=== PATIENT | male | born 1940 | race Caucasian/White ===

== ENCOUNTER 2017-07-29 16:45 | Emergency (ER) | payer MEDICARE, SELFPAY ==
--- NOTE | 2017-07-29 16:48 | EKG12_ITS ---
Test Reason : CP Blood Pressure : / mmHG Vent. Rate : 094 BPM Atrial Rate : 094 BPM P-R Int : 138 ms QRS Dur : 090 ms QT Int : 354 ms P-R-T Axes : 085 081 071 degrees QTc Int : 442 ms Sinus rhythm with Premature atrial complexes Otherwise normal ECG Confirmed by FRANDY THOMAS ([id number]), primer expeditor and drier LAURA WONG ([id number]) on 08/03/2017 2:44:10 PM Referred By: MARIO Confirmed By:FRANDY THOMAS
--- NOTE | 2017-07-29 16:48 | RAD_ITS ---
STUDY: X-RAY CHEST REASON FOR EXAM: Male, 77 years old. Chest pain, bilateral leg numbness TECHNIQUE: Single AP portable view of the chest. COMPARISON: Prior study of 11/18/2016 FINDINGS: hall monitor leads are present. Emphysematous changes of the lungs are noted. Surgical changes of both upper lobes are noted. There is no demonstrated pleural abnormality. Normal size heart. Normal mediastinum and cinthya. Normal visualized pulmonary arteries. There are calcified plaques of the aortic arch. Normal visualized thoracic spine. Normal visualized ribs, clavicles, and shoulders. There is no demonstrated abnormality of the visualized soft tissue structures of the upper abdomen. RAD/Chest 1 View (Portable) IMPRESSION: Emphysematous changes of the lungs are noted. The lungs are hyperinflated. Status post surgical changes of both upper lobes are noted. Calcified plaques of the aortic arch. No acute cardiopulmonary disease process is seen. Chest findings are stable in the interval. Electronically Signed: Tahir Balbuena MD at 17:13 EDT , Service support ,
[2017-07-29 16:50] VITALS: BP 152/91; PULSE 97; RESP 18; TEMP 36.6; O2SAT 97; BMI 28.7
[2017-07-29 16:53] VITALS: O2SAT 98
[2017-07-29] MEDS: Aspirin 81 MG TAB.CHEW 324 MG PO (16:57)
[2017-07-29 17:10] LABS: Absolute Lymphocyte Count 1.31 X10^3/ul (0.83-4.51); Absolute Neutrophil Count 4.1 X10^3/uL (2.0-7.7); Basophil# 0.03 X10^3/uL; Basophil% 0.5 % (0-1); Eosinophil# 0.14 X10^3/uL; Eosinophils% 2.3 % (0-5); Hematocrit 42.6 % (40-54); Hemoglobin 13.9 g/dl (13.0-16.5); Lymphocyte # 1.31 X10^3/ul (4.0); Lymphocyte % 21.2 % (19-41); Mean Corp Hgb Conc 32.6 g/gl (32-36); Mean Corpuscular Hgb 28.7 pg (27.0-32.0); Mean Platelet Vol. 9.8 fl (6.2-12.0); Monocyte# 0.59 X10^3/uL; Monocyte% 9.5 % (0-10); Neutrophil # 4.09 X10^3/uL (2.7-7.7); Neutrophil % 66.2 % (47-70); Platelet Count 248 K/mm3 (150-450); RBC Distribution Width CV 13.4 % (11.6-14.6); RBC Distribution Width SD 43.5 fl (35.1-43.9); Red Blood Count 4.84 M/mm3 (4.6-6.2); White Blood Count 6.2 K/mm3 (4.4-11.0)
[2017-07-29 17:11] LABS: POSITIVE COUNT NO; POSITIVE DIFFERENTIAL NO; POSITIVE MORPHOLOGY NO
[2017-07-29 17:24] LABS: Anion Gap 7 (5-15); BUN 15 mg/dL (7-18); BUN/Creat Ratio 12.4 RATIO (10-20); Calcium,Total 8.9 mg/dL (8.5-10.1); Chloride 107 mmol/L (98-107); Creatinine, Serum 1.21 mg/dL (0.70-1.30); EST Glomerular Filtration Rate 61 mL/min (>60); Est Glom Filt Rate - Afr Amer 74 mL/min (>60); Estimated Creatinine Clearance 46.28 ml/min; Glucose 122 mg/dL (74-106); Potassium 3.9 mmol/L (3.5-5.1); Sodium Level 139 mmol/L (136-145)
[2017-07-29 17:46] VITALS: BP 150/77; PULSE 85; RESP 18; O2SAT 98
[2017-07-29 18:16] VITALS: BP 148/73; PULSE 88; RESP 25; O2SAT 98
[2017-07-29 19:00] VITALS: BP 175/86; PULSE 91; RESP 18; O2SAT 98
[2017-07-29 19:06] VITALS: O2SAT 98
--- NOTE | 2017-07-29 20:04 | ED.VISSUMM ---
- ER Visit Summary Date of Service: 07/29/17 Chief Complaint: Bilateral legs tingling. History of Present Illness: The patient is a 77 M playing of bilateral legs tingling. Said last night he had mild chest discomfort in his epigastric region. That has since resolved. Denies any back pain. Denies any radiation to his upper chest, neck back or shoulders. No associated nausea, diaphoresis or worsening shortness of breath. He has chronic COPD but is not on home O2 because he cannot qualify for home O2. He does have a history of a known cardiac stent. Is on aspirin. Currently is pain-free. He denies any trouble moving his arms or legs. Denies any speech problems or acute change in his vision. Physical Examination: Well-appearing older male. Vital signs are stable afebrile. Pulse ox 90% on 2 L. H EENT exam unremarkable. No facial droop. Pupils round reactive light. Neck nontender no JVD. Lungs coarse breath sounds few scattered wheezing but no distress. Heart regular rate and rhythm no murmur. Abdomen soft nontender normal bowel sounds no peritoneal signs. No reproducible tenderness. Right upper right lower quadrant unremarkable. Moving all 4 extremities. Neurovascular intact. Calves are nontender without edema or cords. Is 5/5 livestock brands inspector strength. Dorsi plantar flexion intact. No signs of cauda equina. He can lift both legs off the bed. Neurologic exam is normal he has no focal motor or sensory deficits. His NIH is 0. Back exam normal. Test Results: CBC normal. Chemistries unremarkable. Troponin normal. Chest x-ray chronic changes consistent with COPD but no acute process. His EKG is a sinus rhythm with PACs. But no signs of PR or ischemia. Emergency Department Course and Treatment: Repeat exam patient is doing well. His exam is unchanged. Nurses did get him up and walk him he walked without any difficulty. He had no ataxia. He had no significant weakness in his legs. His pulse ox was 92% or greater. Treatment Plan: Patient be discharged to home. To follow-up with his primary care physician Dr. Dutch Lee. He meets no criteria for admission. I do have a long discussion with his and explained to her there is really nothing to admit him for at this time. Disposition: Discharge Impression: Atypical transient chest pain resolved Legs tingling of uncertain etiology History of CAD with cardiac stent This note was generated with [employer] dictation software. It may contain incorrect words, spelling, and punctuation that were not noted in review of the chart prior to signing ED Disposition - Plan for ED Patient: Chief Complaint: Chest Pain Referrals: Dutch Lee III, MD [Primary Care Provider] -
--- NOTE | 2017-07-29 20:08 | ED.DCSUM_ITS ---
- ER Visit Summary Date of Service: 07/29/17 Chief Complaint: Bilateral legs tingling. History of Present Illness: The patient is a 77 M playing of bilateral legs tingling. Said last night he had mild chest discomfort in his epigastric region. That has since resolved. Denies any back pain. Denies any radiation to his upper chest, neck back or shoulders. No associated nausea, diaphoresis or worsening shortness of breath. He has chronic COPD but is not on home O2 because he cannot qualify for home O2. He does have a history of a known cardiac stent. Is on aspirin. Currently is pain-free. He denies any trouble moving his arms or legs. Denies any speech problems or acute change in his vision. Physical Examination: Well-appearing older male. Vital signs are stable afebrile. Pulse ox 90% on 2 L. H EENT exam unremarkable. No facial droop. Pupils round reactive light. Neck nontender no JVD. Lungs coarse breath sounds few scattered wheezing but no distress. Heart regular rate and rhythm no murmur. Abdomen soft nontender normal bowel sounds no peritoneal signs. No reproducible tenderness. Right upper right lower quadrant unremarkable. Moving all 4 extremities. Neurovascular intact. Calves are nontender without edema or cords. Is 5/5 textile screen maker strength. Dorsi plantar flexion intact. No signs of cauda equina. He can lift both legs off the bed. Neurologic exam is normal he has no focal motor or sensory deficits. His NIH is 0. Back exam normal. Test Results: CBC normal. Chemistries unremarkable. Troponin normal. Chest x- ray chronic changes consistent with COPD but no acute process. His EKG is a sinus rhythm with PACs. But no signs of NV or ischemia. Emergency Department Course and Treatment: Repeat exam patient is doing well. His exam is unchanged. Nurses did get him up and walk him he walked without any difficulty. He had no ataxia. He had no significant weakness in his legs. His pulse ox was 92% or greater. Treatment Plan: Patient be discharged to home. To follow-up with his primary care physician Dr. Dutch Lee. He meets no criteria for admission. I do have a long discussion with his and explained to her there is really nothing to admit him for at this time. Disposition: Discharge Impression: Atypical transient chest pain resolved Legs tingling of uncertain etiology History of CAD with cardiac stent This note was generated with Muna dictation software. It may contain incorrect words, spelling, and punctuation that were not noted in review of the chart prior to signing ED Disposition - Plan for ED Patient: Chief Complaint: Chest Pain Referrals: Dutch Lee III, MD [Primary Care Provider] -
--- NOTE | 2017-07-29 20:08 | ED.DEP ---
ED Disposition - Plan for ED Patient: Disposition: Home or Assisted Living Chief Complaint: Chest Pain Instructions: ED Chest Pain Atypical Unkn Cause Referrals: Dutch Lee III, MD [Primary Care Provider] - As soon as possible Additional Instructions: Your tests were unremarkable. Follow-up your primary care physician.
== END 2017-07-29 20:20 | disposition home or self-care (01) ==
PROVIDERS: Emergency Provider Emergency Medicine; Family Provider Family Medicine; PCP Family Medicine
DX: R07.89 Other chest pain (principal); R20.2 Paresthesia of skin; I25.10 Atherosclerotic heart disease of native coronary artery without angina pectoris; I49.3 Ventricular premature depolarization; J44.9 Chronic obstructive pulmonary disease, unspecified; Z95.5 Presence of coronary angioplasty implant and graft; Z79.82 Long term (current) use of aspirin; Z79.899 Other long term (current) drug therapy
CPT/HCPCS: 71045; 80048; 84484; 85025; 93005; 99285

== ENCOUNTER 2017-08-24 19:08 | Inpatient (IN) | payer MEDICARE, SELFPAY ==
[2017-08-24] VITALS (9 sets, daily range): BP systolic 126–141; BP diastolic 43–78; PULSE 92–108; RESP 16–23; TEMP 36.6–36.9; O2SAT 96–98; BMI 27.4; BMI 27.0; BMI 27.1
--- NOTE | 2017-08-24 19:22 | EKG12_ITS ---
Test Reason : SOB Blood Pressure : / mmHG Vent. Rate : 105 BPM Atrial Rate : 105 BPM P-R Int : 160 ms QRS Dur : 092 ms QT Int : 344 ms P-R-T Axes : 084 079 074 degrees QTc Int : 454 ms Sinus tachycardia with Premature atrial complexes Low voltage QRS (limb leads) Confirmed by KAMRAN STOUT, JOHN ([id number]), pictures editor LAURA WONG ([id number]) on 08/27/2017 10:32:55 AM Referred By: APARNA Confirmed By:JOHN ANDREW MD
[2017-08-24] MEDS: Ipratropium/Albuterol Sulfate 3 ML AMPUL.NEB INHALATION ×2 (19:30→22:39)
[2017-08-24] MEDS: MethylPREDNISolone 125 MG/2 ML Vial IV (19:34)
[2017-08-24 19:41] LABS: Absolute Lymphocyte Count 1.32 X10^3/ul (0.83-4.51); Basophil# 0.03 X10^3/uL; Basophil% 0.5 % (0-1); Eosinophil# 0.12 X10^3/uL; Hematocrit 39.9 % (40-54); Hemoglobin 13.5 g/dl (13.0-16.5); Lymphocyte # 1.32 X10^3/ul (4.0); Lymphocyte % 21.7 % (19-41); Mean Corp Hgb Conc 33.8 g/gl (32-36); Mean Corpuscular Hgb 29.4 pg (27.0-32.0); Mean Corpuscular Volume 86.9 fL (80-94); Mean Platelet Vol. 9.5 fl (6.2-12.0); Monocyte% 9.9 % (0-10); Neutrophil # 4.01 X10^3/uL (2.7-7.7); Neutrophil % 65.7 % (47-70); Platelet Count 213 K/mm3 (150-450); RBC Distribution Width CV 12.9 % (11.6-14.6); RBC Distribution Width SD 40.2 fl (35.1-43.9); Red Blood Count 4.59 M/mm3 (4.6-6.2); White Blood Count 6.1 K/mm3 (4.4-11.0)
[2017-08-24 19:42] LABS: POSITIVE COUNT NO; POSITIVE DIFFERENTIAL NO; POSITIVE MORPHOLOGY NO
--- NOTE | 2017-08-24 19:47 | RAD_ITS ---
STUDY: X-RAY CHEST REASON FOR EXAM: Male, 77 years old. Increased short of breath. COPD. TECHNIQUE: Frontal and lateral views of the chest. COMPARISON: Jul 29 2017 4:53pm . FINDINGS: Stable severe hyperexpansion of the lungs. Severe bullous emphysema. Fibrotic changes in both lower lung arteaga. Postsurgical changes in both apices. No gross infiltrates or effusions. Normal size heart. Normal mediastinum and cinthya. Normal visualized pulmonary arteries. Normal visualized aortic arch and descending thoracic aorta. There are diffuse degenerative changes of the visualized thoracic spine. Normal visualized ribs, clavicles, and shoulders. There is no demonstrated abnormality of the visualized soft tissue structures of the upper abdomen. RAD/Chest PA and Lateral IMPRESSION: No definite acute abnormality or change. Stable severe bullous emphysema. Electronically Signed: Edy Duran MD at 20:12 EDT , Service support ,
[2017-08-24 19:57] LABS: Anion Gap 4 (5-15); BUN 14 mg/dL (7-18); BUN/Creat Ratio 11.6 RATIO (10-20); Chloride 109 mmol/L (98-107); Creatinine, Serum 1.21 mg/dL (0.70-1.30); EST Glomerular Filtration Rate 61 mL/min (>60); Est Glom Filt Rate - Afr Amer 74 mL/min (>60); Estimated Creatinine Clearance 44.67 ml/min; Glucose 141 mg/dL (74-106); Potassium 3.8 mmol/L (3.5-5.1); Sodium Level 142 mmol/L (136-145)
[2017-08-24] MEDS: Albuterol 2.5 MG/3 ML VIAL.NEB. INHALATION ×2 (20:00)
[2017-08-24 20:10] LABS: BNP,B-Type NATRIURETIC PEPTIDE 19.8 pg/mL (0-100)
[2017-08-24 20:16] LABS: Theophylline (Aminophylline) 9.6 ug/mL (10.0-20.0)
--- NOTE | 2017-08-24 20:32 | ED.VISSUMM ---
- ER Visit Summary Date of Service: 08/24/17 Chief Complaint: [Shortness of breath] History of Present Illness: The patient is a 77 M [presents to the emergency department shortness of breath started yesterday. Patient complains of a cough with small amount of sputum production that is white in color. Patient denies any fever. Patient denies any chest pain. Patient does describe some exertional dyspnea. Patient has history of COPD with partial lung resection 6 years ago for lung cancer. Patient denies recent travel or surgery. Patient has had similar episodes multiple times in the past. ] Physical Examination: [HEENT-PERRLA, EOMI. Cranial nerves II through XII grossly intact. TMs clear. Mucous membranes moist. No adenopathy. Cardiovascular-regular rate and rhythm without murmur or ectopy Lungs-diminished breath sounds bilaterally with expiratory wheezes bilaterally. Mild tachypnea with respiratory rate of 22 on my exam. Abdomen-normoactive bowel sounds, soft, nontender, no rebound or rigidity, no peritoneal signs. Extremities-intact ?4, normal range of motion, normal pulses, atraumatic]. No edema Test Results: [EKG obtained showed a sinus tachycardia with a ventricular rate of 105 bpm with occasional PACs. CBC with differential showed a white blood cell count of 6.1, heme globin 13.5, hematocrit 40, platelet 213. Chemistries unremarkable. Troponin was less than 0.015. Chest x-ray showed stable emphysematous changes otherwise nothing acute.] Emergency Department Course and Treatment: [Patient was treated with DuoNeb aerosol and albuterol aerosols. Patient started on Solu-Medrol 125 mg IV. Patient's pre-peak flows were 100 and post peak flows were 150. Patient continues to feel dyspneic.] Treatment Plan: [Admit] Disposition: [Admit] Impression: [COPD exacerbation] This note was generated with [employer] dictation software. It may contain incorrect words, spelling, and punctuation that were not noted in review of the chart prior to signing ED Disposition - Plan for ED Patient: Chief Complaint: Shortness of Breath Referrals: Dutch Lee III, MD [Primary Care Provider] -
--- NOTE | 2017-08-24 20:43 | HP.PCM_ITS ---
Problem List (1) COPD exacerbation Status: Acute (2) RSV (respiratory syncytial virus infection) Status: Resolved (3) Anxiety disorder Status: Chronic (4) COPD (chronic obstructive pulmonary disease) Status: Chronic (5) History of coronary angioplasty Status: Chronic (6) Type II diabetes mellitus Status: Chronic (7) H/O heart artery stent Status: Chronic (8) COPD exacerbation Status: Acute (9) Bronchitis Status: Acute History of Present Illness Date of Admission: 08/24/17 Chief Complaint: Shortness of breath since yesterday The patient is a 77 year old M WITH H/o COPD for about 30-40 years, lung cancer status post resection about 6 years ago and did not require adjuvant therapy came to ER with progressive worsening of shortness of breath for last 2 days. He denies chest pressure/chest pain, near syncope or syncope. He has severe anxiety and feels very nervous. On home medication, he is on DuoNeb nebulizer, Combivent and albuterol inhaler, theophylline, and Symbicort and Ativan. On review of previous discharge summary, she was last admitted in November 2016 for COPD exacerbation. Chest x-ray does not show acute finding. Past Medical History Past Medical History (Chronic Problems): Chronic Problems Anxiety disorder (Chronic) COPD (chronic obstructive pulmonary disease) (Chronic) History of coronary angioplasty (Chronic) Type II diabetes mellitus (Chronic) H/O heart artery stent (Chronic) Allergies gabapentin Allergy (Unknown, Verified 11/19/16 02:09) Unknown alprazolam [From Xanax] Allergy (Verified 11/09/16 17:54) breathing issues belladonna alkaloids Allergy (Verified 11/09/16 17:54) Unknown cephalexin Allergy (Verified 11/09/16 17:54) Unknown ciprofloxacin [From Cipro] Allergy (Verified 11/09/16 17:54) Unknown dicyclomine Allergy (Verified 11/09/16 17:54) Unknown diltiazem Allergy (Verified 11/09/16 17:54) Unknown ezetimibe Allergy (Verified 11/09/16 17:54) Unknown fluvastatin Allergy (Verified 11/09/16 17:54) Unknown metoprolol [From Toprol XL] Allergy (Verified 11/09/16 17:54) Unknown nitrofurantoin Allergy (Verified 11/09/16 17:54) Unknown phenobarbital Allergy (Verified 11/09/16 17:54) Unknown prochlorperazine [From Compazine] Allergy (Verified 11/09/16 17:54) Unknown simvastatin [From Zocor] Allergy (Verified 11/09/16 17:54) Unknown Rqgesyr-Drx-Cnd Reductase Inhibitor Allergy (Verified 11/09/16 17:54) Unknown sulfamethoxazole [From Bactrim] Allergy (Verified 11/09/16 17:54) Unknown tamsulosin [From Flomax] Allergy (Verified 11/09/16 17:54) Unknown trimethoprim [From Bactrim] Allergy (Verified 11/09/16 17:54) Unknown Home Medications: Ambulatory Orders Medication Instructions Recorded Aspirin [Aspirin, Baby] 81 mg PO DAILY@0800 11/13/15 Budesonide/Formoterol 160/4.5 2 puff INHALATION BID 11/13/15 [Symbicort 160/4.5 Mcg Inhaler (SP)] Doxazosin Mesylate [Cardura] 4 mg PO QHS 11/13/15 Finasteride [Proscar] 5 mg PO DAILY 11/13/15 Ipratropium/Albuterol Respimat 1 puff INHALATION 4X/DAY 11/13/15 [Combivent Respimat Inhal [place]] Lorazepam [Ativan] 1 mg PO BID 11/13/15 Mirtazapine [Remeron] 15 mg PO QHS 11/13/15 Omeprazole [Prilosec] 20 mg PO DINNER 11/13/15 Theophylline [Kevin-Dur] 300 mg PO BID 11/13/15 prednisoLONE eye drops (1 mL) 1 drop RIGHT EYE 4X/DAY PRN PRN 11/13/15 [Pred Forte eye drops (1 mL)] Ipratropium/Albuterol Sulfate 3 ml INHALATION BID #0 11/23/16 [Duoneb] Albuterol Inhaler [Ventolin Hfa] 1 - 2 puff INHALATION Q3H PRN 07/29/17 Guaifenesin [Mucinex] 1,200 mg PO DAILY PRN 07/29/17 Surgical History: - - lung reduction surgery and cancer removal.cath with stent 11-12 years ago. Cardiac stenting in 2001 Psychiatric History: Anxiety Smoking Status: Former smoker - *Family History Maternal History Items: Hypertension Paternal History Items: - - father was a smoker with copd Review of Systems Constitutional: Denies: Chills, Fever, Weight Change HEENT: Denies: Head Aches, Sinus Congestion, Sinus Drainage Cardiovascular: Denies: Chest Pain, Palpitations Respiratory: Reports: Cough, Shortness of breath at rest, Wheezing. Denies: Sputum production Gastrointestinal: Reports: Nausea. Denies: Abdominal Pain, Vomiting Genitourinary: Denies: Dysuria Musculoskeletal: Reports: Joint Pain. Denies: Joint Tenderness Skin: Denies: Rash, Wounds Neurological: Denies: Numbness, Tingling, Focal weakness Psychiatric: Reports: Anxiety, Depression. Denies: Homicidal Ideations, Suicidal Ideations Hematologic/ Lymphatic: Denies: Easy Bruising, Easy Bleeding VTE Information - Inpt Only VTE Present on Admission: No VTE Mechan Device Prophylaxis: SCD's VTE Pharm Prophylaxis ordered?: Yes Patient Problems: Active and Suspected Problems COPD exacerbation (Acute) - Physical Exam General: Alert, Oriented x3, Cooperative HEENT: Atraumatic, PERRLA, EOMI, Normocephalic Oral: Dry Mucosa Neck: Supple, No JVD, Negative Carotid Bruits Lungs: Diminished, Rhonchi, Short of Breath, Tachypneic Cardiovascular: Regular rate, No murmurs Abdomen: Bowel Sounds Present, Soft, Non Tender Extremities: No edema, Capillary Refill Less than 3 Seconds Skin: No rashes, No breakdown Musculoskeletal: No Tenderness to Palpation of Joints or Extremities Neurological: Cranial nerves II-XII grossly intact Psych/Mental Status: Normal Affect, Appropriate Vital Signs Temp Pulse Resp BP Pulse Ox 97.8 F 98 23 H 138/69 H 96 08/24/17 20:21 08/24/17 20:21 08/24/17 20:21 08/24/17 20:21 08/24/17 20:21 Oxygen Delivery Method Room Air Weight: 170 lb Body Mass Index (BMI) 27.4 Laboratory Tests Past 24 Hrs 08/24/17 08/24/17 08/24/17 19:30 19:30 19:30 WBC 6.1 RBC 4.59 L Hgb 13.5 Hct 39.9 L MCV 86.9 MCH 29.4 MCHC 33.8 RDW 12.9 RDW Differential 40.2 Plt Count 213 MPV 9.5 Immature Gran % (Auto) 0.200 Neut % (Auto) 65.7 Lymph % (Auto) 21.7 [place] % (Auto) 9.9 Eos % (Auto) 2.0 Baso % (Auto) 0.5 Absolute Neuts (auto) 4.0 Absolute Lymphs (auto) 1.32 Total Counted Not Reportable Sodium 142 Potassium 3.8 Chloride 109 H Carbon Dioxide 29.0 Anion Gap 4 L BUN 14 Creatinine 1.21 Estim Creat Clear Calc 44.67 Est GFR (MDRD) Af Amer 74 Est GFR (MDRD) Non-Af 61 BUN/Creatinine Ratio 11.6 Glucose 141 H Calcium 9.0 Troponin I < 0.015 B-Natriuretic Peptide 19.8 Theophylline 08/24/17 19:30 WBC RBC Hgb Hct MCV MCH MCHC RDW RDW Differential Plt Count MPV Immature Gran % (Auto) Neut % (Auto) Lymph % (Auto) [place] % (Auto) Eos % (Auto) Baso % (Auto) Absolute Neuts (auto) Absolute Lymphs (auto) Total Counted Sodium Potassium Chloride Carbon Dioxide Anion Gap BUN Creatinine Estim Creat Clear Calc Est GFR (MDRD) Af Amer Est GFR (MDRD) Non-Af BUN/Creatinine Ratio Glucose Calcium Troponin I B-Natriuretic Peptide Theophylline 9.6 L Assessment/Plan Active and Suspected Problems COPD exacerbation (Acute) The patient is a 77 year old M WITH H/o COPD for about 30-40 years, lung cancer status post resection about 6 years ago and did not require adjuvant therapy came to ER with progressive worsening of shortness of breath for last 2 days. He denies chest pressure/chest pain, near syncope or syncope. He has severe anxiety and feels very nervous. On home medication, he is on DuoNeb nebulizer, Combivent and albuterol inhaler, theophylline, and Symbicort and Ativan. On review of previous discharge summary, she was last admitted in November 2016 for COPD exacerbation. Chest x-ray does not show acute finding. EKG shows sinus tachycardia at 105 bpm with PACs. 1. COPD exacerbation probably from moderate acute bronchitis: Patient is being admitted on the regular MedSurg floor. Started on COPD protocol with IV Solu- Medrol, bronchodilator [id number], IV Zithromax, oxygen therapy as needed , incentive spirometry and chest physiotherapy. Respiratory panel ordered. Chest x-ray does not show any acute change or pneumonia. 2. History of lung cancer status post resection: 3. Diabetes mellitus type 2: Accu-Chek before meals and at bedtime and cover with sliding scale insulin. 4. Coronary artery disease status post stent 5. Anxiety disorder: Home medication reconciliation done. DVT prophylaxis: Heparin 5000 units subcutaneous twice daily and bilateral SCDs. Advanced directive: Patient has living will at home. Patient is clear on the option of end-of-life care and life goal. He wants DNR CC arrest. Discussed with the patient, patient's son-in-law and his near the bedside. Total time spent in [id number] encounter: 17 minutes Clinical Impression(s) from Imaging Studies Chest X-Ray 08/24/17 19:47 IMPRESSION: No definite acute abnormality or change. Stable severe bullous emphysema. Laboratory Results 08/24/17 19:30: WBC 6.1, RBC 4.59 L, Hgb 13.5, Hct 39.9 L, MCV 86.9, MCH 29.4, MCHC 33.8, RDW 12.9, RDW Differential 40.2, Plt Count 213, MPV 9.5, Immature Gran % (Auto) 0.200, Neut % (Auto) 65.7, Lymph % (Auto) 21.7, [place] % (Auto) 9.9 , Eos % (Auto) 2.0, Baso % (Auto) 0.5, Absolute Neuts (auto) 4.0, Absolute Lymphs (auto) 1.32, Total Counted Not Reportable 08/24/17 19:30: Sodium 142, Potassium 3.8, Chloride 109 H, Carbon Dioxide 29.0, Anion Gap 4 L, BUN 14, Creatinine 1.21, Estim Creat Clear Calc 44.67, Est GFR ( MDRD) Af Amer 74, Est GFR (MDRD) Non-Af 61, BUN/Creatinine Ratio 11.6, Glucose 141 H, Calcium 9.0, Troponin I < 0.015 08/24/17 19:30: B-Natriuretic Peptide 19.8 08/24/17 19:30: Theophylline 9.6 L [] Code Visit Inpatient E&M: 75044 Init Hosp L3 Procedures: 60304 Advncd Care Plan 30 Min
[2017-08-24] MEDS: Heparin Injection (Vial) 5,000 UNIT/ML VIAL 5000 UNIT SC (22:08)
[2017-08-24] MEDS: LORazepam 1 MG Tablet PO (22:08)
[2017-08-24] MEDS: 0.9% Normal Saline 1,000 ML 75 ML IV (22:08)
[2017-08-24] MEDS: Doxazosin 4 MG Tablet PO (22:08)
[2017-08-24] MEDS: Mirtazapine 15 MG Tablet PO (22:08)
[2017-08-24] MEDS: guaiFENesin 1,200 MG Tablet 1200 MG PO (22:20)
[2017-08-25] VITALS (16 sets, daily range): BP systolic 127–145; BP diastolic 80–84; PULSE 90–132; RESP 18–20; TEMP 36.5–36.9; O2SAT 95–99
[2017-08-25] MEDS: Ipratropium/Albuterol Sulfate 3 ML AMPUL.NEB INHALATION ×8 (02:03→23:04)
[2017-08-25 06:27] LABS: Theophylline (Aminophylline) 12.2 ug/mL (10.0-20.0)
[2017-08-25 06:29] LABS: ALB/GLOB Ratio 1.2 RATIO (0.9-2.4); AST(SGOT) 11 U/L (15-37); Alanine Aminotransfer ALT/SGPT 15 U/L (16-61); Albumin, Serum 3.8 g/dL (3.2-5.0); Alkaline Phosphatase 91 U/L (45-117); Anion Gap 11 (5-15); BUN 14 mg/dL (7-18); BUN/Creat Ratio 11.7 RATIO (10-20); Calcium,Total 9.1 mg/dL (8.5-10.1); Chloride 108 mmol/L (98-107); EST Glomerular Filtration Rate 62 mL/min (>60); Est Glom Filt Rate - Afr Amer 75 mL/min (>60); Estimated Creatinine Clearance 45.04 ml/min; Globulin 3.3 g/dL (2.2-4.2); Glucose 242 mg/dL (74-106); Protein, Total 7.1 g/dL (6.4-8.2); Sodium Level 142 mmol/L (136-145)
[2017-08-25] MEDS: 0.9% NaCl Peripheral Flush Adult/Peds IV ×2 (06:30→13:16)
[2017-08-25] MEDS: Aspirin 81 MG TAB.CHEW PO (07:49)
[2017-08-25] MEDS: Heparin Injection (Vial) 5,000 UNIT/ML VIAL 5000 UNIT SC ×2 (07:49→20:51)
[2017-08-25] MEDS: Finasteride 5 MG Tablet PO (07:49)
[2017-08-25] MEDS: guaiFENesin 1,200 MG Tablet 1200 MG PO ×2 (07:50→20:50)
[2017-08-25] MEDS: Azithromycin 250 MG Tablet 500 MG PO (07:54)
[2017-08-25] MEDS: LORazepam 1 MG Tablet PO ×2 (07:54→20:56)
--- NOTE | 2017-08-25 10:50 | CASEMGMT ---
RN RAZA Face to Face with patient for initial transition planning/care coordination assessment. RN CM introduced self and role at [facility]. Patient sitting in chair, alert and oriented. Patient willing to participate in assessment and is able to answer all questions appropriately. Care providers, pharmacy, and demographics verified. See link attached. Patient wishes to discharge home, denies need for home health at this time. Patient states he has no further needs or concerns at this time. RN CM will continue to monitor for need for home oxygen setup. CM to follow for discharge planning needs that may arise. Disposition Plan: Patient to discharge home with family support and follow-up plans in place.
--- NOTE | 2017-08-25 12:27 | PCM.CONS.GEN ---
Reason for Consult History of Present Illness: The patient is a 77 year old M known to me for severe end-stage COPD The patient reports that he developed 2 days of worsening tightness in the chest He denies any palpitations chest pressure or pain He indicates that he could not get any air The patient has end-stage disease and often presents very tight, he does not always wheeze He is status post lung volume reduction surgery, over 5 years ago He also had resection for carcinoma at the same time He currently is without sputum production chest congestion URI or LRI symptomatology He denies fevers chills malaise He is no better after 12 hours of therapy Albuterol is effective for about 2 hours in the aerosol form at this current time] Past Medical History Past Medical History (Chronic Problems): Chronic Problems Anxiety disorder (Chronic) COPD (chronic obstructive pulmonary disease) (Chronic) History of coronary angioplasty (Chronic) Type II diabetes mellitus (Chronic) H/O heart artery stent (Chronic) Allergies gabapentin Allergy (Unknown, Verified 11/19/16 02:09) Unknown alprazolam [From Xanax] Allergy (Verified 11/09/16 17:54) breathing issues belladonna alkaloids Allergy (Verified 11/09/16 17:54) Unknown cephalexin Allergy (Verified 11/09/16 17:54) Unknown ciprofloxacin [From Cipro] Allergy (Verified 11/09/16 17:54) Unknown dicyclomine Allergy (Verified 11/09/16 17:54) Unknown diltiazem Allergy (Verified 11/09/16 17:54) Unknown ezetimibe Allergy (Verified 11/09/16 17:54) Unknown fluvastatin Allergy (Verified 11/09/16 17:54) Unknown metoprolol [From Toprol XL] Allergy (Verified 11/09/16 17:54) Unknown nitrofurantoin Allergy (Verified 11/09/16 17:54) Unknown phenobarbital Allergy (Verified 11/09/16 17:54) Unknown prochlorperazine [From Compazine] Allergy (Verified 11/09/16 17:54) Unknown simvastatin [From Zocor] Allergy (Verified 11/09/16 17:54) Unknown Daclmuh-Rke-Oou Reductase Inhibitor Allergy (Verified 11/09/16 17:54) Unknown sulfamethoxazole [From Bactrim] Allergy (Verified 11/09/16 17:54) Unknown tamsulosin [From Flomax] Allergy (Verified 11/09/16 17:54) Unknown trimethoprim [From Bactrim] Allergy (Verified 11/09/16 17:54) Unknown Home Medications: Ambulatory Orders Medication Instructions Recorded Aspirin [Aspirin, Baby] 81 mg PO DAILY@0800 11/13/15 Budesonide/Formoterol 160/4.5 2 puff INHALATION BID 11/13/15 [Symbicort 160/4.5 Mcg Inhaler (SP)] Doxazosin Mesylate [Cardura] 4 mg PO QHS 11/13/15 Finasteride [Proscar] 5 mg PO DAILY 11/13/15 Ipratropium/Albuterol Respimat 1 puff INHALATION 4X/DAY 11/13/15 [Combivent Respimat Inhal [place]] Lorazepam [Ativan] 1 mg PO BID 11/13/15 Mirtazapine [Remeron] 15 mg PO QHS 11/13/15 Omeprazole [Prilosec] 20 mg PO DINNER 11/13/15 Theophylline [Kevin-Dur] 300 mg PO BID 11/13/15 prednisoLONE eye drops (1 mL) 1 drop RIGHT EYE 4X/DAY PRN PRN 11/13/15 [Pred Forte eye drops (1 mL)] Ipratropium/Albuterol Sulfate 3 ml INHALATION BID #0 11/23/16 [Duoneb] Albuterol Inhaler [Ventolin Hfa] 1 - 2 puff INHALATION Q3H PRN 07/29/17 Guaifenesin [Mucinex] 1,200 mg PO DAILY PRN 07/29/17 Surgical History: - - lung reduction surgery and cancer removal.cath with stent 11-12 years ago. Cardiac stenting in 2001 Psychiatric History: Anxiety Smoking Status: Former smoker - *Family History Maternal History Items: Hypertension Paternal History Items: - - father was a smoker with copd Review of Systems Constitutional: Denies: Chills, Fever, Weight Change Eyes: Reports: - - Reports allergy symptoms over the last couple weeks conjunctival irritation some postnasal drainage and congestion HEENT: Denies: Head Aches, Sinus Congestion, Sinus Drainage Cardiovascular: Denies: Chest Pain, Palpitations Respiratory: Denies: Cough, Shortness of breath at rest, Sputum production Gastrointestinal: Reports: - - He reports frequent bowel movements and abdominal bloating. Denies: Abdominal Pain, Nausea, Vomiting Genitourinary: Denies: Dysuria Musculoskeletal: Denies: Joint Pain, Joint Tenderness Skin: Denies: Rash, Wounds Neurological: Denies: Numbness, Tingling, Focal weakness Psychiatric: Denies: Anxiety, Depression, Homicidal Ideations, Suicidal Ideations Hematologic/ Lymphatic: Denies: Easy Bruising, Easy Bleeding Patient Problems: Active and Suspected Problems COPD exacerbation (Acute) - Physical Exam General: Alert, Oriented x3, Cooperative HEENT: Atraumatic, PERRLA, EOMI, Normocephalic Neck: Supple, No JVD, Negative Carotid Bruits Lungs: Clear to auscultation, - - The patient has nearly absent breath sounds. Chest moves minimally he has a long expiratory phase, short inspiratory phase. There is no wheezing, there are no rales, diminished breath sounds are noted in the right base. Cardiovascular: Regular rate, No murmurs, - - Tachycardia with frequent premature contractions Abdomen: Bowel Sounds Present, Soft, Non Tender Extremities: No edema, Capillary Refill Less than 3 Seconds Skin: No rashes, No breakdown Musculoskeletal: No Tenderness to Palpation of Joints or Extremities Neurological: Cranial nerves II-XII grossly intact Psych/Mental Status: Normal Affect, Appropriate Vital Signs Temp Pulse Resp BP Pulse Ox 98.1 F 126 H 20 H 144/80 H 96 08/25/17 07:43 08/25/17 10:09 08/25/17 10:56 08/25/17 07:43 08/25/17 10:56 Oxygen Flow Rate (L/min) 1 Oxygen Delivery Method Room Air Weight: 77.196 kg Body Mass Index (BMI) 27.0 Intake and Output for Last 24 Hours 08/23/17 08/24/17 08/25/17 23:59 23:59 23:59 Intake Total 2091 / 2091 Output Total 1000 / 1000 Balance 1092 / 1092 Microbiology Past 72 Hours 08/24/17 22:50 Respiratory Panel (PCR) - Final Mucosa - Nasopharyngeal Laboratory Tests Past 24 Hrs 08/25/17 08/25/17 05:40 05:40 Sodium 142 Potassium 4.0 Chloride 108 H Carbon Dioxide 23.0 Anion Gap 11 BUN 14 Creatinine 1.20 Estim Creat Clear Calc 45.04 Est GFR (MDRD) Af Amer 75 Est GFR (MDRD) Non-Af 62 BUN/Creatinine Ratio 11.7 Glucose 242 H Calcium 9.1 Total Bilirubin 0.30 AST 11 L ALT 15 L Alkaline Phosphatase 91 Total Protein 7.1 Albumin 3.8 Globulin 3.3 Albumin/Globulin Ratio 1.2 Theophylline 12.2 Assessment/Plan Active and Suspected Problems COPD exacerbation (Acute) The chest x-ray shows hyperinflation without infiltrates, effusions, enlarged cardiac silhouette or evidence of CHF B TNP was normal hemoglobin 13.5 electrolytes unremarkable with exception of elevated chloride creatinine 1.2 theophylline level 9.6 Impression: Exacerbation COPD likely due to abdominal bloating and allergies This patient is very tenuous. He has relatively severe disease and is status post lung volume reduction. She has done well on the above regimen of theophylline albuterol and Atrovent nebulized along with Symbicort He does well with steroids but it will take 3 or 4 days of IV Solu-Medrol before he can move air better I do agree with the guaifenesin 1200 mg but I would advance it to twice daily I would also advance p.o. liquids. The patient is chronically on, he is unable to afford Daliresp which may offer benefit Long-acting Laba lama combinations would also likely help with the cost is prohibitive Objective data can be obtained by having the patient perform peak flow meter every shift over the next 72 hours When the patient senses he has air movement, it will be safe to discharge with or without oxygen Long-term plans might be the addition of noninvasive ventilation as needed
--- NOTE | 2017-08-25 13:44 | PCM.PROGNOTE ---
Patient Problems: Active and Suspected Problems COPD exacerbation (Acute) Subjective: Pt has had minimal improvement in SOB. He is upright in bed SOB, however does not have the O2 in his nose, it is off to the side. He has had a dry cough and feels unable to clear mucus. He has no fevers or chills. He follows with Dr. Hernandes. He is very SOB with exertion. - Physical Exam General: Alert, Oriented x3, Cooperative HEENT: Atraumatic, PERRLA, EOMI, Normocephalic Neck: Supple, No JVD, Negative Carotid Bruits Lungs: Diminished - severely, Wheezes - faint Cardiovascular: Regular rate, No murmurs Abdomen: Bowel Sounds Present, Soft, Non Tender Extremities: No edema, Capillary Refill Less than 3 Seconds Skin: No rashes, No breakdown Musculoskeletal: No Tenderness to Palpation of Joints or Extremities Neurological: Cranial nerves II-XII grossly intact Psych/Mental Status: Normal Affect, Appropriate, Alert and oriented to time, place, person, mood and affect Vital Signs Temp Pulse Resp BP Pulse Ox 98.1 F 126 H 20 H 144/80 H 96 08/25/17 07:43 08/25/17 10:09 08/25/17 10:56 08/25/17 07:43 08/25/17 10:56 Oxygen Flow Rate (L/min) 1 Oxygen Delivery Method Room Air Weight: 77.196 kg Body Mass Index (BMI) 27.0 Intake and Output for Last 24 Hours 08/23/17 08/24/17 08/25/17 23:59 23:59 23:59 Intake Total 2 / 2092 Output Total 1000 / 1000 Balance 1092 / 1092 Microbiology Past 72 Hours 08/24/17 22:50 Respiratory Panel (PCR) - Final Mucosa - Nasopharyngeal Laboratory Tests Past 24 Hrs 08/25/17 08/25/17 05:40 05:40 Sodium 142 Potassium 4.0 Chloride 108 H Carbon Dioxide 23.0 Anion Gap 11 BUN 14 Creatinine 1.20 Estim Creat Clear Calc 45.04 Est GFR (MDRD) Af Amer 75 Est GFR (MDRD) Non-Af 62 BUN/Creatinine Ratio 11.7 Glucose 242 H Calcium 9.1 Total Bilirubin 0.30 AST 11 L ALT 15 L Alkaline Phosphatase 91 Total Protein 7.1 Albumin 3.8 Globulin 3.3 Albumin/Globulin Ratio 1.2 Theophylline 12.2 Medical Necessity - Tobacco Use Smoking Status: Former smoker Assessment/Plan Active and Suspected Problems COPD exacerbation (Acute) 1. Acute COPD exacerbation - bullous emphysema. Dr. Hernandes following. Still very SOB at rest + exertion. Continue current therapy. BNP and troponin neg. CXR with emphysema. No fever or leukocytosis. Doubt infectious etiology. Negative Viral panel. Weaned off O2. Does not use at home. -Hx lung reduction and lung CA with resection - in remission. 2. Tachy - repeat EKG. irreg on exam. Probably 2/2 aerosols. Last night ekg with PACs. 3. T2DM - not on home meds. Add SSI and check A1c. Likely needs rx at dc. 4. CAD with hx of CABG and stent - continue home meds. 5. Anxiety - home meds DC planning: may need home oxygen. DVT ppx: heparin This patient was seen by Edwin Orellana PA-C under the supervision of Dr. Sánchez
--- NOTE | 2017-08-25 14:47 | ECHOCS_ITS ---
Reason For Study: DYSPNEA/SOB Procedure This was a 2D Doppler, Color Flow transthoracic echocardiogram. The study was technically difficult. Exam performed portable in patient room. Left Ventricle Normal size and thickness. The estimated ejection fraction is 65 %. Stage 2 diastolic dysfunction. No regional wall motion abnormalities noted. Right Ventricle Normal size and thickness. Normal systolic function. Atria Normal left atrium. Normal right atrium. Normal atrial septum. Mitral Valve The mitral valve is structurally normal. No prolapse or stenosis seen. Tricuspid Valve Normal tricuspid valve. Unable to estimate RV systolic pressure due to inadequate jet, pulmonary artery pressure probably normal. Aortic Valve Normal aortic valve. Trisinus/trileaflet aortic valve. Pulmonic Valve Normal pulmonic valve. Great Vessels Normal aortic root. Normal arch. Normal inferior vena cava. Inferior vena cava collapse with sniff. Pericardium/Pleural No pericardial effusion. Medication Diluted definity 3ml given slow IV push to enhance endocardial definition. MMode/2D Measurements & Calculations LVIDd: 4.1 cm IVSd: 0.82 cm LVIDs: 2.7 cm LVPWd: 0.95 cm FS: 36.0 % Doppler Measurements & Calculations Ao V2 max: 146.0 cm/sec LV V1 max: 109.9 cm/sec PA V2 max: 121.0 cm/sec Ao max P.6 mmHg LV V1 max P.8 mmHg Interpretation Summary The estimated ejection fraction is 65 %. Stage 2 diastolic dysfunction. Unable to estimate RV systolic pressure due to inadequate jet, pulmonary artery pressure probably normal. There is no comparison study available. Ordering Physician: Edwin Orellana Referring Physician: FEROZ BAE Performed By: Dona Fortune RDCS
[2017-08-25] MEDS: Carvedilol 6.25 MG Tablet PO ×2 (15:01→20:50)
[2017-08-25] MEDS: Insulin Lispro 100 UNIT/ML INSULN.PEN SC ×2 (17:08→22:37)
[2017-08-25] MEDS: Pantoprazole Sodium 20 MG Tablet PO (17:08)
[2017-08-25 17:10] LABS: Bedside Glucose 179 mg/dL (70-110)
[2017-08-25] MEDS: Mirtazapine 15 MG Tablet PO (20:50)
[2017-08-25] MEDS: Doxazosin 4 MG Tablet PO (20:50)
[2017-08-25 22:46] LABS: Bedside Glucose 169 mg/dL (70-110)
[2017-08-26] VITALS (9 sets, daily range): BP systolic 130–156; BP diastolic 70–94; PULSE 95–123; RESP 18–22; TEMP 36.4–36.7; O2SAT 88–97
[2017-08-26] MEDS: Ipratropium/Albuterol Sulfate 3 ML AMPUL.NEB INHALATION ×4 (02:46→15:13)
[2017-08-26 07:05] LABS: Bedside Glucose 167 mg/dL (70-110)
[2017-08-26] MEDS: Aspirin 81 MG TAB.CHEW PO (07:28)
[2017-08-26] MEDS: Carvedilol 6.25 MG Tablet PO (07:28)
[2017-08-26] MEDS: Insulin Lispro 100 UNIT/ML INSULN.PEN SC ×2 (07:28→17:10)
[2017-08-26] MEDS: Heparin Injection (Vial) 5,000 UNIT/ML VIAL 5000 UNIT SC (07:28)
[2017-08-26] MEDS: Azithromycin 250 MG Tablet 500 MG PO (07:28)
[2017-08-26] MEDS: guaiFENesin 1,200 MG Tablet 1200 MG PO (07:28)
[2017-08-26] MEDS: Finasteride 5 MG Tablet PO (07:28)
[2017-08-26] MEDS: LORazepam 1 MG Tablet PO (08:37)
[2017-08-26] MEDS: Albuterol 2.5 MG/3 ML VIAL.NEB. INHALATION (09:35)
[2017-08-26 11:00] LABS: Bedside Glucose 132 mg/dL (70-110)
[2017-08-26] MEDS: 0.9% NaCl Peripheral Flush Adult/Peds IV (13:01)
--- NOTE | 2017-08-26 15:30 | PCM.HOSP.N ---
Hospitalist Note Hospitalist note : Patient was ambulated on room air, his O2 sat was 88% on room air. He requires home O2, he is fully ambulatory at home and will need portable oxygen. ICD code J 44.9
--- NOTE | 2017-08-26 16:23 | PCM.DC ---
- Discharge Diagnoses Current Active Problems: Current Active and Chronic Problems COPD exacerbation (Acute) You will use the following diet at home:: No restrictions Your food should be the consistency of: Regular Your liquids should be the consistency of: Regular/Thin Discharge Activity: Return to Normal Activity Weight Bearing Status: Full weight bearing Additional Instructions: use oxygen at 2 liters/min when ambulating or when short of breath Allergies/Adverse Reactions: Allergies gabapentin Allergy (Unknown, Verified 11/19/16 02:09) Unknown alprazolam [From Xanax] Allergy (Verified 11/09/16 17:54) breathing issues belladonna alkaloids Allergy (Verified 11/09/16 17:54) Unknown cephalexin Allergy (Verified 11/09/16 17:54) Unknown ciprofloxacin [From Cipro] Allergy (Verified 11/09/16 17:54) Unknown dicyclomine Allergy (Verified 11/09/16 17:54) Unknown diltiazem Allergy (Verified 11/09/16 17:54) Unknown ezetimibe Allergy (Verified 11/09/16 17:54) Unknown fluvastatin Allergy (Verified 11/09/16 17:54) Unknown metoprolol [From Toprol XL] Allergy (Verified 11/09/16 17:54) Unknown nitrofurantoin Allergy (Verified 11/09/16 17:54) Unknown phenobarbital Allergy (Verified 11/09/16 17:54) Unknown prochlorperazine [From Compazine] Allergy (Verified 11/09/16 17:54) Unknown simvastatin [From Zocor] Allergy (Verified 11/09/16 17:54) Unknown Nwxwunr-Twj-Yak Reductase Inhibitor Allergy (Verified 11/09/16 17:54) Unknown sulfamethoxazole [From Bactrim] Allergy (Verified 11/09/16 17:54) Unknown tamsulosin [From Flomax] Allergy (Verified 11/09/16 17:54) Unknown trimethoprim [From Bactrim] Allergy (Verified 11/09/16 17:54) Unknown Medications to take at Discharge Aspirin [Aspirin, Baby] 81 mg PO DAILY@0800 11/13/15 Budesonide/Formoterol 160/4.5 [Symbicort 160/4.5 Mcg Inhaler (SP)] 2 puff INHALATION BID 11/13/15 Doxazosin Mesylate [Cardura] 4 mg PO QHS 11/13/15 Finasteride [Proscar] 5 mg PO DAILY 11/13/15 Mirtazapine [Remeron] 15 mg PO QHS 11/13/15 Omeprazole [Prilosec] 20 mg PO DINNER 11/13/15 Theophylline [Kevin-Dur] 300 mg PO BID 11/13/15 prednisoLONE eye drops (1 mL) [Pred Forte eye drops (1 mL)] 1 drop RIGHT EYE 4X/DAY PRN PRN 11/13/15 Guaifenesin [Mucinex] 1,200 mg PO DAILY PRN 07/29/17 Albuterol Inhaler [Ventolin Hfa] 1 - 2 puff INHALATION Q4H PRN PRN #1 inhaler 08/26/17 Carvedilol [Coreg (Beta Neil)] 6.25 mg PO BID #60 tab 08/26/17 Ipratropium/Albuterol Sulfate [Duoneb] 3 ml INHALATION 4X/DAY #1 ampul.neb 08/26/17 Lorazepam [Ativan] 1 mg PO BID #60 tab 08/26/17 Prednisone 20 mg PO UD #10 tab 08/26/17 The following prescriptions were given: Albuterol Inhaler [Ventolin Hfa] 1 - 2 puff INHALATION Q4H PRN PRN #1 inhaler PRN Reason: Sob &/Or Wheezing Prednisone 20 mg PO UD #10 tab Carvedilol [Coreg (Beta Neil)] 6.25 mg PO BID #60 tab Lorazepam [Ativan] 1 mg PO BID #60 tab Ipratropium/Albuterol Sulfate [Duoneb] 3 ml INHALATION 4X/DAY #1 ampul.neb Primary Care Physician: Dutch Lee III, MD [Primary Care Provider] - Please follow up with your Primary Care Physician in: in one week Please Follow Up With: Андрей Hernandes MD When: in 2 weeks
--- NOTE | 2017-08-26 16:26 | DCINST_ITS ---
- Discharge Diagnoses Current Active Problems: Current Active and Chronic Problems COPD exacerbation (Acute) You will use the following diet at home:: No restrictions Your food should be the consistency of: Regular Your liquids should be the consistency of: Regular/Thin Discharge Activity: Return to Normal Activity Weight Bearing Status: Full weight bearing Additional Instructions: use oxygen at 2 liters/min when ambulating or when short of breath Allergies/Adverse Reactions: Allergies gabapentin Allergy (Unknown, Verified 11/19/16 02:09) Unknown alprazolam [From Xanax] Allergy (Verified 11/09/16 17:54) breathing issues belladonna alkaloids Allergy (Verified 11/09/16 17:54) Unknown cephalexin Allergy (Verified 11/09/16 17:54) Unknown ciprofloxacin [From Cipro] Allergy (Verified 11/09/16 17:54) Unknown dicyclomine Allergy (Verified 11/09/16 17:54) Unknown diltiazem Allergy (Verified 11/09/16 17:54) Unknown ezetimibe Allergy (Verified 11/09/16 17:54) Unknown fluvastatin Allergy (Verified 11/09/16 17:54) Unknown metoprolol [From Toprol XL] Allergy (Verified 11/09/16 17:54) Unknown nitrofurantoin Allergy (Verified 11/09/16 17:54) Unknown phenobarbital Allergy (Verified 11/09/16 17:54) Unknown prochlorperazine [From Compazine] Allergy (Verified 11/09/16 17:54) Unknown simvastatin [From Zocor] Allergy (Verified 11/09/16 17:54) Unknown Dsgmvgj-Nij-Ytr Reductase Inhibitor Allergy (Verified 11/09/16 17:54) Unknown sulfamethoxazole [From Bactrim] Allergy (Verified 11/09/16 17:54) Unknown tamsulosin [From Flomax] Allergy (Verified 11/09/16 17:54) Unknown trimethoprim [From Bactrim] Allergy (Verified 11/09/16 17:54) Unknown Medications to take at Discharge Aspirin [Aspirin, Baby] 81 mg PO DAILY@0800 11/13/15 Budesonide/Formoterol 160/4.5 [Symbicort 160/4.5 Mcg Inhaler (SP)] 2 puff INHALATION BID 11/13/15 Doxazosin Mesylate [Cardura] 4 mg PO QHS 11/13/15 Finasteride [Proscar] 5 mg PO DAILY 11/13/15 Mirtazapine [Remeron] 15 mg PO QHS 11/13/15 Omeprazole [Prilosec] 20 mg PO DINNER 11/13/15 Theophylline [Kevin-Dur] 300 mg PO BID 11/13/15 prednisoLONE eye drops (1 mL) [Pred Forte eye drops (1 mL)] 1 drop RIGHT EYE 4X/ DAY PRN PRN 11/13/15 Guaifenesin [Mucinex] 1,200 mg PO DAILY PRN 07/29/17 Albuterol Inhaler [Ventolin Hfa] 1 - 2 puff INHALATION Q4H PRN PRN #1 inhaler Carvedilol [Coreg (Beta Neil)] 6.25 mg PO BID #60 tab 08/26/17 Ipratropium/Albuterol Sulfate [Duoneb] 3 ml INHALATION 4X/DAY #1 ampul.neb 08/26 Lorazepam [Ativan] 1 mg PO BID #60 tab 08/26/17 Prednisone 20 mg PO UD #10 tab 08/26/17 The following prescriptions were given: Albuterol Inhaler [Ventolin Hfa] 1 - 2 puff INHALATION Q4H PRN PRN #1 inhaler PRN Reason: Sob &/Or Wheezing Prednisone 20 mg PO UD #10 tab Carvedilol [Coreg (Beta Neil)] 6.25 mg PO BID #60 tab Lorazepam [Ativan] 1 mg PO BID #60 tab Ipratropium/Albuterol Sulfate [Duoneb] 3 ml INHALATION 4X/DAY #1 ampul.neb Primary Care Physician: Dutch Lee III, MD [Primary Care Provider] - Please follow up with your Primary Care Physician in: in one week Please Follow Up With: Андрей Hernandes MD When: in 2 weeks
[2017-08-26] MEDS: Pantoprazole Sodium 20 MG Tablet PO (17:10)
[2017-08-26 17:20] LABS: Bedside Glucose 184 mg/dL (70-110)
--- NOTE | 2017-08-27 15:54 | CASEMGMT ---
SOFIA PERSON Discharge Follow-up Phone Call: CHU: Kezia Strata: 3 Call Date: 08/27/17 Discharge Date: 08/26/17 Time of Call: 1550 Duration: 5 Min Admitting Diagnosis: COPD EXA SOFIA PERSON completed follow-up phone call after recent hospitalization. Patient states that he is doing pretty well and states his breathing is not too bad. Patient states that his home oxygen from [facility] got delivered without any problems. Patient states that he gets pretty short of breath with activity but is using his portable oxygen. Patient states that he has no questions regarding discharge instructions and was able to sisal picker prescriptions without any problems. Patient states he has a follow-up appt scheduled for Thursday 08/31.
--- NOTE | 2017-08-27 16:42 | PCM.DC.SUM ---
Discharge Date and Diagnosis Date of Admission: 08/24/17 Date of Discharge: 08/26/17 - Primary Discharge Diagnosis #1 acute exacerbation of COPD #2 hypoxia secondary to acute exacerbation of COPD #3 sinus tachycardia secondary to chronic obstructive pulmonary disease and the effects of beta agonist aerosol treatments #4 anxiety disorder #5 coronary artery disease #6 type 2 diabetes - Secondary Discharge Diagnosis Chronic Problems Anxiety disorder (Chronic) COPD (chronic obstructive pulmonary disease) (Chronic) History of coronary angioplasty (Chronic) Type II diabetes mellitus (Chronic) H/O heart artery stent (Chronic) Hospital Course and Treatment Operations: None Procedures: 2-D Echocardiogram Summary of Care Provided: The patient is a 77 year old M who was seen in the emergency room at [facility] with chief complaint of cough with nonpurulent sputum production and shortness of breath. Evaluation in the emergency room included an EKG which shows sinus tachycardia with occasional PACs, CBC showed a normal white blood cell count, chemistries were unremarkable, chest x-ray showed emphysematous changes but nothing acute. Patient was noted to require 2 L of O2 to maintain his pulse ox above 90%. Patient was given DuoNeb aerosol treatments and given IV Solu-Medrol, patient continued to feel dyspneic and was admitted to [place] [id number] for acute exacerbation of COPD. Patient was continued on IV corticosteroids and aggressive aerosol treatments, patient was monitored on telemetry and was noted to be tachycardic with occasional PACs, it was noted that the patient was actually on Coreg as an outpatient which was not ordered for the patient during his admission, this was ordered and dosage was increased. Patient was seen in consultation by pulmonary medicine. Patient's breathing improved, he did require 2 L of oxygen at the time of discharge while ambulating. This was set up for the patient as an outpatient as he was ambulatory as an outpatient. On 08/27/17, patient was seen and examined felt to be in stable condition for discharge home. He was also placed on Ativan for anxiety which appeared to improve the patient's medical status. Discharge Activity: Return to Normal Activity Weight Bearing Status: Full weight bearing Home Medications: Medications to take at Discharge Aspirin [Aspirin, Baby] 81 mg PO DAILY@0800 11/13/15 Budesonide/Formoterol 160/4.5 [Symbicort 160/4.5 Mcg Inhaler (SP)] 2 puff INHALATION BID 11/13/15 Doxazosin Mesylate [Cardura] 4 mg PO QHS 11/13/15 Finasteride [Proscar] 5 mg PO DAILY 11/13/15 Mirtazapine [Remeron] 15 mg PO QHS 11/13/15 Omeprazole [Prilosec] 20 mg PO DINNER 11/13/15 Theophylline [Kevin-Dur] 300 mg PO BID 11/13/15 prednisoLONE eye drops (1 mL) [Pred Forte eye drops (1 mL)] 1 drop RIGHT EYE 4X/DAY PRN PRN 11/13/15 Guaifenesin [Mucinex] 1,200 mg PO DAILY PRN 07/29/17 Albuterol Inhaler [Ventolin Hfa] 1 - 2 puff INHALATION Q4H PRN PRN #1 inhaler 08/26/17 Carvedilol [Coreg (Beta Neil)] 6.25 mg PO BID #60 tab 08/26/17 Ipratropium/Albuterol Sulfate [Duoneb] 3 ml INHALATION 4X/DAY #1 ampul.neb 08/26/17 Lorazepam [Ativan] 1 mg PO BID #60 tab 08/26/17 Prednisone 20 mg PO UD #10 tab 08/26/17 Following Prescrptions Were Given to Patient: Albuterol Inhaler [Ventolin Hfa] 1 - 2 puff INHALATION Q4H PRN PRN #1 inhaler PRN Reason: Sob &/Or Wheezing Prednisone 20 mg PO UD #10 tab Carvedilol [Coreg (Beta Neil)] 6.25 mg PO BID #60 tab Lorazepam [Ativan] 1 mg PO BID #60 tab Ipratropium/Albuterol Sulfate [Duoneb] 3 ml INHALATION 4X/DAY #1 ampul.neb Primary Care Physician: Dutch Lee III, MD [Primary Care Provider] - Please follow up with your Primary Care Physician in: in one week Please Follow Up With: Андрей Hernandes MD When: in 2 weeks Disposition: Home Minutes spent on discharge:: 35 Patient Condition:: Stable Medical Necessity - Tobacco Use Smoking Status: Former smoker Meaningful Use Info Meaningful Use Diagnoses (Choose all that apply): None applicable Code Visit Inpatient E&M: 86835 Disch Hosp
--- NOTE | 2017-08-27 16:48 | DS.PCM_ITS ---
Discharge Date and Diagnosis Date of Admission: 08/24/17 Date of Discharge: 08/26/17 - Primary Discharge Diagnosis #1 acute exacerbation of COPD #2 hypoxia secondary to acute exacerbation of COPD #3 sinus tachycardia secondary to chronic obstructive pulmonary disease and the effects of beta agonist aerosol treatments #4 anxiety disorder #5 coronary artery disease #6 type 2 diabetes - Secondary Discharge Diagnosis Chronic Problems Anxiety disorder (Chronic) COPD (chronic obstructive pulmonary disease) (Chronic) History of coronary angioplasty (Chronic) Type II diabetes mellitus (Chronic) H/O heart artery stent (Chronic) Hospital Course and Treatment Operations: None Procedures: 2-D Echocardiogram Summary of Care Provided: The patient is a 77 year old M who was seen in the emergency room at [facility] with chief complaint of cough with nonpurulent sputum production and shortness of breath. Evaluation in the emergency room included an EKG which shows sinus tachycardia with occasional PACs, CBC showed a normal white blood cell count, chemistries were unremarkable, chest x-ray showed emphysematous changes but nothing acute. Patient was noted to require 2 L of O2 to maintain his pulse ox above 90%. Patient was given DuoNeb aerosol treatments and given IV Solu-Medrol, patient continued to feel dyspneic and was admitted to [place] [address] for acute exacerbation of COPD. Patient was continued on IV corticosteroids and aggressive aerosol treatments, patient was monitored on telemetry and was noted to be tachycardic with occasional PACs, it was noted that the patient was actually on Coreg as an outpatient which was not ordered for the patient during his admission, this was ordered and dosage was increased. Patient was seen in consultation by pulmonary medicine. Patient's breathing improved, he did require 2 L of oxygen at the time of discharge while ambulating. This was set up for the patient as an outpatient as he was ambulatory as an outpatient. On 08/27/17, patient was seen and examined felt to be in stable condition for discharge home. He was also placed on Ativan for anxiety which appeared to improve the patient's medical status. Discharge Activity: Return to Normal Activity Weight Bearing Status: Full weight bearing Home Medications: Medications to take at Discharge Aspirin [Aspirin, Baby] 81 mg PO DAILY@0800 11/13/15 Budesonide/Formoterol 160/4.5 [Symbicort 160/4.5 Mcg Inhaler (SP)] 2 puff INHALATION BID 11/13/15 Doxazosin Mesylate [Cardura] 4 mg PO QHS 11/13/15 Finasteride [Proscar] 5 mg PO DAILY 11/13/15 Mirtazapine [Remeron] 15 mg PO QHS 11/13/15 Omeprazole [Prilosec] 20 mg PO DINNER 11/13/15 Theophylline [Kevin-Dur] 300 mg PO BID 11/13/15 prednisoLONE eye drops (1 mL) [Pred Forte eye drops (1 mL)] 1 drop RIGHT EYE 4X/ DAY PRN PRN 11/13/15 Guaifenesin [Mucinex] 1,200 mg PO DAILY PRN 07/29/17 Albuterol Inhaler [Ventolin Hfa] 1 - 2 puff INHALATION Q4H PRN PRN #1 inhaler Carvedilol [Coreg (Beta Neil)] 6.25 mg PO BID #60 tab 08/26/17 Ipratropium/Albuterol Sulfate [Duoneb] 3 ml INHALATION 4X/DAY #1 ampul.neb 08/26 Lorazepam [Ativan] 1 mg PO BID #60 tab 08/26/17 Prednisone 20 mg PO UD #10 tab 08/26/17 Following Prescrptions Were Given to Patient: Albuterol Inhaler [Ventolin Hfa] 1 - 2 puff INHALATION Q4H PRN PRN #1 inhaler PRN Reason: Sob &/Or Wheezing Prednisone 20 mg PO UD #10 tab Carvedilol [Coreg (Beta Neil)] 6.25 mg PO BID #60 tab Lorazepam [Ativan] 1 mg PO BID #60 tab Ipratropium/Albuterol Sulfate [Duoneb] 3 ml INHALATION 4X/DAY #1 ampul.neb Primary Care Physician: Dutch Lee III, MD [Primary Care Provider] - Please follow up with your Primary Care Physician in: in one week Please Follow Up With: Андрей Hernandes MD When: in 2 weeks Disposition: Home Minutes spent on discharge:: 35 Patient Condition:: Stable Medical Necessity - Tobacco Use Smoking Status: Former smoker Meaningful Use Info Meaningful Use Diagnoses (Choose all that apply): None applicable Code Visit Inpatient E&M: 78505 Disch Hosp
== END 2017-08-26 18:27 | disposition home or self-care (01) | DRG 192 ==
LOC: ED 20:07 → MS3 20:46
PROVIDERS: Physician Assistant; Admitting Provider Internal Medicine; Emergency Provider Emergency Medicine; Family Provider Family Medicine; PCP Family Medicine; Visit Provider Internal Medicine
DX: J44.1 Chronic obstructive pulmonary disease with (acute) exacerbation (principal); F41.9 Anxiety disorder, unspecified; I25.10 Atherosclerotic heart disease of native coronary artery without angina pectoris; E11.9 Type 2 diabetes mellitus without complications; Z95.5 Presence of coronary angioplasty implant and graft; Z85.118 Personal history of other malignant neoplasm of bronchus and lung; Z87.891 Personal history of nicotine dependence
CPT/HCPCS: 36415; 71046; 80048; 80053; 80198; 82962; 83036; 83880; 84484; 85025; 87633; 93005; 93306; 94640; 94667; 94668; 97802; 99285; J7030; Q9957; A4216; C8929

== ENCOUNTER → 2017-10-11 12:16 | Outpatient (CLI) | payer MEDICARE, SELFPAY ==
--- NOTE | 2017-10-11 12:23 | STEWCON_ITS ---
Version 2 Reason For Study: ASHD Stress Results Protocol: Dobutamine Maximum Predicted HR: 141 bpm Target HR: 120 bpm% Maximum Predicted HR: 100 % DurationHeart Rate Stage (mm:ss) (bpm) BPDos e Comment BASELINE 90 149/90 2CC DEFINITY STAGE 1 3:00 11 0 145/9610.001 CC DEFINITY STAGE 2 1:43 14 1 153/8620.001 CC DEFINITY RECOVERY 98 159/95 1CC DEFINITY Stress Duration: 4:43 mm:ss Maximum Stress HR: 141 bpm Baseline Echocardiogram Findings Stress Echo Wall motion Data Resting WMIntermediate WMStress WM Resting Wall Motion Wall Motion Stress No regional wall motion No regional wall motion abnormalities noted. abnormalities noted. Ejection Fraction 55 %. Ejection Fraction 65 %. EKG Data Baseline ECG demonstrates normal sinus rhythm with a rate of 95 beats per minute. Normal intervals are noted. The resting blood pressure was 149/90. The patient was titrated from 10 mcg to a maximum of 20 mcg of dobutamine during the stress. During dobutamine infusion, there were no ST or T wave changes noted to suggest ischemia. At peak infusion, upsloping ST changes only were noted, which did not meet the criteria for ischemia. The peak blood pressure was 177/90. No arrhythmias noted. Interpretation Summary Normal resting LV systolic function. Nonstenotic valves. With stress, the LV size decreased and all segments augmented normally. The LVEF increased from 55% to 65%. Negative for ischemia at 103% of MPHR and at 1 METS. No wall motion abnormalities are noted to suggest dobutamine-induced ischemia. No arrhythmias are noted. Test terminated due to achievement of target heart rate. Conclusion: Normal dobutamine stress echocardiogram.. Ordering Physician: Pepe Rubio Referring Physician: Pepe Rubio Performed By: Juliann Louise, LIONEL, RVT
== END ==
PROVIDERS: Family Provider Family Medicine; PCP Family Medicine; Visit Provider Internal Medicine Cardiovascular Disease
DX: I25.10 Atherosclerotic heart disease of native coronary artery without angina pectoris (principal); I10 Essential (primary) hypertension; R06.09 Other forms of dyspnea; Z13.6 Encounter for screening for cardiovascular disorders
CPT/HCPCS: 93017; 93350; J7030; Q9957; A4216; C8928

== ENCOUNTER 2018-03-11 17:46 | Inpatient (IN) | payer MEDICARE, SELFPAY ==
[2018-03-11] VITALS (12 sets, daily range): BP systolic 147–166; BP diastolic 77–91; PULSE 90–122; RESP 18–24; TEMP 36.9–37.4; O2SAT 94–99; BMI 27.1
--- NOTE | 2018-03-11 18:03 | EKG12_ITS ---
Test Reason : SOB Blood Pressure : / mmHG Vent. Rate : 110 BPM Atrial Rate : 110 BPM P-R Int : 168 ms QRS Dur : 094 ms QT Int : 340 ms P-R-T Axes : 087 085 080 degrees QTc Int : 460 ms Sinus tachycardia with occasional Premature ventricular complexes Otherwise normal ECG Confirmed by CORAZON STOUT, LIANG ([id number]), editor in chief LAURA WONG ([id number]) on 03/14/2018 2:04:43 PM Referred By: ISIAH Confirmed By:LIANG CHANDRA MD
[2018-03-11] MEDS: Ipratropium/Albuterol Sulfate 3 ML AMPUL.NEB INHALATION ×2 (18:25→23:07)
[2018-03-11] MEDS: Albuterol 2.5 MG/3 ML VIAL.NEB. INHALATION ×3 (18:32→19:10)
[2018-03-11 18:42] LABS: Anion Gap 8 (5-15); BUN 16 mg/dL (7-18); BUN/Creat Ratio 13.2 RATIO (10-20); Calcium,Total 8.9 mg/dL (8.5-10.1); Chloride 105 mmol/L (98-107); Creatinine, Serum 1.21 mg/dL (0.70-1.30); EST Glomerular Filtration Rate 61 mL/min (>60); Est Glom Filt Rate - Afr Amer 74 mL/min (>60); Estimated Creatinine Clearance 46.28 ml/min; Glucose 184 mg/dL (74-106); Potassium 3.9 mmol/L (3.5-5.1); Sodium Level 139 mmol/L (136-145)
[2018-03-11 19:00] LABS: Absolute Lymphocyte Count 1.17 X10^3/ul (0.83-4.51); Absolute Neutrophil Count 4.1 X10^3/uL (2.0-7.7); Basophil# 0.04 X10^3/uL; Basophil% 0.6 % (0-1); Eosinophil# 0.21 X10^3/uL; Eosinophils% 3.4 % (0-5); Hematocrit 38.7 % (40-54); Hemoglobin 12.9 g/dl (13.0-16.5); Lymphocyte # 1.17 X10^3/ul (4.0); Lymphocyte % 18.8 % (19-41); Mean Corp Hgb Conc 33.3 g/gl (32-36); Mean Corpuscular Hgb 28.7 pg (27.0-32.0); Mean Corpuscular Volume 86.2 fL (80-94); Monocyte# 0.74 X10^3/uL; Monocyte% 11.9 % (0-10); Neutrophil # 4.06 X10^3/uL (2.7-7.7); Platelet Count 243 K/mm3 (150-450); RBC Distribution Width CV 13.4 % (11.6-14.6); RBC Distribution Width SD 42.3 fl (35.1-43.9); Red Blood Count 4.49 M/mm3 (4.6-6.2); White Blood Count 6.2 K/mm3 (4.4-11.0)
[2018-03-11 19:01] LABS: POSITIVE COUNT NO; POSITIVE DIFFERENTIAL NO; POSITIVE MORPHOLOGY NO
--- NOTE | 2018-03-11 19:20 | RAD_ITS ---
STUDY: X-RAY CHEST REASON FOR EXAM: Male, 77 years old. Shortness of breath. History of lung surgery and COPD. TECHNIQUE: PA and lateral views of the chest. COMPARISON: PA and lateral chest x-ray August 24, 2017. FINDINGS: There is hyperinflation of the lungs consistent with chronic obstructive lung disease (COPD). There are stable postsurgical changes in the bilateral lung apices, as well as stable biapical emphysematous changes with some crowding of the vascular markings at the lung bases. No new infiltrate. There is no demonstrated pleural abnormality. Normal size heart. Normal mediastinum and cinthya. Normal visualized pulmonary arteries. Normal visualized aortic arch and descending thoracic aorta. There are stable degenerative changes of the visualized lower thoracic spine. There are stable old healed deformities of the lateral left fifth and sixth ribs. There is no demonstrated abnormality of the visualized soft tissue structures of the upper abdomen. RAD/Chest PA and Lateral IMPRESSION: Stable x-ray examination of the chest with findings of COPD and biapical postsurgical changes, as described. Electronically Signed: Ranulfo Gasca MD at 19:38 EST , Service support ,
[2018-03-11] MEDS: predniSONE 20 MG Tablet 60 MG PO (20:15)
--- NOTE | 2018-03-11 20:15 | HP.PCM_ITS ---
Problem List (1) COPD exacerbation Status: Acute (2) Anxiety disorder Status: Chronic (3) History of coronary angioplasty Status: Chronic (4) Type II diabetes mellitus Status: Chronic History of Present Illness Date of Admission: 03/11/18 Chief Complaint: SOB The patient is a 77 year old M with a PMH as below presenting with SOB which started this morning. He states that he has had a head cold, upper respiratory infection for the last 2 or 3 days and it moved into his chest this morning. When he woke up he was short of breath, during the day he felt better, and then at night he started feeling more short of breath again. He does have a pulse oximeter at home which she states was reading 98% on room air. He presented because he felt like he could not take a deep breath. He denies fevers, chills, lightheadedness, dizziness, chest pain. He did not see his PCP or call his PCP. On presentation to the ER he was satting in the mid 90s on room air but was placed on oxygen for comfort. Chest x-ray was negative for any acute pulmonary process. He is status post bilateral apical pneumonectomies. Past Medical History Past Medical History (Chronic Problems): Chronic Problems Anxiety disorder (Chronic) COPD (chronic obstructive pulmonary disease) (Chronic) History of coronary angioplasty (Chronic) Type II diabetes mellitus (Chronic) H/O heart artery stent (Chronic) Allergies gabapentin Allergy (Unknown, Verified 11/19/16 02:09) Unknown alprazolam [From Xanax] Allergy (Verified 11/09/16 17:54) breathing issues belladonna alkaloids Allergy (Verified 11/09/16 17:54) Unknown cephalexin Allergy (Verified 11/09/16 17:54) Unknown ciprofloxacin [From Cipro] Allergy (Verified 11/09/16 17:54) Unknown dicyclomine Allergy (Verified 11/09/16 17:54) Unknown diltiazem Allergy (Verified 11/09/16 17:54) Unknown ezetimibe Allergy (Verified 11/09/16 17:54) Unknown fluvastatin Allergy (Verified 11/09/16 17:54) Unknown metoprolol [From Toprol XL] Allergy (Verified 11/09/16 17:54) Unknown nitrofurantoin Allergy (Verified 11/09/16 17:54) Unknown phenobarbital Allergy (Verified 11/09/16 17:54) Unknown prochlorperazine [From Compazine] Allergy (Verified 11/09/16 17:54) Unknown simvastatin [From Zocor] Allergy (Verified 11/09/16 17:54) Unknown Bbmqfwa-Hvx-Cam Reductase Inhibitor Allergy (Verified 11/09/16 17:54) Unknown sulfamethoxazole [From Bactrim] Allergy (Verified 11/09/16 17:54) Unknown tamsulosin [From Flomax] Allergy (Verified 11/09/16 17:54) Unknown trimethoprim [From Bactrim] Allergy (Verified 11/09/16 17:54) Unknown Home Medications: Ambulatory Orders Medication Instructions Recorded Aspirin [Aspirin, Baby] 81 mg PO DAILY@0800 11/13/15 Budesonide/Formoterol 160/4.5 2 puff INHALATION BID 11/13/15 [Symbicort 160/4.5 Mcg Inhaler (SP)] Doxazosin Mesylate [Cardura] 4 mg PO QHS 11/13/15 Finasteride [Proscar] 5 mg PO DAILY 11/13/15 Mirtazapine [Remeron] 15 mg PO QHS 11/13/15 Omeprazole [Prilosec] 20 mg PO DAILY 11/13/15 Theophylline [Kevin-Dur] 300 mg PO BID 11/13/15 prednisoLONE eye drops (1 mL) 1 drop RIGHT EYE 4X/DAY PRN PRN 11/13/15 [Pred Forte eye drops (1 mL)] Guaifenesin [Mucinex] 1,200 mg PO BID PRN 07/29/17 Albuterol Inhaler [Ventolin Hfa] 1 - 2 puff INHALATION Q4H PRN PRN 08/26/17 #1 inhaler Lorazepam [Ativan] 1 mg PO BID #60 tab 08/26/17 Ipratropium/Albuterol Respimat 1 puff INHALATION BID PRN 03/11/18 [Combivent Respimat Inhal [place]] Ipratropium/Albuterol Sulfate 3 ml INHALATION 4X/DAY PRN 03/11/18 [Duoneb] Nitroglycerin [Nitrostat] 0.4 mg SUBLINGUAL Q5M PRN 03/11/18 Roflumilast [Daliresp] 500 mcg PO DAILY 12/07/18 Surgical History: - - lung reduction surgery and cancer removal.cath with stent 11-12 years ago. Cardiac stenting in 2001 Psychiatric History: Anxiety Smoking Status: Former smoker - *Family History Maternal History Items: Hypertension Paternal History Items: - - father was a smoker with copd Review of Systems Constitutional: Denies: Chills, Fever, Weight Change HEENT: Denies: Head Aches, Sinus Congestion, Sinus Drainage Cardiovascular: Denies: Chest Pain, Palpitations Respiratory: Reports: Shortness of Breath. Denies: Cough, Shortness of breath at rest, Sputum production Gastrointestinal: Denies: Abdominal Pain, Nausea, Vomiting Genitourinary: Denies: Dysuria Musculoskeletal: Denies: Joint Pain, Joint Tenderness Skin: Denies: Rash, Wounds Neurological: Denies: Numbness, Tingling, Focal weakness Psychiatric: Denies: Anxiety, Depression, Homicidal Ideations, Suicidal Ideations Hematologic/ Lymphatic: Denies: Easy Bruising, Easy Bleeding VTE Information - Inpt Only VTE Present on Admission: No - Physical Exam General: Alert, Oriented x3, Cooperative, No apparent distress HEENT: Atraumatic, PERRLA, EOMI, Normocephalic Oral: Moist Mucosa Neck: Supple, No JVD Lungs: Clear to auscultation, No rhonchi, No wheeze, No rales, - - very poor air movement Cardiovascular: Regular Rhythm, Normal S1, Normal S2, No murmurs, Tachycardic Abdomen: Soft, Non Tender, Non-Distended, No Hepato-splenomegaly Extremities: No edema, Capillary Refill Less than 3 Seconds Skin: No rashes, No breakdown Neurological: Neuro grossly intact, Sensory exam intact to light touch and pain Psych/Mental Status: Normal Affect, Appropriate Vital Signs Temp Pulse Resp BP Pulse Ox 98.8 F 121 H 22 H 166/83 H 96 03/11/18 17:56 03/11/18 19:44 03/11/18 19:44 03/11/18 19:44 03/11/18 19:44 Oxygen Flow Rate (L/min) 2 Oxygen Delivery Method Nasal Cannula Weight: 173 lb Body Mass Index (BMI) 27.1 Laboratory Tests Past 24 Hrs 03/11/18 03/11/18 18:15 18:15 WBC 6.2 RBC 4.49 L Hgb 12.9 L Hct 38.7 L MCV 86.2 MCH 28.7 MCHC 33.3 RDW 13.4 RDW Differential 42.3 Plt Count 243 MPV 10.0 Immature Gran % (Auto) 0.300 Neut % (Auto) 65.0 Lymph % (Auto) 18.8 L Coleman % (Auto) 11.9 H Eos % (Auto) 3.4 Baso % (Auto) 0.6 Absolute Neuts (auto) 4.1 Absolute Lymphs (auto) 1.17 Total Counted Not Reportable Sodium 139 Potassium 3.9 Chloride 105 Carbon Dioxide 26.0 Anion Gap 8 BUN 16 Creatinine 1.21 Estim Creat Clear Calc 46.28 Est GFR (MDRD) Af Amer 74 Est GFR (MDRD) Non-Af 61 BUN/Creatinine Ratio 13.2 Glucose 184 H Calcium 8.9 Troponin I < 0.015 Assessment/Plan All Active Problems COPD exacerbation (Acute) RSV (respiratory syncytial virus infection) (Resolved) COPD exacerbation (Acute) Bronchitis (Acute) 1. COPD exacerbation/tachycardia, possibly MAT - His tachy appears to be chronic during COPD exacerbations - Will check a theophylline level, if normal can resume taking his home dose - Solumedrol 40 mg IV TID, duoneb - No abx since he doesnt have a leukocytosis - C/w with his home medications where possible 2. Anxiety/Depression - c/w with ativan and remeron - stable 3. BPH - stable - c/w Proscar and cardura 4. GERD - stable - c/w home PPI DVT: Heparin/SCDs Code Visit Inpatient E&M: 57443 Init Hosp L3
--- NOTE | 2018-03-11 20:44 | ED.DCSUM_ITS ---
- ER Visit Summary Date of Service: 03/11/18 Chief Complaint: Shortness of breath History of Present Illness: The patient is a 77 M presenting for evaluation secondary to shortness of breath. Patient has an underlying history of COPD. Patient states that about 2 days ago he had an onset of a head cold associated with rhinorrhea and some drainage. He reports that today he feels that it went into his chest, and now he is having significant shortness of breath. He reports that he has a cough that is productive of brown sputum. He denies any presence of fevers. He does endorse a sore throat associated with this. He has had prior similar symptoms, but no recent hospital admissions. Physical Examination: Vital signs notable for heart rate of 118 respiratory rate of 23 pulse ox is 96% on the patient's home 3 L. No evidence of fever temperature 98.8. Well-nourished male visibly tachypneic but otherwise not physiologic distress. Moist mucous membranes. Heart was irregular and tachycardic. There is poor air movement in the lung arteaga bilaterally. Remainder of physical otherwise unremarkable. Test Results: EKG shows tachycardia with a rate of 110 with what I believe potentially to be multifocal atrial tachycardia. CBC, chemistry, troponin u nremarkable. Chest x-ray shows chronic changes no infiltrate Emergency Department Course and Treatment: Patient presented for evaluation secondary to what appears to be exacerbation of COPD. Patient's cardiac enzyme and EKG are unremarkable. Chest x-ray shows no evidence of infiltrate. Patient was given prednisone and a DuoNeb and 2 albuterol treatments with minimal improvement. I believe that he requires admission as he has a significantly low functional reserve and very poor air movement. I discussed this with the hospitalist. Disposition: Admission Impression: 1. COPD exacerbation This note was generated with [employer] dictation software. It may contain incorrect words, spelling, and punctuation that were not noted in review of the chart prior to signing ED Disposition - Plan for ED Patient: Chief Complaint: Shortness of Breath Referrals: Dutch Lee III, MD [Primary Care Provider] -
[2018-03-11 22:18] LABS: Theophylline (Aminophylline) 6.1 ug/mL (10.0-20.0)
[2018-03-11] MEDS: Budesonide Respules 0.5 MG/2 ML AMPUL.NEB. INHALATION (23:07)
[2018-03-11] MEDS: 0.9% NaCl Peripheral Flush Adult/Peds IV (23:22)
[2018-03-11] MEDS: Finasteride 5 MG Tablet PO (23:23)
[2018-03-11] MEDS: guaiFENesin 1,200 MG Tablet 1200 MG PO (23:23)
[2018-03-11] MEDS: LORazepam 1 MG Tablet PO (23:24)
[2018-03-11] MEDS: Mirtazapine 15 MG Tablet PO (23:24)
[2018-03-11] MEDS: Doxazosin 4 MG Tablet PO (23:24)
[2018-03-12] VITALS (10 sets, daily range): BP systolic 122–136; BP diastolic 74–82; PULSE 85–115; RESP 18–20; TEMP 36.4–36.7; O2SAT 95–98; BMI 27.0
[2018-03-12] MEDS: Ipratropium/Albuterol Sulfate 3 ML AMPUL.NEB INHALATION ×6 (03:39→22:38)
[2018-03-12] MEDS: 0.9% NaCl Peripheral Flush Adult/Peds IV ×3 (06:30→21:44)
--- NOTE | 2018-03-12 06:34 | NURSING ---
This RN was going to call pt's this morning to remind her to bring two of his home meds in for today (Theophylline & Roflumilast). Pt states his will not be awake at this time and is requesting she be called around 0800 or 0900. Also states his will not be in until probably sometime this evening when a family member can bring her. Will pass on to dayshift.
[2018-03-12] MEDS: Budesonide Respules 0.5 MG/2 ML AMPUL.NEB. INHALATION (07:09)
[2018-03-12 07:52] LABS: Absolute Lymphocyte Count 0.31 X10^3/ul (0.83-4.51); Absolute Neutrophil Count 3.9 X10^3/uL (2.0-7.7); Basophil# 0.01 X10^3/uL; Basophil% 0.2 % (0-1); Eosinophil# 0.01 X10^3/uL; Eosinophils% 0.2 % (0-5); Hematocrit 38.9 % (40-54); Lymphocyte # 0.31 X10^3/ul (4.0); Lymphocyte % 7.1 % (19-41); Mean Corp Hgb Conc 33.4 g/gl (32-36); Mean Corpuscular Hgb 29.1 pg (27.0-32.0); Monocyte# 0.09 X10^3/uL; Monocyte% 2.1 % (0-10); Neutrophil # 3.92 X10^3/uL (2.7-7.7); Neutrophil % 89.9 % (47-70); Platelet Count 232 K/mm3 (150-450); RBC Distribution Width CV 13.5 % (11.6-14.6); Red Blood Count 4.47 M/mm3 (4.6-6.2); White Blood Count 4.4 K/mm3 (4.4-11.0)
[2018-03-12 08:05] LABS: Differential Indicated SCAN CRITERIA MET; POSITIVE COUNT NO; POSITIVE DIFFERENTIAL YES; POSITIVE MORPHOLOGY NO
[2018-03-12 08:07] LABS: Anion Gap 10 (5-15); BUN 17 mg/dL (7-18); BUN/Creat Ratio 15.5 RATIO (10-20); Calcium,Total 8.9 mg/dL (8.5-10.1); Chloride 106 mmol/L (98-107); EST Glomerular Filtration Rate 69 mL/min (>60); Est Glom Filt Rate - Afr Amer 83 mL/min (>60); Glucose 204 mg/dL (74-106); Potassium 4.3 mmol/L (3.5-5.1); Sodium Level 140 mmol/L (136-145)
[2018-03-12] MEDS: Aspirin 81 MG TAB.CHEW PO (08:09)
[2018-03-12 08:46] LABS: Differential Comment SCANNED
[2018-03-12] MEDS: LORazepam 1 MG Tablet PO ×2 (09:42→21:36)
[2018-03-12] MEDS: Enoxaparin 40 MG/0.4 ML Syringe SC (09:42)
[2018-03-12] MEDS: Glucerna Shake 120 ML LIQUID PO ×2 (09:43→14:16)
--- NOTE | 2018-03-12 11:34 | CM.UR ---
See mold maker apprentice. Met face to face with patient. States we did send him home with oxygen last time due to his walking pulse ox would drop. States bdr discontinued the oxygen shortly after discharge. Patient denies any concerns or needs. Express that he was told to not drive anymore and his doesn't drive so they are going to have to start depending on others to take them places. Otherwise denies anticipating any further needs. Instructed that case management will remain available should needs arise. Verb understanding. Gianna Chairez RN, CCM.
[2018-03-12] MEDS: guaiFENesin 1,200 MG Tablet 1200 MG PO ×2 (12:16→21:36)
--- NOTE | 2018-03-12 14:06 | CASEMGMT ---
LW/POA in echart, SW printed and HI TEACHER will place in chart. CHRISTA Lyon, FACILITIES ENGINEERING MANAGER
--- NOTE | 2018-03-12 15:13 | PN_ITS ---
Subjective: Patient was seen and examined today, he was weaned off oxygen but is still having marked expiratory wheezes. Patient was placed back on his Kevin-dur which he obtained from his home today. I took the patient off his Pulmicort today because he is getting IV Solu-Medrol. - Physical Exam General: Alert, Oriented x3, Cooperative, No apparent distress HEENT: Atraumatic, PERRLA, EOMI, Normocephalic Oral: Moist Mucosa Neck: Supple, No Nuchal Rigidity, Trachea Midline, Thyroid Normal Size and Texture Lungs: No rhonchi, No rales, Diminished, Wheezes - Expiratory wheezes are noted bilaterally Cardiovascular: Regular rate, Regular Rhythm, Normal S1, Normal S2, No murmurs, No Ectopic Activity, PMI Normal, No rub noted, No Gallop Abdomen: Bowel Sounds Present, Soft, Non Tender, Non-Distended, No hernias noted Extremities: No clubbing, No cyanosis, No edema, Capillary Refill Less than 3 Seconds Skin: No rashes, No breakdown Musculoskeletal: No Tenderness to Palpation of Joints or Extremities Neurological: Cranial nerves II-XII grossly intact, Neuro grossly intact, Sensory exam intact to light touch and pain, Coordination normal Psych/Mental Status: Normal Affect, Appropriate, Alert and oriented to time, place, person, mood and affect Vital Signs Temp Pulse Resp BP Pulse Ox 97.5 F L 108 H 18 122/74 H 98 03/12/18 14:50 03/12/18 14:50 03/12/18 14:50 03/12/18 14:50 03/12/18 14:50 Oxygen Flow Rate (L/min) 2 Oxygen Delivery Method Room Air Weight: 71.6 kg Body Mass Index (BMI) 27.1 Intake and Output for Last 24 Hours 03/10/18 03/11/18 03/12/18 23:59 23:59 23:59 Intake Total 1270 / 1270 Balance 1270 / 1270 Laboratory Tests Past 24 Hrs 03/11/18 03/11/18 03/11/18 18:15 18:15 21:28 WBC 6.2 RBC 4.49 L Hgb 12.9 L Hct 38.7 L MCV 86.2 MCH 28.7 MCHC 33.3 RDW 13.4 RDW Differential 42.3 Plt Count 243 MPV 10.0 Immature Gran % (Auto) 0.300 Neut % (Auto) 65.0 Lymph % (Auto) 18.8 L [place] % (Auto) 11.9 H Eos % (Auto) 3.4 Baso % (Auto) 0.6 Absolute Neuts (auto) 4.1 Absolute Lymphs (auto) 1.17 Total Counted Not Reportable Differential Comment Sodium 139 Potassium 3.9 Chloride 105 Carbon Dioxide 26.0 Anion Gap 8 BUN 16 Creatinine 1.21 Estim Creat Clear Calc 46.28 Est GFR (MDRD) Af Amer 74 Est GFR (MDRD) Non-Af 61 BUN/Creatinine Ratio 13.2 Glucose 184 H Calcium 8.9 Troponin I < 0.015 Theophylline 6.1 L 03/12/18 03/12/18 07:10 07:10 WBC 4.4 RBC 4.47 L Hgb 13.0 Hct 38.9 L MCV 87.0 MCH 29.1 MCHC 33.4 RDW 13.5 RDW Differential 43.0 Plt Count 232 MPV 10.0 Immature Gran % (Auto) 0.500 Neut % (Auto) 89.9 H Lymph % (Auto) 7.1 L [place] % (Auto) 2.1 Eos % (Auto) 0.2 Baso % (Auto) 0.2 Absolute Neuts (auto) 3.9 Absolute Lymphs (auto) 0.31 L Total Counted Not Reportable Differential Comment SCANNED Sodium 140 Potassium 4.3 Chloride 106 Carbon Dioxide 24.0 Anion Gap 10 BUN 17 Creatinine 1.10 Estim Creat Clear Calc 45.60 Est GFR (MDRD) Af Amer 83 Est GFR (MDRD) Non-Af 69 BUN/Creatinine Ratio 15.5 Glucose 204 H Calcium 8.9 Troponin I Theophylline Medical Necessity - Tobacco Use Smoking Status: Former smoker Tobacco Use: Cigarettes Assessment/Plan All Active Problems COPD exacerbation (Acute) RSV (respiratory syncytial virus infection) (Resolved) COPD exacerbation (Acute) Bronchitis (Resolved) #1 acute exacerbation of COPD-continue aerosol treatments, IV Solu-Medrol, oral theophylline, and Mucinex. #2 GERD #3 BPH #4 coronary artery disease #5 chronic anxiety disorder Code Visit Inpatient E&M: 53037 Subs Hosp L2
[2018-03-12] MEDS: Pantoprazole Sodium 20 MG Tablet PO (17:18)
--- NOTE | 2018-03-12 21:19 | NURSING ---
Assisted pt back to bed from bathroom. He was SOB after ambulating to bathroom without oxygen. Pulse ox 98%. Extension tubing applied and pt instructed to use oxygen when he needs to get up next time.
[2018-03-12] MEDS: Finasteride 5 MG Tablet PO (21:37)
[2018-03-12] MEDS: Doxazosin 4 MG Tablet PO (21:37)
[2018-03-12] MEDS: Mirtazapine 15 MG Tablet PO (21:44)
[2018-03-13 02:30] VITALS: BP 142/68; PULSE 103; RESP 18; TEMP 36.5; O2SAT 100
[2018-03-13 03:45] VITALS: PULSE 104; RESP 20
[2018-03-13] MEDS: Ipratropium/Albuterol Sulfate 3 ML AMPUL.NEB INHALATION ×3 (03:45→10:38)
[2018-03-13] MEDS: 0.9% NaCl Peripheral Flush Adult/Peds IV (05:58)
[2018-03-13 06:48] VITALS: PULSE 102; RESP 20; O2SAT 98
[2018-03-13 08:30] VITALS: BP 130/70; PULSE 114; RESP 18; TEMP 36.4; O2SAT 96
[2018-03-13] MEDS: LORazepam 1 MG Tablet PO (09:55)
[2018-03-13] MEDS: Enoxaparin 40 MG/0.4 ML Syringe SC (09:55)
[2018-03-13] MEDS: Aspirin 81 MG TAB.CHEW PO (09:55)
[2018-03-13] MEDS: guaiFENesin 1,200 MG Tablet 1200 MG PO (10:03)
[2018-03-13 10:38] VITALS: PULSE 102; RESP 20
--- NOTE | 2018-03-13 11:53 | DCINST_ITS ---
You will use the following diet at home:: No restrictions Your food should be the consistency of: Regular Your liquids should be the consistency of: Regular/Thin Discharge Activity: Return to Normal Activity Weight Bearing Status: Full weight bearing Allergies/Adverse Reactions: Allergies gabapentin Allergy (Unknown, Verified 11/19/16 02:09) Unknown alprazolam [From Xanax] Allergy (Verified 11/09/16 17:54) breathing issues belladonna alkaloids Allergy (Verified 11/09/16 17:54) Unknown cephalexin Allergy (Verified 11/09/16 17:54) Unknown ciprofloxacin [From Cipro] Allergy (Verified 11/09/16 17:54) Unknown dicyclomine Allergy (Verified 11/09/16 17:54) Unknown diltiazem Allergy (Verified 11/09/16 17:54) Unknown ezetimibe Allergy (Verified 11/09/16 17:54) Unknown fluvastatin Allergy (Verified 11/09/16 17:54) Unknown metoprolol [From Toprol XL] Allergy (Verified 11/09/16 17:54) Unknown nitrofurantoin Allergy (Verified 11/09/16 17:54) Unknown phenobarbital Allergy (Verified 11/09/16 17:54) Unknown prochlorperazine [From Compazine] Allergy (Verified 11/09/16 17:54) Unknown simvastatin [From Zocor] Allergy (Verified 11/09/16 17:54) Unknown Blmfamp-Edw-Kpw Reductase Inhibitor Allergy (Verified 11/09/16 17:54) Unknown sulfamethoxazole [From Bactrim] Allergy (Verified 11/09/16 17:54) Unknown tamsulosin [From Flomax] Allergy (Verified 11/09/16 17:54) Unknown trimethoprim [From Bactrim] Allergy (Verified 11/09/16 17:54) Unknown Medications to take at Discharge Aspirin [Aspirin, Baby] 81 mg PO DAILY@0800 11/13/15 Budesonide/Formoterol 160/4.5 [Symbicort 160/4.5 Mcg Inhaler (SP)] 2 puff INHALATION BID 11/13/15 Doxazosin Mesylate [Cardura] 4 mg PO QHS 11/13/15 Finasteride [Proscar] 5 mg PO DAILY 11/13/15 Mirtazapine [Remeron] 15 mg PO QHS 11/13/15 Omeprazole [Prilosec] 20 mg PO DAILY 11/13/15 Theophylline [Kevin-Dur] 300 mg PO BID 11/13/15 prednisoLONE eye drops (1 mL) [Pred Forte eye drops (1 mL)] 1 drop RIGHT EYE 4X/DAY PRN PRN 11/13/15 Guaifenesin [Mucinex] 1,200 mg PO BID PRN 07/29/17 Albuterol Inhaler [Ventolin Hfa] 1 - 2 puff INHALATION Q4H PRN PRN #1 inhaler 08/26/17 Lorazepam [Ativan] 1 mg PO BID #60 tab 08/26/17 Ipratropium/Albuterol Sulfate [Duoneb] 3 ml INHALATION 4X/DAY PRN 03/11/18 Nitroglycerin [Nitrostat] 0.4 mg SUBLINGUAL Q5M PRN 03/11/18 Roflumilast [Daliresp] 500 mcg PO DAILY 03/11/18 predniSONE tablet 20 mg PO BID #30 tab 03/13/18 The following prescriptions were given: predniSONE tablet 20 mg PO BID #30 tab Primary Care Physician: Dutch Lee III, MD [Primary Care Provider] - Please follow up with your Primary Care Physician in: in 1-2 weeks Test Results: Test results from this visit will be discussed in further detail at your follow- up appointment, if applicable. Please Follow Up With: Андрей Hernandes MD When: this week
--- NOTE | 2018-03-13 18:23 | PCM.DC.SUM ---
Discharge Date and Diagnosis Date of Admission: 03/11/18 Date of Discharge: 03/13/18 - Primary Discharge Diagnosis #1 acute exacerbation of COPD- #2 GERD #3 BPH #4 coronary artery disease #5 chronic anxiety disorder - Secondary Discharge Diagnosis Chronic Problems Anxiety disorder (Chronic) COPD (chronic obstructive pulmonary disease) (Chronic) History of coronary angioplasty (Chronic) Type II diabetes mellitus (Chronic) H/O heart artery stent (Chronic) Hospital Course and Treatment Operations: None Procedures: None Summary of Care Provided: The patient is a 77 year old M who was seen in the emergency room at [facility] with complaints of shortness of breath. Patient had a long history of chronic obstructive pulmonary disease. Workup in the emergency room included an EKG which showed a tachycardia at a rate of 110, CBC, chemistry, and troponin were unremarkable, chest x-ray showed chronic changes but no infiltrate. Patient was admitted to [place] [address], placed on IV corticosteroids, and aggressive aerosol treatments. Patient's oxygen was weaned off-this is been placed on the patient in the emergency room for comfort but the patient was not hypoxic. On 03/13/18, patient was seen and examined: On examination he appeared in good health and spirits. Vital signs as documented. Skin warm and dry and without overt rashes. Neck without JVD. Lungs clear, breath sounds were distant bilaterally. Heart exam notable for regular rhythm, normal sounds and absence of murmurs, rubs or gallops. Abdomen unremarkable and without evidence of organomegaly, masses, or abdominal aortic enlargement. Extremities nonedematous. Neuro: Cranial nerves II through XII are grossly intact, no focal motor deficits were noted. Psych-patient is alert and oriented x3, he does not appear to be depressed. On 03/13/18, patient was seen and examined discharged home in stable condition. - Physical Exam Vital Signs Temp Pulse Resp BP Pulse Ox 97.5 F L 102 H 20 H 130/70 H 96 03/13/18 08:30 03/13/18 10:38 03/13/18 10:38 03/13/18 08:30 03/13/18 08:30 Oxygen Flow Rate (L/min) 2 Oxygen Delivery Method Room Air Weight: 71.6 kg Body Mass Index (BMI) 27.1 Intake and Output for Last 24 Hours 03/11/18 03/12/18 03/13/18 23:59 23:59 23:59 Intake Total 2119 1360 / 1360 Output Total 400 / 400 Balance 2119 960 / 960 Discharge Activity: Return to Normal Activity Weight Bearing Status: Full weight bearing Home Medications: Medications to take at Discharge Aspirin [Aspirin, Baby] 81 mg PO DAILY@0800 11/13/15 Budesonide/Formoterol 160/4.5 [Symbicort 160/4.5 Mcg Inhaler (SP)] 2 puff INHALATION BID 11/13/15 Doxazosin Mesylate [Cardura] 4 mg PO QHS 11/13/15 Finasteride [Proscar] 5 mg PO DAILY 11/13/15 Mirtazapine [Remeron] 15 mg PO QHS 11/13/15 Omeprazole [Prilosec] 20 mg PO DAILY 11/13/15 Theophylline [Kevin-Dur] 300 mg PO BID 11/13/15 prednisoLONE eye drops (1 mL) [Pred Forte eye drops (1 mL)] 1 drop RIGHT EYE 4X/DAY PRN PRN 11/13/15 Guaifenesin [Mucinex] 1,200 mg PO BID PRN 07/29/17 Albuterol Inhaler [Ventolin Hfa] 1 - 2 puff INHALATION Q4H PRN PRN #1 inhaler 08/26/17 Lorazepam [Ativan] 1 mg PO BID #60 tab 08/26/17 Ipratropium/Albuterol Sulfate [Duoneb] 3 ml INHALATION 4X/DAY PRN 03/11/18 Nitroglycerin [Nitrostat] 0.4 mg SUBLINGUAL Q5M PRN 03/11/18 Roflumilast [Daliresp] 500 mcg PO DAILY 03/11/18 predniSONE tablet 20 mg PO BID #30 tab 03/13/18 Following Prescrptions Were Given to Patient: predniSONE tablet 20 mg PO BID #30 tab Primary Care Physician: Dutch Lee III, MD [Primary Care Provider] - Please follow up with your Primary Care Physician in: in 1-2 weeks Please Follow Up With: Андрей Hernandes MD When: this week Disposition: Home Minutes spent on discharge:: 32 Patient Condition:: Stable Medical Necessity - Tobacco Use Smoking Status: Former smoker Tobacco Use: Cigarettes Meaningful Use Info Meaningful Use Diagnoses (Choose all that apply): None applicable Code Visit Inpatient E&M: 25796 Disch Hosp
--- NOTE | 2018-03-13 18:27 | DS.PCM_ITS ---
Discharge Date and Diagnosis Date of Admission: 03/11/18 Date of Discharge: 03/13/18 - Primary Discharge Diagnosis #1 acute exacerbation of COPD- #2 GERD #3 BPH #4 coronary artery disease #5 chronic anxiety disorder - Secondary Discharge Diagnosis Chronic Problems Anxiety disorder (Chronic) COPD (chronic obstructive pulmonary disease) (Chronic) History of coronary angioplasty (Chronic) Type II diabetes mellitus (Chronic) H/O heart artery stent (Chronic) Hospital Course and Treatment Operations: None Procedures: None Summary of Care Provided: The patient is a 77 year old M who was seen in the emergency room at [facility] with complaints of shortness of breath. Patient had a long history of chronic obstructive pulmonary disease. Workup in the emergency room included an EKG which showed a tachycardia at a rate of 110, CBC, chemistry, and troponin were unremarkable, chest x-ray showed chronic changes but no infiltrate . Patient was admitted to [place] [address], placed on IV corticosteroids, and aggressive aerosol treatments. Patient's oxygen was weaned off-this is been placed on the patient in the emergency room for comfort but the patient was not hypoxic. On 03/13/18, patient was seen and examined: On examination he appeared in good health and spirits. Vital signs as documented. Skin warm and dry and without overt rashes. Neck without JVD. Lungs clear, breath sounds were distant bilaterally. Heart exam notable for regular rhythm, normal sounds and absence of murmurs, rubs or gallops. Abdomen unremarkable and without evidence of organomegaly, masses, or abdominal aortic enlargement. Extremities nonedematous. Neuro: Cranial nerves II through XII are grossly intact, no focal motor deficits were noted. Psych-patient is alert and oriented x3, he does not appear to be depressed. On 03/13/18, patient was seen and examined discharged home in stable condition. - Physical Exam Vital Signs Temp Pulse Resp BP Pulse Ox 97.5 F L 102 H 20 H 130/70 H 96 03/13/18 08:30 03/13/18 10:38 03/13/18 10:38 03/13/18 08:30 03/13/18 08:30 Oxygen Flow Rate (L/min) 2 Oxygen Delivery Method Room Air Weight: 71.6 kg Body Mass Index (BMI) 27.1 Intake and Output for Last 24 Hours 03/11/18 03/12/18 03/13/18 23:59 23:59 23:59 Intake Total 2119 1360 / 1360 Output Total 400 / 400 Balance 2119 960 / 960 Discharge Activity: Return to Normal Activity Weight Bearing Status: Full weight bearing Home Medications: Medications to take at Discharge Aspirin [Aspirin, Baby] 81 mg PO DAILY@0800 11/13/15 Budesonide/Formoterol 160/4.5 [Symbicort 160/4.5 Mcg Inhaler (SP)] 2 puff INHALATION BID 11/13/15 Doxazosin Mesylate [Cardura] 4 mg PO QHS 11/13/15 Finasteride [Proscar] 5 mg PO DAILY 11/13/15 Mirtazapine [Remeron] 15 mg PO QHS 11/13/15 Omeprazole [Prilosec] 20 mg PO DAILY 11/13/15 Theophylline [Kevin-Dur] 300 mg PO BID 11/13/15 prednisoLONE eye drops (1 mL) [Pred Forte eye drops (1 mL)] 1 drop RIGHT EYE 4X/DAY PRN PRN 11/13/15 Guaifenesin [Mucinex] 1,200 mg PO BID PRN 07/29/17 Albuterol Inhaler [Ventolin Hfa] 1 - 2 puff INHALATION Q4H PRN PRN #1 inhaler 08/26/17 Lorazepam [Ativan] 1 mg PO BID #60 tab 08/26/17 Ipratropium/Albuterol Sulfate [Duoneb] 3 ml INHALATION 4X/DAY PRN 03/11/18 Nitroglycerin [Nitrostat] 0.4 mg SUBLINGUAL Q5M PRN 03/11/18 Roflumilast [Daliresp] 500 mcg PO DAILY 03/11/18 predniSONE tablet 20 mg PO BID #30 tab 03/13/18 Following Prescrptions Were Given to Patient: predniSONE tablet 20 mg PO BID #30 tab Primary Care Physician: Dutch Lee III, MD [Primary Care Provider] - Please follow up with your Primary Care Physician in: in 1-2 weeks Please Follow Up With: Андрей Hernandes MD When: this week Disposition: Home Minutes spent on discharge:: 32 Patient Condition:: Stable Medical Necessity - Tobacco Use Smoking Status: Former smoker Tobacco Use: Cigarettes Meaningful Use Info Meaningful Use Diagnoses (Choose all that apply): None applicable Code Visit Inpatient E&M: 40620 Disch Hosp
--- NOTE | 2018-03-14 16:12 | CASEMGMT ---
SOFIA PERSON Discharge Follow-up Phone Call: CHU: Minal Strata: 3 Call Date: 03/14/18 Discharge Date: 03/13/18 Time of Call: 1610 Duration: 2 min Admitting Diagnosis: COPD RN RAZA completed follow-up phone call after recent hospitalization. Patient states that he is doing well, no questions regarding discharge instructions. Patient was able to pickup prescriptions without any issues. PCP's office to call back with follow-up appt.
== END 2018-03-13 13:25 | disposition home or self-care (01) | DRG 192 ==
LOC: ED 18:42 → MS3 20:56
PROVIDERS: Admitting Provider Family Medicine; Emergency Provider Emergency Medicine; Family Provider Family Medicine; PCP Family Medicine; Visit Provider Internal Medicine
DX: J44.1 Chronic obstructive pulmonary disease with (acute) exacerbation (principal); E11.9 Type 2 diabetes mellitus without complications; N40.0 Benign prostatic hyperplasia without lower urinary tract symptoms; K21.9 Gastro-esophageal reflux disease without esophagitis; I25.10 Atherosclerotic heart disease of native coronary artery without angina pectoris; F41.9 Anxiety disorder, unspecified; Z87.891 Personal history of nicotine dependence; Z95.5 Presence of coronary angioplasty implant and graft; Z79.899 Other long term (current) drug therapy
CPT/HCPCS: 36415; 71046; 80048; 80198; 84484; 85025; 93005; 94640; 97162; 97166; 97530; 97802; 99283; A4216

== ENCOUNTER → 2018-03-28 07:10 | Outpatient (CLI) | payer MEDICARE, SELFPAY ==
[2018-03-11 21:20] VITALS: BMI 27.1
== END ==
PROVIDERS: Family Provider Family Medicine; PCP Family Medicine; Referring Provider Internal Medicine Pulmonary Disease; Visit Provider Internal Medicine Pulmonary Disease
DX: J44.9 Chronic obstructive pulmonary disease, unspecified (principal); Z79.899 Other long term (current) drug therapy
CPT/HCPCS: 36415

== ENCOUNTER 2018-04-12 21:09 | Inpatient (IN) | payer MEDICARE, BC, SELFPAY ==
[2018-03-11 21:20] VITALS: BMI 27.1
[2018-04-12 21:10] VITALS: BP 165/98; PULSE 110; RESP 24; TEMP 36.7; O2SAT 96; BMI 27.4
[2018-04-12 21:16] VITALS: PULSE 102; RESP 23; O2SAT 96
[2018-04-12 21:19] VITALS: BP 135/82; PULSE 100; RESP 19; TEMP 36.7; O2SAT 97
--- NOTE | 2018-04-12 21:36 | EKG12_ITS ---
Test Reason : SOB Blood Pressure : / mmHG Vent. Rate : 101 BPM Atrial Rate : 101 BPM P-R Int : 130 ms QRS Dur : 090 ms QT Int : 342 ms P-R-T Axes : 088 081 080 degrees QTc Int : 443 ms Sinus tachycardia with Premature atrial complexes Otherwise normal ECG Confirmed by CORAZON STOUT, LIANG ([id number]), manager editorial LAURA WONG ([id number]) on 04/18/2018 9:51:39 AM Referred By: Андрей Hernandes Confirmed By:LIANG CHANDRA MD
[2018-04-12 21:47] VITALS: PULSE 110; RESP 20
[2018-04-12] MEDS: Ipratropium/Albuterol Sulfate 3 ML AMPUL.NEB INHALATION (21:47)
[2018-04-12] MEDS: MethylPREDNISolone 125 MG/2 ML Vial IV (21:59)
[2018-04-12 22:01] LABS: Absolute Lymphocyte Count 0.43 X10^3/ul (0.83-4.51); Absolute Neutrophil Count 3.2 X10^3/uL (2.0-7.7); Basophil# 0.01 X10^3/uL; Basophil% 0.3 % (0-1); Eosinophil# 0.02 X10^3/uL; Eosinophils% 0.5 % (0-5); Hematocrit 38.1 % (40-54); Hemoglobin 12.6 g/dl (13.0-16.5); Lymphocyte # 0.43 X10^3/ul (4.0); Lymphocyte % 11.1 % (19-41); Mean Corp Hgb Conc 33.1 g/gl (32-36); Mean Corpuscular Volume 87.8 fL (80-94); Mean Platelet Vol. 10.2 fl (6.2-12.0); Monocyte# 0.14 X10^3/uL; Monocyte% 3.6 % (0-10); Neutrophil # 3.24 X10^3/uL (2.7-7.7); Neutrophil % 83.7 % (47-70); Platelet Count 200 K/mm3 (150-450); RBC Distribution Width SD 45.4 fl (35.1-43.9); Red Blood Count 4.34 M/mm3 (4.6-6.2); White Blood Count 3.9 K/mm3 (4.4-11.0)
[2018-04-12 22:03] LABS: Differential Indicated SCAN CRITERIA MET; POSITIVE COUNT NO; POSITIVE DIFFERENTIAL YES; POSITIVE MORPHOLOGY NO
[2018-04-12 22:05] LABS: Anion Gap 9 (5-15); BUN 12 mg/dL (7-18); BUN/Creat Ratio 10.5 RATIO (10-20); Calcium,Total 8.7 mg/dL (8.5-10.1); Chloride 110 mmol/L (98-107); Creatinine, Serum 1.14 mg/dL (0.70-1.30); EST Glomerular Filtration Rate 66 mL/min (>60); Est Glom Filt Rate - Afr Amer 80 mL/min (>60); Estimated Creatinine Clearance 46.64 ml/min; Glucose 181 mg/dL (74-106); Potassium 4.1 mmol/L (3.5-5.1); Sodium Level 142 mmol/L (136-145)
--- NOTE | 2018-04-12 22:05 | RAD_ITS ---
STUDY: X-RAY CHEST REASON FOR EXAM: Male, 78 years old. Shortness of breath. History of lung cancer with bilateral lobectomies. TECHNIQUE: Frontal and lateral views of the chest COMPARISON: 03/11/2018 FINDINGS: There are stable emphysematous changes noted in the lungs with biapical bulla and scarring. There are postsurgical changes noted in both lungs. There are no focal infiltrates. There are no pleural effusions. There is no pneumothorax. The heart is normal in size. The visualized osseous structures are within normal limits. RAD/Chest PA and Lateral IMPRESSION: No acute thoracic pathology. Electronically Signed: Flaco Webb, at 22:19 EST Tel , Service support ,
[2018-04-12 22:29] LABS: Differential Comment SCANNED
[2018-04-12 22:48] VITALS: BP 163/84; PULSE 101; RESP 20; TEMP 36.8; O2SAT 95
[2018-04-12 23:47] VITALS: PULSE 112; RESP 20
[2018-04-12] MEDS: Albuterol 2.5 MG/3 ML VIAL.NEB. INHALATION ×2 (23:47)
[2018-04-13] VITALS (23 sets, daily range): BP systolic 120–152; BP diastolic 70–90; PULSE 86–120; RESP 17–24; TEMP 36.4–36.9; O2SAT 95–97; BMI 26.2; BMI 26.3
--- NOTE | 2018-04-13 00:32 | ED.DCSUM_ITS ---
- ER Visit Summary Date of Service: 04/13/18 Chief Complaint: Shortness of breath History of Present Illness: The patient is a 78 M who presents with shortness of breath that began today while at rest. Patient states his breathing is worse with any exertion. Patient was given an albuterol aerosol earlier today which seemed to help somewhat. Patient admits to a slight cough. Patient states he has a history of COPD and states this feels similar to that. Patient states he feels like he just cannot get enough oxygen. Patient denies any chest pain. Patient denies any fevers or chills. Patient denies any sputum production. Patient denies any nausea or vomiting. Physical Examination: Vital signs showed a mild tachycardia of 110 and tachypnea of 24. Patient is afebrile. Patient is in no acute distress. Oral mucosa is pink and moist. Neck is supple. Trachea is midline. There is no JVD noted. Heart was regular and slightly tachycardic. Lungs showed diffuse expiratory wheezing. Abdomen is soft and nontender. Cranial nerves II through XII are intact. There are no focal motor or sensory deficits noted. The remaining physical exam is within normal limits. Test Results: EKG showed sinus tachycardia with a rate of 101. There are no acute ST or T wave changes. There is no acute change compared to previous EKG dated 03/11/2018. CBC showed a white blood cell count 3.9. Hemoglobin was stable at 12.6. PA and lateral chest x-ray does not show any acute cardiopulmonary process. Emergency Department Course and Treatment: Patient was given a DuoNeb aerosol initially and was given 125 mg of Solu-Medrol initially. Patient still felt tight and wheezing. Patient was given 2 more albuterol aerosols here. His wheezing is improved however he still feels like he cannot catch enough oxygen and he still feels short of breath. Case was discussed with Dr. Calderón. He will admit the patient for observation. Disposition: Admit to hospital Impression: COPD exacerbation This note was generated with [employer] dictation software. It may contain incorrect words, spelling, and punctuation that were not noted in review of the chart prior to signing ED Disposition - Plan for ED Patient: Chief Complaint: Shortness of Breath Diagnosis: COPD exacerbation, COPD (chronic obstructive pulmonary disease) Referrals: Dutch Lee III, MD [Primary Care Provider] -
--- NOTE | 2018-04-13 00:39 | HP.PCM_ITS ---
Problem List (1) COPD exacerbation Status: Acute History of Present Illness Date of Admission: 04/13/18 Chief Complaint: shortness of breath The patient is a 78 year old M with a significant history of bilateral lung reduction; lung cancer status post surgery; former smoker; CAD status post stent; COPD; and asthma who presented to the emergency department because of shortness of breath at rest on the same day of his presentation. Shortness of breath increases with exertion. His symptoms were progressively worsening. Associated with his symptoms is productive cough of thick clear sputum. Further he reports wheezing. He tried home inhalers without any real relief so he proceeded to the emergency department. The Emergency department Doctor reported that patient was wheezing while in the emergency department. Patient received Solu-Medrol and breathing treatment at the emergency department . As stated above the above patient had bilateral lung reduction because of COPD. Patient reports that biopsy of his lungs after the bilateral lung reduction showed cancer in his left lung for which reason he had further resection of his left lung. Past Medical History Past Medical History (Chronic Problems): Chronic Problems Anxiety disorder (Chronic) COPD (chronic obstructive pulmonary disease) (Chronic) History of coronary angioplasty (Chronic) Type II diabetes mellitus (Chronic) H/O heart artery stent (Chronic) Allergies gabapentin Allergy (Unknown, Verified 04/12/18 21:15) Unknown alprazolam [From Xanax] Allergy (Verified 04/12/18 21:15) breathing issues belladonna alkaloids Allergy (Verified 04/12/18 21:15) Unknown cephalexin Allergy (Verified 04/12/18 21:15) Unknown ciprofloxacin [From Cipro] Allergy (Verified 04/12/18 21:15) Unknown dicyclomine Allergy (Verified 04/12/18 21:15) Unknown diltiazem Allergy (Verified 04/12/18 21:15) Unknown ezetimibe Allergy (Verified 04/12/18 21:15) Unknown fluvastatin Allergy (Verified 04/12/18 21:15) Unknown metoprolol [From Toprol XL] Allergy (Verified 04/12/18 21:15) Unknown nitrofurantoin Allergy (Verified 04/12/18 21:15) Unknown phenobarbital Allergy (Verified 04/12/18 21:15) Unknown prochlorperazine [From Compazine] Allergy (Verified 04/12/18 21:15) Unknown simvastatin [From Zocor] Allergy (Verified 04/12/18 21:15) Unknown Gmpxari-Lua-Qpz Reductase Inhibitor Allergy (Verified 04/12/18 21:15) Unknown sulfamethoxazole [From Bactrim] Allergy (Verified 04/12/18 21:15) Unknown tamsulosin [From Flomax] Allergy (Verified 04/12/18 21:15) Unknown trimethoprim [From Bactrim] Allergy (Verified 04/12/18 21:15) Unknown Home Medications: Ambulatory Orders Medication Instructions Recorded Aspirin [Aspirin, Baby] 81 mg PO DAILY@0800 11/13/15 Budesonide/Formoterol 160/4.5 2 puff INHALATION BID 11/13/15 [Symbicort 160/4.5 Mcg Inhaler (SP)] Doxazosin Mesylate [Cardura] 4 mg PO QHS 11/13/15 Finasteride [Proscar] 5 mg PO DAILY 11/13/15 Mirtazapine [Remeron] 15 mg PO QHS 11/13/15 Omeprazole [Prilosec] 20 mg PO DAILY 11/13/15 Theophylline [Kevin-Dur] 300 mg PO BID 11/13/15 prednisoLONE eye drops (1 mL) 1 drop RIGHT EYE 4X/DAY PRN PRN 11/13/15 [Pred Forte eye drops (1 mL)] Guaifenesin [Mucinex] 1,200 mg PO BID PRN 07/29/17 Albuterol Inhaler [Ventolin Hfa] 1 - 2 puff INHALATION Q4H PRN PRN 08/26/17 #1 inhaler Lorazepam [Ativan] 1 mg PO BID #60 tab 08/26/17 Ipratropium/Albuterol Sulfate 3 ml INHALATION 4X/DAY PRN 03/11/18 [Duoneb] Nitroglycerin [Nitrostat] 0.4 mg SUBLINGUAL Q5M PRN 03/11/18 Roflumilast [Daliresp] 500 mcg PO DAILY 03/11/18 predniSONE tablet 20 mg PO BID #30 tab 03/13/18 Surgical History: - - lung reduction surgery and cancer removal.cath with stent 11-12 years ago. Cardiac stenting in 2001 Psychiatric History: Anxiety Lives: Spouse/ Significant Other Smoking Status: Former smoker - *Family History Maternal History Items: Hypertension Paternal History Items: - - father was a smoker with copd Review of Systems Constitutional: Denies: Chills, Fever, Weight Change HEENT: Denies: Head Aches, Sinus Congestion, Sinus Drainage Cardiovascular: Denies: Chest Pain, Palpitations Respiratory: Reports: Cough, Shortness of breath at rest, Sputum production, Wheezing Gastrointestinal: Denies: Abdominal Pain, Nausea, Vomiting Genitourinary: Denies: Dysuria Musculoskeletal: Denies: Joint Pain, Joint Tenderness Skin: Denies: Rash, Wounds Neurological: Denies: Numbness, Tingling, Focal weakness Psychiatric: Denies: Anxiety, Depression, Homicidal Ideations, Suicidal Ideations Hematologic/ Lymphatic: Denies: Easy Bruising, Easy Bleeding VTE Information - Inpt Only VTE Present on Admission: No VTE Mechan Device Prophylaxis: None VTE Pharm Prophylaxis ordered?: Yes Patient Problems: Active and Suspected Problems COPD exacerbation (Acute) - Physical Exam General: Alert, Oriented x3, Cooperative HEENT: Atraumatic, PERRLA, EOMI, Normocephalic Neck: Supple, No JVD, Negative Carotid Bruits Lungs: Normal air movement, Diminished, Tachypneic Cardiovascular: Regular rate, No murmurs, Tachycardic Abdomen: Bowel Sounds Present, Soft, Non Tender Extremities: No edema, Capillary Refill Less than 3 Seconds Skin: No rashes, No breakdown Musculoskeletal: No Tenderness to Palpation of Joints or Extremities Neurological: Neuro grossly intact Psych/Mental Status: Normal Affect, Appropriate Vital Signs Temp Pulse Resp BP Pulse Ox 98.4 F 106 H 23 H 150/90 H 95 04/13/18 00:19 04/13/18 00:19 04/13/18 00:19 04/13/18 00:19 04/13/18 00:19 Oxygen Delivery Method Room Air Weight: 77.111 kg Body Mass Index (BMI) 27.4 Laboratory Tests Past 24 Hrs 04/12/18 04/12/18 21:17 21:17 WBC 3.9 L RBC 4.34 L Hgb 12.6 L Hct 38.1 L MCV 87.8 MCH 29.0 MCHC 33.1 RDW 14.0 RDW Differential 45.4 H Plt Count 200 MPV 10.2 Immature Gran % (Auto) 0.800 Neut % (Auto) 83.7 H Lymph % (Auto) 11.1 L [place] % (Auto) 3.6 Eos % (Auto) 0.5 Baso % (Auto) 0.3 Absolute Neuts (auto) 3.2 Absolute Lymphs (auto) 0.43 L Total Counted Not Reportable Differential Comment SCANNED Diff Path Review May foll Sodium 142 Potassium 4.1 Chloride 110 H Carbon Dioxide 23.0 Anion Gap 9 BUN 12 Creatinine 1.14 Estim Creat Clear Calc 46.64 Est GFR (MDRD) Af Amer 80 Est GFR (MDRD) Non-Af 66 BUN/Creatinine Ratio 10.5 Glucose 181 H Calcium 8.7 Assessment/Plan All Active Problems COPD exacerbation (Acute) RSV (respiratory syncytial virus infection) (Resolved) COPD exacerbation (Acute) Bronchitis (Resolved) The patient is a 78 year old M with a significant history of bilateral lung reduction; lung cancer status post surgery; former smoker; CAD status post stent; COPD; and asthma who presented to the emergency department because of shortness of breath; wheezing; and productive cough consistent with likely exacerbation of his underlying COPD and asthma. Acute exacerbation of COPD with asthma. CXR independently reviewed confirms bilateral pulmonary scar from previous surgery. No acute cardiopulmonary disease. EKG independently reviewed confirms sinus bradycardia with PACs Scheduled DuoNeb Albuterol as needed Received Solu-Medrol in the emergency department. Telemetry continued. Oxygen as needed to keep oxygen saturation more than 90%. Because of mild leukopenia we will repeat CBC in a.m. Incentive spirometer and acapella ordered. Mucinex ordered. Influenza screen and comprehensive respiratory pathogen panel ordered. Elevated blood pressure without diagnosis of hypertension. On admission his blood pressure was above goal. Trend blood pressures. Hydralazine as needed for systolic blood pressure more than 160. CAD status post stent Aspirin continued. DVT prophylaxis Subcutaneous heparin ordered. Code Visit OBSV E&M: 55868 Initial observation care L3
[2018-04-13] MEDS: guaiFENesin 1,200 MG Tablet 1200 MG PO ×3 (02:22→22:08)
[2018-04-13] MEDS: Ipratropium/Albuterol Sulfate 3 ML AMPUL.NEB INHALATION ×5 (03:39→18:58)
--- NOTE | 2018-04-13 03:45 | CPS ---
pt refusing pep therapy
[2018-04-13] MEDS: 0.9% NaCl Peripheral Flush Adult/Peds IV ×5 (05:29→22:11)
[2018-04-13 07:01] LABS: Absolute Lymphocyte Count 0.22 X10^3/ul (0.83-4.51); Absolute Neutrophil Count 2.8 X10^3/uL (2.0-7.7); Hematocrit 39.5 % (40-54); Hemoglobin 13.2 g/dl (13.0-16.5); Lymphocyte # 0.22 X10^3/ul (4.0); Lymphocyte % 7.2 % (19-41); Mean Corp Hgb Conc 33.4 g/gl (32-36); Mean Corpuscular Hgb 29.3 pg (27.0-32.0); Mean Corpuscular Volume 87.8 fL (80-94); Mean Platelet Vol. 10.1 fl (6.2-12.0); Monocyte# 0.01 X10^3/uL; Monocyte% 0.3 % (0-10); Neutrophil # 2.82 X10^3/uL (2.7-7.7); Neutrophil % 91.8 % (47-70); Platelet Count 204 K/mm3 (150-450); RBC Distribution Width SD 44.8 fl (35.1-43.9); White Blood Count 3.1 K/mm3 (4.4-11.0)
[2018-04-13 07:13] LABS: Differential Indicated SCAN CRITERIA MET; POSITIVE COUNT NO; POSITIVE DIFFERENTIAL YES; POSITIVE MORPHOLOGY NO
--- NOTE | 2018-04-13 07:46 | CASEMGMT ---
Patient has a healthcare poa and healthcare lw on file. Jelena DAMON CUSTOMER SERVICE REPRESENTATIVE TELLER
[2018-04-13] MEDS: Aspirin 81 MG TAB.CHEW PO (08:44)
[2018-04-13] MEDS: Enoxaparin 40 MG/0.4 ML Syringe SC (08:44)
[2018-04-13] MEDS: LORazepam 1 MG Tablet PO ×2 (11:33→22:08)
[2018-04-13] MEDS: Finasteride 5 MG Tablet PO (12:51)
[2018-04-13] MEDS: Pantoprazole Sodium 20 MG Tablet PO (12:52)
[2018-04-13] MEDS: Albuterol 2.5 MG/3 ML VIAL.NEB. INHALATION ×2 (14:01→22:01)
[2018-04-13 14:29] LABS: Pathologist Review Reviewed
[2018-04-13 14:32] LABS: Pathologist Review Reviewed
--- NOTE | 2018-04-13 16:25 | EKG12_ITS ---
Test Reason : CHEST PAIN Blood Pressure : / mmHG Vent. Rate : 116 BPM Atrial Rate : 116 BPM P-R Int : 134 ms QRS Dur : 094 ms QT Int : 332 ms P-R-T Axes : 088 079 070 degrees QTc Int : 461 ms Sinus tachycardia with Premature atrial complexes Nonspecific ST abnormality Abnormal ECG When compared with ECG of 12-APR-2018 21:54, MANUAL COMPARISON REQUIRED, DATA IS UNCONFIRMED Confirmed by CORAZON STOUT, LIANG ([id number]), supervising editor trailer LAURA WONG ([id number]) on 04/18/2018 10:20:02 AM Referred By: Андрей Hernandes Confirmed By:LIANG CHANDRA MD
--- NOTE | 2018-04-13 16:30 | NURSING ---
Patient requested for nurse to ask hospitalist if he could have omeprazole ordered before supper as he has a nervous stomach. States that he takes this before dinner every night. RN called and spoke with hospitalist regarding same. Informed him that he had a dose of Protonix earlier in the day. Per hospitalist, patient could receive dose prior to dinner. RN informed patient of same. Patient became very upset when RN explained to patient that he could have another dose of the protonix as this is the interchange that pharmacy provided for omeprazole. Patient states that he received the omeprazole during his last admission and was very upset with this RN. RN called pharmacy and spoke with pharmacist. RN explained that patient states he received omeprazole during his last admission and is requesting same now. Pharmacist states that the pharmacy did the interchange, but that omeprazole was available as non-formulary. RN asked pharmacist if she would need to speak with Dr. Tarango regarding obtaining a new order for the omeprazole since it is available from pharmacy. Pharmacist stated no. Protonix to be changed to omeprazole by pharmacist. RN entered patient's room to tell him that pharmacy was able to provide omeprazole. Patient with noted tremors clenching chest complaining of chest pain. RN called for EKG. Vitals obtained and oxygen placed @ 2L NC. Chest pain resolved within a few minutes. EKG done. Will monitor.
[2018-04-13] MEDS: Omeprazole 20 MG Capsule PO (16:51)
--- NOTE | 2018-04-13 17:49 | NURSING ---
No further complaints of chest pain. Family at bedside.
--- NOTE | 2018-04-13 22:02 | CPS ---
patient recieved prn treatment due to sob.
[2018-04-13] MEDS: Mirtazapine 15 MG Tablet PO (22:08)
[2018-04-13] MEDS: Doxazosin 4 MG Tablet PO (22:08)
[2018-04-14] VITALS (22 sets, daily range): BP systolic 124–144; BP diastolic 62–75; PULSE 93–123; RESP 16–28; TEMP 36.3–36.6; O2SAT 95–97
[2018-04-14] MEDS: Ipratropium/Albuterol Sulfate 3 ML AMPUL.NEB INHALATION ×8 (00:27→22:38)
[2018-04-14] MEDS: 0.9% NaCl Peripheral Flush Adult/Peds IV ×4 (05:12→21:18)
--- NOTE | 2018-04-14 06:52 | EKG12_ITS ---
Test Reason : CHEST PAIN Blood Pressure : / mmHG Vent. Rate : 116 BPM Atrial Rate : 116 BPM P-R Int : 140 ms QRS Dur : 090 ms QT Int : 332 ms P-R-T Axes : 089 083 069 degrees QTc Int : 461 ms Sinus tachycardia with Premature atrial complexes Otherwise normal ECG When compared with ECG of 13-APR-2018 16:32, MANUAL COMPARISON REQUIRED, DATA IS UNCONFIRMED Confirmed by CORAZON STOUT, LIANG ([id number]), assignment desk editor LAURA WONG ([id number]) on 04/19/2018 5:38:06 PM Referred By: Андрей Hernandes Confirmed By:LIANG CHANDRA MD
--- NOTE | 2018-04-14 08:01 | PCM.PROGNOTE ---
Subjective: Chief complaint: Follow-up after admission for acute COPD exacerbation. Patient seen and examined. No acute events overnight. He still complaining of shortness of breath both at rest and with ambulation, no improvement. Still having cough with difficulty expectorating sputum. Denies fever or chills. He is afebrile, tachycardic, blood pressure and pulse ox are normal, he is tachypneic. - Physical Exam General: Alert, Oriented x3, Cooperative, - - Minimally short of breath. HEENT: Atraumatic, PERRLA, EOMI, Normocephalic Oral: Moist Mucosa, No Gingival or Mucosal Lesions/ Ulcerations Neck: Supple, No JVD, Negative Carotid Bruits, Trachea Midline, Thyroid Normal Size and Texture Lungs: No rhonchi, No rales, Diminished, Short of Breath, Wheezes, - - Decreased breath sounds bilateral, tight chest, occasional end expiratory wheezes. Cardiovascular: Regular rate, Regular Rhythm, Normal S1, Normal S2, PMI Normal, Tachycardic Abdomen: Bowel Sounds Present, Soft, Non Tender, Non-Distended, No Hepato-splenomegaly Extremities: No clubbing, No cyanosis, No edema Skin: No rashes, No breakdown Lymphatic: No Cervical, Supraclavicular, or Inguinal Adenopathy Neurological: Cranial nerves II-XII grossly intact, Neuro grossly intact Psych/Mental Status: Normal Affect, Appropriate, Alert and oriented to time, place, person, mood and affect Vital Signs Temp Pulse Resp BP Pulse Ox 97.8 F 120 H 24 H 144/64 H 96 04/14/18 05:00 04/14/18 07:09 04/14/18 05:00 04/14/18 05:00 04/14/18 05:00 Oxygen Flow Rate (L/min) 2 Oxygen Delivery Method Room Air Weight: 162 lb 11.218 oz Body Mass Index (BMI) 26.2 Intake and Output for Last 24 Hours 04/12/18 04/13/18 04/14/18 23:59 23:59 23:59 Intake Total 1730 / 1730 120 / 120 Balance 1730 / 1730 120 / 120 Microbiology Past 72 Hours 04/13/18 02:06 Influenza Types A,B Direct FA (ELIZABETH) - Final Mucosa - Nasopharyngeal Laboratory Tests Past 24 Hrs 04/12/18 04/13/18 04/14/18 21:17 06:05 06:55 Total Counted Not Reportable 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 #1 acute COPD exacerbation: He is on IV steroids and bronchodilators. Patient reported no improvement of his symptoms although he has been on room air. Chest x-ray showed no acute findings. He is still complaining of cough, no sputum. He has been tachycardic, afebrile. Blood pressure stable. EKG revealed sinus tachycardia. Troponin is negative. Plan: Start Mucomyst inhalation 3 times daily, walking pulse oximeter, decrease IV site Medrol down to every 12 hours. #2 tachycardia: This is chronic. EKG revealed sinus tachycardia. This is likely because of chronic COPD. Patient is listed as allergic to metoprolol with unknown type of allergy. I will start him on Coreg and monitor. #3 CAD status post stents: Stable, no chest pain, EKG reviewed as above. Continue aspirin, start Coreg as above. #4 anxiety: Continue Ativan. #5 benign prostatic hypertrophy: Continue with doxazosin and Proscar. #6 DVT prophylaxis: Subcu Lovenox. This note was generated with [employer] dictation software. It may contain incorrect words, spelling, and punctuation that were not noted in checking the note before signing. Code Visit Inpatient E&M: 95927 Subs Hosp L2
--- NOTE | 2018-04-14 08:08 | PN_ITS ---
Subjective: Chief complaint: Follow-up after admission for acute COPD exacerbation. Patient seen and examined. No acute events overnight. He still complaining of shortness of breath both at rest and with ambulation, no improvement. Still having cough with difficulty expectorating sputum. Denies fever or chills. He is afebrile, tachycardic, blood pressure and pulse ox are normal, he is tachypneic. - Physical Exam General: Alert, Oriented x3, Cooperative, - - Minimally short of breath. HEENT: Atraumatic, PERRLA, EOMI, Normocephalic Oral: Moist Mucosa, No Gingival or Mucosal Lesions/ Ulcerations Neck: Supple, No JVD, Negative Carotid Bruits, Trachea Midline, Thyroid Normal Size and Texture Lungs: No rhonchi, No rales, Diminished, Short of Breath, Wheezes, - - Decreased breath sounds bilateral, tight chest, occasional end expiratory wheezes. Cardiovascular: Regular rate, Regular Rhythm, Normal S1, Normal S2, PMI Normal, Tachycardic Abdomen: Bowel Sounds Present, Soft, Non Tender, Non-Distended, No Hepato- splenomegaly Extremities: No clubbing, No cyanosis, No edema Skin: No rashes, No breakdown Lymphatic: No Cervical, Supraclavicular, or Inguinal Adenopathy Neurological: Cranial nerves II-XII grossly intact, Neuro grossly intact Psych/Mental Status: Normal Affect, Appropriate, Alert and oriented to time, place, person, mood and affect Vital Signs Temp Pulse Resp BP Pulse Ox 97.8 F 120 H 24 H 144/64 H 96 04/14/18 05:00 04/14/18 07:09 04/14/18 05:00 04/14/18 05:00 04/14/18 05:00 Oxygen Flow Rate (L/min) 2 Oxygen Delivery Method Room Air Weight: 162 lb 11.218 oz Body Mass Index (BMI) 26.2 Intake and Output for Last 24 Hours 04/12/18 04/13/18 04/14/18 23:59 23:59 23:59 Intake Total 1730 / 1730 120 / 120 Balance 1730 / 1730 120 / 120 Microbiology Past 72 Hours 04/13/18 02:06 Influenza Types A,B Direct FA (ELIZABETH) - Final Mucosa - Nasopharyngeal Laboratory Tests Past 24 Hrs 04/12/18 04/13/18 04/14/18 21:17 06:05 06:55 Total Counted Not 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 #1 acute COPD exacerbation: He is on IV steroids and bronchodilators. Patient reported no improvement of his symptoms although he has been on room air. Chest x-ray showed no acute findings. He is still complaining of cough, no sputum. He has been tachycardic, afebrile. Blood pressure stable. EKG revealed sinus tachycardia. Troponin is negative. Plan: Start Mucomyst inhalation 3 times daily, walking pulse oximeter, decrease IV site Medrol down to every 12 hours. #2 tachycardia: This is chronic. EKG revealed sinus tachycardia. This is likely because of chronic COPD. Patient is listed as allergic to metoprolol with unknown type of allergy. I will start him on Coreg and monitor. #3 CAD status post stents: Stable, no chest pain, EKG reviewed as above. Continue aspirin, start Coreg as above. #4 anxiety: Continue Ativan. #5 benign prostatic hypertrophy: Continue with doxazosin and Proscar. #6 DVT prophylaxis: Subcu Lovenox. This note was generated with [employer] dictation software. It may contain incorrect words, spelling, and punctuation that were not noted in checking the note before signing. Code Visit Inpatient E&M: 95478 Subs Hosp L2
[2018-04-14] MEDS: LORazepam 1 MG Tablet PO ×2 (09:14→21:16)
[2018-04-14] MEDS: Aspirin 81 MG TAB.CHEW PO (09:14)
[2018-04-14] MEDS: Carvedilol 3.125 MG TABLET PO ×2 (09:15→21:16)
[2018-04-14] MEDS: Enoxaparin 40 MG/0.4 ML Syringe SC (09:15)
[2018-04-14] MEDS: guaiFENesin 1,200 MG Tablet 1200 MG PO ×2 (09:15→21:16)
[2018-04-14] MEDS: Finasteride 5 MG Tablet PO (09:15)
--- NOTE | 2018-04-14 11:31 | CASEMGMT ---
SOFIA PERSON LOG PEELER CM to room to meet with patient for initial transition planning/care coordination assessment. RN RAZA introduced self and role at [facility]. Pt voices understanding and consents to assessment at this time. Pt sitting up in chair, in no distress at this time. Pt is A/O at this time and answers all questions appropriately. Care providers, pharmacy, and demographics verified at this time. PCP: [facility] Specialists: Cecilio Rubio Pharmacy: [facility] Insurance: [employer], [place] Prescription Benefit: [place] Living Will/HPOA: Has both LW and HCPOA, who is his , Keturah. Both copies found in e-chart. LNOK: and daughter, Juliann Long Living Arrangements: Lives with in a one-story home. No steps to enter. Independent. Transportation: Pt states drives self and states no transportation concerns at this time. DME: Has [employer] for longer community distances. Has nebulizer. HHC/SNF: Has never used HHC services or been to a SNF. PT/OT cory completed. Discussed HHC and Out-pt therapy with pt. Pt denies needs for HHC and states is not interested in Out-pt therapy either. States he has a treadmill and bike at home and does well, except for when having breathing issues. Pt wishes to return home and states has no concerns with going home at time of discharge. Pt states does not smoke or drink ETOH. CM to follow for any discharge planning/needs. Pt voices no further concerns/needs at this time. Advised pt to ask for CM if any further questions/concerns/needs arise. Voices understanding. PLAN: Home Lawanda HUTTON RN, CM
[2018-04-14] MEDS: Acetylcysteine 800 MG/4 ML VIAL.NEB. INHALATION (14:54)
--- NOTE | 2018-04-14 16:08 | NURSING ---
Pt called nurse into the room stating that he was short of breath and having a hard time breathing. pulse ox is 97% on 2L NC that was placed on by the RT. the patient states that this started during his mucomyst breathing treatment. his lung sounds are very diminished, with almost no air movement heard. pt appears anxious. he is sitting up in a chair. he is able to talk in short sentences and answer questions appropriatetly. emotional support offered to the patient. Dr Tarango notified and new orders obtained.
[2018-04-14] MEDS: LORazepam 2 MG/ML Syringe 1 MG IV (16:23)
[2018-04-14 16:31] LABS: Allen Test POS; Base Excess -4 mmol/L (-2 to +2); Bicarbonate 21.9 mmol/L (22-26); Blood Gas Specimen Type ART; O2 Delivery Device Nasal Can; PO2 86 mmHG (75-100); SITE R Radial; SO2 96 % (95-99); Time Given 1610; Total Carbon Dioxide 23 mmol/L; pH 7.36 (7.35-7.45)
--- NOTE | 2018-04-14 16:44 | CPS ---
Patient became tachycardic during his treatment involving the mixture of Duoneb / Mucomyst
[2018-04-14] MEDS: Omeprazole 20 MG Capsule PO (17:34)
[2018-04-14] MEDS: Albuterol 2.5 MG/3 ML VIAL.NEB. INHALATION (20:41)
[2018-04-14] MEDS: Doxazosin 4 MG Tablet PO (21:16)
[2018-04-14] MEDS: Mirtazapine 15 MG Tablet PO (21:16)
[2018-04-15] VITALS (19 sets, daily range): BP systolic 113–136; BP diastolic 60–83; PULSE 69–120; RESP 12–24; TEMP 36.1–36.4; O2SAT 94–98
[2018-04-15 01:51] LABS: Anion Gap 8 (5-15); BUN 27 mg/dL (7-18); BUN/Creat Ratio 26.7 RATIO (10-20); Calcium,Total 8.3 mg/dL (8.5-10.1); Chloride 110 mmol/L (98-107); Creatinine, Serum 1.01 mg/dL (0.70-1.30); EST Glomerular Filtration Rate 76 mL/min (>60); Est Glom Filt Rate - Afr Amer 91 mL/min (>60); Estimated Creatinine Clearance 52.64 ml/min; Glucose 153 mg/dL (74-106); Magnesium 1.9 mg/dL (1.6-2.6); Potassium 4.1 mmol/L (3.5-5.1); Sodium Level 142 mmol/L (136-145)
[2018-04-15] MEDS: Ipratropium/Albuterol Sulfate 3 ML AMPUL.NEB INHALATION ×7 (01:53→23:21)
--- NOTE | 2018-04-15 03:27 | NURSING ---
RN explained to pt that his ventricles are lexi early (PVCs). Explained that the doctor might want to give him Magnesium. Pt states he does not believe he wants it. notified of Magnesium lab (1.9). No new orders.
--- NOTE | 2018-04-15 05:31 | NURSING ---
Pt educated on PVCs and Magnesium. Pt now agreeable to get Magnesium.
[2018-04-15] MEDS: Albuterol 2.5 MG/3 ML VIAL.NEB. INHALATION ×2 (10:02→17:50)
--- NOTE | 2018-04-15 10:06 | PN_ITS ---
Subjective: Chief complaint: Follow-up after admission for acute COPD exacerbation. Patient seen and examined. No acute events overnight. He is frustrated because he thinks Mucomyst inhalation made him more sick. He reported almost no improvement. Still having shortness of breath with minimal exertion and wheezing. Dry cough without sputum. His vital signs are stable, afebrile, heart rate started to come down, blood pressure stable, pulse ox is 96% on room air. - Physical Exam General: Alert, Oriented x3, Cooperative, - - Moderately short of breath. HEENT: Atraumatic, PERRLA, EOMI, Normocephalic Oral: Moist Mucosa, No Gingival or Mucosal Lesions/ Ulcerations Neck: Supple, No JVD, Negative Carotid Bruits, Trachea Midline, Thyroid Normal Size and Texture Lungs: No rhonchi, No rales, Diminished, Short of Breath, - - Markedly decreased breath sounds bilateral, bilateral expiratory wheezes. Cardiovascular: Regular rate, Regular Rhythm, Normal S1, Normal S2, PMI Normal Abdomen: Bowel Sounds Present, Soft, Non Tender, Non-Distended, No Hepato- splenomegaly Extremities: No clubbing, No cyanosis, No edema Skin: No rashes, No breakdown Lymphatic: No Cervical, Supraclavicular, or Inguinal Adenopathy Neurological: Cranial nerves II-XII grossly intact, Neuro grossly intact Psych/Mental Status: Normal Affect, Appropriate, Alert and oriented to time, place, person, mood and affect Vital Signs Temp Pulse Resp BP Pulse Ox 97.6 F L 81 18 113/60 96 04/15/18 08:27 04/15/18 08:27 04/15/18 08:27 04/15/18 08:27 04/15/18 08:27 Oxygen Flow Rate (L/min) 2 Oxygen Delivery Method Room Air Weight: 162 lb 11.218 oz Body Mass Index (BMI) 26.2 Intake and Output for Last 24 Hours 04/13/18 04/14/18 04/15/18 23:59 23:59 23:59 Intake Total 1730 / 1730 1590 / 1590 150 / 150 Output Total 550 / 550 Balance 1730 / 1730 1040 / 1040 150 / 150 Microbiology Past 72 Hours 04/13/18 02:06 Influenza Types A,B Direct FA (ELIZABETH) - Final Mucosa - Nasopharyngeal Laboratory Tests Past 24 Hrs 04/14/18 04/15/18 16:25 01:23 Specimen Type ART Sample Site R Radial pH 7.36 Bicarbonate Actual 21.9 L POC Total CO2 23 Base Excess -4 L O2 Saturation 96 ABG pCO2 39.0 ABG pO2 86 Colby Test POS O2 Delivery Device Nasal Can Liter Flow 2.0 Blood Gas Notified Whom HOSP Blood Gas Notified Time 1610 Sodium 142 Potassium 4.1 Chloride 110 H Carbon Dioxide 24.0 Anion Gap 8 BUN 27 H Creatinine 1.01 Estim Creat Clear Calc 52.64 Est GFR (MDRD) Af Amer 91 Est GFR (MDRD) Non-Af 76 BUN/Creatinine Ratio 26.7 H Glucose 153 H Calcium 8.3 L Magnesium 1.9 Medical Necessity - Tobacco Use Smoking Status: Former smoker Assessment/Plan All Active Problems COPD exacerbation (Acute) This is an 78 years old male patient admitted because of worsening shortness of breath, found to have acute COPD exacerbation. #1 acute COPD exacerbation: Remained on IV steroids and bronchodilators. Started on Mucomyst nebulizer yesterday, he thinks that it made him worse. Reported almost no improvement, still complaining of shortness of breath upon minimal exertion. Chest x-ray showed no acute findings. ABG performed yesterday and revealed pH of 7.36, PCO2 of 86 and PCO2 of 39. Although patient has been satting appropriately on room air, he continued to complain of shortness of breath and wheezing. Plan: Pulmonology consult, continue same treatment. #2 tachycardia: After started on Coreg, patient started having frequent trigeminy on telemetry. His serum electrolytes are within normal limits. Patient was listed as allergic to beta-blockers. At this time, I would discontinue Coreg and monitor. #3 CAD status post stents: Stable, no chest pain, EKG reviewed as above. Continue aspirin. #4 anxiety: Continue Ativan. #5 benign prostatic hypertrophy: Continue with doxazosin and Proscar. #6 DVT prophylaxis: Subcu Lovenox. This note was generated with [employer] dictation software. It may contain incorrect words, spelling, and punctuation that were not noted in checking the note before signing. Code Visit Inpatient E&M: 78296 Subs Hosp L2
[2018-04-15] MEDS: LORazepam 1 MG Tablet PO ×2 (10:28→22:25)
[2018-04-15] MEDS: Enoxaparin 40 MG/0.4 ML Syringe SC (10:28)
[2018-04-15] MEDS: guaiFENesin 1,200 MG Tablet 1200 MG PO ×2 (10:28→22:25)
[2018-04-15] MEDS: Aspirin 81 MG TAB.CHEW PO (10:30)
[2018-04-15] MEDS: Finasteride 5 MG Tablet PO (11:16)
[2018-04-15] MEDS: Omeprazole 20 MG Capsule PO (16:41)
--- NOTE | 2018-04-15 17:49 | NURSING ---
Atempted to completed walking pulse ox during therapy eval. Patient only able to walk about 30ft before coming very SOB. Walking pulse ox eval not completed at this time.
--- NOTE | 2018-04-15 18:37 | CON.PCM_ITS ---
Reason for Consult History of Present Illness: The patient is a 78 year old M known to me for end-stage COPD with frequent exacerbations Sudden onset of shortness of breath, unresponsive to an oral dose of prednisone No fevers no night sweats no chills He denies sputum production but reports very tight breathing and called squad to bring him into the hospital He did poorly with Mucomyst He indicates he is no better than yesterday and not any better than presentation on admission On presentation he had an elevated CO2 He has been treated with steroids and aerosol treatments [] Past Medical History Past Medical History (Chronic Problems): Chronic Problems Anxiety disorder (Chronic) COPD (chronic obstructive pulmonary disease) (Chronic) History of coronary angioplasty (Chronic) Type II diabetes mellitus (Chronic) H/O heart artery stent (Chronic) Allergies gabapentin Allergy (Unknown, Verified 04/12/18 21:15) Unknown alprazolam [From Xanax] Allergy (Verified 04/12/18 21:15) breathing issues belladonna alkaloids Allergy (Verified 04/12/18 21:15) Unknown cephalexin Allergy (Verified 04/12/18 21:15) Unknown ciprofloxacin [From Cipro] Allergy (Verified 04/12/18 21:15) Unknown dicyclomine Allergy (Verified 04/12/18 21:15) Unknown diltiazem Allergy (Verified 04/12/18 21:15) Unknown ezetimibe Allergy (Verified 04/12/18 21:15) Unknown fluvastatin Allergy (Verified 04/12/18 21:15) Unknown metoprolol [From Toprol XL] Allergy (Verified 04/12/18 21:15) Unknown nitrofurantoin Allergy (Verified 04/12/18 21:15) Unknown phenobarbital Allergy (Verified 04/12/18 21:15) Unknown prochlorperazine [From Compazine] Allergy (Verified 04/12/18 21:15) Unknown simvastatin [From Zocor] Allergy (Verified 04/12/18 21:15) Unknown Poxzjbo-Uyj-Xol Reductase Inhibitor Allergy (Verified 04/12/18 21:15) Unknown sulfamethoxazole [From Bactrim] Allergy (Verified 04/12/18 21:15) Unknown tamsulosin [From Flomax] Allergy (Verified 04/12/18 21:15) Unknown trimethoprim [From Bactrim] Allergy (Verified 04/12/18 21:15) Unknown Home Medications: Ambulatory Orders Medication Instructions Recorded Aspirin [Aspirin, Baby] 81 mg PO DAILY@0800 11/13/15 Budesonide/Formoterol 160/4.5 2 puff INHALATION BID 11/13/15 [Symbicort 160/4.5 Mcg Inhaler (SP)] Doxazosin Mesylate [Cardura] 4 mg PO QHS 11/13/15 Finasteride [Proscar] 5 mg PO DAILY 11/13/15 Mirtazapine [Remeron] 15 mg PO QHS 11/13/15 Omeprazole [Prilosec] 20 mg PO DAILY 11/13/15 Theophylline [Kevin-Dur] 300 mg PO BID 11/13/15 prednisoLONE eye drops (1 mL) 1 drop RIGHT EYE 4X/DAY PRN PRN 11/13/15 [Pred Forte eye drops (1 mL)] Guaifenesin [Mucinex] 1,200 mg PO BID PRN 07/29/17 Albuterol Inhaler [Ventolin Hfa] 1 - 2 puff INHALATION Q4H PRN PRN 08/26/17 #1 inhaler Lorazepam [Ativan] 1 mg PO BID #60 tab 08/26/17 Ipratropium/Albuterol Sulfate 3 ml INHALATION 4X/DAY PRN 03/11/18 [Duoneb] Nitroglycerin [Nitrostat] 0.4 mg SUBLINGUAL Q5M PRN 03/11/18 Roflumilast [Daliresp] 500 mcg PO DAILY 03/11/18 Surgical History: - - lung reduction surgery and cancer removal.cath with stent 11-12 years ago. Cardiac stenting in 2001 Psychiatric History: Anxiety Lives: Spouse/ Significant Other Smoking Status: Former smoker - *Family History Maternal History Items: Hypertension Paternal History Items: - - father was a smoker with copd Review of Systems Constitutional: Denies: Chills, Fever, Weight Change HEENT: Denies: Head Aches, Sinus Congestion, Sinus Drainage Cardiovascular: Reports: Chest Pressure, - - Chest tightness. Denies: Chest Pa in, Palpitations Respiratory: Reports: - - Shortness of breath at rest with sleeping with any movement. Denies: Cough, Shortness of breath at rest, Sputum production Gastrointestinal: Denies: Abdominal Pain, Nausea, Vomiting Genitourinary: Denies: Dysuria Musculoskeletal: Denies: Joint Pain, Joint Tenderness Skin: Denies: Rash, Wounds Neurological: Denies: Numbness, Tingling, Focal weakness Psychiatric: Denies: Anxiety, Depression, Homicidal Ideations, Suicidal Ideations Hematologic/ Lymphatic: Denies: Easy Bruising, Easy Bleeding - Physical Exam General: Alert, Oriented x3, Cooperative HEENT: Atraumatic, EOMI, Normocephalic Neck: Supple, No JVD, Negative Carotid Bruits, No Nodes Lungs: - - Diminished breath sounds, prolonged expiratory phase, unable to complete sentences, accessory muscle use, minimal cough, no sputum production, audible wheeze, expiratory wheeze throughout the entire cycle, sounds as though he is air trapping Cardiovascular: Regular rate, No murmurs, Tachycardic Abdomen: Bowel Sounds Present, Soft, Non Tender Extremities: No edema, Capillary Refill Less than 3 Seconds Skin: No rashes, No breakdown Musculoskeletal: No Tenderness to Palpation of Joints or Extremities Neurological: Cranial nerves II-XII grossly intact Psych/Mental Status: Normal Affect, Appropriate Vital Signs Temp Pulse Resp BP Pulse Ox 97.6 F L 104 H 22 H 116/67 96 04/15/18 14:30 04/15/18 17:51 04/15/18 17:51 04/15/18 14:30 04/15/18 14:30 Oxygen Flow Rate (L/min) 2 Oxygen Delivery Method Nasal Cannula Weight: 73.8 kg Body Mass Index (BMI) 26.2 Intake and Output for Last 24 Hours 04/13/18 04/14/18 04/15/18 23:59 23:59 23:59 Intake Total 1730 / 1730 1590 / 1590 390 / 390 Output Total 550 / 550 Balance 1730 / 1730 1040 / 1040 390 / 390 Microbiology Past 72 Hours 04/15/18 08:37 Respiratory Panel (PCR) - Final Mucosa - Nasopharyngeal 04/13/18 02:06 Influenza Types A,B Direct FA (ELIZABETH) - Final Mucosa - Nasopharyngeal Laboratory Tests Past 24 Hrs 04/15/18 01:23 Sodium 142 Potassium 4.1 Chloride 110 H Carbon Dioxide 24.0 Anion Gap 8 BUN 27 H Creatinine 1.01 Estim Creat Clear Calc 52.64 Est GFR (MDRD) Af Amer 91 Est GFR (MDRD) Non-Af 76 BUN/Creatinine Ratio 26.7 H Glucose 153 H Calcium 8.3 L Magnesium 1.9 Assessment/Plan All Active Problems COPD exacerbation (Acute) Severe end-stage COPD with respiratory failure acute on chronic and worsening health status overall over the last year with multiple admissions, history of carcinoma of the lung T1 N0 M0 lesion Status post lung volume reduction surgery over 5 years out from surgery His current status is poor with minimal air movement The patient is somewhat anxious tachypneic tachycardic I recommend Mucinex 1200 twice daily Solu-Medrol 60 IV every 6 Albuterol every 4 hours every 2 as needed while awake I would add either Spiriva or ipratropium Continue with high flow O2 I recommend a trial of Pap therapy through the night I will trial the patient at bilevel 10/5 12/6, CPAP pressures to see where he is most comfortable full facemask If the patient could wear the device while sleeping and while resting he would likely improve his ventilation, air trapping and have a sense of less dyspnea while the steroids to improve his status.
[2018-04-15] MEDS: 0.9% NaCl Peripheral Flush Adult/Peds IV (20:03)
[2018-04-15] MEDS: MethylPREDNISolone 125 MG/2 ML Vial 60 MG IV (20:03)
[2018-04-15] MEDS: Doxazosin 4 MG Tablet PO (22:25)
[2018-04-15] MEDS: Mirtazapine 15 MG Tablet PO (22:25)
[2018-04-16] VITALS (21 sets, daily range): BP systolic 124–150; BP diastolic 53–79; PULSE 91–118; RESP 12–20; TEMP 36.2–37.1; O2SAT 88–100
[2018-04-16] MEDS: MethylPREDNISolone 125 MG/2 ML Vial 60 MG IV ×4 (00:51→18:47)
[2018-04-16] MEDS: 0.9% NaCl Peripheral Flush Adult/Peds IV ×4 (00:51→18:48)
[2018-04-16] MEDS: Ipratropium/Albuterol Sulfate 3 ML AMPUL.NEB INHALATION ×6 (03:14→23:07)
--- NOTE | 2018-04-16 08:24 | PCM.PROGNOTE ---
Subjective: Chief complaint: Follow-up after admission for acute COPD exacerbation. Patient seen and examined. No acute events overnight. Today, he reported some improvement of his shortness of breath, feeling better. Still having dry cough. He was seen by pulmonology yesterday, started back on higher dose of IV steroids. Apart from chronic tachycardia, other vital signs are stable. - Physical Exam General: Alert, Oriented x3, Cooperative, - - Minimal shortness of breath. HEENT: Atraumatic, PERRLA, EOMI, Normocephalic Oral: Moist Mucosa, No Gingival or Mucosal Lesions/ Ulcerations Neck: Supple, No JVD, Negative Carotid Bruits, Trachea Midline, Thyroid Normal Size and Texture Lungs: No wheeze, No rales, Diminished, Rhonchi, - - Decreased breath sounds bilateral, scattered rhonchi. Cardiovascular: Regular rate, Regular Rhythm, Normal S1, Normal S2, PMI Normal, Tachycardic Abdomen: Bowel Sounds Present, Soft, Non Tender, Non-Distended, No Hepato-splenomegaly Extremities: No clubbing, No cyanosis, Edema - Trace edema. Skin: No rashes, No breakdown Lymphatic: No Cervical, Supraclavicular, or Inguinal Adenopathy Neurological: Cranial nerves II-XII grossly intact, Neuro grossly intact Psych/Mental Status: Normal Affect, Appropriate, Alert and oriented to time, place, person, mood and affect Vital Signs Temp Pulse Resp BP Pulse Ox 97.5 F L 117 H 18 128/53 H 95 04/16/18 02:46 04/16/18 07:21 04/16/18 03:14 04/16/18 02:46 04/16/18 02:46 Oxygen Flow Rate (L/min) 2 Oxygen Delivery Method Nasal Cannula Weight: 162 lb 11.218 oz Body Mass Index (BMI) 26.2 Intake and Output for Last 24 Hours 04/14/18 04/15/18 04/16/18 23:59 23:59 23:59 Intake Total 1590 / 1590 390 / 390 Output Total 550 / 550 200 / 200 Balance 1040 / 1040 390 / 390 -200 / -200 Microbiology Past 72 Hours 04/15/18 08:37 Respiratory Panel (PCR) - Final Mucosa - Nasopharyngeal Medical Necessity - Tobacco Use Smoking Status: Former smoker Assessment/Plan All Active Problems COPD exacerbation (Acute) This is an 78 years old male patient admitted because of worsening shortness of breath, found to have acute COPD exacerbation. #1 acute COPD exacerbation: Started back on higher dose of IV steroids, continued on bronchodilators. Today, patient reported improvement of his symptoms and he is feeling better. He is on 2 L of oxygen, heart rate has been around 100-110, other vital signs are stable. Chest x-ray showed no acute findings. ABG performed and revealed pH of 7.36, PCO2 of 86 and PCO2 of 39. Appreciate pulmonary recommendations. Plan to continue same treatment. #2 tachycardia: Heart rate remains around 100-110 which is his baseline and chronic. Coreg discontinued because of frequent trigeminy. Hisserum electrolytes are within normal limits. Patient was listed as allergic to beta-blockers. #3 CAD status post stents: Stable, no chest pain, EKG reviewed reveals sinus tachycardia, no acute ischemic changes. Continue aspirin. #4 anxiety: Continue Ativan. #5 benign prostatic hypertrophy: Continue with doxazosin and Proscar. #6 DVT prophylaxis: Subcu Lovenox. This note was generated with [employer] dictation software. It may contain incorrect words, spelling, and punctuation that were not noted in checking the note before signing. Code Visit Inpatient E&M: 48387 Subs Hosp L2
--- NOTE | 2018-04-16 08:29 | PN_ITS ---
Subjective: Chief complaint: Follow-up after admission for acute COPD exacerbation. Patient seen and examined. No acute events overnight. Today, he reported some improvement of his shortness of breath, feeling better. Still having dry cough. He was seen by pulmonology yesterday, started back on higher dose of IV steroids. Apart from chronic tachycardia, other vital signs are stable. - Physical Exam General: Alert, Oriented x3, Cooperative, - - Minimal shortness of breath. HEENT: Atraumatic, PERRLA, EOMI, Normocephalic Oral: Moist Mucosa, No Gingival or Mucosal Lesions/ Ulcerations Neck: Supple, No JVD, Negative Carotid Bruits, Trachea Midline, Thyroid Normal Size and Texture Lungs: No wheeze, No rales, Diminished, Rhonchi, - - Decreased breath sounds bilateral, scattered rhonchi. Cardiovascular: Regular rate, Regular Rhythm, Normal S1, Normal S2, PMI Normal, Tachycardic Abdomen: Bowel Sounds Present, Soft, Non Tender, Non-Distended, No Hepato-splenomegaly Extremities: No clubbing, No cyanosis, Edema - Trace edema. Skin: No rashes, No breakdown Lymphatic: No Cervical, Supraclavicular, or Inguinal Adenopathy Neurological: Cranial nerves II-XII grossly intact, Neuro grossly intact Psych/Mental Status: Normal Affect, Appropriate, Alert and oriented to time, place, person, mood and affect Vital Signs Temp Pulse Resp BP Pulse Ox 97.5 F L 117 H 18 128/53 H 95 04/16/18 02:46 04/16/18 07:21 04/16/18 03:14 04/16/18 02:46 04/16/18 02:46 Oxygen Flow Rate (L/min) 2 Oxygen Delivery Method Nasal Cannula Weight: 162 lb 11.218 oz Body Mass Index (BMI) 26.2 Intake and Output for Last 24 Hours 04/14/18 04/15/18 04/16/18 23:59 23:59 23:59 Intake Total 1590 / 1590 390 / 390 Output Total 550 / 550 200 / 200 Balance 1040 / 1040 390 / 390 -200 / -200 Microbiology Past 72 Hours 04/15/18 08:37 Respiratory Panel (PCR) - Final Mucosa - Nasopharyngeal Medical Necessity - Tobacco Use Smoking Status: Former smoker Assessment/Plan All Active Problems COPD exacerbation (Acute) This is an 78 years old male patient admitted because of worsening shortness of breath, found to have acute COPD exacerbation. #1 acute COPD exacerbation: Started back on higher dose of IV steroids, continued on bronchodilators. Today, patient reported improvement of his symptoms and he is feeling better. He is on 2 L of oxygen, heart rate has been around 100-110, other vital signs are stable. Chest x-ray showed no acute findin gs. ABG performed and revealed pH of 7.36, PCO2 of 86 and PCO2 of 39. Appreciate pulmonary recommendations. Plan to continue same treatment. #2 tachycardia: Heart rate remains around 100-110 which is his baseline and chronic. Coreg discontinued because of frequent trigeminy. Hisserum electrolytes are within normal limits. Patient was listed as allergic to beta- blockers. #3 CAD status post stents: Stable, no chest pain, EKG reviewed reveals sinus tachycardia, no acute ischemic changes. Continue aspirin. #4 anxiety: Continue Ativan. #5 benign prostatic hypertrophy: Continue with doxazosin and Proscar. #6 DVT prophylaxis: Subcu Lovenox. This note was generated with [employer] dictation software. It may contain incorrect words, spelling, and punctuation that were not noted in checking the note before signing. Code Visit Inpatient E&M: 97945 Subs Hosp L2
[2018-04-16] MEDS: Aspirin 81 MG TAB.CHEW PO (08:59)
[2018-04-16] MEDS: guaiFENesin 1,200 MG Tablet 1200 MG PO ×2 (08:59→22:08)
[2018-04-16] MEDS: LORazepam 1 MG Tablet PO ×2 (08:59→22:07)
[2018-04-16] MEDS: Enoxaparin 40 MG/0.4 ML Syringe SC (08:59)
[2018-04-16] MEDS: Finasteride 5 MG Tablet PO (09:06)
[2018-04-16] MEDS: Omeprazole 20 MG Capsule PO (16:33)
--- NOTE | 2018-04-16 18:27 | PCM.PROGNOTE ---
- Physical Exam General: Alert, Oriented x3, Cooperative HEENT: Atraumatic, EOMI, Normocephalic Neck: Supple, No JVD, Negative Carotid Bruits Lungs: - - Decreased breath sounds, improved air entry from 24 hours prior, less cough, no accessory muscle use, able to speak in full sentences, able to come off mechanical Pap support and feel comfortable Cardiovascular: Regular rate, No murmurs Abdomen: Bowel Sounds Present, Soft, Non Tender Extremities: No edema, Capillary Refill Less than 3 Seconds Skin: No rashes, No breakdown Musculoskeletal: No Tenderness to Palpation of Joints or Extremities Neurological: Cranial nerves II-XII grossly intact Psych/Mental Status: Normal Affect, Appropriate Vital Signs Temp Pulse Resp BP Pulse Ox 98.7 F 118 H 18 150/79 H 98 04/16/18 12:47 04/16/18 15:22 04/16/18 15:13 04/16/18 12:47 04/16/18 15:13 Oxygen Flow Rate (L/min) 2 Oxygen Delivery Method Nasal Cannula Weight: 73.8 kg Body Mass Index (BMI) 26.2 Intake and Output for Last 24 Hours 04/14/18 04/15/18 04/16/18 23:59 23:59 23:59 Intake Total 1590 / 1590 390 / 390 240 / 240 Output Total 550 / 550 200 / 200 Balance 1040 / 1040 390 / 390 40 / 40 Microbiology Past 72 Hours 04/15/18 08:37 Respiratory Panel (PCR) - Final Mucosa - Nasopharyngeal Medical Necessity - Tobacco Use Smoking Status: Former smoker Assessment/Plan All Active Problems COPD exacerbation (Acute) This is an 78-year-old gentleman who presents with marked shortness of breath, COPD exacerbation Responding now to high-dose steroids 60 mg every 6 and Pap therapy. The patient has done well on 03/09, supplemental O2 added According to the nurse the patient was ambulated today and saturations remained at 88% The patient was able to come off of oxygen for brief periods of time today He still has secretions inspissated in the chest, he reports that he is not able to advance secretions well Plan: For now continue Solu-Medrol 60 every 6 IV I would not wean the steroids until the day of discharge I would continue to use BiPAP for the next 12 hours through the night and then as needed during the next day The patient needs to be ambulated Proceed with saline or hypertonic saline nebulized to see if the patient tolerates Also recommended would be a flutter valve after the hypertonic saline Continue aerosol treatments, continue antibiotics steroids supplemental O2
[2018-04-16] MEDS: Doxazosin 4 MG Tablet PO (22:07)
[2018-04-16] MEDS: Mirtazapine 15 MG Tablet PO (22:08)
[2018-04-17] VITALS (20 sets, daily range): BP systolic 122–152; BP diastolic 52–79; PULSE 87–119; RESP 12–20; TEMP 36.3–36.9; O2SAT 90–98
[2018-04-17] MEDS: 0.9% NaCl Peripheral Flush Adult/Peds IV ×6 (00:42→18:21)
[2018-04-17] MEDS: MethylPREDNISolone 125 MG/2 ML Vial 60 MG IV ×4 (00:42→18:21)
[2018-04-17] MEDS: Ipratropium/Albuterol Sulfate 3 ML AMPUL.NEB INHALATION ×6 (03:15→22:46)
[2018-04-17 06:52] LABS: Anion Gap 8 (5-15); BUN 28 mg/dL (7-18); Calcium,Total 8.3 mg/dL (8.5-10.1); Chloride 110 mmol/L (98-107); EST Glomerular Filtration Rate 76 mL/min (>60); Est Glom Filt Rate - Afr Amer 92 mL/min (>60); Estimated Creatinine Clearance 53.17 ml/min; Glucose 196 mg/dL (74-106); Magnesium 2.6 mg/dL (1.6-2.6); Potassium 4.4 mmol/L (3.5-5.1); Sodium Level 142 mmol/L (136-145)
[2018-04-17] MEDS: Aspirin 81 MG TAB.CHEW PO (08:24)
--- NOTE | 2018-04-17 08:43 | PCM.PROGNOTE ---
Subjective: Chief complaint: Follow-up after admission for acute COPD exacerbation. Patient seen and examined. No acute events overnight. He is feeling better, less short of breath, still complaining of cough with difficulty expectorating sputum. Denies fever chills. Vital signs are stable. - Physical Exam General: Alert, Oriented x3, Cooperative, - - Minimally short of breath. HEENT: Atraumatic, PERRLA, EOMI, Normocephalic Oral: Moist Mucosa, No Gingival or Mucosal Lesions/ Ulcerations Neck: Supple, No JVD, Negative Carotid Bruits, Trachea Midline, Thyroid Normal Size and Texture Lungs: Diminished, Rhonchi, Short of Breath, Wheezes, - - Decreased breath sounds bilateral, scattered wheezing, rhonchi. Cardiovascular: Regular rate, Regular Rhythm, Normal S1, Normal S2, PMI Normal Abdomen: Bowel Sounds Present, Soft, Non Tender, Non-Distended, No Hepato-splenomegaly Extremities: No clubbing, No cyanosis, No edema Skin: No rashes, No breakdown Lymphatic: No Cervical, Supraclavicular, or Inguinal Adenopathy Neurological: Cranial nerves II-XII grossly intact, Neuro grossly intact Psych/Mental Status: Normal Affect, Appropriate, Alert and oriented to time, place, person, mood and affect Vital Signs Temp Pulse Resp BP Pulse Ox 97.4 F L 104 H 18 134/56 H 98 04/17/18 08:17 04/17/18 08:17 04/17/18 08:17 04/17/18 08:17 04/17/18 08:17 Oxygen Flow Rate (L/min) 2 Oxygen Delivery Method Room Air Weight: 162 lb 11.218 oz Body Mass Index (BMI) 26.2 Intake and Output for Last 24 Hours 04/15/18 04/16/18 04/17/18 23:59 23:59 23:59 Intake Total 390 / 390 480 / 480 515 / 515 Output Total 200 / 200 Balance 390 / 390 280 / 280 515 / 515 Microbiology Past 72 Hours 04/15/18 08:37 Respiratory Panel (PCR) - Final Mucosa - Nasopharyngeal Laboratory Tests Past 24 Hrs 04/17/18 05:30 Sodium 142 Potassium 4.4 Chloride 110 H Carbon Dioxide 24.0 Anion Gap 8 BUN 28 H Creatinine 1.00 Estim Creat Clear Calc 53.17 Est GFR (MDRD) Af Amer 92 Est GFR (MDRD) Non-Af 76 BUN/Creatinine Ratio 28.0 H Glucose 196 H Calcium 8.3 L Magnesium 2.6 Medical Necessity - Tobacco Use Smoking Status: Former smoker Assessment/Plan All Active Problems COPD exacerbation (Acute) This is an 78 years old male patient admitted because of worsening shortness of breath, found to have acute COPD exacerbation. #1 acute COPD exacerbation: He is on higher dose of IV steroids as per pulmonology recommendation, continued on bronchodilators. Today, continued to report slow improvement, still having a dry cough. This morning, pulse ox is 98% on room air. Chest x-ray showed no acute findings. Dr. Hernandes recommended to keep patient on high-dose IV steroids without tapering until the day of discharge. Plan: Continue same treatment, possible DC home tomorrow, patient would like to see Dr. Hernandes tomorrow before discharge. #2 tachycardia: Heart rate remains around 100-110 which is his baseline and chronic. Coreg discontinued because of frequent trigeminy. This is chronic. #3 CAD status post stents: Stable, no chest pain, EKG reviewed reveals sinus tachycardia, no acute ischemic changes. Continue aspirin. #4 anxiety: Continue Ativan. #5 benign prostatic hypertrophy: Continue with doxazosin and Proscar. #6 DVT prophylaxis: Subcu Lovenox. This note was generated with [employer] dictation software. It may contain incorrect words, spelling, and punctuation that were not noted in checking the note before signing. Code Visit Inpatient E&M: 84925 Subs Hosp L2
[2018-04-17] MEDS: LORazepam 1 MG Tablet PO ×2 (09:45→21:43)
[2018-04-17] MEDS: guaiFENesin 1,200 MG Tablet 1200 MG PO ×2 (09:45→21:43)
[2018-04-17] MEDS: Enoxaparin 40 MG/0.4 ML Syringe SC (09:46)
[2018-04-17] MEDS: Finasteride 5 MG Tablet PO (09:46)
--- NOTE | 2018-04-17 13:37 | NURSING ---
pt ambulated in hallway on RA. Pt tolerated ambulation well. SPO2 91% immediately after ambulation and then shortly recovered to 98%.
[2018-04-17] MEDS: Omeprazole 20 MG Capsule PO (16:37)
[2018-04-17] MEDS: Mirtazapine 15 MG Tablet PO (21:44)
[2018-04-17] MEDS: Doxazosin 4 MG Tablet PO (21:44)
[2018-04-18] VITALS (9 sets, daily range): BP systolic 118–128; BP diastolic 68–77; PULSE 64–124; RESP 18–24; TEMP 36.3–37.1; O2SAT 92–98
[2018-04-18] MEDS: MethylPREDNISolone 125 MG/2 ML Vial 60 MG IV ×3 (00:38→12:03)
[2018-04-18] MEDS: 0.9% NaCl Peripheral Flush Adult/Peds IV ×3 (00:38→12:04)
[2018-04-18] MEDS: Ipratropium/Albuterol Sulfate 3 ML AMPUL.NEB INHALATION ×3 (03:12→10:32)
--- NOTE | 2018-04-18 08:24 | PCM.PROGNOTE ---
- Physical Exam General: Alert, Oriented x3, Cooperative, - HEENT: Atraumatic, EOMI, Normocephalic Neck: Supple, No JVD, Negative Carotid Bruits Lungs: - - Markedly diminished breath sounds, no accessory muscle use, able to complete sentences, no audible wheeze, end expiratory wheezing, prolonged expiratory phase, improved air entry from ba 48 hours ago Cardiovascular: Regular rate, No murmurs Abdomen: Bowel Sounds Present, Soft, Non Tender Extremities: No edema, Capillary Refill Less than 3 Seconds Skin: No rashes, No breakdown Musculoskeletal: No Tenderness to Palpation of Joints or Extremities Neurological: Cranial nerves II-XII grossly intact Psych/Mental Status: Normal Affect, Appropriate Vital Signs Temp Pulse Resp BP Pulse Ox 98.8 F 118 H 20 H 128/68 H 92 04/18/18 03:47 04/18/18 07:02 04/18/18 07:02 04/18/18 03:47 04/18/18 07:02 Oxygen Flow Rate (L/min) 2 Oxygen Delivery Method Nasal Cannula Weight: 73.8 kg Body Mass Index (BMI) 26.2 Intake and Output for Last 24 Hours 04/16/18 04/17/18 04/18/18 23:59 23:59 23:59 Intake Total 480 / 480 1235 / 1235 520 / 520 Output Total 200 / 200 Balance 280 / 280 1235 / 1235 520 / 520 Microbiology Past 72 Hours 04/15/18 08:37 Respiratory Panel (PCR) - Final Mucosa - Nasopharyngeal Medical Necessity - Tobacco Use Smoking Status: Former smoker Assessment/Plan All Active Problems COPD exacerbation (Acute) Improving air entry Improving oxygenation, improving exercise tolerance Severe end-stage COPD Weak but stable, this patient could follow-up as outpatient within 1 week Discharge on 40 mg of prednisone for 4 days 30 mg for days 20 mg for days Aerosol treatments every 4 at home Continue with home inhalers, Resume Daliresp If the patient is unable to function at home short stay in a nursing facility would be reasonable Thank you for allowing me to participate in the patient's care
[2018-04-18] MEDS: guaiFENesin 1,200 MG Tablet 1200 MG PO (09:15)
[2018-04-18] MEDS: Finasteride 5 MG Tablet PO (09:15)
[2018-04-18] MEDS: Aspirin 81 MG TAB.CHEW PO (09:15)
[2018-04-18] MEDS: Enoxaparin 40 MG/0.4 ML Syringe SC (09:15)
[2018-04-18] MEDS: LORazepam 1 MG Tablet PO (09:15)
--- NOTE | 2018-04-18 11:21 | DCINST_ITS ---
- Discharge Diagnoses Current Active Problems: Current Active and Chronic Problems COPD (chronic obstructive pulmonary disease) (Chronic) You will use the following diet at home:: Cardiac Your food should be the consistency of: Regular Your liquids should be the consistency of: Regular/Thin Discharge Activity: Return to Normal Activity Allergies/Adverse Reactions: Allergies gabapentin Allergy (Unknown, Verified 04/12/18 21:15) Unknown alprazolam [From Xanax] Allergy (Verified 04/12/18 21:15) breathing issues belladonna alkaloids Allergy (Verified 04/12/18 21:15) Unknown cephalexin Allergy (Verified 04/12/18 21:15) Unknown ciprofloxacin [From Cipro] Allergy (Verified 04/12/18 21:15) Unknown dicyclomine Allergy (Verified 04/12/18 21:15) Unknown diltiazem Allergy (Verified 04/12/18 21:15) Unknown ezetimibe Allergy (Verified 04/12/18 21:15) Unknown fluvastatin Allergy (Verified 04/12/18 21:15) Unknown metoprolol [From Toprol XL] Allergy (Verified 04/12/18 21:15) Unknown nitrofurantoin Allergy (Verified 04/12/18 21:15) Unknown phenobarbital Allergy (Verified 04/12/18 21:15) Unknown prochlorperazine [From Compazine] Allergy (Verified 04/12/18 21:15) Unknown simvastatin [From Zocor] Allergy (Verified 04/12/18 21:15) Unknown Scbdjbx-Wul-Pxb Reductase Inhibitor Allergy (Verified 04/12/18 21:15) Unknown sulfamethoxazole [From Bactrim] Allergy (Verified 04/12/18 21:15) Unknown tamsulosin [From Flomax] Allergy (Verified 04/12/18 21:15) Unknown trimethoprim [From Bactrim] Allergy (Verified 04/12/18 21:15) Unknown Medications to take at Discharge Aspirin [Aspirin, Baby] 81 mg PO DAILY@0800 11/13/15 Budesonide/Formoterol 160/4.5 [Symbicort 160/4.5 Mcg Inhaler (SP)] 2 puff INHALATION BID 11/13/15 Doxazosin Mesylate [Cardura] 4 mg PO QHS 11/13/15 Finasteride [Proscar] 5 mg PO DAILY 08/10/16 Mirtazapine [Remeron] 15 mg PO QHS 11/13/15 Omeprazole [Prilosec] 20 mg PO DAILY 11/13/15 Theophylline [Kevin-Dur] 300 mg PO BID 11/13/15 prednisoLONE eye drops (1 mL) [Pred Forte eye drops (1 mL)] 1 drop RIGHT EYE 4X/DAY PRN PRN 11/13/15 Guaifenesin [Mucinex] 1,200 mg PO BID PRN 07/29/17 Albuterol Inhaler [Ventolin Hfa] 1 - 2 puff INHALATION Q4H PRN PRN #1 inhaler 08/26/17 Lorazepam [Ativan] 1 mg PO BID #60 tab 08/26/17 Ipratropium/Albuterol Sulfate [Duoneb] 3 ml INHALATION 4X/DAY PRN 03/11/18 Nitroglycerin [Nitrostat] 0.4 mg SUBLINGUAL Q5M PRN 03/11/18 Roflumilast [Daliresp] 500 mcg PO DAILY 03/11/18 Prednisone 10 mg PO UD #30 tab 04/18/18 The following prescriptions were given: Prednisone 10 mg PO UD #30 tab Primary Care Physician: Dutch Lee III, MD [Primary Care Provider] - Please follow up with your Primary Care Physician in: 1-2 weeks Test Results: Test results from this visit will be discussed in further detail at your follow- up appointment, if applicable. Please Follow Up With: Андрей Hernandes MD When: 1 week Proposed Discharge Date: 04/18/18
--- NOTE | 2018-04-18 15:07 | PCM.DC.SUM ---
<Edwin Orellana - Last Filed: 04/18/18 15:08> Discharge Date and Diagnosis Date of Admission: 04/13/18 Date of Discharge: 04/18/18 - Primary Discharge Diagnosis Acute COPD exacerbation CAD prior stents Anxiety BPH Type 2 diabetes mellitus - Secondary Discharge Diagnosis Chronic Problems Anxiety disorder (Chronic) COPD (chronic obstructive pulmonary disease) (Chronic) History of coronary angioplasty (Chronic) Type II diabetes mellitus (Chronic) H/O heart artery stent (Chronic) Hospital Course and Treatment Imaging Results: RAD/Chest PA and Lateral IMPRESSION: No acute thoracic pathology. Consultations: Pulmonology-[facility] Operations: None Procedures: None Summary of Care Provided: Hospital course: The patient is a 78 year old M with past medical history of end-stage COPD, chronic hypoxic respiratory failure anxiety, type 2 diabetes, CAD with prior stent, who presented to the emergency room with progressively worsening worsening of shortness of breath and a cough with sputum production. He had a negative chest x-ray, negative troponin, negative EKG and was felt to be in acute COPD exacerbation. He was admitted to the PCU and his director of guidance was consulted. He was placed on IV Solu-Medrol and aerosol therapy. He was given BiPAP at rest which he tolerated well. He does not have this at home. He was stable throughout his stay on his home oxygen without desaturation was not felt to have acute hypoxic respiratory failure. He was transitioned to an oral prednisone taper. He was discharged home in stable condition and will need follow-up with his director of guidance in 1 week, and will need to follow-up with his PCP in 1-2 weeks. This patient was seen by Edwin Orellana PA-C under the supervision of Doctor Cabrera. [] - Physical Exam General: Alert, Oriented x3, Cooperative HEENT: Atraumatic, PERRLA, EOMI, Normocephalic Neck: Supple, No JVD, Negative Carotid Bruits Lungs: Diminished Cardiovascular: Regular rate, No murmurs Abdomen: Bowel Sounds Present, Soft, Non Tender Extremities: No edema, Capillary Refill Less than 3 Seconds Skin: No rashes, No breakdown Musculoskeletal: No Tenderness to Palpation of Joints or Extremities Neurological: Cranial nerves II-XII grossly intact Psych/Mental Status: Normal Affect, Appropriate, Alert and oriented to time, place, person, mood and affect Vital Signs Temp Pulse Resp BP Pulse Ox 97.4 F L 117 H 20 H 118/77 98 04/18/18 09:45 04/18/18 12:14 04/18/18 10:32 04/18/18 09:45 04/18/18 09:45 Oxygen Flow Rate (L/min) 2 Oxygen Delivery Method Nasal Cannula Weight: 162 lb 11.218 oz Body Mass Index (BMI) 26.2 Intake and Output for Last 24 Hours 04/16/18 04/17/18 04/18/18 23:59 23:59 23:59 Intake Total 480 / 480 1235 / 1235 900 / 900 Output Total 200 / 200 Balance 280 / 280 1235 / 1235 900 / 900 Microbiology Past 72 Hours 04/15/18 08:37 Respiratory Panel (PCR) - Final Mucosa - Nasopharyngeal Discharge Diet: Low fat/ Low Cholesterol, 1800 Calorie Control Diet, 2000 mg Sodium Diet Discharge Activity: Return to Normal Activity Home Medications: Medications to take at Discharge Aspirin [Aspirin, Baby] 81 mg PO DAILY@0800 11/13/15 Budesonide/Formoterol 160/4.5 [Symbicort 160/4.5 Mcg Inhaler (SP)] 2 puff INHALATION BID 11/13/15 Doxazosin Mesylate [Cardura] 4 mg PO QHS 11/13/15 Finasteride [Proscar] 5 mg PO DAILY 11/13/15 Mirtazapine [Remeron] 15 mg PO QHS 11/13/15 Omeprazole [Prilosec] 20 mg PO DAILY 11/13/15 Theophylline [Kevin-Dur] 300 mg PO BID 11/13/15 prednisoLONE eye drops (1 mL) [Pred Forte eye drops (1 mL)] 1 drop RIGHT EYE 4X/DAY PRN PRN 11/13/15 Guaifenesin [Mucinex] 1,200 mg PO BID PRN 07/29/17 Albuterol Inhaler [Ventolin Hfa] 1 - 2 puff INHALATION Q4H PRN PRN #1 inhaler 08/26/17 Lorazepam [Ativan] 1 mg PO BID #60 tab 08/26/17 Ipratropium/Albuterol Sulfate [Duoneb] 3 ml INHALATION 4X/DAY PRN 03/11/18 Nitroglycerin [Nitrostat] 0.4 mg SUBLINGUAL Q5M PRN 03/11/18 Roflumilast [Daliresp] 500 mcg PO DAILY 03/11/18 Prednisone 10 mg PO UD #30 tab 04/18/18 Following Prescrptions Were Given to Patient: Prednisone 10 mg PO UD #30 tab Primary Care Physician: Dutch Lee III, MD [Primary Care Provider] - Please follow up with your Primary Care Physician in: 1-2 weeks Please Follow Up With: Андрей Hernandes MD When: 1 week Please Follow Up With: Dutch Lee III, MD Disposition: Home Minutes spent on discharge:: 35 Patient Condition:: Stable Medical Necessity - Tobacco Use Smoking Status: Former smoker Meaningful Use Info Meaningful Use Diagnoses (Choose all that apply): None applicable <[email or web address] - Last Filed: 04/18/18 15:31> Discharge Date and Diagnosis - Secondary Discharge Diagnosis Chronic Problems Anxiety disorder (Chronic) COPD (chronic obstructive pulmonary disease) (Chronic) History of coronary angioplasty (Chronic) Type II diabetes mellitus (Chronic) H/O heart artery stent (Chronic) Hospital Course and Treatment Summary of Care Provided: This patient was seen in conjunction with Edwin Orellana PA-C . I have independently interviewed and examined the patient and reviewed pertinent historical, laboratory, and other data. Please refer to Edwin Orellana PA-C note for details of this patient's presentation, findings, and recommendations. I have reviewed Edwin Orellana PA-C note and concur with documented findings. In brief, patient is a 78-year-old gentleman with history of end-stage COPD admitted with progressive shortness of breath patient was managed as a case of COPD exacerbation Patient was seen and examined on the day of his discharge instructions reviewed with him. Hospital course as elicited above by Edwin Orellana - Physical Exam Vital Signs Temp Pulse Resp BP Pulse Ox 97.4 F L 117 H 20 H 118/77 98 04/18/18 09:45 04/18/18 12:14 04/18/18 10:32 04/18/18 09:45 04/18/18 09:45 Oxygen Flow Rate (L/min) 2 Oxygen Delivery Method Nasal Cannula Weight: 73.8 kg Body Mass Index (BMI) 26.2 Intake and Output for Last 24 Hours 04/16/18 04/17/18 04/18/18 23:59 23:59 23:59 Intake Total 480 / 480 1235 / 1235 900 / 900 Output Total 200 / 200 Balance 280 / 280 1235 / 1235 900 / 900 Microbiology Past 72 Hours 04/15/18 08:37 Respiratory Panel (PCR) - Final Mucosa - Nasopharyngeal Code Visit Inpatient E&M: 43681 Disch Hosp
--- NOTE | 2018-04-19 13:32 | CASEMGMT ---
SOFIA CM DC CALL DC DATE: 04/18/18 DC Disposition: Home LACE/STRATA: 13/ Intro role of CM to via phone. She states pt is improving. No questions re: medications, prescriptions or f/u. did state she was upset on admission that pt's medication was not received from pharmacy and given in a timely manner and theophylline was dc'd by physician, but reinstated by Dr. Hernandes. had to bring this medication from home. Filippo KON RN ACM
== END 2018-04-18 13:05 | disposition home or self-care (01) | DRG 191 ==
LOC: ED 23:15 → PCU 04-13 01:33
PROVIDERS: Hospitalist; Admitting Provider Hospitalist; Emergency Provider Emergency Medicine; Family Provider Family Medicine; PCP Family Medicine; Visit Provider Internal Medicine
DX: J44.1 Chronic obstructive pulmonary disease with (acute) exacerbation (principal); J96.11 Chronic respiratory failure with hypoxia; I25.10 Atherosclerotic heart disease of native coronary artery without angina pectoris; N40.0 Benign prostatic hyperplasia without lower urinary tract symptoms; F41.9 Anxiety disorder, unspecified; Z95.5 Presence of coronary angioplasty implant and graft; Z79.899 Other long term (current) drug therapy; Z87.891 Personal history of nicotine dependence; Z85.118 Personal history of other malignant neoplasm of bronchus and lung
CPT/HCPCS: 36415; 36600; 71046; 80048; 82803; 83735; 84484; 85025; 87633; 87804; 93005; 94002; 94003; 94640; 94667; 94668; 97116; 97162; 97165; 97530; 99285; A4216

== ENCOUNTER → 2018-07-22 14:21 | Outpatient (CLI) | payer MEDICARE, BC, SELFPAY ==
[2018-04-13 01:38] VITALS: BMI 26.2
--- NOTE | 2018-07-22 14:25 | CT_ITS ---
STUDY: CT CHEST WITHOUT CONTRAST REASON FOR EXAM: Male, 78 years old. Lung cancer follow-up. Removal of tumor only. RADIATION DOSAGE (If Supplied By Facility): CTDIvol = ( 9.53 ) mGy, DLP = ( 375.95 ) mGycm TECHNIQUE: Transaxial imaging was performed without the administration of intravenous contrast material. Individualized dose optimization techniques were used for this CT. COMPARISON: February 23, 2014 and August 26, 2015 FINDINGS: There are bilateral emphysematous changes. Bilateral postsurgical changes are grossly stable. There is a stable 2 mm nodule within the anterior right lung base. There is a stable subpleural 4.6 mm nodule within the left lower lobe as well. There are calcifications of the coronary arteries. There is a grossly stable pericardial effusion. Normal mediastinum. Normal hilar regions. Normal unenhanced pulmonary arteries. There is atherosclerotic calcification of the aortic arch and descending thoracic aorta. Normal osseous structures. The limited images of the upper abdomen demonstrate stable well-circumscribed low-attenuation foci within the visualized liver that likely reflect underlying cysts. There is a stable low-attenuation nodule within the right adrenal gland that likely reflects underlying adenoma. CT/Chest without Contrast IMPRESSION: Emphysema. Bilateral postsurgical changes. Atherosclerosis. Stable right adrenal adenoma. Stable hepatic cysts. Grossly stable pericardial effusion. Electronically Signed: Rachael Mcarthur MD at 19:07 EDT Tel , Service support ,
== END ==
PROVIDERS: Family Provider Family Medicine; PCP Family Medicine; Referring Provider Internal Medicine Pulmonary Disease; Visit Provider Internal Medicine Pulmonary Disease
DX: J44.9 Chronic obstructive pulmonary disease, unspecified (principal); Z85.118 Personal history of other malignant neoplasm of bronchus and lung
CPT/HCPCS: 71250

== ENCOUNTER → 2018-09-12 | Outpatient (CLI) | payer MEDICARE, BC, SELFPAY ==
[2018-04-13 01:38] VITALS: BMI 26.2
[2018-09-12 15:00] LABS: Absolute Lymphocyte Count 1.53 X10^3/ul (0.83-4.51); Absolute Neutrophil Count 2.6 X10^3/uL (2.0-7.7); Basophil# 0.05 X10^3/uL; Hematocrit 37.4 % (40-54); Hemoglobin 12.5 g/dl (13.0-16.5); Lymphocyte # 1.53 X10^3/ul (4.0); Lymphocyte % 30.5 % (19-41); Mean Corp Hgb Conc 33.4 g/gl (32-36); Mean Corpuscular Hgb 28.5 pg (27.0-32.0); Mean Corpuscular Volume 85.4 fL (80-94); Monocyte# 0.62 X10^3/uL; Monocyte% 12.4 % (0-10); Neutrophil % 51.9 % (47-70); Platelet Count 221 K/mm3 (150-450); RBC Distribution Width SD 40.6 fl (35.1-43.9); Red Blood Count 4.38 M/mm3 (4.6-6.2)
[2018-09-12 15:02] LABS: POSITIVE COUNT NO; POSITIVE DIFFERENTIAL NO; POSITIVE MORPHOLOGY NO
== END | disposition home or self-care (01) ==
LOC: LABSPEC 14:17
PROVIDERS: Family Provider Family Medicine; PCP Family Medicine; Referring Provider Internal Medicine Pulmonary Disease; Visit Provider Internal Medicine Pulmonary Disease
DX: J44.9 Chronic obstructive pulmonary disease, unspecified (principal)
CPT/HCPCS: 36415; 85025

== ENCOUNTER 2018-10-10 19:37 | Inpatient (IN) | payer MEDICARE, BC, SELFPAY ==
[2018-04-13 01:38] VITALS: BMI 26.2
[2018-10-10 19:42] VITALS: BP 143/75; PULSE 99; RESP 19; TEMP 36.6; O2SAT 97; BMI 26.9
[2018-10-10 19:53] VITALS: PULSE 102
--- NOTE | 2018-10-10 19:55 | EKG12_ITS ---
Test Reason : WEAKNESS Blood Pressure : / mmHG Vent. Rate : 099 BPM Atrial Rate : 099 BPM P-R Int : 144 ms QRS Dur : 092 ms QT Int : 348 ms P-R-T Axes : 090 079 074 degrees QTc Int : 446 ms Normal sinus rhythm Normal ECG Confirmed by CORAZON STOUT, LIANG ([id number]), editorial director HEATHER PENA ([id number]) on 10/11/2018 1:47:08 PM Referred By: Anna Hamilton Confirmed By:LIANG CHANDRA MD
--- NOTE | 2018-10-10 19:57 | RAD_ITS ---
STUDY: X-RAY CHEST REASON FOR EXAM: Male, 78 years old. Cough and shortness of breath TECHNIQUE: AP port COMPARISON: April 12, 2018 FINDINGS: Chronic interstitial changes are seen in the lower lobes in association with emphysematous changes in the mid to upper lung zones.. There is no demonstrated pleural abnormality. Surgical clips are seen projecting over both upper lobes. There also appears to be a tiny calcified granuloma Normal size heart. Normal mediastinum and cinthya. Normal visualized pulmonary arteries. Mildly calcified aortic arch and descending thoracic aorta. Normal visualized thoracic spine. Normal visualized clavicles, and shoulders. Multiple old healed left rib fractures. There is no demonstrated abnormality of the visualized soft tissue structures of the upper abdomen. RAD/Chest 1 View (Portable) IMPRESSION: COPD and postsurgical changes. No acute cardiopulmonary pathology Electronically Signed: Jose Francisco Benito MD at 20:22 EDT , Service support ,
[2018-10-10 20:23] LABS: Absolute Lymphocyte Count 0.91 X10^3/ul (0.83-4.51); Absolute Neutrophil Count 3.2 X10^3/uL (2.0-7.7); Basophil# 0.04 X10^3/uL; Basophil% 0.8 % (0-1); Eosinophil# 0.13 X10^3/uL; Eosinophils% 2.7 % (0-5); Hematocrit 37.9 % (40-54); Hemoglobin 12.7 g/dl (13.0-16.5); Lymphocyte # 0.91 X10^3/ul (4.0); Lymphocyte % 19.1 % (19-41); Mean Corp Hgb Conc 33.5 g/gl (32-36); Mean Corpuscular Hgb 28.5 pg (27.0-32.0); Mean Corpuscular Volume 85.2 fL (80-94); Mean Platelet Vol. 9.5 fl (6.2-12.0); Monocyte# 0.52 X10^3/uL; Monocyte% 10.9 % (0-10); Neutrophil # 3.15 X10^3/uL (2.7-7.7); Neutrophil % 66.3 % (47-70); Platelet Count 226 K/mm3 (150-450); RBC Distribution Width CV 13.6 % (11.6-14.6); RBC Distribution Width SD 42.2 fl (35.1-43.9); Red Blood Count 4.45 M/mm3 (4.6-6.2); White Blood Count 4.8 K/mm3 (4.4-11.0)
[2018-10-10 20:25] LABS: POSITIVE COUNT NO; POSITIVE DIFFERENTIAL NO; POSITIVE MORPHOLOGY NO
[2018-10-10 20:42] LABS: ALB/GLOB Ratio 1.2 RATIO (0.9-2.4); AST(SGOT) 17 U/L (15-37); Alanine Aminotransfer ALT/SGPT 17 U/L (16-61); Albumin, Serum 3.6 g/dL (3.2-5.0); Alkaline Phosphatase 106 U/L (45-117); Anion Gap 4 (5-15); BUN 17 mg/dL (7-18); Calcium,Total 8.8 mg/dL (8.5-10.1); Chloride 107 mmol/L (98-107); Creatinine, Serum 1.42 mg/dL (0.70-1.30); EST Glomerular Filtration Rate 51 mL/min (>60); Est Glom Filt Rate - Afr Amer 62 mL/min (>60); Estimated Creatinine Clearance 37.44 ml/min; Globulin 3.1 g/dL (2.2-4.2); Glucose 143 mg/dL (74-106); Potassium 4.3 mmol/L (3.5-5.1); Protein, Total 6.7 g/dL (6.4-8.2); Sodium Level 139 mmol/L (136-145)
[2018-10-10 20:50] VITALS: PULSE 103; RESP 20
[2018-10-10] MEDS: Ipratropium/Albuterol Sulfate 3 ML AMPUL.NEB INHALATION (20:50)
[2018-10-10 20:54] LABS: Bacteria 0 SEEN /hpf (None Seen); Mucous, Urine 0 SEEN /hpf (<or=2+); Red Blood Cells-Urine 0 SEEN /hpf (0-5); White Blood Cells 0 SEEN /hpf (0-5)
[2018-10-10 21:04] LABS: Color, Urine Yellow (Yellow); Glucose, Dipstick Normal (Normal); Ketone-Dipstick Negative (Negative); Leukocyte Esterase-Dipstick Negative /ul (Negative); Nitrite-Dipstick Negative (Negative); Occult Blood-Urine 10 /ul (Negative); Protein-Dipstick Negative (Negative); Specific Gravity, Urine 1.005 (1.002-1.030); Urine Bilirubin Dipstick Negative (Negative); Urine Clarity Clear (Clear); Urine Urobilinogen Normal (Normal)
--- NOTE | 2018-10-10 21:08 | ED.VIS.GEN ---
History of Present Illness Chief Complaint: Weakness Informant: Patient Onset: Today Context: Gradual Onset Timing: Continuous Current Severity: Moderate Maximum Severity: Moderate Narrative: The patient presents to the emergency department with a vague constellation of symptoms. He states he was in his normal state of health today. He states shortly thereafter, he began to feel like my legs were heavy. He states that he is constantly short of breath. He denies any fevers or chills. He denies any chest pain. He states this is how he felt prior to having his stent. He is been compliant with his medications. He does admit to increased stress and anxiety at home. He denies any nausea or vomiting. He denies any headaches. He denies any recent falls. He states that she is very hard to explain how he feels. Past Medical History - Allergies and Home Meds Allergies/Adverse Reactions: Allergies gabapentin Allergy (Unknown, Verified 10/10/18 19:50) Unknown acetylcysteine [From Mucomyst] Allergy (Verified 10/10/18 19:50) Shortness of breath alprazolam [From Xanax] Allergy (Verified 10/10/18 19:50) breathing issues belladonna alkaloids Allergy (Verified 10/10/18 19:50) Unknown cephalexin Allergy (Verified 10/10/18 19:50) Unknown ciprofloxacin [From Cipro] Allergy (Verified 10/10/18 19:50) Unknown dicyclomine Allergy (Verified 10/10/18 19:50) Unknown diltiazem Allergy (Verified 10/10/18 19:50) Unknown doxycycline Allergy (Verified 10/10/18 19:50) Shortness of breath ezetimibe Allergy (Verified 10/10/18 19:50) Unknown fluvastatin Allergy (Verified 10/10/18 19:50) Unknown metoprolol [From Toprol XL] Allergy (Verified 04/12/18 21:15) Unknown nitrofurantoin Allergy (Verified 10/10/18 19:50) Unknown phenobarbital Allergy (Verified 10/10/18 19:50) Unknown prochlorperazine [From Compazine] Allergy (Verified 10/10/18 19:50) Unknown simvastatin [From Zocor] Allergy (Verified 10/10/18 19:50) Unknown Embzxbi-Xjc-Azn Reductase Inhibitor Allergy (Verified 10/10/18 19:50) Unknown sulfamethoxazole [From Bactrim] Allergy (Verified 10/10/18 19:50) Unknown tamsulosin [From Flomax] Allergy (Verified 10/10/18 19:50) Unknown trimethoprim [From Bactrim] Allergy (Verified 10/10/18 19:50) Unknown carvedilol Adverse Reaction (Verified 10/10/18 19:50) Vomiting Primary Care Physician: Dutch Lee III, MD [Primary Care Provider] - Prior records reviewed: Yes Surgical History: - - lung reduction surgery and cancer removal.cath with stent 11-12 years ago. Cardiac stenting in 2001 Lives: With Family Smoking Status: Former smoker Alcohol: None Drugs: None - Family History Maternal Family History: Reports: Hypertension Additional Family History: Heart failure Paternal Family History: Reports: - - father was a smoker with copd Additional Family History: COPD Review of Systems General: Reports: Malaise Eyes: Denies: Visual changes - bilaterally, Diplopia ENT: Denies: Rhinorrhea, Sore throat Cardiovascular: Denies: Chest pain, Palpitations Respiratory: Denies: Dyspnea, Cough, Dyspnea on exertion Gastrointestinal: Denies: Abdominal pain, Nausea, Vomiting, Diarrhea, Melena, Hematochezia Genitourinary: Denies: Dysuria, Hematuria, Frequency Musculoskeletal: Reports: Arthralgias Skin: Denies: Rash, Wounds Neurological: Denies: Headache, Weakness, Numbness Psych: Denies: Depression Endocrine: Denies: Polyuria Physical Exam Vital Signs/Narrative: Vital Signs Temp Pulse Resp BP Pulse Ox 10/10/18 19:53 102 H 10/10/18 19:42 97.8 F 99 19 H 143/75 H 97 Inital Vital Signs reviewed: Yes General: Well nourished, Well developed, No Acute Distress Head: Normocephalic, Atraumatic Eyes: Perrl, EOMI ENT: Moist mucous membranes, No rhinorrhea Neck: Supple, Nontender Cardiovascular: Regular rate, Regular rhythm, No murmurs Respiratory: No distress, Chest nontender, Wheezing Abdomen: Soft, Nontender, Nondistended, Normal bowel sounds Back: Nontender, Normal Inspection Extremities: Nontender, No edema Skin: Normal color, No rash Neurological: Alert, Oriented x3, Cranial nerves II-XII grossly intact, Normal Strength, Normal Sensation Psychological: Normal affect, Normal Mood Diagnostic/Tx/Re-eval Chest X-Ray - ED: 1 View, Chronic Changes, No Infiltrates Clinical Impression(s) from Imaging Studies Chest X-Ray 10/10/18 19:57 IMPRESSION: COPD and postsurgical changes. No acute cardiopulmonary pathology Electronically Signed: Jose Francisco Benito MD at 20:22 EDT , Service support , Abnormal Lab Results 10/10/18 10/10/18 10/10/18 20:04 20:04 20:45 WBC 4.8 RBC 4.45 L Hgb 12.7 L Hct 37.9 L MCV 85.2 MCH 28.5 MCHC 33.5 RDW 13.6 RDW Differential 42.2 Plt Count 226 MPV 9.5 Immature Gran % (Auto) 0.200 Neut % (Auto) 66.3 Lymph % (Auto) 19.1 [place] % (Auto) 10.9 H Eos % (Auto) 2.7 Baso % (Auto) 0.8 Absolute Neuts (auto) 3.2 Absolute Lymphs (auto) 0.91 Total Counted Not Reportable Sodium 139 Potassium 4.3 Chloride 107 Carbon Dioxide 28.0 Anion Gap 4 L BUN 17 Creatinine 1.42 H Estim Creat Clear Calc 37.44 Est GFR (MDRD) Af Amer 62 Est GFR (MDRD) Non-Af 51 L BUN/Creatinine Ratio 12.0 Glucose 143 H Calcium 8.8 Total Bilirubin 0.30 AST 17 ALT 17 Alkaline Phosphatase 106 Troponin I < 0.015 Total Protein 6.7 Albumin 3.6 Globulin 3.1 Albumin/Globulin Ratio 1.2 Urine Color Yellow Urine Clarity Clear Urine pH 7.0 Ur Specific [place] 1.005 Urine Protein Negative Urine Glucose (UA) Normal Urine Ketones Negative Urine Occult Blood 10 H Urine Nitrite Negative Urine Bilirubin Negative Urine Urobilinogen Normal Ur Leukocyte Esterase Negative Urine RBC 0 SEEN Urine WBC 0 SEEN Ur Squamous Epith Cells 0-5 SEEN Urine Bacteria 0 SEEN Urine Mucus 0 SEEN - Rhythm Strip Rhythm Strip: Sinus Rhythm Rate: 98 Ectopy: None - EKG Initial EKG Interpretation: Sinus Rhythm, No Acute Injury Pattern Prior: Unchanged - Medical Decision Making Patient presents to the emergency department with a constellation of symptoms. His biggest symptom is exertional dyspnea. He been wheezing all lung arteaga. He is also concerned because this is how he felt prior to having his heart catheterization. His EKG was obtained which did not show any acute ischemia. His cardiac enzymes are normal. X-ray shows evidence of chronic change from COPD, but no focal infiltrative process. The patient was given a nebulized breathing treatment steroids. He was feeling improved, but was still having exertional dyspnea. I do feel that the safest pain of care would be overnight observation for COPD exacerbation and atypical chest pain. The family is comfortable with this plan of care. ED Disposition - Plan for ED Patient: Referrals: Dutch Lee III, MD [Primary Care Provider] -
[2018-10-10 21:11] LABS: Squamous Epithelial Cells - UA 0-5 SEEN /hpf (0-5)
[2018-10-10] MEDS: MethylPREDNISolone 125 MG/2 ML Vial IV (21:53)
--- NOTE | 2018-10-10 22:34 | ED.RN ---
PT STOOD BESIDE BED TO GET URINE SAMPLE, BECAME SHORT OF BREATH, TACHYPNEIC, STARTED YELLING HELP ME, HELP ME. PT STATED HE COULDN'T MOVE, THIS RN LIFTED PT AND PUT BACK IN BED. HEART RATE 130-140'S, SPO2 93% ON ROOM AIR DURING EPISODE. MD AWARE. BREATHING TX GIVEN.
--- NOTE | 2018-10-10 22:41 | HP.PCM_ITS ---
Problem List (1) Chest pain Status: Acute (2) Normochromic normocytic anemia Status: Acute (3) Chronic renal failure, stage 2 (mild) Status: Chronic (4) Anxiety disorder Status: Chronic Comment: with panic attacks (5) COPD (chronic obstructive pulmonary disease) Status: Chronic (6) H/O heart artery stent Status: Chronic (7) History of coronary angioplasty Status: Chronic (8) Type II diabetes mellitus Status: Chronic (9) CARLIN (obstructive sleep apnea) Status: Chronic (10) History of malignant neoplasm of lung Status: Chronic Comment: in 2010? (11) History of lobectomy of lung Status: Chronic Comment: BL upper lobes (12) BPH (benign prostatic hyperplasia) Status: Chronic (13) GERD (gastroesophageal reflux disease) Status: Chronic (14) Former smoker Status: Chronic Comment: quit in the early History of Present Illness Date of Admission: 10/10/18 Chief Complaint: SOB followed by CP The patient is a 78 year old M with a past medical history of lung cancer diagnosed somewhere between 2008 in 2010, partial lobectomy bilateral upper lobes, CARLIN, anxiety with panic attacks, BPH, GERD, coronary artery disease with history of stent placement in 1998, COPD and remote smoking history (quit 30 years ago) who presented to the emergency department at [facility] on 10/10/2018 complaining of episodic shortness of breath recently followed by chest pain. He stated he just don't feel well. The CP is located on the left side and it is not pleuritic. It lasts a few minutes. It does not radiate and he denied diaphoresis. He is not a good historian. The nurse stated when he stood to urinate that his HR went up and he got very anxious and his legs got weak. He told me that he feels as though he is walking on air tonight. He also complains that his legs have been swelling. He denies calf pain and has never had DVT. Vital signs at presentation to the emergency room were temperature 97.8, pulse rate 99, blood pressure 143/75, respiratory rate 19 and he was 97% saturated on room air. White blood cell count is within normal limits with an unremarkable differential. Hemoglobin is low at 12.7 with normochromic normocytic indices and a normal RDW. Platelet count is within normal limits. BMP is remarkable for an elevated creatinine at 1.42 but this is within his baseline the past 2 years. Random blood sugar was elevated at 143. Troponin was less than 0.015. LFTs are unremarkable. Urine had 0 WBCs per high-power field. Theophylline level was 4.1. EKG showed normal sinus rhythm with no suspicious ST or T wave changes. Chest x-ray shows no infiltrates, pleural effusions or pulmonary vascular congestion. There are number of wendy in the bilateral upper lobes. He is being admitted to a monitored bed on PCU for serial cardiac enzymes and a stress test in the a.m. if these are negative. We will do a chemical nuclear stress test. Past Medical History Past Medical History (Chronic Problems): Chronic Problems Chronic renal failure, stage 2 (mild) (Chronic) CARLIN (obstructive sleep apnea) (Chronic) History of malignant neoplasm of lung (Chronic) in 2010? 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 BPH (benign prostatic hyperplasia) (Chronic) GERD (gastroesophageal reflux disease) (Chronic) Former smoker (Chronic) quit in the early Anxiety disorder (Chronic) with panic attacks COPD (chronic obstructive pulmonary disease) (Chronic) History of coronary angioplasty (Chronic) Type II diabetes mellitus (Chronic) H/O heart artery stent (Chronic) Allergies gabapentin Allergy (Unknown, Verified 10/10/18 19:50) Unknown acetylcysteine [From Mucomyst] Allergy (Verified 10/10/18 19:50) Shortness of breath alprazolam [From Xanax] Allergy (Verified 10/10/18 19:50) breathing issues belladonna alkaloids Allergy (Verified 10/10/18 19:50) Unknown cephalexin Allergy (Verified 10/10/18 19:50) Unknown ciprofloxacin [From Cipro] Allergy (Verified 10/10/18 19:50) Unknown dicyclomine Allergy (Verified 10/10/18 19:50) Unknown diltiazem Allergy (Verified 10/10/18 19:50) Unknown doxycycline Allergy (Verified 10/10/18 19:50) Shortness of breath ezetimibe Allergy (Verified 10/10/18 19:50) Unknown fluvastatin Allergy (Verified 10/10/18 19:50) Unknown metoprolol [From Toprol XL] Allergy (Verified 04/12/18 21:15) Unknown nitrofurantoin Allergy (Verified 07/08/19 19:50) Unknown phenobarbital Allergy (Verified 10/10/18 19:50) Unknown prochlorperazine [From Compazine] Allergy (Verified 10/10/18 19:50) Unknown simvastatin [From Zocor] Allergy (Verified 10/10/18 19:50) Unknown Dxxhonb-Xjn-Zrv Reductase Inhibitor Allergy (Verified 10/10/18 19:50) Unknown sulfamethoxazole [From Bactrim] Allergy (Verified 10/10/18 19:50) Unknown tamsulosin [From Flomax] Allergy (Verified 10/10/18 19:50) Unknown trimethoprim [From Bactrim] Allergy (Verified 10/10/18 19:50) Unknown carvedilol Adverse Reaction (Verified 10/10/18 19:50) Vomiting Home Medications: Ambulatory Orders Medication Instructions Recorded Aspirin [Aspirin, Baby] 81 mg PO DAILY@0800 11/13/15 Budesonide/Formoterol 160/4.5 2 puff INHALATION BID 11/13/15 [Symbicort 160/4.5 Mcg Inhaler (SP)] Doxazosin Mesylate [Cardura] 4 mg PO QHS 11/13/15 Finasteride [Proscar] 5 mg PO DAILY 11/13/15 Mirtazapine [Remeron] 30 mg PO QHS 11/13/15 Omeprazole [Prilosec] 20 mg PO DAILY 11/13/15 Theophylline [Kevin-Dur] 300 mg PO BID 11/13/15 prednisoLONE eye drops (1 mL) 1 drop RIGHT EYE 4X/DAY PRN PRN 11/13/15 [Pred Forte eye drops (1 mL)] Guaifenesin [Mucinex] 1,200 mg PO BID PRN 07/29/17 Albuterol Inhaler [Ventolin Hfa] 1 - 2 puff INHALATION Q4H PRN PRN 08/26/17 #1 inhaler Lorazepam [Ativan] 1 mg PO BID #60 tab 08/26/17 Ipratropium/Albuterol Sulfate 3 ml INHALATION 4X/DAY PRN 03/11/18 [Duoneb] Nitroglycerin (INPATIENT USE) 0.4 mg SUBLINGUAL Q5M PRN 03/11/18 [Nitrostat] Roflumilast [Daliresp] 500 mcg PO DAILY 03/11/18 Azithromycin 250 mg PO DAILY 10/10/18 Furosemide [Lasix] 20 mg PO QWEEK PRN 10/10/18 Surgical History: - - lung reduction surgery and cancer removal.cath with stent 11-12 years ago. Cardiac stenting in 2001 Psychiatric History: Anxiety - With panic attacks Lives: Spouse/ Significant Other Smoking Status: Former smoker - Quit smoking 30 years ago in the late 80s/early s Tobacco Use: Non-smoker Alcohol: None Drugs: None - *Family History Maternal History Items: Hypertension Paternal History Items: - - father was a smoker with copd Review of Systems Constitutional: Reports: Malaise, Weakness. Denies: Chills, Fever, Weight Change HEENT: Denies: Head Aches, Sinus Congestion, Sinus Drainage, Sore Throat Cardiovascular: Reports: Chest Pain. Denies: Light Headedness, Orthopnea, Palpitations, Syncope Respiratory: Reports: Shortness of Breath - Chronic with intermittent increased SOB followed by CP not associated with exertion.. Denies: Cough, Shortness of breath at rest, Sputum production Gastrointestinal: Denies: Abdominal Pain, Nausea, Vomiting Genitourinary: Denies: Dysuria Musculoskeletal: Denies: Joint Pain, Joint Tenderness Skin: Denies: Rash, Wounds Neurological: Denies: Focal weakness, Numbness, Tingling, Seizures Psychiatric: Denies: Anxiety, Depression, Homicidal Ideations, Suicidal Ideations Hematologic/ Lymphatic: Denies: Easy Bruising, Easy Bleeding, Hx of blood clot VTE Information - Inpt Only VTE Present on Admission: No VTE Mechan Device Prophylaxis: SCD's, Knee High RAMAKRISHNA Hose VTE Pharm Prophylaxis ordered?: Yes Patient Problems: Active and Suspected Problems Chest pain (Acute) Normochromic normocytic anemia (Acute) - Physical Exam Vital Signs Temp Pulse Resp BP Pulse Ox 97.8 F 103 H 20 H 143/75 H 97 10/10/18 19:42 10/10/18 20:50 10/10/18 20:50 10/10/18 19:42 10/10/18 19:42 Oxygen Delivery Method Room Air Weight: 166 lb 7.184 oz Body Mass Index (BMI) 26.9 Laboratory Tests Past 24 Hrs 10/10/18 10/10/18 10/10/18 20:04 20:04 20:45 WBC 4.8 RBC 4.45 L Hgb 12.7 L Hct 37.9 L MCV 85.2 MCH 28.5 MCHC 33.5 RDW 13.6 RDW Differential 42.2 Plt Count 226 MPV 9.5 Immature Gran % (Auto) 0.200 Neut % (Auto) 66.3 Lymph % (Auto) 19.1 [place] % (Auto) 10.9 H Eos % (Auto) 2.7 Baso % (Auto) 0.8 Absolute Neuts (auto) 3.2 Absolute Lymphs (auto) 0.91 Total Counted Not Reportable Sodium 139 Potassium 4.3 Chloride 107 Carbon Dioxide 28.0 Anion Gap 4 L BUN 17 Creatinine 1.42 H Estim Creat Clear Calc 37.44 Est GFR (MDRD) Af Amer 62 Est GFR (MDRD) Non-Af 51 L BUN/Creatinine Ratio 12.0 Glucose 143 H Calcium 8.8 Total Bilirubin 0.30 AST 17 ALT 17 Alkaline Phosphatase 106 Troponin I < 0.015 Total Protein 6.7 Albumin 3.6 Globulin 3.1 Albumin/Globulin Ratio 1.2 Urine Color Yellow Urine Clarity Clear Urine pH 7.0 Ur Specific [place] 1.005 Urine Protein Negative Urine Glucose (UA) Normal Urine Ketones Negative Urine Occult Blood 10 H Urine Nitrite Negative Urine Bilirubin Negative Urine Urobilinogen Normal Ur Leukocyte Esterase Negative Urine RBC 0 SEEN Urine WBC 0 SEEN Ur Squamous Epith Cells 0-5 SEEN Urine Bacteria 0 SEEN Urine Mucus 0 SEEN Assessment/Plan All Active Problems Chest pain (Acute) Normochromic normocytic anemia (Acute) Impressions 1. Atypical chest pain with episodic shortness of breath - EKG in the Er is normal however, he was not having CP at the time the EKG was done. 2. History of coronary artery disease with PTCA/stent approximately 20 years ago 3. History of lung cancer with bilateral partial lobectomy in the past-follows with Dr. Hernandes 4. Obstructive sleep apnea 5. GERD 6. BPH 7. Anxiety with panic attacks 8. Former smoker 9. Bilateral lower extremity edema 10. COPD Admit to a monitored bed on PCU ASA 81 mg PO daily Nitropaste 0.5 inches every 6 hours SL NTG 0.4 mg PRN chest pain Serial Cardiac Enzymes Stat EKG PRN CP Chest XRAY Chemical nuclear stress test in the AM if the cardiac enzymes are negative DVT prophylaxis ordered Check a theophylline level He needs to get established with [facility] since Dr. Rubio has recently retired Code Visit OBSV E&M: [id number] Initial observation care L3
[2018-10-10 22:54] VITALS: BP 160/83; PULSE 91; RESP 16; O2SAT 97
--- NOTE | 2018-10-10 23:53 | EKG12_ITS ---
Test Reason : CP ADMIT Blood Pressure : / mmHG Vent. Rate : 101 BPM Atrial Rate : 101 BPM P-R Int : 150 ms QRS Dur : 092 ms QT Int : 344 ms P-R-T Axes : 092 082 080 degrees QTc Int : 446 ms Sinus tachycardia Otherwise normal ECG When compared with ECG of 14-APR-2018 07:05, Premature atrial complexes are no longer Present Confirmed by FRANDY THOMAS ([id number]), web editor HAETHER PENA ([id number]) on 10/13/2018 2:00:54 PM Referred By: Ruby Hamilton Confirmed By:FRANDY THOMAS
[2018-10-10 23:55] VITALS: BMI 24.6
[2018-10-10 23:56] VITALS: BP 162/86; PULSE 99; RESP 18; TEMP 36.7; O2SAT 96
[2018-10-11] VITALS (20 sets, daily range): BP systolic 117–162; BP diastolic 69–78; PULSE 84–121; RESP 17–22; TEMP 36.6–36.8; O2SAT 93–99; BMI 24.5
[2018-10-11] MEDS: Albuterol 2.5 MG/3 ML VIAL.NEB. INHALATION ×7 (00:44→22:50)
[2018-10-11] MEDS: Budesonide Respules 0.5 MG/2 ML AMPUL.NEB. INHALATION ×2 (00:44→12:04)
[2018-10-11 01:26] LABS: Theophylline (Aminophylline) 4.1 ug/mL (10.0-20.0)
[2018-10-11] MEDS: Doxazosin 4 MG Tablet PO (01:49)
--- NOTE | 2018-10-11 02:36 | ECHOD_ITS ---
Reason For Study: CHEST PAIN Procedure This was a 2D Doppler, Color Flow transthoracic echocardiogram. The study was technically difficult. Exam performed in department. Left Ventricle Normal LV size. Left ventricular systolic function is normal. The estimated ejection fraction is 70 %. Diastolic function is indeterminate. No regional wall motion abnormalities noted. Right Ventricle Normal RV size. Normal systolic function. Atria Normal left atrium. Normal right atrium. No doppler evidence for ASD. Mitral Valve There is no mitral annular calcification. Anterior leaflet diffuse mitral valve thickening. Trivial mitral valve insufficiency. Tricuspid Valve Normal tricuspid valve. Trivial tricuspid valve insufficiency. Unable to estimate RV systolic pressure/pulmonary artery pressure due to technically difficult study. Aortic Valve Trisinus/trileaflet aortic valve. Mild diffuse aortic valve thickening. Mild diffuse aortic valve calcification. Pulmonic Valve The pulmonic valve is not well visualized. Great Vessels The aortic root is not well visualized. Pericardium/Pleural Small pericardial effusion. There are no echocardiographic indications of cardiac tamponade. MMode/2D Measurements & Calculations LVIDd: 4.5 cm IVSd: 0.73 cm LVOT diam: 2.0 cm LVIDs: 3.0 cm LVPWd: 0.77 cm LVOT area: 3.3 cm2 RVDd: 3.6 cm FS: 33.6 % LAV(MOD-bp): 56.6 ml LA A4 area: 18.2 cm2 RA A4 area: 15.9 cm2 LAV(MOD-bp) Indexed: 31.1 ml/m2 LAV(MOD-sp2): 50.8 ml LAV(MOD-sp4): 57.1 ml Doppler Measurements & Calculations MV E max ronnie: 51.0 cm/sec Lat Peak E' Ronnie: 6.9 cm/sec Med Peak E' Ronnie: 6.2 cm/sec MV A max ronnie: 98.9 cm/sec E/E' lat: 7.4 E/E' med: 8.2 MV E/A: 0.52 Ao V2 max: 135.6 cm/sec LV V1 max: 83.6 cm/sec PA V2 max: 118.3 cm/sec Ao max P.4 mmHg LV V1 max P.8 mmHg COREY(V,D): 2.0 cm2 Interpretation Summary The study was technically difficult. Left ventricular systolic function is normal. The estimated ejection fraction is 70 %. Anterior leaflet diffuse mitral valve thickening. Trivial mitral valve insufficiency. Trivial tricuspid valve insufficiency. Mild diffuse aortic valve thickening. Mild diffuse aortic valve calcification. Small pericardial effusion. There are no echocardiographic indications of cardiac tamponade. Unable to estimate RV systolic pressure/pulmonary artery pressure due to technically difficult study. Diastolic function is indeterminate. Comment: C/W the previous TTE of 08/25/2017 there are similar type changes. Ordering Physician: Anna Hamilton Referring Physician: FEROZ BAE Performed By: Nona Joseph RDCS, RVT
[2018-10-11] MEDS: Ipratropium/Albuterol Sulfate 3 ML AMPUL.NEB INHALATION (04:32)
[2018-10-11 05:13] LABS: Prothrombin Time (Protime)PT. 13.1 SECONDS (11.7-14.9)
[2018-10-11 05:14] LABS: Partial Thromboplast Time 28.9 Seconds (24.1-36.2)
[2018-10-11 05:17] LABS: Absolute Neutrophil Count 2.8 X10^3/uL (2.0-7.7); Basophil# 0.02 X10^3/uL; Basophil% 0.6 % (0-1); Eosinophil# 0.01 X10^3/uL; Eosinophils% 0.3 % (0-5); Hematocrit 40.9 % (40-54); Hemoglobin 13.7 g/dl (13.0-16.5); Lymphocyte % 9.4 % (19-41); Mean Corp Hgb Conc 33.5 g/gl (32-36); Mean Corpuscular Hgb 27.9 pg (27.0-32.0); Mean Corpuscular Volume 83.3 fL (80-94); Monocyte# 0.03 X10^3/uL; Monocyte% 0.9 % (0-10); Neutrophil # 2.82 X10^3/uL (2.7-7.7); Neutrophil % 88.8 % (47-70); Platelet Count 248 K/mm3 (150-450); RBC Distribution Width CV 13.5 % (11.6-14.6); RBC Distribution Width SD 40.4 fl (35.1-43.9); Red Blood Count 4.91 M/mm3 (4.6-6.2); White Blood Count 3.2 K/mm3 (4.4-11.0)
[2018-10-11 05:30] LABS: Differential Indicated SCAN CRITERIA MET; POSITIVE COUNT NO; POSITIVE DIFFERENTIAL YES; POSITIVE MORPHOLOGY NO
[2018-10-11 05:36] LABS: Anion Gap 8 (5-15); BUN 20 mg/dL (7-18); BUN/Creat Ratio 15.6 RATIO (10-20); Calcium,Total 9.2 mg/dL (8.5-10.1); Chloride 107 mmol/L (98-107); Creatinine, Serum 1.28 mg/dL (0.70-1.30); EST Glomerular Filtration Rate 57 mL/min (>60); Est Glom Filt Rate - Afr Amer 69 mL/min (>60); Estimated Creatinine Clearance 43.03 ml/min; Glucose 209 mg/dL (74-106); Potassium 4.8 mmol/L (3.5-5.1); Sodium Level 140 mmol/L (136-145)
[2018-10-11] MEDS: Aspirin 81 MG TAB.CHEW PO (05:51)
[2018-10-11] MEDS: LORazepam 1 MG Tablet PO ×3 (05:51→21:42)
[2018-10-11] MEDS: guaiFENesin 1,200 MG Tablet 1200 MG PO ×2 (06:03→20:03)
[2018-10-11 06:13] LABS: Differential Comment SCANNED
[2018-10-11 08:56] LABS: Hemoglobin A1c 6.3 % (4.2-6.3)
--- NOTE | 2018-10-11 10:00 | CASEMGMT ---
Patient has a Healthcare POA and Healthcare LW on file at [facility]. 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
[2018-10-11] MEDS: Finasteride 5 MG Tablet PO (10:46)
[2018-10-11] MEDS: Nitroglycerin Oint 1 INCH PACKET 0.5 INCH TRANSDERM. ×3 (10:46→20:03)
--- NOTE | 2018-10-11 12:44 | PCM.PN.HOSP ---
Patient Problems: Active and Suspected Problems Chest pain (Acute) Normochromic normocytic anemia (Acute) Subjective: Patient seen and examined. He was admitted with a complaint of chest pain. Chest pain has resolved but he now complains of lower extremity swelling which is he has been going on since spring. He denies any lightheadedness or dizziness or palpitation, shortness of breath, diarrhea vomiting. Review of systems otherwise negative. Labs and vitals reviewed. Vitals/I&O's: Vital Signs Temp Pulse Resp BP Pulse Ox 97.8 F 109 H 20 H 137/69 H 95 10/11/18 10:43 10/11/18 12:04 10/11/18 12:04 10/11/18 10:43 10/11/18 12:04 Oxygen Flow Rate (L/min) 1 Oxygen Delivery Method Room Air Weight: 156 lb 15.506 oz Body Mass Index (BMI) 24.5 Intake and Output for Last 24 Hours 10/09/18 10/10/18 10/11/18 23:59 23:59 23:59 Intake Total 60 / 60 Balance 60 / 60 General: Alert, Oriented x3, Cooperative, No apparent distress HEENT: Atraumatic Oral: Moist Mucosa Neck: Supple, No JVD, Negative Carotid Bruits Lungs: Clear to auscultation, Normal air movement, No rhonchi, No wheeze, No rales Cardiovascular: Regular rate, Regular Rhythm, Normal S1, Normal S2, No murmurs Abdomen: Bowel Sounds Present, Soft, Non Tender, Non-Distended Extremities: No clubbing, No cyanosis, Edema - mild pitting bipedal edema Skin: No rashes, No breakdown Musculoskeletal: No Tenderness to Palpation of Joints or Extremities Lymphatic: No Cervical, Supraclavicular, or Inguinal Adenopathy Neurological: Cranial nerves II-XII grossly intact, Neuro grossly intact, Motor Exam 5/5 strength throughout Psych/Mental Status: Normal Affect, Appropriate, Alert and oriented to time, place, person, mood and affect Laboratory Results 10/10/18 20:04: WBC 4.8, RBC 4.45 L, Hgb 12.7 L, Hct 37.9 L, MCV 85.2, MCH 28.5, MCHC 33.5, RDW 13.6, RDW Differential 42.2, Plt Count 226, MPV 9.5, Immature Gran % (Auto) 0.200, Neut % (Auto) 66.3, Lymph % (Auto) 19.1, [place] % (Auto) 10.9 H, Eos % (Auto) 2.7, Baso % (Auto) 0.8, Absolute Neuts (auto) 3.2, Absolute Lymphs (auto) 0.91, Total Counted Not Reportable 10/10/18 20:04: Sodium 139, Potassium 4.3, Chloride 107, Carbon Dioxide 28.0, Anion Gap 4 L, BUN 17, Creatinine 1.42 H, Estim Creat Clear Calc 37.44, Est GFR (MDRD) Af Amer 62, Est GFR (MDRD) Non-Af 51 L, BUN/Creatinine Ratio 12.0, Glucose 143 H, Calcium 8.8, Total Bilirubin 0.30, AST 17, ALT 17, Alkaline Phosphatase 106, Troponin I < 0.015, Total Protein 6.7, Albumin 3.6, Globulin 3.1, Albumin/Globulin Ratio 1.2 10/10/18 20:04: Theophylline 4.1 L 10/10/18 20:04: Hemoglobin A1c 6.3 10/10/18 20:45: Urine Color Yellow, Urine Clarity Clear, Urine pH 7.0, Ur Specific [place] 1.005, Urine Protein Negative, Urine Glucose (UA) Normal, Urine Ketones Negative, Urine Occult Blood 10 H, Urine Nitrite Negative, Urine Bilirubin Negative, Urine Urobilinogen Normal, Ur Leukocyte Esterase Negative, Urine RBC 0 SEEN, Urine WBC 0 SEEN, Ur Squamous Epith Cells 0-5 SEEN, Urine Bacteria 0 SEEN, Urine Mucus 0 SEEN 10/11/18 00:36: Troponin I 0.046 H 10/11/18 04:50: Sodium 140, Potassium 4.8, Chloride 107, Carbon Dioxide 25.0, Anion Gap 8, BUN 20 H, Creatinine 1.28, Estim Creat Clear Calc 43.03, Est GFR (MDRD) Af Amer 69, Est GFR (MDRD) Non-Af 57 L, BUN/Creatinine Ratio 15.6, Glucose 209 H, Calcium 9.2, Troponin I 0.019 10/11/18 04:50: WBC 3.2 L, RBC 4.91, Hgb 13.7, Hct 40.9, MCV 83.3, MCH 27.9, MCHC 33.5, RDW 13.5, RDW Differential 40.4, Plt Count 248, MPV 10.0, Immature Gran % (Auto) 0.000, Neut % (Auto) 88.8 H, Lymph % (Auto) 9.4 L, [place] % (Auto) 0.9, Eos % (Auto) 0.3, Baso % (Auto) 0.6, Absolute Neuts (auto) 2.8, Absolute Lymphs (auto) 0.30 L, Total Counted Not Reportable, Differential Comment SCANNED, Diff Path Review August10/11/18 04:50: PT 13.1, INR 1.0, APTT 28.9 Diagnostic Data Chest X-Ray 10/10/18 19:57 IMPRESSION: COPD and postsurgical changes. No acute cardiopulmonary pathology Electronically Signed: Jose Francisco Benito MD at 20:22 EDT , Service support , Current Medications Acetaminophen (Tylenol) 650 mg PO Q6H PRN PRN PRN Reason: Mild pain 1-3/Temp > 100.7 F Albuterol Sulfate (Ventolin Aerosols) 2.5 mg INHALATION Q4HWA.RT [facility] Albuterol Sulfate (Ventolin Aerosols) 2.5 mg INHALATION Q2H PRN PRN PRN Reason: sob/wheezing. Aspirin (Aspirin, Baby) 81 mg PO DAILY@0800 [facility] Last Admin: 10/11/18 05:51 Dose: 81 mg Documented by: Budesonide (Pulmicort Aerosol) 0.5 mg INHALATION Q12H.RT [facility] Last Admin: 10/11/18 12:04 Dose: 0.5 mg Documented by: Doxazosin Mesylate (Cardura) 4 mg PO QHS [facility] Last Admin: 10/11/18 01:49 Dose: 4 mg Documented by: Finasteride (Proscar) 5 mg PO DAILY [facility] Last Admin: 10/11/18 10:46 Dose: 5 mg Documented by: Guaifenesin (Mucinex) 1,200 mg PO BID PRN PRN PRN Reason: CONGESTION Last Admin: 10/11/18 06:03 Dose: 1,200 mg Documented by: Lorazepam (Ativan) 1 mg PO BID [facility] Last Admin: 10/11/18 05:51 Dose: 1 mg Documented by: Mirtazapine (Remeron) 30 mg PO QHS [facility] Nitroglycerin (Nitrostat) 0.4 mg SUBLINGUAL Q5M PRN PRN Reason: Chest Pain Nitroglycerin (Nitrobid) 0.5 inch TRANSDERM. Q6H [facility] Last Admin: 10/11/18 10:46 Dose: 0.5 inch Documented by: Nutritional Formula (Lactose Free) (Ensure Enlive) 120 ml PO 4X/DAY [facility] Last Admin: 10/11/18 10:45 Dose: Not Given Documented by: Ondansetron HCl (Zofran) 4 mg IV Q8H PRN PRN PRN Reason: NAUSEA/VOMITING Prednisolone Acetate (Pred Forte Eye Drops (5 Ml)) 1 drop RIGHT EYE 4X/DAY PRN PRN PRN Reason: Dry Eye Sodium Chloride () 10 - 40 ml IV UD PRN PRN Reason: SALINE FLUSH Theophylline (Kevin-Dur) 300 mg PO BID [facility] Last Admin: 10/11/18 05:52 Dose: 300 mg Documented by: Medical Necessity - Tobacco Use Smoking Status: Former smoker - Quit smoking 30 years ago in the late 80s/early 90s Tobacco Use: Non-smoker Assessment/Plan All Active Problems Chest pain (Acute) Normochromic normocytic anemia (Acute) 1. Chest pain r/o ACS Chest pain has resolved. Troponins x3 were negative and EKG showed no acute ST changes. On aspirin and SL nitroglycerin. stress test done, results pending Patient however still remains tachycardic and tachypneic. Theophylline held. WIll Monitor. 2. History of CAD s.p stents: stable. 3. Anxiety with panic attacks: On Ativan 1 mg twice daily. 4. Bilateral LE edema Comes planes of swelling in his lower extremities since spring. Lasix. Will consider increasing Lasix dose as patient states this makes him very uncomfortable. 5. History of lung cancer status post bilateral partial lobectomy: Stable. Follows with Dr. Hernandes. Breathing treatments. 6. COPD: Breathing treatments. Stable. Will hold theophylline for now due to patient being tachycardic. Theophylline level was low. 7. BPH: Finasteride DVT prophylaxis: will start Lovenox Code Visit OBSV E&M: 46230 Subsequent observation care L2
--- NOTE | 2018-10-11 13:52 | STRESSREP ---
Stress Test Report Date: 10-11-18 Procedure: Pharmacologic stress nuclear imaging study Indications: Chest pain; CAD; PCI Consent: Per the patient Procedure: The patient underwent pharmacologic (Regadenoson) evaluation with a peak heart rate of 120 beats per minute (85 %predicted maximal heart rate) and a peak blood pressure of 146/80 mmHg. The baseline ECG demonstrated normal sinus rhythm. The peak pharmacologic ECG demonstrated no obvious ECG changes. There was a rare PVC pretest, during infusion, and recovery. There was no complaint of chest discomfort during pharmacologic infusion or recovery. The examination was discontinued secondary to completion of protocol. Impression: 1. Pharmacologic (Regadenoson) evaluation 2. Peak pharmacologic ECG with no obvious ECG changes. 3. There was a rare PVC pretest, during infusion, and recovery. 4. Nuclear images pending Myocardial perfusion imaging study: Technique: The patient was injected with 11.8 millicuries of technetium 99m Cardiolite and subsequently rest SPECT Cardiolite nuclear imaging was obtained in the horizontal long, vertical long, and short axis views. The patient underwent pharmacologic (Regadenoson) evaluation with a peak heart rate of 120 beats per minute (85 % percent predicted maximal heart rate) and a peak blood pressure of 146/80 mmHg. The patient was injected with 33.9 millicuries of technetium 99m Cardiolite and subsequently stress SPECT Cardiolite nuclear imaging was obtained in the horizontal long, vertical long, and short axis views. A gated Cardiolite study at peak stress was obtained. Interpretation: Rest and stress SPECT Cardiolite nuclear imaging status post realignment, normalization, and attenuation correction demonstrate the appearance of diminished tracer uptake in portions of the mid towards distal anterior segments status post stress. There is end systolic thickening and brightening. The gated Cardiolite study demonstrates myocardial thickening and inward wall motion. The reported LVEF is 59 %. Impression: 1. Rest and stress SPECT current nuclear imaging demonstrate the appearance of diminished tracer uptake in portions of the mid to distal anterior segment status post stress concerning for an area of stress-induced myocardial ischemia. 2. The gated Cardiolite study reports an LVEF of 59 %. This note was generated with iVideosongsation software. It may contain incorrect words, spelling, and punctuation that were not noted in checking the note before signing.
[2018-10-11] MEDS: Enoxaparin 40 MG/0.4 ML Syringe SC (17:05)
[2018-10-11] MEDS: Pantoprazole Sodium 20 MG Tablet PO (17:38)
--- NOTE | 2018-10-11 20:22 | CPS ---
PATIENT INCREASED TO 3 LPM DUE TO SOB. PATIENTS NURSE AWARE.
--- NOTE | 2018-10-11 20:31 | PCM.CONS.C ---
Problem List (1) Chest pain Status: Acute (2) Abnormal stress test Status: Acute (3) CAD in [place] artery Status: Chronic (4) H/O heart artery stent Status: Chronic (5) Type II diabetes mellitus Status: Chronic (6) COPD (chronic obstructive pulmonary disease) Status: Chronic Reason for Consult Date of Consultation: 10/11/18 History of Present Illness: The patient is a 78 year old white male with a past medical history of CAD status post PCI who is referred for evaluation of chest pain and an abnormal dermatologic stress nuclear imaging study. The patient states that he began to feel uncomfortable in his chest. He knows he did not feel well or right. He states these were feelings that he had prior to his previous PCI procedure. He has chronic shortness of breath and dyspnea secondary to his prominent COPD and thus is always short of breath. He states he has intermittent exacerbations of his shortness of breath. He notes that he does not wear oxygen at home but he does wear a CPAP device at home. He has had no ongoing nausea, emesis, or diaphoresis. He does not recall any loss of consciousness spells. He states he becomes very anxious easily because of his feelings of shortness of breath and dyspnea. Because of his concerns he presented to the hospital for further evaluation. He underwent cardiac enzyme evaluation which was considered the indeterminate troponin I level. His ECG demonstrated sinus rhythm/sinus tachycardia. He also underwent noninvasive studies with a transthoracic echocardiogram and a pharmacologic stress nuclear imaging study. The results of which are as noted below. Based upon the results of his pharmacologic stress nuclear imaging study he was referred for further evaluation with cardiovascular consultation for consideration for diagnostic cardiac catheterization. [] Past Medical History Allergies/Adverse Reactions: Allergies gabapentin Allergy (Unknown, Verified 10/10/18 19:50) Unknown acetylcysteine [From Mucomyst] Allergy (Verified 10/10/18 19:50) Shortness of breath alprazolam [From Xanax] Allergy (Verified 10/10/18 19:50) breathing issues belladonna alkaloids Allergy (Verified 10/10/18 19:50) Unknown cephalexin Allergy (Verified 10/10/18 19:50) Unknown ciprofloxacin [From Cipro] Allergy (Verified 10/10/18 19:50) Unknown dicyclomine Allergy (Verified 10/10/18 19:50) Unknown diltiazem Allergy (Verified 10/10/18 19:50) Unknown doxycycline Allergy (Verified 10/10/18 19:50) Shortness of breath ezetimibe Allergy (Verified 10/10/18 19:50) Unknown fluvastatin Allergy (Verified 10/10/18 19:50) Unknown metoprolol [From Toprol XL] Allergy (Verified 04/12/18 21:15) Unknown nitrofurantoin Allergy (Verified 10/10/18 19:50) Unknown phenobarbital Allergy (Verified 10/10/18 19:50) Unknown prochlorperazine [From Compazine] Allergy (Verified 10/10/18 19:50) Unknown simvastatin [From Zocor] Allergy (Verified 10/10/18 19:50) Unknown Mjafcfs-Mef-Mbu Reductase Inhibitor Allergy (Verified 10/10/18 19:50) Unknown sulfamethoxazole [From Bactrim] Allergy (Verified 10/10/18 19:50) Unknown tamsulosin [From Flomax] Allergy (Verified 10/10/18 19:50) Unknown trimethoprim [From Bactrim] Allergy (Verified 10/10/18 19:50) Unknown carvedilol Adverse Reaction (Verified 10/10/18 19:50) Vomiting Home Medications: Ambulatory Orders Medication Instructions Recorded Aspirin [Aspirin, Baby] 81 mg PO DAILY@0800 11/13/15 Budesonide/Formoterol 160/4.5 2 puff INHALATION BID 11/13/15 [Symbicort 160/4.5 Mcg Inhaler (SP)] Doxazosin Mesylate [Cardura] 4 mg PO QHS 11/13/15 Finasteride [Proscar] 5 mg PO DAILY 11/13/15 Mirtazapine [Remeron] 30 mg PO QHS 11/13/15 Omeprazole [Prilosec] 20 mg PO DAILY 11/13/15 Theophylline [Kevin-Dur] 300 mg PO BID 11/13/15 prednisoLONE eye drops (1 mL) 1 drop RIGHT EYE 4X/DAY PRN PRN 11/13/15 [Pred Forte eye drops (1 mL)] Guaifenesin [Mucinex] 1,200 mg PO BID PRN 07/29/17 Albuterol Inhaler [Ventolin Hfa] 1 - 2 puff INHALATION Q4H PRN PRN 08/26/17 #1 inhaler Lorazepam [Ativan] 1 mg PO BID #60 tab 08/26/17 Ipratropium/Albuterol Sulfate 3 ml INHALATION 4X/DAY PRN 03/11/18 [Duoneb] Nitroglycerin (INPATIENT USE) 0.4 mg SUBLINGUAL Q5M PRN 03/11/18 [Nitrostat] Roflumilast [Daliresp] 500 mcg PO DAILY 03/11/18 Azithromycin 250 mg PO DAILY 10/10/18 Furosemide [Lasix] 20 mg PO QWEEK PRN 10/10/18 Past Medical History (Chronic Problems): Chronic Problems Chronic renal failure, stage 2 (mild) (Chronic) CARLIN (obstructive sleep apnea) (Chronic) History of malignant neoplasm of lung (Chronic) in 2010? 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 BPH (benign prostatic hyperplasia) (Chronic) GERD (gastroesophageal reflux disease) (Chronic) Former smoker (Chronic) quit in the early CAD in [place] artery (Chronic) Anxiety disorder (Chronic) with panic attacks COPD (chronic obstructive pulmonary disease) (Chronic) History of coronary angioplasty (Chronic) Type II diabetes mellitus (Chronic) H/O heart artery stent (Chronic) Surgical History: - - lung reduction surgery and cancer removal.cath with stent 11-12 years ago. Cardiac stenting in 2001 Psychiatric History: Anxiety - With panic attacks - *Family History Maternal History Items: Hypertension Paternal History Items: - - father was a smoker with copd Lives: Spouse/ Significant Other Smoking Status: Former smoker - Quit smoking 30 years ago in the late s/early Tobacco Use: Non-smoker Alcohol: None Drugs: None Review of Systems - Review of Systems General: Denies: Fever, Night Sweats, Fatigue Cardiovascular: Reports: Chest Discomfort, Chest Discomfort at Rest, Chest Discomfort with Exertion, Shortness of Breath, Shortness of Breath at Rest, Shortness of Breath with Exertion. Denies: Orthopnea, PND, Peripheral Edema, Palpitations, Lightheadedness, Dizziness, Near Syncope, Syncope Respiratory: Reports: Shortness of Breath. Denies: Cough, Sputum Production, Hemoptysis Gastrointestinal: Denies: Hematemesis, Hematochezia, Melena Genitourinary: Denies: Dysuria, Hematuria Skin: Denies: Rash Subjectve: This is an 78-year-old white male who appears somewhat anxious and chronically short of breath and dyspneic. Objective: Vital Signs Temp Pulse Resp BP Pulse Ox 98.2 F 108 H 18 117/78 96 10/11/18 20:16 10/11/18 20:16 10/11/18 20:16 10/11/18 20:16 10/11/18 20:16 Oxygen Flow Rate (L/min) 2 Oxygen Delivery Method Nasal Cannula Weight: 156 lb 15.506 oz Body Mass Index (BMI) 24.5 Intake and Output for Last 24 Hours 10/09/18 10/10/18 10/11/18 23:59 23:59 23:59 Intake Total 1185 / 1185 Balance 1185 / 1185 General: Awake, Alert, Oriented x 3, Cooperative, No Acute Distress HEENT: Atraumatic, Normocephalic, PERRL, EOMI, Sclera Non Icteric Oral: Moist Mucosa Neck: Supple, Good ROM, No JVD Lungs: Diminished Demetrius Bases Cardiovascular: Regular Rhythm, Normal S1, Normal S2 - Distant heart tones Vascular: R Carotid Artery Bruits Abdomen: Bowel Sounds Present, Soft, Non Tender Extremities: No Cyanosis, No Clubbing, Trace RLE Edema, Trace LLE Edema Neurological: No Focal Motor or Sensory Deficit Psych/Mental Status: Appropriate 10/10/18 20:04: Sodium 139, Potassium 4.3, Chloride 107, Carbon Dioxide 28.0, Anion Gap 4 L, BUN 17, Creatinine 1.42 H, Est GFR (MDRD) Af Amer 62, Est GFR (MDRD) Non-Af 51 L, BUN/Creatinine Ratio 12.0, Glucose 143 H, Calcium 8.8, Total Bilirubin 0.30, Troponin I < 0.015 10/10/18 20:04: Hemoglobin A1c 6.3 10/10/18 20:45: Urine Color Yellow, Urine Clarity Clear, Urine pH 7.0, Ur Specific [place] 1.005, Urine Protein Negative, Urine Glucose (UA) Normal, Urine Ketones Negative, Urine Occult Blood 10 H, Urine Nitrite Negative, Urine Bilirubin Negative, Urine Urobilinogen Normal, Ur Leukocyte Esterase Negative, Urine RBC 0 SEEN, Urine WBC 0 SEEN 10/11/18 00:36: Troponin I 0.046 H 10/11/18 04:50: Sodium 140, Potassium 4.8, Chloride 107, Carbon Dioxide 25.0, Anion Gap 8, BUN 20 H, Creatinine 1.28, Est GFR (MDRD) Af Amer 69, Est GFR (MDRD) Non-Af 57 L, BUN/Creatinine Ratio 15.6, Glucose 209 H, Calcium 9.2, Troponin I 0.019 10/11/18 04:50: WBC 3.2 L, RBC 4.91, Hgb 13.7, Hct 40.9, MCV 83.3, MCH 27.9, MCHC 33.5, RDW 13.5, RDW Differential 40.4, Plt Count 248, MPV 10.0, Immature Gran % (Auto) 0.000, Neut % (Auto) 88.8 H, Lymph % (Auto) 9.4 L, [place] % (Auto) 0.9, Eos % (Auto) 0.3, Baso % (Auto) 0.6, Absolute Neuts (auto) 2.8, Total Counted Not Reportable 10/11/18 04:50: PT 13.1, INR 1.0, APTT 28.9 Rhythm: Sinus rhythm/sinus tachycardia EKG: Sinus rhythm/sinus tachycardia ECHO: Interpretation Summary The study was technically difficult. Left ventricular systolic function is normal. The estimated ejection fraction is 70 %. Anterior leaflet diffuse mitral valve thickening. Trivial mitral valve insufficiency. Trivial tricuspid valve insufficiency. Mild diffuse aortic valve thickening. Mild diffuse aortic valve calcification. Small pericardial effusion. There are no echocardiographic indications of cardiac tamponade. Unable to estimate RV systolic pressure/pulmonary artery pressure due to technically difficult study. Diastolic function is indeterminate. Comment: C/W the previous TTE of 08/25/2017 there are similar type changes. Stress Test: Date: 10-11-18 Procedure: Pharmacologic stress nuclear imaging study Indications: Chest pain; CAD; PCI Consent: Per the patient Procedure: The patient underwent pharmacologic (Regadenoson) evaluation with a peak heart rate of 120 beats per minute (85 %predicted maximal heart rate) and a peak blood pressure of 146/80 mmHg. The baseline ECG demonstrated normal sinus rhythm. The peak pharmacologic ECG demonstrated no obvious ECG changes. There was a rare PVC pretest, during infusion, and recovery. There was no complaint of chest discomfort during pharmacologic infusion or recovery. The examination was discontinued secondary to completion of protocol. Impression: 1. Pharmacologic (Regadenoson) evaluation 2. Peak pharmacologic ECG with no obvious ECG changes. 3. There was a rare PVC pretest, during infusion, and recovery. 4. Nuclear images pending Myocardial perfusion imaging study: Technique: The patient was injected with 11.8 millicuries of technetium 99m Cardiolite and subsequently rest SPECT Cardiolite nuclear imaging was obtained in the horizontal long, vertical long, and short axis views. The patient underwent pharmacologic (Regadenoson) evaluation with a peak heart rate of 120 beats per minute (85 % percent predicted maximal heart rate) and a peak blood pressure of 146/80 mmHg. The patient was injected with 33.9 millicuries of technetium 99m Cardiolite and subsequently stress SPECT Cardiolite nuclear imaging was obtained in the horizontal long, vertical long, and short axis views. A gated Cardiolite study at peak stress was obtained. Interpretation: Rest and stress SPECT Cardiolite nuclear imaging status post realignment, normalization, and attenuation correction demonstrate the appearance of diminished tracer uptake in portions of the mid towards distal anterior segments status post stress. There is end systolic thickening and brightening. The gated Cardiolite study demonstrates myocardial thickening and inward wall motion. The reported LVEF is 59 %. Impression: 1. Rest and stress SPECT current nuclear imaging demonstrate the appearance of diminished tracer uptake in portions of the mid to distal anterior segment status post stress concerning for an area of stress-induced myocardial ischemia. 2. The gated Cardiolite study reports an LVEF of 59 %. CXR: Preliminary evaluation: Findings compatible with COPD and postoperative changes; please see official report Assessment/Plan 1. Chest pain The patient seems to have some difficulty describing his chest discomfort. He knows that some uncomfortable sensation, and uneasy sensation, and a sensation he had similar to his previous PCI. He has been undergoing evaluation. He has had a mildly indeterminate troponin I level. His ECG is demonstrated no acute changes. However his pharmacologic stress nuclear imaging study did raise concerns as noted above. The present time he will continue to be monitored. He can continue medical management for his underlying CAD. This will include aspirin and antiplatelets. He may need nitrates. He apparently has allergies to beta-blockers and statins. He should be considered for further evaluation with diagnostic cardiac catheterization. The procedure risk were discussed with him. He was agreeable to this approach. 2. Abnormal stress nuclear imaging study He does have an abnormal stress nuclear imaging study as described above. This does raise concern over his underlying CAD process. Thus he will undergo further evaluation and care as described above. 3. CAD status post PCI The details of his previous cardiac catheterization and PCI are unavailable at this time for review. He does not recall whether he has had a subsequent cardiac catheterization performed. At the moment he will continue evaluation care as noted above. He will continue medical therapy as he is able based on his multiple medication intolerances. 4. Diabetes mellitus He will continue the care of internal medicine. 5. COPD He does have a long-standing history of COPD. He is undergone medical therapy and lung reduction therapy. He follows with Dr. Hernandes of pulmonology. This note was generated using a voice recognition system and there may be incorrect words, spelling or punctuation that were not noted when reviewing the office note prior to saving.
[2018-10-11] MEDS: Clopidogrel Bisulfate 300 MG Tablet PO (21:42)
[2018-10-11] MEDS: Mirtazapine 30 MG Tablet PO (21:43)
--- NOTE | 2018-10-11 21:56 | CPS ---
patient recieved prn treatment by patient request due to shortness of breath.
--- NOTE | 2018-10-11 21:57 | CPS ---
patients oxygen not weaned at time of visit due to patient stating he was short of breath.
[2018-10-12] VITALS (34 sets, daily range): BP systolic 97–157; BP diastolic 54–97; PULSE 77–117; RESP 12–19; TEMP 36.4–37.1; O2SAT 91–100; BMI 24.4
[2018-10-12] MEDS: Doxazosin 4 MG Tablet PO ×2 (00:13→21:45)
[2018-10-12] MEDS: Nitroglycerin Oint 1 INCH PACKET 0.5 INCH TRANSDERM. ×4 (02:34→21:44)
[2018-10-12] MEDS: Albuterol 2.5 MG/3 ML VIAL.NEB. INHALATION ×7 (02:48→23:03)
[2018-10-12 05:07] LABS: Absolute Lymphocyte Count 1.46 X10^3/ul (0.83-4.51); Absolute Neutrophil Count 3.2 X10^3/uL (2.0-7.7); Basophil# 0.03 X10^3/uL; Basophil% 0.5 % (0-1); Eosinophil# 0.14 X10^3/uL; Eosinophils% 2.5 % (0-5); Hematocrit 35.2 % (40-54); Hemoglobin 11.8 g/dl (13.0-16.5); Lymphocyte # 1.46 X10^3/ul (4.0); Lymphocyte % 26.4 % (19-41); Mean Corp Hgb Conc 33.5 g/gl (32-36); Mean Corpuscular Hgb 28.4 pg (27.0-32.0); Mean Corpuscular Volume 84.6 fL (80-94); Mean Platelet Vol. 9.8 fl (6.2-12.0); Monocyte# 0.73 X10^3/uL; Monocyte% 13.2 % (0-10); Neutrophil # 3.16 X10^3/uL (2.7-7.7); Neutrophil % 57.2 % (47-70); Platelet Count 226 K/mm3 (150-450); RBC Distribution Width CV 13.7 % (11.6-14.6); RBC Distribution Width SD 41.7 fl (35.1-43.9); Red Blood Count 4.16 M/mm3 (4.6-6.2); White Blood Count 5.5 K/mm3 (4.4-11.0)
[2018-10-12 05:10] LABS: International Normalized Ratio 1.1; Prothrombin Time (Protime)PT. 13.8 SECONDS (11.7-14.9)
[2018-10-12 05:11] LABS: Partial Thromboplast Time 29.2 Seconds (24.1-36.2)
[2018-10-12 05:14] LABS: POSITIVE COUNT NO; POSITIVE DIFFERENTIAL NO; POSITIVE MORPHOLOGY NO
[2018-10-12 05:21] LABS: Anion Gap 8 (5-15); BUN 20 mg/dL (7-18); BUN/Creat Ratio 18.5 RATIO (10-20); Calcium,Total 8.6 mg/dL (8.5-10.1); Chloride 109 mmol/L (98-107); Creatinine, Serum 1.08 mg/dL (0.70-1.30); EST Glomerular Filtration Rate 70 mL/min (>60); Est Glom Filt Rate - Afr Amer 85 mL/min (>60); Glucose 116 mg/dL (74-106); Potassium 3.6 mmol/L (3.5-5.1); Sodium Level 144 mmol/L (136-145)
[2018-10-12] MEDS: Clopidogrel Bisulfate 75 MG Tablet PO (05:38)
[2018-10-12] MEDS: Finasteride 5 MG Tablet PO (05:38)
[2018-10-12] MEDS: LORazepam 1 MG Tablet PO ×2 (05:38→19:18)
[2018-10-12] MEDS: 0.9% NaCl Peripheral Flush Adult/Peds IV (05:41)
[2018-10-12] MEDS: Aspirin 81 MG TAB.CHEW PO (05:43)
--- NOTE | 2018-10-12 05:59 | CPS ---
PATIENT REQUEST AEROSOL TREATMENT AT TIME OF VISIT DUE TO SOB.
[2018-10-12 09:10] LABS: ACT Activated Clotting Time 197 sec (74-137)
--- NOTE | 2018-10-12 09:23 | EKG12_ITS ---
Test Reason : AM Blood Pressure : / mmHG Vent. Rate : 101 BPM Atrial Rate : 101 BPM P-R Int : 148 ms QRS Dur : 094 ms QT Int : 336 ms P-R-T Axes : 090 082 071 degrees QTc Int : 435 ms Sinus tachycardia with occasional Premature ventricular complexes Otherwise normal ECG When compared with ECG of 11-OCT-2018 00:33, MANUAL COMPARISON REQUIRED, DATA IS UNCONFIRMED Confirmed by CARMEN STOUT, CHAYITO ([id number]), sports editor HEATHER PENA ([id number]) on 10/14/2018 12:43:04 PM Referred By: Ruby Hamilton Confirmed By:LEAH MORALES MD
--- NOTE | 2018-10-12 09:29 | CL.I_ITS ---
Patient Name: NIESHA SHUKLA Study Date: 10/12/2018 Performing: Kvng Esquivel MD Ht: 66.92 inches 170 cm : 1940 Wt: 156.53 lbs 71 kg Age: 78 Gender: male BSA: 1.82 PROCEDURE(S) PERFORMED [id number] W OR WO PTCA, SINGLE CORONARY ARTERY [id number] W OR WO PTCA, EACH ADD'L ARTERY, SAME MAJOR [id number] W OR WO PTCA, SINGLE CORONARY ARTERY CLINICAL PROFILE AND CO-MORBIDITIES Indications: Suspected CAD, Other, New Onset Angina <= 2 months, Worsening Angina, Stable Known C AD Heart Failure: None Stress/Imaging Date: 10/11/2018 Stress Test with SPECT MPI: Positive Angina Classification Anginal Classification w/in 2 Weeks: CCS III CAD Presentations: Unstable angina. Comorbidities/Risk Factors: Hypertension Dyslipidemia Prior PCI CONCLUSIONS Successful PTCA/TAMI of proximal DIAG#1 with a 2.25 x 16 Promus Synergy, 75%-->0%, no dissection. Successful PTCA/TAMI proximal LAD with a 2.5 x 12 Promus Synergy, post dilated with a 3.0 x 8 NC in pr oximal portion of stent only; 75%-->0%, no dissection. Successful PTCA/TAMI mid LCX with a 2.5 x 38 Promus Synergy stent, post dilated throughout with a 2.5 x 12 NC Balloon; 75%-->0%, no dissection or plaque shift into OM#1. RECOMMENDATIONS Highly recommend quitting all tobacco products Follow up with primary network diagnostic support specialist Risk factor modification ASA Indefinitley Plavix for at least 12 months Routine post interventional care Refer for Outpatient Cardiac Rehab Manual sheath removal per protocol Follow up with Dr. Duarte Elective PCI of RCA in 3 weeks. Manual sheath removal as pt is too thin for closure. DESCRIPTION OF PROCEDURE The patient arrived to the procedure lab. The risks and benefits of the procedure as well as a full d escription of our services here and current unavailability of surgical backup were fully explained to the patient and/or their significant other prior to the catheterization. The Timeout was completed, verifying the correct patient and procedure. The patient's procedural site was prepped and draped in the usual fashion. Local anesthetic was given subcutaneously to right groin region with Lidocaine 2% Using a modified Seldinger technique,arterial access was obtained via the right femoral artery, a 4Fr sheath was inserted Left Coronary Artery selective angiography was performed in multiple views using a 4 Fr. JL5 catheter. Right Coronary Artery selective angiography was then performed in multiple vie ws using a 4 Fr. 3DRC catheter. Left Ventriculography was performed in MATHIS projection using a 4 Fr. P igtail catheter. LV to AO pullback pressures were then recorded.The images were reviewed and options discussed. A decision was then made to proceed with an Intervention, IVUS or other adjunc t procedure. Arterial sheath was exchanged for a 6 Fr 55cm Sheath. EBU 3.75 Guide catheter was inserted and en gaged into the LCA. [employer] [place] Guide wire was advanced to the Diag 1. emerge 2.0 x [address] was inserted. Balloon catheter was advanced across lesion in the first diagonal, proximal. Angiog lizz performed pre balloon dilatation. PTCA balloon inflated at 6 atms for 9 secs. PTCA balloon inflat ed at 6 atms for 7 secs. Balloon catheter was repositioned to additional lesion in the LAD, proximal. PTCA balloon inflated at 8 atms for 7 secs. Angiogram performed post balloon dilatation. Balloon cat heter was repositioned to additional lesion in the first diagonal, proximal. PTCA balloon inflated at 6 atms for 6 secs. PTCA balloon inflated at 6 atms for 6 secs. Angiogram performed post balloon dila tation. Synergy 2.25 x 16 Drug Eluting stent was inserted. Drug Eluting stent was advanced across the lesion in the first diagonal, proximal. Angiogram performed pre stent deployment. Angiogram performed post stent deployment. Synergy 2.5 x 12 Drug Eluting stent was inserted. Drug Elu ting stent was advanced across the lesion in the LAD, proximal. Angiogram performed pre stent deploym ent. Angiogram performed post stent deployment. NC Emerge 3.0 x 8 Balloon catheter was inserted. Ball oon catheter was advanced across lesion in the LAD, proximal. Angiogram performed post balloon dilata tion. Guide wire was repositioned to the OM Emerge 2.0 x 8 Balloon catheter was inserted. Balloon cat heter was advanced across lesion in the circumflex, mid. PTCA balloon inflated at 8 atms for 8 secs. PTCA balloon inflated at 10 atms for 10 secs. Balloon catheter was repositioned to additional lesion in the circumflex, proximal. PTCA balloon inflated at 12 atms for 9 secs. Angiogram performed post ba lloon dilatation. Synergy 2.5 x 38 Drug Eluting stent was inserted. Drug Eluting stent was advanced a cross the lesion in the circumflex, mid. Angiogram performed pre stent deployment. NC Emerge 3.0 x 8 Balloon catheter was inserted. NC Emerge 2.5 x 12 Balloon catheter was inserted. Ballo on catheter was advanced across lesion in the circumflex, mid. Balloon catheter was repositioned to a dditional lesion in the circumflex, proximal. Angiogram performed post balloon dilatation. Angiogram performed post balloon dilatation. The arterial sheath was exchanged to a standard 6fr sheath. The arterial sheath was sutured in place and capped INTERVENTION INFORMATION LESION SITE: 1st Diagonal (Proximal) Lesion Complexity: Non-High/Non-C, lesion at bifurcation: No, thrombus present: No, lesion length: 16 mm, culprit lesion: No Pre Stenosis: 75 % Pre intervention ARLIN flow: 3 PROCEDURE: Drug Eluting Stent with pre dilatation. Post Stenosis: 0 % Post intervention ARLIN flow: 3 Lesion Devices: Cole .014 [employer] [place] Straight 190cm Medtronic 6 Fr EBU3.75 100cm Guide Catheter Cook 6F 55cm Sheath José Miguel Sci EMERGE MR 2.00x08 BALLOON José Miguel Sci Synergy MR TAMI 2.25x16 LESION SITE: LAD (Proximal) Lesion Complexity: High/C, lesion at bifurcation: No, thrombus present: No, lesion length: 12 mm, cul prit lesion: Yes Pre Stenosis: 75 % Pre intervention ARLIN flow: 3 PROCEDURE: Drug Eluting Stent with pre and post dilatation Post Stenosis: 0 % Post intervention ARLIN flow: 3 Lesion Devices: Cole .014 [employer] [place] Straight 190cm Medtronic 6 Fr EBU3.75 100cm Guide Catheter Cook 6F 55cm Sheath José Miguel Sci EMERGE MR 2.00x08 BALLOON José Miguel Sci Synergy MR TAMI 2.50x12 José Miguel Sci NC EMERGE MR 3.00x08 BALLOON LESION SITE: Circumflex (Mid) Lesion Complexity: High/C, lesion at bifurcation: No, thrombus present: No, lesion length: 38 mm, cul prit lesion: No Pre Stenosis: 75 % Pre intervention ARLIN flow: 3 PROCEDURE: Drug Eluting Stent with pre and post dilatation 0 % Post intervention ARLIN flow: 3 Lesion Devices: Cole .014 [employer] [place] Straight 190cm Medtronic 6 Fr EBU3.75 100cm Guide Catheter Cook 6F 55cm Sheath José Miguel Sci EMERGE MR 2.00x08 BALLOON José Miguel Sci Synergy MR TAMI 2.50x38 José Miguel Sci NC EMERGE MR 2.50x12 BALLOON LESION SITE: Circumflex (Proximal) Lesion Devices: Cole .014 [employer] [place] Straight 190cm Medtronic 6 Fr EBU3.75 100cm Guide Catheter Cook 6F 55cm Sheath José Miguel Sci EMERGE MR 2.00x08 BALLOON José Miguel Sci Synergy MR TAMI 2.50x38 José Miguel Sci NC EMERGE MR 2.50x12 BALLOON COMPLICATIONS No Complications PROCEDURE MEDICATIONS Versed 0.5 mg IV Oxygen: 3 L/min via nasal cannula Heparin 6000 unit(s) IV 10/12/2018 08:22:59 Nitro 200 mcg IC 10/12/2018 08:31:00 Nitro 200 mcg IC 10/12/2018 08:31:00 Nitro 200 mcg IC 10/12/2018 08:47:58 IV Bolus: .9 NaCl 900ml total 10/12/2018 08:22:44 SUMMARY OF HEMODYNAMIC DATA Time AIR REST ECG 07:19:10 AO 104/72 (88) SA 07:58:48 LV 127/-11, 22 08:04:35 LV 129/-10, 20 08:04:43 LV 125/-5, 24 08:05:29 LV 124/-5, 24 08:05:35 LVp 123/-7, 18 08:05:42 AOp 125/60 (88) 08:05:47 09:24:25 Signed By Kvng Esquivel MD On 10/12/2018 09:28:26 Kvng Esquivel MD
[2018-10-12 09:47] LABS: Pathologist Review Reviewed
--- NOTE | 2018-10-12 09:51 | CL.D_ITS ---
Patient Name: NIESHA SHUKLA Study Date: 10/12/2018 Performing: Ko Duarte MD Ht: 66.92 inches 170 cm : 1940 Wt: 156.53 lbs 71 kg Age: 78 Gender: male BSA: 1.82 PROCEDURE(S) PERFORMED [id number] W OR WO PTCA, SINGLE CORONARY ARTERY [id number] W OR WO PTCA, EACH ADD'L ARTERY, SAME MAJOR [id number] W OR WO PTCA, SINGLE CORONARY ARTERY CLINICAL PROFILE AND INDICATIONS Indications: Suspected CAD, Other, New Onset Angina <= 2 months, Worsening Angina, Stable Known C AD Heart Failure: None Stress/Imaging Date: 10/11/2018Stress Test with SPECT MPI: Positive Angina Classification Anginal Classification w/in 2 Weeks: CCS III CAD Presentations: Unstable angina. Comorbidities/Risk Factors: Hypertension Dyslipidemia Prior PCI CONCLUSIONS Elevated Left Ventricular End Diastolic Pressure Normal LV size, wall motion,and systolic function LVEF: by LV gram 55 % [place] Multivessel CAD Mitral Valve Insufficiency Moderate RECOMMENDATIONS Risk factor modification Medical therapy Referred for immediate PCI DESCRIPTION OF PROCEDURE The patient arrived to the procedure lab. The risks and benefits of the procedure as well as a full d escription of our services here and current unavailability of surgical backup were fully explained to the patient and/or their significant other prior to the catheterization. The Timeout was completed, verifying the correct patient and procedure. The patient's procedural site was prepped and draped in the usual fashion. Local anesthetic was given subcutaneously to right groin region with Lidocaine 2%. Using a modified Seldinger technique, arterial access was obtained via the right femoral artery, a 4 Fr sheath was inserted Left Coronary Artery selective angiography was performed in multiple views us ing a 4 Fr. JL5 catheter. Right Coronary Artery selective angiography was then performed in multiple views using a 4 Fr. 3DRC catheter. Left Ventriculography was performed in MATHIS projection using a 4 Fr . Pigtail catheter. LV to AO pullback pressures were then recorded.The arterial sheath was exchanged to a standard 6fr sheath. The arterial sheath was sutured in place and capped CORONARY ANGIOGRAPHY DOMINANCE: Right Dominant LEFT HEART ASSESSMENT Left Ventricular Ejection Fraction: by LV Gram 55 % Normal LV wall motion Elevated Left Ventricular End Diastolic Pressure LVEDP: 20 mmHg LEFT MAIN: Mild calcification LEFT ANTERIOR DESCENDING ARTERY: PROX LAD: Mild calcification, 90 % Stenosis DIAGONAL 1: Proximal - 90 % Stenosis CIRCUMFLEX ARTERY: PROX CIRC: Mild calcification, 85 % Stenosis MID CIRC: 85 % Stenosis RIGHT CORONARY ARTERY: PROX RCA: Diffuse: 75 % Stenosis MID RCA: Previously placed stent has an instent 85 % restenosis RT PLV: Mild luminal irregularities RT PDA: Proximal - 25 - 50 % Stenosis RIGHT AV SEGMENT: Mild luminal irregularities VALVE FINDINGS: Normal Aortic Valve function Mitral Valve Insufficiency - Grade 2 AORTIC ROOT: Angiographically normal COMPLICATIONS No Complications PROCEDURE MEDICATIONS Versed 0.5 mg IV Oxygen: 3 L/min via nasal cannula Heparin 6000 unit(s) IV 10/12/2018 08:22:59 Nitro 200 mcg IC 10/12/2018 08:31:00 Nitro 200 mcg IC 10/12/2018 08:31:00 Nitro 200 mcg IC 10/12/2018 08:47:58 IV Bolus: .9 NaCl 900ml total 10/12/2018 08:22:44 SUMMARY OF HEMODYNAMIC DATA Time AIR REST ECG 07:19:10 AO 104/72 (88) SA 07:58:48 LV 127/-11, 22 08:04:35 LV 129/-10, 20 08:04:43 LV 125/-5, 24 08:05:29 LV 124/-5, 24 08:05:35 LVp 123/-7, 18 08:05:42 AOp 125/60 (88) 08:05:47 RM AIR REST 09:24:25 Signed By Ko Duarte MD On 10/12/2018 09:50:12 Ko Duarte MD
[2018-10-12] MEDS: Morphine 2 MG/ML Syringe IV (09:55)
[2018-10-12] MEDS: Acetaminophen 325 MG Tablet 650 MG PO (09:56)
[2018-10-12] MEDS: 0.9% Normal Saline 1,000 ML 150 ML IV (09:58)
--- NOTE | 2018-10-12 10:00 | EKG12_ITS ---
Test Reason : PCI Blood Pressure : / mmHG Vent. Rate : 092 BPM Atrial Rate : 092 BPM P-R Int : 140 ms QRS Dur : 090 ms QT Int : 352 ms P-R-T Axes : 087 087 089 degrees QTc Int : 435 ms Normal sinus rhythm Normal ECG No previous ECGs available Confirmed by CARMEN STOUT, CHAYITO ([id number]), research editor LAURA WONG ([id number]) on 10/14/2018 3:50:35 PM Referred By: Anna Hamilton Confirmed By:LEAH MORALES MD
[2018-10-12] MEDS: Losartan Potassium 25 MG Tablet PO (10:02)
--- NOTE | 2018-10-12 11:04 | CRPHASE1_ITS ---
Patient Communication PHII Cardiac Rehab Discussed with Patient:: Yes Guide to Cardiac Rehab Given to Patient:: Yes Cardiac Rehab Facility Choice List Given to Patient:: Yes - chooses [facility] Choice Program [facility] CR PHII:: Communication Given to CR, Refer to [facility] Choice Program Other:: Communication Given to CR, With permission faxed order and referral information Digital Traffic Coordinator:: Kvng Esquivel Refer Phase II Cardiac Rehab:: Yes Sessions:: 36 sessions - 3 days/wk, 12 weeks Risk Factors/Lifestyle Smoking Status: Former smoker Hx Diabetes Mellitus Type 2: Yes Height: 1.7 m Weight:: 70.76 kg BMI: 24.4 Past Cardiac Illness: Previous PCI w/Stent Laboratory Values: Cardiac Rehab Phase I Labs 6.3 % (4.2-6.3) 10/10/18 20:04 Phase I Education Given On:: Sisters, Nutrition, Antiplatelet medication, CHF, Smoking cessation, Diabetes - Type I, Diabetes - Type II Knowledge of Condition:: Yes Hospital Course Cardiac Cath Date:: 10/12/18 Medical/Surgical History Diabetes Type II:: Yes Renal:: Yes PTCA:: Yes Cardiac Rehabilitation Info Cardiac Rehabilitation Program Information: Cardiac Rehabilitation is important for patients like you who are recovering from a heart problem. Cardiac rehabilitation programs are recognized as integral to the continued care of the patient with coronary heart disease. The cardiac rehabilitation program is designed to optimize a patient's physical, psychological, and social functioning. Health professional healthcare representative work in cardiac rehabilitation programs and assist you with getting the treatments you need to get stronger and healthier - like exercise, healthy eating habits, and medications. Cardiac rehabilitation has been show to help people with heart problems live longer and have better life enjoyment than people who do not go to cardiac rehabilitation. Please contact the Cardiac Rehabilitation Program at [facility] at in two weeks if you have not heard from them.
--- NOTE | 2018-10-12 11:08 | CRPH1.INSTRU ---
General Education CAD and cardiac anatomy and function:: Patient communicates acknowledgment Explanation of diagnoses and procedures:: Patient communicates acknowledgment Sign/Symptoms of [place]:: Patient communicates acknowledgment Antiplatelet therapy: Patient communicates acknowledgment Proper use of NTG-SL: Not instructed Emergency procedures and activation of EMS: Patient communicates acknowledgment Compliance of all prescribed medications: Patient communicates acknowledgment Smoking Patient Nicotine/Smoking Risk Factors Are:: Non-smoker Nicotine/Smoking Response Code:: Patient communicates acknowledgment Dyslipidemia Dyslipidemia Response Code:: Patient communicates acknowledgment Overweight/Obesity Patient Overweight/Obesity Risk Factors Are:: BMI Normal [24-29 & > 65 years old] Overweight/Obesity:: Patient communicates acknowledgment Hypertension Hypertension:: Patient communicates acknowledgment Heart Disease Patient Heart Disease Risk Factors Are:: Previous cardiac event Heart Disease Response Code:: Patient communicates acknowledgment Diabetes Patient Diabetes Risk Factors Are:: Elevated blood sugars Diabetes:: Patient communicates acknowledgment Metabolic Syndrome Metabolic Syndrome Response Code:: Patient communicates acknowledgment Sedentary Sedentary Response Code:: Patient communicates acknowledgment Stress Stress Response Code:: Patient communicates acknowledgment
[2018-10-12 11:15] LABS: ACT Activated Clotting Time 153 sec (74-137)
--- NOTE | 2018-10-12 12:56 | PN_ITS ---
Patient Problems: Active and Suspected Problems Chest pain (Acute) Normochromic normocytic anemia (Acute) Abnormal stress test (Acute) Subjective: Patient seen and examined. He had cardiac cath this morning with stent placement in the proximal diagnonal artery, and proximal LAD, as well as mid circumflex arteries. Patient was transferred to the cardiac ICU afterwards. He had no complaints at time of review and denies any shortness of breath, chest pain, palpitations, dizziness, diarrhea vomiting. Review of systems otherwise negative. Labs and vitals reviewed. Vitals/I&O's: Vital Signs Temp Pulse Resp BP Pulse Ox 97.9 F 86 15 130/63 H 98 10/12/18 12:00 10/12/18 12:00 10/12/18 12:00 10/12/18 12:00 10/12/18 12:00 Oxygen Flow Rate (L/min) 2 Oxygen Delivery Method Nasal Cannula Weight: 156 lb Body Mass Index (BMI) 24.5 Intake and Output for Last 24 Hours 10/10/18 10/11/18 10/12/18 23:59 23:59 23:59 Intake Total 1305 / 1305 60 / 60 Output Total 325 / 325 Balance 1305 / 1305 -265 / -265 General: Alert, Oriented x3, Cooperative, No apparent distress HEENT: Atraumatic, PERRLA Oral: Moist Mucosa Neck: Supple, No JVD, Negative Carotid Bruits Lungs: Clear to auscultation, Normal air movement, No rhonchi, No wheeze, No rales Cardiovascular: Regular rate, Regular Rhythm, Normal S1, Normal S2, No murmurs Abdomen: Bowel Sounds Present, Soft, Non Tender, Non-Distended Extremities: No clubbing, No cyanosis, Edema - mild pitting bipedal edema Skin: No rashes, No breakdown Musculoskeletal: No Tenderness to Palpation of Joints or Extremities; clean dressing over sheath in right groin Lymphatic: No Cervical, Supraclavicular, or Inguinal Adenopathy Neurological: Cranial nerves II-XII grossly intact, Neuro grossly intact, Motor Exam 5/5 strength throughout Psych/Mental Status: Normal Affect, Appropriate, Alert and oriented to time, place, person, mood and affect Laboratory Results 10/11/18 04:50: Diff Path Review Reviewed 10/12/18 04:50: WBC 5.5, RBC 4.16 L, Hgb 11.8 L, Hct 35.2 L, MCV 84.6, MCH 28.4, MCHC 33.5, RDW 13.7, RDW Differential 41.7, Plt Count 226, MPV 9.8, Immature Gran % (Auto) 0.200, Neut % (Auto) 57.2, Lymph % (Auto) 26.4, [place] % (Auto) 13.2 H, Eos % (Auto) 2.5, Baso % (Auto) 0.5, Absolute Neuts (auto) 3.2, Absolute Lymphs (auto) 1.46, Total Counted Not Reportable 10/12/18 04:50: Sodium 144, Potassium 3.6, Chloride 109 H, Carbon Dioxide 27.0, Anion Gap 8, BUN 20 H, Creatinine 1.08, Estim Creat Clear Calc 51.00, Est GFR (MDRD) Af Amer 85, Est GFR (MDRD) Non-Af 70, BUN/Creatinine Ratio 18.5, Glucose 116 H, Calcium 8.6 10/12/18 04:50: PT 13.8, INR 1.1, APTT 29.2 10/12/18 09:02: Activated Clotting Time 197 H 10/12/18 11:03: Activated Clotting Time 153 H Diagnostic Data Chest X-Ray 10/10/18 19:57 IMPRESSION: COPD and postsurgical changes. No acute cardiopulmonary pathology Electronically Signed: Jose Francisco Benito MD at 20:22 EDT , Service support , Current Medications Acetaminophen (Tylenol) 650 mg PO Q6H PRN PRN PRN Reason: Mild pain 1-3/Temp > 100.7 F Last Admin: 10/12/18 09:56 Dose: 650 mg Documented by: Albuterol Sulfate (Ventolin Aerosols) 2.5 mg INHALATION Q4HWA.RT [facility] Last Admin: 10/12/18 10:15 Dose: 2.5 mg Documented by: Albuterol Sulfate (Ventolin Aerosols) 2.5 mg INHALATION Q2H PRN PRN PRN Reason: sob/wheezing. Last Admin: 10/11/18 21:54 Dose: 2.5 mg Documented by: Aspirin (Aspirin, Baby) 81 mg PO DAILY@0800 [facility] Last Admin: 10/12/18 05:43 Dose: 81 mg Documented by: Budesonide (Pulmicort Aerosol) 0.5 mg INHALATION Q12H.RT [facility] Last Admin: 10/12/18 07:30 Dose: Not Given Documented by: Clopidogrel Bisulfate (Plavix) 75 mg PO DAILY [facility] Last Admin: 10/12/18 05:38 Dose: 75 mg Documented by: Doxazosin Mesylate (Cardura) 4 mg PO QHS [facility] Last Admin: 10/12/18 00:13 Dose: 4 mg Documented by: Finasteride (Proscar) 5 mg PO DAILY [facility] Last Admin: 10/12/18 05:38 Dose: 5 mg Documented by: Guaifenesin (Mucinex) 1,200 mg PO BID PRN PRN PRN Reason: CONGESTION Last Admin: 10/11/18 20:03 Dose: 1,200 mg Documented by: Heparin Sodium (Beef Lung) (Heparin 500 Unit/5 Ml (100/Ml)) 500 unit IV UD PRN PRN Reason: HEPARIN FLUSH Sodium Chloride () 1,000 mls @ 0 mls/hr IV .Q0M JENNIFER Sodium Chloride () 1,000 mls @ 150 mls/hr IV .Q6H40M [facility] Stop: 10/12/18 16:02 Last Admin: 10/12/18 09:58 Dose: 150 mls/hr Documented by: Lorazepam (Ativan) 1 mg PO BID [facility] Last Admin: 10/12/18 05:38 Dose: 1 mg Documented by: Losartan Potassium (Cozaar) 25 mg PO DAILY [facility] Last Admin: 10/12/18 10:02 Dose: 25 mg Documented by: Metoclopramide HCl (Reglan) 5 mg IV Q6H PRN PRN Reason: NAUSEA/VOMITING Mirtazapine (Remeron) 30 mg PO QHS [facility] Last Admin: 10/11/18 21:43 Dose: 30 mg Documented by: Morphine Sulfate () 2 mg IV Q4H PRN PRN PRN Reason: Mild back pain (0-2/10) Last Admin: 10/12/18 09:55 Dose: 2 mg Documented by: Nitroglycerin (Nitrostat) 0.4 mg SUBLINGUAL Q5M PRN PRN Reason: Chest Pain Nitroglycerin (Nitrobid) 0.5 inch TRANSDERM. Q6H [facility] Last Admin: 10/12/18 09:57 Dose: 0.5 inch Documented by: Nutritional Formula (Lactose Free) (Ensure Enlive) 120 ml PO 4X/DAY [facility] Last Admin: 10/12/18 09:58 Dose: Not Given Documented by: Ondansetron HCl (Zofran) 4 mg IV Q8H PRN PRN PRN Reason: NAUSEA/VOMITING Pantoprazole Sodium (Protonix) 20 mg PO DAILY@1630 [facility] Last Admin: 10/11/18 17:38 Dose: 20 mg Documented by: Prednisolone Acetate (Pred Forte Eye Drops (5 Ml)) 1 drop RIGHT EYE 4X/DAY PRN PRN PRN Reason: Dry Eye Sodium Chloride () 10 - 40 ml IV UD PRN PRN Reason: SALINE FLUSH Last Admin: 10/12/18 05:41 Dose: 10 ml Documented by: Sodium Chloride () 500 ml IV BOLUS PRN PRN Reason: VASO-VAGAL PROTOCOL Theophylline (Kevin-Dur) 300 mg PO BID [facility] Last Admin: 10/11/18 05:52 Dose: 300 mg Documented by: Medical Necessity - Tobacco Use Smoking Status: Former smoker Tobacco Use: Non-smoker Assessment/Plan All Active Problems Chest pain (Acute) Normochromic normocytic anemia (Acute) Abnormal stress test (Acute) 1. CAD s/p stent * admitted with a complaitn of chest pain. Troponins and EKG were negative * stress test yesterday was abnormal * had cardiac cath today with TAMI placement in diagonal artery, proximal LAD and mid left circumflex arteries * on aspirin and plavix and statin 2. Anxiety with panic attacks: On Ativan 1 mg twice daily. 3. Bilateral LE edema * on lasix * * 4. History of lung cancer status post bilateral partial lobectomy: Stable. Follows with Dr. Hernandes. Breathing treatments. 5. COPD: Breathing treatments. Stable. theophylline on hold o/a of tachycardia. 6. BPH: Finasteride DVT prophylaxis: SCDs for now since he just had cardiac cath. * Code Visit Inpatient E&M: [id number] [facility] Hosp L3
--- NOTE | 2018-10-12 15:22 | PCM.PN.CARD ---
Subjectve: The patient was evaluated earlier this day. He has undergone evaluation with diagnostic cardiac catheterization. He was found to have multivessel CAD. He has subsequently undergone PCI to the LAD system in the LCx system. He is being considered for a staged PCI procedure to the RCA system. Objective: Vital Signs Temp Pulse Resp BP Pulse Ox 97.9 F 100 16 122/54 H 97 10/12/18 12:00 10/12/18 15:00 10/12/18 15:00 10/12/18 15:00 10/12/18 15:00 Oxygen Flow Rate (L/min) 2 Oxygen Delivery Method Nasal Cannula Weight: 156 lb Body Mass Index (BMI) 24.5 Intake and Output for Last 24 Hours 10/10/18 10/11/18 10/12/18 23:59 23:59 23:59 Intake Total 1305 / 1305 60 / 60 Output Total 325 / 325 Balance 1305 / 1305 -265 / -265 General: Awake, Alert, Oriented x 3, Cooperative, No Acute Distress HEENT: Atraumatic, Normocephalic, PERRL, EOMI, Sclera Non Icteric Oral: Moist Mucosa Neck: Supple, Good ROM, No JVD Lungs: Diminished Demetrius Bases Cardiovascular: Regular Rhythm, Normal S1, Normal S2 Vascular: Normal Femoral Pulses Abdomen: Bowel Sounds Present, Soft, Non Tender Extremities: No edema Neurological: No Focal Motor or Sensory Deficit Psych/Mental Status: Appropriate 10/12/18 04:50: WBC 5.5, RBC 4.16 L, Hgb 11.8 L, Hct 35.2 L, MCV 84.6, MCH 28.4, MCHC 33.5, RDW 13.7, RDW Differential 41.7, Plt Count 226, MPV 9.8, Immature Gran % (Auto) 0.200, Neut % (Auto) 57.2, Lymph % (Auto) 26.4, [place] % (Auto) 13.2 H, Eos % (Auto) 2.5, Baso % (Auto) 0.5, Absolute Neuts (auto) 3.2, Total Counted Not Reportable 10/12/18 04:50: Sodium 144, Potassium 3.6, Chloride 109 H, Carbon Dioxide 27.0, Anion Gap 8, BUN 20 H, Creatinine 1.08, Est GFR (MDRD) Af Amer 85, Est GFR (MDRD) Non-Af 70, BUN/Creatinine Ratio 18.5, Glucose 116 H, Calcium 8.6 10/12/18 04:50: PT 13.8, INR 1.1, APTT 29.2 Rhythm: Sinus rhythm Cardiac catheterization: CORONARY ANGIOGRAPHY DOMINANCE: Right Dominant LEFT HEART ASSESSMENT Left Ventricular Ejection Fraction: by LV Gram 55 % Normal LV wall motion Elevated Left Ventricular End Diastolic Pressure LVEDP: 20 mmHg LEFT MAIN: Mild calcification LEFT ANTERIOR DESCENDING ARTERY: PROX LAD: Mild calcification, 90 % Stenosis DIAGONAL 1: Proximal - 90 % Stenosis CIRCUMFLEX ARTERY: PROX CIRC: Mild calcification, 85 % Stenosis MID CIRC: 85 % Stenosis RIGHT CORONARY ARTERY: PROX RCA: Diffuse: 75 % Stenosis MID RCA: Previously placed stent has an instent 85 % restenosis RT PLV: Mild luminal irregularities RT PDA: Proximal - 25 - 50 % Stenosis RIGHT AV SEGMENT: Mild luminal irregularities VALVE FINDINGS: Normal Aortic Valve function Mitral Valve Insufficiency - Grade 2 AORTIC ROOT: Angiographically normal Cardiac intervention: CONCLUSIONS Successful PTCA/TAMI of proximal DIAG#1 with a 2.25 x 16 Promus Synergy, 75%-->0%, no dissection. Successful PTCA/TAMI proximal LAD with a 2.5 x 12 Promus Synergy, post dilated with a 3.0 x 8 NC in proximal portion of stent only; 75%-->0%, no dissection. Successful PTCA/TAMI mid LCX with a 2.5 x 38 Promus Synergy stent, post dilated throughout with a 2.5 x 12 NC Balloon; 75%-->0%, no dissection or plaque shift into OM#1. 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 Duarte Elective PCI of RCA in 3 weeks. Manual sheath removal as pt is too thin for closure. Medical Necessity - Tobacco Use Smoking Status: Former smoker Tobacco Use: Non-smoker Assessment/Plan 1. CAD status post PCI The details of his previous cardiac catheterization and PCI are unavailable at this time for review. He has now undergone follow-up diagnostic cardiac catheterization as described above. He had multivessel disease. He was not deemed an ideal candidate for CABG. Thus he is undergone PCI of the LAD and LCx system. He is being considered for staged PCI the RCA system. He will continue medical management in the interim. 2. Diabetes mellitus He will continue the care of internal medicine. 3. COPD He does have a long-standing history of COPD. He is undergone medical therapy and lung reduction therapy. He follows with Dr. Hernandes of pulmonology. This note was generated using a voice recognition system and there may be incorrect words, spelling or punctuation that were not noted when reviewing the office note prior to saving.
[2018-10-12] MEDS: Pantoprazole Sodium 20 MG Tablet PO (17:06)
[2018-10-12] MEDS: guaiFENesin 1,200 MG Tablet 1200 MG PO (17:58)
[2018-10-12] MEDS: Budesonide Respules 0.5 MG/2 ML AMPUL.NEB. INHALATION (18:47)
[2018-10-12] MEDS: Mirtazapine 30 MG Tablet PO (21:44)
[2018-10-13] VITALS (17 sets, daily range): BP systolic 88–147; BP diastolic 44–69; PULSE 84–109; RESP 14–18; TEMP 36.4–37.1; O2SAT 95–100
[2018-10-13] MEDS: Nitroglycerin Oint 1 INCH PACKET 0.5 INCH TRANSDERM. ×2 (03:10→07:55)
[2018-10-13] MEDS: Albuterol 2.5 MG/3 ML VIAL.NEB. INHALATION ×3 (04:00→11:23)
[2018-10-13 04:36] LABS: Absolute Lymphocyte Count 1.31 X10^3/ul (0.83-4.51); Basophil# 0.03 X10^3/uL; Basophil% 0.6 % (0-1); Eosinophil# 0.11 X10^3/uL; Eosinophils% 2.2 % (0-5); Hematocrit 36.8 % (40-54); Hemoglobin 12.1 g/dl (13.0-16.5); Lymphocyte # 1.31 X10^3/ul (4.0); Lymphocyte % 26.1 % (19-41); Mean Corp Hgb Conc 32.9 g/gl (32-36); Mean Corpuscular Hgb 28.7 pg (27.0-32.0); Mean Corpuscular Volume 87.4 fL (80-94); Mean Platelet Vol. 9.7 fl (6.2-12.0); Monocyte# 0.51 X10^3/uL; Monocyte% 10.2 % (0-10); Neutrophil # 3.04 X10^3/uL (2.7-7.7); Neutrophil % 60.7 % (47-70); Platelet Count 192 K/mm3 (150-450); RBC Distribution Width CV 14.3 % (11.6-14.6); RBC Distribution Width SD 45.6 fl (35.1-43.9); Red Blood Count 4.21 M/mm3 (4.6-6.2)
[2018-10-13 04:39] LABS: POSITIVE COUNT NO; POSITIVE DIFFERENTIAL NO; POSITIVE MORPHOLOGY NO
[2018-10-13 04:47] LABS: Anion Gap 7 (5-15); BUN 19 mg/dL (7-18); BUN/Creat Ratio 19.8 RATIO (10-20); Calcium,Total 8.5 mg/dL (8.5-10.1); Chloride 111 mmol/L (98-107); Creatinine, Serum 0.96 mg/dL (0.70-1.30); EST Glomerular Filtration Rate 80 mL/min (>60); Est Glom Filt Rate - Afr Amer 97 mL/min (>60); Estimated Creatinine Clearance 57.38 ml/min; Glucose 110 mg/dL (74-106); Sodium Level 144 mmol/L (136-145)
[2018-10-13] MEDS: Budesonide Respules 0.5 MG/2 ML AMPUL.NEB. INHALATION (07:15)
[2018-10-13] MEDS: Aspirin 81 MG TAB.CHEW PO (07:56)
[2018-10-13] MEDS: Acetaminophen 325 MG Tablet 650 MG PO (07:56)
[2018-10-13] MEDS: LORazepam 1 MG Tablet PO (07:56)
--- NOTE | 2018-10-13 08:29 | PCM.PN.CARD ---
Subjectve: Patient is awake and alert. He denies any ongoing chest discomfort. His main concern is his chronic shortness of breath and dyspnea which triggers his anxiety. Objective: Vital Signs Temp Pulse Resp BP Pulse Ox 98.8 F 84 16 97/53 L 99 10/13/18 04:00 10/13/18 06:00 10/13/18 06:00 10/13/18 06:00 10/13/18 07:15 Oxygen Flow Rate (L/min) 4 Oxygen Delivery Method Nasal Cannula Weight: 156 lb Body Mass Index (BMI) 24.5 Intake and Output for Last 24 Hours 10/11/18 10/12/18 10/13/18 23:59 23:59 23:59 Intake Total 1305 / 1305 1420 / 1540 180 / 180 Output Total 1275 / 1600 625 / 625 Balance 1305 / 1305 145 / -60 -445 / -445 General: Awake, Alert, Oriented x 3, Cooperative, No Acute Distress HEENT: Atraumatic, Normocephalic, PERRL, EOMI, Sclera Non Icteric Oral: Moist Mucosa Neck: Supple, Good ROM, No JVD Lungs: Diminished Demetrius Bases Cardiovascular: Regular Rhythm, Normal S1, Normal S2 Vascular: Normal Femoral Pulses Abdomen: Bowel Sounds Present, Soft, Non Tender Extremities: No edema Neurological: No Focal Motor or Sensory Deficit Psych/Mental Status: Anxious 10/13/18 04:25: WBC 5.0, RBC 4.21 L, Hgb 12.1 L, Hct 36.8 L, MCV 87.4, MCH 28.7, MCHC 32.9, RDW 14.3, RDW Differential 45.6 H, Plt Count 192, MPV 9.7, Immature Gran % (Auto) 0.200, Neut % (Auto) 60.7, Lymph % (Auto) 26.1, [place] % (Auto) 10.2 H, Eos % (Auto) 2.2, Baso % (Auto) 0.6, Absolute Neuts (auto) 3.0, Total Counted Not Reportable 10/13/18 04:25: Sodium 144, Potassium 4.0, Chloride 111 H, Carbon Dioxide 26.0, Anion Gap 7, BUN 19 H, Creatinine 0.96, Est GFR (MDRD) Af Amer 97, Est GFR (MDRD) Non-Af 80, BUN/Creatinine Ratio 19.8, Glucose 110 H, Calcium 8.5 Rhythm: Sinus rhythm; PVCs EKG: Sinus rhythm Medical Necessity - Tobacco Use Smoking Status: Former smoker Tobacco Use: Non-smoker Assessment/Plan 1. CAD status post PCI The details of his previous cardiac catheterization and PCI are unavailable at this time for review. He has now undergone follow-up diagnostic cardiac catheterization as described above. He had multivessel disease. He was not deemed an ideal candidate for CABG. Thus he is undergone PCI of the LAD and LCx system. He is being considered for staged PCI the RCA system. He will continue medical management in the interim. 2. Diabetes mellitus He will continue the care of internal medicine. 3. COPD He does have a long-standing history of COPD. He is undergone medical therapy and lung reduction therapy. He follows with Dr. Hernandes of pulmonology. Overall, from a cardiovascular standpoint, the patient will continue his medical management with his antiplatelet therapy and his antihypertensive therapy. He has had issues with other medications such as beta-blockers and lipid-lowering agents. He will continue with future outpatient cardiovascular follow-up in the future outpatient staged PCI procedure to the RCA system. In the interim he will continue evaluation care per internal medicine and his primary digital performance analyst. This note was generated using a voice recognition system and there may be incorrect words, spelling or punctuation that were not noted when reviewing the office note prior to saving.
[2018-10-13] MEDS: Finasteride 5 MG Tablet PO (09:34)
[2018-10-13] MEDS: Clopidogrel Bisulfate 75 MG Tablet PO (09:34)
[2018-10-13] MEDS: Losartan Potassium 25 MG Tablet PO (09:34)
--- NOTE | 2018-10-13 10:59 | PCM.DC ---
- Discharge Diagnoses Current Active Problems: Current Active and Chronic Problems (Last Updated 10/13/18 @ 08:34 by Yuko Dangelo) S/P coronary artery stent placement (Chronic ~10/09/18) PTCA/TAMI of the prox Diag #1, PTCA/TAMI of the prox LAD, PTCA/TAMI of the mid LCX 10/09/18 Atherosclerotic heart disease of [place] coronary artery without angina pectoris (Chronic) Chest pain (Acute) Normochromic normocytic anemia (Acute) Chronic renal failure, stage 2 (mild) (Chronic) CARLIN (obstructive sleep apnea) (Chronic) History of malignant neoplasm of lung (Chronic) in 2010? 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 BPH (benign prostatic hyperplasia) (Chronic) GERD (gastroesophageal reflux disease) (Chronic) Former smoker (Chronic) quit in the early Abnormal stress test (Acute) CAD in [place] artery (Chronic) You will use the following diet at home:: Cardiac Your food should be the consistency of: Regular Your liquids should be the consistency of: Regular/Thin Discharge Activity: Return to Normal Activity Weight Bearing Status: Weight bearing as tolerated Call your doctor if you observe: Shortness of breath, Chest pain Allergies/Adverse Reactions: Allergies gabapentin Allergy (Unknown, Verified 10/10/18 19:50) Unknown acetylcysteine [From Mucomyst] Allergy (Verified 10/10/18 19:50) Shortness of breath alprazolam [From Xanax] Allergy (Verified 10/10/18 19:50) breathing issues belladonna alkaloids Allergy (Verified 10/10/18 19:50) Unknown cephalexin Allergy (Verified 10/10/18 19:50) Unknown ciprofloxacin [From Cipro] Allergy (Verified 10/10/18 19:50) Unknown dicyclomine Allergy (Verified 10/10/18 19:50) Unknown diltiazem Allergy (Verified 10/10/18 19:50) Unknown doxycycline Allergy (Verified 10/10/18 19:50) Shortness of breath ezetimibe Allergy (Verified 10/10/18 19:50) Unknown fluvastatin Allergy (Verified 10/10/18 19:50) Unknown metoprolol [From Toprol XL] Allergy (Verified 04/12/18 21:15) Unknown nitrofurantoin Allergy (Verified 10/10/18 19:50) Unknown phenobarbital Allergy (Verified 10/10/18 19:50) Unknown prochlorperazine [From Compazine] Allergy (Verified 10/10/18 19:50) Unknown simvastatin [From Zocor] Allergy (Verified 10/10/18 19:50) Unknown Glaaeey-Pgx-Hyx Reductase Inhibitor Allergy (Verified 10/10/18 19:50) Unknown sulfamethoxazole [From Bactrim] Allergy (Verified 10/10/18 19:50) Unknown tamsulosin [From Flomax] Allergy (Verified 10/10/18 19:50) Unknown trimethoprim [From Bactrim] Allergy (Verified 10/10/18 19:50) Unknown carvedilol Adverse Reaction (Verified 10/10/18 19:50) Vomiting Medications to take at Discharge Aspirin [Aspirin, Baby] 81 mg PO DAILY@0800 11/13/15 Budesonide/Formoterol 160/4.5 [Symbicort 160/4.5 Mcg Inhaler (SP)] 2 puff INHALATION BID 11/13/15 Doxazosin Mesylate [Cardura] 4 mg PO QHS 11/13/15 Finasteride [Proscar] 5 mg PO DAILY 11/13/15 Mirtazapine [Remeron] 30 mg PO QHS 11/13/15 Omeprazole [Prilosec] 20 mg PO DAILY 11/13/15 Theophylline [Kevin-Dur] 300 mg PO BID 11/13/15 prednisoLONE eye drops (1 mL) [Pred Forte eye drops (1 mL)] 1 drop RIGHT EYE 4X/DAY PRN PRN 11/13/15 Guaifenesin [Mucinex] 1,200 mg PO BID PRN 07/29/17 Albuterol Inhaler [Ventolin Hfa] 1 - 2 puff INHALATION Q4H PRN PRN #1 inhaler 08/26/17 Lorazepam [Ativan] 1 mg PO BID #60 tab 08/26/17 Ipratropium/Albuterol Sulfate [Duoneb] 3 ml INHALATION 4X/DAY PRN 03/11/18 Nitroglycerin (INPATIENT USE) [Nitrostat] 0.4 mg SUBLINGUAL Q5M PRN 03/11/18 Roflumilast [Daliresp] 500 mcg PO DAILY 03/11/18 Azithromycin 250 mg PO DAILY 10/10/18 Furosemide [Lasix] 20 mg PO QWEEK PRN 10/10/18 Clopidogrel Bisulfate [Plavix] 75 mg PO DAILY #30 tab 10/13/18 predniSONE tablet 40 mg PO DAILY@0800 4 Days #8 tab 10/13/18 The following prescriptions were given: Clopidogrel Bisulfate [Plavix] 75 mg PO DAILY #30 tab Transmission Status: [facility] to [id number] predniSONE tablet 40 mg PO DAILY@0800 4 Days #8 tab Transmission Status: [facility]ending to [id number] Orders to be completed after discharge: Phase II, Outpatient Cardiac Rehab Location: None Selected Primary Care Physician: Dutch Lee III, MD [Primary Care Provider] - Please follow up with your Primary Care Physician in: one week Test Results: Test results from this visit will be discussed in further detail at your follow-up appointment, if applicable. Please Follow Up With: Ko Duarte MD When: one week Proposed Discharge Date: 10/13/18
[2018-10-13] MEDS: predniSONE 20 MG Tablet 40 MG PO (11:00)
--- NOTE | 2018-10-13 11:01 | PCM.DC.SUM ---
Discharge Date and Diagnosis - Problem List Patient Problems: Active and Suspected Problems (Last Updated 10/13/18 @ 08:34 by Yuko Dangelo) Chest pain (Acute) Normochromic normocytic anemia (Acute) Abnormal stress test (Acute) Date of Admission: 10/10/18 Date of Discharge: 10/13/18 - Primary Discharge Diagnosis Active and Suspected Problems (Last Updated 10/13/18 @ 08:34 by Yuko Dangelo) Chest pain (Acute) Normochromic normocytic anemia (Acute) Abnormal stress test (Acute) CAD s/p stents - Secondary Discharge Diagnosis Chronic Problems S/P coronary artery stent placement (Chronic ~10/09/18) PTCA/TAMI of the prox Diag #1, PTCA/TAMI of the prox LAD, PTCA/TAMI of the mid LCX 10/09/18 Atherosclerotic heart disease of [place] coronary artery without angina pectoris (Chronic) Chronic renal failure, stage 2 (mild) (Chronic) CARLIN (obstructive sleep apnea) (Chronic) History of malignant neoplasm of lung (Chronic) in 2010? 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 No acute cardiopulmonary pathology Electronically Signed: Jose Francisco Benito MD at 20:22 EDT , Service support , cardiology- DR Duarte Operations: None Procedures: Cardiac catheterization, Stress test Summary of Care Provided: The patient is a 78 year old M with a past medical history as listed. He was admitted through the ED on 10/10/2018 with a complaint of episodic shortness of breath followed by chest pain and said he just did not feel well. Chest pain was left-sided and did not radiate. He did not have any associated sweating. He also complained of swelling in his lower extremities which was chronic. Initial troponin was negative and EKG showed normal sinus rhythm with no acute ST changes. Chest x-ray was also normal. He was admitted to be managed for chest pain to rule out ACS. Troponins x3 were negative. He had a stress test which was abnormal and so cardiology was consulted. Patient had a cardiac cath on 10/12/2018 with drug-eluting stent placement in the diagonal artery, proximal LAD and mid left circumflex arteries. He also had an echocardiogram which showed EF of 70% with indeterminate diastolic function and normal ventricular systolic function and size. He was transferred to the cardiac ICU after cath for closer monitoring. He remained stable and was discharged home on 10/13/2018 with a prescription for p.o. aspirin and Plavix. Patient was not put on statins or beta blockers as he had not tolerated these well in the past. He is to follow-up with his primary care doctor and cardiology within 1 week. Patient seen and examined. Complains of some mild wheezing and wanted steroids to help with it. Review of systems is otherwise negative. Labs and vitals reviewed. Home medications reviewed and reconciled. o/e: Vital Signs Height 5 ft 7 in Weight: 156 lb Weight in Pounds 157.0 lbs BMI 24.4 Pulse Ox 99 Temperature 97.6 F Pulse Rate 101 Respiratory Rate 18 Blood Pressure [BP] 130/51 Blood Pressure 114/51 Blood Pressure Position [BP] Sitting Blood Pressure Position Semi-Fowlers General: Alert, Oriented x3, Cooperative, No apparent distress HEENT: Atraumatic, PERRLA Oral: Moist Mucosa Neck: Supple, No JVD, Negative Carotid Bruits Lungs: Clear to auscultation, Normal air movement, No rhonchi, No wheeze, No rales Cardiovascular: Regular rate, Regular Rhythm, Normal S1, Normal S2, No murmurs Abdomen: Bowel Sounds Present, Soft, Non Tender, Non-Distended Extremities: No clubbing, No cyanosis, Edema - mild pitting bipedal edema Skin: No rashes, No breakdown Musculoskeletal: No Tenderness to Palpation of Joints or Extremities Lymphatic: No Cervical, Supraclavicular, or Inguinal Adenopathy Neurological: Cranial nerves II-XII grossly intact, Neuro grossly intact, Motor Exam 5/5 strength throughout Psych/Mental Status: Normal Affect, Appropriate, Alert and oriented to time, place, person, mood and affect [] He was discharged with a prescription for p.o. prednisone 40 mg daily for 5 days. Rest of management as above. Patient Problems: Active and Suspected Problems (Last Updated 10/13/18 @ 08:34 by Yuko Dangelo) Chest pain (Acute) Normochromic normocytic anemia (Acute) Abnormal stress test (Acute) - Physical Exam Vital Signs Temp Pulse Resp BP Pulse Ox 97.6 F L 101 H 15 116/51 L 96 10/13/18 08:00 10/13/18 10:00 10/13/18 10:00 10/13/18 10:00 10/13/18 10:00 Oxygen Flow Rate (L/min) 2 Oxygen Delivery Method Nasal Cannula Weight: 156 lb Body Mass Index (BMI) 24.5 Intake and Output for Last 24 Hours 10/11/18 10/12/18 10/13/18 23:59 23:59 23:59 Intake Total 1305 / 1305 1420 / 1540 180 / 180 Output Total 1275 / 1600 625 / 625 Balance 1305 / 1305 145 / -60 -445 / -445 Laboratory Tests Past 24 Hrs 10/12/18 10/13/18 10/13/18 11:03 04:25 04:25 WBC 5.0 RBC 4.21 L Hgb 12.1 L Hct 36.8 L MCV 87.4 MCH 28.7 MCHC 32.9 RDW 14.3 RDW Differential 45.6 H Plt Count 192 MPV 9.7 Immature Gran % (Auto) 0.200 Neut % (Auto) 60.7 Lymph % (Auto) 26.1 [place] % (Auto) 10.2 H Eos % (Auto) 2.2 Baso % (Auto) 0.6 Absolute Neuts (auto) 3.0 Absolute Lymphs (auto) 1.31 Total Counted Not Reportable Activated Clotting Time 153 H Sodium 144 Potassium 4.0 Chloride 111 H Carbon Dioxide 26.0 Anion Gap 7 BUN 19 H Creatinine 0.96 Estim Creat Clear Calc 57.38 Est GFR (MDRD) Af Amer 97 Est GFR (MDRD) Non-Af 80 BUN/Creatinine Ratio 19.8 Glucose 110 H Calcium 8.5 Discharge Diet: Low fat/ Low Cholesterol Discharge Activity: Return to Normal Activity Weight Bearing Status: Weight bearing as tolerated Call your doctor if you observe: Shortness of breath, Chest pain Home Medications: Medications to take at Discharge Aspirin [Aspirin, Baby] 81 mg PO DAILY@0800 11/13/15 Budesonide/Formoterol 160/4.5 [Symbicort 160/4.5 Mcg Inhaler (SP)] 2 puff INHALATION BID 11/13/15 Doxazosin Mesylate [Cardura] 4 mg PO QHS 11/13/15 Finasteride [Proscar] 5 mg PO DAILY 11/13/15 Mirtazapine [Remeron] 30 mg PO QHS 11/13/15 Omeprazole [Prilosec] 20 mg PO DAILY 11/13/15 Theophylline [Kevin-Dur] 300 mg PO BID 11/13/15 prednisoLONE eye drops (1 mL) [Pred Forte eye drops (1 mL)] 1 drop RIGHT EYE 4X/DAY PRN PRN 11/13/15 Guaifenesin [Mucinex] 1,200 mg PO BID PRN 07/29/17 Albuterol Inhaler [Ventolin Hfa] 1 - 2 puff INHALATION Q4H PRN PRN #1 inhaler 08/26/17 Lorazepam [Ativan] 1 mg PO BID #60 tab 08/26/17 Ipratropium/Albuterol Sulfate [Duoneb] 3 ml INHALATION 4X/DAY PRN 03/11/18 Nitroglycerin (INPATIENT USE) [Nitrostat] 0.4 mg SUBLINGUAL Q5M PRN 03/11/18 Roflumilast [Daliresp] 500 mcg PO DAILY 03/11/18 Azithromycin 250 mg PO DAILY 10/10/18 Furosemide [Lasix] 20 mg PO QWEEK PRN 10/10/18 Clopidogrel Bisulfate [Plavix] 75 mg PO DAILY #30 tab 10/13/18 predniSONE tablet 40 mg PO DAILY@0800 4 Days #8 tab 10/13/18 Following Prescrptions Were Given to Patient: Clopidogrel Bisulfate [Plavix] 75 mg PO DAILY #30 tab Transmission Status: [id number] predniSONE tablet 40 mg PO DAILY@0800 4 Days #8 tab Transmission Status: Received by [id number] Other Amb Orders: Phase II, Outpatient Cardiac Rehab Location: None Selected Primary Care Physician: Dutch Lee III, MD [Primary Care Provider] - Please follow up with your Primary Care Physician in: one week Please Follow Up With: [place],Ko, MD When: one week Disposition: Home Minutes spent on discharge:: 40 Patient Condition:: Stable Medical Necessity - Tobacco Use Smoking Status: Former smoker Tobacco Use: Non-smoker Meaningful Use Info Meaningful Use Diagnoses (Choose all that apply): None applicable Code Visit Inpatient E&M: 92245 Disch Hosp
== END 2018-10-13 13:15 | disposition home or self-care (01) | DRG 247 ==
LOC: ED 20:05 → PCU 22:32 → ICU 10-12 08:47
PROVIDERS: Internal Medicine Cardiovascular Disease; Admitting Provider Internal Medicine; Emergency Provider Emergency Medicine; Family Provider Family Medicine; PCP Family Medicine; Referring Provider Internal Medicine; Visit Provider Student in an Organized Health Care Education/Training Program
DX: I25.110 Atherosclerotic heart disease of native coronary artery with unstable angina pectoris (principal); T82.855A Stenosis of coronary artery stent, initial encounter; N40.0 Benign prostatic hyperplasia without lower urinary tract symptoms; J44.9 Chronic obstructive pulmonary disease, unspecified; D64.9 Anemia, unspecified; G47.33 Obstructive sleep apnea (adult) (pediatric); Z85.118 Personal history of other malignant neoplasm of bronchus and lung; Z90.2 Acquired absence of lung [part of]; Z95.5 Presence of coronary angioplasty implant and graft; Z87.891 Personal history of nicotine dependence; F41.0 Panic disorder [episodic paroxysmal anxiety]
CPT/HCPCS: 36415; 71045; 78452; 80048; 80053; 80198; 81001; 83036; 84484; 85025; 85347; 85610; 85730; 92928; 92929; 93005; 93017; 93306; 93458; 94640; 97802; 99152; 99153; 99285; A9500; J7030; J7040; A4216; C1725; C1769; C1874; C1887; C1894; C9600; C9601; J2785; Q9967

== ENCOUNTER 2018-10-27 19:05 | Emergency (ER) | payer MEDICARE, BC, SELFPAY ==
[2018-10-12 11:08] VITALS: BMI 24.4
[2018-10-27 11:06] VITALS: BMI 25.2
[2018-10-27 19:06] VITALS: BP 153/71; PULSE 117; RESP 20; TEMP 36.5; O2SAT 97; BMI 24.4
[2018-10-27 20:08] VITALS: BP 153/70; PULSE 107; RESP 16; TEMP 37.2; O2SAT 96
--- NOTE | 2018-10-27 20:29 | CT_ITS ---
STUDY: CT ABDOMEN AND PELVIS WITHOUT CONTRAST REASON FOR EXAM: Male, 78 years old. Left lower quadrant pain. Lung cancer. COPD. RADIATION DOSAGE (If Supplied By Facility): CTDIvol = ( 8.25 ) mGy, DLP = ( 360.60 ) mGycm TECHNIQUE: Transaxial images were obtained from the dome of the diaphragm to the symphysis pubis without oral contrast, and without intravenous contrast. Sagittal and coronal images were reconstructed. Individualized dose optimization techniques were used for this CT. COMPARISON: 12/29/2015. FINDINGS: Visualized lung bases show evidence for chronic pulmonary disease. Moderate pericardial effusion. Stable appearance of the liver. Normal shape and size. Stable numerous liver cysts as much as 4 cm. The gallbladder is contracted. Normal spleen. There is diffuse atrophy of the pancreas. Stable 1.5 cm small mass of the right adrenal gland. Normal left adrenal gland. Normal right kidney. Normal left kidney. Evaluation of the GI tract is limited by absence of oral contrast. Cannot exclude stomach wall thickening. No dilated loops of bowel or evidence for obstruction. Cannot exclude segmental thickening of the [place] of the small or large bowel. Cannot exclude enteritis or colitis. Moderate diffuse fecal retention. Diverticulosis without definite diverticulitis. Appendix within normal limits. There is diffuse atherosclerotic calcification of the abdominal aorta, without a demonstrated aneurysm. Normal inferior vena cava. Normal retroperitoneum. Mild diffuse wall thickening of the urinary bladder. There is enlargement of the prostate gland. Normal abdominal wall. There are diffuse degenerative changes of the visualized lumbar spine. CT/Abdomen/Pelvis without Cont IMPRESSION: No acute abnormalities are seen. Chronic findings as above. 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 Cannot exclude segments of bowel wall thickening. Electronically Signed: Edy Duran MD at 21:07 EDT , Service support ,
[2018-10-27 20:50] LABS: Absolute Lymphocyte Count 0.74 X10^3/uL (0.83-4.51); Absolute Neutrophil Count 4.4 X10^3/uL (2.0-7.7); Basophil# 0.03 X10^3/uL; Basophil% 0.5 % (0-1); Eosinophil# 0.18 X10^3/uL; Hematocrit 35.4 % (40-54); Hemoglobin 11.9 g/dL (13.0-16.5); Lymphocyte # 0.74 X10^3/ul (4.0); Lymphocyte % 12.4 % (19-41); Mean Corp Hgb Conc 33.6 g/dL (32-36); Mean Corpuscular Hgb 29.3 pg (27.0-32.0); Mean Corpuscular Volume 87.2 fL (80-94); Mean Platelet Vol. 10.1 fl (6.2-12.0); Monocyte# 0.61 X10^3/uL; Monocyte% 10.2 % (0-10); NRBC Flagged by Analyzer 0 % (0-5); Neutrophil # 4.39 X10^3/uL (2.7-7.7); Neutrophil % 73.4 % (47-70); Platelet Count 219 K/mm3 (150-450); RBC Distribution Width CV 13.8 % (11.6-14.6); RBC Distribution Width SD 43.8 fl (35.1-43.9); Red Blood Count 4.06 M/mm3 (4.6-6.2)
[2018-10-27] MEDS: Ondansetron 4 MG/2 ML Vial IV (21:10)
[2018-10-27] MEDS: Morphine 4 MG/ML Syringe IV (21:10)
[2018-10-27] MEDS: 0.9% Normal Saline 1,000 ML 1000 ML IV (21:11)
[2018-10-27 21:13] LABS: Anion Gap 6 (5-15); BUN 21 mg/dL (7-18); BUN/Creat Ratio 18.9 RATIO (10-20); Calcium,Total 8.6 mg/dL (8.5-10.1); Chloride 107 mmol/L (98-107); Creatinine, Serum 1.11 mg/dL (0.70-1.30); EST Glomerular Filtration Rate 68 mL/min (>60); Est Glom Filt Rate - Afr Amer 82 mL/min (>60); Estimated Creatinine Clearance 49.62 ml/min; Glucose 188 mg/dL (74-106); Potassium 4.1 mmol/L (3.5-5.1); Sodium Level 138 mmol/L (136-145)
[2018-10-27] MEDS: Ipratropium/Albuterol Sulfate 3 ML AMPUL.NEB INHALATION (21:49)
[2018-10-27 21:50] VITALS: BP 150/77; PULSE 102; PULSE 98; RESP 19; RESP 22; TEMP 36.9; O2SAT 98
[2018-10-27 21:51] LABS: Bacteria 0 SEEN /hpf (None Seen); Mucous, Urine 0 SEEN /hpf (<or=2+); Red Blood Cells-Urine 0 SEEN /hpf (0-5); White Blood Cells 0 SEEN /hpf (0-5)
[2018-10-27 21:53] LABS: Color, Urine Yellow (Yellow); Glucose, Dipstick 50 mg/dl (Normal); Ketone-Dipstick Negative (Negative); Leukocyte Esterase-Dipstick Negative /ul (Negative); Nitrite-Dipstick Negative (Negative); Occult Blood-Urine 10 /ul (Negative); Protein-Dipstick Negative (Negative); Urine Bilirubin Dipstick Negative (Negative); Urine Clarity Clear (Clear); Urine Urobilinogen Normal (Normal)
[2018-10-27 22:01] LABS: Squamous Epithelial Cells - UA 0-5 SEEN /hpf (0-5)
--- NOTE | 2018-10-27 22:16 | ED.DCSUM_ITS ---
- ER Visit Summary Date of Service: 10/27/18 Chief Complaint: Abdominal pain History of Present Illness: The patient is a [address] Alvin Lee. He reports he has left lower quadrant abdominal pain that began today. Is a sharp pain Zeta 10 at worst and 3-10 currently. Is worsened by movement or pushing on it. Is relieved by remaining still. He denies any associated nausea, vomiting, diarrhea. Is less balance today. He said no mild hematochezia. No dysuria frequency. States these had similar symptoms in the past with diverticulitis. Physical Examination: Vitals: Stable. Afebrile. General: Well-nourished and well-developed. Head: Normocephalic atraumatic. Neck: Supple, no lymphadenopathy. No JVD. Nontender. Cardiovascular: Tachycardic regular rhythm with a 2 out of 6 systolic murmur. Respiratory: No respiratory distress. Clear to auscultation bilaterally. Abdominal: Soft, mild left lower quadrant tenderness to palpation, nondistended, normal bowel sounds. No guarding, rebound, or peritoneal signs. Back: Nontender. Extremities: Nontender, no edema. Skin: Normal color, no rash. Neurologic: Alert and oriented ?3. Cranial nerves II through XII are intact. Normal strength and sensation. Psych: Normal affect. Test Results: CBC shows an H&H of 11.9 35.4, 7 neutrophils 73, lymphocytes of 12. Chem-7 shows a glucose of 188 and BUN of 21. UA is negative. CT shows: No acute abnormalities are seen. Chronic findings as above. 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 Cannot exclude segments of bowel wall thickening. Emergency Department Course and Treatment: Patient was given albuterol and Atrovent aerosol when he complained of shortness of breath states that he was due for his DuoNeb. He was given a dose of morphine and Zofran IV. He is resting comfortably. His resting heart rate is in the 90s. However, with any movement his heart rate de increases to the 120s. He reports that this is normal for him. He does not want any further evaluation of that. Treatment Plan: Patient will be discharged instructions to push fluids. He is given a prescription for magnesium citrate. Follow-up with his primary care physician in 1 to 2 days if not improving. Return to the emergency department for any worsening symptoms. Disposition: To home in improved and stable condition. Impression: 1. Abdominal pain, uncertain cause. 2. Sinus tachycardia. 3. COPD. This note was generated with [employer] dictation software. It may contain incorrect words, spelling, and punctuation that were not noted in review of the chart prior to signing ED Disposition - Plan for ED Patient: Disposition: Home or Assisted Living Instructions: ABDOMINAL PAIN, Unkown Cause, (Male) Prescriptions: Magnesium Citrate [Citrate Of Magnesia] 300 ml PO X1 #1 bottle Prescription Printed Referrals: Dutch Lee III, MD [Primary Care Provider] - 1-2 Days if not improving
[2018-10-27 22:39] VITALS: BP 148/78; PULSE 101; RESP 19; O2SAT 98
== END 2018-10-27 22:48 | disposition home or self-care (01) ==
LOC: ED 20:36
PROVIDERS: Emergency Provider Emergency Medicine; Family Provider Family Medicine; PCP Family Medicine
DX: R10.32 Left lower quadrant pain (principal); R00.0 Tachycardia, unspecified; J44.9 Chronic obstructive pulmonary disease, unspecified; R01.1 Cardiac murmur, unspecified; N40.1 Benign prostatic hyperplasia with lower urinary tract symptoms; N13.8 Other obstructive and reflux uropathy; I25.10 Atherosclerotic heart disease of native coronary artery without angina pectoris; Z87.19 Personal history of other diseases of the digestive system; Z79.82 Long term (current) use of aspirin; Z79.899 Other long term (current) drug therapy
CPT/HCPCS: 74176; 80048; 81001; 85025; 94640; 96361; 96374; 96375; 99283; J7030; A4216; J2405

== ENCOUNTER → 2018-11-03 | Outpatient (CLI) | payer MEDICARE, BC, SELFPAY ==
[2018-10-12 11:08] VITALS: BMI 24.4
[2018-10-27 19:06] VITALS: BMI 24.4
--- NOTE | 2018-11-03 09:45 | CDU_ITS ---
Reason For Study: Right carotid bruit Rt. Velocities/BP Lt. Velocities/BP Prox CCA 138.9/18.2 cm/sec. Prox CCA 101/18.8 cm/sec. Mid CCA 106/16 cm/sec. Mid CCA 104.7/18.8 cm/sec. Dist CCA 119.2/18.2 cm/sec. Dist CCA 113.8/22.5 cm/sec. Prox ICA 103.8/13.8 cm/sec. Prox ICA 98.6/17.6 cm/sec. Mid ICA 71.6/16.3 cm/sec. Mid ICA 87.6/24.9 cm/sec. Dist ICA 101/27.9 cm/sec. Dist ICA 91.3/28.6 cm/sec. Rt. ICA/CCA = 0.9. Lt. ICA/CCA = 0.9. Prox ECA 97.4/6.5 cm/sec. Prox ECA 157.6/13.3 cm/sec. Rt. Vert. 57.5/12.4 cm/sec. Lt. Vert. 65.4/15.1 cm/sec. Right Extracranial There is homogeneous, smooth atherosclerotic plaque noted in the right common carotid artery. There is heterogeneous, irregular atherosclerotic plaque noted in the right internal carotid artery. There is intimal thickening but no significant atherosclerotic plaque noted in the right external carotid artery. Antegrade flow is noted in the right vertebral artery. Left Extracranial There is homogeneous, smooth atherosclerotic plaque noted in the left common carotid artery. There is heterogeneous, irregular atherosclerotic plaque noted in the left internal carotid artery. There is heterogeneous, irregular atherosclerotic plaque noted in the left external carotid artery. Antegrade flow is noted in the left vertebral artery. Procedure Carotid Duplex 11701. Exam performed in department. Interpretation Summary Mild (<50%) stenosis right extracranial internal carotid. Mild (<50%) stenosis left extracranial internal carotid. Flow within the vertebral arteries is antegrade bilaterally. Ordering Physician: Yuko Aguirre Referring Physician: PAUL Lee M.D. Performed By: Alayna Kowalski RVT
== END | disposition home or self-care (01) ==
LOC: CVS 09:43
PROVIDERS: Family Provider Family Medicine; PCP Family Medicine; Referring Provider Physician Assistant Medical; Visit Provider Physician Assistant Medical
DX: I25.10 Atherosclerotic heart disease of native coronary artery without angina pectoris (principal); R09.89 Other specified symptoms and signs involving the circulatory and respiratory systems
CPT/HCPCS: 93880

== ENCOUNTER 2018-11-07 08:45 | Day surgery (SDC) | payer MEDICARE, BC, SELFPAY ==
[2018-10-12 11:08] VITALS: BMI 24.4
[2018-11-07] VITALS (30 sets, daily range): BP systolic 117–186; BP diastolic 54–121; PULSE 80–104; RESP 13–25; TEMP 36.3–36.8; O2SAT 95–99; BMI 23.5; BMI 23.9
--- NOTE | 2018-11-07 12:02 | CL.I_ITS ---
Patient Name: NIESHA SHUKLA Study Date: 11/07/2018 Performing: Kvng Esquivel MD Ht: 66.92 inches 170 cm : 1940 Wt: 150.5 lbs 68.266 kg Age: 78 Gender: male BSA: 1.79 PROCEDURE(S) PERFORMED [id number] W OR WO PTCA, SINGLE CORONARY ARTERY CLINICAL PROFILE AND CO-MORBIDITIES Indications: New Onset Angina <= 2 months, Stable Known CAD Heart Failure: None Stress/Imaging Date: 10/11/2018 Stress Test with SPECT MPI: Positive Low Risk Angina Classification Anginal Classification w/in 2 Weeks: CCS II CAD Presentations: Unstable angina. Comorbidities/Risk Factors: Hypertension Dyslipidemia Prior PCI Diabetes Mellitus: Diabetes Therapy: Diet CONCLUSIONS Successful PTCA/TAMI mid RCA with a 3.5 x 38 Promus Synergy, post dilated throughout with a 4.0 x 12 N C Balloon; 85%-->0%, no dissection. Successful PTCA/TAMI proximal/ostial RCA with a 3.5 x 16 Promus Synergy, post dilated throughout with a 4.0 x 12 NC Balloon; 75%-->0%, no dissection. RECOMMENDATIONS Highly recommend quitting all tobacco products Follow up with primary communications strategist Risk factor modification ASA Indefinitley Plavix for at least 12 months Routine post interventional care Refer for Outpatient Cardiac Rehab Manual sheath removal per protocol Follow up with Dr. Duarte Pt unable to tolerate statins or beta blockers Manual sheath removal. DESCRIPTION OF PROCEDURE The patient arrived to the procedure lab. The risks and benefits of the procedure as well as a full d escription of our services here and current unavailability of surgical backup were fully explained to the patient and/or their significant other prior to the catheterization. The Timeout was completed, verifying the correct patient and procedure. The patient's procedural site was prepped and draped in the usual fashion. Local anesthetic was given subcutaneously to right groin region with Lidocaine 2%. Using a modified Seldinger technique, arterial access was obtained via the right femoral artery, a 6 Fr 45cm sheath was inserted.. HS1 SH Guide catheter was inserted and engaged into the RCA. [employer] [place] Guide wire was advance d to the RPL. Emerge 2.0 x 12 Balloon catheter was inserted. Balloon catheter was advanced across les ion in the right coronary, mid. PTCA balloon inflated at 8 atms for 8 secs. Balloon catheter was repo sitioned to additional lesion in the right coronary, proximal. PTCA balloon inflated at 8 atms for 10 secs. PTCA balloon inflated at 8 atms for 8 secs. Angiogram performed post balloon dilatation. Syner gy 3.5 x 38 Drug Eluting stent was inserted. Drug Eluting stent was advanced across the lesion in the right coronary, mid. Angiogram performed pre stent deployment. Angiogram performed post stent deploy ment. Synergy 3.5 x 16 Drug Eluting stent was inserted. Drug Eluting stent was advanced across the le ulysses in the right coronary, proximal. Angiogram performed pre stent deployment. Angiogram performed p ost stent deployment. NC Emerge 4.0 x 12 Balloon catheter was inserted. Drug Eluting stent was advanced across the lesion in the right coronary, mid. Balloon catheter was repositioned to addit ional lesion in the right coronary, proximal. Angiogram performed post balloon dilatation. NC Emerge 4.0 x 12 Balloon catheter was reinserted Balloon catheter was advanced across lesion in the right cor onary, proximal. Angiogram performed post balloon dilatation. NC Emerge 4.0 x 12 Balloon catheter was reinserted Balloon catheter was advanced across lesion in the right coronary, proximal. Angiogram pe rformed pre balloon dilatation. Angiogram performed post balloon dilatation. The arterial sheath was sutured in place and capped INTERVENTION INFORMATION LESION SITE: RCA (Mid) Lesion Complexity: High/C, lesion at bifurcation: No, thrombus present: No, lesion length: 38 mm, cul prit lesion: Yes, In-stent restenosis: Yes Pre Stenosis: 85 % Pre intervention ARLIN flow: 3 PROCEDURE: Drug Eluting Stent with pre and post dilatation Post Stenosis: 0 % Post intervention ARLIN flow: 3 Lesion Devices: Cook 6F 45cm Sheath [email or web address] 6 Fr HSI SH 100cm Guide Catheter Cole .014 [employer] [place] Straight 190cm José Miguel Sci EMERGE MR 2.00x12 BALLOON José Miguel Sci Synergy MR TAMI 3.50x38 José Miguel Sci NC EMERGE MR 4.00x12 BALLOON LESION SITE: RCA (Proximal) Lesion Complexity: High/C, lesion at bifurcation: No, thrombus present: No, lesion length: 16 mm, cul prit lesion: No Pre Stenosis: 75 % Pre intervention ARLIN flow: 3 PROCEDURE: Drug Eluting Stent with pre and post dilatation Post Stenosis: 0 % Post intervention ARLIN flow: 3 Lesion Devices: Cook 6F 45cm Sheath Medtronic 6 Fr HSI SH 100cm Guide Catheter Cole .014 [employer] [place] Straight 190cm José Miguel Sci EMERGE MR 2.00x12 BALLOON José Miguel Sci Synergy MR TAMI 3.50x16 José Miguel Sci NC EMERGE MR 4.00x12 BALLOON COMPLICATIONS No Complications PROCEDURE MEDICATIONS Oxygen: 2 L/min via nasal cannula Heparin 6000 unit(s) IV 11/07/2018 11:13:03 Nitro 200 mcg IC 11/07/2018 11:13:51 Nitro 200 mcg IC 11/07/2018 11:13:51 IV Bolus: .9 NaCl 275 ml total 11/07/2018 11:15:18 SUMMARY OF HEMODYNAMIC DATA Time AIR REST ECG 09:11:27 AO 116/58 (83) SA 11:13:36 Signed By Kvng Esquivel MD On 11/07/2018 12:01:29 PM Kvng Esquivel MD
--- NOTE | 2018-11-07 12:27 | EKG12_ITS ---
Test Reason : AM EKG Blood Pressure : / mmHG Vent. Rate : 099 BPM Atrial Rate : 099 BPM P-R Int : 142 ms QRS Dur : 092 ms QT Int : 360 ms P-R-T Axes : 086 077 073 degrees QTc Int : 462 ms Normal sinus rhythm Normal ECG When compared with ECG of 07-NOV-2018 12:21, MANUAL COMPARISON REQUIRED, DATA IS UNCONFIRMED Confirmed by FRANDY ESQUIVEL ([id number]), script editor CHRISTIANE ARANDA ([id number]) on 11/14/2018 2:07:52 PM Referred By: Frandy Esquivel Confirmed By:FRANDY ESQUIVEL
[2018-11-07] MEDS: 0.9% Normal Saline 1,000 ML 150 ML IV (12:30)
[2018-11-07 12:51] LABS: ACT Activated Clotting Time 186 sec (74-137)
[2018-11-07] MEDS: Albuterol 2.5 MG/3 ML VIAL.NEB. INHALATION ×2 (13:39→17:06)
--- NOTE | 2018-11-07 13:44 | CRPHASE1 ---
Patient Communication PHII Cardiac Rehab Discussed with Patient:: Yes Guide to Cardiac Rehab Given to Patient:: Yes Cardiac Rehab Facility Choice List Given to Patient:: Yes American Indian Policy Specialist:: Kvng Esquivel PCP:: Dutch Lee III Refer Phase II Cardiac Rehab:: Yes Risk Factors/Lifestyle Smoking Status: Former smoker Hx Hypertension: No Hx Diabetes Mellitus Type 2: Yes Height: 5 ft 7 in Weight:: 150 lb BMI: 23.5 Family History: Family History (Last Updated 10/27/18 @ 11:37 by JC Mckeon) Mother CAD (coronary artery disease) Hypertension Brother CAD (coronary artery disease) Hypertension Other Heart disease Phase I Education Given On:: Bud, Nutrition, Antiplatelet medication, CHF, Smoking cessation, Diabetes - Type I, Diabetes - Type II Medical/Surgical History [place]:: No CAD:: Yes Pulmonary:: Yes COPD:: Yes Diabetes Type II:: Yes - according to H & P, Pt states borderline Hypertension:: No Cancer:: Yes - lung, lobectomy Renal:: Yes - 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 Cardiac rehabilitation programs are recognized as integral to the continued care of the patient with coronary heart disease. The cardiac rehabilitation program is designed to optimize a patient's physical, psychological, and social functioning. Health plant health care technician work in cardiac rehabilitation programs and assist you with getting the treatments you need to get stronger and healthier - like exercise, healthy eating habits, and medications. Cardiac rehabilitation has been show to help people with heart problems live longer and have better life enjoyment than people who do not go to cardiac rehabilitation. Please contact the Cardiac Rehabilitation Program at [facility] at in two weeks if you have not heard from them.
--- NOTE | 2018-11-07 13:51 | CRPH1.INST_ITS ---
General Education CAD and cardiac anatomy and function:: Not instructed Explanation of diagnoses and procedures:: Not instructed Sign/Symptoms of DC:: Not instructed Antiplatelet therapy: Patient communicates acknowledgment, Needs reinforcement Proper use of NTG-SL: Patient communicates acknowledgment, Needs reinforcement Emergency procedures and activation of EMS: Patient communicates acknowledgment, Needs reinforcement Compliance of all prescribed medications: Patient communicates acknowledgment, Needs reinforcement Smoking Recommendations Include:: Smoking cessation strategies/Smoking packet, Second- hand smoke recommendation, Participation in a smoking cessation program, Previous smoker; encourage continued cessation - previous smoker Nicotine/Smoking Response Code:: Not instructed Dyslipidemia Recommendations Include:: Lipid profile not available Dyslipidemia Response Code:: Not instructed Overweight/Obesity Patient Overweight/Obesity Risk Factors Are:: BMI Normal [18-25 & < 65 years old] Overweight/Obesity:: Not instructed Hypertension Patient Hypertension Risk Factors Are:: No documented hx of HTN Heart Disease Heart Disease Response Code:: Not instructed Diabetes Diabetes:: Not instructed Metabolic Syndrome Metabolic Syndrome Response Code:: Not instructed Sedentary Sedentary Response Code:: Not instructed Stress Stress Response Code:: Not instructed
[2018-11-07 14:15] LABS: ACT Activated Clotting Time 147 sec (74-137)
--- NOTE | 2018-11-07 15:30 | DCINST_ITS ---
Discharge Diet: Low fat/ Low Cholesterol Discharge Activity: Return to Normal Activity May shower in (days): 1 - No tub baths for 5 days May resume sexual activity in: 1-2 weeks Lifting Restrictions: Do not lift anything greater than 10 pounds for 3 days Call your doctor if your incision/area has: Continuous Slow Oozing, Sudden Increased Bleeding, Increased Pain/ Swelling, Increased Redness, Foul Smelling Discharge, Swelling at the incision site Call your doctor if you observe: Fever of 101 or Higher, Shortness of breath, Chest pain Additional Instructions: You will continue with aspirin and Plavix therapy. He will remain on Plavix for at least one year. If anyone asks you to stop your Plavix please call the [facility] Office at [phone] first. You will keep your office appointment with Dr. Duarte on 11/14/2018 at 1:15 PM. You are started on a new blood pressure medication that is also suited for those with coronary artery disease. This medication is called losartan and is taken once a day. If you have any questions or concerns please call the [facility] Office at [phone]. Allergies/Adverse Reactions: Allergies gabapentin Allergy (Unknown, Verified 10/27/18 19:06) Unknown acetylcysteine [From Mucomyst] Allergy (Verified 10/27/18 19:06) Shortness of breath alprazolam [From Xanax] Allergy (Verified 10/27/18 19:06) breathing issues belladonna alkaloids Allergy (Verified 10/27/18 19:06) Unknown cephalexin Allergy (Verified 10/27/18 19:06) Unknown ciprofloxacin [From Cipro] Allergy (Verified 10/27/18 19:06) Unknown dicyclomine Allergy (Verified 10/27/18 19:06) Unknown diltiazem Allergy (Verified 10/27/18 19:06) Unknown doxycycline Allergy (Verified 10/27/18 19:06) Shortness of breath ezetimibe Allergy (Verified 10/27/18 19:06) Unknown fluvastatin Allergy (Verified 10/27/18 19:06) Unknown metoprolol [From Toprol XL] Allergy (Verified 10/27/18 19:06) Unknown nitrofurantoin Allergy (Verified 10/27/18 19:06) Unknown phenobarbital Allergy (Verified 10/27/18 19:06) Unknown prochlorperazine [From Compazine] Allergy (Verified 10/27/18 19:06) Unknown simvastatin [From Zocor] Allergy (Verified 10/27/18 19:06) Unknown Kipnieg-Jeh-Agv Reductase Inhibitor Allergy (Verified 10/27/18 19:06) Unknown sulfamethoxazole [From Bactrim] Allergy (Verified 10/27/18 19:06) Unknown tamsulosin [From Flomax] Allergy (Verified 10/27/18 19:06) Unknown trimethoprim [From Bactrim] Allergy (Verified 10/27/18 19:06) Unknown carvedilol Adverse Reaction (Verified 10/27/18 19:06) Vomiting Medications to take at Discharge Aspirin [Aspirin, Baby] 81 mg PO DAILY@0800 11/13/15 Budesonide/Formoterol 160/4.5 [Symbicort 160/4.5 Mcg Inhaler (SP)] 2 puff INHALATION BID 11/13/15 Doxazosin Mesylate [Cardura] 4 mg PO QHS 11/13/15 Finasteride [Proscar] 5 mg PO DAILY 11/13/15 Mirtazapine [Remeron] 30 mg PO QHS 11/13/15 Omeprazole [Prilosec] 20 mg PO DAILY 11/13/15 Theophylline [Kevin-Dur] 300 mg PO BID 11/13/15 prednisoLONE eye drops (1 mL) [Pred Forte eye drops (1 mL)] 1 drp RIGHT EYE 4X/DAY PRN PRN 11/13/15 Guaifenesin [Mucinex] 1,200 mg PO BID PRN 07/29/17 Albuterol Inhaler [Ventolin Hfa] 1 - 2 puff INHALATION Q4H PRN PRN #1 inhaler 08/26/17 Ipratropium/Albuterol Sulfate [Duoneb] 3 ml INHALATION 4X/DAY PRN 03/11/18 Nitroglycerin (INPATIENT USE) [Nitrostat] 0.4 mg SUBLINGUAL Q5M PRN 03/11/18 Roflumilast [Daliresp] 500 mcg PO DAILY 03/11/18 Azithromycin 250 mg PO DAILY 10/10/18 Furosemide [Lasix] 20 mg PO QWEEK PRN 10/10/18 Lorazepam [Ativan] 1 mg PO BID PRN PRN 10/27/18 Magnesium Citrate [Citrate Of Magnesia] 300 ml PO X1 #1 bottle 10/27/18 primidone 50 mg tablet 50 mg PO BID tab 10/27/18 clopidogrel 75 mg tablet 75 mg PO DAILY #90 tab 11/07/18 Losartan Potassium [Cozaar] 12.5 mg PO DAILY tab 11/08/18 Primary Care Physician: Dutch Lee III, MD [Primary Care Provider] - Test Results: Test results from this visit will be discussed in further detail at your follow- up appointment, if applicable. Please Follow Up With: Dr. Duarte When: 11/14/2018 at 1:15 Cardiac Rehabilitation Info Cardiac Rehabilitation Program Information: Cardiac Rehabilitation is important for patients like you who are recovering from a heart problem. Cardiac rehabilitation programs are recognized as integral to the continued care of the patient with coronary heart disease. The cardiac rehabilitation program is designed to optimize a patient's physical, psychological, and social functioning. Health neurocritical care physician work in cardiac rehabilitation programs and assist you with getting the treatments you need to get stronger and healthier - like exercise, healthy eating habits, and medications. Cardiac rehabilitation has been show to help people with heart problems live longer and have better life enjoyment than people who do not go to cardiac rehabilitation. Please contact the Cardiac Rehabilitation Program at [facility] at in two weeks if you have not heard from them.
[2018-11-07] MEDS: LORazepam 1 MG Tablet PO ×2 (16:47→21:26)
[2018-11-07] MEDS: Budesonide Respules 0.5 MG/2 ML AMPUL.NEB. INHALATION (17:06)
[2018-11-07] MEDS: Pantoprazole Sodium 20 MG Tablet PO (17:35)
[2018-11-07] MEDS: Ipratropium/Albuterol Sulfate 3 ML AMPUL.NEB INHALATION (21:03)
[2018-11-07] MEDS: Doxazosin 4 MG Tablet PO (21:27)
[2018-11-07] MEDS: Primidone 50 MG Tablet PO (21:28)
[2018-11-07] MEDS: Mirtazapine 15 MG Tablet 30 MG PO (21:28)
[2018-11-07] MEDS: ROFLUMILAST 500 MCG TABLET 250 MCG PO (21:29)
[2018-11-07] MEDS: guaiFENesin 1,200 MG Tablet 1200 MG PO (21:44)
[2018-11-08] VITALS (16 sets, daily range): BP systolic 115–193; BP diastolic 48–87; PULSE 88–116; RESP 15–22; TEMP 36.4–36.9; O2SAT 95–98
[2018-11-08] MEDS: Ipratropium/Albuterol Sulfate 3 ML AMPUL.NEB INHALATION ×2 (01:56→10:25)
[2018-11-08] MEDS: Albuterol 2.5 MG/3 ML VIAL.NEB. INHALATION (05:33)
[2018-11-08] MEDS: Budesonide Respules 0.5 MG/2 ML AMPUL.NEB. INHALATION (05:37)
[2018-11-08 06:43] LABS: Hematocrit 34.8 % (40-54); Hemoglobin 11.6 g/dL (13.0-16.5); Mean Corp Hgb Conc 33.3 g/dL (32-36); Mean Corpuscular Hgb 29.1 pg (27.0-32.0); Mean Corpuscular Volume 87.4 fL (80-94); Platelet Count 187 K/mm3 (150-450); RBC Distribution Width CV 13.9 % (11.6-14.6); RBC Distribution Width SD 44.4 fl (35.1-43.9); Red Blood Count 3.98 M/mm3 (4.6-6.2); White Blood Count 3.8 K/mm3 (4.4-11.0)
[2018-11-08 06:44] LABS: POSITIVE COUNT NO; POSITIVE DIFFERENTIAL NO; POSITIVE MORPHOLOGY NO
[2018-11-08 06:48] LABS: Absolute Lymphocyte Count 0.85 X10^3/uL (0.83-4.51); Absolute Neutrophil Count 2.2 X10^3/uL (2.0-7.7); Basophil# 0.04 X10^3/uL; Basophil% 1.1 % (0-1); Eosinophil# 0.24 X10^3/uL; Eosinophils% 6.4 % (0-5); Lymphocyte # 0.85 X10^3/ul (4.0); Lymphocyte % 22.5 % (19-41); Monocyte# 0.47 X10^3/uL; Monocyte% 12.5 % (0-10); NRBC Flagged by Analyzer 0 % (0-5); Neutrophil # 2.16 X10^3/uL (2.7-7.7); Neutrophil % 57.2 % (47-70)
[2018-11-08 06:49] LABS: Anion Gap 6 (5-15); BUN 11 mg/dL (7-18); BUN/Creat Ratio 11.3 RATIO (10-20); Calcium,Total 8.6 mg/dL (8.5-10.1); Chloride 110 mmol/L (98-107); Creatinine, Serum 0.98 mg/dL (0.70-1.30); EST Glomerular Filtration Rate 79 mL/min (>60); Est Glom Filt Rate - Afr Amer 95 mL/min (>60); Estimated Creatinine Clearance 56.21 ml/min; Glucose 103 mg/dL (74-106); Potassium 3.6 mmol/L (3.5-5.1); Sodium Level 141 mmol/L (136-145)
--- NOTE | 2018-11-08 07:08 | PCM.PN.BLA ---
Progress Note Patient has been intolerant to beta-marry such as metoprolol and carvedilol. He also has been intolerant to multiple statin medications. Thus, he is not discharged on either class of medication despite his history of coronary artery disease.
[2018-11-08] MEDS: Clopidogrel Bisulfate 75 MG Tablet PO (08:29)
[2018-11-08] MEDS: Primidone 50 MG Tablet PO (08:30)
[2018-11-08] MEDS: Azithromycin 250 MG Tablet PO (08:30)
[2018-11-08] MEDS: Pantoprazole Sodium 20 MG Tablet PO (08:30)
[2018-11-08] MEDS: Losartan Potassium 25 MG Tablet 12.5 MG PO (08:31)
[2018-11-08] MEDS: Finasteride 5 MG Tablet PO (08:32)
[2018-11-08] MEDS: ROFLUMILAST 500 MCG TABLET 250 MCG PO (08:34)
[2018-11-08] MEDS: Aspirin 81 MG TAB.CHEW PO (08:36)
[2018-11-08] MEDS: LORazepam 1 MG Tablet PO (08:38)
--- NOTE | 2018-11-08 09:21 | PN.CARD_ITS ---
Subjectve: Patient doing very well this morning, no 24-hour events. Telemetry negative. EKG shows normal sinus rhythm, normal axis, no acute changes. Right groin is clean/dry/intact, no thrills, bruits or hematoma. Hemoglobin and creatinine are within nominal limits. Objective: Vital Signs Temp Pulse Resp BP Pulse Ox 98.4 F 99 19 H 164/83 H 97 11/08/18 04:00 11/08/18 08:00 11/08/18 08:00 11/08/18 08:00 11/08/18 08:00 Oxygen Delivery Method Room Air Weight: 154 lb 5.177 oz Body Mass Index (BMI) 23.9 Intake and Output for Last 24 Hours 11/06/18 11/07/18 11/08/18 23:59 23:59 23:59 Intake Total 1490 / 1730 240 / 240 Output Total 350 / 1050 1500 / 1500 Balance 1140 / 680 -1260 / -1260 General: Awake, Alert, Oriented x 3 HEENT: PERRL, EOMI, Sclera Non Icteric Neck: Supple, Good ROM, No Lymph Node Enlargement Lungs: Clear to auscultation Cardiovascular: Regular Rhythm, Normal S1, Normal S2, No Murmurs, No Rubs, No Gallops Vascular: No Carotid Bruits, Normal Femoral Pulses, Normal Radial Pulses, Normal Dorsalis Pedal Pulse, Normal Posterior Tibial Pulses Abdomen: Bowel Sounds Present, Soft, Non Tender, No HSM, No Organomegaly Extremities: No Cyanosis, No Clubbing, No edema Neurological: No Focal Motor or Sensory Deficit 11/08/18 05:10: WBC 3.8 L, RBC 3.98 L, Hgb 11.6 L, Hct 34.8 L, MCV 87.4, MCH 29.1, MCHC 33.3, Plt Count 187, MPV 10.0, Immature Gran % (Auto) 0.300, Neut % (Auto) 57.2, Lymph % (Auto) 22.5, [place] % (Auto) 12.5 H, Eos % (Auto) 6.4 H, Baso % (Auto) 1.1 H, Absolute Neuts (auto) 2.2, Nucleated RBC % 0 11/08/18 05:10: Sodium 141, Potassium 3.6, Chloride 110 H, Carbon Dioxide 25.0, Anion Gap 6, BUN 11, Creatinine 0.98, Est GFR (MDRD) Af Amer 95, Est GFR (MDRD) Non-Af 79, BUN/Creatinine Ratio 11.3, Glucose 103, Calcium 8.6 Rhythm: EKG: ECHO: Stress Test: Cardiac Cath: PCI: CT Surgery: Holter monitor: EPS: PPM: CXR: Chest CT Scan: Medical Necessity - Tobacco Use Smoking Status: Former smoker Assessment/Plan 1. Coronary artery disease: Patient underwent successful elective angioplasty and drug-eluting stenting x2 to the proximal mid right coronary artery with an excellent result. This is on top of his previous angioplasty and stenting to his LAD and left circumflex several weeks ago. The patient will continue baby aspirin and Plavix for life, and be discharged home. We will start him on losartan 12.5 mrem p.o. daily and titrate up from there as an outpatient. He will continue his other antihypertensive medications. The patient will be enrolled in cardiac rehab in 2 weeks time once his groin is healed from these 2 procedures. 2. Hyperlipidemia: Unfortunate the patient is unable to tolerate statins. We will begin gemfibrozil 6 mg p.o. twice daily. 3. Patient will follow-up with Dr. Duarte going forward. Code Visit Inpatient E&M: 49685 Subs Hosp L2
--- NOTE | 2018-11-08 10:00 | EKG12_ITS ---
Test Reason : POST PCI Blood Pressure : / mmHG Vent. Rate : 085 BPM Atrial Rate : 085 BPM P-R Int : 148 ms QRS Dur : 090 ms QT Int : 384 ms P-R-T Axes : 086 084 081 degrees QTc Int : 456 ms Normal sinus rhythm Low voltage QRS (Limb Leads) Confirmed by KAMRAN STOUT, JOHN ([id number]), art editor CHRISTIANE ARANDA ([id number]) on 11/15/2018 1:09:15 PM Referred By: Kvng Esquivel Confirmed By:JOHN ANDREW MD
--- NOTE | 2018-11-11 09:51 | PCM.HP.BLA ---
Problem List (1) Abnormal stress test Status: Acute (2) Chest pain Status: Acute (3) CAD in [place] artery Status: Chronic (4) S/P coronary artery stent placement Status: Chronic Comment: PTCA/TAMI of the prox Diag #1, PTCA/TAMI of the prox LAD, PTCA/TAMI of the mid LCX 10/09/18 History and Physical Date of Admission: 11/07/18 [facility] [address] [place] [address] OFFICE VISIT Date of Service: 10/27/18 MR#:[id number] Name: NIESHA SHUKLA HRep #:[id number] : 1940 Provider:Yuko Aguirre Age/Sex: 78/M Location:[facility] Status:Signed HPI HPI History of Present Illness Details: The patient is a 78 year old that presents here today for a hospital follow up. He was admitted through [facility] ED on 10/10/2018 with a complaint of episodic shortness of breath followed by chest pain and said he just did not feel well. Initial troponin was negative and EKG showed normal sinus rhythm with no acute ST changes. He was admitted to be managed for chest pain to rule out ACS. Troponins x3 were negative. He had an abnormal stress test and cardiology was consulted. Patient had a cardiac cath on 10/12/2018 with drug-eluting stent placement in the diagonal artery, proximal LAD and mid left circumflex arteries. With plans to do a staged PCI for his RCA. He does have a history of coronary artery disease with previous stenting to his RCA in 1995, COPD with history of lung malignancy with lobectomy, diabetes and obstructive sleep apnea. He has not needed to use any NTG. He does have COPD and this affects his SOB. He does not have any orthopnea. He does not have any lightheadedness/dizziness. He does not have any palpitations. He does have some edema in his feet. He does not have any claudication. He does not feel that he will be doing cardiac rehab. Patient now returns to the [facility] to complete cardia vascular revascularization percutaneously in a staged fashion to his right coronary artery. Patient has had minor chest pain with exertion since angioplasty and stenting, but much improved since his last visit. Intake Vital Signs 10/27/18 Height 5 ft 6 in 10/27/18 Weight: 156 lb 10/27/18 Body Mass Index (BMI) 25.2 10/27/18 Blood Pressure 129/76 H 10/27/18 Blood Pressure Location Lt brachial 10/27/18 Blood Pressure Position Sitting 10/27/18 Respiratory Rate 18 10/27/18 Pulse Rate 98 10/27/18 Pulse Source Monitor 10/27/18 Pulse Ox 98 Intake Visit Reasons: CP/ SOB Shot Dropper Required: No Accompanied by: Is patient in pain?: No Allergies gabapentin Allergy (Unknown, Verified 10/27/18 19:06) Unknown acetylcysteine [From Mucomyst] Allergy (Verified 10/27/18 19:06) Shortness of breath alprazolam [From Xanax] Allergy (Verified 10/27/18 19:06) breathing issues belladonna alkaloids Allergy (Verified 10/27/18 19:06) Unknown cephalexin Allergy (Verified 10/27/18 19:06) Unknown ciprofloxacin [From Cipro] Allergy (Verified 10/27/18 19:06) Unknown dicyclomine Allergy (Verified 10/27/18 19:06) Unknown diltiazem Allergy (Verified 10/27/18 19:06) Unknown doxycycline Allergy (Verified 10/27/18 19:06) Shortness of breath ezetimibe Allergy (Verified 10/27/18 19:06) Unknown fluvastatin Allergy (Verified 10/27/18 19:06) Unknown metoprolol [From Toprol XL] Allergy (Verified 10/27/18 19:06) Unknown nitrofurantoin Allergy (Verified 10/27/18 19:06) Unknown phenobarbital Allergy (Verified 10/27/18 19:06) Unknown prochlorperazine [From Compazine] Allergy (Verified 10/27/18 19:06) Unknown simvastatin [From Zocor] Allergy (Verified 10/27/18 19:06) Unknown Kkplkqv-Mwp-Bze Reductase Inhibitor Allergy (Verified 10/27/18 19:06) Unknown sulfamethoxazole [From Bactrim] Allergy (Verified 10/27/18 19:06) Unknown tamsulosin [From Flomax] Allergy (Verified 10/27/18 19:06) Unknown trimethoprim [From Bactrim] Allergy (Verified 10/27/18 19:06) Unknown carvedilol Adverse Reaction (Verified 10/27/18 19:06) Vomiting Medications Aspirin [Aspirin, Baby] 81 mg PO DAILY@0800 11/13/15 [History Confirmed 10/27/18] Budesonide/Formoterol 160/4.5 [Symbicort 160/4.5 Mcg Inhaler (SP)] 2 puff INHALATION BID 11/13/15 [History Confirmed 10/27/18] Doxazosin Mesylate [Cardura] 4 mg PO QHS 11/13/15 [History Confirmed 10/27/18] Finasteride [Proscar] 5 mg PO DAILY 11/13/15 [History Confirmed 10/27/18] Mirtazapine [Remeron] 30 mg PO QHS 11/13/15 [History Confirmed 10/27/18] Omeprazole [Prilosec] 20 mg PO DAILY 11/13/15 [History Confirmed 10/27/18] Theophylline [Kevin-Dur] 300 mg PO BID 11/13/15 [History Confirmed 10/27/18] prednisoLONE eye drops (1 mL) [Pred Forte eye drops (1 mL)] 1 drp RIGHT EYE 4X/DAY PRN PRN 11/13/15 [History Confirmed 10/27/18] Guaifenesin [Mucinex] 1,200 mg PO BID PRN 07/29/17 [History Confirmed 10/27/18] Albuterol Inhaler [Ventolin Hfa] 1 - 2 puff INHALATION Q4H PRN PRN #1 inhaler 08/26/17 [Rx Confirmed 10/27/18] Ipratropium/Albuterol Sulfate [Duoneb] 3 ml INHALATION 4X/DAY PRN 03/11/18 [History Confirmed 10/27/18] Nitroglycerin (INPATIENT USE) [Nitrostat] 0.4 mg SUBLINGUAL Q5M PRN 03/11/18 [History Confirmed 10/27/18] Roflumilast [Daliresp] 500 mcg PO DAILY 03/11/18 [History Confirmed 10/27/18] Azithromycin 250 mg PO DAILY 10/10/18 [History Confirmed 10/27/18] Furosemide [Lasix] 20 mg PO QWEEK PRN 10/10/18 [History Confirmed 10/27/18] Lorazepam [Ativan] 1 mg PO BID PRN PRN 10/27/18 [History Confirmed 10/27/18] Magnesium Citrate [Citrate Of Magnesia] 300 ml PO X1 #1 bottle 10/27/18 [Rx] clopidogrel 75 mg tablet 75 mg PO DAILY #90 tab 10/27/18 [Rx Confirmed 10/27/18] primidone 50 mg tablet 50 mg PO BID tab 10/27/18 [History Confirmed 10/27/18] PFSH Medical History (Updated 10/28/18 @ 10:43 by JC Mckeon) Atherosclerotic heart disease of [place] coronary artery without angina pectoris (Chronic) CARLIN (obstructive sleep apnea) (Chronic) History of malignant neoplasm of lung (Chronic) BPH (benign prostatic hyperplasia) (Chronic) GERD (gastroesophageal reflux disease) (Chronic) COPD (chronic obstructive pulmonary disease) (Chronic) Type II diabetes mellitus (Chronic) Surgical History (Updated 10/27/18 @ 11:36 by JC Mckeon) S/P coronary artery stent placement (Chronic ~10/09/18) History of lobectomy of lung (Chronic) H/O heart artery stent (Chronic) Family History (Updated 10/27/18 @ 11:37 by JC Mckeon) Mother CAD (coronary artery disease) Hypertension Brother CAD (coronary artery disease) Hypertension Other Heart disease Social History (Updated 10/28/18 @ 10:53 by JC Mckeon) Smoking Status: Former smoker ROS Const Const: Negative for fatigue, weakness, fever(s) or headache(s) Eyes Eyes: Negative for blind spots, loss of peripheral vision or transient loss of vision ENT ENT: Negative for headache(s), dizziness, tinnitus or Nosebleed/epistaxis Cardio Chest Pain: No Palpitations: No Edema: None Muscle aches with walking: None Resp Respiratory: Positive for SOB with activity; negative for SOB at rest, SOB orthopnea\SOB lying down or Cough GI GI: Negative nausea, vomiting, heartburn or vomiting blood/hematemesis : Negative for hematuria Musc Musc: Negative for muscle aches/ myalgia Neuro Neuro: Negative for dizziness, lightheadedness, near syncope, syncope, orthostatic symptoms, headache(s) or weakness Brian Hematologic/Lymphatic: Negative for easy bleeding Endo Endo: Negative for fatigue Cardiology Exam Const Appearance: cooperative, no acute distress, well developed and other (in WC) Orientation: alert, awake and oriented x3 Head Head: normocephalic and atraumatic Mouth: moist mucous membranes Eyes General: appearance normal, both eyes and all related structures Conjunctivae: conjunctivae normal Pupils: PERRL EOM: EOM intact bilaterally Neck Neck: normal visual inspection, no lymphadenopathy and no JVD Carotids: Negative bruit Neck Mass: Negative Neck mass Chest Chest inspection: normal inspection of the chest and symmetric chest movement Auscultation: Bilateral: Clear to Auscultation Cardio Palpation: normal PMI Rate: regular rate Rhythm: regular rhythm Heart sounds: S1 normal and S2 normal; negative rub, gallop or murmur GI GI: normal to inspection, soft, no hepatosplenomegaly and bowel sounds present; negative tender Neuro General: alert, awake, oriented x3, CN's II-XI intact bilaterally and moves all extremities Extremities Pulses: Normal: Right Posterior Tibial Pulse, Left Posterior Tibial Pulse, Right Radial Pulse, Left Radial Pulse Lower Extremity Edema: None: Bilateral Psych Psychological: normal affect Assessment & Plan 1. Atherosclerosis of [place] coronary artery of [place] heart without angina pectoris I25.10 Plan Symptoms have improved some with stenting, will proceed will staged PCI to RCA. This is scheduled for 11/[address] Esquivel. He is aware he needs to stay on his plavix and ASA. He is not able to tolerate betablockers or MARY/ARBs. Nor has he been able tolerate statins. Orders Orders: Carotid Duplex Ultrasound 10/27/18 2. Right carotid bruit R09.89 Plan Patient does have a right carotid bruit, would like to obtain a carotid ultrasound to further evaluate. Orders Orders: Carotid Duplex Ultrasound 10/27/18 Plan Detail Other Medications Refilled: clopidogrel 75 mg PO DAILY 90 tabs 3RF Additional Comments Patient will follow-up with us after his heart catheterization. Follow Up 10/27/18 (schedule with [facility] 4-6 weeks- previous pt of [facility]- PFN[facility] seen in hospital) Coding Level of Care Code Off vis,est,level 4 Diagnoses Atherosclerosis of [place] coronary artery of [place] heart without angina pectoris I25.10 [place] vs. transplanted heart: [place] heart Right carotid bruit R09.89 Coding Level of Care Code Off vis,est,level 4 Diagnoses Atherosclerosis of [place] coronary artery of [place] heart without angina pectoris I25.10 [place] vs. transplanted heart: [place] heart Right carotid bruit R09.89 Supplemental Info Supplemental Information PCI 10/2018: Successful PTCA/TAMI of proximal DIAG#1 with a 2.25 x 16 Promus Synergy, 75%-->0%, no dissection. Successful PTCA/TAMI proximal LAD with a 2.5 x 12 Promus Synergy, post dilated with a 3.0 x 8 NC in proximal portion of stent only; 75%-->0%, no dissection. Successful PTCA/TAMI mid LCX with a 2.5 x 38 Promus Synergy stent, post dilated throughout with a 2.5 x 12 NC Balloon; 75%-->0%, no dissection or plaque shift into OM#1. Cardiac Cath 2019: DOMINANCE: Right Dominant LEFT HEART ASSESSMENT Left Ventricular Ejection Fraction: by LV Gram 55 % Normal LV wall motion Elevated Left Ventricular End Diastolic Pressure LVEDP: 20 mmHg LEFT MAIN: Mild calcification LEFT ANTERIOR DESCENDING ARTERY: PROX LAD: Mild calcification, 90 % Stenosis DIAGONAL 1: Proximal - 90 % Stenosis CIRCUMFLEX ARTERY: PROX CIRC: Mild calcification, 85 % Stenosis MID CIRC: 85 % Stenosis RIGHT CORONARY ARTERY: PROX RCA: Diffuse: 75 % Stenosis MID RCA: Previously placed stent has an instent 85 % restenosis RT PLV: Mild luminal irregularities RT PDA: Proximal - 25 - 50 % Stenosis RIGHT AV SEGMENT: Mild luminal irregularities VALVE FINDINGS: Normal Aortic Valve function Mitral Valve Insufficiency - Grade 2 AORTIC ROOT: Angiographically normal Echocardiogram 2019: Left ventricular systolic function is normal. The estimated ejection fraction is 70 %. Anterior leaflet diffuse mitral valve thickening. Trivial mitral valve insufficiency. Trivial tricuspid valve insufficiency. Mild diffuse aortic valve thickening. Mild diffuse aortic valve calcification. Small pericardial effusion. There are no echocardiographic indications of cardiac tamponade. Unable to estimate RV systolic pressure/pulmonary artery pressure due to technically difficult study. Diastolic function is indeterminate. Comment: C/W the previous TTE of 08/25/2017 there are similar type changes. Stress test 2019: 1. Rest and stress SPECT current nuclear imaging demonstrate the appearance of diminished tracer uptake in portions of the mid to distal anterior segment status post stress concerning for an area of stress-induced myocardial ischemia. 2. The gated Cardiolite study reports an LVEF of 59 %. Diagnostics Electrocardiogram 10/12/18 Echocardiogram 10/11/18 Stress Test Nuclear Medicine 10/11/18 Stress Test 10/11/18 Cardiac Catheterization 10/12/18 Chest X-Ray 10/10/18 10/28/18 1053<Electronically signed by Yuko GREENE> Date Yuko GREENE The above note was thoroughly reviewed, and agree with above. Patient will proceed with elective PCI of the RCA today. He will then follow-up with Dr. Duarte going forward. Misty Signature:Date (if applicable) CC: ~
== END 2018-11-08 10:45 | disposition home or self-care (01) ==
LOC: CLSP 08:46 → ICU 11-08 14:36
PROVIDERS: Family Provider Family Medicine; PCP Family Medicine; Referring Provider Internal Medicine Cardiovascular Disease; Visit Provider Internal Medicine Cardiovascular Disease
DX: I25.10 Atherosclerotic heart disease of native coronary artery without angina pectoris (principal); R09.89 Other specified symptoms and signs involving the circulatory and respiratory systems; G47.33 Obstructive sleep apnea (adult) (pediatric); N40.0 Benign prostatic hyperplasia without lower urinary tract symptoms; K21.9 Gastro-esophageal reflux disease without esophagitis; J44.9 Chronic obstructive pulmonary disease, unspecified; E11.9 Type 2 diabetes mellitus without complications; Z85.118 Personal history of other malignant neoplasm of bronchus and lung; Z95.5 Presence of coronary angioplasty implant and graft; Z79.82 Long term (current) use of aspirin; Z79.899 Other long term (current) drug therapy; Z87.891 Personal history of nicotine dependence
CPT/HCPCS: 80048; 85025; 85347; 92928; 93005; 94640; 97802; J7030; J7040; Q9967; C1725; C1769; C1874; C1887; C1894; C9600

== ENCOUNTER → 2018-11-17 | Outpatient (CLI) | payer MEDICARE, BC, SELFPAY ==
[2018-11-07 12:27] VITALS: BMI 23.9
[2018-11-07 13:51] VITALS: BMI 23.5
[2018-11-14 13:18] VITALS: BMI 25.0
--- NOTE | 2018-11-17 10:29 | CR.HP_ITS ---
CR - History & Physical - General Arrival date:: 11/17/18 Arrival time:: 10:29 Date of Referral:: 11/17/18 Date of CR Evaluation:: 11/17/18 Referring Physician: Dr. Jennifer Esquivel Primary Diagnosis: PTCA with stent - History of Present Cardiac Event Onset Date: Enter Onset Date of cardiac illnesses in Comment field below Current stable Angina Pectoris:: No Acute Myocardial Infarction within 12 months:: No Coronary Artery Bypass Graft:: No Heart valve replacement or repair:: No PTCA or coronary stenting:: Yes - 10/12/18 Heart or Heart-Lung Transplant:: No Heart Failure EF <35%:: No Type of Symptoms:: didn't feel well, SOB. Interventions with present event:: PTCA with stent Were there any complications?: no - Medications Home Medications: Ambulatory Orders Medication Instructions Recorded Aspirin [Aspirin, Baby] 81 mg PO DAILY@0800 11/13/15 Budesonide/Formoterol 160/4.5 2 puff INHALATION BID 11/13/15 [Symbicort 160/4.5 Mcg Inhaler (SP)] Doxazosin Mesylate [Cardura] 4 mg PO QHS 11/13/15 Finasteride [Proscar] 5 mg PO DAILY 11/13/15 Mirtazapine [Remeron] 30 mg PO QHS 11/13/15 Omeprazole [Prilosec] 20 mg PO DAILY 11/13/15 Theophylline [Kevin-Dur] 300 mg PO BID 11/13/15 prednisoLONE eye drops (1 mL) 1 drp RIGHT EYE 4X/DAY PRN PRN 11/13/15 [Pred Forte eye drops (1 mL)] Guaifenesin [Mucinex] 1,200 mg PO BID PRN 07/29/17 Albuterol Inhaler [Ventolin Hfa] 1 - 2 puff INHALATION Q4H PRN PRN 08/26/17 #1 inhaler Ipratropium/Albuterol Sulfate 3 ml INHALATION 4X/DAY PRN 03/11/18 [Duoneb] Nitroglycerin (INPATIENT USE) 0.4 mg SUBLINGUAL Q5M PRN 03/11/18 [Nitrostat] Roflumilast [Daliresp] 500 mcg PO DAILY 03/11/18 Azithromycin 250 mg PO DAILY 10/10/18 Furosemide [Lasix] 20 mg PO QWEEK PRN 10/10/18 Lorazepam [Ativan] 1 mg PO BID PRN PRN 10/27/18 primidone 50 mg tablet 50 mg PO BID tab 10/27/18 clopidogrel 75 mg tablet 75 mg PO DAILY #90 tab 11/08/18 losartan 25 mg tablet 12.5 mg PO DAILY #45 tab 11/08/18 magnesium citrate oral solution 300 ml PO X1 PRN bottle 11/14/18 - Allergies Allergies/Adverse Reactions: Allergies gabapentin Allergy (Unknown, Verified 11/14/18 13:18) Unknown acetylcysteine [From Mucomyst] Allergy (Verified 11/14/18 13:18) Shortness of breath alprazolam [From Xanax] Allergy (Verified 11/14/18 13:18) breathing issues belladonna alkaloids Allergy (Verified 11/14/18 13:18) Unknown cephalexin Allergy (Verified 11/14/18 13:18) Unknown ciprofloxacin [From Cipro] Allergy (Verified 11/14/18 13:18) Unknown dicyclomine Allergy (Verified 11/14/18 13:18) Unknown diltiazem Allergy (Verified 11/14/18 13:18) Unknown doxycycline Allergy (Verified 11/14/18 13:18) Shortness of breath ezetimibe Allergy (Verified 11/14/18 13:18) Unknown fluvastatin Allergy (Verified 11/14/18 13:18) Unknown metoprolol [From Toprol XL] Allergy (Verified 11/14/18 13:18) Unknown nitrofurantoin Allergy (Verified 11/14/18 13:18) Unknown phenobarbital Allergy (Verified 11/14/18 13:18) Unknown prochlorperazine [From Compazine] Allergy (Verified 11/14/18 13:18) Unknown simvastatin [From Zocor] Allergy (Verified 11/14/18 13:18) Unknown Psiytog-Zem-Rdt Reductase Inhibitor Allergy (Verified 11/14/18 13:18) Unknown sulfamethoxazole [From Bactrim] Allergy (Verified 11/14/18 13:18) Unknown tamsulosin [From Flomax] Allergy (Verified 11/14/18 13:18) Unknown trimethoprim [From Bactrim] Allergy (Verified 11/14/18 13:18) Unknown carvedilol Adverse Reaction (Verified 11/14/18 13:18) Vomiting - Sleep Disorder Evaluation Hx of Sleep Apnea: Yes Do you snore loudly (louder than talking or can be heard through closed doors)?: No Do you often feel tired/ fatigued/ sleepy during daytime?: No Has anyone observed you stop breathing during sleep?: Yes History of Hypertension (for STOP score): No STOP Results: Negative Advanced Directives - Advanced Directives Power of Instrument Checker: Yes Living Will: Yes Advance Directives Information Provided: Yes Advance Directives on File: Yes DNR Order?:: Yes Past Medical History - Past Medical Illness Medical History: Past Medical History (Last Reviewed 11/14/18 @ 13:23 by Yuko Dangelo) S/P coronary artery stent placement (Chronic) Onset Date: ~11/07/18 Z95.5 PTCA/stent to mid RCA @ [facility] 10/18/01; PTCA/TAMI of the prox Diag #1, PTCA/TAMI of the prox LAD, PTCA/TAMI of the mid LCX 10/12/18; PTCA/TAMI to mid RCA and PTCA/TAMI to prox/ostial RCA 11/07/18 Atherosclerotic heart disease of [place] coronary artery without angina pectoris (Chronic) I25.10 Chest pain (Acute) R07.9 Chronic renal failure, stage 2 (mild) (Chronic) N18.2 CARLIN (obstructive sleep apnea) (Chronic) G47.33 GERD (gastroesophageal reflux disease) (Chronic) K21.9 Abnormal stress test (Acute) R94.39 Anxiety disorder (Chronic) F41.9 with panic attacks COPD (chronic obstructive pulmonary disease) (Chronic) J44.9 Type II diabetes mellitus (Chronic) E11.9 BPH (benign prostatic hyperplasia) N40.0 Former smoker Z87.891 quit in the early s History of malignant neoplasm of lung Z85.118 in 2010? - Past Surgical History Surgical History: Past Surgical History (Last Reviewed 11/14/18 @ 13:23 by Yuko Dangelo) 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 BL upper lobes Presence of coronary angioplasty implant and graft Onset Date: ~11/07/18 Z95.5 PTCA/stent to mid RCA @ [facility] 10/18/01; PTCA/TAMI of the prox Diag #1, PTCA/TAMI of the prox LAD, PTCA/TAMI of the mid LCX 10/12/18; ; PTCA/TAMI to mid RCA and PTCA/TAMI to prox/ostial RCA 11/07/18 Surgical History: - - lung reduction surgery and cancer removal.cath with stent 11-12 years ago. Cardiac stenting in 2001 - Family History Summary Family History: Family History (Last Reviewed 11/14/18 @ 13:23 by Yuko Dangelo) Mother CAD (coronary artery disease) Hypertension Brother CAD (coronary artery disease) Hypertension Other Heart disease Social History - Smoking History Smoking Status: Former smoker Hx Tobacco Use: No - Alcohol Use Alcohol Usage: No - Substance Abuse Hx Substance Use: No - Occupation Occupation (List type of work in comments):: Retired - Hobbies, Recreation, Social Activities Hobbies: Other - puzzles Recreational Activities: I am able to engage in most, but not all activities Social Environment - Status Marital Status: - Current Living Arrangements Living Environment:: Spouse - Children How many children do you have?: 1 Do any of your children live nearby?: Yes - Safety Do you feel safe in your surroundings?: Yes - Assistance Do you need any assistance at home?: yes Review of Systems - Review of Systems Hints: Right click = Denies ([place]). Left click = Reports ([place]) Review of Present Symptoms: Reports: Shortness of Breath with Exertion, Appetite - Normal, Sleep - Normal. Denies: Shortness of Breath at Rest, PVD, Operative Discomfort, Angina, Wound Healing, Dizziness/Lightheadedness, Fatigue, Heart Arrhythmia/Irregularities, Appetite - Special Diet, Sexual Changes - Pain Is Patient Pain Free?: Yes Risk Factor Assessment - Vital Signs Pulse Ox: 96 - Pulse Pulse Rate: 108 Pulse Rhythm: Regular - Hypertension Blood Pressure Sitting - Right Arm: 114/50 Blood Pressure Sitting - Left Arm: 110/60 - Stress Stress: Long-standing - Diabetes Diabetic History: Type II - borderline - Obesity Height: 5 ft 7 in Weight:: 150 lb Weight in Pounds: 150.0 lbs Body Mass Index (BMI): 23.5 Nutritional Referral for Obesity: No - Physical Inactivity Physical Inactivity: None - Risk Stratification Risk Guidelines: Lowest Risk: Risk Factor for Smoking, Risk Factor for Dyslipidemia, Risk Factor for Obesity, Risk Factor for Hypertension, Moderate Risk: Risk Factor for Diabetes, Risk Factor for Depression, Highest Risk: Risk Factor for Sedentary Lifestyle - For Smoking Smoking Risk Guidelines: Smoking Low Risk: None or quit greater than 6 months ago. Smoking Moderate Risk: Smoker or quit 6 months or less ago. Smoking High Risk: Smoker - For Dyslipidemia Dyslipidemia Risk Guidelines: Low Risk: Moderate Risk: High Risk: 15-25% fat 25.1-29% fat >/= 30% fat. <7% sat fat 7-9% sat fat >9% sat fat. <150 mg chol 150-299 mg chol >/= 300 mg chol. LDL <100 LDL 100-129 LDL >/= 130. Chol/HDL ratio <5.0 Chol/HDL ratio 5.0-6.0 Chol/HDL ratio >6.0. Triglycerides <100 Triglycerides 100-149 Triglycerides >/= 150 - For Diabetes Mellitus Diabetes Risk Guidelines: Diabetes Low Risk: HgA1c <6.5% and/or FBG <120. Diabetes Moderate Risk: HgA1c 6.6-7.9% and/or FBG 120-180. Diabetes High Risk: HgA1c >/= 8% and/or FBG >180 - For Obesity/Overweight Obesity/Overweight Risk Guidelines: Obesity Low Risk: BMI <25.0. Obesity Moderate Risk: BMI 25-29.9. Obesity High Risk: BMI >/= 30.0 - For Hypertension Hypertension Risk Guidelines: Hypertension Low Risk: Systolic <120 and Diastolic <80. Hypertension Moderate Risk: Systolic 120-139 and Di astolic 80-89. Hypertension High Risk: Systolic >/= 140 and Diastolic >/= 90 - For Sedentary Lifestyle Sedentary Lifestyle Risk Guidelines: Sedentary Lifestyle Low Risk: >/= 1,500 kcal/week. Sedentary Lifestyle Moderate Risk: 700-1,499 kcal/week. Sedentary Lifestyle High Risk: < 700 kcal/week - For Depression Depression Risk Guidelines: Depression Low Risk: Not clinically depressed. Depression Moderate Risk: Mildly depressed. Depression High Risk: Clinically depressed - Family History Family History: Family History (Last Reviewed 11/14/18 @ 13:23 by Yuko Dangelo) Mother CAD (coronary artery disease) Hypertension Brother CAD (coronary artery disease) Hypertension Other Heart disease Motivation - Motivation to Participate On a scale of 1 to 10, how prepared are you to commit to attending program?: 6
--- NOTE | 2018-11-17 10:29 | CR.ITP_ITS ---
General Information - General Information Admitting Diagnosis: PTCA with stent - Education/Goals Barriers to Learning: None Individual Counseling: Initial Assessment: Abnormal Cholesterol Levels, Diabetes, Sedentary Lifestyle, Stress Cardiac Rehabilitation Goals: 1. Maintain the individual as the primary focus of care. 2. To improve the patient's quality of life. 3. Identification of cardiac risk factors and provide cardiac risk factor management. 4. Enhance the psychosocial status of the patient. 5. Reconditioning enough to allow the patient to resume customary activities. 6. Control symptoms of cardiac disease Scale for measuring improvement of personal goals: Enter appropriate number in Comments. 2 = Unchanged. 3 = Slightly Better. 4 = Moderate Improvement. 5 = Met my Goal Personal Goals: Initial Assessment: Improve management of stress and emotions, Improve energy level, Participate in home exercise program, Get back to work, or to resume activities faster, Improve knowledge of cardiac disease, Improve muscle strength and endurance, Control risk factors (learn risk factor modification) Nutrition - Initial Assessment - Program Goals Nutrition Program Goals: LDL <70. Total Cholesterol <200. HDL >45. Triglycerides <150. HgbA1C <7%. 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 Attend education classes. Improve Knowledge Test score - Stage of Change Stages of Change:: Maintenance - Learning Barriers Learning Barriers: Ready to Learn Total Score:: 19 - Family Support Do you have family support?: Yes - Tobacco Use Tobacco Use: Non-smoker How long ago did you quit using tobacco products?: Greater than or equal to 6 months ago - Intervention Smoking Cessation Referral:: No Individual Education/Counseling:: No Education Schedule Given:: Yes - Education Attended class for:: Treating Heart Disease, How The Heart Works, What it means to have Heart Disease, How Coronary Artery Disease is Diagnosed, Heart Procedures, What Heart Medications Do, Risk Factors & Modifications, Living an Active Life, Nutrition, Emotions & Heart Disease, Stress Management & Relaxation, Sleep Disorders & Heart Disease Psychosocial - Initial Assess - Target Goals Target Goals: Assess presence or absence of depression. Using a valid screening tool, maximizes coping skills. Positive support system - Stages of Change Stages of Change:: Action - Psychosocial Test Tool Used:: HANDS Depression Questionnaire Self-reported stress:: yes Tests Completed: SF - 36 survey completed, Mood Scale Test Total Mood Screening Score:: 11 Self-Efficacy Score:: 2 - Intervention PS - Interventions: Yes Attend Stress Management Classes, Yes Uses Stress Management Skills, No Referral to Mental Health, No Referral to [facility] Case Management, No Referral to Physician - Education Gave educational materials for:: Coping techniques, Signs & symptoms of depression, Stress management, Relaxation techniques - Patient/Program Goal Preventative Medication(s):: Aspirin, MARY inhibitor, Clopidogrel, Beta marry, Statin/lipid - Assistive Devices Assistive Devices:: None Fall Risk Assessed:: Yes Patient Health Questionnaire Initial Assessment 1. Little interest or pleasure in doing things: Nearly every day 2. Feeling down, depressed, or hopeless: More than half the days 3. Trouble falling or staying asleep, or sleeping too much: Not at all 4. Feeling tired or having little energy: More than half the days 6. Feeling bad about yourself -- or that you are a failure or have let yourself or your family down: Several days 7. Trouble concentrating on things, such as reading the newspaper or watching television: Not at all 8. Moving or speaking so slowly that other people could have noticed. Or the opposite - being so fidgety or restless that you have been moving around a lot more than usual: Nearly every day 9. Thoughts that you would be better off , or of hurting yourself in some way: Not at all How difficult have these problems made it for you to do your work, take care of things at home, or get along with other people?: Not difficult at all Total Score: 11 TOMER-Q SV Test - Statements CAD is a disease of the arteries in the heart: False Examples of risk factors for heart disease: True Angina is chest pain or discomfort: True The benefits of resistance training include: True Eating more meat and dairy products: True Anti-platelet medications such as aspirin are important: True The only effective way to manage stress: False An exercise warm-up slowly increases heart rate: True Prepared, processed foods usually have high sodium: True Depression is common after a heart attack: True The statin medications lower cholesterol: True To control blood pressure, lower the amount of sodium: True If someone gets chest discomfort during walking: False Transfats are partially hydrogenated vegetable oils: True Sleep apnea that is not treated increases the risk: False To control cholesterol, one should become a vegetarian: False Someone knows if he/she is exercising at the right level: True Diabetes cannot be prevented with exercise & health eating: False Stress is a large risk for heart attack: True A diet that can help lower blood pressure is rich in: True - Total Score Total Correct Responses: 19 Self-Efficacy Initial Assessment We would like to know how confident you are in doing certain activities. Please select your confidence level for:: Select your confidence level for the following using the scale 1-10 where 1 is not at all confident and 10 is totally confident. Your score is the average of all 6 responses. Fatigue: How confident are you that you can keep the fatigue caused by your disease from interfering with the things you want to do? Select Number: 1 Physical Discomfort or Pain: How confident are you that you can keep the physical discomfort or pain of your disease from interfering with the things you want to do? Select Number: 2 Emotional Distress: How confident are you that you can keep the emotional distress caused by your disease from interfering with the things you want to do? Select Number: 2 Other Symptoms or Health Problems: How confident are you that you can keep other symptoms or health problems from interfering with the things you want to do? Select Number: 2 Different Tasks and Activities: How confident are you that you can do the different tasks and activities needed to manage your health condition so as to reduce your need to see a doctor? Select Number: 3 Medication: How confident are you that you can do things other than just taking medication to reduce how much your illness affects your everyday life? Select Number: 3 Total Score:: 2 Nutrition Survey - Nutrition Survey Instructions Scoring Instructions: Scoring is as follows: Yes = 1 points. No = 0 point. Patient score that is >/=12 is considered to be at potential nutritional risk and could benefit from a referral to a registered dietitian. - Nutrition Survey Initial Have you lost >10 lbs over the past 2 months without trying?: No Are you following a special diet at home for diabetes, low fat, or low salt?: No Are you interested in meeting with a dietitian for help understanding your diet?: No Do you eat less than 3 meals a day?: Yes Do you eat fatty meats (harris, sausage, ribs, etc), fried foods, desserts, large amounts of salad dressings, margarine, butter, or cheese most days?: Yes Do you have food allergies? [Enter types in comment field]: No Do you eat in restaurants more than 3 times a week?: No Do you season food with salt, seasoning salt, or garlic salt?: No Do you used canned, boxed, frozen meals, or soups, seasoning packets?: Yes Total Score:: 3
[2018-11-17 11:27] VITALS: BP 110/60; BP 114/50; PULSE 108; O2SAT 96; BMI 23.5
== END | disposition home or self-care (01) ==
LOC: CR 10:20
PROVIDERS: Family Provider Family Medicine; PCP Family Medicine; Referring Provider Internal Medicine Cardiovascular Disease; Visit Provider Internal Medicine Cardiovascular Disease
DX: I25.10 Atherosclerotic heart disease of native coronary artery without angina pectoris (principal); E11.22 Type 2 diabetes mellitus with diabetic chronic kidney disease; N18.2 Chronic kidney disease, stage 2 (mild); G47.33 Obstructive sleep apnea (adult) (pediatric); N40.0 Benign prostatic hyperplasia without lower urinary tract symptoms; K21.9 Gastro-esophageal reflux disease without esophagitis; F41.9 Anxiety disorder, unspecified; J44.9 Chronic obstructive pulmonary disease, unspecified; Z95.5 Presence of coronary angioplasty implant and graft; Z85.118 Personal history of other malignant neoplasm of bronchus and lung; Z79.82 Long term (current) use of aspirin; Z79.899 Other long term (current) drug therapy; Z87.891 Personal history of nicotine dependence

== ENCOUNTER 2018-12-02 11:30 | Outpatient (RCR) | payer MEDICARE, BC, SELFPAY ==
[2018-11-07 13:51] VITALS: BMI 23.5
[2018-11-17 11:27] VITALS: BMI 23.5
== END 2018-12-03 23:59 ==
LOC: CR 11:30
PROVIDERS: Family Provider Family Medicine; PCP Family Medicine; Referring Provider Internal Medicine Cardiovascular Disease; Visit Provider Internal Medicine Cardiovascular Disease
DX: Z95.5 Presence of coronary angioplasty implant and graft (principal); I25.10 Atherosclerotic heart disease of native coronary artery without angina pectoris
CPT/HCPCS: 93798

== ENCOUNTER → 2018-12-22 07:58 | Outpatient (CLI) | payer MEDICARE, BC, SELFPAY ==
[2018-11-07 13:51] VITALS: BMI 23.5
[2018-11-17 11:27] VITALS: BMI 23.5
[2018-12-22 08:45] LABS: Anion Gap 3 (5-15); BUN 18 mg/dL (7-18); BUN/Creat Ratio 17.3 RATIO (10-20); Calcium,Total 8.8 mg/dL (8.5-10.1); Chloride 109 mmol/L (98-107); Creatinine, Serum 1.04 mg/dL (0.70-1.30); EST Glomerular Filtration Rate 73 mL/min (>60); Est Glom Filt Rate - Afr Amer 88 mL/min (>60); Glucose 124 mg/dL (74-106); Potassium 4.4 mmol/L (3.5-5.1); Sodium Level 139 mmol/L (136-145)
[2018-12-22 09:10] LABS: Digoxin Level 1.31 ng/mL (0.80-2.00)
== END ==
PROVIDERS: Family Provider Family Medicine; PCP Family Medicine; Referring Provider Internal Medicine Cardiovascular Disease; Visit Provider Internal Medicine Cardiovascular Disease
DX: I25.10 Atherosclerotic heart disease of native coronary artery without angina pectoris (principal); Z79.899 Other long term (current) drug therapy; Z95.5 Presence of coronary angioplasty implant and graft
CPT/HCPCS: 36415; 80048; 80162

== ENCOUNTER 2019-01-02 11:30 | Outpatient (RCR) | payer MEDICARE, BC, SELFPAY ==
[2018-11-07 13:51] VITALS: BMI 23.5
[2018-11-17 11:27] VITALS: BMI 23.5
--- NOTE | 2018-12-16 08:18 | CR.ITP_ITS ---
General Information - General Information Admitting Diagnosis: PCI with stent - Education/Goals Cardiac Rehabilitation Goals: 1. Maintain the individual as the primary focus of care. 2. To improve the patient's quality of life. 3. Identification of cardiac risk factors and provide cardiac risk factor management. 4. Enhance the psychosocial status of the patient. 5. Reconditioning enough to allow the patient to resume customary activities. 6. Control symptoms of cardiac disease Scale for measuring improvement of personal goals: Enter appropriate number in Comments. 2 = Unchanged. 3 = Slightly Better. 4 = Moderate Improvement. 5 = Met my Goal Exercise - 30-day Assessment - Visit Date of Eval: 12/16/18 Session #:: 9 - Stages of Change Stages of Change:: Action - Physician Prescribed Exercise Modalities: Treadmill, Airdyne, NuStep Frequency (days/week): 3 Duration (Minutes):: 30-45 Intensity: 60-80% age predicted maximum heart rate reserve METs - Progression: 0.5-1.0 MET, RPE 11-14 WEEK: 2.5 Target Heart Rate:: 105/120 Max HR 129 - Hypertension Resting Blood Pressure:: 108/52 Peak Exercise Blood Pressure:: 110/80 - Intervention Home Exercise/Activity Goal:: Sitting Time <3 hrs/day - Education Goals:: Warm-up, RPE VESTA Scale, S/S, Safe Exercise, Self-Monitoring - Exercise Program Goals Exercise Program Goals: Aerobic Activity >30 min, B/P <130/80 Nutrition - Initial Assessment - Program Goals Nutrition Program Goals: LDL <70. Total Cholesterol <200. HDL >45. Triglycerides <150. HgbA1C <7%. BMI <25 - Diabetes Do you monitor your blood sugar at home?: Yes Nutrition - 30-Day Assessment - Program Goals Nutrition Program Goals: LDL <70. Total Cholesterol <200. HDL >45. Triglycerides <150. HgbA1C <7%. BMI <25 - Visit Date of Eval: 12/16/18 - Stages of Change Stages of Change:: Action - Diabetes Diabetes:: Yes Insulin: Yes Non-Insulin Dependent?: Yes Random Blood Glucose:: 188 - Weight Management Weight:: 72.348 kg - Intervention Referral to dietitian:: No Referral to Diabetic Clinic:: No Will attend diet classes:: Yes - Education Attended class for:: Signs & symptoms of hypoglycemia, Signs & symptoms of hyperglycemia, Relate diabetes to coronary artery disease, Healthy eating Tobacco - Initial Assessment - Program Goals Tobacco Program Goals: Complete smoking cessation. Attend education classes. Improve Knowledge Test score - Learning Barriers Learning Barriers: Ready to Learn Tobacco - 30-Day Assessment - Program Goals Tobacco Program Goals: Complete smoking cessation. Attend education classes. Improve Knowledge Test score - Stage of Change Stages of Change:: Action - Learning Barriers Learning Barriers: Participates in education - Family Support Do you have family support?: Yes - Tobacco Use Tobacco Use: Non-smoker Do you use smokeless tobacco?: No - Intervention Smoking Cessation Referral:: No Individual Education/Counseling:: No Education Schedule Given:: Yes - Education Attended class for:: Treating Heart Disease, How The Heart Works, What it means to have Heart Disease, How Coronary Artery Disease is Diagnosed, Heart Procedures, What Heart Medications Do, Risk Factors & Modifications, Living an Active Life, Nutrition, Emotions & Heart Disease, Stress Management & Relaxation, Sleep Disorders & Heart Disease Psychosocial - Initial Assess - Target Goals Target Goals: Assess presence or absence of depression. Using a valid screening tool, maximizes coping skills. Positive support system - Psychosocial Test Tool Used:: HANDS Depression Questionnaire - Assistive Devices Fall Risk Assessed:: Yes Psychosocial - 30-Day Assess - Target Goals Target Goals: Assess presence or absence of depression. Using a valid screening tool, maximizes coping skills. Positive support system - Stages of Change Stages of Change:: Action - Psychosocial Test Tool Used:: HANDS Depression Questionnaire - Intervention PS - Interventions: Yes Attend Stress Management Classes, Yes Uses Stress Management Skills, No Referral to Mental Health, No Referral to [facility] Case Management, No Referral to Physician - Education Attended classes for:: Coping techniques, Signs & symptoms of depression, Stress management, Relaxation techniques - Assistive Devices Assistive Devices:: None Fall Risk Assessed:: Yes Patient Health Questionnaire 30-Day Re-eval Assessment 1. Little interest or pleasure in doing things: Nearly every day 2. Feeling down, depressed, or hopeless: More than half the days 3. Trouble falling or staying asleep, or sleeping too much: Not at all 4. Feeling tired or having little energy: More than half the days 5. Poor appetite or overeating: Several days 6. Feeling bad about yourself -- or that you are a failure or have let yourself or your family down: Not at all 7. Trouble concentrating on things, such as reading the newspaper or watching television: Nearly every day 8. Moving or speaking so slowly that other people could have noticed. Or the opposite - being so fidgety or restless that you have been moving around a lot more than usual: Nearly every day 9. Thoughts that you would be better off , or of hurting yourself in some way: Not at all How difficult have these problems made it for you to do your work, take care of things at home, or get along with other people?: Not difficult at all Total Score: 14 Self-Efficacy 30-Day Re-eval Assessment We would like to know how confident you are in doing certain activities. Please select your confidence level for:: Select your confidence level for the following using the scale 1-10 where 1 is not at all confident and 10 is totally confident. Your score is the average of all 6 responses. Fatigue: How confident are you that you can keep the fatigue caused by your disease from interfering with the things you want to do? Select Number: 1 Physical Discomfort or Pain: How confident are you that you can keep the physical discomfort or pain of your disease from interfering with the things you want to do? Select Number: 2 Emotional Distress: How confident are you that you can keep the emotional distress caused by your disease from interfering with the things you want to do? Select Number: 2 Other Symptoms or Health Problems: How confident are you that you can keep other symptoms or health problems from interfering with the things you want to do? Select Number: 2 Different Tasks and Activities: How confident are you that you can do the different tasks and activities needed to manage your health condition so as to reduce your need to see a doctor? Select Number: 3 Medication: How confident are you that you can do things other than just taking medication to reduce how much your illness affects your everyday life? Select Number: 3 Total Score:: 2
[2018-12-16 08:26] VITALS: BP 108/52; BP 110/80
== END 2019-01-02 23:59 ==
LOC: CR 11:30
PROVIDERS: Family Provider Family Medicine; PCP Family Medicine; Referring Provider Internal Medicine Cardiovascular Disease; Visit Provider Internal Medicine Cardiovascular Disease
DX: I25.10 Atherosclerotic heart disease of native coronary artery without angina pectoris (principal); Z95.5 Presence of coronary angioplasty implant and graft
CPT/HCPCS: 93798

== ENCOUNTER 2019-02-01 11:30 | Outpatient (RCR) | payer MEDICARE, BC, SELFPAY ==
[2018-11-07 13:51] VITALS: BMI 23.5
[2018-11-17 11:27] VITALS: BMI 23.5
[2019-01-03 01:03] VITALS: BP 108/52; BP 110/80
--- NOTE | 2019-01-11 12:55 | CR.ITP_ITS ---
Exercise - 60-Day Assessment - Visit Date of Eval: 01/11/19 Session #:: 20 - started his CR on 11/23/2018 - Stages of Change Stages of Change:: Action - Physician Prescribed Exercise Modalities: Treadmill, Airdyne, NuStep Frequency (days/week): 3 Duration (Minutes):: 30-45 Intensity: 60-80% age predicted maximum heart rate reserve METs - Progression: 0.5-1.0 MET, RPE 11-14 WEEK: 2.5 limited by heart rates Target Heart Rate:: 105-120 w max HR 120 - Hypertension Resting Blood Pressure:: 126/54 Peak Exercise Blood Pressure:: 134/62 Medication Changes:: Yes - started on digoxin 250mcg. - Intervention Home Exercise/Activity Goal:: Moderate Exercise 30 min/day x 5 days/wk - Education Goals:: Warm-up, RPE VESTA Scale, S/S, Safe Exercise, Self-Monitoring - Exercise Program Goals Exercise Program Goals: Aerobic Activity >30 min Nutrition - Initial Assessment - Program Goals Nutrition Program Goals: LDL <70. Total Cholesterol <200. HDL >45. Triglycerides <150. HgbA1C <7%. BMI <25 - Diabetes Do you monitor your blood sugar at home?: Yes Nutrition - 60-Day Assessment - Program Goals Nutrition Program Goals: LDL <70. Total Cholesterol <200. HDL >45. Triglycerides <150. HgbA1C <7%. BMI <25 - Visit Date of Eval: 01/11/19 - Stages of Change Stages of Change:: Action - Lipids Has the patient seen the dietitian?: No - Diabetes Diabetes:: No Insulin: No Non-Insulin Dependent?: No - Weight Management Weight:: 158 lb - varies +/- 2 pounds - Intervention Referral to dietitian:: No Referral to Diabetic Clinic:: No Will attend diet classes:: Yes - Education Attended class for:: Healthy eating Tobacco - Initial Assessment - Program Goals Tobacco Program Goals: Complete smoking cessation. Attend education classes. Improve Knowledge Test score - Learning Barriers Learning Barriers: Ready to Learn Tobacco - 60-Day Assessment - Program Goals Tobacco Program Goals: Complete smoking cessation. Attend education classes. Improve Knowledge Test score - Stage of Change Stages of Change:: Action - Learning Barriers Learning Barriers: Participates in education - Family Support Do you have family support?: Yes - Tobacco Use Tobacco Use: Non-smoker Do you use smokeless tobacco?: No - Intervention Smoking Cessation Referral:: No Individual Education/Counseling:: No Education Schedule Given:: Yes - Education Attended class for:: Treating Heart Disease, How The Heart Works, What it means to have Heart Disease, How Coronary Artery Disease is Diagnosed, Heart Procedures, What Heart Medications Do, Risk Factors & Modifications, Living an Active Life Psychosocial - Initial Assess - Target Goals Target Goals: Assess presence or absence of depression. Using a valid screening tool, maximizes coping skills. Positive support system - Psychosocial Test Tool Used:: HANDS Depression Questionnaire - Assistive Devices Fall Risk Assessed:: Yes Psychosocial - 60-Day Assess - Target Goals Target Goals: Assess presence or absence of depression. Using a valid screening tool, maximizes coping skills. Positive support system - Stages of Change Stages of Change:: Action - Psychosocial Test Tool Used:: HANDS Depression Questionnaire - Intervention PS - Interventions: Yes Attend Stress Management Classes, Yes Uses Stress Management Skills, No Referral to Mental Health, No Referral to [facility] Case Management, No Referral to Physician - Education Attended classes for:: Coping techniques, Signs & symptoms of depression, Stress management, Relaxation techniques - Patient/Program Goal Preventative Medication(s):: Aspirin, MARY inhibitor, Clopidogrel, Beta marry, Statin/lipid - Assistive Devices Assistive Devices:: None Patient Health Questionnaire 60-Day Re-eval Assessment 3. Trouble falling or staying asleep, or sleeping too much: Nearly every day 4. Feeling tired or having little energy: More than half the days 5. Poor appetite or overeating: Not at all 6. Feeling bad about yourself -- or that you are a failure or have let yourself or your family down: Not at all 7. Trouble concentrating on things, such as reading the newspaper or watching television: More than half the days 8. Moving or speaking so slowly that other people could have noticed. Or the opposite - being so fidgety or restless that you have been moving around a lot more than usual: Several days 9. Thoughts that you would be better off , or of hurting yourself in some way: Not at all How difficult have these problems made it for you to do your work, take care of things at home, or get along with other people?: Not difficult at all Total Score: 8 Self-Efficacy 60-Day Re-eval Assessment We would like to know how confident you are in doing certain activities. Please select your confidence level for:: Select your confidence level for the following using the scale 1-10 where 1 is not at all confident and 10 is totally confident. Your score is the average of all 6 responses. Fatigue: How confident are you that you can keep the fatigue caused by your disease from interfering with the things you want to do? Select Number: 3 Physical Discomfort or Pain: How confident are you that you can keep the physical discomfort or pain of your disease from interfering with the things you want to do? Select Number: 4 Emotional Distress: How confident are you that you can keep the emotional distress caused by your disease from interfering with the things you want to do? Select Number: 3 Other Symptoms or Health Problems: How confident are you that you can keep other symptoms or health problems from interfering with the things you want to do? Select Number: 3 Different Tasks and Activities: How confident are you that you can do the different tasks and activities needed to manage your health condition so as to reduce your need to see a doctor? Select Number: 4 Medication: How confident are you that you can do things other than just taking medication to reduce how much your illness affects your everyday life? Select Number: 5 Total Score:: 3
[2019-01-11 13:00] VITALS: BP 126/54; BP 134/62
== END 2019-02-02 23:59 ==
LOC: CR 11:30
PROVIDERS: Family Provider Family Medicine; PCP Family Medicine; Referring Provider Internal Medicine Cardiovascular Disease; Visit Provider Internal Medicine Cardiovascular Disease
DX: I25.10 Atherosclerotic heart disease of native coronary artery without angina pectoris (principal); Z95.5 Presence of coronary angioplasty implant and graft
CPT/HCPCS: 93798

== ENCOUNTER → 2019-02-03 09:54 | Outpatient (CLI) | payer MEDICARE, BC, SELFPAY ==
[2018-11-07 13:51] VITALS: BMI 23.5
[2018-11-17 11:27] VITALS: BMI 23.5
[2019-02-03 10:57] LABS: Anion Gap 10 (5-15); BUN 15 mg/dL (7-18); BUN/Creat Ratio 13.8 RATIO (10-20); Calcium,Total 8.8 mg/dL (8.5-10.1); Chloride 105 mmol/L (98-107); Creatinine, Serum 1.09 mg/dL (0.70-1.30); EST Glomerular Filtration Rate 69 mL/min (>60); Est Glom Filt Rate - Afr Amer 84 mL/min (>60); Glucose 141 mg/dL (74-106); Potassium 4.2 mmol/L (3.5-5.1); Sodium Level 140 mmol/L (136-145)
[2019-02-03 11:17] LABS: Digoxin Level 1.41 ng/mL (0.80-2.00)
== END ==
PROVIDERS: Family Provider Family Medicine; PCP Family Medicine; Referring Provider Internal Medicine Cardiovascular Disease; Visit Provider Internal Medicine Cardiovascular Disease
DX: I25.10 Atherosclerotic heart disease of native coronary artery without angina pectoris (principal); Z95.5 Presence of coronary angioplasty implant and graft; Z79.899 Other long term (current) drug therapy
CPT/HCPCS: 36415; 80048; 80162; 93798

== ENCOUNTER 2019-02-20 11:30 | Outpatient (RCR) | payer MEDICARE, BC, SELFPAY ==
[2018-11-07 13:51] VITALS: BMI 23.5
[2018-11-17 11:27] VITALS: BMI 23.5
[2019-02-03 01:01] VITALS: BP 126/54; BP 134/62
--- NOTE | 2019-02-17 08:25 | CR.ITP_ITS ---
Exercise - Final/Discharge - Visit Date of Eval: 02/17/19 Session #:: 35 - patient has missed 3 sessions - Stages of Change Stages of Change:: Action - Physician Prescribed Exercise Modalities: Treadmill, Airdyne, NuStep Frequency (days/week): 3 Duration (Minutes):: 30-45 Intensity: 60-80% age predicted maximum heart rate reserve METs - Progression: 0.5-1.0 MET, RPE 11-14 WEEK: 2.5 maintained due to other medical related issues. Target Heart Rate:: 105-120 w/max HR 115 - Hypertension Do any of the following apply?: Yes Resting Blood Pressure:: 94/50 Peak Exercise Blood Pressure:: 140/64 - Intervention Home Exercise/Activity Goal:: Sitting Time <3 hrs/day - Education Goal Progress: Goal Met - Exercise Program Goals Exercise Program Goals: Aerobic Activity >30 min Nutrition - Initial Assessment - Program Goals Nutrition Program Goals: LDL <70. Total Cholesterol <200. HDL >45. Triglycerides <150. HgbA1C <7%. BMI <25 - Diabetes Do you monitor your blood sugar at home?: Yes Nutrition - Final Assessment - Program Goals Nutrition Program Goals: LDL <70. Total Cholesterol <200. HDL >45. Triglycerides <150. HgbA1C <7%. BMI <25 - Visit Date of Eval: 02/17/19 - Stages of Change Stages of Change:: Action - Diabetes Diabetes:: No Insulin: No Non-Insulin Dependent?: No - Weight Management Height: 5 ft 7 in Weight:: 159 lb 8 oz - unchanged Body Fat %:: 23 - Intervention Referral to dietitian:: No Referral to Diabetic Clinic:: No Will attend diet classes:: Yes - Education Education Goal Reached?: Yes Tobacco - Initial Assessment - Program Goals Tobacco Program Goals: Complete smoking cessation. Attend education classes. Improve Knowledge Test score - Learning Barriers Learning Barriers: Ready to Learn Tobacco - Final Assessment - Program Goals Tobacco Program Goals: Complete smoking cessation. Attend education classes. Improve Knowledge Test score - Stage of Change Stages of Change:: Action - Family Support Do you have family support?: Yes - Tobacco Use Tobacco Use: Non-smoker Do you use smokeless tobacco?: No - Intervention Smoking Cessation Referral:: No Individual Education/Counseling:: No Education Schedule Given:: Yes - Education Education Goal Reached?: Yes Psychosocial - Initial Assess - Target Goals Target Goals: Assess presence or absence of depression. Using a valid screening tool, maximizes coping skills. Positive support system - Psychosocial Test Tool Used:: HANDS Depression Questionnaire - Assistive Devices Fall Risk Assessed:: Yes Psychosocial - Final Assessmen - Target Goals Target Goals: Assess presence or absence of depression. Using a valid screening tool, maximizes coping skills. Positive support system - Stages of Change Stages of Change:: Action - Psychosocial Test Tool Used:: HANDS Depression Questionnaire - Intervention PS - Interventions: Yes Attend Stress Management Classes, Yes Uses Stress Management Skills, No Referral to Mental Health, No Referral to [facility] Case Management, No Referral to Physician - Education Education Goal Reached?: Yes - Patient/Program Goal Preventative Medication(s):: Aspirin - patient is compliant with his medications and medical treatment, MARY inhibitor, Clopidogrel, Beta marry, Statin/lipid - Assistive Devices Assistive Devices:: None Fall Risk Assessed:: Yes Patient Health Questionnaire Discharge Assessment 1. Little interest or pleasure in doing things: Nearly every day 2. Feeling down, depressed, or hopeless: More than half the days 3. Trouble falling or staying asleep, or sleeping too much: Not at all 4. Feeling tired or having little energy: More than half the days 5. Poor appetite or overeating: Several days 6. Feeling bad about yourself -- or that you are a failure or have let yourself or your family down: Not at all 7. Trouble concentrating on things, such as reading the newspaper or watching te levision: Nearly every day 8. Moving or speaking so slowly that other people could have noticed. Or the opposite - being so fidgety or restless that you have been moving around a lot more than usual: Several days 9. Thoughts that you would be better off , or of hurting yourself in some way: Not at all How difficult have these problems made it for you to do your work, take care of things at home, or get along with other people?: Not difficult at all Total Score: 12 TOMER-Q SV Test - Statements CAD is a disease of the arteries in the heart: False Examples of risk factors for heart disease: True Angina is chest pain or discomfort: True The benefits of resistance training include: True Eating more meat and dairy products: False Anti-platelet medications such as aspirin are important: True The only effective way to manage stress: False An exercise warm-up slowly increases heart rate: True Prepared, processed foods usually have high sodium: True Depression is common after a heart attack: True The statin medications lower cholesterol: True To control blood pressure, lower the amount of sodium: True If someone gets chest discomfort during walking: False Transfats are partially hydrogenated vegetable oils: True Sleep apnea that is not treated increases the risk: False To control cholesterol, one should become a vegetarian: False Someone knows if he/she is exercising at the right level: True Diabetes cannot be prevented with exercise & health eating: False Stress is a large risk for heart attack: True A diet that can help lower blood pressure is rich in: True - Total Score Total Correct Responses: 20 Self-Efficacy Discharge Assessment We would like to know how confident you are in doing certain activities. Please select your confidence level for:: Select your confidence level for the following using the scale 1-10 where 1 is not at all confident and 10 is totally confident. Your score is the average of all 6 responses. Fatigue: How confident are you that you can keep the fatigue caused by your dis ease from interfering with the things you want to do? Select Number: 3 Physical Discomfort or Pain: How confident are you that you can keep the physic al discomfort or pain of your disease from interfering with the things you want to do? Select Number: 4 Emotional Distress: How confident are you that you can keep the emotional distress caused by your disease from interfering with the things you want to do? Select Number: 3 Other Symptoms or Health Problems: How confident are you that you can keep other symptoms or health problems from interfering with the things you want to do? Select Number: 3 Different Tasks and Activities: How confident are you that you can do the different tasks and activities needed to manage your health condition so as to reduce your need to see a doctor? Select Number: 5 Medication: How confident are you that you can do things other than just taking medication to reduce how much your illness affects your everyday life? Select Number: 4 Total Score:: 3
[2019-02-17 08:31] VITALS: BP 140/64; BP 94/50
== END 2019-03-04 23:59 ==
LOC: CR 11:30
PROVIDERS: Family Provider Family Medicine; PCP Family Medicine; Referring Provider Internal Medicine Cardiovascular Disease; Visit Provider Internal Medicine Cardiovascular Disease
DX: I25.10 Atherosclerotic heart disease of native coronary artery without angina pectoris (principal); Z95.5 Presence of coronary angioplasty implant and graft
CPT/HCPCS: 93798

== ENCOUNTER 2019-03-13 20:42 | Inpatient (IN) | payer MEDICARE, BC, SELFPAY ==
[2018-11-07 13:51] VITALS: BMI 23.5
[2019-02-14 10:54] VITALS: BMI 24.9
[2019-03-13] VITALS (7 sets, daily range): BP systolic 136–158; BP diastolic 70–80; PULSE 100–119; RESP 12–26; TEMP 36.5–36.7; O2SAT 92–99; BMI 25.3; BMI 25.4
--- NOTE | 2019-03-13 20:51 | EKG12_ITS ---
Test Reason : SOB Blood Pressure : / mmHG Vent. Rate : 114 BPM Atrial Rate : 114 BPM P-R Int : 132 ms QRS Dur : 086 ms QT Int : 308 ms P-R-T Axes : 090 084 070 degrees QTc Int : 424 ms Sinus tachycardia Otherwise normal ECG Confirmed by CORAZON STOUT, LIANG ([id number]), website/blog editor LAURA WONG ([id number]) on 03/15/2019 11:45:30 AM Referred By: Ko Macias Confirmed By:LIANG CHANDRA MD
--- NOTE | 2019-03-13 20:54 | RAD_ITS ---
STUDY: X-RAY CHEST REASON FOR EXAM: Male, 78 years old. Dyspnea TECHNIQUE: AP portable COMPARISON: October 10, 2018 FINDINGS: Lungs are hyperinflated but clear.. There is no demonstrated pleural abnormality. Normal size heart. Normal mediastinum and cinthya. Normal visualized pulmonary arteries. Mildly calcified aortic arch and descending thoracic aorta. Normal visualized thoracic spine. Normal visualized clavicles, and shoulders. Multiple old healed left rib fractures There is no demonstrated abnormality of the visualized soft tissue structures of the upper abdomen. No significant changes since prior exam RAD/Chest 1 View (Portable) IMPRESSION: COPD. No acute disease. Electronically Signed: Jose Francisco Benito MD at 21:19 EST , Service support ,
[2019-03-13] MEDS: Albuterol 2.5 MG/3 ML VIAL.NEB. INHALATION ×3 (21:02→21:06)
[2019-03-13] MEDS: Ipratropium/Albuterol Sulfate 3 ML AMPUL.NEB INHALATION (21:02)
[2019-03-13 21:10] LABS: Absolute Lymphocyte Count 0.95 X10^3/uL (0.83-4.51); Basophil# 0.02 X10^3/uL; Basophil% 0.4 % (0-1); Eosinophil# 0.02 X10^3/uL; Eosinophils% 0.4 % (0-5); Hematocrit 37.3 % (40-54); Hemoglobin 12.6 g/dL (13.0-16.5); Lymphocyte # 0.95 X10^3/ul (4.0); Lymphocyte % 19.5 % (19-41); Mean Corp Hgb Conc 33.8 g/dL (32-36); Mean Corpuscular Hgb 29.3 pg (27.0-32.0); Mean Corpuscular Volume 86.7 fL (80-94); Mean Platelet Vol. 10.1 fl (6.2-12.0); Monocyte# 0.84 X10^3/uL; Monocyte% 17.2 % (0-10); NRBC Flagged by Analyzer 0 % (0-5); Neutrophil # 3.02 X10^3/uL (2.7-7.7); Neutrophil % 62.1 % (47-70); Platelet Count 252 K/mm3 (150-450); RBC Distribution Width CV 13.2 % (11.6-14.6); RBC Distribution Width SD 41.6 fl (35.1-43.9); White Blood Count 4.9 K/mm3 (4.4-11.0)
[2019-03-13] MEDS: 0.9% Normal Saline 1,000 ML 150 ML IV (21:15)
[2019-03-13] MEDS: MethylPREDNISolone 125 MG/2 ML Vial IV (21:15)
[2019-03-13 21:23] LABS: Anion Gap 6 (5-15); BUN 27 mg/dL (7-18); BUN/Creat Ratio 18.4 RATIO (10-20); Calcium,Total 8.8 mg/dL (8.5-10.1); Chloride 111 mmol/L (98-107); Creatinine, Serum 1.47 mg/dL (0.70-1.30); EST Glomerular Filtration Rate 49 mL/min (>60); Est Glom Filt Rate - Afr Amer 59 mL/min (>60); Estimated Creatinine Clearance 37.47 ml/min; Glucose 115 mg/dL (74-106); Potassium 4.5 mmol/L (3.5-5.1); Sodium Level 142 mmol/L (136-145)
[2019-03-13 21:41] LABS: Allen Test POS; Base Excess -1 mmol/L (-2 to +2); Bicarbonate 23.6 mmol/L (22-26); Blood Gas Specimen Type ART; EPAP 6; FI02 30; IPAP 12; PO2 121 mmHG (75-100); RR 12; SITE L Radial; SO2 99 % (95-99); Time Given 2125; Total Carbon Dioxide 25 mmol/L; pCO2 35.5 mmHg (35-45); pH 7.43 (7.35-7.45)
--- NOTE | 2019-03-13 21:42 | ED.VISSUMM ---
- ER Visit Summary Date of Service: 03/13/19 Chief Complaint: [Shortness of breath] History of Present Illness: The patient is a 78 M [presents to the emergency department shortness of breath that became severe tonight. Patient states that he is been short of breath for 50 years. Patient has history of COPD and history of coronary artery disease. Patient has a cardiac stent. She was seen at urgent care 5 days ago and started on prednisone. Patient also saw his unclaimed property manager today Dr. Hernandes. Patient denies any chest pain. He denies any fevers. He does have a cough that at times is productive.] Physical Examination: [HEENT-PERRLA, EOMI. Cranial nerves II through XII grossly intact. TMs clear. Mucous membranes moist. No adenopathy. Cardiovascular-regular rate and rhythm without murmur or ectopy Lungs-decreased breath sounds bilaterally. Patient has expiratory wheezes bilaterally. Patient has some grunting. He is tachypneic. He has conversational dyspnea. Patient is in respiratory failure. Abdomen-normoactive bowel sounds, soft, nontender, no rebound or rigidity, no peritoneal signs. Extremities-intact ?4, normal range of motion, normal pulses, atraumatic] Test Results: [EKG obtained arrival shows sinus rhythm with a ventricular rate of 114 bpm with no acute ST segment changes. CBC with differential showing a 4.9, hemoglobin 12.3, hematocrit 37. Chemistries unremarkable. BUN was 27 and creatinine 1.47. Troponin was less than 0.015. ABG obtained after half an hour on BiPAP showed a pH of 7.43, CO2 of 35, PaO2 of 121, bicarb of 23 and an O2 sat of 99%. This was on an FiO2 of 30%.] Fluency screen pending. Emergency Department Course and Treatment: [She was started on BiPAP and placed on diagnostic cardiac sonographer. He had an IV line established. He was medicated with DuoNeb aerosols and albuterol aerosols. Patient started on Solu-Medrol 125 mg IV.] Treatment Plan: [Admit] Disposition: [Admit] Impression: [COPD exacerbation] This note was generated with Dash[employer] dictation software. It may contain incorrect words, spelling, and punctuation that were not noted in review of the chart prior to signing ED Disposition - Plan for ED Patient: Referrals: Dutch Lee III, MD [Primary Care Provider] -
--- NOTE | 2019-03-13 22:06 | HP.PCM_ITS ---
Problem List (1) S/P coronary artery stent placement Status: Chronic Comment: PTCA/stent to mid RCA @ [facility] 10/18/01; PTCA/TAMI of the prox Diag #1, PTCA/TAMI of the prox LAD, PTCA/TAMI of the mid LCX 10/12/18; PTCA/TAMI to mid RCA and PTCA/TAMI to prox/ostial RCA 11/07/18 (2) Chronic renal failure, stage 2 (mild) Status: Chronic (3) CARLIN (obstructive sleep apnea) Status: Chronic (4) GERD (gastroesophageal reflux disease) Status: Chronic (5) Anxiety disorder Status: Chronic Comment: with panic attacks (6) COPD (chronic obstructive pulmonary disease) Status: Acute Qualifiers: (7) History of coronary angioplasty Status: Chronic (8) Type II diabetes mellitus Status: Chronic History of Present Illness Date of Admission: 03/13/19 Chief Complaint: shortness of breath The patient is a 78 year old patient with a past medical history of coronary artery disease, COPD, diabetes presents to the emergency room with acute shortness of breath. Patient saw his home hospice aide this morning was in a normal state however he had been to an urgent care the previous week and was given a steroid dose and an antibiotic for outpatient treatment. Spite these visits the patient became suddenly short of breath and felt as though he had had mucous plugging his airway and he became acutely anxious along with her shortness of breath. Patient eyes any chest pain, nausea, vomiting and/or fevers or chills. CT chest and x-ray are negative for acute findings. He was placed on BiPAP therapy in the emergency room responded well with a normal blood gas he will be admitted to progressive care unit for further management of his COPD exacerbation as it continues to be very tight. Past Medical History Past Medical History (Chronic Problems): Chronic Problems (Last Reviewed 11/14/18 @ 13:23 by Yuko Dangelo) S/P coronary artery stent placement (Chronic ~11/07/18) PTCA/stent to mid RCA @ [facility] 10/18/01; PTCA/TAMI of the prox Diag #1, PTCA/TAMI of the prox LAD, PTCA/TAMI of the mid LCX 10/12/18; PTCA/TAMI to mid RCA and PTCA/TAMI to prox/ostial RCA 11/07/18 Atherosclerotic heart disease of [place] coronary artery without angina pectoris (Chronic) Chronic renal failure, stage 2 (mild) (Chronic) CARLIN (obstructive sleep apnea) (Chronic) GERD (gastroesophageal reflux disease) (Chronic) Anxiety disorder (Chronic) with panic attacks History of coronary angioplasty (Chronic) Type II diabetes mellitus (Chronic) Medical History: Medical History (Last Reviewed 11/14/18 @ 13:23 by Yuko Dangelo) S/P coronary artery stent placement (Chronic) Onset Date: ~11/07/18 Z95.5 PTCA/stent to mid RCA @ [facility] 10/18/01; PTCA/TAMI of the prox Diag #1, PTCA/TAMI of the prox LAD, PTCA/TAMI of the mid LCX 10/12/18; PTCA/TAMI to mid RCA and PTCA/TAMI to prox/ostial RCA 11/07/18 Atherosclerotic heart disease of [place] coronary artery without angina pectoris (Chronic) I25.10 Chest pain (Acute) R07.9 Chronic renal failure, stage 2 (mild) (Chronic) N18.2 CARLIN (obstructive sleep apnea) (Chronic) G47.33 GERD (gastroesophageal reflux disease) (Chronic) K21.9 Abnormal stress test (Acute) R94.39 Anxiety disorder (Chronic) F41.9 with panic attacks COPD (chronic obstructive pulmonary disease) (Chronic) J44.9 Type II diabetes mellitus (Chronic) E11.9 BPH (benign prostatic hyperplasia) N40.0 Former smoker Z87.891 quit in the early History of malignant neoplasm of lung Z85.118 in 2010? Allergies gabapentin Allergy (Unknown, Verified 03/13/19 20:51) Unknown acetylcysteine [From Mucomyst] Allergy (Verified 03/13/19 20:51) Shortness of breath alprazolam [From Xanax] Allergy (Verified 03/13/19 20:51) breathing issues belladonna alkaloids Allergy (Verified 03/13/19 20:51) Unknown cephalexin Allergy (Verified 03/13/19 20:51) Unknown ciprofloxacin [From Cipro] Allergy (Verified 03/13/19 20:51) Unknown dicyclomine Allergy (Verified 03/13/19 20:51) Unknown diltiazem Allergy (Verified 03/13/19 20:51) Unknown doxycycline Allergy (Verified 03/13/19 20:51) Shortness of breath ezetimibe Allergy (Verified 03/13/19 20:51) Unknown fluvastatin Allergy (Verified 03/13/19 20:51) Unknown metoprolol [From Toprol XL] Allergy (Verified 03/13/19 20:51) Unknown nitrofurantoin Allergy (Verified 03/13/19 20:51) Unknown phenobarbital Allergy (Verified 03/13/19 20:51) Unknown prochlorperazine [From Compazine] Allergy (Verified 03/13/19 20:51) Unknown simvastatin [From Zocor] Allergy (Verified 03/13/19 20:51) Unknown Esjormx-Lig-Qev Reductase Inhibitor Allergy (Verified 03/13/19 20:51) Unknown sulfamethoxazole [From Bactrim] Allergy (Verified 03/13/19 20:51) Unknown tamsulosin [From Flomax] Allergy (Verified 03/13/19 20:51) Unknown trimethoprim [From Bactrim] Allergy (Verified 03/13/19 20:51) Unknown carvedilol Adverse Reaction (Verified 03/13/19 20:51) Vomiting Home Medications: Ambulatory Orders Medication Instructions Recorded Aspirin [Aspirin, Baby] 81 mg PO DAILY@0800 11/13/15 Budesonide/Formoterol 160/4.5 2 puff INHALATION BID 11/13/15 [Symbicort 160/4.5 Mcg Inhaler (SP)] Doxazosin Mesylate [Cardura] 4 mg PO QHS 11/13/15 Finasteride [Proscar] 5 mg PO DAILY 11/13/15 Mirtazapine [Remeron] 30 mg PO QHS 11/13/15 Omeprazole [Prilosec] 20 mg PO DAILY 11/13/15 Theophylline [Kevin-Dur] 300 mg PO BID 11/13/15 prednisoLONE eye drops (1 mL) 1 drp RIGHT EYE 4X/DAY PRN PRN 11/13/15 [Pred Forte eye drops (1 mL)] Guaifenesin [Mucinex] 1,200 mg PO BID PRN 07/29/17 Albuterol Inhaler [Ventolin Hfa] 1 - 2 puff INHALATION Q4H PRN PRN 08/26/17 #1 inhaler Ipratropium/Albuterol Sulfate 3 ml INHALATION 4X/DAY PRN 03/11/18 [Duoneb] Nitroglycerin (INPATIENT USE) 0.4 mg SUBLINGUAL Q5M PRN 03/11/18 [Nitrostat] Roflumilast [Daliresp] 500 mcg PO DAILY 03/11/18 Furosemide [Lasix] 20 mg PO QWEEK PRN 10/10/18 Lorazepam [Ativan] 1 mg PO BID PRN PRN 10/27/18 primidone 50 mg tablet 50 mg PO BID tab 10/27/18 clopidogrel 75 mg tablet 75 mg PO DAILY #90 tab 11/08/18 losartan 25 mg tablet 12.5 mg PO DAILY #45 tab 11/08/18 magnesium citrate oral solution 300 ml PO X1 bottle 11/14/18 digoxin 250 mcg (0.25 mg) tablet 125 mcg PO DAILY #30 tab 01/27/19 Prednisone See Taper PO DAILY 03/13/19 Surgical History: Surgical History (Last Reviewed 11/14/18 @ 13:23 by Yuko Dangelo) 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 Cardiac stenting in 2001 Psychiatric History: Anxiety - With panic attacks Smoking Status: Former smoker - *Family History Maternal Family History: Family History (Last Reviewed 11/14/18 @ 13:23 by Yuko Dangelo) Mother CAD (coronary artery disease) Hypertension Brother CAD (coronary artery disease) Hypertension Other Heart disease History Items: Hypertension Paternal Family History: Family History (Last Reviewed 11/14/18 @ 13:23 by Yuko Dangelo) Mother CAD (coronary artery disease) Hypertension Brother CAD (coronary artery disease) Hypertension Other Heart disease History Items: - - father was a smoker with copd Review of Systems Constitutional: Denies: Chills, Fever, Weight Change HEENT: Denies: Head Aches, Sinus Congestion, Sinus Drainage Cardiovascular: Denies: Chest Pain, Palpitations Respiratory: Reports: Shortness of Breath, Shortness of breath at rest, Wheezing. Denies: Cough, Sputum production Gastrointestinal: Denies: Abdominal Pain, Nausea, Vomiting Genitourinary: Denies: Dysuria Musculoskeletal: Denies: Joint Pain, Joint Tenderness Skin: Denies: Rash, Wounds Neurological: Denies: Numbness, Tingling, Focal weakness Psychiatric: Reports: Anxiety. Denies: Depression, Homicidal Ideations, Suicidal Ideations Hematologic/ Lymphatic: Denies: Easy Bruising, Easy Bleeding VTE Information - Inpt Only VTE Present on Admission: No VTE Mechan Device Prophylaxis: None VTE Pharm Prophylaxis ordered?: Yes - Physical Exam Vitals/I&O's: Vital Signs Temp Pulse Resp BP Pulse Ox 97.7 F L 119 H 26 H 158/80 H 99 03/13/19 20:50 03/13/19 20:43 03/13/19 20:43 03/13/19 20:43 03/13/19 20:43 Oxygen Delivery Method Bi-pap Weight: 162 lb 0.636 oz Body Mass Index (BMI) 25.3 General: Alert, Oriented x3, Cooperative HEENT: Atraumatic, Normocephalic Neck: Supple Lungs: Diminished, Short of Breath, Tachypneic, Wheezes Cardiovascular: Regular rate, Normal S1, Normal S2, No murmurs, Tachycardic Abdomen: Bowel Sounds Present, Soft, Non Tender Extremities: No edema Skin: No rashes Musculoskeletal: No Tenderness to Palpation of Joints or Extremities Neurological: Neuro grossly intact Psych/Mental Status: Normal Affect, Appropriate Laboratory Results 03/13/19 20:45: WBC 4.9, RBC 4.30 L, Hgb 12.6 L, Hct 37.3 L, MCV 86.7, MCH 29.3, MCHC 33.8, RDW Std Deviation 41.6, RDW Coeff of Ye 13.2, Plt Count 252, MPV 10.1, Immature Gran % (Auto) 0.400, Neut % (Auto) 62.1, Lymph % (Auto) 19.5, [place] % (Auto) 17.2 H, Eos % (Auto) 0.4, Baso % (Auto) 0.4, Absolute Neuts (auto) 3.0, Absolute Lymphs (auto) 0.95, Nucleated RBC % 0 03/13/19 20:45: Sodium 142, Potassium 4.5, Chloride 111 H, Carbon Dioxide 25.0, Anion Gap 6, BUN 27 H, Creatinine 1.47 H, Estim Creat Clear Calc 37.47, Est GFR (MDRD) Af Amer 59 L, Est GFR (MDRD) Non-Af 49 L, BUN/Creatinine Ratio 18.4, Glucose 115 H, Calcium 8.8, Troponin I < 0.015 03/13/19 21:34: Specimen Type ART, Sample Site L Radial, pH 7.43, Bicarbonate Actual 23.6, POC Total CO2 25, Base Excess -1, O2 Saturation 99, O2 % 30, ABG pCO2 35.5, ABG pO2 121 H, [place] Test POS, Respiration Rate 12, O2 Delivery Device Bi / C PAP, EPAP 6, IPAP 12, Blood Gas Notified Whom ED MD, Blood Gas Notified Time 2124 Current Medications Sodium Chloride () 1,000 mls @ 150 mls/hr IV .[id number] ONE Stop: 03/14/19 03:30 Last Admin: 03/13/19 21:15 Dose: 150 mls/hr Documented by: Assessment/Plan All Active Problems (Last Reviewed 11/14/18 @ 13:23 by Yuko Dangelo) Chest pain (Acute) Normochromic normocytic anemia (Acute) Abnormal stress test (Acute) COPD (chronic obstructive pulmonary disease) (Acute) Chronic Problems (Last Reviewed 11/14/18 @ 13:23 by Yuko Dangelo) S/P coronary artery stent placement (Chronic ~11/07/18) PTCA/stent to mid RCA @ [facility] 10/18/01; PTCA/TAMI of the prox Diag #1, PTCA/TAMI of the prox LAD, PTCA/TAMI of the mid LCX 10/12/18; PTCA/TAMI to mid RCA and PTCA/TAMI to prox/ostial RCA 11/07/18 Atherosclerotic heart disease of [place] coronary artery without angina pectoris (Chronic) Chronic renal failure, stage 2 (mild) (Chronic) CARLIN (obstructive sleep apnea) (Chronic) GERD (gastroesophageal reflux disease) (Chronic) Anxiety disorder (Chronic) with panic attacks History of coronary angioplasty (Chronic) Type II diabetes mellitus (Chronic) Plan 1. Acute COPD exacerbation?IV Solu-Medrol 40 mg every 8 hours, DuoNeb INH every 4 hours as needed, continue BiPAP therapy, admit for observation to progressive care unit and discharge home when patient improves 2. Chronic renal failure?monitor BMP daily 3. CARLIN?continue BiPAP therapy 4. GERD continue home routine medication 5. Diabetes type 2?continue home medication 6. DVT prophylaxis?low molecular weight heparin
[2019-03-13 23:56] LABS: Bedside Glucose 161 mg/dL (70-110)
[2019-03-14] VITALS (16 sets, daily range): BP systolic 113–128; BP diastolic 64–67; PULSE 99–122; RESP 16–24; TEMP 36.5–36.6; O2SAT 85–99
[2019-03-14] MEDS: Ipratropium/Albuterol Sulfate 3 ML AMPUL.NEB INHALATION ×7 (00:43→23:00)
[2019-03-14] MEDS: 0.9% Saline Lock 10 ML Syringe IV (05:21)
[2019-03-14 06:46] LABS: Bedside Glucose 219 mg/dL (70-110)
[2019-03-14 07:16] LABS: Absolute Lymphocyte Count 0.27 X10^3/uL (0.83-4.51); Absolute Neutrophil Count 4.7 X10^3/uL (2.0-7.7); Basophil# 0.01 X10^3/uL; Basophil% 0.2 % (0-1); Hematocrit 35.6 % (40-54); Lymphocyte # 0.27 X10^3/ul (4.0); Lymphocyte % 5.3 % (19-41); Mean Corp Hgb Conc 33.7 g/dL (32-36); Mean Corpuscular Hgb 29.4 pg (27.0-32.0); Mean Corpuscular Volume 87.3 fL (80-94); Mean Platelet Vol. 9.9 fl (6.2-12.0); Monocyte# 0.14 X10^3/uL; Monocyte% 2.7 % (0-10); NRBC Flagged by Analyzer 0 % (0-5); Neutrophil # 4.68 X10^3/uL (2.7-7.7); Neutrophil % 91.2 % (47-70); POSITIVE DIFFERENTIAL YES; Platelet Count 202 K/mm3 (150-450); RBC Distribution Width CV 13.1 % (11.6-14.6); RBC Distribution Width SD 41.9 fl (35.1-43.9); Red Blood Count 4.08 M/mm3 (4.6-6.2); White Blood Count 5.1 K/mm3 (4.4-11.0)
[2019-03-14 07:18] LABS: Differential Indicated SCAN CRITERIA MET
[2019-03-14 07:34] LABS: ALB/GLOB Ratio 1.4 RATIO (0.9-2.4); AST(SGOT) 11 U/L (15-37); Alanine Aminotransfer ALT/SGPT 16 U/L (16-61); Albumin, Serum 3.7 g/dL (3.2-5.0); Alkaline Phosphatase 88 U/L (45-117); Anion Gap 6 (5-15); BUN 23 mg/dL (7-18); BUN/Creat Ratio 18.9 RATIO (10-20); Calcium,Total 8.5 mg/dL (8.5-10.1); Chloride 110 mmol/L (98-107); Creatinine, Serum 1.22 mg/dL (0.70-1.30); EST Glomerular Filtration Rate 61 mL/min (>60); Est Glom Filt Rate - Afr Amer 73 mL/min (>60); Estimated Creatinine Clearance 43.58 ml/min; Globulin 2.7 g/dL (2.2-4.2); Glucose 228 mg/dL (74-106); Potassium 4.2 mmol/L (3.5-5.1); Protein, Total 6.4 g/dL (6.4-8.2); Sodium Level 140 mmol/L (136-145)
[2019-03-14] MEDS: Losartan Potassium 25 MG Tablet 12.5 MG PO (09:02)
[2019-03-14] MEDS: guaiFENesin 1,200 MG Tablet 1200 MG PO ×2 (09:02→19:31)
[2019-03-14] MEDS: LORazepam 1 MG Tablet PO ×2 (09:02→19:31)
[2019-03-14] MEDS: Clopidogrel Bisulfate 75 MG Tablet PO (09:02)
[2019-03-14] MEDS: Primidone 50 MG Tablet PO ×2 (09:02→21:29)
[2019-03-14] MEDS: Pantoprazole Sodium 20 MG Tablet PO (09:03)
[2019-03-14] MEDS: Digoxin 125 MCG Tablet PO (09:03)
[2019-03-14] MEDS: Aspirin 81 MG TAB.CHEW PO (09:03)
[2019-03-14] MEDS: Finasteride 5 MG Tablet PO (09:04)
[2019-03-14] MEDS: Enoxaparin 40 MG/0.4 ML Syringe SC (09:05)
[2019-03-14 12:50] LABS: Bedside Glucose 177 mg/dL (70-110)
[2019-03-14] MEDS: predniSONE 20 MG Tablet 40 MG PO (13:15)
--- NOTE | 2019-03-14 14:37 | PCM.PROGNOTE ---
<Pao Hernandez - Last Filed: 03/14/19 14:53> Subjective: Patient seen and examined. Reports chest feels tight and reports dyspnea with minimal exertion. Denies cough, fever, chills. Respiratory panel positive for parainfluenza. 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 Hernandes regarding care. Patient was apparently in pulmonology office yesterday morning and doing well. However, he reports he had fairly sudden decline in respiratory status later that evening. Dr. Hernandes reports patient has end stage COPD and has chronic severe dyspnea. Dr. Hernandes states he will come see patient this evening or first thing tomorrow morning. - Physical Exam Vitals/I&O's: Vital Signs Temp Pulse Resp BP Pulse Ox 97.9 F 122 H 18 121/64 H 85 03/14/19 08:53 03/14/19 10:25 03/14/19 10:25 03/14/19 08:53 03/14/19 13:26 Oxygen Flow Rate (L/min) 2 Oxygen Delivery Method Room Air Weight: 157 lb 6.561 oz Body Mass Index (BMI) 25.4 Intake and Output for Last 24 Hours 03/12/19 03/13/19 03/14/19 23:59 23:59 23:59 Intake Total 720 / 720 Balance 720 / 720 General: Alert, Oriented x3, Cooperative HEENT: Atraumatic, PERRLA, EOMI, Normocephalic Neck: Supple, No JVD, Negative Carotid Bruits Lungs: - - Severely diminished, expiratory wheezes Cardiovascular: Regular Rhythm, Normal S1, Normal S2, No murmurs, Tachycardic Abdomen: Bowel Sounds Present, Soft, Non Tender, Non-Distended Extremities: No clubbing, No cyanosis, No edema, Capillary Refill Less than 3 Seconds Skin: No rashes, No breakdown Musculoskeletal: No Tenderness to Palpation of Joints or Extremities Neurological: Cranial nerves II-XII grossly intact, Neuro grossly intact Psych/Mental Status: Normal Affect, Appropriate Microbiology Past 72 Hours 03/14/19 10:50 Mucosa - Nasopharyngeal Respiratory Panel (PCR) - Final Parainfluenza 1 03/13/19 21:50 Mucosa - Nose Influenza Types A,B Direct FA (ELIZABETH) - Final Laboratory Results 03/13/19 20:45: WBC 4.9, RBC 4.30 L, Hgb 12.6 L, Hct 37.3 L, MCV 86.7, MCH 29.3, MCHC 33.8, RDW Std Deviation 41.6, RDW Coeff of Ye 13.2, Plt Count 252, MPV 10.1, Immature Gran % (Auto) 0.400, Neut % (Auto) 62.1, Lymph % (Auto) 19.5, [place] % (Auto) 17.2 H, Eos % (Auto) 0.4, Baso % (Auto) 0.4, Absolute Neuts (auto) 3.0, Absolute Lymphs (auto) 0.95, Nucleated RBC % 0 03/13/19 20:45: Sodium 142, Potassium 4.5, Chloride 111 H, Carbon Dioxide 25.0, Anion Gap 6, BUN 27 H, Creatinine 1.47 H, Estim Creat Clear Calc 37.47, Est GFR (MDRD) Af Amer 59 L, Est GFR (MDRD) Non-Af 49 L, BUN/Creatinine Ratio 18.4, Glucose 115 H, Calcium 8.8, Troponin I < 0.015 03/13/19 21:34: Specimen Type ART, Sample Site L Radial, pH 7.43, Bicarbonate Actual 23.6, POC Total CO2 25, Base Excess -1, O2 Saturation 99, O2 % 30, ABG pCO2 35.5, ABG pO2 121 H, Colby Test POS, Respiration Rate 12, O2 Delivery Device Bi / C PAP, EPAP 6, IPAP 12, Blood Gas Notified Whom ED , Blood Gas Notified Time 212403/13/19 23:48: POC Glucose 161 H 03/14/19 06:37: POC Glucose 219 H 03/14/19 06:50: WBC 5.1, RBC 4.08 L, Hgb 12.0 L, Hct 35.6 L, MCV 87.3, MCH 29.4, MCHC 33.7, RDW Std Deviation 41.9, RDW Coeff of Ye 13.1, Plt Count 202, MPV 9.9, Immature Gran % (Auto) 0.600, Neut % (Auto) 91.2 H, Lymph % (Auto) 5.3 L, [place] % (Auto) 2.7, Eos % (Auto) 0.0, Baso % (Auto) 0.2, Absolute Neuts (auto) 4.7, Absolute Lymphs (auto) 0.27 L, Nucleated RBC % 0, Differential Comment COMMENT 03/14/19 06:50: Sodium 140, Potassium 4.2, Chloride 110 H, Carbon Dioxide 24.0, Anion Gap 6, BUN 23 H, Creatinine 1.22, Estim Creat Clear Calc 43.58, Est GFR (MDRD) Af Amer 73, Est GFR (MDRD) Non-Af 61, BUN/Creatinine Ratio 18.9, Glucose 228 H, Calcium 8.5, Total Bilirubin 0.30, AST 11 L, ALT 16, Alkaline Phosphatase 88, Total Protein 6.4, Albumin 3.7, Globulin 2.7, Albumin/Globulin Ratio 1.4 03/14/19 11:18: POC Glucose 177 H Current Medications Albuterol Sulfate (Ventolin Aerosols) 2.5 mg INHALATION Q2H PRN PRN PRN Reason: Shortness of breath/wheezing Albuterol/Ipratropium (Duoneb) 3 ml INHALATION Q4H.RT [facility] Last Admin: 03/14/19 10:24 Dose: 3 ml Documented by: Aspirin (Aspirin, Baby) 81 mg PO DAILY@0800 [facility] Last Admin: 03/14/19 09:03 Dose: 81 mg Documented by: Clopidogrel Bisulfate (Plavix) 75 mg PO DAILY [facility] Last Admin: 03/14/19 09:02 Dose: 75 mg Documented by: Dextrose (D50w Syringe) 0 gm IV X1 PRN; Protocol PRN Reason: Hypoglycemia Digoxin (Lanoxin) 125 mcg PO DAILY [facility] Last Admin: 03/14/19 09:03 Dose: 125 mcg Documented by: Doxazosin Mesylate (Cardura) 4 mg PO QHS [facility] Last Admin: 03/14/19 00:00 Dose: 4 mg Documented by: Enoxaparin Sodium (Lovenox) 40 mg SC DAILY [facility] Last Admin: 03/14/19 09:05 Dose: 40 mg Documented by: Finasteride (Proscar) 5 mg PO DAILY [facility] Last Admin: 03/14/19 09:04 Dose: 5 mg Documented by: Furosemide (Lasix) 20 mg PO QWEEK PRN PRN Reason: EDEMA Glucagon () 1 mg IM .X1 PRN PRN Reason: Hypoglycemia Guaifenesin (Mucinex) 1,200 mg PO BID PRN PRN Reason: CONGESTION Last Admin: 03/14/19 09:02 Dose: 1,200 mg Documented by: Sodium Chloride () 250 mls @ 15 mls/hr IV .[id number] PRN PRN Reason: Saline Flush Lorazepam (Ativan) 1 mg PO BID PRN PRN PRN Reason: ANXIETY Last Admin: 03/14/19 09:02 Dose: 1 mg Documented by: Losartan Potassium (Cozaar) 12.5 mg PO DAILY [facility] Last Admin: 03/14/19 09:02 Dose: 12.5 mg Documented by: Magnesium Citrate (Citrate Of Magnesia) 300 ml PO X1 [facility] Last Admin: 03/14/19 00:00 Dose: Not Given Documented by: Mirtazapine (Remeron) 30 mg PO QHS [facility] Pantoprazole Sodium (Protonix) 20 mg PO DAILY [facility] Last Admin: 03/14/19 09:03 Dose: 20 mg Documented by: Prednisolone Acetate (Pred Forte Eye Drops (5 Ml)) 1 drop RIGHT EYE 4X/DAY PRN PRN PRN Reason: Dry Eye Prednisone () 40 mg PO DAILY@0800 [facility] Primidone (Mysoline) 50 mg PO BID [facility] Last Admin: 03/14/19 09:02 Dose: 50 mg Documented by: Sodium Chloride () 10 - 40 ml IV UD PRN PRN Reason: SALINE FLUSH Last Admin: 03/14/19 05:21 Dose: 10 ml Documented by: Theophylline (Kevin-Dur) 300 mg PO BID [facility] Last Admin: 03/14/19 09:05 Dose: 300 mg Documented by: Medical Necessity - Tobacco Use Smoking Status: Former smoker Assessment/Plan All Active Problems (Last Reviewed 11/14/18 @ 13:23 by Yuko Dangelo) Chest pain (Acute) Normochromic normocytic anemia (Acute) Abnormal stress test (Acute) COPD (chronic obstructive pulmonary disease) (Acute) 1. Acute exacerbation of chronic COPD secondary to parainfluenza-respiratory panel positive for parainfluenza. IV Solu-Medrol. Albuterol and DuoNeb aerosols. Patient follows with Dr. Hernandes who will see patient during admission. Oxygen stable on room air. 2. EREN on chronic kidney disease stage II-secondary to dehydration, resolved. 3. CAD/stents-continue aspirin, Plavix. 4. BPH-continue home regimen. 5. Anxiety-continue home scheduled and PRN regimen. 6. History of lung cancer status post bilateral partial lobectomy 7. CARLIN-continue BiPAP regimen. 8. GERD-continue PPI. DVT prophylaxis-Lovenox subcu Discharge planning: Anticipate discharge tomorrow if continued improvement, oxygen stable on room air. This patient was seen by BELINDA Villa under the supervision of Dr. Mckenna. <Ronnie Mckenna - Last Filed: 03/14/19 15:25> - Physical Exam Vitals/I&O's: Vital Signs Temp Pulse Resp BP Pulse Ox 36.5 C L 118 H 16 119/66 96 03/14/19 14:50 03/14/19 14:50 03/14/19 14:50 03/14/19 14:50 03/14/19 14:50 Oxygen Flow Rate (L/min) 2 Oxygen Delivery Method Room Air Weight: 71.4 kg Body Mass Index (BMI) 25.4 Intake and Output for Last 24 Hours 03/12/19 03/13/19 03/14/19 23:59 23:59 23:59 Intake Total 720 / 720 Balance 720 / 720 General: Alert, Cooperative HEENT: Atraumatic, Normocephalic Lungs: - - upper respiratory wheezes Cardiovascular: Regular Rhythm, Normal S1, Normal S2, No murmurs Abdomen: Bowel Sounds Present, Soft, Non Tender, Non-Distended Extremities: No edema, No Calf Tenderness Skin: No rashes, No breakdown Neurological: Cranial nerves II-XII grossly intact, Neuro grossly intact Psych/Mental Status: Normal Affect, Appropriate Microbiology Past 72 Hours 03/14/19 10:50 Mucosa - Nasopharyngeal Respiratory Panel (PCR) - Final Parainfluenza 1 03/13/19 21:50 Mucosa - Nose Influenza Types A,B Direct FA (ELIZABETH) - Final Laboratory Results 03/13/19 20:45: WBC 4.9, RBC 4.30 L, Hgb 12.6 L, Hct 37.3 L, MCV 86.7, MCH 29.3, MCHC 33.8, RDW Std Deviation 41.6, RDW Coeff of Ye 13.2, Plt Count 252, MPV 10.1, Immature Gran % (Auto) 0.400, Neut % (Auto) 62.1, Lymph % (Auto) 19.5, [place] % (Auto) 17.2 H, Eos % (Auto) 0.4, Baso % (Auto) 0.4, Absolute Neuts (auto) 3.0, Absolute Lymphs (auto) 0.95, Nucleated RBC % 0 03/13/19 20:45: Sodium 142, Potassium 4.5, Chloride 111 H, Carbon Dioxide 25.0, Anion Gap 6, BUN 27 H, Creatinine 1.47 H, Estim Creat Clear Calc 37.47, Est GFR (MDRD) Af Amer 59 L, Est GFR (MDRD) Non-Af 49 L, BUN/Creatinine Ratio 18.4, Glucose 115 H, Calcium 8.8, Troponin I < 0.015 03/13/19 21:34: Specimen Type ART, Sample Site L Radial, pH 7.43, Bicarbonate Actual 23.6, POC Total CO2 25, Base Excess -1, O2 Saturation 99, O2 % 30, ABG pCO2 35.5, ABG pO2 121 H, [place]by Test POS, Respiration Rate 12, O2 Delivery Device Bi / C PAP, EPAP 6, IPAP 12, Blood Gas Notified Whom ED , Blood Gas Notified Time 212403/13/19 23:48: POC Glucose 161 H 03/14/19 06:37: POC Glucose 219 H 03/14/19 06:50: WBC 5.1, RBC 4.08 L, Hgb 12.0 L, Hct 35.6 L, MCV 87.3, MCH 29.4, MCHC 33.7, RDW Std Deviation 41.9, RDW Coeff of Ye 13.1, Plt Count 202, MPV 9.9, Immature Gran % (Auto) 0.600, Neut % (Auto) 91.2 H, Lymph % (Auto) 5.3 L, [place] % (Auto) 2.7, Eos % (Auto) 0.0, Baso % (Auto) 0.2, Absolute Neuts (auto) 4.7, Absolute Lymphs (auto) 0.27 L, Nucleated RBC % 0, Differential Comment COMMENT 03/14/19 06:50: Sodium 140, Potassium 4.2, Chloride 110 H, Carbon Dioxide 24.0, Anion Gap 6, BUN 23 H, Creatinine 1.22, Estim Creat Clear Calc 43.58, Est GFR (MDRD) Af Amer 73, Est GFR (MDRD) Non-Af 61, BUN/Creatinine Ratio 18.9, Glucose 228 H, Calcium 8.5, Total Bilirubin 0.30, AST 11 L, ALT 16, Alkaline Phosphatase 88, Total Protein 6.4, Albumin 3.7, Globulin 2.7, Albumin/Globulin Ratio 1.4 03/14/19 11:18: POC Glucose 177 H Current Medications Albuterol Sulfate (Ventolin Aerosols) 2.5 mg INHALATION Q2H PRN PRN PRN Reason: Shortness of breath/wheezing Albuterol/Ipratropium (Duoneb) 3 ml INHALATION Q4H.RT [facility] Last Admin: 03/14/19 10:24 Dose: 3 ml Documented by: Aspirin (Aspirin, Baby) 81 mg PO DAILY@0800 [facility] Last Admin: 03/14/19 09:03 Dose: 81 mg Documented by: Clopidogrel Bisulfate (Plavix) 75 mg PO DAILY [facility] Last Admin: 03/14/19 09:02 Dose: 75 mg Documented by: Dextrose (D50w Syringe) 0 gm IV X1 PRN; Protocol PRN Reason: Hypoglycemia Digoxin (Lanoxin) 125 mcg PO DAILY [facility] Last Admin: 03/14/19 09:03 Dose: 125 mcg Documented by: Doxazosin Mesylate (Cardura) 4 mg PO QHS [facility] Last Admin: 03/14/19 00:00 Dose: 4 mg Documented by: Enoxaparin Sodium (Lovenox) 40 mg SC DAILY [facility] Last Admin: 03/14/19 09:05 Dose: 40 mg Documented by: Finasteride (Proscar) 5 mg PO DAILY [facility] Last Admin: 03/14/19 09:04 Dose: 5 mg Documented by: Furosemide (Lasix) 20 mg PO QWEEK PRN PRN Reason: EDEMA Glucagon () 1 mg IM .X1 PRN PRN Reason: Hypoglycemia Guaifenesin (Mucinex) 1,200 mg PO BID PRN PRN Reason: CONGESTION Last Admin: 03/14/19 09:02 Dose: 1,200 mg Documented by: Sodium Chloride () 250 mls @ 15 mls/hr IV .[id number] PRN PRN Reason: Saline Flush Lorazepam (Ativan) 1 mg PO BID PRN PRN PRN Reason: ANXIETY Last Admin: 03/14/19 09:02 Dose: 1 mg Documented by: Losartan Potassium (Cozaar) 12.5 mg PO DAILY [facility] Last Admin: 03/14/19 09:02 Dose: 12.5 mg Documented by: Magnesium Citrate (Citrate Of Magnesia) 300 ml PO X1 [facility] Last Admin: 03/14/19 00:00 Dose: Not Given Documented by: Mirtazapine (Remeron) 30 mg PO QHS [facility] Pantoprazole Sodium (Protonix) 20 mg PO DAILY [facility] Last Admin: 03/14/19 09:03 Dose: 20 mg Documented by: Prednisolone Acetate (Pred Forte Eye Drops (5 Ml)) 1 drop RIGHT EYE 4X/DAY PRN PRN PRN Reason: Dry Eye Prednisone () 40 mg PO DAILY@0800 [facility] Primidone (Mysoline) 50 mg PO BID [facility] Last Admin: 03/14/19 09:02 Dose: 50 mg Documented by: Sodium Chloride () 10 - 40 ml IV UD PRN PRN Reason: SALINE FLUSH Last Admin: 03/14/19 05:21 Dose: 10 ml Documented by: Theophylline (Kevin-Dur) 300 mg PO BID [facility] Last Admin: 03/14/19 09:05 Dose: 300 mg Documented by: Assessment/Plan Patient seen and examined independently. Data reviewed. I agree with the above note by the nurse practitioner. 1. Acute exacerbation of COPD Exacerbated by parainfluenza patient on room air Wean steroids down to prednisone 40 mg a day for 5 days. Patient and requested Dr. Hernandes to see him. 2. Debility Seen by therapy recommends additional therapy. Patient states that he had 12 weeks of being in rehab and had to be discharged because his insurance stopped paying. Explained that if he is exhausted his days he may not have any additional days since he is only been out of the facility under 30 days. Case management to assist. Code Visit Inpatient E&M: 83833 Subs Hosp L2
[2019-03-14 16:40] LABS: Bedside Glucose 156 mg/dL (70-110)
[2019-03-14] MEDS: Mirtazapine 30 MG Tablet PO (21:29)
[2019-03-14 21:35] LABS: Bedside Glucose 156 mg/dL (70-110)
[2019-03-14] MEDS: Doxazosin 4 MG Tablet PO ×2 (21:51)
[2019-03-15] VITALS (8 sets, daily range): BP systolic 127–131; BP diastolic 61–73; PULSE 108–115; RESP 16–20; TEMP 36.6–36.7; O2SAT 92–98
[2019-03-15] MEDS: Ipratropium/Albuterol Sulfate 3 ML AMPUL.NEB INHALATION ×3 (02:30→10:46)
[2019-03-15] MEDS: Finasteride 5 MG Tablet PO (03:26)
--- NOTE | 2019-03-15 03:55 | NURSING ---
pt up to brp with difficulty to void pt reports dribbling only. bladder scanned pt for 615 ml. pt requesting to take proscar now. discussed with pt the possibility of needing to straight cath. pt is adamant he does not want to be cath'd and is not in any discomfort. informed pt this RN will discuss care with hospitalist.
[2019-03-15 06:51] LABS: Bedside Glucose 127 mg/dL (70-110)
--- NOTE | 2019-03-15 07:39 | NURSING ---
pt having difficulty urinating with pain. bladder scanned for 760 cc.
[2019-03-15] MEDS: Primidone 50 MG Tablet PO (09:25)
[2019-03-15] MEDS: Enoxaparin 40 MG/0.4 ML Syringe SC (09:25)
[2019-03-15] MEDS: Losartan Potassium 25 MG Tablet 12.5 MG PO (09:25)
[2019-03-15] MEDS: guaiFENesin 1,200 MG Tablet 1200 MG PO (09:25)
[2019-03-15] MEDS: predniSONE 20 MG Tablet 40 MG PO (09:25)
[2019-03-15] MEDS: Aspirin 81 MG TAB.CHEW PO (09:25)
[2019-03-15] MEDS: Clopidogrel Bisulfate 75 MG Tablet PO (09:25)
[2019-03-15] MEDS: Pantoprazole Sodium 20 MG Tablet PO (09:25)
[2019-03-15] MEDS: Digoxin 125 MCG Tablet PO (09:26)
[2019-03-15] MEDS: LORazepam 1 MG Tablet PO (09:30)
--- NOTE | 2019-03-15 10:03 | PCM.DC ---
You will use the following diet at home:: No restrictions Discharge Activity: Return to Normal Activity Call your doctor if you observe: Shortness of breath, Dizziness, Fainting spells, Chest pain Allergies/Adverse Reactions: Allergies gabapentin Allergy (Unknown, Verified 03/13/19 23:20) Unknown acetylcysteine [From Mucomyst] Allergy (Verified 03/13/19 23:20) Shortness of breath alprazolam [From Xanax] Allergy (Verified 03/13/19 23:20) breathing issues belladonna alkaloids Allergy (Verified 03/13/19 23:20) Unknown cephalexin Allergy (Verified 03/13/19 23:20) Unknown ciprofloxacin [From Cipro] Allergy (Verified 03/13/19 23:20) Unknown dicyclomine Allergy (Verified 03/13/19 23:20) Unknown diltiazem Allergy (Verified 03/13/19 23:20) Unknown doxycycline Allergy (Verified 03/13/19 23:20) Shortness of breath ezetimibe Allergy (Verified 03/13/19 23:20) Unknown fluvastatin Allergy (Verified 03/13/19 23:20) Unknown metoprolol [From Toprol XL] Allergy (Verified 03/13/19 23:20) Unknown nitrofurantoin Allergy (Verified 03/13/19 23:20) Unknown phenobarbital Allergy (Verified 03/13/19 23:20) Unknown prochlorperazine [From Compazine] Allergy (Verified 03/13/19 23:20) Unknown simvastatin [From Zocor] Allergy (Verified 03/13/19 23:20) Unknown Lcnmyzr-Yrc-Gsr Reductase Inhibitor Allergy (Verified 03/13/19 23:20) Unknown sulfamethoxazole [From Bactrim] Allergy (Verified 03/13/19 23:20) Unknown tamsulosin [From Flomax] Allergy (Verified 03/13/19 23:20) Unknown trimethoprim [From Bactrim] Allergy (Verified 03/13/19 23:20) Unknown carvedilol Adverse Reaction (Verified 03/13/19 23:20) Vomiting Medications to take at Discharge Aspirin [Aspirin, Baby] 81 mg PO DAILY@0800 11/13/15 Budesonide/Formoterol 160/4.5 [Symbicort 160/4.5 Mcg Inhaler (SP)] 2 puff INHALATION BID 11/13/15 Doxazosin Mesylate [Cardura] 4 mg PO QHS 11/13/15 Finasteride [Proscar] 5 mg PO DAILY 11/13/15 Mirtazapine [Remeron] 30 mg PO QHS 11/13/15 Omeprazole [Prilosec] 20 mg PO DAILY 11/13/15 Theophylline [Kevin-Dur] 300 mg PO BID 11/13/15 prednisoLONE eye drops (1 mL) [Pred Forte eye drops (1 mL)] 1 drp RIGHT EYE 4X/DAY PRN PRN 11/13/15 Guaifenesin [Mucinex] 1,200 mg PO BID PRN 07/29/17 Albuterol Inhaler [Ventolin Hfa] 1 - 2 puff INHALATION Q4H PRN PRN #1 inhaler 08/26/17 Ipratropium/Albuterol Sulfate [Duoneb] 3 ml INHALATION 4X/DAY PRN 03/11/18 Nitroglycerin (INPATIENT USE) [Nitrostat] 0.4 mg SUBLINGUAL Q5M PRN 03/11/18 Roflumilast [Daliresp] 500 mcg PO DAILY 03/11/18 Furosemide [Lasix] 20 mg PO QWEEK PRN 10/10/18 Lorazepam [Ativan] 1 mg PO BID PRN PRN 10/27/18 primidone 50 mg tablet 50 mg PO BID tab 10/27/18 clopidogrel 75 mg tablet 75 mg PO DAILY #90 tab 11/08/18 losartan 25 mg tablet 12.5 mg PO DAILY #45 tab 11/08/18 magnesium citrate oral solution 300 ml PO X1 bottle 11/14/18 digoxin 250 mcg (0.25 mg) tablet 125 mcg PO DAILY #30 tab 01/27/19 Prednisone See Taper PO DAILY #30 tab 03/15/19 The following prescriptions were given: Prednisone See Taper PO DAILY #30 tab Transmission Status: Pending to [facility]/pharmacy #[id number] Primary Care Physician: Dutch Lee III, MD [Primary Care Provider] - Please follow up with your Primary Care Physician in: 1 week Test Results: Test results from this visit will be discussed in further detail at your follow-up appointment, if applicable. Please Follow Up With: Андрей Hernandes MD When: Call for appt wednesday Proposed Discharge Date: 03/15/19
--- NOTE | 2019-03-15 10:06 | PCM.DC.SUM ---
<Pao Hernandez - Last Filed: 03/15/19 10:11> Discharge Date and Diagnosis Date of Admission: 03/13/19 Date of Discharge: 03/15/19 - Primary Discharge Diagnosis 1. Acute exacerbation of chronic COPD secondary to parainfluenza 2. EREN on chronic kidney disease stage II 3. CAD/stents 4. BPH 5. Anxiety 6. History of lung cancer status post bilateral partial lobectomy 7. CARLIN 8. 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 No acute disease. Electronically Signed: Jose Francisco Benito MD at 21:19 EST , Service support , Dr. Hernandes- Pulmonary Medicine Operations: None Procedures: None Summary of Care Provided: The patient is a 78 year old M admitted 03/13/2019 due to shortness of breath. 1. Acute exacerbation of chronic COPD secondary to parainfluenza-respiratory panel positive for parainfluenza. Dr. Hernandes consulted during admission. Prednisone taper at discharge. Dr. Hernandes reports he is going to work on getting patient BiPAP at home. Patient is to follow-up with pulmonary medicine on Wednesday. Oxygen stable on room air. Continue home aerosol regimen. 2. EREN on chronic kidney disease stage II-secondary to dehydration, resolved. 3. CAD/stents-continue aspirin, Plavix. 4. BPH-continue home regimen. 5. Anxiety-continue home scheduled and PRN regimen. 6. History of lung cancer status post bilateral partial lobectomy 7. CARLIN-continue BiPAP regimen. 8. GERD-continue PPI. General: Alert, Oriented x3, Cooperative HEENT: Atraumatic, PERRLA, EOMI, Normocephalic Neck: Supple, No JVD, Negative Carotid Bruits Lungs: Severely diminished, expiratory wheezes- improved air movement and wheezing Cardiovascular: Regular Rhythm, Normal S1, Normal S2, No murmurs, Tachycardic Abdomen: Bowel Sounds Present, Soft, Non Tender, Non-Distended Extremities: No clubbing, No cyanosis, No edema, Capillary Refill Less than 3 Seconds Skin: No rashes, No breakdown Musculoskeletal: No Tenderness to Palpation of Joints or Extremities Neurological: Cranial nerves II-XII grossly intact, Neuro grossly intact Psych/Mental Status: Normal Affect, Appropriate Patient seen and examined prior to discharge. Physical assessment as noted above. Patient is stable for discharge with follow up recommendations as noted above. This patient was seen by BELINDA Villa under the supervision of Dr. Mckenna. - Physical Exam Vitals/I&O's: Vital Signs Temp Pulse Resp BP Pulse Ox 98.1 F 108 H 16 127/61 H 98 03/15/19 09:00 03/15/19 09:26 03/15/19 09:00 03/15/19 09:00 03/15/19 09:00 Oxygen Flow Rate (L/min) 2 Oxygen Delivery Method Nasal Cannula Weight: 157 lb 6.561 oz Body Mass Index (BMI) 25.4 Intake and Output for Last 24 Hours 03/13/19 03/14/19 03/15/19 23:59 23:59 23:59 Intake Total 720 / 960 640 / 640 Balance 720 / 960 640 / 640 Microbiology Past 72 Hours 03/14/19 10:50 Mucosa - Nasopharyngeal Respiratory Panel (PCR) - Final Parainfluenza 1 03/13/19 21:50 Mucosa - Nose Influenza Types A,B Direct FA (ELIZABETH) - Final Laboratory Results 03/14/19 11:18: POC Glucose 177 H 03/14/19 16:33: POC Glucose 156 H 03/14/19 21:23: POC Glucose 156 H 03/15/19 06:38: POC Glucose 127 H Current Medications Albuterol Sulfate (Ventolin Aerosols) 2.5 mg INHALATION Q2H PRN PRN PRN Reason: Shortness of breath/wheezing Albuterol/Ipratropium (Duoneb) 3 ml INHALATION Q4H.RT [facility] Last Admin: 03/15/19 07:34 Dose: 3 ml Documented by: Aspirin (Aspirin, Baby) 81 mg PO DAILY@0800 [facility] Last Admin: 03/15/19 09:25 Dose: 81 mg Documented by: Clopidogrel Bisulfate (Plavix) 75 mg PO DAILY [facility] Last Admin: 03/15/19 09:25 Dose: 75 mg Documented by: Digoxin (Lanoxin) 125 mcg PO DAILY [facility] Last Admin: 03/15/19 09:26 Dose: 125 mcg Documented by: Doxazosin Mesylate (Cardura) 4 mg PO QHS [facility] Last Admin: 03/14/19 21:51 Dose: 4 mg Documented by: Enoxaparin Sodium (Lovenox) 40 mg SC DAILY [facility] Last Admin: 03/15/19 09:25 Dose: 40 mg Documented by: Finasteride (Proscar) 5 mg PO DAILY [facility] Last Admin: 03/15/19 03:26 Dose: 5 mg Documented by: Furosemide (Lasix) 20 mg PO QWEEK PRN PRN Reason: EDEMA Glucagon () 1 mg IM .X1 PRN PRN Reason: Hypoglycemia Guaifenesin (Mucinex) 1,200 mg PO BID PRN PRN Reason: CONGESTION Last Admin: 03/15/19 09:25 Dose: 1,200 mg Documented by: Sodium Chloride () 250 mls @ 15 mls/hr IV .[id number] PRN PRN Reason: Saline Flush Dextrose (Dextrose 10%-Water) 250 mls @ 999 mls/hr IV X1 PRN; Protocol Lorazepam (Ativan) 1 mg PO BID PRN PRN PRN Reason: ANXIETY Last Admin: 03/15/19 09:30 Dose: 1 mg Documented by: Losartan Potassium (Cozaar) 12.5 mg PO DAILY [facility] Last Admin: 03/15/19 09:25 Dose: 12.5 mg Documented by: Mirtazapine (Remeron) 30 mg PO QHS [facility] Last Admin: 03/14/19 21:29 Dose: 30 mg Documented by: Pantoprazole Sodium (Protonix) 20 mg PO DAILY [facility] Last Admin: 03/15/19 09:25 Dose: 20 mg Documented by: Prednisolone Acetate (Pred Forte Eye Drops (5 Ml)) 1 drop RIGHT EYE 4X/DAY PRN PRN PRN Reason: Dry Eye Prednisone () 40 mg PO DAILY@0800 [facility] Last Admin: 03/15/19 09:25 Dose: 40 mg Documented by: Primidone (Mysoline) 50 mg PO BID [facility] Last Admin: 03/15/19 09:25 Dose: 50 mg Documented by: Sodium Chloride () 10 - 40 ml IV UD PRN PRN Reason: SALINE FLUSH Last Admin: 03/14/19 05:21 Dose: 10 ml Documented by: Theophylline (Kevin-Dur) 300 mg PO BID [facility] Last Admin: 03/15/19 09:26 Dose: 300 mg Documented by: Discharge Diet: No Restrictions Discharge Activity: Return to Normal Activity Call your doctor if you observe: Shortness of breath, Dizziness, Fainting spells, Chest pain Home Medications: Medications to take at Discharge Aspirin [Aspirin, Baby] 81 mg PO DAILY@0800 11/13/15 Budesonide/Formoterol 160/4.5 [Symbicort 160/4.5 Mcg Inhaler (SP)] 2 puff INHALATION BID 11/13/15 Doxazosin Mesylate [Cardura] 4 mg PO QHS 11/13/15 Finasteride [Proscar] 5 mg PO DAILY 11/13/15 Mirtazapine [Remeron] 30 mg PO QHS 11/13/15 Omeprazole [Prilosec] 20 mg PO DAILY 11/13/15 Theophylline [Kevin-Dur] 300 mg PO BID 11/13/15 prednisoLONE eye drops (1 mL) [Pred Forte eye drops (1 mL)] 1 drp RIGHT EYE 4X/DAY PRN PRN 11/13/15 Guaifenesin [Mucinex] 1,200 mg PO BID PRN 07/29/17 Albuterol Inhaler [Ventolin Hfa] 1 - 2 puff INHALATION Q4H PRN PRN #1 inhaler 08/26/17 Ipratropium/Albuterol Sulfate [Duoneb] 3 ml INHALATION 4X/DAY PRN 03/11/18 Nitroglycerin (INPATIENT USE) [Nitrostat] 0.4 mg SUBLINGUAL Q5M PRN 03/11/18 Roflumilast [Daliresp] 500 mcg PO DAILY 03/11/18 Furosemide [Lasix] 20 mg PO QWEEK PRN 10/10/18 Lorazepam [Ativan] 1 mg PO BID PRN PRN 10/27/18 primidone 50 mg tablet 50 mg PO BID tab 10/27/18 clopidogrel 75 mg tablet 75 mg PO DAILY #90 tab 11/08/18 losartan 25 mg tablet 12.5 mg PO DAILY #45 tab 11/08/18 magnesium citrate oral solution 300 ml PO X1 bottle 11/14/18 digoxin 250 mcg (0.25 mg) tablet 125 mcg PO DAILY #30 tab 01/27/19 Prednisone See Taper PO DAILY #30 tab 03/15/19 Following Prescrptions Were Given to Patient: Prednisone See Taper PO DAILY #30 tab Transmission Status: Received by [id number] Primary Care Physician: Dutch Lee III, MD [Primary Care Provider] - Please follow up with your Primary Care Physician in: 1 week Please Follow Up With: Андрей Hernandes MD When: Call for appt wednesday Disposition: Home Minutes spent on discharge:: 35 Patient Condition:: Stable Medical Necessity - Tobacco Use Smoking Status: Former smoker Meaningful Use Info Meaningful Use Diagnoses (Choose all that apply): None applicable <Ronnie Mckenna - Last Filed: 03/15/19 15:23> Discharge Date and Diagnosis - Secondary Discharge Diagnosis Chronic Problems (Last Reviewed 11/14/18 @ 13:23 by Yuko Dangelo) S/P coronary artery stent placement (Chronic ~11/07/18) PTCA/stent to mid RCA @ [facility] 10/18/01; PTCA/TAMI of the prox Diag #1, PTCA/TAMI of the prox LAD, PTCA/TAMI of the mid LCX 10/12/18; PTCA/TAMI to mid RCA and PTCA/TAMI to prox/ostial RCA 11/07/18 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 Data reviewed. I agree with the above note by the nurse practitioner. The patient is a 78 year old M presents with shortness of breath. Patient had some some wheezing mostly upper respiratory. Patient was found to have positive parainfluenza virus. Patient was on room air. Patient was transitioned over for methylprednisolone to prednisone and remained stable. Patient was seen in consultation by Dr. Hernandes and he stated that patient should be DNR no intubation and I will try to facilitate a BiPAP for home. Patient be discharged with prednisone. Patient is otherwise well. Patient very apprehensive about going home and will would happen if he become short of breath again. [] - Physical Exam Vitals/I&O's: Vital Signs Temp Pulse Resp BP Pulse Ox 36.7 C 110 H 18 127/61 H 97 03/15/19 09:00 03/15/19 10:46 03/15/19 10:46 03/15/19 09:00 03/15/19 11:10 Oxygen Flow Rate (L/min) [ 0 AMBULATING on Room Air] Oxygen Flow Rate (L/min) [At 0 REST on Room Air] Oxygen Flow Rate (L/min) 2 Oxygen Delivery Method Room Air Weight: 71.4 kg Body Mass Index (BMI) 25.4 Intake and Output for Last 24 Hours 03/13/19 03/14/19 03/15/19 23:59 23:59 23:59 Intake Total 720 / 960 640 / 640 Output Total 600 / 600 Balance 720 / 960 40 / 40 General: Alert, No apparent distress HEENT: Atraumatic, Normocephalic Oral: Moist Mucosa, No Gingival or Mucosal Lesions/ Ulcerations Neck: No Nodes, Trachea Midline Lungs: Clear to auscultation, Normal air movement, No rhonchi, Wheezes Cardiovascular: Regular rate, Regular Rhythm, Normal S1, Normal S2 Abdomen: Bowel Sounds Present, Soft, Non Tender, Non-Distended Extremities: No edema, No Calf Tenderness Psych/Mental Status: Normal Affect, Appropriate Microbiology Past 72 Hours 03/14/19 10:50 Mucosa - Nasopharyngeal Respiratory Panel (PCR) - Final Parainfluenza 1 03/13/19 21:50 Mucosa - Nose Influenza Types A,B Direct FA (ELIZABETH) - Final Laboratory Results 03/14/19 16:33: POC Glucose 156 H 03/14/19 21:23: POC Glucose 156 H 03/15/19 06:38: POC Glucose 127 H 03/15/19 11:15: POC Glucose 84 Discharge Diet: No Restrictions Discharge Activity: Return to Normal Activity Call your doctor if you observe: Shortness of breath, Dizziness, Fainting spells, Chest pain Disposition: Home Minutes spent on discharge:: 35 Patient Condition:: Stable Medical Necessity - Tobacco Use Smoking Status: Former smoker Meaningful Use Info Meaningful Use Diagnoses (Choose all that apply): None applicable Code Visit Inpatient E&M: 95267 Disch Hosp
--- NOTE | 2019-03-15 10:39 | CASEMGMT ---
SOFIA PERSON assessment: Face to Face with patient for initial transition planning/care coordination assessment. SOFIA PERSON introduced self and role at [facility], pt voices understanding and consents to assessment at this time. Pt is sitting up in chair in no distress at this time. Pt is A/Ox4 at this time and answers all questions appropriately at this time. Care providers, pharmacy, and demographics verified at this time. Presentation: SOB at home, retracting and tripoding per EMS, pt placed on bipap by EMS Admitting dx: COPD exacerbation PCP: Orlando Lee III OR-clinicals as well as d/c instruc/summ faxed to [place] transfer data center consultant: jessica Hernandes Preferred Pharmacy: [facility] Shaun Insurance: [facility] A/B, [employer], [place] Prescription Benefit: [place] Living Will/HPOA: Pt has LW/HPOA and is aware that they are on file at [facility] at this time. Pt's HPOA is his , Keturah Higgins. LNOK: Keturah Higgins, ; Juliann Hernandez, daughter Living Arrangements: Pt states lives with in 1 story condo with basement and states no concerns at home at this time. Pt states is independent with ADL's. Transportation: Pt states drives self and states no transportation concerns at this time. DME/HHC: Pt states has a walker, shower bench, and cpap thru [employer]. Pt states does not use the walker and pt states no need for any further DME at this time. Pt states no hx of HHC or SNF in the past. Pt states he would like [facility] if home oxygen is needed but states 'I really don't want it.' Pt states no concerns with going home at time of discharge. Pt states is retired. Pt states quit smoking about 31yrs ago and does not drink ETOH. Pt states no further concerns/needs at this time. CM to follow for any further discharge planning/needs. Advised pt to ask for CM if any further questions/concerns/needs arise, voices understanding. Pt Goal: Home Plan: Home [place] SOFIA PERSON
--- NOTE | 2019-03-15 11:12 | CASEMGMT ---
Per Kieran BLACK, pt does not qualify for home oxygen at this time. Pt states no further concerns/needs with going home at this time. Pt awaiting arrival for discharge. Vani BLACK CM
[2019-03-15 11:30] LABS: Bedside Glucose 84 mg/dL (70-110)
--- NOTE | 2019-03-15 14:21 | CASEMGMT ---
LEONARDO briefly spoke with patient and his about Palliative Care. They were on their way out the door. After LEONARDO explained Palliative Care LEONARDO gave them a pamphlet and encouraged them to talk with Dr Hernandes. Jelena ZAVALETA
--- NOTE | 2019-03-16 13:03 | CASEMGMT ---
SOFIA PERSON Discharge Follow-Up Phone Call. Lace: 11 Strata: 3 Discharge Date: 03/15/19 Adm Dx: COPD Exac. Attempted discharge follow-up phone call. No answer. Message left for pt to return call to POMOLOGY TEACHERAlayna BLACK CM, if he has any questions about the discharge instructions, medications, or follow-up appts. Phone number provided. Lawanda HUTTON RN, CM
== END 2019-03-15 14:17 | disposition home or self-care (01) | DRG 191 ==
LOC: ED 20:57 → PCU 22:44
PROVIDERS: Admitting Provider Family Medicine; Emergency Provider Emergency Medicine; Family Provider Family Medicine; PCP Family Medicine; Referring Provider Family Medicine
DX: J44.1 Chronic obstructive pulmonary disease with (acute) exacerbation (principal); N17.9 Acute kidney failure, unspecified; E86.0 Dehydration; I25.10 Atherosclerotic heart disease of native coronary artery without angina pectoris; Z95.5 Presence of coronary angioplasty implant and graft; Z85.118 Personal history of other malignant neoplasm of bronchus and lung; Z90.2 Acquired absence of lung [part of]; G47.33 Obstructive sleep apnea (adult) (pediatric); E11.22 Type 2 diabetes mellitus with diabetic chronic kidney disease; K21.9 Gastro-esophageal reflux disease without esophagitis; N40.0 Benign prostatic hyperplasia without lower urinary tract symptoms; Z87.891 Personal history of nicotine dependence; Z79.82 Long term (current) use of aspirin; B34.8 Other viral infections of unspecified site; F41.0 Panic disorder [episodic paroxysmal anxiety]; N18.2 Chronic kidney disease, stage 2 (mild)
CPT/HCPCS: 36415; 36600; 71045; 80048; 80053; 82803; 82962; 84484; 85025; 87040; 87633; 87804; 93005; 94002; 94640; 94667; 94668; 97163; 97166; 99251; 99285; J7030; A4216; G0463

== ENCOUNTER 2019-03-18 20:04 | Inpatient (IN) | payer MEDICARE, BC, SELFPAY ==
[2018-11-07 13:51] VITALS: BMI 23.5
[2019-03-13 23:13] VITALS: BMI 25.4
[2019-03-18] VITALS (7 sets, daily range): BP systolic 133–142; BP diastolic 65–73; PULSE 86–133; RESP 12–23; TEMP 36.7; O2SAT 98–100; BMI 26.1
[2019-03-18] MEDS: Albuterol 2.5 MG/3 ML VIAL.NEB. INHALATION ×3 (20:11→22:15)
[2019-03-18] MEDS: Ipratropium/Albuterol Sulfate 3 ML AMPUL.NEB INHALATION (20:11)
--- NOTE | 2019-03-18 20:14 | RAD_ITS ---
STUDY: X-RAY CHEST REASON FOR EXAM: Male, 78 years old. Shortness of breath. TECHNIQUE: Single frontal view of the chest. 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 Scarring in both apices unchanged. [place] within both upper lobes unchanged. There is no demonstrated pleural abnormality. Borderline cardiomegaly unchanged. Normal mediastinum and cinthya. Normal visualized pulmonary arteries. Normal visualized aortic arch and descending thoracic aorta. Normal visualized thoracic spine. Normal visualized ribs, clavicles, and shoulders. There is no demonstrated abnormality of the visualized soft tissue structures of the upper abdomen. RAD/Chest 1 View (Portable) IMPRESSION: Stable chest with no acute superimposed finding. Electronically Signed: Ramone Valenzuela MD at 21:13 EST , Service support ,
--- NOTE | 2019-03-18 20:14 | EKG12_ITS ---
Test Reason : SOB Blood Pressure : / mmHG Vent. Rate : 124 BPM Atrial Rate : 124 BPM P-R Int : 122 ms QRS Dur : 086 ms QT Int : 290 ms P-R-T Axes : 090 084 070 degrees QTc Int : 416 ms Sinus tachycardia Otherwise normal ECG Confirmed by KAMRAN STOUT, JOHN ([id number]), video editor CHRISTIANE ARANDA ([id number]) on 03/22/2019 12:58:55 PM Referred By: Kirti Solomon Confirmed By:JOHN ANDREW MD
--- NOTE | 2019-03-18 20:18 | ED.DCSUM_ITS ---
History of Present Illness Chief Complaint: Shortness of Breath Informant: Patient, Spouse/S.O., EMS Onset: Days Timing: Continuous Quality: Dyspnea on exertion, Wheezing Worsened by: Coughing Relieved by: - - CPAP Associated Symptoms: Cough Chest Pain: None Narrative: Patient is an 78-year-old male with history of significant COPD presenting with worsening shortness of breath. Patient was just discharged from the hospital after 2 night stay 4 days ago. Over the past few days he is had worsening shortness of breath and difficulty breathing. He has associated cough. He denies any associated fever or chills. Patient had significantly increased work of breathing. He was placed on CPAP per EMS and transitioned over to BiPAP in the emergency room. He states this is helping his breathing. He is currently on prednisone. He denies any swelling of his legs. He denies any nausea, vomiting or other associated symptoms. Past Medical History - Allergies and Home Meds Allergies/Adverse Reactions: Allergies gabapentin Allergy (Unknown, Verified 03/13/19 23:20) Unknown acetylcysteine [From Mucomyst] Allergy (Verified 03/13/19 23:20) Shortness of breath alprazolam [From Xanax] Allergy (Verified 03/13/19 23:20) breathing issues belladonna alkaloids Allergy (Verified 03/13/19 23:20) Unknown cephalexin Allergy (Verified 03/13/19 23:20) Unknown ciprofloxacin [From Cipro] Allergy (Verified 03/13/19 23:20) Unknown dicyclomine Allergy (Verified 03/13/19 23:20) Unknown diltiazem Allergy (Verified 03/13/19 23:20) Unknown doxycycline Allergy (Verified 03/13/19 23:20) Shortness of breath ezetimibe Allergy (Verified 03/13/19 23:20) Unknown fluvastatin Allergy (Verified 03/13/19 23:20) Unknown metoprolol [From Toprol XL] Allergy (Verified 03/13/19 23:20) Unknown nitrofurantoin Allergy (Verified 03/13/19 23:20) Unknown phenobarbital Allergy (Verified 03/13/19 23:20) Unknown prochlorperazine [From Compazine] Allergy (Verified 03/13/19 23:20) Unknown simvastatin [From Zocor] Allergy (Verified 03/13/19 23:20) Unknown Lxivtaj-Ebj-Pez Reductase Inhibitor Allergy (Verified 03/13/19 23:20) Unknown sulfamethoxazole [From Bactrim] Allergy (Verified 03/13/19 23:20) Unknown tamsulosin [From Flomax] Allergy (Verified 03/13/19 23:20) Unknown trimethoprim [From Bactrim] Allergy (Verified 03/13/19 23:20) Unknown carvedilol Adverse Reaction (Verified 03/13/19 23:20) Vomiting Primary Care Physician: Dutch Lee III, MD [Primary Care Provider] - Past Medical History: - - COPD, obstructive sleep apnea, GERD, anxiety, coronary artery disease, CKD 2, BPH, diabetes mellitus type 2 Surgical History: - - Lobectomy, cardiac stent placement Smoking Status: Former smoker - Family History Maternal Family History: Family History (Last Reviewed 11/14/18 @ 13:23 by Yuko Dangelo) Mother CAD (coronary artery disease) Hypertension Brother CAD (coronary artery disease) Hypertension Other Heart disease Family History: Reports: Hypertension Additional Family History: Heart failure Paternal Family History: Family History (Last Reviewed 11/14/18 @ 13:23 by Yuko Dangelo) Mother CAD (coronary artery disease) Hypertension Brother CAD (coronary artery disease) Hypertension Other Heart disease Family History: Reports: - - father was a smoker with copd Additional Family History: COPD Review of Systems General: Reports: Malaise. Denies: Chills, Fever, Sweats Eyes: Denies: Visual changes - bilaterally, Diplopia ENT: Denies: Rhinorrhea, Sore throat Cardiovascular: Denies: Chest pain, Palpitations Respiratory: Reports: Dyspnea, Cough. Denies: Dyspnea on exertion Gastrointestinal: Denies: Abdominal pain, Nausea, Vomiting, Diarrhea, Melena, Hematochezia Genitourinary: Denies: Dysuria, Hematuria, Frequency Musculoskeletal: Denies: Back pain, Extremity Pain Skin: Denies: Rash, Wounds Neurological: Denies: Headache, Weakness, Numbness Physical Exam Vital Signs/Narrative: Vital Signs Temp Pulse Resp BP Pulse Ox 03/18/19 20:12 123 H 21 H 99 03/18/19 20:05 98.1 F 133 H 22 H 142/73 H 98 Inital Vital Signs reviewed: Yes General: Well nourished, Well developed, Acute Distress Head: Normocephalic, Atraumatic Eyes: Perrl, EOMI ENT: Moist mucous membranes, No rhinorrhea Neck: Supple, Nontender Cardiovascular: Regular rhythm, No murmurs, Tachycardia Respiratory: Chest nontender, Wheezing, Diminished, Decreased Air Movement, - - tachypnea . Negative for: No distress Abdomen: Soft, Nontender, Nondistended, Normal bowel sounds Back: Nontender, Normal Inspection Extremities: Nontender, No edema Skin: Normal color, No rash Neurological: Alert, Oriented x3, Cranial nerves II-XII grossly intact, Normal Strength, Normal Sensation Psychological: Normal affect, Normal Mood Diagnostic/Tx/Re-eval Chest X-Ray - ED: 1 View, Read by ED Physician, Read by Radiologist, Unchanged - Hyperinflated Clinical Impression(s) from Imaging Studies Chest X-Ray 03/18/19 20:14 IMPRESSION: Stable chest with no acute superimposed finding. Electronically Signed: Ramone Valenzuela MD at 21:13 EST , Service support , Laboratory Data 03/18/19 03/18/19 03/18/19 20:12 20:12 20:12 WBC 7.9 RBC 4.33 L Hgb 12.7 L Hct 37.9 L MCV 87.5 MCH 29.3 MCHC 33.5 RDW Std Deviation 41.6 RDW Coeff of Ye 13.0 Plt Count 242 MPV 10.1 Immature Gran % (Auto) 2.300 H Neut % (Auto) 76.6 H Lymph % (Auto) 11.2 L Grimes % (Auto) 9.3 Eos % (Auto) 0.3 Baso % (Auto) 0.3 Absolute Neuts (auto) 6.1 Absolute Lymphs (auto) 0.88 Nucleated RBC % 0 Sodium 142 Potassium 4.0 Chloride 109 H Carbon Dioxide 26.0 Anion Gap 7 BUN 19 H Creatinine 1.03 Estim Creat Clear Calc 51.62 Est GFR (MDRD) Af Amer 89 Est GFR (MDRD) Non-Af 74 BUN/Creatinine Ratio 18.4 Glucose 167 H Lactic Acid 3.2 H* Calcium 8.7 Troponin I < 0.015 - Rhythm Strip Rhythm Strip: Sinus Tach Rate: 124 Ectopy: None - EKG Initial EKG Interpretation: Sinus Tachycardia, - - Sinus tachycardia at a rate of 124Normal intervalsNormal axisNormal ST segments Treatment - Dyspnea: Oxygen, Albuterol, Atrovent, - - Bipap Repeat Evaluation: Improved - Medical Decision Making Patient evaluated for respiratory distress. On arrival he is quite tachypneic with increased work of breathing and limited airflow. Patient was placed on CPAP for EMS and was transitioned to BiPAP in the emergency room. He is not hypoxic but is significantly tachycardic and tachypneic. This does improve with BiPAP. Patient's troponin is normal. His chest x-ray is hyperinflated. Likely this is COPD. I do not suspect an acute infection at this time. His lactate is elevated however this is likely due to hypoxia and his respiratory effort. Patient is given 1.5 L of fluid in the emergency room. He is given aerosols blood and through his BiPAP which improved his respiratory status. He was also given IV Solu-Medrol. He is admitted to the ICU. Discussed the case with Dr. Solomon. She is agreeable with this plan. He has stabilized at time of disposition. ED Disposition - Plan for ED Patient: Disposition: Acute Care Hospital [facility] Diagnosis: Acute exacerbation of chronic obstructive pulmonary disease (COPD), Respiratory distress Referrals: Dutch Lee III, MD [Primary Care Provider] -
[2019-03-18 20:23] LABS: Absolute Lymphocyte Count 0.88 X10^3/uL (0.83-4.51); Absolute Neutrophil Count 6.1 X10^3/uL (2.0-7.7); Basophil# 0.02 X10^3/uL; Basophil% 0.3 % (0-1); Eosinophil# 0.02 X10^3/uL; Eosinophils% 0.3 % (0-5); Hematocrit 37.9 % (40-54); Hemoglobin 12.7 g/dL (13.0-16.5); Lymphocyte # 0.88 X10^3/ul (4.0); Lymphocyte % 11.2 % (19-41); Mean Corp Hgb Conc 33.5 g/dL (32-36); Mean Corpuscular Hgb 29.3 pg (27.0-32.0); Mean Corpuscular Volume 87.5 fL (80-94); Mean Platelet Vol. 10.1 fl (6.2-12.0); Monocyte# 0.73 X10^3/uL; Monocyte% 9.3 % (0-10); NRBC Flagged by Analyzer 0 % (0-5); Neutrophil # 6.06 X10^3/uL (2.7-7.7); Neutrophil % 76.6 % (47-70); Platelet Count 242 K/mm3 (150-450); RBC Distribution Width SD 41.6 fl (35.1-43.9); Red Blood Count 4.33 M/mm3 (4.6-6.2); White Blood Count 7.9 K/mm3 (4.4-11.0)
[2019-03-18] MEDS: MethylPREDNISolone 125 MG/2 ML Vial IV (20:23)
[2019-03-18 20:58] LABS: Anion Gap 7 (5-15); BUN 19 mg/dL (7-18); BUN/Creat Ratio 18.4 RATIO (10-20); Calcium,Total 8.7 mg/dL (8.5-10.1); Chloride 109 mmol/L (98-107); Creatinine, Serum 1.03 mg/dL (0.70-1.30); EST Glomerular Filtration Rate 74 mL/min (>60); Est Glom Filt Rate - Afr Amer 89 mL/min (>60); Estimated Creatinine Clearance 51.62 ml/min; Glucose 167 mg/dL (74-106); Sodium Level 142 mmol/L (136-145)
[2019-03-18 21:05] LABS: Lactic Acid 3.2 mmol/L (0.4-1.9)
--- NOTE | 2019-03-18 21:51 | HP.PCM_ITS ---
Problem List (1) Acute respiratory failure with hypoxemia Status: Acute (2) COPD (chronic obstructive pulmonary disease) Status: Acute Qualifiers: COPD type: COPD with acute exacerbation Qualified Code(s): J44.1 - Chronic obstructive pulmonary disease with (acute) exacerbation History of Present Illness Date of Admission: 03/18/19 The patient is a 78 year old M who was recently d/c from [facility] on 03/15/19 after and admission for AECOPD 2/2 parainfluenza virus. He was d/c with a prednisone taper at d/c and his plate developer (Dr. Hernandes) was planning on working with him to get home BIPAP. He presented to the ED with worsening SOB over the last few days and was placed on CPAP by the squad and then transitioned to NIV in the ED. His work of breathing dramatically reduced per the ED attending and the pt reports that he is feeling much better on the NIV. He states that he has an associated cough but it is not productive. CXR is unimpressive. Sats and all other vitals are stable at the present time on the NIV. He was initally mildly hypertensive and tachycardic but have improved. Pt was d/c on RA and pt states that he doesnt wear O2 at home regularly. He also reports only using his home CPAP when he is ill or SOB. Past Medical History Past Medical History (Chronic Problems): Chronic Problems (Last Reviewed 11/14/18 @ 13:23 by Yuko Dangelo) S/P coronary artery stent placement (Chronic ~11/07/18) PTCA/stent to mid RCA @ [facility] 10/18/01; PTCA/TAMI of the prox Diag #1, PTCA/TAMI of the prox LAD, PTCA/TAMI of the mid LCX 10/12/18; PTCA/TAMI to mid RCA and PTCA/TAMI to prox/ostial RCA 11/07/18 Atherosclerotic heart disease of [place] coronary artery without angina pectoris (Chronic) Chronic renal failure, stage 2 (mild) (Chronic) CARLIN (obstructive sleep apnea) (Chronic) GERD (gastroesophageal reflux disease) (Chronic) Anxiety disorder (Chronic) with panic attacks History of coronary angioplasty (Chronic) Type II diabetes mellitus (Chronic) Medical History: Medical History (Last Reviewed 03/18/19 @ 21:59 by Kirti Juanito, DO) S/P coronary artery stent placement (Chronic) Onset Date: ~11/07/18 Z95.5 PTCA/stent to mid RCA @ [facility] 10/18/01; PTCA/TAMI of the prox Diag #1, PTCA/TAMI of the prox LAD, PTCA/TAMI of the mid LCX 10/12/18; PTCA/TAMI to mid RCA and PTCA/TAMI to prox/ostial RCA 11/07/18 Atherosclerotic heart disease of [place] coronary artery without angina pectoris (Chronic) I25.10 Chest pain (Acute) R07.9 Chronic renal failure, stage 2 (mild) (Chronic) N18.2 CARLIN (obstructive sleep apnea) (Chronic) G47.33 GERD (gastroesophageal reflux disease) (Chronic) K21.9 Abnormal stress test (Acute) R94.39 Anxiety disorder (Chronic) F41.9 with panic attacks COPD (chronic obstructive pulmonary disease) (Acute) J44.9 Type II diabetes mellitus (Chronic) E11.9 BPH (benign prostatic hyperplasia) N40.0 Former smoker Z87.891 quit in the early History of malignant neoplasm of lung Z85.118 in 2010? Allergies gabapentin Allergy (Unknown, Verified 03/13/19 23:20) Unknown acetylcysteine [From Mucomyst] Allergy (Verified 03/13/19 23:20) Shortness of breath alprazolam [From Xanax] Allergy (Verified 03/13/19 23:20) breathing issues belladonna alkaloids Allergy (Verified 03/13/19 23:20) Unknown cephalexin Allergy (Verified 03/13/19 23:20) Unknown ciprofloxacin [From Cipro] Allergy (Verified 03/13/19 23:20) Unknown dicyclomine Allergy (Verified 03/13/19 23:20) Unknown diltiazem Allergy (Verified 03/13/19 23:20) Unknown doxycycline Allergy (Verified 03/13/19 23:20) Shortness of breath ezetimibe Allergy (Verified 03/13/19 23:20) Unknown fluvastatin Allergy (Verified 03/13/19 23:20) Unknown metoprolol [From Toprol XL] Allergy (Verified 03/13/19 23:20) Unknown nitrofurantoin Allergy (Verified 03/13/19 23:20) Unknown phenobarbital Allergy (Verified 03/13/19 23:20) Unknown prochlorperazine [From Compazine] Allergy (Verified 03/13/19 23:20) Unknown simvastatin [From Zocor] Allergy (Verified 03/13/19 23:20) Unknown Zffvjvu-Pnn-Wex Reductase Inhibitor Allergy (Verified 03/13/19 23:20) Unknown sulfamethoxazole [From Bactrim] Allergy (Verified 03/13/19 23:20) Unknown tamsulosin [From Flomax] Allergy (Verified 03/13/19 23:20) Unknown trimethoprim [From Bactrim] Allergy (Verified 03/13/19 23:20) Unknown carvedilol Adverse Reaction (Verified 03/13/19 23:20) Vomiting Home Medications: Ambulatory Orders Medication Instructions Recorded Aspirin [Aspirin, Baby] 81 mg PO DAILY@0800 11/13/15 Budesonide/Formoterol 160/4.5 2 puff INHALATION BID 11/13/15 [Symbicort 160/4.5 Mcg Inhaler (SP)] Doxazosin Mesylate [Cardura] 4 mg PO QHS 11/13/15 Finasteride [Proscar] 5 mg PO DAILY 11/13/15 Mirtazapine [Remeron] 30 mg PO QHS 11/13/15 Omeprazole [Prilosec] 20 mg PO DAILY 11/13/15 Theophylline [Kevin-Dur] 300 mg PO BID 11/13/15 prednisoLONE eye drops (1 mL) 1 drp RIGHT EYE 4X/DAY PRN PRN 11/13/15 [Pred Forte eye drops (1 mL)] Guaifenesin [Mucinex] 1,200 mg PO BID PRN 07/29/17 Albuterol Inhaler [Ventolin Hfa] 1 - 2 puff INHALATION Q4H PRN PRN 08/26/17 #1 inhaler Ipratropium/Albuterol Sulfate 3 ml INHALATION 4X/DAY PRN 03/11/18 [Duoneb] Nitroglycerin (INPATIENT USE) 0.4 mg SUBLINGUAL Q5M PRN 03/11/18 [Nitrostat] Roflumilast [Daliresp] 500 mcg PO DAILY 03/11/18 Furosemide [Lasix] 20 mg PO QWEEK PRN 10/10/18 Lorazepam [Ativan] 1 mg PO BID PRN PRN 10/27/18 primidone 50 mg tablet 50 mg PO BID tab 10/27/18 clopidogrel 75 mg tablet 75 mg PO DAILY #90 tab 11/08/18 losartan 25 mg tablet 12.5 mg PO DAILY #45 tab 11/08/18 magnesium citrate oral solution 300 ml PO X1 bottle 11/14/18 digoxin 250 mcg (0.25 mg) tablet 125 mcg PO DAILY #30 tab 01/27/19 Prednisone See Taper PO DAILY #30 tab 03/15/19 Surgical History: Surgical History (Last Reviewed 11/14/18 @ 13:23 by Yuko Dangelo) 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 BL upper lobes Presence of coronary angioplasty implant and graft Onset Date: ~11/07/18 Z95.5 PTCA/stent to mid RCA @ [facility] 10/18/01; PTCA/TAMI of the prox Diag #1, PTCA/TAMI of the prox LAD, PTCA/TAMI of the mid LCX 10/12/18; ; PTCA/TAMI to mid RCA and PTCA/TAMI to prox/ostial RCA 11/07/18 Surgical History: - - lung reduction surgery and cancer removal.cath with stent 11-12 years ago. Cardiac stenting in 2001 Psychiatric History: Anxiety - With panic attacks Smoking Status: Former smoker - *Family History Maternal Family History: Family History (Last Reviewed 11/14/18 @ 13:23 by Yuko Dangelo) Mother CAD (coronary artery disease) Hypertension Brother CAD (coronary artery disease) Hypertension Other Heart disease History Items: Hypertension Paternal Family History: Family History (Last Reviewed 11/14/18 @ 13:23 by Yuko Dangelo) Mother CAD (coronary artery disease) Hypertension Brother CAD (coronary artery disease) Hypertension Other Heart disease History Items: - - father was a smoker with copd Review of Systems Constitutional: Reports: Weakness. Denies: Anorexia, Chills, Fever, Night Sweats, Malaise, Weight Change, Fatigue Eyes: Denies: Blurred vision, Cataracts, Conjunctivae Inflammation, Double vision, Drainage, Eyelid Inflammation, Pain, Redness, Vision Change HEENT: Denies: Difficulty Hearing, Difficulty Swallowing, Dysphasia, Ear Pain, Eye Pain, Hard of Hearing, Head Aches, Hearing Changes, Nasal bleeding, Nasal Congestion, Post Nasal Drip, Sinus Congestion, Sinus Drainage, Sore Throat, Visual Changes Cardiovascular: Denies: Chest Pain, Claudication, Chest Pressure, Chest Tig htness, Edema, Heaviness, Light Headedness, Orthopnea, Palpitations, Paroxysmal Noc. Dyspnea, Syncope Respiratory: Reports: Cough, Shortness of Breath, Shortness of breath at rest, Shortness of breath upon exertion, Wheezing. Denies: Hemoptysis, Pleuritic Pain, Sputum production Gastrointestinal: Denies: Abdominal Pain, Constipation, Diarrhea, Dyspepsia, Hematemesis, Hematochezia, Nausea, Melena, Vomiting Genitourinary: Denies: Dysuria, Frequency, Hematuria, Hesitancy, Incontinence, Urgency Musculoskeletal: Reports: Joint stiffness. Denies: Joint Pain, Joint swelling, Joint Tenderness Skin: Denies: Dryness, Jaundice, Lesions, Pruritis, Rash, Skin Changes, Wounds Neurological: Denies: Balance problems, Blurred vision, Double vision, Change in Speech, Slurred speech, Confusion, Difficulty swallowing, Focal weakness, Headaches, Incoordination, Numbness, Tingling, Tremor, Seizures Psychiatric: Reports: Anxiety. Denies: Depression, Homicidal Ideations, Suicidal Ideations Endocrine: Denies: Change in Body Habitus, Heat/ Cold Intolerance, Polydipsia, Polyuria, Hx of Thyroiditis Hematologic/ Lymphatic: Denies: Adenopathy, Anemia, Easy Bruising, Easy Bleeding, Petechiae, Purpura, Hx of blood clot, Hx of blood transfusion VTE Information - Inpt Only VTE Present on Admission: No VTE Mechan Device Prophylaxis: SCD's VTE Pharm Prophylaxis ordered?: Yes Patient Problems: Active and Suspected Problems (Last Reviewed 11/14/18 @ 13:23 by Yuko Arredondo sarah) Acute respiratory failure with hypoxemia (Acute) - Physical Exam Vitals/I&O's: Vital Signs Temp Pulse Resp BP Pulse Ox 98.1 F 123 H 21 H 142/73 H 99 03/18/19 20:05 03/18/19 20:12 03/18/19 20:12 03/18/19 20:05 03/18/19 20:12 Oxygen Delivery Method Bi-pap Weight: 73.5 kg Body Mass Index (BMI) 26.1 Intake and Output for Last 24 Hours 03/16/19 03/17/19 03/18/19 23:59 23:59 23:59 Intake Total 500 / 500 Balance 500 / 500 General: Alert, Oriented x3, Cooperative, No apparent distress, Well developed, Well nourished, - - non-toxic, at bedside, appears comfortable on NIV HEENT: Atraumatic, PERRLA, EOMI, Normocephalic, EAC Clear - dry skin in R ear auricle Oral: Moist Mucosa, No Gingival or Mucosal Lesions/ Ulcerations, - - no noted thrush but exam limited by NIV Neck: Supple, No JVD, Negative Carotid Bruits, Negative Hepatojugular Reflux, No Nodes, No Nuchal Rigidity, Trachea Midline, Thyroid Normal Size and Texture Lungs: No rhonchi, No rales, Wheezes - harsh diffuse wheeze, - - poor air moveme nt, comfortable breathing at the present time on NIV Cardiovascular: Regular Rhythm, Normal S1, Normal S2, No murmurs, No rub noted, No Gallop, Tachycardic - mild Abdomen: Bowel Sounds Present, Soft, Non Tender, Non-Distended, No Hepato- splenomegaly, No hernias noted Extremities: No clubbing, No cyanosis, Capillary Refill Less than 3 Seconds, Edema - trace, Peripheral Pulses Normal Skin: No rashes, No breakdown Musculoskeletal: No Tenderness to Palpation of Joints or Extremities, No Muscle Wasting Lymphatic: No Cervical, Supraclavicular, or Inguinal Adenopathy Neurological: Cranial nerves II-XII grossly intact, Deep Tendon Reflexes 2+/4 and Symmetrical, Neuro grossly intact, Motor Exam 5/5 strength throughout Psych/Mental Status: Normal Affect, Appropriate, Alert and oriented to time, place, person, mood and affect Laboratory Results 03/18/19 20:12: WBC 7.9, RBC 4.33 L, Hgb 12.7 L, Hct 37.9 L, MCV 87.5, MCH 29.3, MCHC 33.5, RDW Std Deviation 41.6, RDW Coeff of Ye 13.0, Plt Count 242, MPV 10.1, Immature Gran % (Auto) 2.300 H, Neut % (Auto) 76.6 H, Lymph % (Auto) 11.2 L, Cobb % (Auto) 9.3, Eos % (Auto) 0.3, Baso % (Auto) 0.3, Absolute Neuts (auto) 6.1, Absolute Lymphs (auto) 0.88, Nucleated RBC % 0 03/18/19 20:12: Sodium 142, Potassium 4.0, Chloride 109 H, Carbon Dioxide 26.0, Anion Gap 7, BUN 19 H, Creatinine 1.03, Estim Creat Clear Calc 51.62, Est GFR (MDRD) Af Amer 89, Est GFR (MDRD) Non-Af 74, BUN/Creatinine Ratio 18.4, Glucose 167 H, Calcium 8.7, Troponin I < 0.015 03/18/19 20:12: Lactic Acid 3.2 H* Current Medications Sodium Chloride () 500 mls @ 999 mls/hr IV .Q31M ONE Last Infusion: 03/18/19 21:08 Dose: Infused Documented by: Vancomycin HCl 1,000 mg/ (Dextrose) 270 mls @ 250 mls/hr IV X1 ONE Stop: 03/18/19 22:52 Piperacillin Sod/Tazobactam (Sod 3.375 gm/ Sodium Chloride) 50 mls @ 12.5 mls/hr IV Q8 JENNIFER Sodium Chloride () 1,000 mls @ 999 mls/hr IV .Q1H1M ONE Stop: 03/18/19 22:49 Assessment/Plan All Active Problems (Last Reviewed 11/14/18 @ 13:23 by Yuko Dangelo) Acute respiratory failure with hypoxemia (Acute) Chest pain (Acute) Normochromic normocytic anemia (Acute) Abnormal stress test (Acute) COPD (chronic obstructive pulmonary disease) (Acute) Acute Hypoxemic Respiratory Failure 2/2 AECOPD -NIV with current settings except for reduction in I-time to 0.9 form 1.15 and FiO2 to 35% -Aggressive pulmonary toilet -Solumedrol 60 q 8 -pt was to wean to 30 mg of prednisone tomorrow -AM ABG -Azithro/Vanc x1 and Zosyn for now as pt has had a recent admission -suspect will be able to stop soon -Blood cx drawn by ED x2. sputum cx pending -no infiltrate on CXR -repeat CXR in am -check Theophylline level and continue drug for now -NPO except for meds and sips/chips -IVF 50 cc/hr -may need to stop if volume status prohibits--> suspect pt has some PAH with the severity of his lung disease -Check flu and viral swabs (I would expect parainfluenza virus still may be +) -consult to ICU -Consult Dr. Hernandes for pulm on floor CKD stage 3 -creat seems to be at baseline -will hydrate gently for now Mild Anemia -no s/o bleeding -will trend CAD s/p PCI -PTCA/stent to mid RCA @ [facility] 10/18/01; PTCA/TAMI of the prox Diag #1, PTCA/TAMI of the prox LAD, PTCA/TAMI of the mid LCX 10/12/18; PTCA/TAMI to mid RCA and PTCA/TAMI to prox/ostial RCA 11/07/18 -continue home meds -check dig level BPH -continue home meds H/O Lung Ca -not active CARLIN -pt not compliant with CPAP -Dr. Hernandes is in the process of trying to get him BIPAP GERD -continue home meds DM-2 -takes no meds at home for this -will add SSI R q 6 hrs for now -pt with higher BGT 2/2 steroids Anxiety -continue home prn meds DVT Propylaxis -SCD and LMWH Code Visit Inpatient E&M: 43915 Init Hosp L3
[2019-03-18] MEDS: 0.9% Normal Saline 1,000 ML 999 ML IV (22:58)
[2019-03-18] MEDS: Vancomycin IV 1,000 MG/200 ML BAG 200 MG IV (23:28)
[2019-03-19] VITALS (31 sets, daily range): BP systolic 127–169; BP diastolic 67–97; PULSE 99–140; RESP 12–28; TEMP 36–36.7; O2SAT 94–100; BMI 25.9; BMI 26.0
[2019-03-19 00:19] LABS: Reflex Lactate? Y
[2019-03-19] MEDS: Lactated Ringers 1,000 ML 50 ML IV ×2 (00:55→19:08)
[2019-03-19] MEDS: Insulin Lispro 100 UNIT/ML INSULN.PEN SC ×3 (01:09→22:03)
[2019-03-19 01:10] LABS: Bedside Glucose 192 mg/dL (70-110)
[2019-03-19 01:52] LABS: Lactic Acid 2.3 mmol/L (0.4-1.9)
[2019-03-19 02:29] LABS: Digoxin Level 0.83 ng/mL (0.80-2.00)
[2019-03-19] MEDS: Ipratropium/Albuterol Sulfate 3 ML AMPUL.NEB INHALATION ×6 (02:47→21:00)
--- NOTE | 2019-03-19 04:15 | RAD_ITS ---
HISTORY: AECOPD EXAM: XR Chest 1 View: COMPARISON: Yesterday FINDINGS: # of images incl. paperwork: 2 Pulmonary hyperexpansion persists. Multiple healed left rib fractures are unchanged. Calcific plaque within the aortic arch persists. Possibly a peripheral parenchymal pulmonary perfusion consistent with emphysema is the same. Right axillary surgical clip persists. Hyperdense material possibly representing metal are present within the left axilla. Anastomotic staple lines are present within both lung apices consistent with at least partial lung resection within the upper lobes No focal airspace disease is perceived. Heart is not enlarged. Thoracic spondylosis persists Pulmonary vascularity is distinct. No effusions. RAD/Chest 1 View (Portable) IMPRESSION: Stable emphysema.. at 0512 Reported and signed by: Melecio Palomino MD Electronically Signed: Melecio Palomino MD at 5:11 EST Tel , Service support ,
[2019-03-19 05:21] LABS: Absolute Lymphocyte Count 0.31 X10^3/uL (0.83-4.51); Absolute Neutrophil Count 5.4 X10^3/uL (2.0-7.7); Hematocrit 35.2 % (40-54); Hemoglobin 11.7 g/dL (13.0-16.5); Lymphocyte # 0.31 X10^3/ul (4.0); Lymphocyte % 5.3 % (19-41); Mean Corp Hgb Conc 33.2 g/dL (32-36); Mean Corpuscular Hgb 29.1 pg (27.0-32.0); Mean Corpuscular Volume 87.6 fL (80-94); Mean Platelet Vol. 10.7 fl (6.2-12.0); Monocyte% 1.7 % (0-10); NRBC Flagged by Analyzer 0 % (0-5); Neutrophil # 5.37 X10^3/uL (2.7-7.7); Neutrophil % 91.1 % (47-70); POSITIVE DIFFERENTIAL YES; Platelet Count 212 K/mm3 (150-450); RBC Distribution Width CV 13.4 % (11.6-14.6); Red Blood Count 4.02 M/mm3 (4.6-6.2); White Blood Count 5.9 K/mm3 (4.4-11.0)
[2019-03-19 05:24] LABS: Differential Indicated SCAN CRITERIA MET
[2019-03-19 05:44] LABS: ALB/GLOB Ratio 1.3 RATIO (0.9-2.4); AST(SGOT) 9 U/L (15-37); Alanine Aminotransfer ALT/SGPT 18 U/L (16-61); Albumin, Serum 3.4 g/dL (3.2-5.0); Alkaline Phosphatase 75 U/L (45-117); Anion Gap 5 (5-15); BUN 16 mg/dL (7-18); Chloride 111 mmol/L (98-107); EST Glomerular Filtration Rate 76 mL/min (>60); Est Glom Filt Rate - Afr Amer 92 mL/min (>60); Estimated Creatinine Clearance 51.25 ml/min; Globulin 2.6 g/dL (2.2-4.2); Glucose 215 mg/dL (74-106); Sodium Level 143 mmol/L (136-145)
[2019-03-19] MEDS: 0.9% Saline Lock 10 ML Syringe IV ×3 (06:45→21:59)
[2019-03-19] MEDS: Enoxaparin 40 MG/0.4 ML Syringe SC (06:47)
--- NOTE | 2019-03-19 07:51 | CON.PCM_ITS ---
Problem List (1) Acute exacerbation of chronic obstructive pulmonary disease (COPD) Status: Chronic (2) Respiratory distress Status: Acute (3) S/P coronary artery stent placement Status: Chronic Comment: PTCA/stent to mid RCA @ [facility] 10/18/01; PTCA/TAMI of the prox Diag #1, PTCA/TAMI of the prox LAD, PTCA/TAMI of the mid LCX 10/12/18; PTCA/TAMI to mid RCA and PTCA/TAMI to prox/ostial RCA 11/07/18 (4) Atherosclerotic heart disease of [place] coronary artery without angina pectoris Status: Chronic Qualifiers: [place] vs. transplanted heart: [place] heart Qualified Code(s): I25.10 - Atherosclerotic heart disease of [place] coronary artery without angina pectoris (5) Normochromic normocytic anemia Status: Acute (6) Chronic renal failure, stage 2 (mild) Status: Chronic (7) CARLIN (obstructive sleep apnea) Status: Chronic (8) GERD (gastroesophageal reflux disease) Status: Chronic (9) Anxiety disorder Status: Chronic Comment: with panic attacks (10) History of coronary angioplasty Status: Chronic (11) Type II diabetes mellitus Status: Chronic Reason for Consult Date of Consultation: 03/19/19 Reason for Consultation: COPD exacerbation History of Present Illness: The patient is an 78 year old M, with past medical history listed below, who presented to [facility] on 03/18/2019 secondary to progressive shortness of breath. Patient was recently discharged from [facility] 4 days prior to presentation after a 2-day stay secondary to COPD exacerbation. Patient states that he went home and continued to have worsening shortness of breath. Patient denied any associated fevers or chills, but was placed on CPAP when evaluated by EMS. Patient was transitioned over to BiPAP in the emergency room and felt that this made a significant improvement. Patient was on prednisone since discharge from the hospital. Patient had denied any lower extremity edema, nausea, vomiting or diarrhea. In the ER, patient was noted to be significantly tachypneic with limited airflow despite BiPAP therapy. Chest x-ray showed hyperinflation. Patient was given 1- 1/2 L of IV fluids, aerosols and steroids. Patient was admitted to the intensive care unit for further evaluation. Since being in the intensive care unit, patient has been significantly tachycardic, but maintaining saturations on room air. Patient states he feels a tickle in his throat leading to coughing paroxysmally. Patient feels that he had no significant change in his status since discharge from the hospital. Patient has been seen by Dr. Hernandes in the past and has been on theophylline for several years. Patient states that his crib pad maker recently decreased his beta-marry dose secondary to concerns for orthostatic symptoms. Patient is unclear on his baseline respiratory status. Patient does not typically use supplemental oxygen at home. On previous hospitalization, patient was noted to have parainfluenza 1 on viral evaluation Review of systems otherwise negative from a constitutional, HEENT, respiratory, cardiovascular, GI, genitourinary, musculoskeletal, skin, neurologic, psychiatric and hematologic system unless stated above. Past Medical History Past Medical History (Chronic Problems): Chronic Problems (Last Reviewed 03/18/19 @ 21:59 by Kirti Solomon DO) Acute exacerbation of chronic obstructive pulmonary disease (COPD) (Chronic) S/P coronary artery stent placement (Chronic ~11/07/18) PTCA/stent to mid RCA @ [facility] 10/18/01; PTCA/TAMI of the prox Diag #1, PTCA/TAMI of the prox LAD, PTCA/TAMI of the mid LCX 10/12/18; PTCA/TAMI to mid RCA and PTCA/TAMI to prox/ostial RCA 11/07/18 Atherosclerotic heart disease of [place] coronary artery without angina pectoris (Chronic) Chronic renal failure, stage 2 (mild) (Chronic) CARLIN (obstructive sleep apnea) (Chronic) GERD (gastroesophageal reflux disease) (Chronic) Anxiety disorder (Chronic) with panic attacks History of coronary angioplasty (Chronic) Type II diabetes mellitus (Chronic) Medical History: Medical History (Last Reviewed 03/18/19 @ 21:59 by Kirti Solomon DO) S/P coronary artery stent placement (Chronic) Onset Date: ~11/07/18 Z95.5 PTCA/stent to mid RCA @ [facility] 10/18/01; PTCA/TAMI of the prox Diag #1, PTCA/TAMI of the prox LAD, PTCA/TAMI of the mid LCX 10/12/18; PTCA/TAMI to mid RCA and PTCA/TAMI to prox/ostial RCA 11/07/18 Atherosclerotic heart disease of [place] coronary artery without angina pectoris (Chronic) I25.10 Chest pain (Acute) R07.9 Chronic renal failure, stage 2 (mild) (Chronic) N18.2 CARLIN (obstructive sleep apnea) (Chronic) G47.33 GERD (gastroesophageal reflux disease) (Chronic) K21.9 Abnormal stress test (Acute) R94.39 Anxiety disorder (Chronic) F41.9 with panic attacks COPD (chronic obstructive pulmonary disease) (Acute) J44.9 Type II diabetes mellitus (Chronic) E11.9 BPH (benign prostatic hyperplasia) N40.0 Former smoker Z87.891 quit in the early History of malignant neoplasm of lung Z85.118 in 2010? Allergies gabapentin Allergy (Unknown, Verified 03/13/19 23:20) Unknown acetylcysteine [From Mucomyst] Allergy (Verified 03/13/19 23:20) Shortness of breath alprazolam [From Xanax] Allergy (Verified 03/13/19 23:20) breathing issues belladonna alkaloids Allergy (Verified 03/13/19 23:20) Unknown cephalexin Allergy (Verified 03/13/19 23:20) Unknown ciprofloxacin [From Cipro] Allergy (Verified 03/13/19 23:20) Unknown dicyclomine Allergy (Verified 03/13/19 23:20) Unknown diltiazem Allergy (Verified 03/13/19 23:20) Unknown doxycycline Allergy (Verified 03/13/19 23:20) Shortness of breath ezetimibe Allergy (Verified 03/13/19 23:20) Unknown fluvastatin Allergy (Verified 03/13/19 23:20) Unknown metoprolol [From Toprol XL] Allergy (Verified 03/13/19 23:20) Unknown nitrofurantoin Allergy (Verified 03/13/19 23:20) Unknown phenobarbital Allergy (Verified 03/13/19 23:20) Unknown prochlorperazine [From Compazine] Allergy (Verified 03/13/19 23:20) Unknown simvastatin [From Zocor] Allergy (Verified 03/13/19 23:20) Unknown Amwwepy-Bdf-Mlg Reductase Inhibitor Allergy (Verified 03/13/19 23:20) Unknown sulfamethoxazole [From Bactrim] Allergy (Verified 03/13/19 23:20) Unknown tamsulosin [From Flomax] Allergy (Verified 03/13/19 23:20) Unknown trimethoprim [From Bactrim] Allergy (Verified 03/13/19 23:20) Unknown carvedilol Adverse Reaction (Verified 03/13/19 23:20) Vomiting Home Medications: Ambulatory Orders Medication Instructions Recorded Aspirin [Aspirin, Baby] 81 mg PO DAILY@0800 11/13/15 Budesonide/Formoterol 160/4.5 2 puff INHALATION BID 11/13/15 [Symbicort 160/4.5 Mcg Inhaler (SP)] Doxazosin Mesylate [Cardura] 4 mg PO QHS 11/13/15 Finasteride [Proscar] 5 mg PO DAILY 11/13/15 Mirtazapine [Remeron] 30 mg PO QHS 11/13/15 Omeprazole [Prilosec] 20 mg PO DAILY 11/13/15 Theophylline [Kevin-Dur] 300 mg PO BID 11/13/15 prednisoLONE eye drops (1 mL) 1 drp RIGHT EYE 4X/DAY PRN PRN 11/13/15 [Pred Forte eye drops (1 mL)] Guaifenesin [Mucinex] 1,200 mg PO BID PRN 07/29/17 Albuterol Inhaler [Ventolin Hfa] 1 - 2 puff INHALATION Q4H PRN PRN 08/26/17 #1 inhaler Ipratropium/Albuterol Sulfate 3 ml INHALATION 4X/DAY PRN 03/11/18 [Duoneb] Nitroglycerin (INPATIENT USE) 0.4 mg SUBLINGUAL Q5M PRN 03/11/18 [Nitrostat] Roflumilast [Daliresp] 500 mcg PO DAILY 03/11/18 Furosemide [Lasix] 20 mg PO QWEEK PRN 10/10/18 Lorazepam [Ativan] 1 mg PO BID PRN PRN 10/27/18 primidone 50 mg tablet 50 mg PO BID tab 10/27/18 clopidogrel 75 mg tablet 75 mg PO DAILY #90 tab 11/08/18 losartan 25 mg tablet 12.5 mg PO DAILY #45 tab 11/08/18 magnesium citrate oral solution 300 ml PO X1 bottle 11/14/18 digoxin 250 mcg (0.25 mg) tablet 125 mcg PO DAILY #30 tab 01/27/19 Prednisone See Taper PO DAILY #30 tab 03/15/19 Surgical History: Surgical History (Last Reviewed 11/14/18 @ 13:23 by Yuko Dangelo) 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 BL upper lobes Presence of coronary angioplasty implant and graft Onset Date: ~11/07/18 Z95.5 PTCA/stent to mid RCA @ [facility] 10/18/01; PTCA/TAMI of the prox Diag #1, PTCA/TAMI of the prox LAD, PTCA/TAMI of the mid LCX 10/12/18; ; PTCA/TAMI to mid RCA and PTCA/TAMI to prox/ostial RCA 11/07/18 Surgical History: - - Lobectomy, cardiac stent placement Psychiatric History: Anxiety - With panic attacks Smoking Status: Former smoker - *Family History Maternal Family History: Family History (Last Reviewed 11/14/18 @ 13:23 by Yuko Dangelo) Mother CAD (coronary artery disease) Hypertension Brother CAD (coronary artery disease) Hypertension Other Heart disease History Items: Hypertension Paternal Family History: Family History (Last Reviewed 11/14/18 @ 13:23 by Yuko Dangelo) Mother CAD (coronary artery disease) Hypertension Brother CAD (coronary artery disease) Hypertension Other Heart disease History Items: - - father was a smoker with copd Review of Systems Comment: See HPI Patient Problems: Active and Suspected Problems (Last Reviewed 03/18/19 @ 21:59 by Kirti Solomon DO) Acute respiratory failure with hypoxemia (Acute) Respiratory distress (Acute) Objective: Chest x-ray was personally reviewed and I agree with the formal interpretation. Patient did have a recent heart catheterization with stent placement on 11/07/2018 to the mid RCA and proximal RCA with good response. Patient is reportedly in cardiac rehab. Patient reportedly has not tolerated beta-blockers in the past per cath report. No pulmonary function tests are available for review. Patient does see Dr. Hernandes at baseline, but states he is willing to find someone else. - Physical Exam Vitals/I&O's: Vital Signs Temp Pulse Resp BP Pulse Ox 36.7 C 105 H 15 143/76 H 97 03/19/19 04:00 03/19/19 06:00 03/19/19 06:00 03/19/19 06:00 03/19/19 06:00 Oxygen Delivery Method Room Air Weight: 70.76 kg Body Mass Index (BMI) 25.9 Intake and Output for Last 24 Hours 1203/18/19 03/19/19 23:59 23:59 23:59 Intake Total 1550 / 1550 949.17 / 949.17 Output Total 1675 / 1675 Balance 1550 / 1550 -725.83 / -725.83 General: Alert, Oriented x3, Cooperative, - - Mild conversational dyspnea. Appears stated age. HEENT: Atraumatic, PERRLA, EOMI, Normocephalic, - - No scleral icterus or injection noted Oral: Moist Mucosa, No Gingival or Mucosal Lesions/ Ulcerations Neck: Supple, No JVD, No Nodes, Trachea Midline Lungs: No rhonchi, No rales, Diminished, Wheezes - Globally, - - Symmetric expansion. No dullness to percussion Cardiovascular: Normal S1, Normal S2, No murmurs, Irregular Rate, No rub noted, No Gallop, Tachycardic Abdomen: Bowel Sounds Present, Soft, Non Tender, Non-Distended Extremities: No clubbing, No cyanosis, No edema, Capillary Refill Less than 3 Seconds Skin: No rashes, No breakdown Musculoskeletal: No Tenderness to Palpation of Joints or Extremities Lymphatic: No Cervical, Supraclavicular, or Inguinal Adenopathy Neurological: Cranial nerves II-XII grossly intact, Neuro grossly intact, Motor Exam 5/5 strength throughout Psych/Mental Status: Appropriate, Anxious Microbiology Past 72 Hours 03/19/19 01:15 Mucosa - Nose Influenza Types A,B Direct FA (ELIZABETH) - Final Laboratory Results 03/18/19 20:12: WBC 7.9, RBC 4.33 L, Hgb 12.7 L, Hct 37.9 L, MCV 87.5, MCH 29.3, MCHC 33.5, RDW Std Deviation 41.6, RDW Coeff of Ye 13.0, Plt Count 242, MPV 10.1, Immature Gran % (Auto) 2.300 H, Neut % (Auto) 76.6 H, Lymph % (Auto) 11.2 L, Jack % (Auto) 9.3, Eos % (Auto) 0.3, Baso % (Auto) 0.3, Absolute Neuts (auto) 6.1, Absolute Lymphs (auto) 0.88, Nucleated RBC % 0 03/18/19 20:12: Sodium 142, Potassium 4.0, Chloride 109 H, Carbon Dioxide 26.0, Anion Gap 7, BUN 19 H, Creatinine 1.03, Estim Creat Clear Calc 51.62, Est GFR (MDRD) Af Amer 89, Est GFR (MDRD) Non-Af 74, BUN/Creatinine Ratio 18.4, Glucose 167 H, Calcium 8.7, Troponin I < 0.015 03/18/19 20:12: Lactic Acid 3.2 H* 03/19/19 00:30: Digoxin 0.83, Theophylline 7.0 L 03/19/19 00:30: Lactic Acid 2.3 H* 03/19/19 01:04: POC Glucose 192 H 03/19/19 04:27: Sodium 143, Potassium 4.0, Chloride 111 H, Carbon Dioxide 27.0, Anion Gap 5, BUN 16, Creatinine 1.00, Estim Creat Clear Calc 51.25, Est GFR (MDRD) Af Amer 92, Est GFR (MDRD) Non-Af 76, BUN/Creatinine Ratio 16.0, Glucose 215 H, Calcium 8.0 L, Total Bilirubin 0.30, AST 9 L, ALT 18, Alkaline Phosphatase 75, Total Protein 6.0 L, Albumin 3.4, Globulin 2.6, Albumin/Globulin Ratio 1.3 03/19/19 04:27: WBC 5.9, RBC 4.02 L, Hgb 11.7 L, Hct 35.2 L, MCV 87.6, MCH 29.1, MCHC 33.2, RDW Std Deviation 43.0, RDW Coeff of Ye 13.4, Plt Count 212, MPV 10.7, Immature Gran % (Auto) 1.900 H, Neut % (Auto) 91.1 H, Lymph % (Auto) 5.3 L , Jack % (Auto) 1.7, Eos % (Auto) 0.0, Baso % (Auto) 0.0, Absolute Neuts (auto) 5.4, Absolute Lymphs (auto) 0.31 L, Nucleated RBC % 0, Differential Comment Current Medications Albuterol/Ipratropium (Duoneb) 3 ml INHALATION Q4H.RT JENNIFER Last Admin: 03/19/19 05:56 Dose: 3 ml Documented by: Aspirin (Aspirin, Baby) 81 mg PO DAILY@0800 [facility] Clopidogrel Bisulfate (Plavix) 75 mg PO DAILY [facility] Digoxin (Lanoxin) 125 mcg PO DAILY [facility] Doxazosin Mesylate (Cardura) 4 mg PO QHS [facility] Last Admin: 03/19/19 00:56 Dose: Not Given Documented by: Enoxaparin Sodium (Lovenox) 40 mg SC DAILY@0600 [facility] Last Admin: 03/19/19 06:47 Dose: 40 mg Documented by: Finasteride (Proscar) 5 mg PO DAILY [facility] Guaifenesin (Mucinex) 1,200 mg PO BID [facility] Last Admin: 03/19/19 00:56 Dose: Not Given Documented by: Sodium Chloride () 500 mls @ 999 mls/hr IV .Q31M ONE Last Infusion: 03/18/19 21:08 Dose: Infused Documented by: Piperacillin Sod/Tazobactam (Sod 3.375 gm/ Sodium Chloride) 50 mls @ 12.5 mls/hr IV Q8 [facility] Last Admin: 03/19/19 06:41 Dose: 12.5 mls/hr Documented by: Azithromycin 500 mg/ Dextrose 255 mls @ 250 mls/hr IV Q24@2200 [facility] Stop: 03/20/19 23:02 Last Infusion: 03/19/19 03:05 Dose: Infused Documented by: Lactated Ringer's () 1,000 mls @ 50 mls/hr IV .Q20H [facility] Last Infusion: 03/19/19 06:00 Dose: 50 mls/hr Documented by: Sodium Chloride () 250 mls @ 15 mls/hr IV .[id number] PRN PRN Reason: Saline Flush Insulin Human Lispro (Humalog Kwikpen (Bkc)) 0 unit SC ACHS [facility]; Protocol Lorazepam (Ativan) 1 mg PO BID PRN PRN PRN Reason: ANXIETY Losartan Potassium (Cozaar) 12.5 mg PO DAILY [facility] Magnesium Citrate (Citrate Of Magnesia) 300 ml PO X1 [facility] Last Admin: 03/19/19 00:56 Dose: Not Given Documented by: Methylprednisolone (Solu-Medrol) 40 mg IV Q8 [facility] Last Admin: 03/19/19 06:45 Dose: 40 mg Documented by: Mirtazapine (Remeron) 30 mg PO QHS [facility] Last Admin: 03/19/19 00:56 Dose: Not Given Documented by: Nitroglycerin (Nitrostat) 0.4 mg SUBLINGUAL Q5M PRN PRN Reason: Chest Pain Ondansetron HCl (Zofran) 4 mg IV Q8H PRN PRN PRN Reason: Nausea Pantoprazole Sodium (Protonix) 20 mg PO DAILY [facility] Polyethylene Glycol (Miralax) 17 gm PO DAILY PRN PRN Reason: Constipation Prednisolone Acetate (Pred Forte Eye Drops (5 Ml)) 1 drop RIGHT EYE 4X/DAY PRN PRN PRN Reason: Dry Eye Primidone (Mysoline) 50 mg PO BID JENNIFER Last Admin: 03/19/19 00:56 Dose: Not Given Documented by: Sodium Chloride () 10 - 40 ml IV UD PRN PRN Reason: SALINE FLUSH Last Admin: 03/19/19 06:45 Dose: 20 ml Documented by: Clinical Impression(s) from Imaging Studies Chest X-Ray 03/18/19 20:14 IMPRESSION: Stable chest with no acute superimposed finding. Electronically Signed: Ramone Valenzuela MD at 21:13 EST , Service support , Chest X-Ray 03/19/19 04:15 IMPRESSION: Stable emphysema.. at 0512 Reported and signed by: Melecio Palomino MD Electronically Signed: Melecio Palomino MD at 5:11 EST Tel , Service support , Assessment/Plan Active and Suspected Problems (Last Reviewed 03/18/19 @ 21:59 by Kirti Solomon DO) Acute respiratory failure with hypoxemia (Acute) Respiratory distress (Acute) RECOMMENDATIONS: 1. Discontinue theophylline 2. In addition to IV steroids 40 mg IV every 6 3. Obtain sputum culture 4. Likely okay to hold on repeat viral panel 5. Agree with empiric antibiotic therapy until cultures resulted 6. Okay to transfer from the intensive care unit from my perspective IMPRESSIONS: 1. Acute hypercarbic respiratory failure secondary to COPD exacerbation Patient with parainfluenza virus positive previously. Likely not necessary to repeat viral culture. However, superinfection with bacteria cannot be excluded. Agree with empiric antibiotics until sputum culture and blood cultures are resulted. Would discontinue theophylline as this may be contributing to uncontrolled tachycardia. Continue mucolytic and aggressive pulmonary toileting. Patient will be transition to 40 mg IV every 6 of IV steroids 2. CAD status post PCI/sinus tachycardia Patient with significant sinus tachycardia at this time. This may be secondary to theophylline in the setting of bronchodilators and anxiety. Patient is on digoxin at baseline. Could consider evaluation by cardiology. Given wheezing on exam, would recommend calcium channel blockers over beta- blockers to possible. Would not be surprised by a small troponin leak given hypoxia on presentation with noninvasive requirements. Patient recently had a heart catheterization requiring stents, so would not discontinue Plavix or aspirin. 3. History of lung cancer/CKD stage III/CARLIN/GERD/diabetes mellitus/anxiety/advanced age Complicates care, management, recovery and prognosis. Patient is reportedly noncompliant with CPAP therapy at baseline. Renal function appears to be at baseline. Patient will likely require sliding scale insulin secondary to a need for IV steroids. Code Visit Inpatient E&M: 99757 Init Hosp L3
[2019-03-19] MEDS: Aspirin 81 MG TAB.CHEW PO (10:36)
[2019-03-19] MEDS: guaiFENesin 1,200 MG Tablet 1200 MG PO ×2 (10:36→22:02)
[2019-03-19] MEDS: Losartan Potassium 25 MG Tablet 12.5 MG PO (10:36)
[2019-03-19] MEDS: Digoxin 125 MCG Tablet PO (10:37)
[2019-03-19] MEDS: Finasteride 5 MG Tablet PO (10:38)
[2019-03-19] MEDS: Clopidogrel Bisulfate 75 MG Tablet PO (10:38)
[2019-03-19] MEDS: Pantoprazole Sodium 20 MG Tablet PO (10:38)
[2019-03-19] MEDS: Primidone 50 MG Tablet PO ×2 (10:38→22:02)
--- NOTE | 2019-03-19 10:38 | PN_ITS ---
Patient Problems: Active and Suspected Problems (Last Reviewed 03/18/19 @ 21:59 by Kirti Solomon DO) Acute respiratory failure with hypoxemia (Acute) Respiratory distress (Acute) Subjective: Patient seen and examined. He was admitted with a complaint of shortness of breath and has been managed for acute exacerbation of COPD. Patient still complains of feeling short of breath associated wheezing and coughing. He feels like he is not able to expectorate sputum. Review of signs otherwise negative. Labs and vitals reviewed. Patient remains tachycardic. Vitals/I&O's: Vital Signs Temp Pulse Resp BP Pulse Ox 98.1 F 119 H 16 143/76 H 96 03/19/19 04:00 03/19/19 09:40 03/19/19 09:40 03/19/19 06:00 03/19/19 09:40 Oxygen Delivery Method Room Air Weight: 155 lb 15.985 oz Body Mass Index (BMI) 25.9 Intake and Output for Last 24 Hours 03/17/19 03/18/19 03/19/19 23:59 23:59 23:59 Intake Total 1550 / 1550 949.17 / 949.17 Output Total 1675 / 1675 Balance 1550 / 1550 -725.83 / -725.83 General: Alert, Oriented x3, Cooperative, Lethargic HEENT: Atraumatic, PERRLA, EOMI, Normocephalic Oral: Dry Mucosa Neck: Supple, No JVD, Negative Carotid Bruits Lungs: - - coarse wheezing nad rhonchi in all lung arteaga; on room air. Cardiovascular: Regular rate, Normal S1, Normal S2, No murmurs, Tachycardic Abdomen: Bowel Sounds Present, Soft, Non Tender Extremities: No clubbing, No cyanosis, No edema, Capillary Refill Less than 3 Seconds Skin: No rashes, No breakdown Musculoskeletal: No Tenderness to Palpation of Joints or Extremities Lymphatic: No Cervical, Supraclavicular, or Inguinal Adenopathy Neurological: Cranial nerves II-XII grossly intact, Neuro grossly intact, Motor Exam 5/5 strength throughout Psych/Mental Status: Normal Affect, Appropriate, Alert and oriented to time, place, person, mood and affect Microbiology Past 72 Hours 03/19/19 01:15 Mucosa - Nose Influenza Types A,B Direct FA ([facility]) - Final Laboratory Results 03/18/19 20:12: WBC 7.9, RBC 4.33 L, Hgb 12.7 L, Hct 37.9 L, MCV 87.5, MCH 29.3, MCHC 33.5, RDW Std Deviation 41.6, RDW Coeff of Ye 13.0, Plt Count 242, MPV 10.1, Immature Gran % (Auto) 2.300 H, Neut % (Auto) 76.6 H, Lymph % (Auto) 11.2 L, [place] % (Auto) 9.3, Eos % (Auto) 0.3, Baso % (Auto) 0.3, Absolute Neuts (auto) 6.1, Absolute Lymphs (auto) 0.88, Nucleated RBC % 0 03/18/19 20:12: Sodium 142, Potassium 4.0, Chloride 109 H, Carbon Dioxide 26.0, Anion Gap 7, BUN 19 H, Creatinine 1.03, Estim Creat Clear Calc 51.62, Est GFR (MDRD) Af Amer 89, Est GFR (MDRD) Non-Af 74, BUN/Creatinine Ratio 18.4, Glucose 167 H, Calcium 8.7, Troponin I < 0.015 03/18/19 20:12: Lactic Acid 3.2 H* 03/19/19 00:30: Digoxin 0.83, Theophylline 7.0 L 03/19/19 00:30: Lactic Acid 2.3 H* 03/19/19 01:04: POC Glucose 192 H 03/19/19 04:27: Sodium 143, Potassium 4.0, Chloride 111 H, Carbon Dioxide 27.0, Anion Gap 5, BUN 16, Creatinine 1.00, Estim Creat Clear Calc 51.25, Est GFR (MDRD) Af Amer 92, Est GFR (MDRD) Non-Af 76, BUN/Creatinine Ratio 16.0, Glucose 215 H, Calcium 8.0 L, Total Bilirubin 0.30, AST 9 L, ALT 18, Alkaline Phosphatase 75, Total Protein 6.0 L, Albumin 3.4, Globulin 2.6, Albumin/Globulin Ratio 1.3 03/19/19 04:27: WBC 5.9, RBC 4.02 L, Hgb 11.7 L, Hct 35.2 L, MCV 87.6, MCH 29.1, MCHC 33.2, RDW Std Deviation 43.0, RDW Coeff of Ye 13.4, Plt Count 212, MPV 10.7, Immature Gran % (Auto) 1.900 H, Neut % (Auto) 91.1 H, Lymph % (Auto) 5.3 L , [place] % (Auto) 1.7, Eos % (Auto) 0.0, Baso % (Auto) 0.0, Absolute Neuts (auto) 5.4, Absolute Lymphs (auto) 0.31 L, Nucleated RBC % 0, Differential Comment Diagnostic Data Chest X-Ray 03/19/19 04:15 IMPRESSION: Stable emphysema.. at 0512 Reported and signed by: Melecio Palomino MD Electronically Signed: Melecio Palomino MD at 5:11 EST Tel , Service support , Current Medications Albuterol/Ipratropium (Duoneb) 3 ml INHALATION Q4H.RT [facility] Last Admin: 03/19/19 09:39 Dose: 3 ml Documented by: Aspirin (Aspirin, Baby) 81 mg PO DAILY@0800 [facility] Clopidogrel Bisulfate (Plavix) 75 mg PO DAILY [facility] Digoxin (Lanoxin) 125 mcg PO DAILY [facility] Doxazosin Mesylate (Cardura) 4 mg PO QHS [facility] Last Admin: 03/19/19 00:56 Dose: Not Given Documented by: Enoxaparin Sodium (Lovenox) 40 mg SC DAILY@0600 [facility] Last Admin: 03/19/19 06:47 Dose: 40 mg Documented by: Finasteride (Proscar) 5 mg PO DAILY [facility] Guaifenesin (Mucinex) 1,200 mg PO BID [facility] Last Admin: 03/19/19 00:56 Dose: Not Given Documented by: Sodium Chloride () 500 mls @ 999 mls/hr IV .Q31M ONE Last Infusion: 03/18/19 21:08 Dose: Infused Documented by: Piperacillin Sod/Tazobactam (Sod 3.375 gm/ Sodium Chloride) 50 mls @ 12.5 mls/hr IV Q8 [facility] Last Admin: 03/19/19 06:41 Dose: 12.5 mls/hr Documented by: Azithromycin 500 mg/ Dextrose 255 mls @ 250 mls/hr IV Q24@2200 [facility] Stop: 03/20/19 23:02 Last Infusion: 03/19/19 03:05 Dose: Infused Documented by: Lactated Ringer's () 1,000 mls @ 50 mls/hr IV .Q20H [facility] Last Infusion: 03/19/19 06:00 Dose: 50 mls/hr Documented by: Sodium Chloride () 250 mls @ 15 mls/hr IV .[id number] PRN PRN Reason: Saline Flush Insulin Human Lispro (Humalog Kwikpen (Bkc)) 0 unit SC ACHS [facility]; Protocol Lorazepam (Ativan) 1 mg PO BID PRN PRN PRN Reason: ANXIETY Losartan Potassium (Cozaar) 12.5 mg PO DAILY [facility] Magnesium Citrate (Citrate Of Magnesia) 300 ml PO X1 [facility] Last Admin: 03/19/19 00:56 Dose: Not Given Documented by: Methylprednisolone (Solu-Medrol) 40 mg IV Q6 [facility] Mirtazapine (Remeron) 30 mg PO QHS [facility] Last Admin: 03/19/19 00:56 Dose: Not Given Documented by: Nitroglycerin (Nitrostat) 0.4 mg SUBLINGUAL Q5M PRN PRN Reason: Chest Pain Ondansetron HCl (Zofran) 4 mg IV Q8H PRN PRN PRN Reason: Nausea Pantoprazole Sodium (Protonix) 20 mg PO DAILY [facility] Polyethylene Glycol (Miralax) 17 gm PO DAILY PRN PRN Reason: Constipation Prednisolone Acetate (Pred Forte Eye Drops (5 Ml)) 1 drop RIGHT EYE 4X/DAY PRN PRN PRN Reason: Dry Eye Primidone (Mysoline) 50 mg PO BID [facility] Last Admin: 03/19/19 00:56 Dose: Not Given Documented by: Sodium Chloride () 10 - 40 ml IV UD PRN PRN Reason: SALINE FLUSH Last Admin: 03/19/19 06:45 Dose: 20 ml Documented by: STROKE Vital Signs/Narrative: Vital Signs Pulse Resp Pulse Ox 03/19/19 09:40 119 H 16 96 Medical Necessity - Tobacco Use Smoking Status: Former smoker Assessment/Plan All Active Problems (Last Reviewed 03/18/19 @ 21:59 by Kirti Juanito, DO) Acute respiratory failure with hypoxemia (Acute) Respiratory distress (Acute) Chest pain (Acute) Normochromic normocytic anemia (Acute) Abnormal stress test (Acute) COPD (chronic obstructive pulmonary disease) (Acute) 1. Acute hypercapnic respiratory failure due to COPD exacerbation * required BIPAP overnight. Was on room air at time of review * still remains tachycardic, but not tachypneic * on IV solumedrol 40mg q6hrs * on IV azithromycin and zosyn * blood and sputum cultures pending * CXR shows hyperexpansion but no infiltrate * continue mucolytics; aggressive pulmonary toileting and breathing treatments * respiratory panel pending * CXR today showed stable ephysema 2. Lactic acidosis: lactic acid was 3.2; trended down to 2.3 with hydration. WIll monitor 3. CAD s/p stents * On aspirin and Plavix as well as statin. * 4. Sinus tachycardia: HR may be due to theophylline. theophylline discontinued per pulmonology 5. History of lung cancer: stable 6. Type 2 diabetes mellitus: well controlled with diet. now on ISS. on steroids for now, which will cause high blood sugars 7. GERD: on PPI 8. Anxiety: On Remeron. History of A. fib: On digoxin. * DVT prophylaxis: Lovenox. Code Visit Inpatient E&M: 19242 [facility] Hosp L3
[2019-03-19] MEDS: LORazepam 1 MG Tablet PO ×2 (10:47→20:01)
[2019-03-19 13:06] LABS: Bedside Glucose 242 mg/dL (70-110)
[2019-03-19 16:40] LABS: Bedside Glucose 130 mg/dL (70-110)
[2019-03-19] MEDS: Mirtazapine 30 MG Tablet PO (22:03)
[2019-03-19] MEDS: Doxazosin 4 MG Tablet PO (22:03)
[2019-03-19 22:11] LABS: Bedside Glucose 165 mg/dL (70-110)
[2019-03-20] VITALS (18 sets, daily range): BP systolic 127–154; BP diastolic 65–72; PULSE 14–131; RESP 12–22; TEMP 35.9–36.6; O2SAT 94–98
[2019-03-20] MEDS: 0.9% Saline Lock 10 ML Syringe IV ×2 (00:10→05:45)
[2019-03-20] MEDS: Ipratropium/Albuterol Sulfate 3 ML AMPUL.NEB INHALATION ×7 (00:15→22:10)
--- NOTE | 2019-03-20 01:30 | CPS ---
pt unable to tolerate Bipap
[2019-03-20] MEDS: Enoxaparin 40 MG/0.4 ML Syringe SC (05:45)
[2019-03-20 06:21] LABS: Absolute Lymphocyte Count 0.48 X10^3/uL (0.83-4.51); Absolute Neutrophil Count 6.8 X10^3/uL (2.0-7.7); Basophil# 0.01 X10^3/uL; Basophil% 0.1 % (0-1); Hemoglobin 11.9 g/dL (13.0-16.5); Lymphocyte # 0.48 X10^3/ul (4.0); Lymphocyte % 6.2 % (19-41); Mean Corp Hgb Conc 33.1 g/dL (32-36); Mean Corpuscular Volume 87.8 fL (80-94); Mean Platelet Vol. 10.5 fl (6.2-12.0); Monocyte# 0.38 X10^3/uL; Monocyte% 4.9 % (0-10); NRBC Flagged by Analyzer 0 % (0-5); Neutrophil # 6.77 X10^3/uL (2.7-7.7); Neutrophil % 87.5 % (47-70); POSITIVE DIFFERENTIAL YES; Platelet Count 222 K/mm3 (150-450); RBC Distribution Width CV 13.6 % (11.6-14.6); RBC Distribution Width SD 43.4 fl (35.1-43.9); White Blood Count 7.7 K/mm3 (4.4-11.0)
[2019-03-20 06:27] LABS: Differential Indicated SCAN CRITERIA MET
[2019-03-20 06:39] LABS: Anion Gap 3 (5-15); BUN 15 mg/dL (7-18); BUN/Creat Ratio 16.4 RATIO (10-20); Chloride 109 mmol/L (98-107); Creatinine, Serum 0.92 mg/dL (0.70-1.30); EST Glomerular Filtration Rate 84 mL/min (>60); Est Glom Filt Rate - Afr Amer 102 mL/min (>60); Estimated Creatinine Clearance 55.71 ml/min; Glucose 180 mg/dL (74-106); Sodium Level 140 mmol/L (136-145)
[2019-03-20] MEDS: Insulin Lispro 100 UNIT/ML INSULN.PEN SC ×3 (07:02→21:20)
[2019-03-20 07:05] LABS: Bedside Glucose 163 mg/dL (70-110)
[2019-03-20 07:07] LABS: Differential Comment SCANNED
[2019-03-20] MEDS: Primidone 50 MG Tablet PO ×2 (09:32→21:20)
[2019-03-20] MEDS: Digoxin 125 MCG Tablet PO (09:32)
[2019-03-20] MEDS: Aspirin 81 MG TAB.CHEW PO (09:33)
[2019-03-20] MEDS: Clopidogrel Bisulfate 75 MG Tablet PO (09:33)
[2019-03-20] MEDS: guaiFENesin 1,200 MG Tablet 1200 MG PO ×2 (09:33→21:19)
[2019-03-20] MEDS: Finasteride 5 MG Tablet PO (09:33)
[2019-03-20] MEDS: Pantoprazole Sodium 20 MG Tablet PO (09:33)
[2019-03-20] MEDS: Losartan Potassium 25 MG Tablet 12.5 MG PO (09:33)
--- NOTE | 2019-03-20 10:40 | NURSING ---
PT NOTED TO BE TACHYCARDIC ON TELE MONITOR- PT EVALUATED- STATES HE JUST FINISHED BREATHING TX, USED PEP THERAPY AND HAD A COUGHING SPELL. STATES HE WAS INCONTINENT OF URINE D/T COUGHING SPELL. HYGIENE CARE PROVIDED BY [facility]- PT ASSISTED TO CHAIR. WILL CONT TO MONITOR HR.
--- NOTE | 2019-03-20 11:08 | PN_ITS ---
Patient Problems: Active and Suspected Problems (Last Reviewed 03/18/19 @ 21:59 by Kirti Solomon DO) Acute respiratory failure with hypoxemia (Acute) Respiratory distress (Acute) Subjective: Patient seen and examined. He complains of not feeling well, and says he is still short of breath and wheezing. He denies any chest pain, fever or chills, palpitations, dizziness, diarrhea or vomiting. Review of symptoms otherwise negative. Labs and vitals reviewed. Vitals/I&O's: Vital Signs Temp Pulse Resp BP Pulse Ox 96.8 F L 14 L 22 H 127/65 H 95 03/20/19 09:15 03/20/19 10:02 03/20/19 10:02 03/20/19 09:15 03/20/19 09:15 Oxygen Delivery Method Room Air Weight: 159 lb 6.307 oz Body Mass Index (BMI) 25.9 Intake and Output for Last 24 Hours 03/18/19 03/19/19 03/20/19 23:59 23:59 23:59 Intake Total 1550 / 1550 3367.50 / 3367.50 75.00 / 75.00 Output Total 3125 / 3125 275 / 275 Balance 1550 / 1550 242.50 / 242.50 -200.00 / -200.00 General: Alert, Oriented x3, Cooperative, anxious HEENT: Atraumatic, PERRLA, EOMI, Normocephalic Oral: Dry Mucosa Neck: Supple, No JVD, Negative Carotid Bruits Lungs: - - mild wheezing and rhonchi in all lung arteaga; on room air. Cardiovascular: Regular rate, Normal S1, Normal S2, No murmurs, Tachycardic Abdomen: Bowel Sounds Present, Soft, Non Tender Extremities: No clubbing, No cyanosis, No edema, Capillary Refill Less than 3 Seconds Skin: No rashes, No breakdown Musculoskeletal: No Tenderness to Palpation of Joints or Extremities Lymphatic: No Cervical, Supraclavicular, or Inguinal Adenopathy Neurological: Cranial nerves II-XII grossly intact, Neuro grossly intact, Motor Exam 5/5 strength throughout Psych/Mental Status: looks anxious, Alert and oriented to time, place, person Microbiology Past 72 Hours 03/19/19 01:15 Mucosa - Nose Respiratory Panel (PCR) - Final Parainfluenza 1 03/19/19 01:15 Mucosa - Nose Influenza Types A,B Direct FA ([facility]) - Final Laboratory Results 03/19/19 12:52: POC Glucose 242 H 03/19/19 16:01: POC Glucose 130 H 03/19/19 21:51: POC Glucose 165 H 03/20/19 05:42: WBC 7.7, RBC 4.10 L, Hgb 11.9 L, Hct 36.0 L, MCV 87.8, MCH 29.0, MCHC 33.1, RDW Std Deviation 43.4, RDW Coeff of Ye 13.6, Plt Count 222, MPV 10.5, Immature Gran % (Auto) 1.300 H, Neut % (Auto) 87.5 H, Lymph % (Auto) 6.2 L , [place] % (Auto) 4.9, Eos % (Auto) 0.0, Baso % (Auto) 0.1, Absolute Neuts (auto) 6.8, Absolute Lymphs (auto) 0.48 L, Nucleated RBC % 0, Differential Comment SCANNED 03/20/19 05:42: Sodium 140, Potassium 4.0, Chloride 109 H, Carbon Dioxide 28.0, Anion Gap 3 L, BUN 15, Creatinine 0.92, Estim Creat Clear Calc 55.71, Est GFR (MDRD) Af Amer 102, Est GFR (MDRD) Non-Af 84, BUN/Creatinine Ratio 16.4, Glucose 180 H, Calcium 8.0 L 03/20/19 07:01: POC Glucose 163 H Diagnostic Data Chest X-Ray 03/19/19 04:15 IMPRESSION: Stable emphysema.. at 0512 Reported and signed by: Melecio Palomino MD Electronically Signed: Melecio Palomino MD at 5:11 EST Tel , Service support , Current Medications Albuterol Sulfate (Ventolin Aerosols) 2.5 mg INHALATION Q2H PRN PRN PRN Reason: SOB &/OR WHEEZING Albuterol/Ipratropium (Duoneb) 3 ml INHALATION Q4H.RT [facility] Last Admin: 03/20/19 10:03 Dose: 3 ml Documented by: Aspirin (Aspirin, Baby) 81 mg PO DAILY@0800 [facility] Last Admin: 03/20/19 09:33 Dose: 81 mg Documented by: Clopidogrel Bisulfate (Plavix) 75 mg PO DAILY [facility] Last Admin: 03/20/19 09:33 Dose: 75 mg Documented by: Digoxin (Lanoxin) 125 mcg PO DAILY [facility] Last Admin: 03/20/19 09:32 Dose: 125 mcg Documented by: Doxazosin Mesylate (Cardura) 4 mg PO QHS [facility] Last Admin: 03/19/19 22:03 Dose: 4 mg Documented by: Enoxaparin Sodium (Lovenox) 40 mg SC DAILY@0600 [facility] Last Admin: 03/20/19 05:45 Dose: 40 mg Documented by: Finasteride (Proscar) 5 mg PO DAILY [facility] Last Admin: 03/20/19 09:33 Dose: 5 mg Documented by: Guaifenesin (Mucinex) 1,200 mg PO BID [facility] Last Admin: 03/20/19 09:33 Dose: 1,200 mg Documented by: Sodium Chloride () 500 mls @ 999 mls/hr IV .Q31M ONE Last Infusion: 03/18/19 21:08 Dose: Infused Documented by: Piperacillin Sod/Tazobactam (Sod 3.375 gm/ Sodium Chloride) 50 mls @ 12.5 mls/hr IV Q8 [facility] Last Infusion: 03/20/19 10:50 Dose: Infused Documented by: Azithromycin 500 mg/ Dextrose 255 mls @ 250 mls/hr IV Q24@2200 [facility] Stop: 03/20/19 23:02 Last Infusion: 03/19/19 22:53 Dose: Infused Documented by: Lactated Ringer's () 1,000 mls @ 50 mls/hr IV .Q20H [facility] Last Infusion: 03/19/19 23:59 Dose: 50 mls/hr Documented by: Sodium Chloride () 250 mls @ 15 mls/hr IV .[id number] PRN PRN Reason: Saline Flush Last Infusion: 03/20/19 05:46 Dose: 0 mls/hr Documented by: Insulin Human Lispro (Humalog Kwikpen (Bkc)) 0 unit SC ACHS [facility]; Protocol Last Admin: 03/20/19 07:02 Dose: 1 units Documented by: Lorazepam (Ativan) 1 mg PO BID PRN PRN PRN Reason: ANXIETY Last Admin: 03/19/19 20:01 Dose: 1 mg Documented by: Losartan Potassium (Cozaar) 12.5 mg PO DAILY [facility] Last Admin: 03/20/19 09:33 Dose: 12.5 mg Documented by: Magnesium Citrate (Citrate Of Magnesia) 300 ml PO X1 [facility] Last Admin: 03/19/19 23:45 Dose: Not Given Documented by: Methylprednisolone (Solu-Medrol) 40 mg IV Q6 [facility] Last Admin: 03/20/19 05:46 Dose: 40 mg Documented by: Mirtazapine (Remeron) 30 mg PO QHS [facility] Last Admin: 03/19/19 22:03 Dose: 30 mg Documented by: Nitroglycerin (Nitrostat) 0.4 mg SUBLINGUAL Q5M PRN PRN Reason: Chest Pain Ondansetron HCl (Zofran) 4 mg IV Q8H PRN PRN PRN Reason: Nausea Pantoprazole Sodium (Protonix) 20 mg PO DAILY [facility] Last Admin: 03/20/19 09:33 Dose: 20 mg Documented by: Polyethylene Glycol (Miralax) 17 gm PO DAILY PRN PRN Reason: Constipation Prednisolone Acetate (Pred Forte Eye Drops (5 Ml)) 1 drop RIGHT EYE 4X/DAY PRN PRN PRN Reason: Dry Eye Primidone (Mysoline) 50 mg PO BID [facility] Last Admin: 03/20/19 09:32 Dose: 50 mg Documented by: Sodium Chloride () 10 - 40 ml IV UD PRN PRN Reason: SALINE FLUSH Last Admin: 03/20/19 05:45 Dose: 20 ml Documented by: STROKE Vital Signs/Narrative: Vital Signs Temp Pulse Resp BP Pulse Ox 03/20/19 10:02 14 L 22 H 03/20/19 09:32 117 H 03/20/19 09:15 96.8 F L 117 H 20 H 127/65 H 95 Medical Necessity - Tobacco Use Smoking Status: Former smoker Assessment/Plan All Active Problems (Last Reviewed 03/18/19 @ 21:59 by Kirti Solomon DO) Acute respiratory failure with hypoxemia (Acute) Respiratory distress (Acute) Chest pain (Acute) Normochromic normocytic anemia (Acute) Abnormal stress test (Acute) COPD (chronic obstructive pulmonary disease) (Acute) 1. Acute hypercapnic respiratory failure due to COPD exacerbation * still requiring bipap at night. * still tachycardic; on room air at time of review. * on breathing treatments with duonebs and prn breathing treatments wtih albuterol * on IV azithromycin and zosyn * on IV solumedrol 40mg q6 * respiratroy panel positive for parainfluenza 1 virus. * blood cultures still pending. * continue mucolytics; aggressive pulmonary toileting and breathing treatments * will consult patient's primary dermatologist and dermatopathologist, Dr Hernandes, today. 2. Lactic acidosis: resolved. 3. CAD s/p stents * On aspirin and Plavix as well as statin. * 4. Sinus tachycardia: * HR may be due to theophylline. theophylline discontinued per pulmonology. * Still remains mildly tachycardic. * Albuterol may also be contributing; however, due to patient's shortness of breath, I cannot discontinue albuterol. Will monitor 5. History of lung cancer: stable 6. Type 2 diabetes mellitus: well controlled with diet. now on ISS. accuchecks ACHS. 7. GERD: on PPI 8. Anxiety and depression: On Remeron. History of A. fib: On digoxin. * DVT prophylaxis: Lovenox. Code Visit Inpatient E&M: 71040 Subs Hosp L2
[2019-03-20 12:01] LABS: Bedside Glucose 139 mg/dL (70-110)
--- NOTE | 2019-03-20 14:00 | CASEMGMT ---
Readmission chart review: Pt initially admitted 03/13-03/15/19 with COPD, parainfluenza. Pt is not on home oxygen but does have cpap but is not always compliant and Dr. Hernandes states is going to try and change pt to bipap when f/u. Pt declined HHC/CCN and palliative referral at that time. Pt stated 'If I get SOB, I will just come back.' Pt then returned 03/18/19 for the same diagnosis. Pt states SOB with any exertion and c/o weakness d/t not being able to walk much d/t SOB. Pt states in rounds that he is considering switching pulmonologists but needs to talk to his . Pt also has some intermittent tachycardia which Dr. Hallman believes that is from the theophylline that the pt has been on for end stage COPD. CM to follow PT/OT and for any further discharge planning/needs. Vani BLACK CM
[2019-03-20] MEDS: Lactated Ringers 1,000 ML 50 ML IV (16:20)
[2019-03-20] MEDS: LORazepam 1 MG Tablet PO (16:23)
[2019-03-20 16:46] LABS: Bedside Glucose 171 mg/dL (70-110)
[2019-03-20] MEDS: Mirtazapine 30 MG Tablet PO (21:20)
[2019-03-20] MEDS: Doxazosin 4 MG Tablet PO (21:20)
[2019-03-20 21:25] LABS: Bedside Glucose 164 mg/dL (70-110)
[2019-03-21] VITALS (18 sets, daily range): BP systolic 149–169; BP diastolic 70–85; PULSE 101–117; RESP 12–22; TEMP 36.2–37; O2SAT 90–98
[2019-03-21] MEDS: 0.9% Saline Lock 10 ML Syringe IV ×4 (00:19→23:37)
[2019-03-21] MEDS: LORazepam 1 MG Tablet PO ×2 (03:25→23:41)
[2019-03-21] MEDS: Ipratropium/Albuterol Sulfate 3 ML AMPUL.NEB INHALATION ×6 (03:27→22:25)
[2019-03-21] MEDS: Enoxaparin 40 MG/0.4 ML Syringe SC (06:16)
[2019-03-21] MEDS: Insulin Lispro 100 UNIT/ML INSULN.PEN SC ×4 (06:37→23:44)
[2019-03-21 06:46] LABS: Bedside Glucose 180 mg/dL (70-110)
[2019-03-21 06:56] LABS: Absolute Lymphocyte Count 0.46 X10^3/uL (0.83-4.51); Absolute Neutrophil Count 6.5 X10^3/uL (2.0-7.7); Basophil# 0.01 X10^3/uL; Basophil% 0.1 % (0-1); Hematocrit 37.2 % (40-54); Lymphocyte # 0.46 X10^3/ul (4.0); Lymphocyte % 6.2 % (19-41); Mean Corp Hgb Conc 32.3 g/dL (32-36); Mean Corpuscular Hgb 28.4 pg (27.0-32.0); Mean Corpuscular Volume 87.9 fL (80-94); Mean Platelet Vol. 10.1 fl (6.2-12.0); Monocyte# 0.43 X10^3/uL; Monocyte% 5.8 % (0-10); NRBC Flagged by Analyzer 0 % (0-5); Neutrophil # 6.46 X10^3/uL (2.7-7.7); Neutrophil % 86.6 % (47-70); POSITIVE DIFFERENTIAL YES; Platelet Count 235 K/mm3 (150-450); RBC Distribution Width CV 13.7 % (11.6-14.6); RBC Distribution Width SD 44.2 fl (35.1-43.9); Red Blood Count 4.23 M/mm3 (4.6-6.2); White Blood Count 7.5 K/mm3 (4.4-11.0)
[2019-03-21 07:17] LABS: Anion Gap 3 (5-15); BUN 19 mg/dL (7-18); BUN/Creat Ratio 19.7 RATIO (10-20); Calcium,Total 7.8 mg/dL (8.5-10.1); Chloride 109 mmol/L (98-107); Creatinine, Serum 0.96 mg/dL (0.70-1.30); EST Glomerular Filtration Rate 80 mL/min (>60); Est Glom Filt Rate - Afr Amer 96 mL/min (>60); Estimated Creatinine Clearance 53.39 ml/min; Glucose 185 mg/dL (74-106); Potassium 4.1 mmol/L (3.5-5.1); Sodium Level 141 mmol/L (136-145)
[2019-03-21 07:22] LABS: Differential Indicated SCAN CRITERIA MET
[2019-03-21 07:46] LABS: Platelet Estimate ADEQUATE (ADEQ); Red Cell Morphology NORM C+C NORMAL (NORM C&C)
[2019-03-21] MEDS: Digoxin 125 MCG Tablet PO (09:47)
[2019-03-21] MEDS: Clopidogrel Bisulfate 75 MG Tablet PO (09:48)
[2019-03-21] MEDS: Finasteride 5 MG Tablet PO (09:48)
[2019-03-21] MEDS: Primidone 50 MG Tablet PO ×2 (09:48→23:27)
[2019-03-21] MEDS: Aspirin 81 MG TAB.CHEW PO (09:48)
[2019-03-21] MEDS: guaiFENesin 1,200 MG Tablet 1200 MG PO ×2 (09:48→23:27)
[2019-03-21] MEDS: Pantoprazole Sodium 20 MG Tablet PO (09:48)
[2019-03-21] MEDS: Losartan Potassium 25 MG Tablet 12.5 MG PO (09:59)
[2019-03-21] MEDS: Lactated Ringers 1,000 ML 50 ML IV (12:49)
--- NOTE | 2019-03-21 13:59 | PN_ITS ---
Patient Problems: Active and Suspected Problems (Last Reviewed 03/18/19 @ 21:59 by Kirti Solomon DO) Acute respiratory failure with hypoxemia (Acute) Respiratory distress (Acute) Subjective: Patient seen and examined. He states he does not feel well today and feels like his lungs are very tight he is more short of breath. He still coughing but it is dry. He denies any palpitations, dizziness, abdominal pain, diarrhea vomiting. Review of systems otherwise negative. I discussed his plan of care with his primary highway patrol officer Dr. Hernandes this morning. Per discussion, Dr. Hernandes suggested that patient be given nebulized morphine 5 mg 3 times daily as needed to help with shortness of breath and to make him more comfortable. 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 Labs and vitals reviewed. Vitals/I&O's: Vital Signs Temp Pulse Resp BP Pulse Ox 97.6 F L 107 H 20 H 159/77 H 94 03/21/19 13:00 03/21/19 13:00 03/21/19 13:00 03/21/19 13:00 03/21/19 13:00 Oxygen Delivery Method Room Air Weight: 162 lb 11.218 oz Body Mass Index (BMI) 25.9 Intake and Output for Last 24 Hours 03/19/19 03/20/19 03/21/19 23:59 23:59 23:59 Intake Total 3367.50 / 3367.50 2402.30 / 2402.30 1022.46 / 1022.46 Output Total 3125 / 3125 1625 / 1625 1175 / 1175 Balance 242.50 / 242.50 777.30 / 777.30 -152.54 / -152.54 General: Alert, Oriented x3, Cooperative, anxious HEENT: Atraumatic, PERRLA, EOMI, Normocephalic Oral: Dry Mucosa Neck: Supple, No JVD, Negative Carotid Bruits Lungs: - - lungs are very tight to auscultation; has moderate wheezing and rhonchi in all lung arteaga. Cardiovascular: Regular rate, Normal S1, Normal S2, No murmurs, Tachycardic Abdomen: Bowel Sounds Present, Soft, Non Tender Extremities: No clubbing, No cyanosis, No edema, Capillary Refill Less than 3 Seconds Skin: No rashes, No breakdown Musculoskeletal: No Tenderness to Palpation of Joints or Extremities Lymphatic: No Cervical, Supraclavicular, or Inguinal Adenopathy Neurological: Cranial nerves II-XII grossly intact, Neuro grossly intact, Motor Exam 5/5 strength throughout Psych/Mental Status: very anxious, Alert and oriented to time, place, person Microbiology Past 72 Hours 03/18/19 20:27 Blood Culture (Wb) #2 - Left Hand Blood Culture - Preliminary No growth in 48 hours. 03/18/19 20:12 Blood Culture (Wb) - Right Forearm Blood Culture - Preliminary No growth in 48 hours. 03/19/19 01:15 Mucosa - Nose Respiratory Panel (PCR) - Final Parainfluenza 1 03/19/19 01:15 Mucosa - Nose Influenza Types A,B Direct FA (ELIZABETH) - Final Laboratory Results 03/20/19 16:38: POC Glucose 171 H 03/20/19 21:15: POC Glucose 164 H 03/21/19 06:15: WBC 7.5, RBC 4.23 L, Hgb 12.0 L, Hct 37.2 L, MCV 87.9, MCH 28.4, MCHC 32.3, RDW Std Deviation 44.2 H, RDW Coeff of Ye 13.7, Plt Count 235, MPV 10.1, Immature Gran % (Auto) 1.300 H, Neut % (Auto) 86.6 H, Lymph % (Auto) 6.2 L , Banner % (Auto) 5.8, Eos % (Auto) 0.0, Baso % (Auto) 0.1, Absolute Neuts (auto) 6.5, Absolute Lymphs (auto) 0.46 L, Nucleated RBC % 0, Platelet Estimate ADEQUATE, RBC Morphology NORM C+C 03/21/19 06:15: Sodium 141, Potassium 4.1, Chloride 109 H, Carbon Dioxide 29.0, Anion Gap 3 L, BUN 19 H, Creatinine 0.96, Estim Creat Clear Calc 53.39, Est GFR (MDRD) Af Amer 96, Est GFR (MDRD) Non-Af 80, BUN/Creatinine Ratio 19.7, Glucose 185 H, Calcium 7.8 L 03/21/19 06:36: POC Glucose 180 H Current Medications Albuterol Sulfate (Ventolin Aerosols) 2.5 mg INHALATION Q2H PRN PRN PRN Reason: SOB &/OR WHEEZING Albuterol/Ipratropium (Duoneb) 3 ml INHALATION Q4H.RT [facility] Last Admin: 03/21/19 11:17 Dose: 3 ml Documented by: Aspirin (Aspirin, Baby) 81 mg PO DAILY@0800 [facility] Last Admin: 03/21/19 09:48 Dose: 81 mg Documented by: Clopidogrel Bisulfate (Plavix) 75 mg PO DAILY [facility] Last Admin: 03/21/19 09:48 Dose: 75 mg Documented by: Digoxin (Lanoxin) 125 mcg PO DAILY [facility] Last Admin: 03/21/19 09:47 Dose: 125 mcg Documented by: Doxazosin Mesylate (Cardura) 4 mg PO QHS [facility] Last Admin: 03/20/19 21:20 Dose: 4 mg Documented by: Enoxaparin Sodium (Lovenox) 40 mg SC DAILY@0600 [facility] Last Admin: 03/21/19 06:16 Dose: 40 mg Documented by: Finasteride (Proscar) 5 mg PO DAILY [facility] Last Admin: 03/21/19 09:48 Dose: 5 mg Documented by: Guaifenesin (Mucinex) 1,200 mg PO BID [facility] Last Admin: 03/21/19 09:48 Dose: 1,200 mg Documented by: Sodium Chloride () 500 mls @ 999 mls/hr IV .Q31M ONE Last Infusion: 03/18/19 21:08 Dose: Infused Documented by: Piperacillin Sod/Tazobactam (Sod 3.375 gm/ Sodium Chloride) 50 mls @ 12.5 mls/hr IV Q8 [facility] Last Infusion: 03/21/19 12:49 Dose: Infused Documented by: Lactated Ringer's () 1,000 mls @ 50 mls/hr IV .Q20H [facility] Last Admin: 03/21/19 12:49 Dose: 50 mls/hr Documented by: Sodium Chloride () 250 mls @ 15 mls/hr IV .[id number] PRN PRN Reason: Saline Flush Last Infusion: 03/21/19 06:15 Dose: 0 mls/hr Documented by: Insulin Human Lispro (Humalog Kwikpen (Bkc)) 0 unit SC ACHS [facility]; Protocol Last Admin: 03/21/19 12:50 Dose: 1 units Documented by: Lorazepam (Ativan) 1 mg PO BID PRN PRN PRN Reason: ANXIETY Last Admin: 03/21/19 03:25 Dose: 1 mg Documented by: Losartan Potassium (Cozaar) 12.5 mg PO DAILY [facility] Last Admin: 03/21/19 09:59 Dose: 12.5 mg Documented by: Magnesium Citrate (Citrate Of Magnesia) 300 ml PO X1 [facility] Last Admin: 03/21/19 00:22 Dose: Not Given Documented by: Methylprednisolone (Solu-Medrol) 40 mg IV Q6 [facility] Last Admin: 03/21/19 12:49 Dose: 40 mg Documented by: Mirtazapine (Remeron) 30 mg PO QHS [facility] Last Admin: 03/20/19 21:20 Dose: 30 mg Documented by: Nitroglycerin (Nitrostat) 0.4 mg SUBLINGUAL Q5M PRN PRN Reason: Chest Pain Ondansetron HCl (Zofran) 4 mg IV Q8H PRN PRN PRN Reason: Nausea Pantoprazole Sodium (Protonix) 20 mg PO DAILY [facility] Last Admin: 03/21/19 09:48 Dose: 20 mg Documented by: Polyethylene Glycol (Miralax) 17 gm PO DAILY PRN PRN Reason: Constipation Prednisolone Acetate (Pred Forte Eye Drops (5 Ml)) 1 drop RIGHT EYE 4X/DAY PRN PRN PRN Reason: Dry Eye Primidone (Mysoline) 50 mg PO BID [facility] Last Admin: 03/21/19 09:48 Dose: 50 mg Documented by: Sodium Chloride () 10 - 40 ml IV UD PRN PRN Reason: SALINE FLUSH Last Admin: 03/21/19 06:16 Dose: 10 ml Documented by: Theophylline (Kevin-Dur) 300 mg PO BID [facility] STROKE Vital Signs/Narrative: Vital Signs Temp Pulse Resp BP Pulse Ox 03/21/19 13:00 97.6 F L 107 H 20 H 159/77 H 94 03/21/19 11:17 108 H 18 90 Medical Necessity - Tobacco Use Smoking Status: Former smoker Assessment/Plan All Active Problems (Last Reviewed 03/18/19 @ 21:59 by Kirti Solomon DO) Acute respiratory failure with hypoxemia (Acute) Respiratory distress (Acute) Chest pain (Acute) Normochromic normocytic anemia (Acute) Abnormal stress test (Acute) COPD (chronic obstructive pulmonary disease) (Acute) 1. Acute hypercapnic respiratory failure due to COPD exacerbation * still tachycardic; on room air * complains of more shortness of breawth today * on breathing treatments with duonebs and prn breathing treatments wtih albuterol * on IV azithromycin and zosyn; will dc today * on IV solumedrol 40mg q6 * respiratroy panel positive for parainfluenza 1 virus. * blood cultures showed no growth * continue mucolytics; aggressive pulmonary toileting and breathing treatments * Discussed patient's plan of care with Dr. Hernandes today-he suggested that we try nebulized morphine 5 mg 3 times daily as needed. I discussed this with pharmacy and according to pharmacist, nebulized morphine is only given if patient is hospice and for end-stage COPD. He also needs a special nebulizer which is also used with pentamidine and that is currently not available. Since patient is not in hospice despite his end-stage COPD, nebulized morphine cannot be given. * Patient also stated that his tachycardia does not bother him and he wants his theophylline restarted. Will resume theophylline 300 mg twice daily. * 2. COPD exacerbation due to parainfluenza infection. As under 1. 3. Lactic acidosis: resolved. 4. CAD s/p stents * On aspirin and Plavix as well as statin. * 5. Sinus tachycardia: * HR may be due to theophylline. theophylline discontinued per pulmonology. * Still remains mildly tachycardic. Patient states tachycardia is not bothering him and so wants theophylline resumed. 5. History of lung cancer: stable 6. Type 2 diabetes mellitus: well controlled with diet. now on ISS. accuchecks ACHS. 7. GERD: on PPI 8. Anxiety and depression: On Remeron. History of A. fib: On digoxin. * DVT prophylaxis: Lovenox. Code Visit Inpatient E&M: 94769 Subs Hosp L2
[2019-03-21 18:06] LABS: Bedside Glucose 176 mg/dL (70-110)
[2019-03-21 18:06] LABS: Bedside Glucose 160 mg/dL (70-110)
[2019-03-21] MEDS: Doxazosin 4 MG Tablet PO (23:27)
[2019-03-21] MEDS: Mirtazapine 30 MG Tablet PO (23:28)
--- NOTE | 2019-03-21 23:59 | CPS ---
BiPAP pressure settings titrated from 14/7 to 12/6; pt. comfort
[2019-03-22] VITALS (18 sets, daily range): BP systolic 111–164; BP diastolic 70–77; PULSE 82–133; RESP 12–24; TEMP 35.8–37.2; O2SAT 91–99
[2019-03-22] LABS: Bedside Glucose 170 mg/dL (70-110)
[2019-03-22] MEDS: Ipratropium/Albuterol Sulfate 3 ML AMPUL.NEB INHALATION ×6 (03:25→23:33)
[2019-03-22] MEDS: Enoxaparin 40 MG/0.4 ML Syringe SC (05:55)
[2019-03-22] MEDS: 0.9% Saline Lock 10 ML Syringe IV ×3 (05:56→17:27)
[2019-03-22] MEDS: Insulin Lispro 100 UNIT/ML INSULN.PEN SC ×4 (06:58→21:20)
[2019-03-22 07:10] LABS: Bedside Glucose 176 mg/dL (70-110)
--- NOTE | 2019-03-22 08:46 | CASEMGMT ---
SW spoke with patient as per PT he is agreeable to discussing SNF. Patient said someone told him he could do his rehab here at [facility] in TCU. SW told him that SW can check to see if they have any availability. SW told him if TCU does not have any availability he would have to choose another facility from the list SW is leaving him. LEONARDO called Lauren in TCU and put patient's name on the list. Jelena DAMON MSW
[2019-03-22] MEDS: Aspirin 81 MG TAB.CHEW PO (09:15)
[2019-03-22] MEDS: Losartan Potassium 25 MG Tablet 12.5 MG PO (09:15)
[2019-03-22] MEDS: Primidone 50 MG Tablet PO ×2 (09:15→21:14)
[2019-03-22] MEDS: Finasteride 5 MG Tablet PO (09:15)
[2019-03-22] MEDS: Pantoprazole Sodium 20 MG Tablet PO (09:15)
[2019-03-22] MEDS: Clopidogrel Bisulfate 75 MG Tablet PO (09:15)
[2019-03-22] MEDS: Digoxin 125 MCG Tablet PO (09:15)
[2019-03-22] MEDS: guaiFENesin 1,200 MG Tablet 1200 MG PO ×2 (09:15→21:16)
[2019-03-22] MEDS: Lactated Ringers 1,000 ML 50 ML IV (09:18)
--- NOTE | 2019-03-22 09:22 | CASEMGMT ---
LW/POA forms scanned into summary tab of echart, pt's Keturah Higgins is listed as healthcare POA. CHRISTA Lyon
--- NOTE | 2019-03-22 09:25 | PCA ---
Cancelled apt for 03/23 with since patient is now wanting to go to a SNF.
--- NOTE | 2019-03-22 09:48 | PN_ITS ---
Patient Problems: Active and Suspected Problems (Last Reviewed 03/18/19 @ 21:59 by Kirti Solomon DO) Acute respiratory failure with hypoxemia (Acute) Respiratory distress (Acute) Subjective: Seen and examined. He still really does not feel well and complains about not being expectorate sputum on coughing. He admits to some wheezing. Review of systems otherwise negative. Patient states he wants to go to rehab as he does not think he would do well at home. Systems otherwise negative. Labs and vitals reviewed. He has remained hemodynamically stable though he remains tachycardic. Vitals/I&O's: Vital Signs Temp Pulse Resp BP Pulse Ox 96.4 F L 105 H 20 H 164/73 H 96 03/22/19 09:15 03/22/19 09:15 03/22/19 09:15 03/22/19 09:15 03/22/19 09:15 Oxygen Delivery Method Room Air Weight: 165 lb 9.074 oz Body Mass Index (BMI) 25.9 Intake and Output for Last 24 Hours 03/20/19 03/21/19 03/22/19 23:59 23:59 23:59 Intake Total 2402.30 / 2402.30 1462.46 / 1462.46 1050 / 1050 Output Total 1625 / 1625 2300 / 2300 300 / 300 Balance 777.30 / 777.30 -837.54 / -837.54 750 / 750 General: Alert, Oriented x3, Cooperative, anxious HEENT: Atraumatic, PERRLA, EOMI, Normocephalic Oral: Dry Mucosa Neck: Supple, No JVD, Negative Carotid Bruits Lungs: - - decreased breath sounds in all lung arteaga; minimal wheezing, no rhonchi. On room air Cardiovascular: Regular rate, Normal S1, Normal S2, No murmurs, Tachycardic Abdomen: Bowel Sounds Present, Soft, Non Tender Extremities: No clubbing, No cyanosis, No edema, Capillary Refill Less than 3 Seconds Skin: No rashes, No breakdown Musculoskeletal: No Tenderness to Palpation of Joints or Extremities Lymphatic: No Cervical, Supraclavicular, or Inguinal Adenopathy Neurological: Cranial nerves II-XII grossly intact, Neuro grossly intact, Motor Exam 5/5 strength throughout Psych/Mental Status: anxious, Alert and oriented to time, place, person Microbiology Past 72 Hours 03/18/19 20:27 Blood Culture (Wb) #2 - Left Hand Blood Culture - Preliminary No growth in 48 hours. 03/18/19 20:12 Blood Culture (Wb) - Right Forearm Blood Culture - Preliminary No growth in 48 hours. 03/19/19 01:15 Mucosa - Nose Respiratory Panel (PCR) - Final Parainfluenza 1 Laboratory Results 03/21/19 12:48: POC Glucose 176 H 03/21/19 16:58: POC Glucose 160 H 03/21/19 23:43: POC Glucose 170 H 03/22/19 06:55: POC Glucose 176 H Current Medications Albuterol Sulfate (Ventolin Aerosols) 2.5 mg INHALATION Q2H PRN PRN PRN Reason: SOB &/OR WHEEZING Albuterol/Ipratropium (Duoneb) 3 ml INHALATION Q4H.RT [facility] Last Admin: 03/22/19 07:19 Dose: 3 ml Documented by: Aspirin (Aspirin, Baby) 81 mg PO DAILY@0800 [facility] Last Admin: 03/22/19 09:15 Dose: 81 mg Documented by: Clopidogrel Bisulfate (Plavix) 75 mg PO DAILY [facility] Last Admin: 03/22/19 09:15 Dose: 75 mg Documented by: Digoxin (Lanoxin) 125 mcg PO DAILY [facility] Last Admin: 03/22/19 09:15 Dose: 125 mcg Documented by: Doxazosin Mesylate (Cardura) 4 mg PO QHS [facility] Last Admin: 03/21/19 23:27 Dose: 4 mg Documented by: Enoxaparin Sodium (Lovenox) 40 mg SC DAILY@0600 [facility] Last Admin: 03/22/19 05:55 Dose: 40 mg Documented by: Finasteride (Proscar) 5 mg PO DAILY [facility] Last Admin: 03/22/19 09:15 Dose: 5 mg Documented by: Guaifenesin (Mucinex) 1,200 mg PO BID [facility] Last Admin: 03/22/19 09:15 Dose: 1,200 mg Documented by: Sodium Chloride () 500 mls @ 999 mls/hr IV .Q31M ONE Last Infusion: 03/18/19 21:08 Dose: Infused Documented by: Lactated Ringer's () 1,000 mls @ 50 mls/hr IV .Q20H [facility] Last Admin: 03/22/19 09:18 Dose: 50 mls/hr Documented by: Sodium Chloride () 250 mls @ 15 mls/hr IV .[id number] PRN PRN Reason: Saline Flush Last Infusion: 03/21/19 06:15 Dose: 0 mls/hr Documented by: Insulin Human Lispro (Humalog Kwikpen (Bkc)) 0 unit SC ACHS [facility]; Protocol Last Admin: 03/22/19 06:58 Dose: 1 units Documented by: Lorazepam (Ativan) 1 mg PO BID PRN PRN PRN Reason: ANXIETY Last Admin: 03/21/19 23:41 Dose: 1 mg Documented by: Losartan Potassium (Cozaar) 12.5 mg PO DAILY [facility] Last Admin: 03/22/19 09:15 Dose: 12.5 mg Documented by: Magnesium Citrate (Citrate Of Magnesia) 300 ml PO X1 [facility] Last Admin: 03/22/19 00:04 Dose: Not Given Documented by: Methylprednisolone (Solu-Medrol) 40 mg IV Q6 [facility] Last Admin: 03/22/19 05:56 Dose: 40 mg Documented by: Mirtazapine (Remeron) 30 mg PO QHS [facility] Last Admin: 03/21/19 23:28 Dose: 30 mg Documented by: Nitroglycerin (Nitrostat) 0.4 mg SUBLINGUAL Q5M PRN PRN Reason: Chest Pain Ondansetron HCl (Zofran) 4 mg IV Q8H PRN PRN PRN Reason: Nausea Pantoprazole Sodium (Protonix) 20 mg PO DAILY [facility] Last Admin: 03/22/19 09:15 Dose: 20 mg Documented by: Polyethylene Glycol (Miralax) 17 gm PO DAILY PRN PRN Reason: Constipation Prednisolone Acetate (Pred Forte Eye Drops (5 Ml)) 1 drop RIGHT EYE 4X/DAY PRN PRN PRN Reason: Dry Eye Primidone (Mysoline) 50 mg PO BID [facility] Last Admin: 03/22/19 09:15 Dose: 50 mg Documented by: Sodium Chloride () 10 - 40 ml IV UD PRN PRN Reason: SALINE FLUSH Last Admin: 03/22/19 05:56 Dose: 10 ml Documented by: Theophylline (Kevin-Dur) 300 mg PO BID [facility] Last Admin: 03/22/19 09:17 Dose: 300 mg Documented by: STROKE Vital Signs/Narrative: Vital Signs Temp Pulse Resp BP Pulse Ox 03/22/19 09:15 96.4 F L 105 H 20 H 164/73 H 96 03/22/19 08:10 24 H 03/22/19 07:01 104 H Medical Necessity - Tobacco Use Smoking Status: Former smoker Assessment/Plan All Active Problems (Last Reviewed 03/18/19 @ 21:59 by Kirti Solomon DO) Acute respiratory failure with hypoxemia (Acute) Respiratory distress (Acute) Chest pain (Acute) Normochromic normocytic anemia (Acute) Abnormal stress test (Acute) COPD (chronic obstructive pulmonary disease) (Acute) 1. Acute hypercapnic respiratory failure due to COPD exacerbation * still tachycardic; on room air * still says he doesnt feel well, though he is at his baseline * antibiotics were dc'd yesterday * still on IV solumedrol 40mg q6 * respiratory panel positive for paraninfluenza 1 virus * continue mucolytics; aggressive pulmonary toileting and breathing treatments * on theophylline 300 mg twice daily. * 2. COPD exacerbation due to parainfluenza infection. As under 1. 3. Lactic acidosis: resolved. 4. CAD s/p stents * On aspirin and Plavix as well as statin. * 5. Sinus tachycardia: * chronic. stable. Will monitor 6. History of lung cancer: stable 7. Type 2 diabetes mellitus: Usually diet controlled. now on ISS. accuchecks ACHS. 8. GERD: on PPI 9. Anxiety and depression: On Remeron. DVT prophylaxis: Lovenox. Disposition: awaiting placement. Code Visit Inpatient E&M: [id number] Subs Hosp L2
[2019-03-22] MEDS: dilTIAZem 25 MG/5 ML Vial IV BOLUS (12:05)
[2019-03-22] MEDS: LORazepam 1 MG Tablet PO ×2 (12:05→21:27)
[2019-03-22 12:15] LABS: Bedside Glucose 173 mg/dL (70-110)
[2019-03-22 12:31] LABS: Magnesium 2.4 mg/dL (1.6-2.6); Potassium 4.6 mmol/L (3.5-5.1)
--- NOTE | 2019-03-22 12:38 | CASEMGMT ---
SW spoke with patient and let him know TCU will not have any availability. SW asked if he knows where else he would be willing to go. He said he would have to talk with his and daughter to see where else they would like him to go. He said his should be in today. SW told him to ask for SW if they have questions. List of local nursing facilities was left with patient. Jelena DAMON MSW
--- NOTE | 2019-03-22 13:25 | CASEMGMT ---
Per [employer]DD JOB [employer]ORER patient's and daughter will be in today around 3p and would like to talk with SW about picking another facility for rehab. Jelena DAMON MSW
--- NOTE | 2019-03-22 15:14 | CASEMGMT ---
LEONARDO spoke with patient, his , and daughter. Patient's daughter did most of the talking. She said she wanted patient to go to TCU here at [facility]. LEONARDO explained they are full right now. She asked if he could stay in the hospital until a bed opens up. LEONARDO told her if he is medically ready to be discharged we cannot keep him here just to wait on a bed to open in TCU. LEONARDO told her physician would have discharged him today, but we don't have a facility yet so he will likely go tomorrow. They chose [facility]. LEONARDO explained Medicare coverage for SNF as well as transportation to [facility]. LEONARDO said he would go by [facility] if we could get one and this is not covered by insurance. LEONARDO told them it is around $50 base fee and then $2.50 per mile. LEONARDO also explained that family could also transport with help of yarn washer to get him into vehicle and [facility] helping him get inside. Patient's daughter said she prefers transportation be arranged. LEONARDO told them SW will make the referral to [facility] and let them know if there are any problems. LEONARDO told them patient is still on the TCU list in the event something would change, but at this point it is unlikely a bed will open up. LEONARDO called Susana at [facility] with referral and faxed information. Await response. Plan: [facility] pending their acceptance Jelena ZAVALETA
[2019-03-22 16:30] LABS: Bedside Glucose 152 mg/dL (70-110)
--- NOTE | 2019-03-22 19:45 | CPS ---
pt refused bipap for tonight
[2019-03-22] MEDS: Mirtazapine 30 MG Tablet PO (21:14)
[2019-03-22] MEDS: Doxazosin 4 MG Tablet PO (21:14)
[2019-03-22 21:30] LABS: Bedside Glucose 193 mg/dL (70-110)
[2019-03-23] VITALS (8 sets, daily range): BP systolic 137–139; BP diastolic 63–84; PULSE 104–127; RESP 18–20; TEMP 35.9–36.4; O2SAT 95–96
[2019-03-23] MEDS: Ipratropium/Albuterol Sulfate 3 ML AMPUL.NEB INHALATION ×3 (02:45→11:21)
[2019-03-23] MEDS: Lactated Ringers 1,000 ML 50 ML IV (05:55)
[2019-03-23] MEDS: Enoxaparin 40 MG/0.4 ML Syringe SC (05:55)
[2019-03-23] MEDS: Insulin Lispro 100 UNIT/ML INSULN.PEN SC (06:25)
[2019-03-23 06:45] LABS: Bedside Glucose 229 mg/dL (70-110)
--- NOTE | 2019-03-23 09:02 | CASEMGMT ---
Addendum entered by Jelena Magana 03/23/19 10:01: LEONARDO received d/c paperwork earlier than expected. LEONARDO faxed orders to [facility]. Completed convalescent on HENS. LEONARDO also called [facility] and arranged for patient to get picked up at 1130 via wc van. LEONARDO notified RN, social secretary, patient, his and daughter by phone, and Susana via voice mail. Plan: [facility] under skilled level of care on a convalescent stay. [facility] transported via wc van. Jelena DAMON CLIENT PROGRAM MANAGER Original Note: LEONARDO received a voice mail from Susana at [facility] and they can accept patient. Patient will likely be discharged today and he will need a wheelchair van. LEONARDO called [facility] and arranged for patient to get picked up at 3p via wc van. LEONARDO left a vm for Susana at [facility] letting her know. LEONARDO also let her know in the voice mail that patient's daughter is the one that will be completing the admission paperwork. Jelena DAMON CLIENT PROGRAM MANAGER
[2019-03-23] MEDS: Digoxin 125 MCG Tablet PO (09:17)
[2019-03-23] MEDS: guaiFENesin 1,200 MG Tablet 1200 MG PO (09:17)
[2019-03-23] MEDS: LORazepam 1 MG Tablet PO (09:17)
[2019-03-23] MEDS: Clopidogrel Bisulfate 75 MG Tablet PO (09:17)
[2019-03-23] MEDS: Aspirin 81 MG TAB.CHEW PO (09:17)
[2019-03-23] MEDS: Losartan Potassium 25 MG Tablet 12.5 MG PO (09:17)
[2019-03-23] MEDS: Primidone 50 MG Tablet PO (09:18)
[2019-03-23] MEDS: Pantoprazole Sodium 20 MG Tablet PO (09:18)
[2019-03-23] MEDS: Finasteride 5 MG Tablet PO (09:20)
--- NOTE | 2019-03-23 09:33 | PCM.TXEXTCAR ---
- Diet 03/19/19 06:21 Diabetic [Diet: Calorie Controlled] Is pt able to select menu?: Yes Diet Comments: ok for po meds How many daily calories?: 1800 calorie - Routine Orders/Code Status Enema Type: Fleetz Enema Frequency: Daily PRN Suppository Type: Dulcolax 10mg Suppository Frequency: Daily PRN O2 Frequency: PRN Keep PO Greater than or Equal to (%): 90 Code Status: DNRCC-A - Therapies Physical Therapy: Eval and Treat Occupational Therapy: Eval and Treat - Allergies/Procedures Done in Hospital Allergies/Adverse Reactions: Allergies gabapentin Allergy (Unknown, Verified 03/13/19 23:20) Unknown acetylcysteine [From Mucomyst] Allergy (Verified 03/13/19 23:20) Shortness of breath alprazolam [From Xanax] Allergy (Verified 03/13/19 23:20) breathing issues belladonna alkaloids Allergy (Verified 03/13/19 23:20) Unknown cephalexin Allergy (Verified 03/13/19 23:20) Unknown ciprofloxacin [From Cipro] Allergy (Verified 03/13/19 23:20) Unknown dicyclomine Allergy (Verified 03/13/19 23:20) Unknown diltiazem Allergy (Verified 03/13/19 23:20) Unknown doxycycline Allergy (Verified 03/13/19 23:20) Shortness of breath ezetimibe Allergy (Verified 03/13/19 23:20) Unknown fluvastatin Allergy (Verified 03/13/19 23:20) Unknown metoprolol [From Toprol XL] Allergy (Verified 03/13/19 23:20) Unknown nitrofurantoin Allergy (Verified 03/13/19 23:20) Unknown phenobarbital Allergy (Verified 03/13/19 23:20) Unknown prochlorperazine [From Compazine] Allergy (Verified 03/13/19 23:20) Unknown simvastatin [From Zocor] Allergy (Verified 03/13/19 23:20) Unknown Hgzetqv-Mfk-Peu Reductase Inhibitor Allergy (Verified 03/13/19 23:20) Unknown sulfamethoxazole [From Bactrim] Allergy (Verified 03/13/19 23:20) Unknown tamsulosin [From Flomax] Allergy (Verified 03/13/19 23:20) Unknown trimethoprim [From Bactrim] Allergy (Verified 03/13/19 23:20) Unknown carvedilol Adverse Reaction (Verified 03/13/19 23:20) Vomiting Procedures: None - Type of Care/Length of Stay Estimated LOS: Convalescent Care Less Than 30 days Type of Care Needed: Skilled Rehab Potential: Poor Prognosis: Poor - Additional Orders/Day of Discharge Day of Discharge: 03/23/19 - Dietary and Speech Recommendations Dietitian Recommendations/Changes: Continue 1800 calorie diet. - Follow Up Care Primary Care Physician: Dutch Lee III, MD [Primary Care Provider] - Please follow up with your Primary Care Physician in: one week Please Follow Up With: Dutch Lee III, MD Please Follow Up With: Андрей Hernandes MD When: 1-2 weeks
--- NOTE | 2019-03-23 09:35 | DS.PCM_ITS ---
Discharge Date and Diagnosis Date of Admission: 03/18/19 Date of Discharge: 03/23/19 - Primary Discharge Diagnosis Active and Suspected Problems (Last Reviewed 03/18/19 @ 21:59 by Kirti Solomon DO) Acute respiratory failure with hypoxemia and hypercapnia (Acute) Respiratory distress (Acute) COPD exacerbation - Secondary Discharge Diagnosis Chronic Problems (Last Reviewed 03/18/19 @ 21:59 by Kirti Solomon DO) Acute exacerbation of chronic obstructive pulmonary disease (COPD) (Chronic) S/P coronary artery stent placement (Chronic ~11/07/18) PTCA/stent to mid RCA @ [facility] 10/18/01; PTCA/TAMI of the prox Diag #1, PTCA/TAMI of the prox LAD, PTCA/TAMI of the mid LCX 10/12/18; PTCA/TAMI to mid RCA and PTCA/TAMI to prox/ostial RCA 11/07/18 Atherosclerotic heart disease of [place] coronary artery without angina pectoris (Chronic) Chronic renal failure, stage 2 (mild) (Chronic) CARLIN (obstructive sleep apnea) (Chronic) GERD (gastroesophageal reflux disease) (Chronic) Anxiety disorder (Chronic) with panic attacks History of coronary angioplasty (Chronic) Type II diabetes mellitus (Chronic) Hospital Course and Treatment Imaging Results: Diagnostic Data Chest X-Ray 03/19/19 04:15 IMPRESSION: Stable emphysema.. at 0512 Reported and signed by: Melecio Palomino MD Electronically Signed: Melecio Palomino MD at 5:11 EST Tel , Service support , pulmonology- Dr Cervantes, Dr Hernandes Operations: None Procedures: None Summary of Care Provided: The patient is a 79 year old M with an extensive past medical history as listed was admitted through the ED on 03/18/2019 with a complaint of progressively worsening shortness of breath. Patient had recently been discharged from the same hospital 4 days prior to this presentation after a 2-day stay for COPD exacerbation. However he said when he went home shortness of breath persisted so he decided to come into the ED. Chest x-ray showed no acute cardiopulmonary process; the squad placed him on CPAP and admission in the ED, he was placed on BiPAP. Chest x-ray showed no acute cardiopulmonary process. Patient was admitted and managed for acute hypercapnic and hypoxic respiratory failure due to COPD exacerbation. He was admitted in the ICU initially. Pulmonology was consulted. Patient tolerated BiPAP well and was eventually transitioned to oxygen by nasal cannula, and requiring BiPAP at night. Of note, patient tested positive for parainfluenza which was likely the same virus that he had been here with a few days ago when he also tested positive for parainfluenza 1. Patient remained tachycardic during admission and this was thought to be due to theophylline which patient had been on for years. This was initially stopped but at patient's insistence, this was restarted as he said he had been on it for about 30 years and his fast heart rate did not bother him. Patient also had mild lactic acidosis which subsequently resolved. Patient remained very anxious during admission which contributed to worsening of his shortness of breath. Per recommendation of his primary staff toxicologist Dr. Hernandes, patient was given a dose of nebulized morphine after he discussed with pharmacy and they were okay with given its. Patient shortness of breath subjectively improved with administration of nebulized morphine. He remained stable and was [facility] a [facility]2019 for further rehab. He was discharged with a prescription for Medrol Dosepak. He is to continue his breathing treatments in the [facility] and is to follow-up with his primary care doctor and staff toxicologist. Patient seen and examined prior to discharge. He felt well and had no complaints. Said his shortness of breath had improved significantly. Review of systems otherwise negative. Labs and vitals reviewed. Home medication reviewed and reconciled. o/e: Vital Signs Height 5 ft 5 in Weight: 166 lb 3.657 oz Weight in Pounds 166.2 lbs BMI 23.5 Pulse Ox 96 Temperature 96.7 F Pulse Rate 109 Respiratory Rate 18 Blood Pressure [BP] 153/85 Blood Pressure 137/63 Blood Pressure Position [BP] Semi-Fowlers Blood Pressure Position Semi-Fowlers [] General: Alert, Oriented x3, Cooperative HEENT: Atraumatic, PERRLA, EOMI, Normocephalic Oral: Dry Mucosa Neck: Supple, No JVD, Negative Carotid Bruits Lungs: - - decreased breath sounds in all lung arteaga; minimal wheezing, no rhonchi. On room air Cardiovascular: Regular rate, Normal S1, Normal S2, No murmurs, Tachycardic Abdomen: Bowel Sounds Present, Soft, Non Tender Extremities: No clubbing, No cyanosis, No edema, Capillary Refill Less than 3 Seconds Skin: No rashes, No breakdown Musculoskeletal: No Tenderness to Palpation of Joints or Extremities Lymphatic: No Cervical, Supraclavicular, or Inguinal Adenopathy Neurological: Cranial nerves II-XII grossly intact, Neuro grossly intact, Motor Exam 5/5 strength throughout Psych/Mental Status: anxious, Alert and oriented to time, place, person Plan as above. - Physical Exam Vitals/I&O's: Vital Signs Temp Pulse Resp BP Pulse Ox 96.7 F L 127 H 20 H 137/63 H 96 03/23/19 09:16 03/23/19 09:17 03/23/19 09:16 03/23/19 09:16 03/23/19 09:16 Oxygen Delivery Method Room Air Weight: 166 lb 3.657 oz Body Mass Index (BMI) 25.9 Intake and Output for Last 24 Hours 03/21/19 03/22/19 03/23/19 23:59 23:59 23:59 Intake Total 1462.46 / 1462.46 2132 / 2132 1125 / 1125 Output Total 2300 / 2300 1100 / 1100 Balance -837.54 / -837.54 1032 / 1032 1125 / 1125 Microbiology Past 72 Hours 03/21/19 16:53 Sputum, Expectorated/Coughed Gram Stain - Final 03/18/19 20:27 Blood Culture (Wb) #2 - Left Hand Blood Culture - Preliminary No growth in 48 hours. 03/18/19 20:12 Blood Culture (Wb) - Right Forearm Blood Culture - Preliminary No growth in 48 hours. Laboratory Results 03/22/19 11:55: Potassium 4.6, Magnesium 2.4 03/22/19 12:00: POC Glucose 173 H 03/22/19 16:26: POC Glucose 152 H 03/22/19 21:19: POC Glucose 193 H 03/23/19 06:23: POC Glucose 229 H Current Medications Albuterol/Ipratropium (Duoneb) 3 ml INHALATION Q4H.RT JENNIFER Last Admin: 03/23/19 07:00 Dose: 3 ml Documented by: Aspirin (Aspirin, Baby) 81 mg PO DAILY@0800 [facility] Last Admin: 03/23/19 09:17 Dose: 81 mg Documented by: Clopidogrel Bisulfate (Plavix) 75 mg PO DAILY [facility] Last Admin: 03/23/19 09:17 Dose: 75 mg Documented by: Digoxin (Lanoxin) 125 mcg PO DAILY [facility] Last Admin: 03/23/19 09:17 Dose: 125 mcg Documented by: Doxazosin Mesylate (Cardura) 4 mg PO QHS [facility] Last Admin: 03/22/19 21:14 Dose: 4 mg Documented by: Enoxaparin Sodium (Lovenox) 40 mg SC DAILY@0600 [facility] Last Admin: 03/23/19 05:55 Dose: 40 mg Documented by: Finasteride (Proscar) 5 mg PO DAILY [facility] Last Admin: 03/23/19 09:20 Dose: 5 mg Documented by: Guaifenesin (Mucinex) 1,200 mg PO BID [facility] Last Admin: 03/23/19 09:17 Dose: 1,200 mg Documented by: Sodium Chloride () 500 mls @ 999 mls/hr IV .Q31M ONE Last Infusion: 03/18/19 21:08 Dose: Infused Documented by: Lactated Ringer's () 1,000 mls @ 50 mls/hr IV .Q20H [facility] Last Admin: 03/23/19 05:55 Dose: 50 mls/hr Documented by: Sodium Chloride () 250 mls @ 15 mls/hr IV .[id number] PRN PRN Reason: Saline Flush Last Infusion: 03/21/19 06:15 Dose: 0 mls/hr Documented by: Insulin Human Lispro (Humalog Kwikpen (Bkc)) 0 unit SC ACHS [facility]; Protocol Last Admin: 03/23/19 06:25 Dose: 2 units Documented by: Lorazepam (Ativan) 1 mg PO BID PRN PRN PRN Reason: ANXIETY Last Admin: 03/23/19 09:17 Dose: 1 mg Documented by: Losartan Potassium (Cozaar) 12.5 mg PO DAILY [facility] Last Admin: 03/23/19 09:17 Dose: 12.5 mg Documented by: Magnesium Citrate (Citrate Of Magnesia) 300 ml PO X1 [facility] Last Admin: 03/23/19 00:41 Dose: Not Given Documented by: Methylprednisolone (Solu-Medrol) 40 mg IV Q6 [facility] Last Admin: 03/23/19 05:55 Dose: 40 mg Documented by: Mirtazapine (Remeron) 30 mg PO QHS [facility] Last Admin: 03/22/19 21:14 Dose: 30 mg Documented by: Morphine Sulfate (Infumorph Pf 25 Mg/Ml Ampul) 5 mg IH Q4H PRN PRN Reason: SHORTNESS OF BREATH Nitroglycerin (Nitrostat) 0.4 mg SUBLINGUAL Q5M PRN PRN Reason: Chest Pain Ondansetron HCl (Zofran) 4 mg IV Q8H PRN PRN PRN Reason: Nausea Pantoprazole Sodium (Protonix) 20 mg PO DAILY [facility] Last Admin: 03/23/19 09:18 Dose: 20 mg Documented by: Polyethylene Glycol (Miralax) 17 gm PO DAILY PRN PRN Reason: Constipation Prednisolone Acetate (Pred Forte Eye Drops (5 Ml)) 1 drop RIGHT EYE 4X/DAY PRN PRN PRN Reason: Dry Eye Primidone (Mysoline) 50 mg PO BID [facility] Last Admin: 03/23/19 09:18 Dose: 50 mg Documented by: Sodium Chloride () 10 - 40 ml IV UD PRN PRN Reason: SALINE FLUSH Last Admin: 03/22/19 17:27 Dose: 10 ml Documented by: Theophylline (Kevin-Dur) 300 mg PO BID [facility] Last Admin: 03/23/19 09:20 Dose: 300 mg Documented by: Discharge Diet: Low fat/ Low Cholesterol Discharge Activity: Return to Normal Activity Weight Bearing Status: Weight bearing as tolerated Call your doctor if you observe: Fever of 101 or Higher, Shortness of breath Home Medications: Medications to take at Discharge Aspirin [Aspirin, Baby] 81 mg PO DAILY@0800 11/13/15 Budesonide/Formoterol 160/4.5 [Symbicort 160/4.5 Mcg Inhaler (SP)] 2 puff INHALATION BID 11/13/15 Doxazosin Mesylate [Cardura] 4 mg PO QHS 11/13/15 Finasteride [Proscar] 5 mg PO DAILY 11/13/15 Mirtazapine [Remeron] 30 mg PO QHS 11/13/15 Omeprazole [Prilosec] 20 mg PO DAILY 11/13/15 Theophylline [Kevin-Dur] 300 mg PO BID 11/13/15 prednisoLONE eye drops (1 mL) [Pred Forte eye drops (1 mL)] 1 drp RIGHT EYE 4X/DAY PRN PRN 11/13/15 Guaifenesin [Mucinex] 1,200 mg PO BID PRN 07/29/17 Albuterol Inhaler [Ventolin Hfa] 1 - 2 puff INHALATION Q4H PRN PRN #1 inhaler 08/26/17 Ipratropium/Albuterol Sulfate [Duoneb] 3 ml INHALATION 4X/DAY PRN 03/11/18 Nitroglycerin (INPATIENT USE) [Nitrostat] 0.4 mg SUBLINGUAL Q5M PRN 03/11/18 Roflumilast [Daliresp] 500 mcg PO DAILY 03/11/18 Furosemide [Lasix] 20 mg PO QWEEK PRN 10/10/18 Lorazepam [Ativan] 1 mg PO BID PRN PRN 10/27/18 primidone 50 mg tablet 50 mg PO BID tab 10/27/18 clopidogrel 75 mg tablet 75 mg PO DAILY #90 tab 11/08/18 losartan 25 mg tablet 12.5 mg PO DAILY #45 tab 11/08/18 magnesium citrate 300 ml PO X1 bottle 11/14/18 digoxin 250 mcg (0.25 mg) tablet 125 mcg PO DAILY #30 tab 01/27/19 MethylPREDNISolone DosePak [Medrol DosePak] 4 mg PO UD #1 box 03/23/19 Following Prescrptions Were Given to Patient: MethylPREDNISolone DosePak [Medrol DosePak] 4 mg PO UD #1 box Prescription Printed Primary Care Physician: Dutch Lee III, MD [Primary Care Provider] - Please follow up with your Primary Care Physician in: one week Please Follow Up With: Dutch Lee III, MD Please Follow Up With: Андрей Hernandes MD When: 1-2 weeks Disposition: [facility] facility Minutes spent on discharge:: 45 Patient Condition:: Stable Medical Necessity - Tobacco Use Smoking Status: Former smoker Meaningful Use Info Meaningful Use Diagnoses (Choose all that apply): None applicable Code Visit Inpatient E&M: 96878 Disch Hosp
--- NOTE | 2019-03-23 10:39 | PHA.DC.MR ---
Pharmacy Service has performed discharge medication reconciliation for this patient upon transfer to [facility]. The patient's discharge medication list was reviewed for discrepancies and discrepancies were resolved. Home Medications Aspirin [Aspirin, Baby] 81 mg PO DAILY@0800 11/13/15 Budesonide/Formoterol 160/4.5 [Symbicort 160/4.5 Mcg Inhaler (SP)] 2 puff INHALATION BID 11/13/15 Doxazosin Mesylate [Cardura] 4 mg PO QHS 11/13/15 Finasteride [Proscar] 5 mg PO DAILY 11/13/15 Mirtazapine [Remeron] 30 mg PO QHS 11/13/15 Omeprazole [Prilosec] 20 mg PO DAILY 11/13/15 Theophylline [Kevin-Dur] 300 mg PO BID 11/13/15 prednisoLONE eye drops (1 mL) [Pred Forte eye drops (1 mL)] 1 drp RIGHT EYE 4X/DAY PRN PRN 11/13/15 Guaifenesin [Mucinex] 1,200 mg PO BID PRN 07/29/17 Albuterol Inhaler [Ventolin Hfa] 1 - 2 puff INHALATION Q4H PRN PRN #1 inhaler 08/26/17 Ipratropium/Albuterol Sulfate [Duoneb] 3 ml INHALATION 4X/DAY PRN 03/11/18 Nitroglycerin (INPATIENT USE) [Nitrostat] 0.4 mg SUBLINGUAL Q5M PRN 03/11/18 Roflumilast [Daliresp] 500 mcg PO DAILY 03/11/18 Furosemide [Lasix] 20 mg PO QWEEK PRN 10/10/18 Lorazepam [Ativan] 1 mg PO BID PRN PRN 10/27/18 primidone 50 mg tablet 50 mg PO BID tab 10/27/18 clopidogrel 75 mg tablet 75 mg PO DAILY #90 tab 11/08/18 losartan 25 mg tablet 12.5 mg PO DAILY #45 tab 11/08/18 magnesium citrate 300 ml PO X1 bottle 11/14/18 digoxin 250 mcg (0.25 mg) tablet 125 mcg PO DAILY #30 tab 01/27/19 MethylPREDNISolone DosePak [Medrol DosePak] 4 mg PO UD #1 box 03/23/19
--- NOTE | 2019-03-23 11:30 | NURSING ---
Called report to Archana BLACK at [facility]
== END 2019-03-23 11:41 | disposition skilled nursing facility (03) | DRG 190 ==
LOC: ED 21:58 → ICU 03-19 07:17 → PCU 03-20 07:44 → ICU 03-21 06:51 → PCU 03-21 06:51
PROVIDERS: Admitting Provider Internal Medicine; Emergency Provider Emergency Medicine; Family Provider Family Medicine; PCP Family Medicine; Referring Provider Internal Medicine; Visit Provider Student in an Organized Health Care Education/Training Program
DX: J44.1 Chronic obstructive pulmonary disease with (acute) exacerbation (principal); J96.01 Acute respiratory failure with hypoxia; J96.02 Acute respiratory failure with hypercapnia; E87.2 Acidosis; K21.9 Gastro-esophageal reflux disease without esophagitis; G47.33 Obstructive sleep apnea (adult) (pediatric); N40.0 Benign prostatic hyperplasia without lower urinary tract symptoms; I25.10 Atherosclerotic heart disease of native coronary artery without angina pectoris; J06.9 Acute upper respiratory infection, unspecified; B97.89 Other viral agents as the cause of diseases classified elsewhere; N18.3 Chronic kidney disease, stage 3 (moderate); F41.0 Panic disorder [episodic paroxysmal anxiety]; R00.0 Tachycardia, unspecified; Z87.891 Personal history of nicotine dependence; E11.22 Type 2 diabetes mellitus with diabetic chronic kidney disease; Z95.5 Presence of coronary angioplasty implant and graft; T48.6X5A Adverse effect of antiasthmatics, initial encounter; Z85.118 Personal history of other malignant neoplasm of bronchus and lung; Z90.2 Acquired absence of lung [part of]
CPT/HCPCS: 36415; 71045; 80048; 80053; 80162; 80198; 82962; 83605; 83735; 84132; 84484; 85025; 87040; 87070; 87205; 87633; 87804; 93005; 94002; 94003; 94640; 94667; 94668; 97110; 97116; 97162; 97166; 97530; 99285; J7030; J7040; J7050; J7120; A4216; J2274

== ENCOUNTER 2019-03-26 13:23 | Emergency (ER) | payer MEDICARE, BC, SELFPAY ==
[2018-11-07 13:51] VITALS: BMI 23.5
[2019-03-26 13:23] VITALS: BMI 26.1
[2019-03-26 13:24] VITALS: BP 177/102; PULSE 110; RESP 15; TEMP 36.8; O2SAT 98; BMI 28.5
[2019-03-26 14:00] LABS: Bacteria 0 SEEN /hpf (None Seen); Mucous, Urine 0 SEEN /hpf (<or=2+); Squamous Epithelial Cells - UA 0 SEEN /hpf (0-5)
[2019-03-26 14:03] LABS: Color, Urine Yellow (Yellow); Glucose, Dipstick Normal (Normal); Ketone-Dipstick Negative (Negative); Leukocyte Esterase-Dipstick 25 /ul (Negative); Nitrite-Dipstick Negative (Negative); Occult Blood-Urine 250 /ul (Negative); Protein-Dipstick 15 mg/dl (Negative); Urine Bilirubin Dipstick Negative (Negative); Urine Clarity Cloudy (Clear); Urine Urobilinogen Normal (Normal)
[2019-03-26 14:14] LABS: Red Blood Cells-Urine > 100 SEEN /hpf (0-5); White Blood Cells 0-5 SEEN /hpf (0-5)
--- NOTE | 2019-03-26 14:23 | ED.RN ---
UPON ARRIVAL TO ED PT WAS FOUND TO HAVE BRUISING TO THE TIP OF THE PENIS. PETECHIAE ALSO NOTED. PT WAS COMPLAINING OF PAIN AND DISCOMFORT PRIOR TO CATH. PER PATIENT [facility] MADE AN ATTEMPT TO CATH WITHOUT SUCCESS. Tyrel YBARRA RN 1964
--- NOTE | 2019-03-26 14:41 | ED.DCSUM_ITS ---
- ER Visit Summary Date of Service: 03/26/19 Chief Complaint: [Urinary retention] History of Present Illness: The patient is a 79 M [presents the emergency department with complaint of inability to void this morning. Patient is currently at a longterm rehabbing. Patient had recent admission to this [facility] for respiratory failure and generalized weakness. He had a history of COPD as well as coronary artery disease and history of BPH. Patient sees a urologist out of [facility] by the name of Dr. Angel. Patient denies any fevers. He denies dysuria. He has never had an issue with retention before. Denies recent surgeries.] Physical Examination: [HEENT-PERRLA, EOMI. Cranial nerves II through XII grossly intact. TMs clear. Mucous membranes moist. No adenopathy. Cardiovascular-regular rate and rhythm without murmur or ectopy Lungs-clear to auscultation, chest wall stable without crepitus or subcu emphysema Abdomen-normoactive bowel sounds, soft. Patient has some suprapubic tenderness on palpation. There is a fullness palpated. No rebound, rigidity, or peritoneal signs. Extremities-intact ?4, normal range of motion, normal pulses, atraumatic] Test Results: [Urinalysis obtained showed RBCs without signs of infection.] Emergency Department Course and Treatment: [Patient had a Colvin catheter placed and had over a liter of urine immediately obtained. Patient immediately felt better.] Treatment Plan: [Plan will be to leave the Colvin catheter in place and have patient follow-up with his urologist and 4 to 5 days.] Disposition: [Discharged home stable condition.] Impression: [Urinary retention] This note was generated with food.de dictation software. It may contain incorrect words, spelling, and punctuation that were not noted in review of the chart prior to signing ED Disposition - Plan for ED Patient: Referrals: Dutch Lee III, MD [Primary Care Provider] -
--- NOTE | 2019-03-26 14:44 | ED.DEP ---
ED Disposition - Plan for ED Patient: Instructions: URINARY RETENTION, Male Referrals: Dutch Lee III, MD [Primary Care Provider] - Additional Instructions: See Dr. Angel in 4-5 days
[2019-03-26 15:03] VITALS: BP 114/71; PULSE 106; RESP 16; O2SAT 98
== END 2019-03-26 15:17 | disposition home or self-care (01) ==
PROVIDERS: Emergency Provider Emergency Medicine; Family Provider Family Medicine; PCP Family Medicine
DX: N40.1 Benign prostatic hyperplasia with lower urinary tract symptoms (principal); R33.8 Other retention of urine; I25.10 Atherosclerotic heart disease of native coronary artery without angina pectoris; J44.9 Chronic obstructive pulmonary disease, unspecified; Z79.82 Long term (current) use of aspirin; Z79.899 Other long term (current) drug therapy; Z72.0 Tobacco use
CPT/HCPCS: 51702; 81001; 99285

== ENCOUNTER 2019-04-11 03:03 | Inpatient (IN) | payer MEDICARE, BC, SELFPAY ==
[2018-11-07 13:51] VITALS: BMI 23.5
[2019-04-11] VITALS (14 sets, daily range): BP systolic 107–142; BP diastolic 53–71; PULSE 86–106; RESP 16–20; TEMP 36.4–36.7; O2SAT 93–97; BMI 26.3; BMI 24.0
--- NOTE | 2019-04-11 03:34 | ED.VIS.GEN ---
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 Patient states that there was no hematuria present immediately upon the new Colvin being placed, but it developed later. They irrigated twice, patient was still having bladder pain, bladder scan showed 134 mL residual, and the patient continues to have bleeding and pain so he was sent to the ER for further evaluation. Patient appears to be on aspirin and clopidogrel, no anticoagulants. He denies any recent injury, fevers, nausea, vomiting, back pain. He is always short of breath as he has very severe COPD, he states that is relatively stable right now. - Past Medical History (1) Atherosclerotic heart disease of [place] coronary artery without angina pectoris Status: Chronic (2) Normochromic normocytic anemia Status: Chronic (3) Chronic renal failure, stage 2 (mild) Status: Chronic (4) CARLIN (obstructive sleep apnea) Status: Chronic (5) GERD (gastroesophageal reflux disease) Status: Chronic (6) Anxiety disorder Status: Chronic Comment: with panic attacks (7) COPD (chronic obstructive pulmonary disease) Status: Chronic (8) History of coronary angioplasty Status: Chronic (9) Type II diabetes mellitus Status: Chronic Past Medical History - Allergies and Home Meds Allergies/Adverse Reactions: Allergies gabapentin Allergy (Unknown, Verified 04/11/19 03:04) Unknown acetylcysteine [From Mucomyst] Allergy (Verified 04/11/19 03:04) Shortness of breath alprazolam [From Xanax] Allergy (Verified 04/11/19 03:04) breathing issues belladonna alkaloids Allergy (Verified 04/11/19 03:04) Unknown cephalexin Allergy (Verified 04/11/19 03:04) Unknown ciprofloxacin [From Cipro] Allergy (Verified 04/11/19 03:04) Unknown dicyclomine Allergy (Verified 04/11/19 03:04) Unknown diltiazem Allergy (Verified 04/11/19 03:04) Unknown doxycycline Allergy (Verified 04/11/19 03:04) Shortness of breath ezetimibe Allergy (Verified 04/11/19 03:04) Unknown fluvastatin Allergy (Verified 04/11/19 03:04) Unknown metoprolol [From Toprol XL] Allergy (Verified 04/11/19 03:04) Unknown nitrofurantoin Allergy (Verified 04/11/19 03:04) Unknown phenobarbital Allergy (Verified 04/11/19 03:04) Unknown prochlorperazine [From Compazine] Allergy (Verified 04/11/19 03:04) Unknown simvastatin [From Zocor] Allergy (Verified 04/11/19 03:04) Unknown Llyhfxw-Xwp-Log Reductase Inhibitor Allergy (Verified 04/11/19 03:04) Unknown sulfamethoxazole [From Bactrim] Allergy (Verified 04/11/19 03:04) Unknown tamsulosin [From Flomax] Allergy (Verified 04/11/19 03:04) Unknown trimethoprim [From Bactrim] Allergy (Verified 04/11/19 03:04) Unknown carvedilol Adverse Reaction (Verified 04/11/19 03:04) Vomiting Primary Care Physician: Dutch Lee III, MD [Primary Care Provider] - Surgical History: - - Lobectomy, cardiac stent placement Lives: [facility] Smoking Status: Never smoker - Family History Maternal Family History: Family History (Last Reviewed 11/14/18 @ 13:23 by Yuko Dangelo) Mother CAD (coronary artery disease) Hypertension Brother CAD (coronary artery disease) Hypertension Other Heart disease Family History: Reports: Hypertension Additional Family History: Heart failure Paternal Family History: Family History (Last Reviewed 11/14/18 @ 13:23 by Yuko Dangelo) Mother CAD (coronary artery disease) Hypertension Brother CAD (coronary artery disease) Hypertension Other Heart disease Family History: Reports: - - father was a smoker with copd Additional Family History: COPD Review of Systems General: Denies: Chills, Fever, Sweats Eyes: Denies: Visual changes - bilaterally, Diplopia ENT: Denies: Rhinorrhea, Sore throat Cardiovascular: Denies: Chest pain, Palpitations Respiratory: Reports: Dyspnea, Cough - Chronic, Dyspnea on exertion - Chronic Gastrointestinal: Reports: Abdominal pain. Denies: Nausea, Vomiting, Diarrhea, Melena, Hematochezia Genitourinary: Reports: Hematuria Musculoskeletal: Denies: Back pain, Swelling, Extremity Pain Skin: Denies: Rash, Wounds Neurological: Denies: Headache, Weakness, Numbness Psych: Reports: Anxiety. Denies: Suicidal thoughts Physical Exam Vital Signs/Narrative: Vital Signs Temp Pulse Resp BP Pulse Ox 04/11/19 03:05 97.5 F L 106 H 18 142/71 H 95 Inital Vital Signs reviewed: Yes General: Well nourished, Well developed, No Acute Distress Head: Normocephalic, Atraumatic Eyes: Perrl, EOMI ENT: Moist mucous membranes, No rhinorrhea Neck: Supple, Nontender Cardiovascular: Regular rate, Regular rhythm, No murmurs, Tachycardia - Mild Respiratory: No distress, CTA bilaterally, Chest nontender, Diminished - Throughout, symmetrically Abdomen: Soft, Nondistended, Normal bowel sounds, Tender - Suprapubic, moderate-severe. Negative for: Guarding, Rebound tenderness : - - Gross hematuria with clots present in Colvin catheter, [address] Back: Nontender, Normal Inspection. Negative for: CVA tenderness Extremities: Nontender, No edema Skin: Normal color, No rash, No Trauma Neurological: Alert, Oriented x3, Cranial nerves II-XII grossly intact, Normal Strength, Normal Sensation Psychological: Normal affect, Normal Mood Diagnostic/Tx/Re-eval Laboratory Results 04/11/19 04/11/19 04/11/19 03:45 03:45 03:56 WBC 5.6 RBC 3.35 L Hgb 9.9 L Hct 29.2 L MCV 87.2 MCH 29.6 MCHC 33.9 RDW Std Deviation 41.8 RDW Coeff of Ye 13.3 Plt Count 219 MPV 9.5 Immature Gran % (Auto) 0.700 Neut % (Auto) 69.1 Lymph % (Auto) 16.8 L [place] % (Auto) 10.1 H Eos % (Auto) 2.9 Baso % (Auto) 0.4 Absolute Neuts (auto) 3.8 Absolute Lymphs (auto) 0.93 Nucleated RBC % 0 Sodium 134 L Potassium 3.1 L Chloride 99 Carbon Dioxide 29.0 Anion Gap 6 BUN 11 Creatinine 0.82 Estim Creat Clear Calc 61.46 Est GFR (MDRD) Af Amer 115 Est GFR (MDRD) Non-Af 95 BUN/Creatinine Ratio 13.3 Glucose 136 H Calcium 8.0 L Urine Color Red Urine Clarity Turbid Urine pH 7.0 Ur Specific [place] 1.010 Urine Protein 500 H Urine Glucose (UA) 50 H Urine Ketones 15 H Urine Occult Blood 250 H Urine Nitrite Negative Urine Bilirubin Negative Urine Urobilinogen Normal Ur Leukocyte Esterase 25 H Urine RBC > 100 SEEN Urine WBC 25-50 SEEN Ur Squamous Epith Cells 0 SEEN Urine Bacteria 0 SEEN Urine Mucus 0 SEEN - Medical Decision Making We remove the patient's 18 [place] Colvin and after Urojet pretreatment replaced it with a 22 [place] triple lumen and irrigated extensively. Over a liter of blood and clots was removed, excluding irrigation. The patient felt much better. However with observation, he continued to have gross hematuria. His hemoglobin is down about a gram compared with a week ago, however it is not low enough to require transfusion. But given that he is on aspirin and clopidogrel and continues to bleed, I think admitting him with continuous bladder irrigation would be indicated. Dr. penaloza is in agreement. Will admit to hospitalist given his other medical problems, patient is asking for a breathing treatment at this time so will order that as well. ED Disposition - Plan for ED Patient: Disposition: Acute Care Hospital [facility] Diagnosis: Hematuria, Acute urinary retention, COPD (chronic obstructive pulmonary disease) Referrals: Dutch Lee III, MD [Primary Care Provider] -
[2019-04-11 03:49] LABS: Absolute Lymphocyte Count 0.93 X10^3/uL (0.83-4.51); Absolute Neutrophil Count 3.8 X10^3/uL (2.0-7.7); Basophil# 0.02 X10^3/uL; Basophil% 0.4 % (0-1); Eosinophil# 0.16 X10^3/uL; Eosinophils% 2.9 % (0-5); Hematocrit 29.2 % (40-54); Hemoglobin 9.9 g/dL (13.0-16.5); Lymphocyte # 0.93 X10^3/ul (4.0); Lymphocyte % 16.8 % (19-41); Mean Corp Hgb Conc 33.9 g/dL (32-36); Mean Corpuscular Hgb 29.6 pg (27.0-32.0); Mean Corpuscular Volume 87.2 fL (80-94); Mean Platelet Vol. 9.5 fl (6.2-12.0); Monocyte# 0.56 X10^3/uL; Monocyte% 10.1 % (0-10); NRBC Flagged by Analyzer 0 % (0-5); Neutrophil # 3.84 X10^3/uL (2.7-7.7); Neutrophil % 69.1 % (47-70); Platelet Count 219 K/mm3 (150-450); RBC Distribution Width CV 13.3 % (11.6-14.6); RBC Distribution Width SD 41.8 fl (35.1-43.9); Red Blood Count 3.35 M/mm3 (4.6-6.2); White Blood Count 5.6 K/mm3 (4.4-11.0)
[2019-04-11] MEDS: Lidocaine Jelly 2% 20 ML Syringe (URO-JET) 20 APPLIC TOPICAL (03:55)
[2019-04-11 04:03] LABS: Bacteria 0 SEEN /hpf (None Seen); Mucous, Urine 0 SEEN /hpf (<or=2+); Squamous Epithelial Cells - UA 0 SEEN /hpf (0-5)
[2019-04-11 04:04] LABS: Anion Gap 6 (5-15); BUN 11 mg/dL (7-18); BUN/Creat Ratio 13.3 RATIO (10-20); Chloride 99 mmol/L (98-107); Creatinine, Serum 0.82 mg/dL (0.70-1.30); EST Glomerular Filtration Rate 95 mL/min (>60); Est Glom Filt Rate - Afr Amer 115 mL/min (>60); Estimated Creatinine Clearance 61.46 ml/min; Glucose 136 mg/dL (74-106); Potassium 3.1 mmol/L (3.5-5.1); Sodium Level 134 mmol/L (136-145)
--- NOTE | 2019-04-11 04:24 | ED.RN ---
bladder manual irrigation 1400 ml multiple large clots noted urine was clear pink upon complication
[2019-04-11 04:33] LABS: Color, Urine Red (Yellow); Glucose, Dipstick 50 mg/dl (Normal); Ketone-Dipstick 15 mg/dl (Negative); Leukocyte Esterase-Dipstick 25 /ul (Negative); Nitrite-Dipstick Negative (Negative); Occult Blood-Urine 250 /ul (Negative); Protein-Dipstick 500 mg/dl (Negative); Urine Bilirubin Dipstick Negative (Negative); Urine Clarity Turbid (Clear); Urine Urobilinogen Normal (Normal)
[2019-04-11 04:36] LABS: Red Blood Cells-Urine > 100 SEEN /hpf (0-5); White Blood Cells 25-50 SEEN /hpf (0-5)
[2019-04-11] MEDS: Ipratropium/Albuterol Sulfate 3 ML AMPUL.NEB INHALATION ×3 (04:52→17:43)
--- NOTE | 2019-04-11 05:55 | HP.PCM_ITS ---
Problem List (1) Respiratory distress Status: Chronic (2) Hematuria Status: Acute (3) Acute urinary retention Status: Acute (4) S/P coronary artery stent placement Status: Chronic Comment: PTCA/stent to mid RCA @ [facility] 10/18/01; PTCA/TAMI of the prox Diag #1, PTCA/TAMI of the prox LAD, PTCA/TAMI of the mid LCX 10/12/18; PTCA/TAMI to mid RCA and PTCA/TAMI to prox/ostial RCA 11/07/18 (5) Atherosclerotic heart disease of [place] coronary artery without angina pectoris Status: Chronic Qualifiers: [place] vs. transplanted heart: [place] heart Qualified Code(s): I25.10 - Atherosclerotic heart disease of [place] coronary artery without angina pectoris (6) CARLIN (obstructive sleep apnea) Status: Chronic (7) GERD (gastroesophageal reflux disease) Status: Chronic (8) Anxiety disorder Status: Chronic Comment: with panic attacks (9) COPD (chronic obstructive pulmonary disease) Status: Chronic Qualifiers: COPD type: COPD with acute exacerbation Qualified Code(s): J44.1 - Chronic obstructive pulmonary disease with (acute) exacerbation (10) Type II diabetes mellitus Status: Chronic History of Present Illness Date of Admission: 04/11/19 Chief Complaint: urinary retention The patient is a 79 year old male patient with a significant past medical history of chronic obstructive pulmonary disease, coronary artery disease, urinary retention who presents the emergency room from residential facility states earlier yesterday the patient had a Colvin catheter removed but was unable to void afterwards. A new Colvin catheter was therefore placed at which point there was no gross hematuria present and clear urine was flowing initially but then flow stopped. The nursing facility attempted irrigation 2 times but due to the fact that post void scan showed 134 mL residual and the patient was experiencing pain he was sent to the emergency room for evaluation. In the emergency room he had gross hematuria after irrigation. Urology was notified and hospitalist team called to admit due to the patient's comorbidity of chronic obstructive pulmonary disease. Past Medical History Past Medical History (Chronic Problems): Chronic Problems (Last Reviewed 03/18/19 @ 21:59 by Kirti Solomon DO) Acute exacerbation of chronic obstructive pulmonary disease (COPD) (Chronic) Respiratory distress (Chronic) S/P coronary artery stent placement (Chronic ~11/07/18) PTCA/stent to mid RCA @ [facility] 10/18/01; PTCA/TAMI of the prox Diag #1, PTCA/TAMI of the prox LAD, PTCA/TAMI of the mid LCX 10/12/18; PTCA/TAMI to mid RCA and PTCA/TAMI to prox/ostial RCA 11/07/18 Atherosclerotic heart disease of [place] coronary artery without angina pectoris (Chronic) Normochromic normocytic anemia (Chronic) Chronic renal failure, stage 2 (mild) (Chronic) CARLIN (obstructive sleep apnea) (Chronic) GERD (gastroesophageal reflux disease) (Chronic) Anxiety disorder (Chronic) with panic attacks COPD (chronic obstructive pulmonary disease) (Chronic) History of coronary angioplasty (Chronic) Type II diabetes mellitus (Chronic) Medical History: Medical History (Last Reviewed 03/18/19 @ 21:59 by Kirti Solomon DO) S/P coronary artery stent placement (Chronic) Onset Date: ~11/07/18 Z95.5 PTCA/stent to mid RCA @ [facility] 10/18/01; PTCA/TAMI of the prox Diag #1, PTCA/TAMI of the prox LAD, PTCA/TAMI of the mid LCX 10/12/18; PTCA/TAMI to mid RCA and PTCA/TAMI to prox/ostial RCA 11/07/18 Atherosclerotic heart disease of [place] coronary artery without angina pectoris (Chronic) I25.10 Chest pain (Acute) R07.9 Chronic renal failure, stage 2 (mild) (Chronic) N18.2 CARLIN (obstructive sleep apnea) (Chronic) G47.33 GERD (gastroesophageal reflux disease) (Chronic) K21.9 Abnormal stress test (Acute) R94.39 Anxiety disorder (Chronic) F41.9 with panic attacks COPD (chronic obstructive pulmonary disease) (Chronic) J44.9 Type II diabetes mellitus (Chronic) E11.9 BPH (benign prostatic hyperplasia) N40.0 Former smoker Z87.891 quit in the early History of malignant neoplasm of lung Z85.118 in 2010? Allergies gabapentin Allergy (Unknown, Verified 04/11/19 03:04) Unknown acetylcysteine [From Mucomyst] Allergy (Verified 04/11/19 03:04) Shortness of breath alprazolam [From Xanax] Allergy (Verified 04/11/19 03:04) breathing issues belladonna alkaloids Allergy (Verified 04/11/19 03:04) Unknown cephalexin Allergy (Verified 04/11/19 03:04) Unknown ciprofloxacin [From Cipro] Allergy (Verified 04/11/19 03:04) Unknown dicyclomine Allergy (Verified 04/11/19 03:04) Unknown diltiazem Allergy (Verified 04/11/19 03:04) Unknown doxycycline Allergy (Verified 04/11/19 03:04) Shortness of breath ezetimibe Allergy (Verified 04/11/19 03:04) Unknown fluvastatin Allergy (Verified 04/11/19 03:04) Unknown metoprolol [From Toprol XL] Allergy (Verified 04/11/19 03:04) Unknown nitrofurantoin Allergy (Verified 04/11/19 03:04) Unknown phenobarbital Allergy (Verified 04/11/19 03:04) Unknown prochlorperazine [From Compazine] Allergy (Verified 04/11/19 03:04) Unknown simvastatin [From Zocor] Allergy (Verified 04/11/19 03:04) Unknown Nrsbjxm-Qsv-Bae Reductase Inhibitor Allergy (Verified 04/11/19 03:04) Unknown sulfamethoxazole [From Bactrim] Allergy (Verified 04/11/19 03:04) Unknown tamsulosin [From Flomax] Allergy (Verified 04/11/19 03:04) Unknown trimethoprim [From Bactrim] Allergy (Verified 04/11/19 03:04) Unknown carvedilol Adverse Reaction (Verified 04/11/19 03:04) Vomiting Home Medications: Ambulatory Orders Medication Instructions Recorded Aspirin [Aspirin, Baby] 81 mg PO DAILY@0800 11/13/15 Doxazosin Mesylate [Cardura] 4 mg PO QHS 11/13/15 Finasteride [Proscar] 5 mg PO DAILY 11/13/15 Mirtazapine [Remeron] 30 mg PO QHS 11/13/15 Theophylline [Kevin-Dur] 300 mg PO BID 11/13/15 prednisoLONE eye drops (1 mL) 1 drp RIGHT EYE 4X/DAY PRN PRN 11/13/15 [Pred Forte eye drops (1 mL)] Guaifenesin [Mucinex] 1,200 mg PO BID PRN 07/29/17 Albuterol Inhaler [Ventolin Hfa] 1 - 2 puff INHALATION Q4H PRN PRN 08/26/17 #1 inhaler Ipratropium/Albuterol Sulfate 3 ml INHALATION 4X/DAY PRN 03/11/18 [Duoneb] Nitroglycerin (INPATIENT USE) 0.4 mg SUBLINGUAL Q5M PRN 03/11/18 [Nitrostat] Roflumilast [Daliresp] 500 mcg PO DAILY 03/11/18 Furosemide [Lasix] 20 mg PO DAILY 10/10/18 Lorazepam [Ativan] 1 mg PO BID 10/27/18 primidone 50 mg tablet 50 mg PO BID tab 10/27/18 clopidogrel 75 mg tablet 75 mg PO DAILY #90 tab 11/08/18 losartan 25 mg tablet 12.5 mg PO DAILY #45 tab 11/08/18 digoxin 250 mcg (0.25 mg) tablet 125 mcg PO DAILY #30 tab 01/27/19 Fluticasone/Vilanterol [Breo 1 ea IH DAILY 03/26/19 Ellipta Inhaler] Pantoprazole Sodium 40 mg PO DAILY 03/26/19 Budesonide/Formoterol 160/4.5 2 puff INHALATION BID 04/11/19 [Symbicort 160/4.5 Mcg Inhaler (SP)] Escitalopram Oxalate [Lexapro] 10 mg PO DAILY 04/11/19 Surgical History: Surgical History (Last Reviewed 11/14/18 @ 13:23 by Yuko Dangelo) 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 BL upper lobes Presence of coronary angioplasty implant and graft Onset Date: ~11/07/18 Z95.5 PTCA/stent to mid RCA @ [facility] 10/18/01; PTCA/TAMI of the prox Diag #1, PTCA/TAMI of the prox LAD, PTCA/TAMI of the mid LCX 10/12/18; ; PTCA/TAMI to mid RCA and PTCA/TAMI to prox/ostial RCA 11/07/18 Surgical History: - - Lobectomy, cardiac stent placement Psychiatric History: Anxiety - With panic attacks Lives: [facility] Smoking Status: Never smoker - *Family History Maternal Family History: Family History (Last Reviewed 11/14/18 @ 13:23 by Yuko Dangelo) Mother CAD (coronary artery disease) Hypertension Brother CAD (coronary artery disease) Hypertension Other Heart disease History Items: Hypertension Paternal Family History: Family History (Last Reviewed 11/14/18 @ 13:23 by Yuko Dangelo) Mother CAD (coronary artery disease) Hypertension Brother CAD (coronary artery disease) Hypertension Other Heart disease History Items: - - father was a smoker with copd Review of Systems Constitutional: Denies: Chills, Fever, Weight Change HEENT: Denies: Head Aches, Sinus Congestion, Sinus Drainage Cardiovascular: Denies: Chest Pain, Palpitations Respiratory: Reports: Shortness of breath upon exertion. Denies: Cough, Shortness of breath at rest, Sputum production Gastrointestinal: Denies: Abdominal Pain, Nausea, Vomiting Genitourinary: Reports: Hematuria, Hesitancy, Retention, Urgency. Denies: Dysuria Musculoskeletal: Denies: Joint Pain, Joint Tenderness Skin: Denies: Rash, Wounds Neurological: Denies: Numbness, Tingling, Focal weakness Psychiatric: Denies: Anxiety, Depression, Homicidal Ideations, Suicidal Ideations Hematologic/ Lymphatic: Denies: Easy Bruising, Easy Bleeding VTE Information - Inpt Only VTE Present on Admission: No VTE Mechan Device Prophylaxis: SCD's VTE Pharm Prophylaxis ordered?: No Patient Problems: Active and Suspected Problems (Last Reviewed 03/18/19 @ 21:59 by Kirti Solomon DO) Hematuria (Acute) Acute urinary retention (Acute) - Physical Exam Vitals/I&O's: Vital Signs Temp Pulse Resp BP Pulse Ox 97.5 F L 86 18 120/62 96 04/11/19 03:05 04/11/19 05:06 04/11/19 05:06 04/11/19 05:06 04/11/19 05:06 Oxygen Delivery Method Room Air Weight: 158 lb 4.67 oz Body Mass Index (BMI) 26.3 Intake and Output for Last 24 Hours 04/09/19 04/10/19 04/11/19 23:59 23:59 23:59 Output Total 1000 / 1000 Balance -1000 / -1000 General: Alert, Oriented x3, Cooperative HEENT: Atraumatic, Normocephalic Neck: Supple Lungs: Diminished Cardiovascular: Regular rate, Normal S1, Normal S2, No murmurs Abdomen: Bowel Sounds Present, Soft, Non Tender Extremities: No edema Skin: No rashes Musculoskeletal: No Tenderness to Palpation of Joints or Extremities Neurological: Neuro grossly intact Psych/Mental Status: Normal Affect, Appropriate Laboratory Results 04/11/19 03:45: WBC 5.6, RBC 3.35 L, Hgb 9.9 L, Hct 29.2 L, MCV 87.2, MCH 29.6, MCHC 33.9, RDW Std Deviation 41.8, RDW Coeff of Ye 13.3, Plt Count 219, MPV 9.5, Immature Gran % (Auto) 0.700, Neut % (Auto) 69.1, Lymph % (Auto) 16.8 L, [place] % (Auto) 10.1 H, Eos % (Auto) 2.9, Baso % (Auto) 0.4, Absolute Neuts (auto) 3.8, Absolute Lymphs (auto) 0.93, Nucleated RBC % 0 04/11/19 03:45: Sodium 134 L, Potassium 3.1 L, Chloride 99, Carbon Dioxide 29.0, Anion Gap 6, BUN 11, Creatinine 0.82, Estim Creat Clear Calc 61.46, Est GFR (MDRD) Af Amer 115, Est GFR (MDRD) Non-Af 95, BUN/Creatinine Ratio 13.3, Glucose 136 H, Calcium 8.0 L 04/11/19 03:56: Urine Color Red, Urine Clarity Turbid, Urine pH 7.0, Ur Specific [place] 1.010, Urine Protein 500 H, Urine Glucose (UA) 50 H, Urine Ketones 15 H , Urine Occult Blood 250 H, Urine Nitrite Negative, Urine Bilirubin Negative, Urine Urobilinogen Normal, Ur Leukocyte Esterase 25 H, Urine RBC > 100 SEEN, Urine WBC 25-50 SEEN, Ur Squamous Epith Cells 0 SEEN, Urine Bacteria 0 SEEN, Urine Mucus 0 SEEN Assessment/Plan All Active Problems (Last Reviewed 03/18/19 @ 21:59 by Kirti Solomon DO) Acute respiratory failure with hypoxemia (Acute) Hematuria (Acute) Acute urinary retention (Acute) Chest pain (Acute) Abnormal stress test (Acute) Chronic Problems (Last Reviewed 03/18/19 @ 21:59 by Kirti Solomon DO) Acute exacerbation of chronic obstructive pulmonary disease (COPD) (Chronic) Respiratory distress (Chronic) S/P coronary artery stent placement (Chronic ~11/07/18) PTCA/stent to mid RCA @ [facility] 10/18/01; PTCA/TAMI of the prox Diag #1, PTCA/TAMI of the prox LAD, PTCA/TAMI of the mid LCX 10/12/18; PTCA/TAMI to mid RCA and PTCA/TAMI to prox/ostial RCA 11/07/18 Atherosclerotic heart disease of [place] coronary artery without angina pectoris (Chronic) Normochromic normocytic anemia (Chronic) Chronic renal failure, stage 2 (mild) (Chronic) CARLIN (obstructive sleep apnea) (Chronic) GERD (gastroesophageal reflux disease) (Chronic) Anxiety disorder (Chronic) with panic attacks COPD (chronic obstructive pulmonary disease) (Chronic) History of coronary angioplasty (Chronic) Type II diabetes mellitus (Chronic) Plan 1. Urinary retention/gross hematuria?consult urologist Dr. Burnette, monitor H&H levels, hold aspirin Plavix temporarily 2. Chronic obstructive pulmonary disease?DuoNeb breathing treatments every 4 hours as needed 3. GERD?continue routine medication 4. Diabetes?continue routine home medication 5. DVT prophylaxis?SCDs Code Visit Inpatient E&M: 06508 Init Hosp L3
--- NOTE | 2019-04-11 07:44 | CON.PCM_ITS ---
Problem List (1) Acute urinary retention Status: Acute Reason for Consult Date of Consultation: 04/11/19 Reason for Consultation: Acute urinary retention History of Present Illness: The patient is a 79 year old male known to my service who currently is in a jail had a catheter removed for voiding trial and failed to urinate catheter was replaced but then developed significant bleeding was brought to the hospital catheter was replaced irrigation catheter currently is on irrigation to irrigate out the blood clots he is failed a voiding trial was on maximal medical therapy. Last year I offered him intervention for his enlarged prostate but he refused. At this point use willing to have surgery to restore normal voiding and remove the catheter if possible. He has been on aspirin and Plavix and will have this on hold Past Medical History Past Medical History (Chronic Problems): Chronic Problems (Last Reviewed 03/18/19 @ 21:59 by Kirti Solomon DO) Acute exacerbation of chronic obstructive pulmonary disease (COPD) (Chronic) Respiratory distress (Chronic) S/P coronary artery stent placement (Chronic ~11/07/18) PTCA/stent to mid RCA @ [facility] 10/18/01; PTCA/TAMI of the prox Diag #1, PTCA/TAMI of the prox LAD, PTCA/TAMI of the mid LCX 10/12/18; PTCA/TAMI to mid RCA and PTCA/TAMI to prox/ostial RCA 11/07/18 Atherosclerotic heart disease of [place] coronary artery without angina pectoris (Chronic) Normochromic normocytic anemia (Chronic) Chronic renal failure, stage 2 (mild) (Chronic) CARLIN (obstructive sleep apnea) (Chronic) GERD (gastroesophageal reflux disease) (Chronic) Anxiety disorder (Chronic) with panic attacks COPD (chronic obstructive pulmonary disease) (Chronic) History of coronary angioplasty (Chronic) Type II diabetes mellitus (Chronic) Medical History: Medical History (Last Reviewed 03/18/19 @ 21:59 by Kirti Solomon DO) S/P coronary artery stent placement (Chronic) Onset Date: ~11/07/18 Z95.5 PTCA/stent to mid RCA @ [facility] 10/18/01; PTCA/TAMI of the prox Diag #1, PTCA/TAMI of the prox LAD, PTCA/TAMI of the mid LCX 10/12/18; PTCA/TAMI to mid RCA and PTCA/TAMI to prox/ostial RCA 11/07/18 Atherosclerotic heart disease of [place] coronary artery without angina pectoris (Chronic) I25.10 Chest pain (Acute) R07.9 Chronic renal failure, stage 2 (mild) (Chronic) N18.2 CARLIN (obstructive sleep apnea) (Chronic) G47.33 GERD (gastroesophageal reflux disease) (Chronic) K21.9 Abnormal stress test (Acute) R94.39 Anxiety disorder (Chronic) F41.9 with panic attacks COPD (chronic obstructive pulmonary disease) (Chronic) J44.9 Type II diabetes mellitus (Chronic) E11.9 BPH (benign prostatic hyperplasia) N40.0 Former smoker Z87.891 quit in the early History of malignant neoplasm of lung Z85.118 in 2010? Allergies gabapentin Allergy (Unknown, Verified 04/11/19 03:04) Unknown acetylcysteine [From Mucomyst] Allergy (Verified 04/11/19 03:04) Shortness of breath alprazolam [From Xanax] Allergy (Verified 04/11/19 03:04) breathing issues belladonna alkaloids Allergy (Verified 04/11/19 03:04) Unknown cephalexin Allergy (Verified 04/11/19 03:04) Unknown ciprofloxacin [From Cipro] Allergy (Verified 04/11/19 03:04) Unknown dicyclomine Allergy (Verified 04/11/19 03:04) Unknown diltiazem Allergy (Verified 04/11/19 03:04) Unknown doxycycline Allergy (Verified 04/11/19 03:04) Shortness of breath ezetimibe Allergy (Verified 04/11/19 03:04) Unknown fluvastatin Allergy (Verified 04/11/19 03:04) Unknown metoprolol [From Toprol XL] Allergy (Verified 04/11/19 03:04) Unknown nitrofurantoin Allergy (Verified 04/11/19 03:04) Unknown phenobarbital Allergy (Verified 04/11/19 03:04) Unknown prochlorperazine [From Compazine] Allergy (Verified 04/11/19 03:04) Unknown simvastatin [From Zocor] Allergy (Verified 04/11/19 03:04) Unknown Bdrvgvn-Tqa-Ddy Reductase Inhibitor Allergy (Verified 04/11/19 03:04) Unknown sulfamethoxazole [From Bactrim] Allergy (Verified 04/11/19 03:04) Unknown tamsulosin [From Flomax] Allergy (Verified 04/11/19 03:04) Unknown trimethoprim [From Bactrim] Allergy (Verified 04/11/19 03:04) Unknown carvedilol Adverse Reaction (Verified 04/11/19 03:04) Vomiting Home Medications: Ambulatory Orders Medication Instructions Recorded Aspirin [Aspirin, Baby] 81 mg PO DAILY@0800 11/13/15 Doxazosin Mesylate [Cardura] 4 mg PO QHS 11/13/15 Finasteride [Proscar] 5 mg PO DAILY 11/13/15 Mirtazapine [Remeron] 30 mg PO QHS 11/13/15 Theophylline [Kevin-Dur] 300 mg PO BID 11/13/15 prednisoLONE eye drops (1 mL) 1 drp RIGHT EYE 4X/DAY PRN PRN 11/13/15 [Pred Forte eye drops (1 mL)] Guaifenesin [Mucinex] 1,200 mg PO BID PRN 07/29/17 Albuterol Inhaler [Ventolin Hfa] 1 - 2 puff INHALATION Q4H PRN PRN 08/26/17 #1 inhaler Ipratropium/Albuterol Sulfate 3 ml INHALATION 4X/DAY PRN 03/11/18 [Duoneb] Nitroglycerin (INPATIENT USE) 0.4 mg SUBLINGUAL Q5M PRN 03/11/18 [Nitrostat] Roflumilast [Daliresp] 500 mcg PO DAILY 03/11/18 Furosemide [Lasix] 20 mg PO DAILY 10/10/18 Lorazepam [Ativan] 1 mg PO BID 10/27/18 primidone 50 mg tablet 50 mg PO BID tab 10/27/18 clopidogrel 75 mg tablet 75 mg PO DAILY #90 tab 11/08/18 losartan 25 mg tablet 12.5 mg PO DAILY #45 tab 11/08/18 digoxin 250 mcg (0.25 mg) tablet 125 mcg PO DAILY #30 tab 01/27/19 Fluticasone/Vilanterol [Breo 1 ea IH DAILY 03/26/19 Ellipta Inhaler] Pantoprazole Sodium 40 mg PO DAILY 03/26/19 Budesonide/Formoterol 160/4.5 2 puff INHALATION BID 04/11/19 [Symbicort 160/4.5 Mcg Inhaler (SP)] Escitalopram Oxalate [Lexapro] 10 mg PO DAILY 04/11/19 Surgical History: Surgical History (Last Reviewed 11/14/18 @ 13:23 by Yuko Dangelo) 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 BL upper lobes Presence of coronary angioplasty implant and graft Onset Date: ~11/07/18 Z95.5 PTCA/stent to mid RCA @ [facility] 10/18/01; PTCA/TAMI of the prox Diag #1, PTCA/TAMI of the prox LAD, PTCA/TAMI of the mid LCX 10/12/18; ; PTCA/TAMI to mid RCA and PTCA/TAMI to prox/ostial RCA 11/07/18 Surgical History: noncontributory, - - Lobectomy, cardiac stent placement Psychiatric History: Anxiety - With panic attacks Lives: [facility] Smoking Status: Never smoker - *Family History Maternal Family History: Family History (Last Reviewed 11/14/18 @ 13:23 by Yuko Dangelo) Mother CAD (coronary artery disease) Hypertension Brother CAD (coronary artery disease) Hypertension Other Heart disease History Items: Hypertension Paternal Family History: Family History (Last Reviewed 11/14/18 @ 13:23 by Yuko Dangelo) Mother CAD (coronary artery disease) Hypertension Brother CAD (coronary artery disease) Hypertension Other Heart disease History Items: - - father was a smoker with copd Review of Systems Constitutional: Denies: Chills, Fever, Weight Change HEENT: Denies: Head Aches, Sinus Congestion, Sinus Drainage Cardiovascular: Denies: Chest Pain, Palpitations Respiratory: Denies: Cough, Shortness of breath at rest, Sputum production Gastrointestinal: Denies: Abdominal Pain, Nausea, Vomiting Genitourinary: Denies: Dysuria Musculoskeletal: Denies: Joint Pain, Joint Tenderness Skin: Denies: Rash, Wounds Neurological: Denies: Numbness, Tingling, Focal weakness Psychiatric: Denies: Anxiety, Depression, Homicidal Ideations, Suicidal Ideations Hematologic/ Lymphatic: Denies: Easy Bruising, Easy Bleeding Physical Exam - Physical Exam Vital Signs Temp 97.6 F L 04/11/19 06:44 Pulse 97 04/11/19 06:44 Resp 18 04/11/19 06:44 BP 128/65 H 04/11/19 06:44 Pulse Ox 97 04/11/19 06:44 Intake & Output 04/09/19 04/10/19 04/11/19 23:59 23:59 23:59 Output Total 1000 / 1000 Balance -1000 / -1000 Weight: 67.54 kg Output: Urine 1000 / 1000 General: Alert, Oriented x3 HEENT: Atraumatic, PERRLA Oral: Moist Mucosa Neck: Supple Lungs: Normal air movement Cardiovascular: Regular rate, Regular Rhythm Abdomen: Soft, Obese Rectal: Exam deferred Laboratory Tests Past 24 Hrs 04/11/19 04/11/19 04/11/19 03:45 03:45 03:56 WBC 5.6 RBC 3.35 L Hgb 9.9 L Hct 29.2 L MCV 87.2 MCH 29.6 MCHC 33.9 RDW Std Deviation 41.8 RDW Coeff of Ye 13.3 Plt Count 219 MPV 9.5 Immature Gran % (Auto) 0.700 Neut % (Auto) 69.1 Lymph % (Auto) 16.8 L [place] % (Auto) 10.1 H Eos % (Auto) 2.9 Baso % (Auto) 0.4 Absolute Neuts (auto) 3.8 Absolute Lymphs (auto) 0.93 Nucleated RBC % 0 Sodium 134 L Potassium 3.1 L Chloride 99 Carbon Dioxide 29.0 Anion Gap 6 BUN 11 Creatinine 0.82 Estim Creat Clear Calc 61.46 Est GFR (MDRD) Af Amer 115 Est GFR (MDRD) Non-Af 95 BUN/Creatinine Ratio 13.3 Glucose 136 H Calcium 8.0 L Urine Color Red Urine Clarity Turbid Urine pH 7.0 Ur Specific [place] 1.010 Urine Protein 500 H Urine Glucose (UA) 50 H Urine Ketones 15 H Urine Occult Blood 250 H Urine Nitrite Negative Urine Bilirubin Negative Urine Urobilinogen Normal Ur Leukocyte Esterase 25 H Urine RBC > 100 SEEN Urine WBC 25-50 SEEN Ur Squamous Epith Cells 0 SEEN Urine Bacteria 0 SEEN Urine Mucus 0 SEEN Assessment/Plan All Active Problems (Last Reviewed 03/18/19 @ 21:59 by Kirti Solomon DO) Acute respiratory failure with hypoxemia (Acute) Hematuria (Acute) Acute urinary retention (Acute) Chest pain (Acute) Abnormal stress test (Acute) 79-year-old male with retention of urine BPH gross hematuria recent catheter was placed developed bleeding. For now we will continue with irrigation to keep the blood clots clear hold all aspirin and Plavix. He can have regular diet for now. Freed to ambulate if needed needed. We will put him on the surgical schedule for this Wednesday for a transurethral resection of the prostate he will need medical clearance.
[2019-04-11] MEDS: Budesonide Respules 0.5 MG/2 ML AMPUL.NEB. INHALATION ×2 (08:00→20:20)
[2019-04-11] MEDS: Albuterol 2.5 MG/3 ML VIAL.NEB. INHALATION ×3 (08:00→20:20)
[2019-04-11] MEDS: 0.9% Saline Lock 10 ML Syringe IV (08:18)
[2019-04-11] MEDS: 0.9% Normal Saline 1,000 ML 75 ML IV ×2 (08:18→21:18)
[2019-04-11] MEDS: Pantoprazole Sodium 40 MG Tablet PO (10:20)
[2019-04-11] MEDS: LORazepam 1 MG Tablet PO ×2 (10:20→21:19)
[2019-04-11] MEDS: Primidone 50 MG Tablet PO ×2 (10:21→21:19)
[2019-04-11] MEDS: Escitalopram Oxalate 10 MG Tablet PO (10:21)
[2019-04-11] MEDS: Furosemide 20 MG Tablet PO (10:21)
[2019-04-11] MEDS: Digoxin 125 MCG Tablet PO (10:22)
[2019-04-11] MEDS: Losartan Potassium 25 MG Tablet 12.5 MG PO (10:23)
[2019-04-11] MEDS: Finasteride 5 MG Tablet PO (10:23)
[2019-04-11] MEDS: guaiFENesin 1,200 MG Tablet 1200 MG PO ×2 (10:26→21:19)
--- NOTE | 2019-04-11 11:02 | CASEMGMT ---
Addendum entered by Alayna Stephens 04/11/19 14:27: SW received call from Susana at [facility] stating she will need to call the and ask if the will be paying for bed hold for pt. Susana to call this worker back. Original Note: Social Work Note Pt is listed as being from [facility]. Pt was discharged to [facility] 03/23/2019. SW met with pt and introduced self and role at [facility]. Pt is alert and orientated x3. Pt confirms that he came from [facility] and the plan is for pt to return. SW placed a call to Susana at [facility] and left message. SW faxed updated clinicals to [facility]. Plan: Return to [facility] Alayna Stephens [employer], [employer]IEF OF [employer]AF[employer] AND PROTECTION
--- NOTE | 2019-04-11 15:51 | PCM.PN.HOSP ---
Patient Problems: Active and Suspected Problems (Last Reviewed 03/18/19 @ 21:59 by Kirti Solomon DO) Hematuria (Acute) Acute urinary retention (Acute) Vitals/I&O's: Vital Signs Temp Pulse Resp BP Pulse Ox 98.1 F 106 H 20 H 107/53 L 94 04/11/19 12:55 04/11/19 12:55 04/11/19 14:05 04/11/19 12:55 04/11/19 12:55 Oxygen Delivery Method Room Air Weight: 148 lb 14.4 oz Body Mass Index (BMI) 24.0 Intake and Output for Last 24 Hours 04/09/19 04/10/19 04/11/19 23:59 23:59 23:59 Output Total 3700 / 3700 Balance -3700 / -3700 General: Alert, Oriented x3, Cooperative, No apparent distress HEENT: Atraumatic, PERRLA, EOMI, Normocephalic Oral: Moist Mucosa Neck: Supple, No JVD Lungs: Clear to auscultation, Normal air movement, No rhonchi, No wheeze, No rales, Diminished Cardiovascular: Regular rate, Regular Rhythm, Normal S1, Normal S2, No murmurs Abdomen: Soft, Non Tender, Non-Distended, No Hepato-splenomegaly Extremities: No edema, Capillary Refill Less than 3 Seconds Skin: No rashes, No breakdown Neurological: Neuro grossly intact, Sensory exam intact to light touch and pain Psych/Mental Status: Normal Affect, Appropriate Laboratory Results 04/11/19 03:45: WBC 5.6, RBC 3.35 L, Hgb 9.9 L, Hct 29.2 L, MCV 87.2, MCH 29.6, MCHC 33.9, RDW Std Deviation 41.8, RDW Coeff of Ye 13.3, Plt Count 219, MPV 9.5, Immature Gran % (Auto) 0.700, Neut % (Auto) 69.1, Lymph % (Auto) 16.8 L, [place] % (Auto) 10.1 H, Eos % (Auto) 2.9, Baso % (Auto) 0.4, Absolute Neuts (auto) 3.8, Absolute Lymphs (auto) 0.93, Nucleated RBC % 0 04/11/19 03:45: Sodium 134 L, Potassium 3.1 L, Chloride 99, Carbon Dioxide 29.0, Anion Gap 6, BUN 11, Creatinine 0.82, Estim Creat Clear Calc 61.46, Est GFR (MDRD) Af Amer 115, Est GFR (MDRD) Non-Af 95, BUN/Creatinine Ratio 13.3, Glucose 136 H, Calcium 8.0 L 04/11/19 03:56: Urine Color Red, Urine Clarity Turbid, Urine pH 7.0, Ur Specific [place] 1.010, Urine Protein 500 H, Urine Glucose (UA) 50 H, Urine Ketones 15 H, Urine Occult Blood 250 H, Urine Nitrite Negative, Urine Bilirubin Negative, Urine Urobilinogen Normal, Ur Leukocyte Esterase 25 H, Urine RBC > 100 SEEN, Urine WBC 25-50 SEEN, Ur Squamous Epith Cells 0 SEEN, Urine Bacteria 0 SEEN, Urine Mucus 0 SEEN Current Medications Albuterol Sulfate (Ventolin Aerosols) 2.5 mg INHALATION Q6HWA.RT [facility] Last Admin: 04/11/19 14:05 Dose: 2.5 mg Documented by: Albuterol/Ipratropium (Duoneb) 3 ml INHALATION 4X/DAY PRN PRN Reason: SOB &/OR WHEEZING Last Admin: 04/11/19 10:10 Dose: 3 ml Documented by: Aspirin (Aspirin, Baby) 81 mg PO DAILY@0800 [facility] Budesonide (Pulmicort Aerosol) 0.5 mg INHALATION Q12H.RT [facility] Last Admin: 04/11/19 08:00 Dose: 0.5 mg Documented by: Clopidogrel Bisulfate (Plavix) 75 mg PO DAILY [facility] Digoxin (Lanoxin) 125 mcg PO DAILY [facility] Last Admin: 04/11/19 10:22 Dose: 125 mcg Documented by: Doxazosin Mesylate (Cardura) 4 mg PO QHS [facility] Escitalopram Oxalate (Lexapro) 10 mg PO DAILY [facility] Last Admin: 04/11/19 10:21 Dose: 10 mg Documented by: Finasteride (Proscar) 5 mg PO DAILY [facility] Last Admin: 04/11/19 10:23 Dose: 5 mg Documented by: Furosemide (Lasix) 20 mg PO DAILY [facility] Last Admin: 04/11/19 10:21 Dose: 20 mg Documented by: Glucagon () 1 mg IM .X1 PRN PRN Reason: Hypoglycemia Guaifenesin (Mucinex) 1,200 mg PO BID PRN PRN PRN Reason: CONGESTION Last Admin: 04/11/19 10:26 Dose: 1,200 mg Documented by: Sodium Chloride () 1,000 mls @ 75 mls/hr IV .[id number] [facility] Last Admin: 04/11/19 08:18 Dose: 75 mls/hr Documented by: Dextrose (Dextrose 10%-Water) 250 mls @ 999 mls/hr IV .Q16M PRN; Protocol PRN Reason: HYPOGLYCEMIA Lorazepam (Ativan) 1 mg PO BID [facility] Last Admin: 04/11/19 10:20 Dose: 1 mg Documented by: Losartan Potassium (Cozaar) 12.5 mg PO DAILY [facility] Last Admin: 04/11/19 10:23 Dose: 12.5 mg Documented by: Mirtazapine (Remeron) 30 mg PO QHS [facility] Pantoprazole Sodium (Protonix) 40 mg PO DAILY [facility] Last Admin: 04/11/19 10:20 Dose: 40 mg Documented by: Prednisolone Acetate (Pred Forte Eye Drops (5 Ml)) 1 drop OPHTHALMIC 4X/DAY PRN PRN PRN Reason: Dry Eye Primidone (Mysoline) 50 mg PO BID [facility] Last Admin: 04/11/19 10:21 Dose: 50 mg Documented by: Sodium Chloride () 10 - 40 ml IV UD PRN PRN Reason: SALINE FLUSH Last Admin: 04/11/19 08:18 Dose: 10 ml Documented by: Theophylline (Elixophyllin) 320 mg PO BID [facility] STROKE Vital Signs/Narrative: Vital Signs Temp Pulse Resp BP Pulse Ox 04/11/19 14:05 20 H 04/11/19 12:55 98.1 F 106 H 18 107/53 L 94 Medical Necessity - Tobacco Use Smoking Status: Former smoker Assessment/Plan All Active Problems (Last Reviewed 03/18/19 @ 21:59 by Kirti Solomon DO) Acute respiratory failure with hypoxemia (Acute) Hematuria (Acute) Acute urinary retention (Acute) Chest pain (Acute) Abnormal stress test (Acute) 1. Urinary retention and hematuria -He is currently in a intermediate and had a Colvin removed however after was removed he could not void and therefore a new Colvin was placed however he had gross hematuria and was transferred to the ER -Appreciate urology input, plan is for cystoscopy on Wednesday -Continue with CBI -Hemoglobin was 9.9 today which is down a little bit from his baseline of 11 -We will continue to monitor -Unfortunately given his significant previous stenting history in November 2018, aspirin and Plavix cannot be discontinued -Continue with finasteride and doxazosin 2. COPD -Not currently in exacerbation -Continue with his home inhalers and his theophylline -We will obtain a theophylline level 3. HTN/HLD/CAD status post 5 stents in October and November 2018 -Pressure stable, will continue with his home digoxin, losartan and Lasix -He is allergic to statins -We will continue his aspirin and Plavix as these cannot and will not be discontinued for minimum of 12 months 4. Depression/anxiety -Stable -Continue with Lexapro, Remeron 5. GERD -Stable -Continue with PPI DVT: SCDs
[2019-04-11] MEDS: Doxazosin 4 MG Tablet PO (21:19)
[2019-04-11] MEDS: Mirtazapine 30 MG Tablet PO (21:19)
[2019-04-12] VITALS (14 sets, daily range): BP systolic 123–137; BP diastolic 58–74; PULSE 57–120; RESP 18–20; TEMP 36.3–36.8; O2SAT 93–98
[2019-04-12] MEDS: Ipratropium/Albuterol Sulfate 3 ML AMPUL.NEB INHALATION ×5 (00:45→21:38)
[2019-04-12 05:16] LABS: Absolute Lymphocyte Count 1.11 X10^3/uL (0.83-4.51); Absolute Neutrophil Count 2.3 X10^3/uL (2.0-7.7); Basophil# 0.02 X10^3/uL; Basophil% 0.5 % (0-1); Eosinophil# 0.16 X10^3/uL; Eosinophils% 3.8 % (0-5); Hematocrit 28.8 % (40-54); Hemoglobin 9.5 g/dL (13.0-16.5); Lymphocyte # 1.11 X10^3/ul (4.0); Lymphocyte % 26.7 % (19-41); Mean Corpuscular Hgb 28.9 pg (27.0-32.0); Mean Corpuscular Volume 87.5 fL (80-94); Mean Platelet Vol. 9.8 fl (6.2-12.0); Monocyte# 0.48 X10^3/uL; Monocyte% 11.5 % (0-10); NRBC Flagged by Analyzer 0 % (0-5); Neutrophil # 2.34 X10^3/uL (2.7-7.7); Neutrophil % 56.3 % (47-70); Platelet Count 230 K/mm3 (150-450); RBC Distribution Width CV 13.5 % (11.6-14.6); RBC Distribution Width SD 43.2 fl (35.1-43.9); Red Blood Count 3.29 M/mm3 (4.6-6.2); White Blood Count 4.2 K/mm3 (4.4-11.0)
[2019-04-12 05:34] LABS: Anion Gap 6 (5-15); BUN 10 mg/dL (7-18); BUN/Creat Ratio 13.6 RATIO (10-20); Calcium,Total 7.8 mg/dL (8.5-10.1); Chloride 104 mmol/L (98-107); Creatinine, Serum 0.74 mg/dL (0.70-1.30); EST Glomerular Filtration Rate 108 mL/min (>60); Est Glom Filt Rate - Afr Amer 131 mL/min (>60); Estimated Creatinine Clearance 52.28 ml/min; Glucose 123 mg/dL (74-106); Potassium 2.9 mmol/L (3.5-5.1); Sodium Level 138 mmol/L (136-145)
[2019-04-12] MEDS: Budesonide Respules 0.5 MG/2 ML AMPUL.NEB. INHALATION (07:04)
[2019-04-12] MEDS: Albuterol 2.5 MG/3 ML VIAL.NEB. INHALATION ×3 (07:04→18:52)
[2019-04-12] MEDS: Escitalopram Oxalate 10 MG Tablet PO (09:07)
[2019-04-12] MEDS: Furosemide 20 MG Tablet PO (09:07)
[2019-04-12] MEDS: Aspirin 81 MG TAB.CHEW PO (09:07)
[2019-04-12] MEDS: LORazepam 1 MG Tablet PO ×2 (09:07→21:12)
[2019-04-12] MEDS: Pantoprazole Sodium 40 MG Tablet PO (09:07)
[2019-04-12] MEDS: Finasteride 5 MG Tablet PO (09:07)
[2019-04-12] MEDS: Losartan Potassium 25 MG Tablet 12.5 MG PO (09:07)
[2019-04-12] MEDS: guaiFENesin 1,200 MG Tablet 1200 MG PO ×2 (09:07→21:23)
[2019-04-12] MEDS: Clopidogrel Bisulfate 75 MG Tablet PO (09:07)
[2019-04-12] MEDS: Digoxin 125 MCG Tablet PO (09:08)
[2019-04-12] MEDS: Primidone 50 MG Tablet PO ×2 (09:08→21:13)
[2019-04-12] MEDS: predniSONE 20 MG Tablet 40 MG PO (10:05)
--- NOTE | 2019-04-12 10:40 | CASEMGMT ---
Addendum entered by Alayna Stephens 04/12/19 11:51: LEONARDO received message from Susana at [facility] stating pt's is not paying for bed hold but they do anticipate pt will be returning to [facility] at discharge. Susana states she just would like updated clinicals. LEONARDO faxed clinicals to [facility]. Plan: Return to [facility] once medically cleared Original Note: Social Work Note LEONARDO called Susana at [facility] and left message asking if she spoke with pt's about bed hold days and if pt is able to return to [facility] once medically cleared. LEONARDO informed Susana that pt will likely be at [facility] till at least Wednesday as pt is having surgery with Dr. Burnette. SW waiting for call back. Alayna Stephens INTERNET MARKETING MANAGER, [employer]
--- NOTE | 2019-04-12 11:18 | PCM.PN.HOSP ---
Patient Problems: Active and Suspected Problems (Last Reviewed 03/18/19 @ 21:59 by Kirti Solomon DO) Hematuria (Acute) Acute urinary retention (Acute) Subjective: Complaining of shortness of breath overnight, otherwise feels about the same. Still has some light blood-tinged urine in the Colvin. Vitals/I&O's: Vital Signs Temp Pulse Resp BP Pulse Ox 97.8 F 90 18 123/59 H 93 04/12/19 08:54 04/12/19 09:08 04/12/19 08:54 04/12/19 08:54 04/12/19 08:54 Oxygen Delivery Method Room Air Weight: 148 lb 14.4 oz Body Mass Index (BMI) 24.0 Intake and Output for Last 24 Hours 04/10/19 04/11/19 04/12/19 23:59 23:59 23:59 Intake Total 975 / 975 1613.75 / 1613.75 Output Total 5250 / 5250 2100 / 2100 Balance -4275 / -4275 -486.25 / -486.25 General: Alert, Oriented x3, Cooperative, No apparent distress HEENT: Atraumatic, PERRLA, EOMI, Normocephalic Oral: Moist Mucosa Neck: Supple, No JVD Lungs: poor air movement, No rhonchi, very minimal wheezing, No rales, Diminished Cardiovascular: Regular rate, Regular Rhythm, Normal S1, Normal S2, No murmurs Abdomen: Soft, Non Tender, Non-Distended, No Hepato-splenomegaly Extremities: No edema, Capillary Refill Less than 3 Seconds Skin: No rashes, No breakdown Neurological: Neuro grossly intact, Sensory exam intact to light touch and pain Psych/Mental Status: Normal Affect, Appropriate Microbiology Past 72 Hours 04/11/19 03:56 Urine Catheter - Catheter Urine Culture - Preliminary Staphylococcus aureus Laboratory Results 04/12/19 04:50: WBC 4.2 L, RBC 3.29 L, Hgb 9.5 L, Hct 28.8 L, MCV 87.5, MCH 28.9, MCHC 33.0, RDW Std Deviation 43.2, RDW Coeff of Ye 13.5, Plt Count 230, MPV 9.8, Immature Gran % (Auto) 1.200 H, Neut % (Auto) 56.3, Lymph % (Auto) 26.7, [place] % (Auto) 11.5 H, Eos % (Auto) 3.8, Baso % (Auto) 0.5, Absolute Neuts (auto) 2.3, Absolute Lymphs (auto) 1.11, Nucleated RBC % 0 04/12/19 04:50: Sodium 138, Potassium 2.9 L, Chloride 104, Carbon Dioxide 28.0, Anion Gap 6, BUN 10, Creatinine 0.74, Estim Creat Clear Calc 52.28, Est GFR (MDRD) Af Amer 131, Est GFR (MDRD) Non-Af 108, BUN/Creatinine Ratio 13.6, Glucose 123 H, Calcium 7.8 L Current Medications Albuterol Sulfate (Ventolin Aerosols) 2.5 mg INHALATION Q6HWA.RT [facility] Last Admin: 04/12/19 07:04 Dose: 2.5 mg Documented by: Albuterol/Ipratropium (Duoneb) 3 ml INHALATION 4X/DAY PRN PRN Reason: SOB &/OR WHEEZING Last Admin: 04/12/19 09:13 Dose: 3 ml Documented by: Aspirin (Aspirin, Baby) 81 mg PO DAILY@0800 [facility] Last Admin: 04/12/19 09:07 Dose: 81 mg Documented by: Clopidogrel Bisulfate (Plavix) 75 mg PO DAILY [facility] Last Admin: 04/12/19 09:07 Dose: 75 mg Documented by: Digoxin (Lanoxin) 125 mcg PO DAILY [facility] Last Admin: 04/12/19 09:08 Dose: 125 mcg Documented by: Doxazosin Mesylate (Cardura) 4 mg PO QHS [facility] Last Admin: 04/11/19 21:19 Dose: 4 mg Documented by: Escitalopram Oxalate (Lexapro) 10 mg PO DAILY [facility] Last Admin: 04/12/19 09:07 Dose: 10 mg Documented by: Finasteride (Proscar) 5 mg PO DAILY [facility] Last Admin: 04/12/19 09:07 Dose: 5 mg Documented by: Furosemide (Lasix) 20 mg PO DAILY [facility] Last Admin: 04/12/19 09:07 Dose: 20 mg Documented by: Glucagon () 1 mg IM .X1 PRN PRN Reason: Hypoglycemia Guaifenesin (Mucinex) 1,200 mg PO BID PRN PRN PRN Reason: CONGESTION Last Admin: 04/12/19 09:07 Dose: 1,200 mg Documented by: Dextrose (Dextrose 10%-Water) 250 mls @ 999 mls/hr IV .Q16M PRN; Protocol PRN Reason: HYPOGLYCEMIA Lorazepam (Ativan) 1 mg PO BID [facility] Last Admin: 04/12/19 09:07 Dose: 1 mg Documented by: Losartan Potassium (Cozaar) 12.5 mg PO DAILY [facility] Last Admin: 04/12/19 09:07 Dose: 12.5 mg Documented by: Mirtazapine (Remeron) 30 mg PO QHS [facility] Last Admin: 04/11/19 21:19 Dose: 30 mg Documented by: Pantoprazole Sodium (Protonix) 40 mg PO DAILY [facility] Last Admin: 04/12/19 09:07 Dose: 40 mg Documented by: Prednisolone Acetate (Pred Forte Eye Drops (5 Ml)) 1 drop OPHTHALMIC 4X/DAY PRN PRN PRN Reason: Dry Eye Prednisone () 40 mg PO DAILY@0800 [facility] Last Admin: 04/12/19 10:05 Dose: 40 mg Documented by: Primidone (Mysoline) 50 mg PO BID [facility] Last Admin: 04/12/19 09:08 Dose: 50 mg Documented by: Sodium Chloride () 10 - 40 ml IV UD PRN PRN Reason: SALINE FLUSH Last Admin: 04/11/19 08:18 Dose: 10 ml Documented by: Theophylline (Elixophyllin) 320 mg PO BID [facility] Last Admin: 04/12/19 09:09 Dose: 320 mg Documented by: STROKE Vital Signs/Narrative: Vital Signs Temp Pulse Resp BP Pulse Ox 04/12/19 09:08 90 04/12/19 08:54 97.8 F 108 H 18 123/59 H 93 Medical Necessity - Tobacco Use Smoking Status: Former smoker Assessment/Plan All Active Problems (Last Reviewed 03/18/19 @ 21:59 by Kirti Solomon DO) Acute respiratory failure with hypoxemia (Acute) Hematuria (Acute) Acute urinary retention (Acute) Chest pain (Acute) Abnormal stress test (Acute) 1. Urinary retention and hematuria -He is currently in a senior living and had a Colvin removed however after was removed he could not void and therefore a new Colvin was placed however he had gross hematuria and was transferred to the ER -Appreciate urology input, plan is for cystoscopy on Wednesday -Continue with CBI -Hemoglobin was 9.9 admission which is down a little bit from his baseline of 11 -We will continue to monitor -Unfortunately given his significant previous stenting history in November 2018, aspirin and Plavix cannot be discontinued -Continue with finasteride and doxazosin -Urine cultures obtained for slightly abnormal UA, it is growing 1000-10,000 CFU's of staph aureus, will not treat if this is likely contaminant 2. COPD -He has diminished lung sounds as well as mild wheezing and is a sensation of feeling short of breath -Continue with his home inhalers and his theophylline, will start him on daily prednisone -We will obtain a theophylline level 3. HTN/HLD/CAD status post 5 stents in October and November 2018 -Pressure stable, will continue with his home digoxin, losartan and Lasix -He is allergic to statins -We will continue his aspirin and Plavix as these cannot and will not be discontinued for minimum of 12 months -An EKG and a chest x-ray, and if these are normal he is likely low risk from a cardiac standpoint 4. Depression/anxiety -Stable -Continue with Lexapro, Remeron 5. GERD -Stable -Continue with PPI DVT: SCDs Code Visit Inpatient E&M: 48726 Subs Hosp L2
--- NOTE | 2019-04-12 11:21 | EKG12_ITS ---
Test Reason : Blood Pressure : / mmHG Vent. Rate : 113 BPM Atrial Rate : 113 BPM P-R Int : 130 ms QRS Dur : 090 ms QT Int : 310 ms P-R-T Axes : 090 084 060 degrees QTc Int : 425 ms Sinus tachycardia with occasional Premature ventricular complexes and Fusion complexes Low voltage QRS Borderline ECG When compared with ECG of 18-MAR-2019 20:20, Fusion complexes are now Present Premature ventricular complexes are now Present Confirmed by CARMEN STOUT, CHAYITO ([id number]), metropolitan editor HEATHER PENA ([id number]) on 04/14/2019 1:23:27 PM Referred By: NASEEM Confirmed By:LEAH MORALES MD
--- NOTE | 2019-04-12 11:21 | RAD_ITS ---
We are attempting to reach an attending provider to discuss findings. An addendum with communication details will be sent when the communication is complete. STUDY: X-RAY CHEST REASON FOR EXAM: Male, 79 years old. SOB, HEMATURIA, COPD TECHNIQUE: PA and lateral views of the chest. COMPARISON: 03/19/2019. FINDINGS: Extensive postsurgical changes are seen throughout both lungs with evidence of architectural distortion and heterogeneous lung density. Increased density within the left perihilar lung is nonspecific. Irregularity at the right apex is difficult to characterize and may represent postsurgical changes or capping. A small pneumothorax cannot be entirely excluded. Aortic knob is atherosclerotic. Cardiac silhouette is unremarkable. Osseous structures appear grossly intact. RAD/Chest PA and Lateral IMPRESSION: Extensive postsurgical changes. Increased density within the left perihilar lung is nonspecific but may represent atelectasis versus pneumonia as clinically indicated. Irregularity at the right apex is difficult to characterize and may represent postsurgical changes or capping. A small pneumothorax cannot be entirely excluded. Consider chest CT as clinically indicated. Electronically Signed: Chris Andrews, at 20:32 EST Tel , Service support ,
[2019-04-12 12:49] LABS: Theophylline (Aminophylline) 12.2 ug/mL (10.0-20.0)
--- NOTE | 2019-04-12 14:22 | PCM.CONS.B ---
Problem List (1) Acute urinary retention Status: Acute - Consult Date of Consult: 04/12/19 - Reason for Consult 79-year-old male retention of urine for surgery this Wednesday he will need to have his aspirin Plavix stopped, put a hold on his aspirin Plavix for now otherwise I will not be able to perform his surgery.
[2019-04-12] MEDS: Lidocaine Jelly 2% 20 ML Syringe (URO-JET) 20 APPLIC TOPICAL (16:52)
[2019-04-12] MEDS: Mirtazapine 30 MG Tablet PO (21:13)
[2019-04-12] MEDS: Doxazosin 4 MG Tablet PO (21:13)
[2019-04-13] VITALS (12 sets, daily range): BP systolic 113–134; BP diastolic 65–75; PULSE 100–112; RESP 16–22; TEMP 35.7–36.7; O2SAT 94–97; BMI 23.9
[2019-04-13] MEDS: Ipratropium/Albuterol Sulfate 3 ML AMPUL.NEB INHALATION ×4 (03:41→22:08)
[2019-04-13 06:05] LABS: Absolute Lymphocyte Count 1.24 X10^3/uL (0.83-4.51); Absolute Neutrophil Count 4.6 X10^3/uL (2.0-7.7); Basophil# 0.04 X10^3/uL; Basophil% 0.6 % (0-1); Eosinophil# 0.16 X10^3/uL; Eosinophils% 2.3 % (0-5); Hematocrit 26.4 % (40-54); Hemoglobin 8.6 g/dL (13.0-16.5); Lymphocyte # 1.24 X10^3/ul (4.0); Lymphocyte % 18.2 % (19-41); Mean Corp Hgb Conc 32.6 g/dL (32-36); Mean Corpuscular Hgb 28.7 pg (27.0-32.0); Mean Platelet Vol. 10.1 fl (6.2-12.0); Monocyte# 0.69 X10^3/uL; Monocyte% 10.1 % (0-10); NRBC Flagged by Analyzer 0 % (0-5); Neutrophil # 4.61 X10^3/uL (2.7-7.7); Neutrophil % 67.8 % (47-70); Platelet Count 292 K/mm3 (150-450); RBC Distribution Width CV 13.8 % (11.6-14.6); RBC Distribution Width SD 44.4 fl (35.1-43.9); White Blood Count 6.8 K/mm3 (4.4-11.0)
[2019-04-13 06:14] LABS: Anion Gap 5 (5-15); BUN 11 mg/dL (7-18); BUN/Creat Ratio 13.2 RATIO (10-20); Calcium,Total 8.2 mg/dL (8.5-10.1); Chloride 109 mmol/L (98-107); Creatinine, Serum 0.83 mg/dL (0.70-1.30); EST Glomerular Filtration Rate 94 mL/min (>60); Est Glom Filt Rate - Afr Amer 114 mL/min (>60); Estimated Creatinine Clearance 62.99 ml/min; Glucose 99 mg/dL (74-106); Potassium 3.4 mmol/L (3.5-5.1); Sodium Level 141 mmol/L (136-145)
[2019-04-13] MEDS: Albuterol 2.5 MG/3 ML VIAL.NEB. INHALATION ×2 (07:15→19:10)
--- NOTE | 2019-04-13 07:38 | PCM.CONS.B ---
Problem List (1) Acute urinary retention Status: Acute - Consult Date of Consult: 04/13/19 - Reason for Consult 79-year-old male presents the hospital with gross hematuria urinary retention, originally was planning for a TURP but reviewed case with cardiology and the patient had recent to new drug-eluting stents and has had a total of 5 stents he is a high risk for cardiac. Because of this we would not be able to stop his aspirin Plavix and because of this I will not be able to do a TURP however will plan to taken to surgery tomorrow for diagnostic cystoscopy ultrasound of the prostate he will then be able to go home tomorrow with a catheter and will set him up for an outpatient UroLift which can be done under blood thinners. Spoke to the patient regarding the change in plans he understands why we cannot do the surgery will set him up for diagnostic work-up tomorrow and an outpatient procedure for his retention.
--- NOTE | 2019-04-13 09:08 | CT_ITS ---
STUDY: CT CHEST WITH CONTRAST REASON FOR EXAM: Male, 79 years old. PERIHILAR MASS, SOB, COPD, CAD-2 STENTS, BPH, RENAL FAILURE STAGE 2, LUNG CA-LOBECTOMY RADIATION DOSAGE (If Supplied By Facility): CTDIvol = ( 9.52 ) mGy, DLP = ( 415.63 ) mGycm TECHNIQUE: Transaxial imaging was performed following intravenous administration of IV 100ML ISOVUE 300. Individualized dose optimization techniques were used for this CT. COMPARISON: 07/22/2018 FINDINGS: Severe emphysematous changes. No noncalcified nodule or mass. Bilateral linear scarring. Small left pleural effusion. There is a moderate pericardial effusion. Normal mediastinum. Normal hilar regions. Normal enhanced pulmonary arteries. There is atherosclerotic calcification of the aortic arch with tortuosity and elongation of the aortic arch and descending thoracic aorta. Normal osseous structures. Multiple hepatic cysts. Small right adrenal gland adenoma which is unchanged. CT/Chest WITH Contrast IMPRESSION: 1. Severe emphysema but no pneumonia, atelectasis, nodule, or mass. 2. Small left pleural effusion. 3. Moderate pericardial effusion. Electronically Signed: Julio Villeda MD at 11:00 EST Tel , Service support ,
[2019-04-13] MEDS: guaiFENesin 1,200 MG Tablet 1200 MG PO ×2 (09:15→21:49)
[2019-04-13] MEDS: LORazepam 1 MG Tablet PO ×2 (09:15→21:15)
[2019-04-13] MEDS: Furosemide 20 MG Tablet PO (09:15)
[2019-04-13] MEDS: predniSONE 20 MG Tablet 40 MG PO (09:15)
[2019-04-13] MEDS: Finasteride 5 MG Tablet PO (09:16)
[2019-04-13] MEDS: Losartan Potassium 25 MG Tablet 12.5 MG PO (09:16)
[2019-04-13] MEDS: Aspirin 81 MG TAB.CHEW PO (09:17)
[2019-04-13] MEDS: Clopidogrel Bisulfate 75 MG Tablet PO (09:17)
[2019-04-13] MEDS: Primidone 50 MG Tablet PO ×2 (09:17→21:15)
[2019-04-13] MEDS: Pantoprazole Sodium 40 MG Tablet PO (09:17)
[2019-04-13] MEDS: Escitalopram Oxalate 10 MG Tablet PO (09:17)
[2019-04-13] MEDS: Digoxin 125 MCG Tablet PO (09:17)
--- NOTE | 2019-04-13 10:02 | PCM.PN.HOSP ---
Patient Problems: Active and Suspected Problems (Last Reviewed 03/18/19 @ 21:59 by Kirti Solomon DO) Hematuria (Acute) Acute urinary retention (Acute) Subjective: Feeling well, looks like his urine is cleaned up in the hematuria. Shortness of breath has resolved as well Vitals/I&O's: Vital Signs Temp Pulse Resp BP Pulse Ox 98.1 F 100 18 113/65 95 04/13/19 09:12 04/13/19 09:17 04/13/19 09:12 04/13/19 09:12 04/13/19 09:12 Oxygen Delivery Method Room Air Weight: 148 lb 14.4 oz Body Mass Index (BMI) 24.0 Intake and Output for Last 24 Hours 04/11/19 04/12/19 04/13/19 23:59 23:59 23:59 Intake Total 975 / 975 1613.75 / 1863.75 550 / 550 Output Total 5250 / 5250 3400 / 3400 Balance -4275 / -4275 -1786.25 / -1536.25 550 / 550 General: Alert, Oriented x3, Cooperative, No apparent distress HEENT: Atraumatic, PERRLA, EOMI, Normocephalic Oral: Moist Mucosa Neck: Supple, No JVD Lungs: Clear to auscultation bilaterally, poor air movement, No rhonchi, no wheezing, No rales, Diminished Cardiovascular: Regular rate, Regular Rhythm, Normal S1, Normal S2, No murmurs Abdomen: Soft, Non Tender, Non-Distended, No Hepato-splenomegaly Extremities: No edema, Capillary Refill Less than 3 Seconds Skin: No rashes, No breakdown Neurological: Neuro grossly intact, Sensory exam intact to light touch and pain Psych/Mental Status: Normal Affect, Appropriate Microbiology Past 72 Hours 04/11/19 03:56 Urine Catheter - Catheter Urine Culture - Final Meth. resistant Staph. aureus Laboratory Results 04/12/19 11:38: Theophylline 12.2 04/13/19 05:16: WBC 6.8, RBC 3.00 L, Hgb 8.6 L, Hct 26.4 L, MCV 88.0, MCH 28.7, MCHC 32.6, RDW Std Deviation 44.4 H, RDW Coeff of Ye 13.8, Plt Count 292, MPV 10.1, Immature Gran % (Auto) 1.000 H, Neut % (Auto) 67.8, Lymph % (Auto) 18.2 L, [place] % (Auto) 10.1 H, Eos % (Auto) 2.3, Baso % (Auto) 0.6, Absolute Neuts (auto) 4.6, Absolute Lymphs (auto) 1.24, Nucleated RBC % 0 04/13/19 05:16: Sodium 141, Potassium 3.4 L, Chloride 109 H, Carbon Dioxide 27.0, Anion Gap 5, BUN 11, Creatinine 0.83, Estim Creat Clear Calc 62.99, Est GFR (MDRD) Af Amer 114, Est GFR (MDRD) Non-Af 94, BUN/Creatinine Ratio 13.2, Glucose 99, Calcium 8.2 L Current Medications Albuterol Sulfate (Ventolin Aerosols) 2.5 mg INHALATION Q6HWA.RT [facility] Last Admin: 04/13/19 07:15 Dose: 2.5 mg Documented by: Albuterol/Ipratropium (Duoneb) 3 ml INHALATION 4X/DAY PRN PRN Reason: SOB &/OR WHEEZING Last Admin: 04/13/19 03:41 Dose: 3 ml Documented by: Aspirin (Aspirin, Baby) 81 mg PO DAILY@0800 [facility] Last Admin: 04/13/19 09:17 Dose: 81 mg Documented by: Clopidogrel Bisulfate (Plavix) 75 mg PO DAILY [facility] Last Admin: 04/13/19 09:17 Dose: 75 mg Documented by: Digoxin (Lanoxin) 125 mcg PO DAILY [facility] Last Admin: 04/13/19 09:17 Dose: 125 mcg Documented by: Doxazosin Mesylate (Cardura) 4 mg PO QHS [facility] Last Admin: 04/12/19 21:13 Dose: 4 mg Documented by: Escitalopram Oxalate (Lexapro) 10 mg PO DAILY [facility] Last Admin: 04/13/19 09:17 Dose: 10 mg Documented by: Finasteride (Proscar) 5 mg PO DAILY [facility] Last Admin: 04/13/19 09:16 Dose: 5 mg Documented by: Furosemide (Lasix) 20 mg PO DAILY [facility] Last Admin: 04/13/19 09:15 Dose: 20 mg Documented by: Glucagon () 1 mg IM .X1 PRN PRN Reason: Hypoglycemia Guaifenesin (Mucinex) 1,200 mg PO BID PRN PRN PRN Reason: CONGESTION Last Admin: 04/13/19 09:15 Dose: 1,200 mg Documented by: Dextrose (Dextrose 10%-Water) 250 mls @ 999 mls/hr IV .Q16M PRN; Protocol PRN Reason: HYPOGLYCEMIA Lorazepam (Ativan) 1 mg PO BID [facility] Last Admin: 04/13/19 09:15 Dose: 1 mg Documented by: Losartan Potassium (Cozaar) 12.5 mg PO DAILY [facility] Last Admin: 04/13/19 09:16 Dose: 12.5 mg Documented by: Mirtazapine (Remeron) 30 mg PO QHS [facility] Last Admin: 04/12/19 21:13 Dose: 30 mg Documented by: Pantoprazole Sodium (Protonix) 40 mg PO DAILY [facility] Last Admin: 04/13/19 09:17 Dose: 40 mg Documented by: Prednisolone Acetate (Pred Forte Eye Drops (5 Ml)) 1 drop OPHTHALMIC 4X/DAY PRN PRN PRN Reason: Dry Eye Prednisone () 40 mg PO DAILY@0800 [facility] Last Admin: 04/13/19 09:15 Dose: 40 mg Documented by: Primidone (Mysoline) 50 mg PO BID [facility] Last Admin: 04/13/19 09:17 Dose: 50 mg Documented by: Sodium Chloride () 10 - 40 ml IV UD PRN PRN Reason: SALINE FLUSH Last Admin: 04/11/19 08:18 Dose: 10 ml Documented by: Theophylline (Elixophyllin) 320 mg PO BID [facility] Last Admin: 04/13/19 09:18 Dose: 320 mg Documented by: STROKE Vital Signs/Narrative: Vital Signs Temp Pulse Resp BP Pulse Ox 04/13/19 09:17 100 04/13/19 09:12 98.1 F 110 H 18 113/65 95 04/13/19 07:15 112 H 20 H 94 Medical Necessity - Tobacco Use Smoking Status: Former smoker Assessment/Plan All Active Problems (Last Reviewed 03/18/19 @ 21:59 by Kirti Solomon DO) Acute respiratory failure with hypoxemia (Acute) Hematuria (Acute) Acute urinary retention (Acute) Chest pain (Acute) Abnormal stress test (Acute) 1. Urinary retention and hematuria -He is currently in a custodial and had a Colvin removed however after was removed he could not void and therefore a new Colvin was placed however he had gross hematuria and was transferred to the ER -Appreciate urology input, plan is for cystoscopy on Wednesday -Continue with CBI -Hemoglobin was 9.9 admission which is down a little bit from his baseline of 11 -We will continue to monitor -Unfortunately given his significant previous stenting history in November 2018, aspirin and Plavix cannot be discontinued -Continue with finasteride and doxazosin -Urine cultures obtained for slightly abnormal UA, it is growing 1000-10,000 CFU's of staph aureus, will not treat since this is a likely contaminant 2. COPD -He has diminished lung sounds -Continue with his home inhalers and his theophylline, will start him on daily prednisone -Theophylline level was 12.2 3. HTN/HLD/CAD status post 5 stents in October and November 2018 -Pressure stable, will continue with his home digoxin, losartan and Lasix -He is allergic to statins -We will continue his aspirin and Plavix as these cannot and will not be discontinued for minimum of 12 months 4. Depression/anxiety -Stable -Continue with Lexapro, Remeron 5. GERD -Stable -Continue with PPI 6. Abnormal chest x-ray -X-ray was read as a possibility of a pneumothorax as well as a perihilar mass, will obtain a CT scan of his chest for further clarification DVT: SCDs Code Visit Inpatient E&M: 71952 Subs Hosp L2
--- NOTE | 2019-04-13 10:03 | PCM.CONS.C ---
Problem List (1) S/P coronary artery stent placement Status: Chronic Comment: PTCA/stent to mid RCA @ [facility] 10/18/01; PTCA/TAMI of the prox Diag #1, PTCA/TAMI of the prox LAD, PTCA/TAMI of the mid LCX 10/12/18; PTCA/TAMI to mid RCA and PTCA/TAMI to prox/ostial RCA 11/07/18 (2) Atherosclerotic heart disease of [place] coronary artery without angina pectoris Status: Chronic Qualifiers: [place] vs. transplanted heart: [place] heart Qualified Code(s): I25.10 - Atherosclerotic heart disease of [place] coronary artery without angina pectoris Reason for Consult Date of Consultation: 04/13/19 History of Present Illness: The patient is a 79 year old M [That presented to the emergency room for urinary retention and hematuria. He was evaluated by urology, initially they wanted to proceed with with a TURP however because patient recently had stenting done this is now changed to a diagnostic cystoscopy ultrasound of the prostate is scheduled for tomorrow. Patient has a history of coronary artery disease with stenting to his diagonal, LAD and mid circumflex in October 2018 with a staged procedure to his RCA in November 2018. He also has a history of COPD with a history of lung malignancy with a lobectomy, diabetes, obstructive sleep apnea. Patient is currently residing in an assisted facility for his COPD for a hospital stay in Mid March of 2019. Prior to this hospital stay he was participating in cardiac rehab. He does have shortness of breath with exertion but does not feel that this is any worse than before. He does have lower extremity edema and does feel that since he has been in the assisted facility that this has worsened however he states that since he has been here in the hospital that this has improved. He does not have any chest pain. He does not have any lightheadedness or dizziness. He does not have any syncopal episodes.] Past Medical History Allergies/Adverse Reactions: Allergies gabapentin Allergy (Unknown, Verified 04/11/19 03:04) Unknown acetylcysteine [From Mucomyst] Allergy (Verified 04/11/19 03:04) Shortness of breath alprazolam [From Xanax] Allergy (Verified 04/11/19 03:04) breathing issues belladonna alkaloids Allergy (Verified 04/11/19 03:04) Unknown cephalexin Allergy (Verified 04/11/19 03:04) Unknown ciprofloxacin [From Cipro] Allergy (Verified 04/11/19 03:04) Unknown dicyclomine Allergy (Verified 04/11/19 03:04) Unknown diltiazem Allergy (Verified 04/11/19 03:04) Unknown doxycycline Allergy (Verified 04/11/19 03:04) Shortness of breath ezetimibe Allergy (Verified 04/11/19 03:04) Unknown fluvastatin Allergy (Verified 04/11/19 03:04) Unknown metoprolol [From Toprol XL] Allergy (Verified 04/11/19 03:04) Unknown nitrofurantoin Allergy (Verified 04/11/19 03:04) Unknown phenobarbital Allergy (Verified 04/11/19 03:04) Unknown prochlorperazine [From Compazine] Allergy (Verified 04/11/19 03:04) Unknown simvastatin [From Zocor] Allergy (Verified 04/11/19 03:04) Unknown Zuthmgu-Wep-Iyh Reductase Inhibitor Allergy (Verified 04/11/19 03:04) Unknown sulfamethoxazole [From Bactrim] Allergy (Verified 04/11/19 03:04) Unknown tamsulosin [From Flomax] Allergy (Verified 04/11/19 03:04) Unknown trimethoprim [From Bactrim] Allergy (Verified 04/11/19 03:04) Unknown carvedilol Adverse Reaction (Verified 04/11/19 03:04) Vomiting Home Medications: Ambulatory Orders Medication Instructions Recorded Aspirin [Aspirin, Baby] 81 mg PO DAILY@0800 11/13/15 Doxazosin Mesylate [Cardura] 4 mg PO QHS 11/13/15 Finasteride [Proscar] 5 mg PO DAILY 11/13/15 Mirtazapine [Remeron] 30 mg PO QHS 11/13/15 Theophylline [Kevin-Dur] 300 mg PO BID 11/13/15 prednisoLONE eye drops (1 mL) 1 drp RIGHT EYE 4X/DAY PRN PRN 11/13/15 [Pred Forte eye drops (1 mL)] Guaifenesin [Mucinex] 1,200 mg PO BID PRN 07/29/17 Albuterol Inhaler [Ventolin Hfa] 1 - 2 puff INHALATION Q4H PRN PRN 08/26/17 #1 inhaler Ipratropium/Albuterol Sulfate 3 ml INHALATION 4X/DAY PRN PRN 03/11/18 [Duoneb] Nitroglycerin (INPATIENT USE) 0.4 mg SUBLINGUAL Q5M PRN 03/11/18 [Nitrostat] Roflumilast [Daliresp] 500 mcg PO DAILY 03/11/18 Furosemide [Lasix] 20 mg PO DAILY 10/10/18 Lorazepam [Ativan] 1 mg PO BID 10/27/18 primidone 50 mg tablet 50 mg PO BID tab 10/27/18 clopidogrel 75 mg tablet 75 mg PO DAILY #90 tab 11/08/18 losartan 25 mg tablet 12.5 mg PO DAILY #45 tab 11/08/18 digoxin 250 mcg (0.25 mg) tablet 125 mcg PO DAILY #30 tab 01/27/19 Fluticasone/Vilanterol [Breo 1 ea IH DAILY 03/26/19 Ellipta Inhaler] Pantoprazole Sodium 40 mg PO DAILY 03/26/19 Acetaminophen [Tylenol] 650 mg PO Q4H PRN PRN 04/11/19 Budesonide/Formoterol 160/4.5 2 puff INHALATION BID 04/11/19 [Symbicort 160/4.5 Mcg Inhaler (SP)] Escitalopram Oxalate [Lexapro] 10 mg PO DAILY 04/11/19 Magnesium Citrate [Citrate of 300 ml PO DAILY PRN PRN 04/11/19 Magnesia] Past Medical History (Chronic Problems): Chronic Problems (Last Reviewed 03/18/19 @ 21:59 by Kirti Solomon DO) Acute exacerbation of chronic obstructive pulmonary disease (COPD) (Chronic) Respiratory distress (Chronic) S/P coronary artery stent placement (Chronic ~11/07/18) PTCA/stent to mid RCA @ [facility] 10/18/01; PTCA/TAMI of the prox Diag #1, PTCA/TAMI of the prox LAD, PTCA/TAMI of the mid LCX 10/12/18; PTCA/TAMI to mid RCA and PTCA/TAMI to prox/ostial RCA 11/07/18 Atherosclerotic heart disease of [place] coronary artery without angina pectoris (Chronic) Normochromic normocytic anemia (Chronic) Chronic renal failure, stage 2 (mild) (Chronic) CARLIN (obstructive sleep apnea) (Chronic) GERD (gastroesophageal reflux disease) (Chronic) Anxiety disorder (Chronic) with panic attacks COPD (chronic obstructive pulmonary disease) (Chronic) History of coronary angioplasty (Chronic) Type II diabetes mellitus (Chronic) Surgical History: noncontributory, - - Lobectomy, cardiac stent placement Psychiatric History: Anxiety - With panic attacks - *Family History Maternal Family History: Family History (Last Reviewed 11/14/18 @ 13:23 by Yuko Dangelo) Mother CAD (coronary artery disease) Hypertension Brother CAD (coronary artery disease) Hypertension Other Heart disease History Items: Hypertension Paternal Family History: Family History (Last Reviewed 11/14/18 @ 13:23 by Yuko Dangelo) Mother CAD (coronary artery disease) Hypertension Brother CAD (coronary artery disease) Hypertension Other Heart disease History Items: - - father was a smoker with copd Lives: Snf Smoking Status: Former smoker Review of Systems - Review of Systems General: Denies: Fever, Fatigue, Chills HEENT: Denies: Vision Change, Head Aches Cardiovascular: Reports: Shortness of Breath with Exertion - not worse than previous, Peripheral Edema. Denies: Chest Discomfort, Chest Discomfort at Rest, Chest Discomfort with Exertion, Shortness of Breath at Rest, Orthopnea, Palpitations, Lightheadedness, Dizziness, Syncope Respiratory: Reports: Cough, Shortness of Breath Gastrointestinal: Denies: Indigestion, Heart Burn Genitourinary: Reports: Retention, Hematuria Neurological: Denies: Dizziness, Confusion Objective: Vital Signs Temp Pulse Resp BP Pulse Ox 98.1 F 100 18 113/65 95 04/13/19 09:12 04/13/19 09:17 04/13/19 09:12 04/13/19 09:12 04/13/19 09:12 Oxygen Delivery Method Room Air Weight: 148 lb 14.4 oz Body Mass Index (BMI) 24.0 Intake and Output for Last 24 Hours 04/11/19 04/12/19 04/13/19 23:59 23:59 23:59 Intake Total 975 / 975 1613.75 / 1863.75 550 / 550 Output Total 5250 / 5250 3400 / 3400 Balance -4275 / -4275 -1786.25 / -1536.25 550 / 550 General: Awake, Alert, Oriented x 3, Cooperative, No Acute Distress HEENT: Atraumatic, Normocephalic, PERRL, EOMI Oral: Moist Mucosa Neck: Supple, No JVD, Trachea Midline Lungs: Diminished Demetrius Bases Cardiovascular: Normal S1, Normal S2, No Murmurs, No Rubs, No Gallops Vascular: No Carotid Bruits Abdomen: Bowel Sounds Present, Soft, Non Tender Extremities: Bilateral Edema +1 Neurological: No Focal Motor or Sensory Deficit, CN II-XII Intact Psych/Mental Status: Appropriate, Normal Affect 04/13/19 05:16: WBC 6.8, RBC 3.00 L, Hgb 8.6 L, Hct 26.4 L, MCV 88.0, MCH 28.7, MCHC 32.6, Plt Count 292, MPV 10.1, Immature Gran % (Auto) 1.000 H, Neut % (Auto) 67.8, Lymph % (Auto) 18.2 L, [place] % (Auto) 10.1 H, Eos % (Auto) 2.3, Baso % (Auto) 0.6, Absolute Neuts (auto) 4.6, Nucleated RBC % 0 04/13/19 05:16: Sodium 141, Potassium 3.4 L, Chloride 109 H, Carbon Dioxide 27.0, Anion Gap 5, BUN 11, Creatinine 0.83, Est GFR (MDRD) Af Amer 114, Est GFR (MDRD) Non-Af 94, BUN/Creatinine Ratio 13.2, Glucose 99, Calcium 8.2 L Rhythm: EKG: ECHO: 10/2018: Left ventricular systolic function is normal. The estimated ejection fraction is 70 %. Anterior leaflet diffuse mitral valve thickening. Trivial mitral valve insufficiency. Trivial tricuspid valve insufficiency. Mild diffuse aortic valve thickening. Mild diffuse aortic valve calcification. Small pericardial effusion. There are no echocardiographic indications of cardiac tamponade. Unable to estimate RV systolic pressure/pulmonary artery pressure due to technically difficult study. Diastolic function is indeterminate. Comment: C/W the previous TTE of 08/25/2017 there are similar type changes. Stress Test: Cardiac Cath: 10/2018: Elevated Left Ventricular End Diastolic Pressure Normal LV size, wall motion,and systolic function LVEF: by LV gram 55 % Ione Multivessel CAD Mitral Valve Insufficiency Moderate PCI: 10/2018: Successful PTCA/TAMI of proximal DIAG#1 with a 2.25 x 16 Promus Synergy, 75%-->0%, no dissection. Successful PTCA/TAMI proximal LAD with a 2.5 x 12 Promus Synergy, post dilated with a 3.0 x 8 NC in proximal portion of stent only; 75%-->0%, no dissection. Successful PTCA/TAMI mid LCX with a 2.5 x 38 Promus Synergy stent, post dilated throughout with a 2.5 x 12 NC Balloon; 75%-->0%, no dissection or plaque shift into OM#1. 11/2018: Successful PTCA/TAMI mid RCA with a 3.5 x 38 Promus Synergy, post dilated throughout with a 4.0 x 12 NC Balloon; 85%-->0%, no dissection. Successful PTCA/TAMI proximal/ostial RCA with a 3.5 x 16 Promus Synergy, post dilated throughout with a 4.0 x 12 NC Balloon; 75%-->0%, no dissection. CT Surgery: Holter monitor: EPS: PPM: CXR: Chest CT Scan: Assessment/Plan 1. Coronary artery disease: Patient has not had any symptoms of angina since his stenting in October and November 2018. He was previously participating in cardiac rehab without any issues prior to his hospital stay in March for COPD. In regards to his upcoming procedure for his hematuria, with patient's recent stenting in October and November 2018 and significant coronary artery disease he has not able to stop his Plavix or his aspirin. We will also continue with his losartan. This was discussed with Dr. Drake.
--- NOTE | 2019-04-13 11:38 | CASEMGMT ---
Social Work Note SW faxed updated clinicals to Susana at [facility]. Plan: [facility] once medically cleared Alayna Stephens POWDER TRUCK DRIVER, COVERAGE SPECIALIST
[2019-04-13] MEDS: Mirtazapine 30 MG Tablet PO (21:15)
[2019-04-13] MEDS: Doxazosin 4 MG Tablet PO (21:15)
[2019-04-14] VITALS (16 sets, daily range): BP systolic 101–155; BP diastolic 58–70; PULSE 71–120; RESP 16–20; TEMP 36.5–37.3; O2SAT 93–96; BMI 23.9
[2019-04-14] MEDS: Ipratropium/Albuterol Sulfate 3 ML AMPUL.NEB INHALATION ×2 (04:57→22:28)
[2019-04-14 06:23] LABS: Absolute Lymphocyte Count 1.19 X10^3/uL (0.83-4.51); Absolute Neutrophil Count 5.8 X10^3/uL (2.0-7.7); Basophil# 0.03 X10^3/uL; Basophil% 0.4 % (0-1); Eosinophil# 0.13 X10^3/uL; Eosinophils% 1.6 % (0-5); Hematocrit 29.1 % (40-54); Hemoglobin 9.6 g/dL (13.0-16.5); Lymphocyte # 1.19 X10^3/ul (4.0); Lymphocyte % 14.5 % (19-41); Mean Corpuscular Hgb 29.6 pg (27.0-32.0); Mean Corpuscular Volume 89.8 fL (80-94); Mean Platelet Vol. 10.1 fl (6.2-12.0); Monocyte# 0.92 X10^3/uL; Monocyte% 11.2 % (0-10); NRBC Flagged by Analyzer 0 % (0-5); Neutrophil # 5.84 X10^3/uL (2.7-7.7); Platelet Count 316 K/mm3 (150-450); RBC Distribution Width CV 13.8 % (11.6-14.6); RBC Distribution Width SD 45.2 fl (35.1-43.9); Red Blood Count 3.24 M/mm3 (4.6-6.2); White Blood Count 8.2 K/mm3 (4.4-11.0)
[2019-04-14 06:48] LABS: Anion Gap 4 (5-15); BUN 15 mg/dL (7-18); BUN/Creat Ratio 16.9 RATIO (10-20); Calcium,Total 8.4 mg/dL (8.5-10.1); Chloride 107 mmol/L (98-107); Creatinine, Serum 0.89 mg/dL (0.70-1.30); EST Glomerular Filtration Rate 88 mL/min (>60); Est Glom Filt Rate - Afr Amer 106 mL/min (>60); Estimated Creatinine Clearance 58.74 ml/min; Glucose 116 mg/dL (74-106); Potassium 3.6 mmol/L (3.5-5.1); Sodium Level 139 mmol/L (136-145)
[2019-04-14] MEDS: Albuterol 2.5 MG/3 ML VIAL.NEB. INHALATION ×3 (08:40→19:01)
--- NOTE | 2019-04-14 09:10 | NURSING ---
Addendum entered by Emily Sherwood 04/14/19 09:27: SOFIA Bhatti aware that pt had order for consent for transurethral resection of prostate and signed consent for that procedure, no order for consent for cystoscopy. Original Note: report called to Davy in AC, pt transported down to AC via bed at this time. pre-op antibiotic with patient.
--- NOTE | 2019-04-14 09:25 | PCA ---
pt off floor
[2019-04-14] MEDS: Lactated Ringers 1,000 ML 100 ML IV ×2 (09:53→18:49)
--- NOTE | 2019-04-14 10:07 | CASEMGMT ---
Addendum entered by Alayna Stephens 04/14/19 14:09: SW received call from [facility] stating [facility] as pt just had surgery today and discharge back to [facility] tomorrow. Physician updated. Original Note: Social Work Note SW placed a call to Susana at [facility] and left her a message that pt is currently down at surgery and may discharge later today or tomorrow. SW placed green sheet and transportation form on pt's chart. Plan: Return to [facility] once medically cleared Alayna Stephens SWEATBAND SEPARATOR, FIRE DISPATCHER
--- NOTE | 2019-04-14 11:14 | PCA ---
pt off floor
[2019-04-14] MEDS: Cefazolin 2 GM in 0.9% Normal Saline 100 ML IV (11:19)
--- NOTE | 2019-04-14 11:23 | PCM.OPRPT ---
Problem List (1) Acute urinary retention Status: Acute Report of Operation Date of Procedure: 04/14/19 Pre-Operative Diagnosis: BPH with obstruction Post-Operative Diagnosis: The same Surgery/Procedure Performed:: Diagnostic cystoscopy and transrectal ultrasound of the prostate Description of Surgical Findings:: Indication is an 79-year-old male who is known for several years we talked about surgical intervention his prostate he is refused treatment in the past. Recently his health is worsened he is in the skilled nursing he now requires a catheter he wished to have a procedure done to alleviate his obstruction and retort restore normal voiding however because of recent cardiac procedure we can stop his Plavix so today I discussed the diagnostic cystoscopy ultrasound the prostate to evaluate the prostate size and anatomy and will consider outpatient procedure once discharged from the hospital 79-year-old male taken back to the operating room after smooth induction of MAC local he was placed supine on the table penis was uncircumcised catheter was removed penis and testicles were prepped and draped in usual sterile fashion went into the bladder with a 21 [place] rigid cystourethroscope entire length urethra was normal sphincter was intact he did have bilateral hypertrophy a small median lobe significant amount of obstruction but the prostate length was not that large. Certainly amendable to resection of the prostate but given the situation can proceed with that so after this we then put an ultrasound probe into the rectum edge of the prostate the length width and height of the prostate was measured calculated size about 30 g. Catheter was put back in the bladder and he was taken back to PACU in good condition we will set him up for an outpatient procedure after discharge. Type of Anesthesia:: General Drains: 18 fr - Admit VTE Documentation VTE Present on Admission: No
[2019-04-14] MEDS: Digoxin 125 MCG Tablet PO (13:57)
[2019-04-14] MEDS: Escitalopram Oxalate 10 MG Tablet PO (13:57)
[2019-04-14] MEDS: predniSONE 20 MG Tablet 40 MG PO (13:57)
[2019-04-14] MEDS: Primidone 50 MG Tablet PO ×2 (13:57→22:21)
[2019-04-14] MEDS: LORazepam 1 MG Tablet PO ×2 (13:58→22:21)
[2019-04-14] MEDS: Aspirin 81 MG TAB.CHEW PO (13:58)
[2019-04-14] MEDS: Losartan Potassium 25 MG Tablet 12.5 MG PO (13:58)
[2019-04-14] MEDS: Clopidogrel Bisulfate 75 MG Tablet PO (13:58)
[2019-04-14] MEDS: Furosemide 20 MG Tablet PO (13:58)
[2019-04-14] MEDS: Finasteride 5 MG Tablet PO (13:59)
[2019-04-14] MEDS: Pantoprazole Sodium 40 MG Tablet PO (13:59)
[2019-04-14] MEDS: guaiFENesin 1,200 MG Tablet 1200 MG PO (14:03)
--- NOTE | 2019-04-14 16:17 | PN_ITS ---
Patient Problems: Active and Suspected Problems (Last Reviewed 03/18/19 @ 21:59 by Kirti Solomon DO) Hematuria (Acute) Acute urinary retention (Acute) Subjective: States that he feels better today than he has in a long time. He is returned from the OR doing well. Vitals/I&O's: Vital Signs Temp Pulse Resp BP Pulse Ox 98.1 F 102 H 19 H 121/59 H 93 04/14/19 12:30 04/14/19 13:57 04/14/19 13:45 04/14/19 12:30 04/14/19 12:30 Oxygen Delivery Method Room Air Weight: 149 lb 0.52 oz Body Mass Index (BMI) 23.9 Intake and Output for Last 24 Hours 04/12/19 04/13/19 04/14/19 23:59 23:59 23:59 Intake Total 1613.75 / 1863.75 750 / 750 310 / 310 Output Total 3400 / 3400 550 / 550 Balance -1786.25 / -1536.25 750 / 750 -240 / -240 General: Alert, Oriented x3, Cooperative, No apparent distress HEENT: Atraumatic, PERRLA, EOMI, Normocephalic Oral: Moist Mucosa Neck: Supple, No JVD Lungs: Clear to auscultation bilaterally, poor air movement, No rhonchi, no wheezing, No rales, Diminished Cardiovascular: Regular rate, Regular Rhythm, Normal S1, Normal S2, No murmurs Abdomen: Soft, Non Tender, Non-Distended, No Hepato-splenomegaly Extremities: No edema, Capillary Refill Less than 3 Seconds Skin: No rashes, No breakdown Neurological: Neuro grossly intact, Sensory exam intact to light touch and pain Psych/Mental Status: Normal Affect, Appropriate Microbiology Past 72 Hours 04/11/19 03:56 Urine Catheter - Catheter Urine Culture - Final Meth. resistant Staph. aureus Laboratory Results 04/14/19 05:33: WBC 8.2, RBC 3.24 L, Hgb 9.6 L, Hct 29.1 L, MCV 89.8, MCH 29.6, MCHC 33.0, RDW Std Deviation 45.2 H, RDW Coeff of Ye 13.8, Plt Count 316, MPV 10.1, Immature Gran % (Auto) 1.300 H, Neut % (Auto) 71.0 H, Lymph % (Auto) 14.5 L, [place] % (Auto) 11.2 H, Eos % (Auto) 1.6, Baso % (Auto) 0.4, Absolute Neuts (auto) 5.8, Absolute Lymphs (auto) 1.19, Nucleated RBC % 0 04/14/19 05:33: Sodium 139, Potassium 3.6, Chloride 107, Carbon Dioxide 28.0, Anion Gap 4 L, BUN 15, Creatinine 0.89, Estim Creat Clear Calc 58.74, Est GFR (MDRD) Af Amer 106, Est GFR (MDRD) Non-Af 88, BUN/Creatinine Ratio 16.9, Glucose 116 H, Calcium 8.4 L Current Medications Albuterol Sulfate (Ventolin Aerosols) 2.5 mg INHALATION Q6HWA.RT [facility] Last Admin: 04/14/19 13:25 Dose: 2.5 mg Documented by: Albuterol/Ipratropium (Duoneb) 3 ml INHALATION 4X/DAY PRN PRN Reason: SOB &/OR WHEEZING Last Admin: 04/14/19 04:57 Dose: 3 ml Documented by: Aspirin (Aspirin, Baby) 81 mg PO DAILY@0800 [facility] Last Admin: 04/14/19 13:58 Dose: 81 mg Documented by: Clopidogrel Bisulfate (Plavix) 75 mg PO DAILY [facility] Last Admin: 04/14/19 13:58 Dose: 75 mg Documented by: Digoxin (Lanoxin) 125 mcg PO DAILY [facility] Last Admin: 04/14/19 13:57 Dose: 125 mcg Documented by: Doxazosin Mesylate (Cardura) 4 mg PO QHS [facility] Last Admin: 04/13/19 21:15 Dose: 4 mg Documented by: Escitalopram Oxalate (Lexapro) 10 mg PO DAILY [facility] Last Admin: 04/14/19 13:57 Dose: 10 mg Documented by: Finasteride (Proscar) 5 mg PO DAILY [facility] Last Admin: 04/14/19 13:59 Dose: 5 mg Documented by: Furosemide (Lasix) 20 mg PO DAILY [facility] Last Admin: 04/14/19 13:58 Dose: 20 mg Documented by: Glucagon () 1 mg IM .X1 PRN PRN Reason: Hypoglycemia Guaifenesin (Mucinex) 1,200 mg PO BID PRN PRN PRN Reason: CONGESTION Last Admin: 04/14/19 14:03 Dose: 1,200 mg Documented by: Dextrose (Dextrose 10%-Water) 250 mls @ 999 mls/hr IV .Q16M PRN; Protocol PRN Reason: HYPOGLYCEMIA Lactated Ringer's () 1,000 mls @ 100 mls/hr IV .Q10H [facility] Last Admin: 04/14/19 09:53 Dose: 100 mls/hr Documented by: Lorazepam (Ativan) 1 mg PO BID [facility] Last Admin: 04/14/19 13:58 Dose: 1 mg Documented by: Losartan Potassium (Cozaar) 12.5 mg PO DAILY [facility] Last Admin: 04/14/19 13:58 Dose: 12.5 mg Documented by: Mirtazapine (Remeron) 30 mg PO QHS [facility] Last Admin: 04/13/19 21:15 Dose: 30 mg Documented by: Pantoprazole Sodium (Protonix) 40 mg PO DAILY [facility] Last Admin: 04/14/19 13:59 Dose: 40 mg Documented by: Prednisolone Acetate (Pred Forte Eye Drops (5 Ml)) 1 drop OPHTHALMIC 4X/DAY PRN PRN PRN Reason: Dry Eye Prednisone () 40 mg PO DAILY@0800 [facility] Last Admin: 04/14/19 13:57 Dose: 40 mg Documented by: Primidone (Mysoline) 50 mg PO BID [facility] Last Admin: 04/14/19 13:57 Dose: 50 mg Documented by: Sodium Chloride () 10 - 40 ml IV UD PRN PRN Reason: SALINE FLUSH Last Admin: 04/11/19 08:18 Dose: 10 ml Documented by: Theophylline (Elixophyllin) 320 mg PO BID [facility] Last Admin: 04/14/19 13:58 Dose: 320 mg Documented by: STROKE Vital Signs/Narrative: Vital Signs Temp Pulse Resp BP Pulse Ox 04/14/19 13:57 102 H 04/14/19 13:45 71 19 H 04/14/19 12:30 98.1 F 104 H 18 121/59 H 93 Medical Necessity - Tobacco Use Smoking Status: Former smoker Assessment/Plan All Active Problems (Last Reviewed 03/18/19 @ 21:59 by Kirti Solomon DO) Acute respiratory failure with hypoxemia (Acute) Hematuria (Acute) Acute urinary retention (Acute) Chest pain (Acute) Abnormal stress test (Acute) 1. Urinary retention and hematuria -He is currently in a [facility] and had a Colvin removed however after was removed he could not void and therefore a new Colvin was placed however he had gross hematuria and was transferred to the ER -Appreciate urology input, post cystoscopy will likely need a TURP once he can safely be taken off of his aspirin and Plavix for a short time -Hemoglobin was 9.9 admission which is down a little bit from his baseline of 11 -We will continue to monitor -Unfortunately given his significant previous stenting history in November 2018, aspirin and Plavix cannot be discontinued -Continue with finasteride and doxazosin -Urine cultures obtained for slightly abnormal UA, it is growing 1000-10,000 CFU's of MRSA, will not treat since this is a contaminant 2. COPD -He has diminished lung sounds -Continue with his home inhalers and his theophylline, will start him on daily prednisone, will plan to discharge him on a prolonged taper -Theophylline level was 12.2 3. HTN/HLD/CAD status post 5 stents in October and November 2018 -Pressure stable, will continue with his home digoxin, losartan and Lasix -He is allergic to statins -We will continue his aspirin and Plavix as these cannot and will not be discontinued for minimum of 12 months 4. Depression/anxiety -Stable -Continue with Lexapro, Remeron 5. GERD -Stable -Continue with PPI 6. Abnormal chest x-ray -X-ray was read as a possibility of a pneumothorax as well as a perihilar mass -CT did not demonstrate a mass, and there was no pneumo. He does have significant emphysema DVT: SCDs Code Visit Inpatient E&M: 01123 Subs Hosp L2
[2019-04-14] MEDS: Doxazosin 4 MG Tablet PO (22:21)
[2019-04-14] MEDS: Mirtazapine 30 MG Tablet PO (22:21)
[2019-04-15] VITALS (7 sets, daily range): BP systolic 126–132; BP diastolic 68–75; PULSE 100–110; RESP 16–20; TEMP 35.8–36.4; O2SAT 86–96
[2019-04-15] MEDS: Lactated Ringers 1,000 ML 100 ML IV (04:55)
[2019-04-15] MEDS: Albuterol 2.5 MG/3 ML VIAL.NEB. INHALATION (07:26)
[2019-04-15 07:58] LABS: Absolute Lymphocyte Count 1.21 X10^3/uL (0.83-4.51); Absolute Neutrophil Count 4.7 X10^3/uL (2.0-7.7); Basophil# 0.03 X10^3/uL; Basophil% 0.4 % (0-1); Eosinophil# 0.08 X10^3/uL; Eosinophils% 1.2 % (0-5); Hematocrit 28.9 % (40-54); Hemoglobin 9.3 g/dL (13.0-16.5); Lymphocyte # 1.21 X10^3/ul (4.0); Lymphocyte % 17.8 % (19-41); Mean Corp Hgb Conc 32.2 g/dL (32-36); Mean Corpuscular Hgb 28.9 pg (27.0-32.0); Mean Corpuscular Volume 89.8 fL (80-94); Mean Platelet Vol. 9.3 fl (6.2-12.0); Monocyte# 0.64 X10^3/uL; Monocyte% 9.4 % (0-10); NRBC Flagged by Analyzer 0 % (0-5); Neutrophil # 4.73 X10^3/uL (2.7-7.7); Neutrophil % 69.6 % (47-70); Platelet Count 292 K/mm3 (150-450); RBC Distribution Width CV 13.6 % (11.6-14.6); RBC Distribution Width SD 44.9 fl (35.1-43.9); Red Blood Count 3.22 M/mm3 (4.6-6.2); White Blood Count 6.8 K/mm3 (4.4-11.0)
[2019-04-15] MEDS: predniSONE 20 MG Tablet 40 MG PO (08:33)
[2019-04-15] MEDS: Aspirin 81 MG TAB.CHEW PO (08:33)
--- NOTE | 2019-04-15 09:00 | PCM.TXEXTCAR ---
- Diet 04/14/19 11:23 Diet: Regular Diet Is pt able to select menu?: Yes - Routine Orders/Code Status Routine Lab Work: CBC - in 2-3 days - Therapies Physical Therapy: Eval and Treat Occupational Therapy: Eval and Treat - Allergies/Procedures Done in Hospital Allergies/Adverse Reactions: Allergies gabapentin Allergy (Unknown, Verified 04/11/19 03:04) Unknown acetylcysteine [From Mucomyst] Allergy (Verified 04/11/19 03:04) Shortness of breath alprazolam [From Xanax] Allergy (Verified 04/11/19 03:04) breathing issues belladonna alkaloids Allergy (Verified 04/11/19 03:04) Unknown cephalexin Allergy (Verified 04/11/19 03:04) Unknown ciprofloxacin [From Cipro] Allergy (Verified 04/11/19 03:04) Unknown dicyclomine Allergy (Verified 04/11/19 03:04) Unknown diltiazem Allergy (Verified 04/11/19 03:04) Unknown doxycycline Allergy (Verified 04/11/19 03:04) Shortness of breath ezetimibe Allergy (Verified 04/11/19 03:04) Unknown fluvastatin Allergy (Verified 04/11/19 03:04) Unknown metoprolol [From Toprol XL] Allergy (Verified 04/11/19 03:04) Unknown nitrofurantoin Allergy (Verified 04/11/19 03:04) Unknown phenobarbital Allergy (Verified 04/11/19 03:04) Unknown prochlorperazine [From Compazine] Allergy (Verified 04/11/19 03:04) Unknown simvastatin [From Zocor] Allergy (Verified 04/11/19 03:04) Unknown Msssjlb-Tni-Nla Reductase Inhibitor Allergy (Verified 04/11/19 03:04) Unknown sulfamethoxazole [From Bactrim] Allergy (Verified 04/11/19 03:04) Unknown tamsulosin [From Flomax] Allergy (Verified 04/11/19 03:04) Unknown trimethoprim [From Bactrim] Allergy (Verified 04/11/19 03:04) Unknown carvedilol Adverse Reaction (Verified 04/11/19 03:04) Vomiting Procedures: - - Cystoscopy with schafer placement - Type of Care/Length of Stay Estimated LOS: Convalescent Care Less Than 30 days Type of Care Needed: Skilled Rehab Potential: Good Prognosis: Good - Additional Orders/Day of Discharge Day of Discharge: 04/15/19 - Follow Up Care Primary Care Physician: Dutch Lee III, MD [Primary Care Provider] - Please follow up with your Primary Care Physician in: 3-5 days
--- NOTE | 2019-04-15 09:51 | DS.PCM_ITS ---
Discharge Date and Diagnosis - Problem List Patient Problems: Active and Suspected Problems (Last Reviewed 03/18/19 @ 21:59 by Kirti Solomon DO) Hematuria (Acute) Acute urinary retention (Acute) Date of Admission: 04/11/19 Date of Discharge: 04/15/19 - Primary Discharge Diagnosis Active and Suspected Problems (Last Reviewed 03/18/19 @ 21:59 by Kirti Solomon DO) Hematuria (Acute) Acute urinary retention (Acute) - Secondary Discharge Diagnosis Chronic Problems (Last Reviewed 03/18/19 @ 21:59 by Kirti Solomon DO) Acute exacerbation of chronic obstructive pulmonary disease (COPD) (Chronic) Respiratory distress (Chronic) S/P coronary artery stent placement (Chronic ~11/07/18) PTCA/stent to mid RCA @ [facility] 10/18/01; PTCA/TAMI of the prox Diag #1, PTCA/TAMI of the prox LAD, PTCA/TAMI of the mid LCX 10/12/18; PTCA/TAMI to mid RCA and PTCA/TAMI to prox/ostial RCA 11/07/18 Atherosclerotic heart disease of [place] coronary artery without angina pectoris (Chronic) Normochromic normocytic anemia (Chronic) Chronic renal failure, stage 2 (mild) (Chronic) CARLIN (obstructive sleep apnea) (Chronic) GERD (gastroesophageal reflux disease) (Chronic) Anxiety disorder (Chronic) with panic attacks COPD (chronic obstructive pulmonary disease) (Chronic) History of coronary angioplasty (Chronic) Type II diabetes mellitus (Chronic) Hospital Course and Treatment Imaging Results: CXR: FINDINGS: Extensive postsurgical changes are seen throughout both lungs with evidence of architectural distortion and heterogeneous lung density. Increased density within the left perihilar lung is nonspecific. Irregularity at the right apex is difficult to characterize and may represent postsurgical changes or capping. A small pneumothorax cannot be entirely excluded. Aortic knob is atherosclerotic. Cardiac silhouette is unremarkable. Osseous structures appear grossly intact. CT Chest: FINDINGS: Severe emphysematous changes. No noncalcified nodule or mass. Bilateral linear scarring. Small left pleural effusion. There is a moderate pericardial effusion. Normal mediastinum. Normal hilar regions. Normal enhanced pulmonary arteries. There is atherosclerotic calcification of the aortic arch with tortuosity and elongation of the aortic arch and descending thoracic aorta. Normal osseous structures. Multiple hepatic cysts. Small right adrenal gland adenoma which is unchanged. Report of Operation Date of Procedure: 04/14/19 Pre-Operative Diagnosis: BPH with obstruction Post-Operative Diagnosis: The same Surgery/Procedure Performed:: Diagnostic cystoscopy and transrectal ultrasound of the prostate Description of Surgical Findings:: Indication is an 79-year-old male who is known for several years we talked about surgical intervention his prostate he is refused treatment in the past. Recently his health is worsened [facility] he now requires a catheter he wished to have a procedure done to alleviate his obstruction and retort restore normal voiding however because of recent cardiac procedure we can stop his Plavix so today I discussed the diagnostic cystoscopy ultrasound the prostate to evaluate the prostate size and anatomy and will consider outpatient procedure once discharged from the hospital 79-year-old male taken back to the operating room after smooth induction of MAC local he was placed supine on the table penis was uncircumcised catheter was removed penis and testicles were prepped and draped in usual sterile fashion went into the bladder with a 21 [place] rigid cystourethroscope entire length urethra was normal sphincter was intact he did have bilateral hypertrophy a small median lobe significant amount of obstruction but the prostate length was not that large. Certainly amendable to resection of the prostate but given the situation can proceed with that so after this we then put an ultrasound probe into the rectum edge of the prostate the length width and height of the prostate was measured calculated size about 30 g. Catheter was put back in the bladder and he was taken back to PACU in good condition we will set him up for an outpatient procedure after discharge. Consults: Urology Operations: None Procedures: - - Cystoscopy Summary of Care Provided: Per HPI: The patient is a 79 year old male patient with a significant past medical history of chronic obstructive pulmonary disease, coronary artery disease, urinary retention who presents the emergency room from residential facility states earlier yesterday the patient had a Colvin catheter removed but was unable to void afterwards. A new Colvin catheter was therefore placed at which point there was no gross hematuria present and clear urine was flowing initially but then flow stopped. The nursing facility attempted irrigation 2 times but due to the fact that post void scan showed 134 mL residual and the patient was experiencing pain he was sent to the emergency room for evaluation. In the emergency room he had gross hematuria after irrigation. Urology was notified and hospitalist team called to admit due to the patient's comorbidity of chronic obstructive pulmonary disease. Hospital Course: 1. Urinary retention and [id number]-old male from a residential facility with a history of severe COPD as well as coronary artery disease status post 5 stents in October and November 2018 presented with urinary retention and hematuria. Apparently he had a fall at the residential facility when he went to remove it he could not void and then when they reinserted the Colvin there was some trauma and he was having hematuria. [facility]rology was consulted, continuous bladder irrigation was started and he was taken to the operating room to evaluate his bladder via cystoscopy. Initially a TURP was the planned procedure however because of his recent stenting he cannot be discontinued, for any reason, on his aspirin and Plavix. He had another Colvin inserted during the cystoscopy and is currently clear yellow without any blood. His baseline hemoglobin is around 11, and on admission it was 9.9 he is currently at 9.3. He will likely need an outpatient CBC in a few days to make sure that there is stabilization of his hemoglobin. Also he had a UA that was drawn that was not significant for UTI given his bleeding however a urine culture was obtained which only showed 1000-10,000 CFU's of MRSA, since this is not a real UTI this was not treated and should not be treated. He is afebrile and does not have a leukocytosis. He will need to follow-up with urology in 1 to 2 weeks as an outpatient as well as with his PCP in 3 to 5 days. I discussed discharge plan with him and he expressed understanding and was in agreement. 2. COPD-he was recently admitted for a COPD exacerbation, he was feeling short of breath during his hospitalization here and he was restarted on prednisone, part of the difficulty is that some of his breathing medications are not formulary at this hospital and could not be continued. I did restart him on prednisone and do recommend a slow taper given how severe his COPD is. He did have a chest x-ray which was unremarkable except for a possible hilar mass there fore CT scan of his chest was obtained which did not show mass or severe emphysema. 3. His other medical diagnoses were evaluated and his home medications were continued where appropriate Patient Problems: Active and Suspected Problems (Last Reviewed 03/18/19 @ 21:59 by Kirti Solomon DO) Hematuria (Acute) Acute urinary retention (Acute) - Physical Exam Vitals/I&O's: Vital Signs Temp Pulse Resp BP Pulse Ox 97.2 F L 101 H 18 132/68 H 96 04/15/19 09:42 04/15/19 09:42 04/15/19 09:42 04/15/19 09:42 04/15/19 09:42 Oxygen Delivery Method Room Air Weight: 149 lb 0.52 oz Body Mass Index (BMI) 23.9 Intake and Output for Last 24 Hours 04/13/19 04/14/19 04/15/19 23:59 23:59 23:59 Intake Total 750 / 1550 2253.33 / 2253.33 1000 / 1000 Output Total 2300 / 2300 700 / 700 Balance 750 / 450 -46.67 / -46.67 300 / 300 General: Alert, Oriented x3, Cooperative, No apparent distress HEENT: Atraumatic, PERRLA, EOMI, Normocephalic Oral: Moist Mucosa Neck: Supple, No JVD Lungs: Clear to auscultation bilaterally, poor air movement, No rhonchi, no wheezing, No rales, Diminished Cardiovascular: Regular rate, Regular Rhythm, Normal S1, Normal S2, No murmurs Abdomen: Soft, Non Tender, Non-Distended, No Hepato-splenomegaly Extremities: No edema, Capillary Refill Less than 3 Seconds Skin: No rashes, No breakdown Neurological: Neuro grossly intact, Sensory exam intact to light touch and pain Psych/Mental Status: Normal Affect, Appropriate Microbiology Past 72 Hours 04/11/19 03:56 Urine Catheter - Catheter Urine Culture - Final Meth. resistant Staph. aureus Laboratory Results 04/15/19 07:48: WBC 6.8, RBC 3.22 L, Hgb 9.3 L, Hct 28.9 L, MCV 89.8, MCH 28.9, MCHC 32.2, RDW Std Deviation 44.9 H, RDW Coeff of Ye 13.6, Plt Count 292, MPV 9.3, Immature Gran % (Auto) 1.600 H, Neut % (Auto) 69.6, Lymph % (Auto) 17.8 L, [place] % (Auto) 9.4, Eos % (Auto) 1.2, Baso % (Auto) 0.4, Absolute Neuts (auto) 4.7, Absolute Lymphs (auto) 1.21, Nucleated RBC % 0 Current Medications Albuterol Sulfate (Ventolin Aerosols) 2.5 mg INHALATION Q6HWA.RT [facility] Last Admin: 04/15/19 07:26 Dose: 2.5 mg Documented by: Albuterol Sulfate (Ventolin Aerosols) 2.5 mg INHALATION Q4HWA PRN PRN Reason: WHEEZING Albuterol/Ipratropium (Duoneb) 3 ml INHALATION 4X/DAY PRN PRN Reason: SOB &/OR WHEEZING Last Admin: 04/14/19 22:28 Dose: 3 ml Documented by: Aspirin (Aspirin, Baby) 81 mg PO DAILY@0800 [facility] Last Admin: 04/15/19 08:33 Dose: 81 mg Documented by: Clopidogrel Bisulfate (Plavix) 75 mg PO DAILY [facility] Last Admin: 04/14/19 13:58 Dose: 75 mg Documented by: Digoxin (Lanoxin) 125 mcg PO DAILY [facility] Last Admin: 04/14/19 13:57 Dose: 125 mcg Documented by: Doxazosin Mesylate (Cardura) 4 mg PO QHS [facility] Last Admin: 04/14/19 22:21 Dose: 4 mg Documented by: Escitalopram Oxalate (Lexapro) 10 mg PO DAILY [facility] Last Admin: 04/14/19 13:57 Dose: 10 mg Documented by: Finasteride (Proscar) 5 mg PO DAILY [facility] Last Admin: 04/14/19 13:59 Dose: 5 mg Documented by: Furosemide (Lasix) 20 mg PO DAILY [facility] Last Admin: 04/14/19 13:58 Dose: 20 mg Documented by: Glucagon () 1 mg IM .X1 PRN PRN Reason: Hypoglycemia Guaifenesin (Mucinex) 1,200 mg PO BID PRN PRN PRN Reason: CONGESTION Last Admin: 04/14/19 14:03 Dose: 1,200 mg Documented by: Dextrose (Dextrose 10%-Water) 250 mls @ 999 mls/hr IV .Q16M PRN; Protocol PRN Reason: HYPOGLYCEMIA Lactated Ringer's () 1,000 mls @ 100 mls/hr IV .Q10H [facility] Last Admin: 04/15/19 04:55 Dose: 100 mls/hr Documented by: Lorazepam (Ativan) 1 mg PO BID [facility] Last Admin: 04/14/19 22:21 Dose: 1 mg Documented by: Losartan Potassium (Cozaar) 12.5 mg PO DAILY [facility] Last Admin: 04/14/19 13:58 Dose: 12.5 mg Documented by: Mirtazapine (Remeron) 30 mg PO QHS [facility] Last Admin: 04/14/19 22:21 Dose: 30 mg Documented by: Pantoprazole Sodium (Protonix) 40 mg PO DAILY [facility] Last Admin: 04/14/19 13:59 Dose: 40 mg Documented by: Prednisolone Acetate (Pred Forte Eye Drops (5 Ml)) 1 drop OPHTHALMIC 4X/DAY PRN PRN PRN Reason: Dry Eye Prednisone () 40 mg PO DAILY@0800 [facility] Last Admin: 04/15/19 08:33 Dose: 40 mg Documented by: Primidone (Mysoline) 50 mg PO BID [facility] Last Admin: 04/14/19 22:21 Dose: 50 mg Documented by: Sodium Chloride () 10 - 40 ml IV UD PRN PRN Reason: SALINE FLUSH Last Admin: 04/11/19 08:18 Dose: 10 ml Documented by: Theophylline (Elixophyllin) 320 mg PO BID [facility] Last Admin: 04/14/19 22:21 Dose: 320 mg Documented by: Home Medications: Medications to take at Discharge Aspirin [Aspirin, Baby] 81 mg PO DAILY@0800 11/13/15 Doxazosin Mesylate [Cardura] 4 mg PO QHS 11/13/15 Finasteride [Proscar] 5 mg PO DAILY 11/13/15 Mirtazapine [Remeron] 30 mg PO QHS 11/13/15 Theophylline [Kevin-Dur] 300 mg PO BID 11/13/15 prednisoLONE eye drops (1 mL) [Pred Forte eye drops (1 mL)] 1 drp RIGHT EYE 4X/DAY PRN PRN 11/13/15 Guaifenesin [Mucinex] 1,200 mg PO BID PRN 07/29/17 Albuterol Inhaler [Ventolin Hfa] 1 - 2 puff INHALATION Q4H PRN PRN #1 inhaler 08/26/17 Ipratropium/Albuterol Sulfate [Duoneb] 3 ml INHALATION 4X/DAY PRN PRN 03/11/18 Nitroglycerin (INPATIENT USE) [Nitrostat] 0.4 mg SUBLINGUAL Q5M PRN 03/11/18 Roflumilast [Daliresp] 500 mcg PO DAILY 03/11/18 Furosemide [Lasix] 20 mg PO DAILY 10/10/18 Lorazepam [Ativan] 1 mg PO BID 10/27/18 primidone 50 mg tablet 50 mg PO BID tab 10/27/18 clopidogrel 75 mg tablet 75 mg PO DAILY #90 tab 11/08/18 losartan 25 mg tablet 12.5 mg PO DAILY #45 tab 11/08/18 digoxin 250 mcg (0.25 mg) tablet 125 mcg PO DAILY #30 tab 01/27/19 Fluticasone/Vilanterol [Breo Ellipta 100-25 Mcg INH] 1 ea IH DAILY 03/26/19 Pantoprazole Sodium 40 mg PO DAILY 03/26/19 Acetaminophen [Tylenol] 650 mg PO Q4H PRN PRN 04/11/19 Budesonide/Formoterol 160/4.5 [Symbicort 160/4.5 Mcg Inhaler (SP)] 2 puff INHALATION BID 04/11/19 Escitalopram Oxalate [Lexapro] 10 mg PO DAILY 04/11/19 Magnesium Citrate [Citrate of Magnesia] 300 ml PO DAILY PRN PRN 04/11/19 predniSONE tablet 40 mg PO DAILY@0800 tab 04/15/19 Primary Care Physician: Dutch Lee III, MD [Primary Care Provider] - Please follow up with your Primary Care Physician in: 3-5 days Disposition: Snf facility Minutes spent on discharge:: 35 Patient Condition:: Stable Medical Necessity - Tobacco Use Smoking Status: Former smoker Meaningful Use Info Meaningful Use Diagnoses (Choose all that apply): None applicable Code Visit Inpatient E&M: 80568 Disch Hosp
[2019-04-15] MEDS: Clopidogrel Bisulfate 75 MG Tablet PO (10:24)
[2019-04-15] MEDS: Digoxin 125 MCG Tablet PO (10:24)
[2019-04-15] MEDS: Primidone 50 MG Tablet PO (10:24)
[2019-04-15] MEDS: Losartan Potassium 25 MG Tablet 12.5 MG PO (10:25)
[2019-04-15] MEDS: LORazepam 1 MG Tablet PO (10:25)
[2019-04-15] MEDS: Escitalopram Oxalate 10 MG Tablet PO (10:25)
[2019-04-15] MEDS: Furosemide 20 MG Tablet PO (10:25)
[2019-04-15] MEDS: Finasteride 5 MG Tablet PO (10:25)
[2019-04-15] MEDS: Pantoprazole Sodium 40 MG Tablet PO (10:25)
[2019-04-15] MEDS: Ipratropium/Albuterol Sulfate 3 ML AMPUL.NEB INHALATION (11:11)
== END 2019-04-15 12:37 | disposition skilled nursing facility (03) | DRG 726 ==
LOC: ED 05:45 → MS3 07:14
PROVIDERS: Urology; Admitting Provider Family Medicine; Emergency Provider Emergency Medicine; Family Provider Family Medicine; PCP Family Medicine; Visit Provider Family Medicine
PROC: 0TJB8ZZ Inspection of Bladder, Via Natural or Artificial Opening Endoscopic (ICD-10-PCS; CPT 55700; principal; 2019-04-14 10:00)
DX: N40.1 Benign prostatic hyperplasia with lower urinary tract symptoms (principal); E11.9 Type 2 diabetes mellitus without complications; R33.8 Other retention of urine; R31.0 Gross hematuria; I25.10 Atherosclerotic heart disease of native coronary artery without angina pectoris; G47.33 Obstructive sleep apnea (adult) (pediatric); F41.9 Anxiety disorder, unspecified; D64.9 Anemia, unspecified; J44.9 Chronic obstructive pulmonary disease, unspecified; Z90.2 Acquired absence of lung [part of]; Z79.02 Long term (current) use of antithrombotics/antiplatelets; Z95.5 Presence of coronary angioplasty implant and graft; Z79.82 Long term (current) use of aspirin; Z85.118 Personal history of other malignant neoplasm of bronchus and lung; Z88.8 Allergy status to other drugs, medicaments and biological substances; K21.9 Gastro-esophageal reflux disease without esophagitis
CPT/HCPCS: 36415; 51702; 71046; 71260; 76872; 80048; 80198; 81001; 85025; 87077; 87086; 87088; 87186; 93005; 94640; 97116; 97163; 97166; 97530; 97535; 99285; J7030; J7120; Q9967; A4216; J2405

== ENCOUNTER 2019-05-08 23:11 | Inpatient (IN) | payer MEDICARE, BC, SELFPAY ==
[2018-11-07 13:51] VITALS: BMI 23.5
[2019-04-14 08:30] VITALS: BMI 23.9
[2019-05-08 23:11] VITALS: BP 145/79; PULSE 113; RESP 18; TEMP 37.3; O2SAT 97; BMI 24.5
--- NOTE | 2019-05-08 23:39 | EKG12_ITS ---
Test Reason : DYSRHYTHMIA Blood Pressure : / mmHG Vent. Rate : 107 BPM Atrial Rate : 107 BPM P-R Int : 130 ms QRS Dur : 086 ms QT Int : 314 ms P-R-T Axes : 091 082 078 degrees QTc Int : 419 ms Sinus tachycardia with occasional Premature ventricular complexes Otherwise normal ECG Confirmed by FRANDY THOMAS ([id number]), material expeditor HEATHER PENA ([id number]) on 05/12/2019 9:24:11 AM Referred By: Dutch Lee Confirmed By:FRANDY THOMAS
--- NOTE | 2019-05-08 23:39 | RAD_ITS ---
STUDY: X-RAY CHEST REASON FOR EXAM: Male, 79 years old. SOB TECHNIQUE: PA and lateral views of the chest. 4 images. COMPARISON: 04/12/2019. CT chest 04/13/2019. FINDINGS: There is hyperinflation of the lungs consistent with chronic obstructive lung disease (COPD). Bilateral upper lobe postsurgical changes. Large bulla formation and distortion of parenchyma. Underlying emphysema. There is no demonstrated pleural abnormality. Normal size heart. Curvilinear density along the anterior heart most consistent with pericardial fluid seen on CT. This is not significantly changed. Normal mediastinum and cinthya. Normal visualized pulmonary arteries. There is atherosclerotic calcification of the aortic arch with tortuosity. There is demineralization of the osseous structures. Remote healed rib deformities. There is no demonstrated abnormality of the visualized soft tissue structures of the upper abdomen. RAD/Chest PA and Lateral IMPRESSION: Bullous emphysema with large bulla formation and postsurgical changes in the bilateral lung parenchyma. No pulmonary edema, congestive heart failure or confluent pneumonia. Suspect anterior pericardial fluid. Electronically Signed: Renetta Garcia MD at 0:16 EST , Service support ,
--- NOTE | 2019-05-08 23:40 | ED.DCSUM_ITS ---
History of Present Illness Chief Complaint: Shortness of Breath Narrative: Patient is an 79-year-old male who presents with shortness of breath. This began this afternoon and has gradually worsened since that time. No chest pain. No nausea or vomiting. No fevers cough congestion rhinorrhea. Patient believes this may be related to anxiety. He did recently have a uro-lift procedure and has had dysuria. He states he did have his urine checked by urology and there was no infection. He was started on Pyridium for symptoms which he believes may be contributing. He does have COPD but denies any increased cough or wheezing. No history of coronary disease. Past Medical History - Allergies and Home Meds Allergies/Adverse Reactions: Allergies gabapentin Allergy (Unknown, Verified 04/11/19 03:04) Unknown acetylcysteine [From Mucomyst] Allergy (Verified 04/11/19 03:04) Shortness of breath alprazolam [From Xanax] Allergy (Verified 04/11/19 03:04) breathing issues belladonna alkaloids Allergy (Verified 04/11/19 03:04) Unknown cephalexin Allergy (Verified 04/11/19 03:04) Unknown ciprofloxacin [From Cipro] Allergy (Verified 04/11/19 03:04) Unknown dicyclomine Allergy (Verified 04/11/19 03:04) Unknown diltiazem Allergy (Verified 05/08/19 23:16) Unknown doxycycline Allergy (Verified 05/08/19 23:16) Shortness of breath ezetimibe Allergy (Verified 05/08/19 23:16) Unknown fluvastatin Allergy (Verified 05/08/19 23:16) Unknown metoprolol [From Toprol XL] Allergy (Verified 05/08/19 23:16) Unknown nitrofurantoin Allergy (Verified 05/08/19 23:16) Unknown phenobarbital Allergy (Verified 05/08/19 23:16) Unknown prochlorperazine [From Compazine] Allergy (Verified 05/08/19 23:16) Unknown simvastatin [From Zocor] Allergy (Verified 05/08/19 23:16) Unknown Fhtecod-Mhb-Juo Reductase Inhibitor Allergy (Verified 05/08/19 23:16) Unknown sulfamethoxazole [From Bactrim] Allergy (Verified 05/08/19 23:16) Unknown tamsulosin [From Flomax] Allergy (Verified 05/08/19 23:16) Unknown trimethoprim [From Bactrim] Allergy (Verified 05/08/19 23:16) Unknown carvedilol Adverse Reaction (Verified 05/08/19 23:16) Vomiting Primary Care Physician: Dutch Lee III, MD [Primary Care Provider] - Past Medical History: - - COPD, BPH, anxiety Surgical History: noncontributory, - - Lobectomy, cardiac stent placement Smoking Status: Former smoker - Family History Maternal Family History: Family History (Last Reviewed 11/14/18 @ 13:23 by Yuko Dangelo) Mother CAD (coronary artery disease) Hypertension Brother CAD (coronary artery disease) Hypertension Other Heart disease Family History: Reports: Hypertension Additional Family History: Heart failure Paternal Family History: Family History (Last Reviewed 11/14/18 @ 13:23 by Yuko Dnagelo) Mother CAD (coronary artery disease) Hypertension Brother CAD (coronary artery disease) Hypertension Other Heart disease Family History: Reports: - - father was a smoker with copd Additional Family History: COPD Review of Systems All systems negative except as indicated General: Denies: Fever Eyes: Denies: Visual changes - bilaterally ENT: Denies: Bilateral ear pain Cardiovascular: Denies: Chest pain Respiratory: Reports: Dyspnea. Denies: Cough, Sputum Gastrointestinal: Denies: Abdominal pain, Nausea, Vomiting Genitourinary: Reports: Dysuria Skin: Denies: Rash Neurological: Denies: Headache Psych: Reports: Anxiety Allergy: Denies: Uticaria Physical Exam Vital Signs/Narrative: Vital Signs Temp Pulse Resp BP Pulse Ox 05/08/19 23:11 99.2 F H 113 H 18 145/79 H 97 Inital Vital Signs reviewed: Yes General: Well nourished, Well developed Head: Normocephalic Eyes: EOMI ENT: Moist mucous membranes Neck: Supple Cardiovascular: Regular rhythm, No murmurs, Tachycardia Respiratory: No distress, CTA bilaterally Abdomen: Soft, Nontender Extremities: Nontender Skin: Normal color Neurological: Alert Psychological: - - Anxious Diagnostic/Tx/Re-eval Impressions Chest X-Ray 05/08/19 23:39 IMPRESSION: Bullous emphysema with large bulla formation and postsurgical changes in the bilateral lung parenchyma. No pulmonary edema, congestive heart failure or confluent pneumonia. Suspect anterior pericardial fluid. Electronically Signed: Renetta Garcia MD at 0:16 EST , Service support , Chest CTA 05/09/19 00:30 IMPRESSION: No demonstrated pulmonary embolism, aneurysm, leak or arterial dissection. Small pleural-based nodule left lower lobe currently 0.6 x 0.5 cm stable since most recent examination, slightly increased in size since August 26, 2015 from 0.4 x 0.5 cm with no indistinct pleural nodular density. Consider follow-up examination in 6 months. No pulmonary edema, congestive heart failure or confluent pneumonia. Stable hepatic cysts, right adrenal nodule in the upper abdomen. Severe emphysema with postsurgical changes, stable small scattered calcified nodules, and moderate anterior pericardial effusion, atherosclerosis and coronary artery disease are stable findings. Electronically Signed: Renetta Garcia MD at 1:42 EST , Service support , 05/08/19 23:39 Chest PA and Lateral [RAD] Stat 05/09/19 00:30 CTA Chest W/WO Contrast [CT] Stat Laboratory Results 05/08/19 05/08/19 05/08/19 23:20 23:20 23:20 WBC 7.6 RBC 3.59 L Hgb 9.9 L Hct 30.3 L MCV 84.4 MCH 27.6 MCHC 32.7 RDW Std Deviation 41.9 RDW Coeff of Ye 13.5 Plt Count 288 MPV 9.8 Immature Gran % (Auto) 2.000 H Neut % (Auto) 74.0 H Lymph % (Auto) 12.5 L [place] % (Auto) 8.5 Eos % (Auto) 2.6 Baso % (Auto) 0.4 Absolute Neuts (auto) 5.6 Absolute Lymphs (auto) 0.94 Nucleated RBC % 0 Sodium 140 Potassium 3.7 Chloride 107 Carbon Dioxide 25.0 Anion Gap 8 BUN 16 Creatinine 1.25 Estim Creat Clear Calc 40.32 Est GFR (MDRD) Af Amer 71 Est GFR (MDRD) Non-Af 59 L BUN/Creatinine Ratio 12.8 Glucose 131 H Lactic Acid 1.3 Calcium 9.1 Troponin I < 0.015 Urine Color Urine Clarity Urine pH Ur Specific [place] Urine Protein Urine Glucose (UA) Urine Ketones Urine Occult Blood Urine Nitrite Urine Bilirubin Urine Urobilinogen Ur Leukocyte Esterase Urine RBC Urine WBC Ur Squamous Epith Cells Urine Bacteria Urine Mucus 05/09/19 00:10 WBC RBC Hgb Hct MCV MCH MCHC RDW Std Deviation RDW Coeff of Ye Plt Count MPV Immature Gran % (Auto) Neut % (Auto) Lymph % (Auto) [place] % (Auto) Eos % (Auto) Baso % (Auto) Absolute Neuts (auto) Absolute Lymphs (auto) Nucleated RBC % Sodium Potassium Chloride Carbon Dioxide Anion Gap BUN Creatinine Estim Creat Clear Calc Est GFR (MDRD) Af Amer Est GFR (MDRD) Non-Af BUN/Creatinine Ratio Glucose Lactic Acid Calcium Troponin I Urine Color Yellow Urine Clarity Sl. Cloudy Urine pH 7.0 Ur Specific [place] 1.010 Urine Protein 15 H Urine Glucose (UA) Normal Urine Ketones 15 H Urine Occult Blood 50 H Urine Nitrite Positive H Urine Bilirubin Negative Urine Urobilinogen Normal Ur Leukocyte Esterase 500 H Urine RBC 10-25 SEEN Urine WBC 25-50 SEEN Ur Squamous Epith Cells 0 SEEN Urine Bacteria 2+ Urine Mucus 0 SEEN - Medical Decision Making EKG shows sinus tachycardia at a rate of 107 with occasional PVC, no acute ischemic changes. She was given Ativan as he thought this may be related to anxiety. The patient underwent the above diagnostic work-up. Initially obtain laboratory studies and a chest x-ray. This was notable for possible pericardial effusion. Given otherwise unexplained tachycardia and shortness of breath I did obtain a CT angiogram to further characterize effusion and also to rule out pulmonary embolism. Findings as above show no acute findings. I did not initially pursue infectious etiology as the patient states that he has had his urine checked recently. However given otherwise unexplained tachycardia did repeat urinalysis which shows infection. Lactic acid is normal. Urine and blood cultures were sent. Patient was treated with IV Zosyn and will be admitted. ED Disposition - Plan for ED Patient: Disposition: Acute Care [facility] Diagnosis: UTI (urinary tract infection), Dyspnea Referrals: Dutch Lee III, MD [Primary Care Provider] -
[2019-05-08] MEDS: LORazepam 1 MG Tablet PO (23:46)
[2019-05-08 23:49] LABS: Absolute Lymphocyte Count 0.94 X10^3/uL (0.83-4.51); Absolute Neutrophil Count 5.6 X10^3/uL (2.0-7.7); Basophil# 0.03 X10^3/uL; Basophil% 0.4 % (0-1); Eosinophils% 2.6 % (0-5); Hematocrit 30.3 % (40-54); Hemoglobin 9.9 g/dL (13.0-16.5); Lymphocyte # 0.94 X10^3/ul (4.0); Lymphocyte % 12.5 % (19-41); Mean Corp Hgb Conc 32.7 g/dL (32-36); Mean Corpuscular Hgb 27.6 pg (27.0-32.0); Mean Corpuscular Volume 84.4 fL (80-94); Mean Platelet Vol. 9.8 fl (6.2-12.0); Monocyte# 0.64 X10^3/uL; Monocyte% 8.5 % (0-10); NRBC Flagged by Analyzer 0 % (0-5); Neutrophil # 5.59 X10^3/uL (2.7-7.7); Platelet Count 288 K/mm3 (150-450); RBC Distribution Width CV 13.5 % (11.6-14.6); RBC Distribution Width SD 41.9 fl (35.1-43.9); Red Blood Count 3.59 M/mm3 (4.6-6.2); White Blood Count 7.6 K/mm3 (4.4-11.0)
[2019-05-09] VITALS (23 sets, daily range): BP systolic 114–149; BP diastolic 51–91; PULSE 87–126; RESP 16–22; TEMP 36.3–37.3; O2SAT 94–100; BMI 22.9; BMI 23.0
[2019-05-09 00:01] LABS: Anion Gap 8 (5-15); BUN 16 mg/dL (7-18); BUN/Creat Ratio 12.8 RATIO (10-20); Calcium,Total 9.1 mg/dL (8.5-10.1); Chloride 107 mmol/L (98-107); Creatinine, Serum 1.25 mg/dL (0.70-1.30); EST Glomerular Filtration Rate 59 mL/min (>60); Est Glom Filt Rate - Afr Amer 71 mL/min (>60); Estimated Creatinine Clearance 40.32 ml/min; Glucose 131 mg/dL (74-106); Potassium 3.7 mmol/L (3.5-5.1); Sodium Level 140 mmol/L (136-145)
--- NOTE | 2019-05-09 00:30 | CT_ITS ---
STUDY: CTA CHEST REASON FOR EXAM: Male, 79 years old. SOB. Heart stent x 5. COPD and sleep apnea RADIATION DOSAGE (If Supplied By Facility): CTDIvol = ( 9.00 ) mGy, DLP = ( 345.15 ) mGycm TECHNIQUE: The examination was performed with the intravenous administration of Isovue 370 75ml. Post-processing of the angiographic images was performed, with multiplanar reformation and 3D reconstruction. Individualized dose optimization techniques were used for this CT. COMPARISON: Chest x-ray 05/08/2019. CT chest 04/13/2019. 07/22/2018. 08/26/2015 FINDINGS: Normal enhancement of the main pulmonary artery and right and left pulmonary arteries. Normal enhancement of the bilateral peripheral pulmonary arteries. There is no demonstrated pulmonary embolism. Normal thoracic aorta and visualized great vessels. There is no demonstrated aortic dissection. There is stable anterior pericardial effusion with a width of 1.6 cm. Majority measures near fluid density, there are streak artifacts caused by adjacent contrast.. There are calcifications of the coronary arteries. Normal mediastinum. Normal hilar regions. Normal visualized trachea and bronchi. The lungs are well expanded. Severe emphysema with bilateral upper lobe postsurgical changes, distortion of parenchyma and a few stable scattered tiny calcified nodules, stable pleural-based nodule in the left lower lobe 0.5 x 0.6 cm image 73 series 2 with adjacent pleural thickening, indistinct nodular contour image 73 series 20.6 x 0.6 cm Normal pleura. Normal chest wall structures. There are degenerative changes of thoracic spine. Generalized osteoporosis. Nodular low attenuation of the right adrenal gland 1.5 cm. Lobular probably septated low-attenuation in the liver, in the left lobe measuring 4.1 x 4 dome of the liver 2.9 x 3.8 cm with multiple subcentimeter low attenuations most consistent with cysts. Atherosclerosis of the upper abdominal aorta and branches. CT/CTA Chest W/WO Contrast IMPRESSION: No demonstrated pulmonary embolism, aneurysm, leak or arterial dissection. Small pleural-based nodule left lower lobe currently 0.6 x 0.5 cm stable since most recent examination, slightly increased in size since August 26, 2015 from 0.4 x 0.5 cm with no indistinct pleural nodular density. Consider follow-up examination in 6 months. No pulmonary edema, congestive heart failure or confluent pneumonia. Stable hepatic cysts, right adrenal nodule in the upper abdomen. Severe emphysema with postsurgical changes, stable small scattered calcified nodules, and moderate anterior pericardial effusion, atherosclerosis and coronary artery disease are stable findings. Electronically Signed: Renetta Garcia MD at 1:42 EST , Service support ,
[2019-05-09 00:42] LABS: Mucous, Urine 0 SEEN /hpf (<or=2+); Squamous Epithelial Cells - UA 0 SEEN /hpf (0-5)
[2019-05-09 01:06] LABS: Color, Urine Yellow (Yellow); Glucose, Dipstick Normal (Normal); Ketone-Dipstick 15 mg/dl (Negative); Leukocyte Esterase-Dipstick 500 /ul (Negative); Nitrite-Dipstick Positive (Negative); Occult Blood-Urine 50 /ul (Negative); Protein-Dipstick 15 mg/dl (Negative); Urine Bilirubin Dipstick Negative (Negative); Urine Clarity Sl. Cloudy (Clear); Urine Urobilinogen Normal (Normal)
[2019-05-09 01:13] LABS: Bacteria 2+ /hpf (None Seen); Red Blood Cells-Urine 10-25 SEEN /hpf (0-5); White Blood Cells 25-50 SEEN /hpf (0-5)
[2019-05-09 02:21] LABS: Lactic Acid 1.3 mmol/L (0.4-1.9)
[2019-05-09] MEDS: 0.9% Normal Saline 1,000 ML 999 ML IV (02:21)
--- NOTE | 2019-05-09 02:40 | HP.PCM_ITS ---
Problem List (1) Sepsis Status: Acute (2) Cystitis Status: Acute (3) Acute respiratory failure with hypoxemia Status: Inactive (4) Respiratory distress Status: Chronic (5) Hematuria Status: Acute (6) Acute urinary retention Status: Chronic (7) UTI (urinary tract infection) Status: Acute (8) Dyspnea Status: Acute (9) S/P coronary artery stent placement Status: Chronic Comment: PTCA/stent to mid RCA @ [facility] 10/18/01; PTCA/TAMI of the prox Diag #1, PTCA/TAMI of the prox LAD, PTCA/TAMI of the mid LCX 10/12/18; PTCA/TAMI to mid RCA and PTCA/TAMI to prox/ostial RCA 11/07/18 (10) Atherosclerotic heart disease of [place] coronary artery without angina pectoris Status: Chronic Qualifiers: [place] vs. transplanted heart: [place] heart Qualified Code(s): I25.10 - Atherosclerotic heart disease of [place] coronary artery without angina pectoris (11) Normochromic normocytic anemia Status: Chronic (12) Chronic renal failure, stage 2 (mild) Status: Chronic (13) CARLIN (obstructive sleep apnea) Status: Chronic (14) GERD (gastroesophageal reflux disease) Status: Chronic (15) Abnormal stress test Status: Chronic (16) Anxiety disorder Status: Chronic Comment: with panic attacks (17) COPD (chronic obstructive pulmonary disease) Status: Chronic Qualifiers: COPD type: COPD with acute exacerbation Qualified Code(s): J44.1 - Chronic obstructive pulmonary disease with (acute) exacerbation (18) History of coronary angioplasty Status: Chronic (19) Type II diabetes mellitus Status: Chronic (20) Acute exacerbation of chronic obstructive pulmonary disease (COPD) Status: Inactive (21) Chest pain Status: Inactive History of Present Illness Date of Admission: 05/09/19 Chief Complaint: Shortness of breath The patient is a 79 year old M with a considering a history of type 2 diabetes; obstructive sleep apnea; CAD status post stents; former smoker; COPD with lo bectomy who presents at the emergency department with shortness of breath starting the same day of presentation. Associated with his symptoms is dysuria and increased frequency of urination. His shortness of breath occurred at rest and worsened with mild exertion. His shortness of breath has been progressively worsening. Of note patient had a UroLift procedure with Dr. Burnette about a week ago. Because of dysuria the patient was given Pyridium by urologist. On the morning of the day of presentation he had normal urinalysis at the urologist office. At the emergency department patient had tachycardia and tachypnea. His urine was abnormal. Culture and urine culture was obtained and patient was started on antibiotics. Past Medical History Past Medical History (Chronic Problems): Chronic Problems (Last Reviewed 05/09/19 @ 05:42 by Nino Calderón MD) Respiratory distress (Chronic) Acute urinary retention (Chronic) S/P coronary artery stent placement (Chronic ~11/07/18) PTCA/stent to mid RCA @ [facility] 10/18/01; PTCA/TAMI of the prox Diag #1, PTCA/TAMI of the prox LAD, PTCA/TAMI of the mid LCX 10/12/18; PTCA/TAMI to mid RCA and PT CA/TAMI to prox/ostial RCA 11/07/18 Atherosclerotic heart disease of [place] coronary artery without angina pectoris (Chronic) Normochromic normocytic anemia (Chronic) Chronic renal failure, stage 2 (mild) (Chronic) CARLIN (obstructive sleep apnea) (Chronic) GERD (gastroesophageal reflux disease) (Chronic) Abnormal stress test (Chronic) Anxiety disorder (Chronic) with panic attacks COPD (chronic obstructive pulmonary disease) (Chronic) History of coronary angioplasty (Chronic) Type II diabetes mellitus (Chronic) Medical History: Medical History (Last Reviewed 05/09/19 @ 05:42 by Nino Calderón MD) S/P coronary artery stent placement (Chronic) Onset Date: ~11/07/18 Z95.5 PTCA/stent to mid RCA @ [facility] 10/18/01; PTCA/TAMI of the prox Diag #1, PTCA/TAMI of the prox LAD, PTCA/TAMI of the mid LCX 10/12/18; PTCA/TAMI to mid RCA and PTCA/TAMI to prox/ostial RCA 11/07/18 Atherosclerotic heart disease of [place] coronary artery without angina pectoris (Chronic) I25.10 Chest pain (Inactive) R07.9 Chronic renal failure, stage 2 (mild) (Chronic) N18.2 CARLIN (obstructive sleep apnea) (Chronic) G47.33 GERD (gastroesophageal reflux disease) (Chronic) K21.9 Abnormal stress test (Chronic) R94.39 Anxiety disorder (Chronic) F41.9 with panic attacks COPD (chronic obstructive pulmonary disease) (Chronic) J44.9 Type II diabetes mellitus (Chronic) E11.9 BPH (benign prostatic hyperplasia) N40.0 Former smoker Z87.891 quit in the early History of malignant neoplasm of lung Z85.118 in 2010? Allergies gabapentin Allergy (Unknown, Verified 04/11/19 03:04) Unknown acetylcysteine [From Mucomyst] Allergy (Verified 04/11/19 03:04) Shortness of breath alprazolam [From Xanax] Allergy (Verified 04/11/19 03:04) breathing issues belladonna alkaloids Allergy (Verified 04/11/19 03:04) Unknown cephalexin Allergy (Verified 04/11/19 03:04) Unknown ciprofloxacin [From Cipro] Allergy (Verified 04/11/19 03:04) Unknown dicyclomine Allergy (Verified 04/11/19 03:04) Unknown diltiazem Allergy (Verified 05/08/19 23:16) Unknown doxycycline Allergy (Verified 05/08/19 23:16) Shortness of breath ezetimibe Allergy (Verified 05/08/19 23:16) Unknown fluvastatin Allergy (Verified 05/08/19 23:16) Unknown metoprolol [From Toprol XL] Allergy (Verified 05/08/19 23:16) Unknown nitrofurantoin Allergy (Verified 05/08/19 23:16) Unknown phenobarbital Allergy (Verified 05/08/19 23:16) Unknown prochlorperazine [From Compazine] Allergy (Verified 05/08/19 23:16) Unknown simvastatin [From Zocor] Allergy (Verified 05/08/19 23:16) Unknown Uuvtysv-Lbs-Kwy Reductase Inhibitor Allergy (Verified 05/08/19 23:16) Unknown sulfamethoxazole [From Bactrim] Allergy (Verified 05/08/19 23:16) Unknown tamsulosin [From Flomax] Allergy (Verified 05/08/19 23:16) Unknown trimethoprim [From Bactrim] Allergy (Verified 05/08/19 23:16) Unknown carvedilol Adverse Reaction (Verified 05/08/19 23:16) Vomiting Home Medications: Ambulatory Orders Medication Instructions Recorded Aspirin [Aspirin, Baby] 81 mg PO DAILY@0800 11/13/15 Doxazosin Mesylate [Cardura] 4 mg PO QHS 08/10/16 Finasteride [Proscar] 5 mg PO DAILY 11/13/15 Mirtazapine [Remeron] 30 mg PO QHS 11/13/15 Theophylline [Kevin-Dur] 300 mg PO BID 11/13/15 prednisoLONE eye drops (1 mL) 1 drp RIGHT EYE 4X/DAY PRN PRN 11/13/15 [Pred Forte eye drops (1 mL)] Guaifenesin [Mucinex] 1,200 mg PO BID PRN 07/29/17 Albuterol Inhaler [Ventolin Hfa] 1 - 2 puff INHALATION Q4H PRN PRN 08/26/17 #1 inhaler Ipratropium/Albuterol Sulfate 3 ml INHALATION 4X/DAY PRN PRN 03/11/18 [Duoneb] Nitroglycerin (INPATIENT USE) 0.4 mg SUBLINGUAL Q5M PRN 03/11/18 [Nitrostat] Roflumilast [Daliresp] 500 mcg PO DAILY 03/11/18 Furosemide [Lasix] 20 mg PO DAILY PRN 10/10/18 primidone 50 mg tablet 50 mg PO BID tab 10/27/18 Fluticasone/Vilanterol [Breo 1 ea IH DAILY 03/26/19 Ellipta 100-25 Mcg INH] Acetaminophen [Tylenol] 650 mg PO Q4H PRN PRN 04/11/19 Budesonide/Formoterol 160/4.5 2 puff INHALATION BID 04/11/19 [Symbicort 160/4.5 Mcg Inhaler (SP)] Escitalopram Oxalate [Lexapro] 10 mg PO DAILY 04/11/19 Magnesium Citrate [Citrate of 300 ml PO DAILY PRN PRN 04/11/19 Magnesia] Lorazepam [Ativan] 1 mg PO BID #10 tab 04/15/19 Azithromycin 250 mg PO DAILY 05/08/19 Benzonatate [Tessalon Perle] 100 mg PO TID PRN 05/08/19 Losartan Potassium 25 mg PO DAILY 05/08/19 Omeprazole 20 mg PO DAILY 05/08/19 Clopidogrel Bisulfate [Clopidogrel] 75 mg PO DAILY 05/09/19 Digoxin 125 mcg PO DAILY 05/09/19 Surgical History: Surgical History (Last Reviewed 05/09/19 @ 05:42 by Nino Calderón MD) 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 BL upper lobes Presence of coronary angioplasty implant and graft Onset Date: ~11/07/18 Z95.5 PTCA/stent to mid RCA @ [facility] 10/18/01; PTCA/TAMI of the prox Diag #1, PTCA/TAMI of the prox LAD, PTCA/TAMI of the mid LCX 10/12/18; ; PTCA/TAMI to mid RCA and PTCA/TAMI to prox/ostial RCA 11/07/18 Surgical History: - - Lobectomy, cardiac stent placement Psychiatric History: Anxiety - With panic attacks, Depression Lives: Spouse/ Significant Other Smoking Status: Former smoker Tobacco Use: Cigarettes - *Family History Maternal Family History: Family History (Last Reviewed 05/09/19 @ 05:42 by Nino Calderón MD) Mother CAD (coronary artery disease) Hypertension Brother CAD (coronary artery disease) Hypertension Other Heart disease History Items: Hypertension Paternal Family History: Family History (Last Reviewed 05/09/19 @ 05:42 by Nino Calderón MD) Mother CAD (coronary artery disease) Hypertension Brother CAD (coronary artery disease) Hypertension Other Heart disease History Items: - - father was a smoker with copd Review of Systems Constitutional: Denies: Chills, Fever, Weight Change HEENT: Denies: Head Aches, Sinus Congestion, Sinus Drainage Cardiovascular: Denies: Chest Pain, Palpitations Respiratory: Reports: Shortness of Breath. Denies: Cough, Shortness of breath at rest, Sputum production Gastrointestinal: Denies: Abdominal Pain, Nausea, Vomiting Genitourinary: Reports: Dysuria, Frequency Musculoskeletal: Denies: Joint Pain, Joint Tenderness Skin: Denies: Rash, Wounds Neurological: Denies: Numbness, Tingling, Focal weakness Psychiatric: Reports: Anxiety, Depression. Denies: Homicidal Ideations, Suicidal Ideations Hematologic/ Lymphatic: Denies: Easy Bruising, Easy Bleeding VTE Information - Inpt Only VTE Present on Admission: No VTE Mechan Device Prophylaxis: None VTE Pharm Prophylaxis ordered?: Yes Patient Problems: Active and Suspected Problems (Last Reviewed 05/09/19 @ 05:42 by Nino Calderón MD) UTI (urinary tract infection) (Acute) Dyspnea (Acute) Sepsis (Acute) Cystitis (Acute) - Physical Exam Vitals/I&O's: Vital Signs Temp Pulse Resp BP Pulse Ox 98.6 F 114 H 22 H 129/66 H 95 05/09/19 02:21 05/09/19 02:21 05/09/19 02:21 05/09/19 02:21 05/09/19 02:21 Oxygen Delivery Method Room Air Weight: 67 kg Body Mass Index (BMI) 24.5 General: Alert, Oriented x3, Cooperative HEENT: Atraumatic, PERRLA, EOMI, Normocephalic Neck: Supple, No JVD, Negative Carotid Bruits Lungs: Clear to auscultation, Normal air movement, Tachypneic Cardiovascular: Normal S1, Normal S2, No murmurs, Tachycardic Abdomen: Bowel Sounds Present, Soft, Tender - Tender at suprapubic area. Nontender in abdomen. No costovertebral angle tenderness. Extremities: Capillary Refill Less than 3 Seconds, Edema - Bilateral feet Skin: No rashes, No breakdown Musculoskeletal: No Tenderness to Palpation of Joints or Extremities Neurological: Cranial nerves II-XII grossly intact Psych/Mental Status: Anxious Laboratory Results 05/08/19 23:20: WBC 7.6, RBC 3.59 L, Hgb 9.9 L, Hct 30.3 L, MCV 84.4, MCH 27.6, MCHC 32.7, RDW Std Deviation 41.9, RDW Coeff of Ye 13.5, Plt Count 288, MPV 9.8, Immature Gran % (Auto) 2.000 H, Neut % (Auto) 74.0 H, Lymph % (Auto) 12.5 L , Cole % (Auto) 8.5, Eos % (Auto) 2.6, Baso % (Auto) 0.4, Absolute Neuts (auto) 5.6, Absolute Lymphs (auto) 0.94, Nucleated RBC % 0 05/08/19 23:20: Sodium 140, Potassium 3.7, Chloride 107, Carbon Dioxide 25.0, Anion Gap 8, BUN 16, Creatinine 1.25, Estim Creat Clear Calc 40.32, Est GFR (MDRD) Af Amer 71, Est GFR (MDRD) Non-Af 59 L, BUN/Creatinine Ratio 12.8, Glucose 131 H, Calcium 9.1, Troponin I < 0.015 05/08/19 23:20: Lactic Acid 1.3 05/09/19 00:10: Urine Color Yellow, Urine Clarity Sl. Cloudy, Urine pH 7.0, Ur Specific [place] 1.010, Urine Protein 15 H, Urine Glucose (UA) Normal, Urine Ketones 15 H, Urine Occult Blood 50 H, Urine Nitrite Positive H, Urine Bilirubin Negative, Urine Urobilinogen Normal, Ur Leukocyte Esterase 500 H, Urine RBC 10- 25 SEEN, Urine WBC 25-50 SEEN, Ur Squamous Epith Cells 0 SEEN, Urine Bacteria 2+, Urine Mucus 0 SEEN Current Medications Sodium Chloride () 1,000 mls @ 999 mls/hr IV .Q1H1M ONE Stop: 05/09/19 03:03 Last Admin: 05/09/19 02:21 Dose: 999 mls/hr Documented by: Assessment/Plan All Active Problems (Last Reviewed 05/09/19 @ 05:42 by Nino Calderón MD) Hematuria (Acute) UTI (urinary tract infection) (Acute) Dyspnea (Acute) Sepsis (Acute) Cystitis (Acute) The patient is a 79 year old M with a considering a history of type 2 diabetes; obstructive sleep apnea; CAD status post stents; former smoker; COPD with lung resection who presents emergency department with shortness of breath starting the same day of presentation; dysuria and increased frequency of urination in the setting of recent UroLift and found to tachycardia; tachypnea and abnormal urinalysis consistent with sepsis secondary to acute cystitis. Sepsis secondary to acute cystitis Sirs criteria: Heart rate more than 90; and respiratory rate more than 20. White counts normal. However with bandemia. Lactic acid is unremarkable. Source of infection: Abnormal urinalysis in the setting of recent UroLift. Because of multiple allergies Zosyn was chosen. Will continue Zosyn. Follow urine culture and blood culture. Because shortness of breath chest CT was obtained. Chest CT did not show any acute findings except right adrenal nodule in the upper abdomen. Right adrenal nodule Will check a cortisol level and plasma catecholamines. Anxiety and depression Ativan continued. Mirtazapine continued COPD Status post lobectomy. Patient reported that resected part of lung incidentally showed cancer. Azithromycin continued. Home breathing treatments continued. Theophylline and Daliresp's continued CAD Aspirin and Plavix continued. Hypertension On presentation blood pressure was not within goal Losartan continued Trend blood pressure and adjust blood pressure medication Diabetes mellitus Likely contributed to CKD stage II. Hyperglycemia on presentation. Trend BMP. Calorie controlled diet. CKD stage II Stable Likely from diabetes mellitus. DVT prophylaxis Subcutaneous Lovenox. Code Visit Inpatient E&M: 86621 Init Hosp L3
[2019-05-09] MEDS: Acetaminophen 325 MG Tablet 650 MG PO ×2 (04:27→11:50)
[2019-05-09] MEDS: Ipratropium/Albuterol Sulfate 3 ML AMPUL.NEB INHALATION ×6 (04:55→23:24)
[2019-05-09 05:24] LABS: Absolute Lymphocyte Count 1.04 X10^3/uL (0.83-4.51); Absolute Neutrophil Count 4.4 X10^3/uL (2.0-7.7); Basophil# 0.03 X10^3/uL; Basophil% 0.5 % (0-1); Eosinophil# 0.22 X10^3/uL; Eosinophils% 3.5 % (0-5); Hematocrit 29.6 % (40-54); Hemoglobin 9.3 g/dL (13.0-16.5); Lymphocyte # 1.04 X10^3/ul (4.0); Lymphocyte % 16.5 % (19-41); Mean Corp Hgb Conc 31.4 g/dL (32-36); Mean Platelet Vol. 9.8 fl (6.2-12.0); Monocyte# 0.53 X10^3/uL; Monocyte% 8.4 % (0-10); NRBC Flagged by Analyzer 0 % (0-5); Neutrophil # 4.44 X10^3/uL (2.7-7.7); Neutrophil % 70.2 % (47-70); Platelet Count 279 K/mm3 (150-450); RBC Distribution Width CV 13.6 % (11.6-14.6); RBC Distribution Width SD 42.5 fl (35.1-43.9); Red Blood Count 3.44 M/mm3 (4.6-6.2); White Blood Count 6.3 K/mm3 (4.4-11.0)
[2019-05-09 05:30] LABS: Anion Gap 6 (5-15); BUN 13 mg/dL (7-18); Calcium,Total 8.9 mg/dL (8.5-10.1); Chloride 108 mmol/L (98-107); Creatinine, Serum 1.08 mg/dL (0.70-1.30); EST Glomerular Filtration Rate 70 mL/min (>60); Est Glom Filt Rate - Afr Amer 84 mL/min (>60); Estimated Creatinine Clearance 48.41 ml/min; Glucose 116 mg/dL (74-106); Potassium 3.7 mmol/L (3.5-5.1); Sodium Level 141 mmol/L (136-145)
[2019-05-09] MEDS: Budesonide Respules 0.5 MG/2 ML AMPUL.NEB. INHALATION ×2 (07:33→19:04)
[2019-05-09] MEDS: Aspirin 81 MG TAB.CHEW PO (09:37)
[2019-05-09] MEDS: Glucerna Shake 120 ML LIQUID PO (09:37)
[2019-05-09] MEDS: Losartan Potassium 25 MG Tablet PO (09:42)
[2019-05-09] MEDS: LORazepam 1 MG Tablet PO ×2 (09:42→21:52)
[2019-05-09] MEDS: Digoxin 125 MCG Tablet PO (09:43)
[2019-05-09] MEDS: Azithromycin 250 MG Tablet PO (09:43)
[2019-05-09] MEDS: Enoxaparin 40 MG/0.4 ML Syringe SC (09:43)
[2019-05-09] MEDS: Pantoprazole Sodium 20 MG Tablet PO (09:44)
[2019-05-09] MEDS: Clopidogrel Bisulfate 75 MG Tablet PO (09:44)
[2019-05-09] MEDS: Finasteride 5 MG Tablet PO (09:45)
[2019-05-09] MEDS: Primidone 50 MG Tablet PO (09:45)
--- NOTE | 2019-05-09 11:34 | NURSING ---
Student documentation reviewed.
--- NOTE | 2019-05-09 11:45 | CASEMGMT ---
SOFIA PERSON Face to Face with patient for initial transition planning/care coordination assessment. SOFIA PERSON introduced self and role at [facility]. Patient lying in bed, alert and oriented. Patient willing to participate in assessment and is able to answer all questions appropriately. Care providers, pharmacy, and demographics verified. Patient wishes to discharge home with resumption of HHC with [facility]. Patient states he has no further needs or concerns at this time. CM to follow for discharge planning needs that may arise. 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 Patient states he is independent at home. Transportation: self/ DME/HHC: Patient states he has nebulizer, cpap, walker, and shower chair at home. Patient states he was just discharged from [facility] about a week ago. Patient states he has HHC with [facility]. SOFIA PERSON called and updated [facility] regarding patient's admission. [facility] confirmed services of alf and PT/OT. Will monitor for need for home oxygen at discharge. Disposition Plan: Patient to discharge home with resumption of HHC, family support, and follow-up plans in place. Alayna HUTTON, RN, CM
--- NOTE | 2019-05-09 12:20 | PN_ITS ---
Patient Problems: Active and Suspected Problems (Last Reviewed 05/09/19 @ 05:42 by Nino Calderón MD) UTI (urinary tract infection) (Acute) Dyspnea (Acute) Sepsis (Acute) Cystitis (Acute) Reason for Visit: UTI Subjective: Complains of dysuria. States the main reason he came in was because of SOB. Take s lorazepam BID for shortness of breath. the 0.5mg did not help him, so he is on 1 mg. Vitals/I&O's: Vital Signs Temp Pulse Resp BP Pulse Ox 36.7 C 108 H 17 119/62 95 05/09/19 10:12 05/09/19 11:00 05/09/19 11:00 05/09/19 10:12 05/09/19 10:30 Oxygen Delivery Method Room Air Weight: 64.5 kg Body Mass Index (BMI) 22.9 Intake and Output for Last 24 Hours 05/07/19 05/08/19 05/09/19 23:59 23:59 23:59 Intake Total 1720 / 1720 Output Total 950 / 950 Balance 770 / 770 General: Alert, No apparent distress HEENT: Atraumatic, Normocephalic Oral: Moist Mucosa, No Gingival or Mucosal Lesions/ Ulcerations Neck: No Nodes, Trachea Midline Lungs: Clear to auscultation, Normal air movement, No rhonchi, No wheeze Cardiovascular: Regular rate, Regular Rhythm, Normal S1, Normal S2, No murmurs Abdomen: Bowel Sounds Present, Soft, Non Tender, Non-Distended, No Hepato- splenomegaly Extremities: No edema, No Calf Tenderness Skin: No rashes, No breakdown Musculoskeletal: No Tenderness to Palpation of Joints or Extremities, No Muscle Wasting Psych/Mental Status: Normal Affect, Appropriate Laboratory Results 05/08/19 23:20: WBC 7.6, RBC 3.59 L, Hgb 9.9 L, Hct 30.3 L, MCV 84.4, MCH 27.6, MCHC 32.7, RDW Std Deviation 41.9, RDW Coeff of Ye 13.5, Plt Count 288, MPV 9.8, Immature Gran % (Auto) 2.000 H, Neut % (Auto) 74.0 H, Lymph % (Auto) 12.5 L , [place] % (Auto) 8.5, Eos % (Auto) 2.6, Baso % (Auto) 0.4, Absolute Neuts (auto) 5.6, Absolute Lymphs (auto) 0.94, Nucleated RBC % 0 05/08/19 23:20: Sodium 140, Potassium 3.7, Chloride 107, Carbon Dioxide 25.0, Anion Gap 8, BUN 16, Creatinine 1.25, Estim Creat Clear Calc 40.32, Est GFR (MDRD) Af Amer 71, Est GFR (MDRD) Non-Af 59 L, BUN/Creatinine Ratio 12.8, Glucose 131 H, Calcium 9.1, Troponin I < 0.015 05/08/19 23:20: Lactic Acid 1.3 05/09/19 00:10: Urine Color Yellow, Urine Clarity Sl. Cloudy, Urine pH 7.0, Ur Specific [place] 1.010, Urine Protein 15 H, Urine Glucose (UA) Normal, Urine Ketones 15 H, Urine Occult Blood 50 H, Urine Nitrite Positive H, Urine Bilirubin Negative, Urine Urobilinogen Normal, Ur Leukocyte Esterase 500 H, Urine RBC 10- 25 SEEN, Urine WBC 25-50 SEEN, Ur Squamous Epith Cells 0 SEEN, Urine Bacteria 2+, Urine Mucus 0 SEEN 05/09/19 05:00: WBC 6.3, RBC 3.44 L, Hgb 9.3 L, Hct 29.6 L, MCV 86.0, MCH 27.0, MCHC 31.4 L, RDW Std Deviation 42.5, RDW Coeff of Ye 13.6, Plt Count 279, MPV 9.8, Immature Gran % (Auto) 0.900, Neut % (Auto) 70.2 H, Lymph % (Auto) 16.5 L, [place] % (Auto) 8.4, Eos % (Auto) 3.5, Baso % (Auto) 0.5, Absolute Neuts (auto) 4.4, Absolute Lymphs (auto) 1.04, Nucleated RBC % 0 05/09/19 05:00: Sodium 141, Potassium 3.7, Chloride 108 H, Carbon Dioxide 27.0, Anion Gap 6, BUN 13, Creatinine 1.08, Estim Creat Clear Calc 48.41, Est GFR (MDRD) Af Amer 84, Est GFR (MDRD) Non-Af 70, BUN/Creatinine Ratio 12.0, Glucose 116 H, Calcium 8.9 05/09/19 05:00: Cortisol 13.00 05/09/19 05:00: Plas Tot Catecholamine Pending, Dopamine Pending, Epinephrine Pending, Norepinephrine Pending Current Medications Acetaminophen (Tylenol) 650 mg PO Q6H PRN PRN PRN Reason: Pain Score 1-10/Temp > 100.7 F Last Admin: 05/09/19 11:50 Dose: 650 mg Documented by: Albuterol/Ipratropium (Duoneb) 3 ml INHALATION Q4H.RT PRN PRN Reason: SOB &/OR WHEEZING Last Admin: 05/09/19 10:30 Dose: 3 ml Documented by: Aspirin (Aspirin, Baby) 81 mg PO DAILY@0800 [facility] Last Admin: 05/09/19 09:37 Dose: 81 mg Documented by: Azithromycin (Zithromax) 250 mg PO DAILY [facility] Last Admin: 05/09/19 09:43 Dose: 250 mg Documented by: Benzonatate (Tessalon Perle) 100 mg PO TID PRN PRN PRN Reason: COUGH Budesonide (Pulmicort Aerosol) 0.5 mg INHALATION Q12H.RT [facility] Last Admin: 05/09/19 07:33 Dose: 0.5 mg Documented by: Clopidogrel Bisulfate (Plavix) 75 mg PO DAILY [facility] Last Admin: 05/09/19 09:44 Dose: 75 mg Documented by: Digoxin (Lanoxin) 125 mcg PO DAILY [facility] Last Admin: 05/09/19 09:43 Dose: 125 mcg Documented by: Doxazosin Mesylate (Cardura) 4 mg PO QHS [facility] Enoxaparin Sodium (Lovenox) 40 mg SC DAILY [facility] Last Admin: 05/09/19 09:43 Dose: 40 mg Documented by: Finasteride (Proscar) 5 mg PO DAILY [facility] Last Admin: 05/09/19 09:45 Dose: 5 mg Documented by: Furosemide (Lasix) 20 mg PO DAILY PRN PRN PRN Reason: edema Glucagon () 1 mg IM .X1 PRN PRN Reason: Hypoglycemia Piperacillin Sod/Tazobactam (Sod 3.375 gm/ Sodium Chloride) 50 mls @ 12.5 mls/hr IV Q12 [facility] Last Admin: 05/09/19 11:49 Dose: 12.5 mls/hr Documented by: Dextrose (Dextrose 10%-Water) 250 mls @ 999 mls/hr IV .Q16M PRN; Protocol PRN Reason: HYPOGLYCEMIA Sodium Chloride () 250 mls @ 15 mls/hr IV .[id number] PRN PRN Reason: Saline Flush Sodium Chloride () 250 mls @ 15 mls/hr IV .[id number] PRN PRN Reason: Additional IVPB Infusion Lorazepam (Ativan) 1 mg PO BID [facility] Last Admin: 05/09/19 09:42 Dose: 1 mg Documented by: Losartan Potassium (Cozaar) 25 mg PO DAILY [facility] Last Admin: 05/09/19 09:42 Dose: 25 mg Documented by: Magnesium Citrate (Citrate Of Magnesia) 300 ml PO DAILY PRN PRN PRN Reason: Constipation Mirtazapine (Remeron) 30 mg PO QHS [facility] Non-Formulary Medication (Roflumilast) 500 mcg PO DAILY [facility] Nutritional Formula (Lactose Free) (Glucerna Shake) 120 ml PO TIDCM [facility] Last Admin: 05/09/19 12:12 Dose: Not Given Documented by: Ondansetron HCl (Zofran) 4 mg IV Q8H PRN PRN PRN Reason: NAUSEA/VOMITING Pantoprazole Sodium (Protonix) 20 mg PO DAILY [facility] Last Admin: 05/09/19 09:44 Dose: 20 mg Documented by: Prednisolone Acetate (Pred Forte Eye Drops (5 Ml)) 1 drop OPHTHALMIC 4X/DAY PRN PRN PRN Reason: DRY EYES Primidone (Mysoline) 50 mg PO BID [facility] Last Admin: 05/09/19 09:45 Dose: 50 mg Documented by: Sodium Chloride () 10 - 40 ml IV UD PRN PRN Reason: SALINE FLUSH Theophylline (Kevin-Dur) 300 mg PO BID [facility] Last Admin: 05/09/19 09:48 Dose: 300 mg Documented by: STROKE Vital Signs/Narrative: Vital Signs Temp Pulse Resp BP Pulse Ox 05/09/19 11:00 108 H 17 05/09/19 10:58 117 H 05/09/19 10:30 112 H 20 H 95 05/09/19 10:12 36.7 C 102 H 20 H 119/62 05/09/19 09:43 103 H Medical Necessity - Tobacco Use Smoking Status: Former smoker Tobacco Use: Cigarettes Assessment/Plan All Active Problems (Last Reviewed 05/09/19 @ 05:42 by Nino Calderón MD) Hematuria (Acute) UTI (urinary tract infection) (Acute) Dyspnea (Acute) Sepsis (Acute) Cystitis (Acute) 1. sepsis * 2/2 UTI 2. UTI * continuye pip/tazo * adjust abx according to Cx results. * post UroLift, though suspect a standard UTI, if failure to progress or worsens would involve to ensure the device is not compromise. 3. Chronic BZD dependence * had long conversation with the patient about BZD * reviewed his OARRS which showed that he has been receiving for a long time and has been on the same dose (1mg BID) during this time, though it does appear that a lower dose was tried at one point * Advised patient speak with his PCP about being tapered off it * Warned patient against stopping briefly given potential for significant withdrawal symptoms. * Patient did not seem receptive to any changes with this medication 4. COPD * stable * on Room Air * DC azithromycin 5. VTE prophylaxis: LMWH. Code Visit Procedures: Other Procedure - See Report - non-billable rounding as patient seen after midnight.
[2019-05-09] MEDS: Doxazosin 4 MG Tablet PO (21:53)
[2019-05-09] MEDS: Mirtazapine 30 MG Tablet PO (21:53)
[2019-05-10] VITALS (18 sets, daily range): BP systolic 95–123; BP diastolic 48–71; PULSE 66–124; RESP 18–22; TEMP 36.4–37.1; O2SAT 93–99
[2019-05-10] MEDS: Ipratropium/Albuterol Sulfate 3 ML AMPUL.NEB INHALATION ×6 (03:50→23:30)
[2019-05-10] MEDS: Budesonide Respules 0.5 MG/2 ML AMPUL.NEB. INHALATION (07:46)
[2019-05-10] MEDS: LORazepam 1 MG Tablet PO ×2 (08:30→21:31)
[2019-05-10] MEDS: Losartan Potassium 25 MG Tablet PO (08:32)
[2019-05-10] MEDS: Finasteride 5 MG Tablet PO (08:32)
[2019-05-10] MEDS: Pantoprazole Sodium 20 MG Tablet PO (08:32)
[2019-05-10] MEDS: Aspirin 81 MG TAB.CHEW PO (08:32)
[2019-05-10] MEDS: Azithromycin 250 MG Tablet PO (08:32)
[2019-05-10] MEDS: Digoxin 125 MCG Tablet PO (08:32)
[2019-05-10] MEDS: Enoxaparin 40 MG/0.4 ML Syringe SC (08:34)
[2019-05-10] MEDS: Clopidogrel Bisulfate 75 MG Tablet PO (08:34)
[2019-05-10] MEDS: ROFLUMILAST 500 MCG TABLET PO (08:34)
--- NOTE | 2019-05-10 09:41 | CASEMGMT ---
Social Work Note SW completed Palliative Care Screening tool, pt scored a 5 would qualify for Palliative Care. SW in to speak with pt. SW introduced self and role at [facility]. Pt is alert and orientated x3. SW educated pt on Palliative Care and provided brochure. Pt states I have enough people, I don't need anyone else. SW encouraged pt to review information and speak with his PCP or specialist Dr. Hernandes regarding Palliative as it could be beneficial for pt. Pt states understanding, denied additional needs or concerns at this time. Again, pt denied Palliative Care referral. Alayna Stephens LUMBER ESTIMATOR, FLOWER CUTTER
--- NOTE | 2019-05-10 09:52 | PCM.PN.HOSP ---
Patient Problems: Active and Suspected Problems (Last Reviewed 05/09/19 @ 05:42 by Nino Calderón MD) UTI (urinary tract infection) (Acute) Dyspnea (Acute) Sepsis (Acute) Cystitis (Acute) Reason for Visit: UTI Subjective: Short of breath at rest this AM, pulse ox reads 96% on RA. Concerned that his oxygen will drop when he ambulates. Still with dysuria. Vitals/I&O's: Vital Signs Temp Pulse Resp BP Pulse Ox 36.8 C 108 H 22 H 123/71 H 93 05/10/19 08:47 05/10/19 08:47 05/10/19 08:47 05/10/19 08:47 05/10/19 08:47 Oxygen Delivery Method Room Air Weight: 64.5 kg Body Mass Index (BMI) 22.9 Intake and Output for Last 24 Hours 05/08/19 05/09/19 05/10/19 23:59 23:59 23:59 Intake Total 3370 / 3870 800 / 800 Output Total 1420 / 1970 850 / 850 Balance 1950 / 1900 -50 / -50 General: Alert, - - anxious. short shallow breaths. HEENT: Atraumatic, Normocephalic Oral: Moist Mucosa, No Gingival or Mucosal Lesions/ Ulcerations Neck: No Nodes, Trachea Midline Lungs: Clear to auscultation, No rhonchi, No wheeze, No rales, Diminished Cardiovascular: Regular rate, Regular Rhythm, Normal S1, Normal S2, No murmurs Abdomen: Bowel Sounds Present, Soft, Non Tender, Non-Distended, No Hepato-splenomegaly Extremities: No edema, No Calf Tenderness Skin: No rashes, No breakdown Musculoskeletal: No Tenderness to Palpation of Joints or Extremities, No Muscle Wasting Psych/Mental Status: Appropriate, Anxious Laboratory Results 05/09/19 05:00: Cortisol 13.00 Current Medications Acetaminophen (Tylenol) 650 mg PO Q6H PRN PRN PRN Reason: Pain Score 1-10/Temp > 100.7 F Last Admin: 05/09/19 11:50 Dose: 650 mg Documented by: Albuterol/Ipratropium (Duoneb) 3 ml INHALATION Q4H.RT PRN PRN Reason: SOB &/OR WHEEZING Last Admin: 05/10/19 07:46 Dose: 3 ml Documented by: Aspirin (Aspirin, Baby) 81 mg PO DAILY@0800 [facility] Last Admin: 05/10/19 08:32 Dose: 81 mg Documented by: Azithromycin (Zithromax) 250 mg PO DAILY [facility] Last Admin: 05/10/19 08:32 Dose: 250 mg Documented by: Benzonatate (Tessalon Perle) 100 mg PO TID PRN PRN PRN Reason: COUGH Budesonide (Pulmicort Aerosol) 0.5 mg INHALATION Q12H.RT [facility] Last Admin: 05/10/19 07:46 Dose: 0.5 mg Documented by: Clopidogrel Bisulfate (Plavix) 75 mg PO DAILY [facility] Last Admin: 05/10/19 08:34 Dose: 75 mg Documented by: Digoxin (Lanoxin) 125 mcg PO DAILY [facility] Last Admin: 05/10/19 08:32 Dose: 125 mcg Documented by: Doxazosin Mesylate (Cardura) 4 mg PO QHS [facility] Last Admin: 05/09/19 21:53 Dose: 4 mg Documented by: Enoxaparin Sodium (Lovenox) 40 mg SC DAILY [facility] Last Admin: 05/10/19 08:34 Dose: 40 mg Documented by: Finasteride (Proscar) 5 mg PO DAILY [facility] Last Admin: 05/10/19 08:32 Dose: 5 mg Documented by: Furosemide (Lasix) 20 mg PO DAILY PRN PRN PRN Reason: edema Glucagon () 1 mg IM .X1 PRN PRN Reason: Hypoglycemia Piperacillin Sod/Tazobactam (Sod 3.375 gm/ Sodium Chloride) 50 mls @ 12.5 mls/hr IV Q12 [facility] Last Infusion: 05/10/19 01:54 Dose: Infused Documented by: Dextrose (Dextrose 10%-Water) 250 mls @ 999 mls/hr IV .Q16M PRN; Protocol PRN Reason: HYPOGLYCEMIA Sodium Chloride () 250 mls @ 15 mls/hr IV .[id number] PRN PRN Reason: Saline Flush Sodium Chloride () 250 mls @ 15 mls/hr IV .[id number] PRN PRN Reason: Additional IVPB Infusion Lorazepam (Ativan) 1 mg PO BID [facility] Last Admin: 05/10/19 08:30 Dose: 1 mg Documented by: Losartan Potassium (Cozaar) 25 mg PO DAILY [facility] Last Admin: 05/10/19 08:32 Dose: 25 mg Documented by: Magnesium Citrate (Citrate Of Magnesia) 300 ml PO DAILY PRN PRN PRN Reason: Constipation Mirtazapine (Remeron) 30 mg PO QHS [facility] Last Admin: 05/09/19 21:53 Dose: 30 mg Documented by: Nutritional Formula (Lactose Free) (Glucerna Shake) 120 ml PO TIDCM [facility] Last Admin: 05/10/19 08:35 Dose: Not Given Documented by: Ondansetron HCl (Zofran) 4 mg IV Q8H PRN PRN PRN Reason: NAUSEA/VOMITING Pantoprazole Sodium (Protonix) 20 mg PO DAILY [facility] Last Admin: 05/10/19 08:32 Dose: 20 mg Documented by: Prednisolone Acetate (Pred Forte Eye Drops (5 Ml)) 1 drop OPHTHALMIC 4X/DAY PRN PRN PRN Reason: DRY EYES Primidone (Mysoline) 50 mg PO BID [facility] Last Admin: 05/10/19 08:39 Dose: Not Given Documented by: Sodium Chloride () 10 - 40 ml IV UD PRN PRN Reason: SALINE FLUSH Theophylline (Kevin-Dur) 300 mg PO BID [facility] Last Admin: 05/10/19 08:34 Dose: 300 mg Documented by: STROKE Vital Signs/Narrative: Vital Signs Temp Pulse Resp BP Pulse Ox 05/10/19 08:47 36.8 C 108 H 22 H 123/71 H 93 05/10/19 08:32 108 H 05/10/19 07:45 116 H 22 H 93 05/10/19 07:32 110 H Medical Necessity - Tobacco Use Smoking Status: Former smoker Tobacco Use: Cigarettes Assessment/Plan All Active Problems (Last Reviewed 05/09/19 @ 05:42 by Nino Calderón MD) Hematuria (Acute) UTI (urinary tract infection) (Acute) Dyspnea (Acute) Sepsis (Acute) Cystitis (Acute) 1. sepsis 2/2 UTI 2. UTI continue pip/tazo adjust abx according to Cx results. culture from 05/09 pending. culture from 05/08 showed MRSA (no UA, however). Will add vanc for now, but if no MRSA, will dc. post UroLift, though suspect a standard UTI, if failure to progress or worsens would involve to ensure the device is not compromised. 3. Anxiety very anxious today states that he is short of breath. Oxygen is 96% on RA. Reassurance attempted, but he was concerned that his oxygen will drop when he is active. Attempted to reassure that that is normal. complicates care 4. Chronic BZD dependence had long conversation with the patient about BZD reviewed his OARRS which showed that he has been receiving for a long time and has been on the same dose (1mg BID) during this time, though it does appear that a lower dose was tried at one point Advised patient speak with his PCP about being tapered off it Warned patient against stopping briefly given potential for significant withdrawal symptoms. Patient did not seem receptive to any changes with this medication 5. COPD stable on Room Air DC azithromycin pulse ox dropped to 87% with ambulation. Will arrange for home oxygen with activity upon discharge follow up with Dr. Hernandes as outpt. 6. VTE prophylaxis: LMWH. Greater than 35 minutes of which greater than 50% of the time was counseling about anxiety, oxygen. Code Visit Inpatient E&M: 91142 Subs Hosp L3
[2019-05-10] MEDS: guaiFENesin 600 MG Tablet PO ×2 (10:18→21:31)
--- NOTE | 2019-05-10 12:25 | NURSING ---
Student documentation reviewed.
--- NOTE | 2019-05-10 12:47 | CASEMGMT ---
LW/POA forms both scanned into summary tab of [facility], Keturah Higgins is listed as medical POA. CHRISTA Lyon
--- NOTE | 2019-05-10 12:59 | PCM.RX.CS ---
Consult Pharmacy has been consulted to manage selected antiobiotic: Vancomycin Type of Consult: New start Suspected Infection: Sepsis, Other Labs: Sodium 141 mmol/L (136-145) 05/09/19 05:00 Potassium 3.7 mmol/L (3.5-5.1) 05/09/19 05:00 Chloride 108 mmol/L (98-107) H 05/09/19 05:00 Carbon Dioxide 27.0 mmol/L (21.0-32.0) 05/09/19 05:00 Anion Gap 6 (5-15) 05/09/19 05:00 BUN 13 mg/dL (7-18) 05/09/19 05:00 Creatinine 1.08 mg/dL (0.70-1.30) 05/09/19 05:00 Est GFR (MDRD) Af Amer 84 mL/min (>60) 05/09/19 05:00 Est GFR (MDRD) Non-Af 70 mL/min (>60) 05/09/19 05:00 BUN/Creatinine Ratio 12.0 RATIO (10-20) 05/09/19 05:00 Glucose 116 mg/dL (74-106) H 05/09/19 05:00 Microbiology: Microbiology 05/09/19 00:10 Urine, Clean Catch Urine Culture - Preliminary Staphylococcus aureus Weight used for dosin.5 kg Estimated Creatinine Clearance: 48.4ML/MIN Goal Trough: 15-20 mcg/mL Pharmacy Plan for Drug Dosing: Give initial dose of 1500mg IV x1, then continue with 500mg IV q12h. Will order a trough level to be drawn before the 4th total dose tomorrow night. Pharmacy Service will continue to monitor and adjust dosing as required. Follow-Up Labs: Trough Vancomycin Labs to be done on [date and time ordered]: 05/11/19 22:30
[2019-05-10] MEDS: 0.9% Saline Lock 10 ML Syringe IV ×3 (14:12→23:16)
[2019-05-10] MEDS: Primidone 50 MG Tablet PO (21:30)
[2019-05-10] MEDS: Doxazosin 4 MG Tablet PO (21:31)
[2019-05-10] MEDS: Mirtazapine 30 MG Tablet PO (21:31)
[2019-05-10] MEDS: Vancomycin IV 500 MG/100 ML BAG 100 MG IV (23:15)
[2019-05-11] VITALS (20 sets, daily range): BP systolic 114–139; BP diastolic 53–75; PULSE 88–169; RESP 16–26; TEMP 36.8–36.9; O2SAT 95–99
--- NOTE | 2019-05-11 02:15 | NURSING ---
pt was up to brp attempting to have bm. hr in 160s at one point reached 169. pt was c/o SOB and feeling very anxious. assisted pt to calm down and assisted back to bed. called PSN for breathing treatment. checked vs and notified physician.
[2019-05-11] MEDS: Ipratropium/Albuterol Sulfate 3 ML AMPUL.NEB INHALATION ×6 (02:40→23:25)
[2019-05-11 06:17] LABS: Absolute Lymphocyte Count 0.67 X10^3/uL (0.83-4.51); Basophil# 0.03 X10^3/uL; Basophil% 0.5 % (0-1); Eosinophil# 0.21 X10^3/uL; Eosinophils% 3.2 % (0-5); Hematocrit 27.4 % (40-54); Hemoglobin 8.5 g/dL (13.0-16.5); Lymphocyte # 0.67 X10^3/ul (4.0); Lymphocyte % 10.2 % (19-41); Mean Corpuscular Hgb 26.2 pg (27.0-32.0); Mean Corpuscular Volume 84.6 fL (80-94); Monocyte# 0.63 X10^3/uL; Monocyte% 9.6 % (0-10); NRBC Flagged by Analyzer 0 % (0-5); Neutrophil # 4.95 X10^3/uL (2.7-7.7); Neutrophil % 75.3 % (47-70); Platelet Count 266 K/mm3 (150-450); RBC Distribution Width CV 14.1 % (11.6-14.6); RBC Distribution Width SD 43.8 fl (35.1-43.9); Red Blood Count 3.24 M/mm3 (4.6-6.2); White Blood Count 6.6 K/mm3 (4.4-11.0)
[2019-05-11 06:46] LABS: Anion Gap 5 (5-15); BUN 14 mg/dL (7-18); BUN/Creat Ratio 16.1 RATIO (10-20); Calcium,Total 8.5 mg/dL (8.5-10.1); Chloride 110 mmol/L (98-107); Creatinine, Serum 0.87 mg/dL (0.70-1.30); EST Glomerular Filtration Rate 90 mL/min (>60); Est Glom Filt Rate - Afr Amer 108 mL/min (>60); Estimated Creatinine Clearance 60.09 ml/min; Glucose 151 mg/dL (74-106); Potassium 3.5 mmol/L (3.5-5.1); Sodium Level 140 mmol/L (136-145)
[2019-05-11] MEDS: Acetaminophen 325 MG Tablet 650 MG PO (06:48)
[2019-05-11] MEDS: Budesonide Respules 0.5 MG/2 ML AMPUL.NEB. INHALATION (07:05)
--- NOTE | 2019-05-11 07:13 | PCM.RX.CS ---
Consult Pharmacy has been consulted to manage selected antiobiotic: Vancomycin Type of Consult: Follow-up Suspected Infection: Sepsis Prior Doses of Antibiotics Received/Current Regimen: Pt has received a loading dose of Vancomycin 1500mg IV x1 on 05/10/2019 at 1110, and one dose of Vancomycin 500mg IV on 05/10/2019 at 2315. Labs: Sodium 140 mmol/L (136-145) 05/11/19 05:15 Potassium 3.5 mmol/L (3.5-5.1) 05/11/19 05:15 Chloride 110 mmol/L (98-107) H 05/11/19 05:15 Carbon Dioxide 25.0 mmol/L (21.0-32.0) 05/11/19 05:15 Anion Gap 5 (5-15) 05/11/19 05:15 BUN 14 mg/dL (7-18) 05/11/19 05:15 Creatinine 0.87 mg/dL (0.70-1.30) 05/11/19 05:15 Est GFR (MDRD) Af Amer 108 mL/min (>60) 05/11/19 05:15 Est GFR (MDRD) Non-Af 90 mL/min (>60) 05/11/19 05:15 BUN/Creatinine Ratio 16.1 RATIO (10-20) 05/11/19 05:15 Glucose 151 mg/dL (74-106) H 05/11/19 05:15 Microbiology: Microbiology 05/09/19 00:10 Urine, Clean Catch Urine Culture - Preliminary Staphylococcus aureus Weight used for dosin kg Estimated Creatinine Clearance: 60ml/min Goal Trough: 15-20 mcg/mL Pharmacy Plan for Drug Dosing: Pt was ordered Vancomycin 500mg q12h due to a weight of 64kg and a CrCl of 48ml/min. Lab chemistry from the am of 05/11/2019 showed that the pt's renal function is improving. Pt's SrCr went from 1.08 to 0.87 on 05/11/2019 and his CrCl improved from 48ml/min to 60ml/min. His dose will be adjusted from Vancomycin 500mg IV q12h to 750mg IV q12h due to the improved renal function. Trough level will stay the same (05/11/2019 at 2230). Pharmacy will adjust dose based on that level. Pharmacy Service will continue to monitor and adjust dosing as required. Follow-Up Labs: Trough Vancomycin - 05/11/2019 at 2230
[2019-05-11] MEDS: Glucerna Shake 120 ML LIQUID PO ×3 (08:40→17:41)
[2019-05-11] MEDS: Aspirin 81 MG TAB.CHEW PO (08:40)
--- NOTE | 2019-05-11 08:59 | PCM.PN.HOSP ---
Patient Problems: Active and Suspected Problems (Last Reviewed 05/09/19 @ 05:42 by Nino Calderón MD) UTI (urinary tract infection) (Acute) Dyspnea (Acute) Sepsis (Acute) Cystitis (Acute) Reason for Visit: UTI Subjective: still short of breath with exertion Vitals/I&O's: Vital Signs Temp Pulse Resp BP Pulse Ox 36.9 C 101 H 20 H 114/56 L 99 05/11/19 08:03 05/11/19 08:03 05/11/19 08:03 05/11/19 08:03 05/11/19 08:03 Oxygen Flow Rate (L/min) 2 Oxygen Delivery Method Nasal Cannula Weight: 64.5 kg Body Mass Index (BMI) 22.9 Intake and Output for Last 24 Hours 05/09/19 05/10/19 05/11/19 23:59 23:59 23:59 Intake Total 3370 / 3870 2139 / 2389 500 / 500 Output Total 1420 / 1970 950 / 1150 550 / 550 Balance 1950 / 1900 1189 / 1239 -50 / -50 General: Cooperative, No apparent distress HEENT: Atraumatic, Normocephalic Oral: Moist Mucosa, No Gingival or Mucosal Lesions/ Ulcerations Neck: No Nodes, Trachea Midline Lungs: Clear to auscultation, Diminished Cardiovascular: Regular rate, Regular Rhythm, Normal S1, Normal S2, No murmurs Abdomen: Bowel Sounds Present, Soft, Non Tender, Non-Distended, No Hepato-splenomegaly, - - rectal exam: light brown stool. prostate palpated, non-tender. Extremities: No edema, No Calf Tenderness Skin: No rashes, No breakdown Psych/Mental Status: Appropriate, Anxious Microbiology Past 72 Hours 05/09/19 00:10 Urine, Clean Catch Urine Culture - Final Meth. resistant Staph. aureus Laboratory Results 05/11/19 05:15: WBC 6.6, RBC 3.24 L, Hgb 8.5 L, Hct 27.4 L, MCV 84.6, MCH 26.2 L, MCHC 31.0 L, RDW Std Deviation 43.8, RDW Coeff of Ye 14.1, Plt Count 266, MPV 10.0, Immature Gran % (Auto) 1.200 H, Neut % (Auto) 75.3 H, Lymph % (Auto) 10.2 L, Gulf % (Auto) 9.6, Eos % (Auto) 3.2, Baso % (Auto) 0.5, Absolute Neuts (auto) 5.0, Absolute Lymphs (auto) 0.67 L, Nucleated RBC % 0 05/11/19 05:15: Sodium 140, Potassium 3.5, Chloride 110 H, Carbon Dioxide 25.0, Anion Gap 5, BUN 14, Creatinine 0.87, Estim Creat Clear Calc 60.09, Est GFR (MDRD) Af Amer 108, Est GFR (MDRD) Non-Af 90, BUN/Creatinine Ratio 16.1, Glucose 151 H, Calcium 8.5 Current Medications Acetaminophen (Tylenol) 650 mg PO Q6H PRN PRN PRN Reason: Pain Score 1-10/Temp > 100.7 F Last Admin: 05/11/19 06:48 Dose: 650 mg Documented by: Albuterol/Ipratropium (Duoneb) 3 ml INHALATION Q4H.RT PRN PRN Reason: SOB &/OR WHEEZING Last Admin: 05/11/19 07:05 Dose: 3 ml Documented by: Aspirin (Aspirin, Baby) 81 mg PO DAILY@0800 [facility] Last Admin: 05/11/19 08:40 Dose: 81 mg Documented by: Benzonatate (Tessalon Perle) 100 mg PO TID PRN PRN PRN Reason: COUGH Budesonide (Pulmicort Aerosol) 0.5 mg INHALATION Q12H.RT [facility] Last Admin: 05/11/19 07:05 Dose: 0.5 mg Documented by: Clopidogrel Bisulfate (Plavix) 75 mg PO DAILY [facility] Last Admin: 05/10/19 08:34 Dose: 75 mg Documented by: Digoxin (Lanoxin) 125 mcg PO DAILY [facility] Last Admin: 05/10/19 08:32 Dose: 125 mcg Documented by: Doxazosin Mesylate (Cardura) 4 mg PO QHS [facility] Last Admin: 05/10/19 21:31 Dose: 4 mg Documented by: Enoxaparin Sodium (Lovenox) 40 mg SC DAILY [facility] Last Admin: 05/10/19 08:34 Dose: 40 mg Documented by: Finasteride (Proscar) 5 mg PO DAILY [facility] Last Admin: 05/10/19 08:32 Dose: 5 mg Documented by: Furosemide (Lasix) 20 mg PO DAILY PRN PRN PRN Reason: edema Glucagon () 1 mg IM .X1 PRN PRN Reason: Hypoglycemia Guaifenesin (Mucinex) 600 mg PO BID [facility] Last Admin: 05/10/19 21:31 Dose: 600 mg Documented by: Piperacillin Sod/Tazobactam (Sod 3.375 gm/ Sodium Chloride) 50 mls @ 12.5 mls/hr IV Q12 [facility] Last Infusion: 05/11/19 01:37 Dose: Infused Documented by: Dextrose (Dextrose 10%-Water) 250 mls @ 999 mls/hr IV .Q16M PRN; Protocol PRN Reason: HYPOGLYCEMIA Sodium Chloride () 250 mls @ 15 mls/hr IV .[id number] PRN PRN Reason: Saline Flush Last Infusion: 05/11/19 00:46 Dose: 15 mls/hr Documented by: Sodium Chloride () 250 mls @ 15 mls/hr IV .[id number] PRN PRN Reason: Additional IVPB Infusion Last Admin: 05/11/19 06:48 Dose: 15 mls/hr Documented by: Vancomycin IV Pharmacy to Dose (1 ea/ Sodium Chloride) 500 mls @ 250 mls/hr IV X1 PRN; Protocol PRN Reason: Rx to Dose Vancomycin HCl 750 mg/ Sodium (Chloride) 265 mls @ 250 mls/hr IV Q12H [facility] Lorazepam (Ativan) 1 mg PO BID [facility] Last Admin: 05/10/19 21:31 Dose: 1 mg Documented by: Losartan Potassium (Cozaar) 25 mg PO DAILY [facility] Last Admin: 05/10/19 08:32 Dose: 25 mg Documented by: Magnesium Citrate (Citrate Of Magnesia) 300 ml PO DAILY PRN PRN PRN Reason: Constipation Mirtazapine (Remeron) 30 mg PO QHS [facility] Last Admin: 05/10/19 21:31 Dose: 30 mg Documented by: Nutritional Formula (Lactose Free) (Glucerna Shake) 120 ml PO TIDCM [facility] Last Admin: 05/11/19 08:40 Dose: 120 ml Documented by: Ondansetron HCl (Zofran) 4 mg IV Q8H PRN PRN PRN Reason: NAUSEA/VOMITING Pantoprazole Sodium (Protonix) 20 mg PO DAILY [facility] Last Admin: 05/10/19 08:32 Dose: 20 mg Documented by: Prednisolone Acetate (Pred Forte Eye Drops (5 Ml)) 1 drop OPHTHALMIC 4X/DAY PRN PRN PRN Reason: DRY EYES Primidone (Mysoline) 50 mg PO BID [facility] Last Admin: 05/10/19 21:30 Dose: 50 mg Documented by: Sodium Chloride () 10 - 40 ml IV UD PRN PRN Reason: SALINE FLUSH Last Admin: 05/10/19 23:16 Dose: 10 ml Documented by: Theophylline (Kevin-Dur) 300 mg PO BID [facility] Last Admin: 05/10/19 21:32 Dose: 300 mg Documented by: STROKE Vital Signs/Narrative: Vital Signs Temp Pulse Resp BP Pulse Ox 05/11/19 08:03 36.9 C 101 H 20 H 114/56 L 99 05/11/19 07:05 103 H 18 95 Medical Necessity - Tobacco Use Smoking Status: Former smoker Tobacco Use: Cigarettes Assessment/Plan All Active Problems (Last Reviewed 05/09/19 @ 05:42 by Nino Calderón MD) Hematuria (Acute) UTI (urinary tract infection) (Acute) Dyspnea (Acute) Sepsis (Acute) Cystitis (Acute) 1. sepsis 2/2 UTI 2. UTI versus prostatitis Cx again positive for MRSA, but on 11-25k cfus, DC pip/tazo culture from 2/3 showed MRSA (no UA, however). DW Drs. Burnette and Luli who will see the patient. 3. Anxiety very anxious today states that he is short of breath. Oxygen is 96% on RA. Reassurance attempted, but he was concerned that his oxygen will drop when he is active. Attempted to reassure that that is normal. complicates care 4. Chronic BZD dependence had long conversation with the patient about BZD reviewed his OARRS which showed that he has been receiving for a long time and has been on the same dose (1mg BID) during this time, though it does appear that a lower dose was tried at one point Advised patient speak with his PCP about being tapered off it Warned patient against stopping briefly given potential for significant withdrawal symptoms. Patient did not seem receptive to any changes with this medication 5. acute COPD no wheezing, but very diminished start prednisone pulse ox dropped to 87% with ambulation. Will arrange for home oxygen with activity upon discharge follow up with Dr. Hernandes as outpt. 6. VTE prophylaxis: LMWH. Greater than 35 minutes of which greater than 50% of the time was counseling patient about UTI/prostatitis and discussing case with consultants. Code Visit Inpatient E&M: 80424 [facility] L3
[2019-05-11] MEDS: LORazepam 1 MG Tablet PO ×2 (09:03→20:57)
[2019-05-11] MEDS: Losartan Potassium 25 MG Tablet PO (09:06)
[2019-05-11] MEDS: Digoxin 125 MCG Tablet PO (09:07)
[2019-05-11] MEDS: ROFLUMILAST 500 MCG TABLET PO (09:07)
[2019-05-11] MEDS: Enoxaparin 40 MG/0.4 ML Syringe SC (09:08)
[2019-05-11] MEDS: Primidone 50 MG Tablet PO ×2 (09:08→21:03)
[2019-05-11] MEDS: Finasteride 5 MG Tablet PO (09:08)
[2019-05-11] MEDS: guaiFENesin 600 MG Tablet PO ×2 (09:08→21:03)
[2019-05-11] MEDS: Pantoprazole Sodium 20 MG Tablet PO (09:08)
[2019-05-11] MEDS: Clopidogrel Bisulfate 75 MG Tablet PO (09:08)
--- NOTE | 2019-05-11 10:01 | CON.PCM_ITS ---
Problem List (1) UTI (urinary tract infection) Status: Acute Reason for Consult: MRSA ucx Consulted by: Dr. Mckenna History of Present Illness: The patient is a 79 year old M with COPD, BPH, had catheter in place in April due to retention. Ucx at that time with small amount of MRSA. Saw Dr. Burnette, had urolift done about 10 days ago. After that was done, started to have dysuria, no abd pain, no fever. Came to hospital 05/09 due to acute worsening of chronic dyspnea. No sputum. Given azithro, zosyn, now vanc added with ucx showing MRSA. Still with dysuria. Dr. Burnette consulted. Full ROS performed and neg except as noted above. - Medical History Past Medical History (Chronic Problems): Chronic Problems (Last Reviewed 05/09/19 @ 05:42 by Nino Calderón MD) Respiratory distress (Chronic) Acute urinary retention (Chronic) S/P coronary artery stent placement (Chronic ~11/07/18) PTCA/stent to mid RCA @ [facility] 10/18/01; PTCA/TAMI of the prox Diag #1, PTCA/TAMI of the prox LAD, PTCA/TAMI of the mid LCX 10/12/18; PTCA/TAMI to mid RCA and PTCA/TAMI to prox/ostial RCA 11/07/18 Atherosclerotic heart disease of [place] coronary artery without angina pectoris (Chronic) Normochromic normocytic anemia (Chronic) Chronic renal failure, stage 2 (mild) (Chronic) CARLIN (obstructive sleep apnea) (Chronic) GERD (gastroesophageal reflux disease) (Chronic) Abnormal stress test (Chronic) Anxiety disorder (Chronic) with panic attacks COPD (chronic obstructive pulmonary disease) (Chronic) History of coronary angioplasty (Chronic) Type II diabetes mellitus (Chronic) Allergies/Adverse Reactions: Allergies gabapentin Allergy (Unknown, Verified 04/11/19 03:04) Unknown acetylcysteine [From Mucomyst] Allergy (Verified 04/11/19 03:04) Shortness of breath alprazolam [From Xanax] Allergy (Verified 04/11/19 03:04) breathing issues belladonna alkaloids Allergy (Verified 04/11/19 03:04) Unknown cephalexin Allergy (Verified 04/11/19 03:04) Unknown ciprofloxacin [From Cipro] Allergy (Verified 04/11/19 03:04) Unknown dicyclomine Allergy (Verified 04/11/19 03:04) Unknown diltiazem Allergy (Verified 05/08/19 23:16) Unknown doxycycline Allergy (Verified 05/08/19 23:16) Shortness of breath ezetimibe Allergy (Verified 05/08/19 23:16) Unknown fluvastatin Allergy (Verified 05/08/19 23:16) Unknown metoprolol [From Toprol XL] Allergy (Verified 05/08/19 23:16) Unknown nitrofurantoin Allergy (Verified 05/08/19 23:16) Unknown phenobarbital Allergy (Verified 05/08/19 23:16) Unknown prochlorperazine [From Compazine] Allergy (Verified 05/08/19 23:16) Unknown simvastatin [From Zocor] Allergy (Verified 05/08/19 23:16) Unknown Xydxldn-Bja-Jdl Reductase Inhibitor Allergy (Verified 05/08/19 23:16) Unknown sulfamethoxazole [From Bactrim] Allergy (Verified 05/08/19 23:16) Unknown tamsulosin [From Flomax] Allergy (Verified 05/08/19 23:16) Unknown trimethoprim [From Bactrim] Allergy (Verified 05/08/19 23:16) Unknown carvedilol Adverse Reaction (Verified 05/08/19 23:16) Vomiting Home Medications: Ambulatory Orders Medication Instructions Recorded Aspirin [Aspirin, Baby] 81 mg PO DAILY@0800 11/13/15 Doxazosin Mesylate [Cardura] 4 mg PO QHS 11/13/15 Finasteride [Proscar] 5 mg PO DAILY 11/13/15 Mirtazapine [Remeron] 30 mg PO QHS 11/13/15 Theophylline [Kevin-Dur] 300 mg PO BID 11/13/15 prednisoLONE eye drops (1 mL) 1 drp RIGHT EYE 4X/DAY PRN PRN 11/13/15 [Pred Forte eye drops (1 mL)] Guaifenesin [Mucinex] 1,200 mg PO BID PRN 07/29/17 Albuterol Inhaler [Ventolin Hfa] 1 - 2 puff INHALATION Q4H PRN PRN 08/26/17 #1 inhaler Ipratropium/Albuterol Sulfate 3 ml INHALATION 4X/DAY PRN PRN 12/07/18 [Duoneb] Nitroglycerin (INPATIENT USE) 0.4 mg SUBLINGUAL Q5M PRN 03/11/18 [Nitrostat] Roflumilast [Daliresp] 500 mcg PO DAILY 03/11/18 Furosemide [Lasix] 20 mg PO DAILY PRN 10/10/18 primidone 50 mg tablet 50 mg PO BID tab 10/27/18 Fluticasone/Vilanterol [Breo 1 ea IH DAILY 03/26/19 Ellipta 100-25 Mcg INH] Acetaminophen [Tylenol] 650 mg PO Q4H PRN PRN 04/11/19 Budesonide/Formoterol 160/4.5 2 puff INHALATION BID 04/11/19 [Symbicort 160/4.5 Mcg Inhaler (SP)] Escitalopram Oxalate [Lexapro] 10 mg PO DAILY 04/11/19 Magnesium Citrate [Citrate of 300 ml PO DAILY PRN PRN 04/11/19 Magnesia] Lorazepam [Ativan] 1 mg PO BID #10 tab 04/15/19 Azithromycin 250 mg PO DAILY 05/08/19 Benzonatate [Tessalon Perle] 100 mg PO TID PRN 05/08/19 Losartan Potassium 25 mg PO DAILY 05/08/19 Omeprazole 20 mg PO DAILY 05/08/19 Clopidogrel Bisulfate [Clopidogrel] 75 mg PO DAILY 05/09/19 Digoxin 125 mcg PO DAILY 05/09/19 - Social History SMOKING STATUS:: Former smoker Vital Signs Temp Pulse Resp BP Pulse Ox 98.5 F 110 H 20 H 114/56 L 99 05/11/19 08:03 05/11/19 09:07 05/11/19 08:03 05/11/19 08:03 05/11/19 08:03 Oxygen Flow Rate (L/min) 2 Oxygen Delivery Method Nasal Cannula Weight: 64.5 kg Body Mass Index (BMI) 22.9 Microbiology Past 72 Hours 05/09/19 00:10 Urine Culture - Final Urine, Clean Catch Meth. resistant Staph. aureus Laboratory Tests Past 24 Hrs 05/11/19 05/11/19 05:15 05:15 WBC 6.6 RBC 3.24 L Hgb 8.5 L Hct 27.4 L MCV 84.6 MCH 26.2 L MCHC 31.0 L RDW Std Deviation 43.8 RDW Coeff of Ye 14.1 Plt Count 266 MPV 10.0 Immature Gran % (Auto) 1.200 H Neut % (Auto) 75.3 H Lymph % (Auto) 10.2 L [place] % (Auto) 9.6 Eos % (Auto) 3.2 Baso % (Auto) 0.5 Absolute Neuts (auto) 5.0 Absolute Lymphs (auto) 0.67 L Nucleated RBC % 0 Sodium 140 Potassium 3.5 Chloride 110 H Carbon Dioxide 25.0 Anion Gap 5 BUN 14 Creatinine 0.87 Estim Creat Clear Calc 60.09 Est GFR (MDRD) Af Amer 108 Est GFR (MDRD) Non-Af 90 BUN/Creatinine Ratio 16.1 Glucose 151 H Calcium 8.5 - Other Studies Radiology: [] reviewed Other Studies: [] Route of nutrition/ use of supplements: [] Nutritional Intake: [] IV Site: [] Colvin Catheter: [] - Physical Exam General: Alert, Oriented x3, Cooperative, No apparent distress, - - ill appearing HEENT: Atraumatic, PERRLA, EOMI Neck: Supple, No Nodes Lungs: Wheezes Cardiovascular: Regular rate, Regular Rhythm, No murmurs Abdomen: Soft, Non Tender, Non-Distended Extremities: No edema Skin: No rashes IV Site: Peripheral, without redness Musculoskeletal: No Tenderness to Palpation of Joints or Extremities Neurological: Cranial nerves II-XII grossly intact - Assessment/Plan Antibiotics: [] Assessment/Plan: [] Active and Suspected Problems (Last Reviewed 05/09/19 @ 05:42 by Nino Calderón MD) UTI (urinary tract infection) (Acute) Dyspnea (Acute) Sepsis (Acute) Cystitis (Acute) MRSA complicated uti with recent urolift - will stop zosyn. Cont vanc. Plan for discharge will be 10 days of po linezolid. Will stop remeron while he is on abx to limit risk of serotonin syndrome, he is to watch for fever. May abx allergies, seem like most are associated with worsening COPD. Will follow, thank you, d/w Dr. Mckenna
[2019-05-11] MEDS: predniSONE 20 MG Tablet 40 MG PO (10:53)
--- NOTE | 2019-05-11 16:10 | CASEMGMT ---
Social Work Note RN updated this worker that pt and pt's Keturah are agreeable to Palliative Care referral now. SW met with pt and pt's Keturah. Both pt and Keturah confirm they are agreeable to Palliative Care Referral and Keturah states she would like to be called to arrange meeting time. SW placed a call to [facility] and left message for Palliative Care Referral. SW faxed referral. Alayna Stephens PITTING MACHINE OPERATOR, SEROLOGY TECHNICIAN
[2019-05-11] MEDS: Doxazosin 4 MG Tablet PO (21:03)
[2019-05-12] VITALS (14 sets, daily range): BP systolic 122–139; BP diastolic 58–64; PULSE 76–111; RESP 18–20; TEMP 36.6–36.7; O2SAT 88–99
[2019-05-12] MEDS: Ipratropium/Albuterol Sulfate 3 ML AMPUL.NEB INHALATION ×4 (03:48→14:54)
[2019-05-12] MEDS: Aspirin 81 MG TAB.CHEW PO (08:01)
[2019-05-12] MEDS: predniSONE 20 MG Tablet 40 MG PO (08:01)
[2019-05-12] MEDS: Glucerna Shake 120 ML LIQUID PO ×3 (08:04→17:50)
--- NOTE | 2019-05-12 09:03 | DCINST_ITS ---
- Discharge Diagnoses Current Active Problems: Current Active and Chronic Problems (Last Reviewed 05/09/19 @ 05:42 by Nino Calderón MD) UTI (urinary tract infection) (Acute) Dyspnea (Acute) Sepsis (Acute) Cystitis (Acute) You will use the following diet at home:: No restrictions Your food should be the consistency of: Regular Your liquids should be the consistency of: Regular/Thin Call your doctor if you observe: Fever of 101 or Higher, Shortness of breath, - - inability to urinate. Allergies/Adverse Reactions: Allergies gabapentin Allergy (Unknown, Verified 04/11/19 03:04) Unknown acetylcysteine [From Mucomyst] Allergy (Verified 04/11/19 03:04) Shortness of breath alprazolam [From Xanax] Allergy (Verified 04/11/19 03:04) breathing issues belladonna alkaloids Allergy (Verified 04/11/19 03:04) Unknown cephalexin Allergy (Verified 04/11/19 03:04) Unknown ciprofloxacin [From Cipro] Allergy (Verified 04/11/19 03:04) Unknown dicyclomine Allergy (Verified 04/11/19 03:04) Unknown diltiazem Allergy (Verified 05/08/19 23:16) Unknown doxycycline Allergy (Verified 05/08/19 23:16) Shortness of breath ezetimibe Allergy (Verified 05/08/19 23:16) Unknown fluvastatin Allergy (Verified 05/08/19 23:16) Unknown metoprolol [From Toprol XL] Allergy (Verified 05/08/19 23:16) Unknown nitrofurantoin Allergy (Verified 05/08/19 23:16) Unknown phenobarbital Allergy (Verified 05/08/19 23:16) Unknown prochlorperazine [From Compazine] Allergy (Verified 05/08/19 23:16) Unknown simvastatin [From Zocor] Allergy (Verified 05/08/19 23:16) Unknown Ilnnxmp-Nss-Vor Reductase Inhibitor Allergy (Verified 05/08/19 23:16) Unknown sulfamethoxazole [From Bactrim] Allergy (Verified 05/08/19 23:16) Unknown tamsulosin [From Flomax] Allergy (Verified 05/08/19 23:16) Unknown trimethoprim [From Bactrim] Allergy (Verified 05/08/19 23:16) Unknown carvedilol Adverse Reaction (Verified 05/08/19 23:16) Vomiting Medications to take at Discharge Aspirin [Aspirin, Baby] 81 mg PO DAILY@0800 11/13/15 Doxazosin Mesylate [Cardura] 4 mg PO QHS 11/13/15 Finasteride [Proscar] 5 mg PO DAILY 11/13/15 Mirtazapine [Remeron] 30 mg PO QHS 11/13/15 Theophylline [Kevin-Dur] 300 mg PO BID 11/13/15 prednisoLONE eye drops (1 mL) [Pred Forte eye drops (1 mL)] 1 drp RIGHT EYE 4X/DAY PRN PRN 11/13/15 Guaifenesin [Mucinex] 1,200 mg PO BID PRN 07/29/17 Albuterol Inhaler [Ventolin Hfa] 1 - 2 puff INHALATION Q4H PRN PRN #1 inhaler 08/26/17 Ipratropium/Albuterol Sulfate [Duoneb] 3 ml INHALATION 4X/DAY PRN PRN 03/11/18 Nitroglycerin (INPATIENT USE) [Nitrostat] 0.4 mg SUBLINGUAL Q5M PRN 03/11/18 Roflumilast [Daliresp] 500 mcg PO DAILY 03/11/18 Furosemide [Lasix] 20 mg PO DAILY PRN 10/10/18 primidone 50 mg tablet 50 mg PO BID tab 10/27/18 Fluticasone/Vilanterol [Breo Ellipta 100-25 Mcg INH] 1 ea IH DAILY 03/26/19 Acetaminophen [Tylenol] 650 mg PO Q4H PRN PRN 04/11/19 Budesonide/Formoterol 160/4.5 [Symbicort 160/4.5 Mcg Inhaler (SP)] 2 puff INHALATION BID 04/11/19 Escitalopram Oxalate [Lexapro] 10 mg PO DAILY 04/11/19 Magnesium Citrate [Citrate of Magnesia] 300 ml PO DAILY PRN PRN 04/11/19 Lorazepam [Ativan] 1 mg PO BID #10 tab 04/15/19 Benzonatate [Tessalon Perle] 100 mg PO TID PRN 05/08/19 Losartan Potassium 25 mg PO DAILY 05/08/19 Omeprazole 20 mg PO DAILY 05/08/19 Clopidogrel Bisulfate [Clopidogrel] 75 mg PO DAILY 05/09/19 Digoxin 125 mcg PO DAILY 05/09/19 Guaifenesin [Mucinex] 600 mg PO BID #10 tab 05/12/19 Linezolid 600 mg PO BID #20 tab 05/12/19 Prednisone 10 mg PO DAILY #30 tab.ds.pk 05/12/19 The following prescriptions were given: Linezolid 600 mg PO BID #20 tab Transmission Status: [facility] to [id number] Guaifenesin [Mucinex] 600 mg PO BID #10 tab Transmission Status: [facility] to [id number] Prednisone 10 mg PO DAILY #30 tab.ds.pk Transmission Status: [id number] Primary Care Physician: Dutch Lee III, MD [Primary Care Provider] - Within 2 Weeks Test Results: Test results from this visit will be discussed in further detail at your follow- up appointment, if applicable. Please Follow Up With: Malcom Burnette MD When: 2 weeks Please Follow Up With: Андрей Hernandes MD When: 2-4 weeks Proposed Discharge Date: 05/12/19
--- NOTE | 2019-05-12 09:05 | PCM.DC.SUM ---
Discharge Date and Diagnosis - Problem List Patient Problems: Active and Suspected Problems (Last Reviewed 05/09/19 @ 05:42 by Nino Calderón MD) UTI (urinary tract infection) (Acute) Dyspnea (Acute) Sepsis (Acute) Cystitis (Acute) Date of Admission: 05/09/19 Date of Discharge: 05/12/19 - Primary Discharge Diagnosis Active and Suspected Problems (Last Reviewed 05/09/19 @ 05:42 by Nino Calderón MD) UTI (urinary tract infection) (Acute) Dyspnea (Acute) Sepsis (Acute) Cystitis (Acute) 1. sepsis 2/2 UTI 2. UTI versus prostatitis Cx again positive for MRSA, but on 11-25k cfus, DC pip/tazo culture from 05/08 showed MRSA (no UA, however). DW Drs. Burnette and Luli who will see the patient. 3. Anxiety very anxious today states that he is short of breath. Oxygen is 96% on RA. Reassurance attempted, but he was concerned that his oxygen will drop when he is active. Attempted to reassure that that is normal. complicates care 4. Chronic BZD dependence had long conversation with the patient about BZD reviewed his OARRS which showed that he has been receiving for a long time and has been on the same dose (1mg BID) during this time, though it does appear that a lower dose was tried at one point Advised patient speak with his PCP about being tapered off it Warned patient against stopping briefly given potential for significant withdrawal symptoms. Patient did not seem receptive to any changes with this medication 5. acute COPD no wheezing, but very diminished prednisone taper pulse ox dropped to 87% with ambulation. Will arrange for home oxygen with activity upon discharge follow up with Dr. Hernandes as outpt. - Secondary Discharge Diagnosis Chronic Problems (Last Reviewed 05/09/19 @ 05:42 by Nino Calderón MD) Respiratory distress (Chronic) Acute urinary retention (Chronic) S/P coronary artery stent placement (Chronic ~11/07/18) PTCA/stent to mid RCA @ [facility] 10/18/01; PTCA/TAMI of the prox Diag #1, PTCA/TAMI of the prox LAD, PTCA/TAMI of the mid LCX 10/12/18; PTCA/TAMI to mid RCA and PTCA/TAMI to prox/ostial RCA 11/07/18 Atherosclerotic heart disease of [place] coronary artery without angina pectoris (Chronic) Normochromic normocytic anemia (Chronic) Chronic renal failure, stage 2 (mild) (Chronic) CARLIN (obstructive sleep apnea) (Chronic) GERD (gastroesophageal reflux disease) (Chronic) Abnormal stress test (Chronic) Anxiety disorder (Chronic) with panic attacks COPD (chronic obstructive pulmonary disease) (Chronic) History of coronary angioplasty (Chronic) Type II diabetes mellitus (Chronic) Hospital Course and Treatment Imaging Results: Clinical Impression(s) from Imaging Studies Chest X-Ray 05/08/19 23:39 IMPRESSION: Bullous emphysema with large bulla formation and postsurgical changes in the bilateral lung parenchyma. No pulmonary edema, congestive heart failure or confluent pneumonia. Suspect anterior pericardial fluid. Electronically Signed: Renetat Garcia MD at 0:16 EST , Service support , Chest CTA 05/09/19 00:30 IMPRESSION: No demonstrated pulmonary embolism, aneurysm, leak or arterial dissection. Small pleural-based nodule left lower lobe currently 0.6 x 0.5 cm stable since most recent examination, slightly increased in size since August 26, 2015 from 0.4 x 0.5 cm with no indistinct pleural nodular density. Consider follow-up examination in 6 months. No pulmonary edema, congestive heart failure or confluent pneumonia. Stable hepatic cysts, right adrenal nodule in the upper abdomen. Severe emphysema with postsurgical changes, stable small scattered calcified nodules, and moderate anterior pericardial effusion, atherosclerosis and coronary artery disease are stable findings. Electronically Signed: Renetta Garcia MD at 1:42 EST , Service support , Luli: ID Vasile: Operations: None Procedures: None Summary of Care Provided: The patient is a 79 year old M [place] with shortness of breath. When he presented patient was stable on room air but was found to have UTI. Urine culture came back showing MRSA. Patient had MRSA from urine culture on the third but also back in April. Patient was seen by infectious disease who recommended nasal lid. Patient has numerous allergies or adverse reactions associated with the numerous antibiotics and the nasal lid would be the only viable oral option. Patient was seen also by Dr. Burnette, of urology, patient will follow-up with urology as outpatient. Patient had issues with shortness of breath. Patient was ambulated dropped to 87% on room air. Patient will require oxygen at home with activity. Patient was started on prednisone taper. 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 Hernandes will need to be followed up with as outpatient. [] Patient Problems: Active and Suspected Problems (Last Reviewed 05/09/19 @ 05:42 by Nino Calderón MD) UTI (urinary tract infection) (Acute) Dyspnea (Acute) Sepsis (Acute) Cystitis (Acute) - Physical Exam Vitals/I&O's: Vital Signs Temp Pulse Resp BP Pulse Ox 36.6 C 95 20 H 136/58 H 97 05/12/19 07:56 05/12/19 07:56 05/12/19 07:56 05/12/19 07:56 05/12/19 07:56 Oxygen Flow Rate (L/min) 2.5 Oxygen Delivery Method Nasal Cannula Weight: 64.5 kg Body Mass Index (BMI) 22.9 Intake and Output for Last 24 Hours 05/10/19 05/11/19 05/12/19 23:59 23:59 23:59 Intake Total 2139 / 2389 1325.50 / 1725.50 1015.5 / 1015.5 Output Total 950 / 1150 1820 / 2045 925 / 925 Balance 1189 / 1239 -494.50 / -319.50 90.5 / 90.5 General: Alert, No apparent distress HEENT: Atraumatic, Normocephalic Oral: Moist Mucosa, No Gingival or Mucosal Lesions/ Ulcerations Lungs: Clear to auscultation, Diminished Cardiovascular: Regular rate, Regular Rhythm, Normal S1, Normal S2 Psych/Mental Status: Normal Affect, Appropriate Microbiology Past 72 Hours 05/09/19 02:10 Blood Culture (Wb) - Right Forearm Blood Culture - Preliminary No growth in 48 hours. 05/08/19 23:20 Blood Culture (Wb) - No Site/Description Given Blood Culture - Preliminary No growth in 48 hours. 05/09/19 00:10 Urine, Clean Catch Urine Culture - Final Meth. resistant Staph. aureus Laboratory Results 05/12/19 08:22: Vancomycin Trough Pending Current Medications Acetaminophen (Tylenol) 650 mg PO Q6H PRN PRN PRN Reason: Pain Score 1-10/Temp > 100.7 F Last Admin: 05/11/19 06:48 Dose: 650 mg Documented by: Albuterol/Ipratropium (Duoneb) 3 ml INHALATION Q4H.RT PRN PRN Reason: SOB &/OR WHEEZING Last Admin: 05/12/19 07:29 Dose: 3 ml Documented by: Aspirin (Aspirin, Baby) 81 mg PO DAILY@0800 [facility] Last Admin: 05/12/19 08:01 Dose: 81 mg Documented by: Benzonatate (Tessalon Perle) 100 mg PO TID PRN PRN PRN Reason: COUGH Clopidogrel Bisulfate (Plavix) 75 mg PO DAILY [facility] Last Admin: 05/11/19 09:08 Dose: 75 mg Documented by: Digoxin (Lanoxin) 125 mcg PO DAILY [facility] Last Admin: 05/11/19 09:07 Dose: 125 mcg Documented by: Doxazosin Mesylate (Cardura) 4 mg PO QHS [facility] Last Admin: 05/11/19 21:03 Dose: 4 mg Documented by: Enoxaparin Sodium (Lovenox) 40 mg SC DAILY [facility] Last Admin: 05/11/19 09:08 Dose: 40 mg Documented by: Finasteride (Proscar) 5 mg PO DAILY [facility] Last Admin: 05/11/19 09:08 Dose: 5 mg Documented by: Furosemide (Lasix) 20 mg PO DAILY PRN PRN PRN Reason: edema Glucagon () 1 mg IM .X1 PRN PRN Reason: Hypoglycemia Guaifenesin (Mucinex) 600 mg PO BID [facility] Last Admin: 05/11/19 21:03 Dose: 600 mg Documented by: Dextrose (Dextrose 10%-Water) 250 mls @ 999 mls/hr IV .Q16M PRN; Protocol PRN Reason: HYPOGLYCEMIA Sodium Chloride () 250 mls @ 15 mls/hr IV .[id number] PRN PRN Reason: Saline Flush Last Admin: 05/12/19 08:01 Dose: 15 mls/hr Documented by: Sodium Chloride () 250 mls @ 15 mls/hr IV .[id number] PRN PRN Reason: Additional IVPB Infusion Last Infusion: 05/12/19 08:05 Dose: Infused Documented by: Vancomycin IV Pharmacy to Dose (1 ea/ Sodium Chloride) 500 mls @ 250 mls/hr IV X1 PRN; Protocol PRN Reason: Rx to Dose Vancomycin HCl 750 mg/ Sodium (Chloride) 265 mls @ 250 mls/hr IV Q12H [facility] Last Infusion: 05/11/19 22:14 Dose: Infused Documented by: Lorazepam (Ativan) 1 mg PO BID [facility] Last Admin: 05/11/19 20:57 Dose: 1 mg Documented by: Losartan Potassium (Cozaar) 25 mg PO DAILY [facility] Last Admin: 05/11/19 09:06 Dose: 25 mg Documented by: Magnesium Citrate (Citrate Of Magnesia) 300 ml PO DAILY PRN PRN PRN Reason: Constipation Nutritional Formula (Lactose Free) (Glucerna Shake) 120 ml PO TIDCM [facility] Last Admin: 05/12/19 08:04 Dose: 120 ml Documented by: Ondansetron HCl (Zofran) 4 mg IV Q8H PRN PRN PRN Reason: NAUSEA/VOMITING Pantoprazole Sodium (Protonix) 20 mg PO DAILY [facility] Last Admin: 05/11/19 09:08 Dose: 20 mg Documented by: Prednisolone Acetate (Pred Forte Eye Drops (5 Ml)) 1 drop OPHTHALMIC 4X/DAY PRN PRN PRN Reason: DRY EYES Prednisone () 40 mg PO DAILY@0800 [facility] Last Admin: 05/12/19 08:01 Dose: 40 mg Documented by: Primidone (Mysoline) 50 mg PO BID [facility] Last Admin: 05/11/19 21:03 Dose: 50 mg Documented by: Sodium Chloride () 10 - 40 ml IV UD PRN PRN Reason: SALINE FLUSH Last Admin: 05/10/19 23:16 Dose: 10 ml Documented by: Theophylline (Kevin-Dur) 300 mg PO BID [facility] Last Admin: 05/11/19 20:57 Dose: 300 mg Documented by: Discharge Diet: No Restrictions Call your doctor if you observe: Fever of 101 or Higher, Shortness of breath, - - inability to urinate. Home Medications: Medications to take at Discharge Aspirin [Aspirin, Baby] 81 mg PO DAILY@0800 11/13/15 Doxazosin Mesylate [Cardura] 4 mg PO QHS 11/13/15 Finasteride [Proscar] 5 mg PO DAILY 08/10/16 Theophylline [Kevin-Dur] 300 mg PO BID 11/13/15 prednisoLONE eye drops (1 mL) [Pred Forte eye drops (1 mL)] 1 drp RIGHT EYE 4X/DAY PRN PRN 11/13/15 Guaifenesin [Mucinex] 1,200 mg PO BID PRN 07/29/17 Albuterol Inhaler [Ventolin Hfa] 1 - 2 puff INHALATION Q4H PRN PRN #1 inhaler 08/26/17 Ipratropium/Albuterol Sulfate [Duoneb] 3 ml INHALATION 4X/DAY PRN PRN 03/11/18 Nitroglycerin (INPATIENT USE) [Nitrostat] 0.4 mg SUBLINGUAL Q5M PRN 03/11/18 Roflumilast [Daliresp] 500 mcg PO DAILY 03/11/18 Furosemide [Lasix] 20 mg PO DAILY PRN 10/10/18 primidone 50 mg tablet 50 mg PO BID tab 10/27/18 Fluticasone/Vilanterol [Breo Ellipta 100-25 Mcg INH] 1 ea IH DAILY 03/26/19 Acetaminophen [Tylenol] 650 mg PO Q4H PRN PRN 04/11/19 Budesonide/Formoterol 160/4.5 [Symbicort 160/4.5 Mcg Inhaler (SP)] 2 puff INHALATION BID 04/11/19 Escitalopram Oxalate [Lexapro] 10 mg PO DAILY 04/11/19 Magnesium Citrate [Citrate of Magnesia] 300 ml PO DAILY PRN PRN 04/11/19 Lorazepam [Ativan] 1 mg PO BID #10 tab 04/15/19 Benzonatate [Tessalon Perle] 100 mg PO TID PRN 05/08/19 Losartan Potassium 25 mg PO DAILY 05/08/19 Omeprazole 20 mg PO DAILY 05/08/19 Clopidogrel Bisulfate [Clopidogrel] 75 mg PO DAILY 05/09/19 Digoxin 125 mcg PO DAILY 05/09/19 Guaifenesin [Mucinex] 600 mg PO BID #10 tab 05/12/19 Linezolid 600 mg PO BID #20 tab 05/12/19 Mirtazapine [Remeron] 30 mg PO QHS #0 05/12/19 Prednisone 10 mg PO DAILY #30 tab.ds.pk 05/12/19 Following Prescrptions Were Given to Patient: Linezolid 600 mg PO BID #20 tab Transmission Status: [id number] Guaifenesin [Mucinex] 600 mg PO BID #10 tab Transmission Status: [id number] Prednisone 10 mg PO DAILY #30 tab.ds.pk Transmission Status: [id number] Primary Care Physician: Dutch Lee III, MD [Primary Care Provider] - Within 2 Weeks Please Follow Up With: Malcom Burnette MD When: 2 weeks Please Follow Up With: Андрей Hernandes MD When: 2-4 weeks Disposition: Home with Home Health Minutes spent on discharge:: 32 Patient Condition:: Fair Medical Necessity - Tobacco Use Smoking Status: Former smoker Tobacco Use: Cigarettes Meaningful Use Info Meaningful Use Diagnoses (Choose all that apply): None applicable Code Visit Inpatient E&M: 62769 Disch Hosp
[2019-05-12] MEDS: ROFLUMILAST 500 MCG TABLET PO (09:16)
[2019-05-12] MEDS: Losartan Potassium 25 MG Tablet PO (09:16)
[2019-05-12] MEDS: LORazepam 1 MG Tablet PO (09:16)
[2019-05-12] MEDS: Primidone 50 MG Tablet PO (09:17)
[2019-05-12] MEDS: guaiFENesin 600 MG Tablet PO (09:17)
[2019-05-12] MEDS: Finasteride 5 MG Tablet PO (09:17)
[2019-05-12] MEDS: Pantoprazole Sodium 20 MG Tablet PO (09:17)
[2019-05-12] MEDS: Clopidogrel Bisulfate 75 MG Tablet PO (09:17)
[2019-05-12] MEDS: Digoxin 125 MCG Tablet PO (09:18)
[2019-05-12] MEDS: Enoxaparin 40 MG/0.4 ML Syringe SC (09:19)
[2019-05-12 09:23] LABS: Vancomycin, Trough Level 13.5 ug/mL (5.0-15.0)
--- NOTE | 2019-05-12 12:07 | PN.ID_ITS ---
Patient Problems: Active and Suspected Problems (Last Reviewed 05/09/19 @ 05:42 by Nino Calderón MD) UTI (urinary tract infection) (Acute) Dyspnea (Acute) Sepsis (Acute) Cystitis (Acute) Subjective: Feeling better, dysuria improved, no fever - Physical Exam Vitals/I&O's: Vital Signs Temp Pulse Resp BP Pulse Ox 97.8 F 95 18 136/58 H 88 05/12/19 07:56 05/12/19 11:02 05/12/19 11:02 05/12/19 07:56 05/12/19 11:51 Oxygen Flow Rate (L/min) [ 2 AMBULATION with Oxygen] Oxygen Flow Rate (L/min) 2.5 Oxygen Delivery Method Nasal Cannula Weight: 64.5 kg Body Mass Index (BMI) 22.9 Intake and Output for Last 24 Hours 05/10/19 05/11/19 05/12/19 23:59 23:59 23:59 Intake Total 2139 / 2389 1325.50 / 1725.50 1658.75 / 1658.75 Output Total 950 / 1150 1820 / 2045 1250 / 1250 Balance 1189 / 1239 -494.50 / -319.50 408.75 / 408.75 General: Alert, Cooperative, No apparent distress Lungs: Clear to auscultation, Normal air movement Cardiovascular: Regular rate, Regular Rhythm Abdomen: Soft, Non Tender, Non-Distended Skin: No rashes Microbiology Past 72 Hours 05/09/19 02:10 Blood Culture (Wb) - Right Forearm Blood Culture - Preliminary No growth in 48 hours. 05/08/19 23:20 Blood Culture (Wb) - No Site/Description Given Blood Culture - Preliminary No growth in 48 hours. 05/09/19 00:10 Urine, Clean Catch Urine Culture - Final Meth. resistant Staph. aureus Laboratory Results 05/12/19 08:22: Vancomycin Trough 13.5 Current Medications Acetaminophen (Tylenol) 650 mg PO Q6H PRN PRN PRN Reason: Pain Score 1-10/Temp > 100.7 F Last Admin: 05/11/19 06:48 Dose: 650 mg Documented by: Albuterol/Ipratropium (Duoneb) 3 ml INHALATION Q4H.RT PRN PRN Reason: SOB &/OR WHEEZING Last Admin: 05/12/19 11:00 Dose: 3 ml Documented by: Aspirin (Aspirin, Baby) 81 mg PO DAILY@0800 [facility] Last Admin: 05/12/19 08:01 Dose: 81 mg Documented by: Benzonatate (Tessalon Perle) 100 mg PO TID PRN PRN PRN Reason: COUGH Clopidogrel Bisulfate (Plavix) 75 mg PO DAILY [facility] Last Admin: 05/12/19 09:17 Dose: 75 mg Documented by: Digoxin (Lanoxin) 125 mcg PO DAILY [facility] Last Admin: 05/12/19 09:18 Dose: 125 mcg Documented by: Doxazosin Mesylate (Cardura) 4 mg PO QHS [facility] Last Admin: 05/11/19 21:03 Dose: 4 mg Documented by: Enoxaparin Sodium (Lovenox) 40 mg SC DAILY [facility] Last Admin: 05/12/19 09:19 Dose: 40 mg Documented by: Finasteride (Proscar) 5 mg PO DAILY [facility] Last Admin: 05/12/19 09:17 Dose: 5 mg Documented by: Furosemide (Lasix) 20 mg PO DAILY PRN PRN PRN Reason: edema Glucagon () 1 mg IM .X1 PRN PRN Reason: Hypoglycemia Guaifenesin (Mucinex) 600 mg PO BID [facility] Last Admin: 05/12/19 09:17 Dose: 600 mg Documented by: Dextrose (Dextrose 10%-Water) 250 mls @ 999 mls/hr IV .Q16M PRN; Protocol PRN Reason: HYPOGLYCEMIA Sodium Chloride () 250 mls @ 15 mls/hr IV .[id number] PRN PRN Reason: Saline Flush Last Infusion: 05/12/19 10:18 Dose: 15 mls/hr Documented by: Sodium Chloride () 250 mls @ 15 mls/hr IV .[id number] PRN PRN Reason: Additional IVPB Infusion Last Infusion: 05/12/19 08:05 Dose: Infused Documented by: Vancomycin IV Pharmacy to Dose (1 ea/ Sodium Chloride) 500 mls @ 250 mls/hr IV X1 PRN; Protocol PRN Reason: Rx to Dose Vancomycin HCl 750 mg/ Sodium (Chloride) 265 mls @ 250 mls/hr IV Q12H [facility] Last Infusion: 05/12/19 10:18 Dose: Infused Documented by: Lorazepam (Ativan) 1 mg PO BID [facility] Last Admin: 05/12/19 09:16 Dose: 1 mg Documented by: Losartan Potassium (Cozaar) 25 mg PO DAILY [facility] Last Admin: 05/12/19 09:16 Dose: 25 mg Documented by: Magnesium Citrate (Citrate Of Magnesia) 300 ml PO DAILY PRN PRN PRN Reason: Constipation Nutritional Formula (Lactose Free) (Glucerna Shake) 120 ml PO TIDCM [facility] Last Admin: 05/12/19 08:04 Dose: 120 ml Documented by: Ondansetron HCl (Zofran) 4 mg IV Q8H PRN PRN PRN Reason: NAUSEA/VOMITING Pantoprazole Sodium (Protonix) 20 mg PO DAILY [facility] Last Admin: 05/12/19 09:17 Dose: 20 mg Documented by: Prednisolone Acetate (Pred Forte Eye Drops (5 Ml)) 1 drop OPHTHALMIC 4X/DAY PRN PRN PRN Reason: DRY EYES Prednisone () 40 mg PO DAILY@0800 [facility] Last Admin: 05/12/19 08:01 Dose: 40 mg Documented by: Primidone (Mysoline) 50 mg PO BID [facility] Last Admin: 05/12/19 09:17 Dose: 50 mg Documented by: Sodium Chloride () 10 - 40 ml IV UD PRN PRN Reason: SALINE FLUSH Last Admin: 05/10/19 23:16 Dose: 10 ml Documented by: Theophylline (Kevin-Dur) 300 mg PO BID [facility] Last Admin: 05/12/19 09:17 Dose: 300 mg Documented by: Medical Necessity - Tobacco Use Smoking Status: Former smoker Tobacco Use: Cigarettes Route of nutrition/ use of supplements: [] Nutritional Intake: [] IV Site: [] Colvin Catheter: [] - Assessment/Plan Antibiotics: [] Assessment/Plan: [] Active and Suspected Problems (Last Reviewed 05/09/19 @ 05:42 by Nino Calderón MD) UTI (urinary tract infection) (Acute) Dyspnea (Acute) Sepsis (Acute) Cystitis (Acute) MRSA complicated uti with recent urolift - On vanc. Plan for discharge will be 10 days of po linezolid. Will stop remeron while he is on abx to limit risk of serotonin syndrome, he is to watch for fever. May abx allergies, seem like most are associated with worsening COPD. Dysuria improved today. Will follow as needed
--- NOTE | 2019-05-12 12:12 | CASEMGMT ---
Addendum entered by Alayna Stephens 05/12/19 12:17: SW received call from Rasheeda at [facility] stating she will be over at [facility] to meet with pt and pt's regarding Palliative Care. Original Note: Social Work Note SW received message from Rasheeda at [facility] stating she has attempted twice to call pt's with no answer and left messages with no call back. Rasheeda didn't know if pt's was at [facility] and if she could call pt's room. SW in to speak with pt. Pt states his is at [facility] just in the bathroom at this time. SW updated pt that Palliative Care wants to call pt's room and pt is agreeable to this. LEONARDO placed a call to Rasheeda at [facility] and provided pt's room number. Rasheeda states she will call pt's room. Alayna Stephens BAKERY DEMONSTRATOR, SSAS DEVELOPER
--- NOTE | 2019-05-12 13:21 | CASEMGMT ---
RN CM updated that patient will need home oxygen at discharge. RN CM in to discuss with patient. Patient would like [employer]. RN RAZA received script for home oxygen. Referral sent to [facility] and arranged for deliver to patient's room prior to discharge. Patient and updated.
--- NOTE | 2019-05-12 14:00 | CASEMGMT ---
Social Work Note Rasheeda with [facility] states pt signed with Hospice and will be going home with Hospice services. Alayna Stephens PERSONAL LINES APPRAISER, CUPOLA OPERATOR INSULATION
[2019-05-15 05:06] LABS: Epinephrine, Pl <15 pg/mL (0-62); Norepinephrine, Pl 482 pg/mL (0-874)
[2019-05-15 08:37] LABS: Dopamine, Pl <30 pg/mL (0-48)
--- NOTE | 2019-05-15 13:34 | CASEMGMT ---
SOFIA PERSON DC PHONE CALL DC DATE: 05.14.2019 DC Disposition: Home with Hospice Diagnosis on Discharge: Sepsis, UTI LACE/STRATA: 15/ Intro role of CM to patient's on phone. She states Hospice staff has been to house. Nurse is coming again tomorrow. states they have been supportive and she has no concerns re: pt being at home. Filippo KON RN AC
--- NOTE | 2019-05-15 13:40 | CASEMGMT ---
SOFIA PERSON DC PHONE CALL DC DATE: 05.12.2019 DC Disposition: Home with Hospice Diagnosis on Discharge: Sepsis, UTI LACE/STRATA: 15/ Intro role of CM to patient's on phone. She states Hospice staff has been to house. Nurse is coming again tomorrow. states they have been supportive and she has no concerns re: pt being at home. Filippo KON RN AC
== END 2019-05-12 18:32 | disposition hospice, home (50) | DRG 872 ==
LOC: ED 05-09 02:31 → MS3 05-09 03:54
PROVIDERS: Admitting Provider Hospitalist; Emergency Provider Emergency Medicine; PCP Family Medicine; Referring Provider Family Medicine
DX: A41.9 Sepsis, unspecified organism (principal); F13.20 Sedative, hypnotic or anxiolytic dependence, uncomplicated; N39.0 Urinary tract infection, site not specified; E46 Unspecified protein-calorie malnutrition; J44.9 Chronic obstructive pulmonary disease, unspecified; N41.9 Inflammatory disease of prostate, unspecified; F41.9 Anxiety disorder, unspecified; I25.10 Atherosclerotic heart disease of native coronary artery without angina pectoris; K21.9 Gastro-esophageal reflux disease without esophagitis; G47.33 Obstructive sleep apnea (adult) (pediatric); N18.2 Chronic kidney disease, stage 2 (mild); E11.22 Type 2 diabetes mellitus with diabetic chronic kidney disease; I12.9 Hypertensive chronic kidney disease with stage 1 through stage 4 chronic kidney disease, or unspecified chronic kidney disease; Z95.5 Presence of coronary angioplasty implant and graft; Z90.2 Acquired absence of lung [part of]; Z87.891 Personal history of nicotine dependence; B95.62 Methicillin resistant Staphylococcus aureus infection as the cause of diseases classified elsewhere; Z68.22 Body mass index [BMI] 22.0-22.9, adult
CPT/HCPCS: 36415; 71046; 71275; 80048; 80202; 81001; 82384; 82533; 83605; 84484; 85025; 87040; 87077; 87086; 87088; 87186; 93005; 94640; 97116; 97163; 97166; 97530; 97802; 99285; J7030; J7040; J7050; Q9967; A4216

== ENCOUNTER → 2019-05-08 | Outpatient (CLI) | payer MEDICARE, BC, SELFPAY ==
[2018-11-07 13:51] VITALS: BMI 23.5
[2019-04-14 08:30] VITALS: BMI 23.9
== END | disposition home or self-care (01) ==
LOC: LABSPEC 17:12
PROVIDERS: PCP Family Medicine; Referring Provider Urology; Visit Provider Urology
DX: R30.0 Dysuria (principal)
CPT/HCPCS: 87086

== ENCOUNTER 2020-04-26 13:07 | Day surgery (SDC) | payer MEDICARE, BC, SELFPAY ==
[2018-11-07 13:51] VITALS: BMI 23.5
[2019-12-06 14:03] VITALS: BMI 22.8
[2020-04-24 14:21] LABS: Hematocrit 36.3 % (40-54); Hemoglobin 11.4 g/dL (13.0-16.5); Mean Corp Hgb Conc 31.4 g/dL (32-36); Mean Corpuscular Hgb 25.9 pg (27.0-32.0); Mean Corpuscular Volume 82.5 fL (80-94); Platelet Count 293 K/mm3 (150-450); RBC Distribution Width CV 14.1 % (11.6-14.6); RBC Distribution Width SD 42.7 fl (35.1-43.9)
[2020-04-24 14:56] LABS: Anion Gap 5 (5-15); BUN 19 mg/dL (7-18); BUN/Creat Ratio 15.6 RATIO (10-20); Chloride 102 mmol/L (98-107); Creatinine, Serum 1.22 mg/dL (0.70-1.30); EST Glomerular Filtration Rate 60 mL/min (>60); Est Glom Filt Rate - Afr Amer 73 mL/min (>60); Glucose 95 mg/dL (74-106); Potassium 3.9 mmol/L (3.5-5.1); Sodium Level 137 mmol/L (136-145)
[2020-04-24 15:02] LABS: Hemoglobin A1c 6.7 % (3.8-5.6)
[2020-04-26] VITALS (13 sets, daily range): BP systolic 110–152; BP diastolic 58–72; PULSE 80–100; RESP 16–20; TEMP 36.1–37; O2SAT 93–100; BMI 23.8
--- NOTE | 2020-04-26 08:00 | HP.PCM_ITS ---
History of Present Illness Date of Admission: 04/26/20 Chief Complaint: Retention of urine The patient is a 80 year old male with history with BPH and obstruction has been having more difficulties with urination is developed retention of urine so can proceed with a TURP to alleviate obstruction. 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 Allergies gabapentin Allergy (Unknown, Verified 04/19/20 09:58) Unknown acetylcysteine [From Mucomyst] Allergy (Verified 04/19/20 09:58) Shortness of breath alprazolam [From Xanax] Allergy (Verified 04/19/20 09:58) breathing issues atorvastatin [From Lipitor] Allergy (Verified 04/19/20 09:58) PT UNSURE OF REACTION belladonna alkaloids Allergy (Verified 04/19/20 09:58) Unknown cephalexin Allergy (Verified 04/19/20 09:58) Unknown ciprofloxacin [From Cipro] Allergy (Verified 04/19/20 09:58) Unknown dicyclomine Allergy (Verified 04/19/20 09:58) Unknown diltiazem Allergy (Verified 04/19/20 09:58) Unknown doxycycline Allergy (Verified 04/19/20 09:58) Shortness of breath ezetimibe Allergy (Verified 04/19/20 09:58) Unknown fluvastatin Allergy (Verified 04/19/20 09:58) Unknown metoprolol [From Toprol XL] Allergy (Verified 04/19/20 09:58) Unknown nitrofurantoin Allergy (Verified 04/19/20 09:58) Unknown phenobarbital Allergy (Verified 04/19/20 09:58) Unknown prochlorperazine [From Compazine] Allergy (Verified 04/19/20 09:58) Unknown promethazine Allergy (Verified 04/19/20 09:58) PT UNSURE OF REACTION simvastatin [From Zocor] Allergy (Verified 04/19/20 09:58) Unknown Taoxkyy-Jtn-Mne Reductase Inhibitor Allergy (Verified 04/19/20 09:58) Unknown Sulfa (Sulfonamide Antibiotics) Allergy (Verified 04/19/20 09:58) PT UNSURE OF REACTION sulfamethoxazole [From Bactrim] Allergy (Verified 04/19/20 09:58) Unknown tamsulosin [From Flomax] Allergy (Verified 04/19/20 09:58) Unknown trimethoprim [From Bactrim] Allergy (Verified 04/19/20 09:58) Unknown carvedilol Adverse Reaction (Verified 04/19/20 09:58) Vomiting NOXICIN Allergy (Uncoded 04/19/20 09:58) PT UNSURE OF REACTION Home Medications: Ambulatory Orders Medication Instructions Recorded Doxazosin Mesylate [Cardura] 4 mg PO QHS 11/13/15 Finasteride [Proscar] 5 mg PO DAILY 11/13/15 Theophylline [Kevin-Dur] 300 mg PO BID 11/13/15 Guaifenesin [Mucinex] 1,200 mg PO BID PRN 07/29/17 Albuterol Inhaler [Ventolin Hfa] 1 - 2 puff INHALATION Q4H PRN PRN 08/26/17 #1 inhaler Ipratropium/Albuterol Sulfate 3 ml INHALATION 4X/DAY PRN PRN 03/11/18 [Duoneb] Nitroglycerin (INPATIENT USE) 0.4 mg SUBLINGUAL Q5M PRN 03/11/18 [Nitrostat] primidone 50 mg tablet 50 mg PO BID tab 10/27/18 Acetaminophen [Tylenol] 650 mg PO Q4H PRN PRN 04/11/19 Magnesium Citrate [Citrate of 300 ml PO DAILY PRN PRN 04/11/19 Magnesia] Lorazepam [Ativan] 1 mg PO BID #10 tab 04/15/19 Omeprazole 20 mg PO DAILY 05/08/19 Clopidogrel Bisulfate [Clopidogrel] 75 mg PO DAILY 05/09/19 Digoxin 125 mcg PO DAILY 05/09/19 Prednisone 10 mg PO DAILY #30 tab.ds.pk 05/12/19 azithromycin 250 mg tablet 250 mg PO DAILY 12/06/19 budesonide-formoterol HFA 160 2 puff INHALATION BID 12/06/19 mcg-4.5 mcg/actuation aerosol inhaler furosemide 20 mg tablet 40 mg PO DAILY tab 12/06/19 losartan 25 mg tablet 12.5 mg PO BID tab 12/06/19 mirtazapine 15 mg tablet 15 mg PO QHS tab 12/06/19 oxycodone 5 mg tablet 2.5 mg PO BID tab 12/06/19 roflumilast 500 mcg tablet 250 mcg PO BID tab 12/06/19 Ipratropium/Albuterol Respimat 1 puff INHALATION DAILY 04/19/20 [Combivent Respimat Inhal [place]] Surgical History: Surgical History (Last Reviewed 12/06/19 @ 14:16 by Yuko Dangelo) 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 BL upper lobes Presence of coronary angioplasty implant and graft Onset Date: ~11/07/18 Z95.5 PTCA/stent to mid RCA @ [facility] 10/18/01; PTCA/TAMI of the prox Diag #1, PTCA/TAMI of the prox LAD, PTCA/TAMI of the mid LCX 10/12/18; ; PTCA/TAMI to mid RCA and PTCA/TAMI to prox/ostial RCA 11/07/18 urolift Surgical History: - - Lobectomy, cardiac stent placement Psychiatric History: Anxiety - With panic attacks, Depression Smoking Status: Former smoker Tobacco Use: Non-smoker - *Family History Maternal Family History: Family History (Last Reviewed 12/06/19 @ 14:16 by Yuko Dangelo) Mother CAD (coronary artery disease) Hypertension Brother CAD (coronary artery disease) Hypertension Other Heart disease History Items: Hypertension Paternal Family History: Family History (Last Reviewed 12/06/19 @ 14:16 by Yuko Dangelo) Mother CAD (coronary artery disease) Hypertension Brother CAD (coronary artery disease) Hypertension Other Heart disease History Items: - Review of Systems Constitutional: Denies: Chills, Fever, Weight Change HEENT: Denies: Head Aches, Sinus Congestion, Sinus Drainage Cardiovascular: Denies: Chest Pain, Palpitations Respiratory: Denies: Cough, Shortness of breath at rest, Sputum production Gastrointestinal: Denies: Abdominal Pain, Nausea, Vomiting Genitourinary: Denies: Dysuria Musculoskeletal: Denies: Joint Pain, Joint Tenderness Skin: Denies: Rash, Wounds Neurological: Denies: Numbness, Tingling, Focal weakness Psychiatric: Denies: Anxiety, Depression, Homicidal Ideations, Suicidal Ideations Hematologic/ Lymphatic: Denies: Easy Bruising, Easy Bleeding VTE Information - Inpt Only VTE Present on Admission: No - Physical Exam Vitals/I&O's: Body Mass Index (BMI) 22.8 General: Alert, Oriented x3, Cooperative HEENT: Atraumatic, PERRLA, EOMI, Normocephalic Neck: Supple, No JVD, Negative Carotid Bruits Lungs: Clear to auscultation, Normal air movement Cardiovascular: Regular rate, No murmurs Abdomen: Bowel Sounds Present, Soft, Non Tender Extremities: No edema, Capillary Refill Less than 3 Seconds Skin: No rashes, No breakdown Musculoskeletal: No Tenderness to Palpation of Joints or Extremities Neurological: Cranial nerves II-XII grossly intact Psych/Mental Status: Normal Affect, Appropriate Microbiology Past 72 Hours 04/24/20 13:20 Interface Orders SARS-CoV-2 Antigen (Rapid) - Final Current Medications Cefazolin Sodium 2 gm/ Sodium (Chloride) 110 mls @ 150 mls/hr IV PREOP ONE Stop: 04/26/20 12:28 Assessment/Plan All Active Problems (Last Reviewed 12/06/19 @ 14:16 by Yuko Dangelo) Hematuria (Acute) UTI (urinary tract infection) (Acute) Dyspnea (Acute) Sepsis (Acute) Cystitis (Acute) Plan to proceed with a TURP
[2020-04-26] MEDS: Lactated Ringers 1,000 ML 75 ML IV (14:11)
[2020-04-26] MEDS: Ipratropium/Albuterol Sulfate 3 ML AMPUL.NEB INHALATION ×2 (14:26→19:19)
[2020-04-26] MEDS: Cefazolin 2 GM in 0.9% Normal Saline 100 ML IV (14:38)
--- NOTE | 2020-04-26 15:10 | PROS_PTH ---
PATIENT: NIESHA SHUKLA [place] [facility] [id number] AGE/SX: 80/M ROOM: RE04/26/[address]: Dr. Malcom Burnette MD : [id number] BED: DIS: 04/27/2020 SPEC #: [id number] RECD: 04/29/20 07:27 STATUS: FARHAT JARAMILLO #: [id number] JESSA: 04/26/20 15:[address]: Malcom Burnette DEPT: SURGICAL PATHOLOGY RECD BY: Luz Jimenez ENTERED: 04/29/20 10:01 SP TYPE: TURP OTHR DR: Dr. Dutch Lee III, MD Tissues: Prostate, NOS Procedures: Surgery Specimen Level IV HEADER OPERATION: Cysto, TUR prostate, Olymp[employer] PRE-OP DIAGNOSIS: Hematuria, UTI, dyspnea, sepsis, cystitis TISSUE SUBMITTED: Prostate chips MICROSCOPIC DIAGNOSIS Prostate chips, TUR: Benign prostatic hyperplasia, predominantly consisting of stromal component. Acute and chronic inflammation. NELSY:sterling 04/30/2020 MICROSCOPIC DESCRIPTION Slides are reviewed. GROSS DESCRIPTION Received is one container labeled with the patient's name and designated prostate chips. The specimen consists of multiple irregular fragments of pink-bains, rubbery, soft tissue that in aggregate weigh 18.2 gm and measure in aggregate 6.5 x 6.5 x 2 cm. Emergency Communications Dispatcher portions are submitted in ten cassettes. / AM:sterling 04/29/20 TC:5 CPT: 55604
--- NOTE | 2020-04-26 15:58 | DCINST_ITS ---
Discharge Diet: No Restrictions Discharge Activity: Return to Normal Activity, May Not Drive - for 2 days. Additional Activity Instructions:: Please be aware that pain medications may cause nausea. You should typically eat light foods as you take your pain medication. Pain medication may cause constipation, if this is a problem for you, please discuss with your doctor. Suture Line Care: Avoid Pulling/Pushing, Avoid Pinching/Bending Instructions: Transurethral Resection of the Prostate (TURP): Home Recovery Allergies/Adverse Reactions: Allergies gabapentin Allergy (Unknown, Verified 04/19/20 09:58) Unknown acetylcysteine [From Mucomyst] Allergy (Verified 04/19/20 09:58) Shortness of breath alprazolam [From Xanax] Allergy (Verified 04/19/20 09:58) breathing issues atorvastatin [From Lipitor] Allergy (Verified 04/19/20 09:58) PT UNSURE OF REACTION belladonna alkaloids Allergy (Verified 04/19/20 09:58) Unknown cephalexin Allergy (Verified 04/19/20 09:58) Unknown ciprofloxacin [From Cipro] Allergy (Verified 04/19/20 09:58) Unknown dicyclomine Allergy (Verified 04/19/20 09:58) Unknown diltiazem Allergy (Verified 04/19/20 09:58) Unknown doxycycline Allergy (Verified 04/19/20 09:58) Shortness of breath ezetimibe Allergy (Verified 04/19/20 09:58) Unknown fluvastatin Allergy (Verified 04/19/20 09:58) Unknown metoprolol [From Toprol XL] Allergy (Verified 04/19/20 09:58) Unknown nitrofurantoin Allergy (Verified 04/19/20 09:58) Unknown phenobarbital Allergy (Verified 04/19/20 09:58) Unknown prochlorperazine [From Compazine] Allergy (Verified 04/19/20 09:58) Unknown promethazine Allergy (Verified 04/19/20 09:58) PT UNSURE OF REACTION simvastatin [From Zocor] Allergy (Verified 04/19/20 09:58) Unknown Cxhxzba-Idv-Jvw Reductase Inhibitor Allergy (Verified 04/19/20 09:58) Unknown Sulfa (Sulfonamide Antibiotics) Allergy (Verified 04/19/20 09:58) PT UNSURE OF REACTION sulfamethoxazole [From Bactrim] Allergy (Verified 04/19/20 09:58) Unknown tamsulosin [From Flomax] Allergy (Verified 04/19/20 09:58) Unknown trimethoprim [From Bactrim] Allergy (Verified 04/19/20 09:58) Unknown carvedilol Adverse Reaction (Verified 04/19/20 09:58) Vomiting NOXICIN Allergy (Uncoded 04/19/20 09:58) PT UNSURE OF REACTION Medications to take at Discharge Doxazosin Mesylate [Cardura] 4 mg PO QHS 11/13/15 Finasteride [Proscar] 5 mg PO DAILY 11/13/15 Theophylline [Kevin-Dur] 300 mg PO BID 11/13/15 Guaifenesin [Mucinex] 1,200 mg PO BID PRN 07/29/17 Albuterol Inhaler [Ventolin Hfa] 1 - 2 puff INHALATION Q4H PRN PRN #1 inhaler 08/26/17 Ipratropium/Albuterol Sulfate [Duoneb] 3 ml INHALATION 4X/DAY PRN PRN 03/11/18 Nitroglycerin (INPATIENT USE) [Nitrostat] 0.4 mg SUBLINGUAL Q5M PRN 03/11/18 primidone 50 mg tablet 50 mg PO BID tab 10/27/18 Acetaminophen [Tylenol] 650 mg PO Q4H PRN PRN 04/11/19 Magnesium Citrate [Citrate of Magnesia] 300 ml PO DAILY PRN PRN 04/11/19 Lorazepam [Ativan] 1 mg PO BID #10 tab 04/15/19 Omeprazole 20 mg PO DAILY 05/08/19 Clopidogrel Bisulfate [Clopidogrel] 75 mg PO DAILY 05/09/19 Digoxin 125 mcg PO DAILY 05/09/19 Prednisone 10 mg PO DAILY #30 tab.ds.pk 05/12/19 azithromycin 250 mg tablet 250 mg PO DAILY 12/06/19 budesonide-formoterol HFA 160 mcg-4.5 mcg/actuation aerosol inhaler 2 puff INHALATION BID 12/06/19 furosemide 20 mg tablet 40 mg PO DAILY tab 12/06/19 losartan 25 mg tablet 12.5 mg PO BID tab 12/06/19 mirtazapine 15 mg tablet 15 mg PO QHS tab 12/06/19 oxycodone 5 mg tablet 2.5 mg PO BID tab 12/06/19 roflumilast 500 mcg tablet 250 mcg PO BID tab 12/06/19 Ipratropium/Albuterol Respimat [Combivent Respimat Inhal [place]] 1 puff INHALATION DAILY 04/19/20 Primary Care Physician: Dutch Lee III, MD [Primary Care Provider] - Test Results: Test results from this visit will be discussed in further detail at your follow- up appointment, if applicable. Please Follow Up With: Malcom Burnette MD When: in 2 weeks, please call to make an appointment.
--- NOTE | 2020-04-26 16:01 | PCM.OPRPT ---
Report of Operation Date of Procedure: 04/26/20 Pre-Operative Diagnosis: BPH with obstruction urinary retention Post-Operative Diagnosis: Same Surgery/Procedure Performed:: Transurethral section of the prostate Description of Surgical Findings:: In the preoperative setting I discussed with the patient how the surgery would be done with expect afterwards. We discussed how a prostate resection is done and we discussed the risk of the surgery including, bleeding, infection. We discussed the possibility that the resection of the prostate may not alleviate his urinary symptoms. We discussed the small risk of developing scar tissue along the urethral channel and strictures. We also discussed the chance of the prostate could grow back and he may need further surgery or treatment in the future for prostate problems. Patient was taken back to the operating room, timeout procedure was performed, he was identified and marked and placed on the operating room table. He underwent general anesthesia. He was placed in dorsolithotomy position. Penis and testicles were prepped and draped in usual sterile fashion. Went into the bladder using the visual obturator with a resectoscope. Once inside the bladder identified the right and left ureteral orifice. I then identified the prostate and the anatomy of the prostate. I marked out the area of the sphincter and the verumontanum was identified. I then proceeded with the prostate resection first resected the median lobe. And then resected the right lobe of the prostate. Then to resect the left lobe of the prostate. I then resected the apical tissue of the prostate. Made sure that there was no injury to the sphincter or the verumontanum was still intact. At the end of the resection all the chips were Ellik out of the bladder. I then identified the left and right ureteral orifice and these were confirmed to be in good position and effluxing and not injured. The resectoscope was removed, a 22 Japanese catheter was placed into the bladder on continuous irrigation. And the urine was fairly light pink color and draining normally. He was taken back to the PACU in good condition. Type of Anesthesia:: General Drains: 22fr 3 way - Admit VTE Documentation VTE Present on Admission: No VTE Mechan Device Prophylaxis: SCD's
[2020-04-26] MEDS: oxyCODONE 5 MG Tablet PO (19:07)
[2020-04-26] MEDS: Cefazolin 1 GM/50 ML BAG IV (21:23)
[2020-04-26] MEDS: 0.9% Normal Saline 1,000 ML 75 ML IV (21:23)
[2020-04-26] MEDS: oxyCODONE 5 MG Tablet 2.5 MG PO (21:24)
[2020-04-26] MEDS: LORazepam 1 MG Tablet PO (21:24)
[2020-04-26] MEDS: Docusate Sodium 100 MG Capsule PO (21:28)
[2020-04-26] MEDS: Losartan Potassium 25 MG Tablet 12.5 MG PO (21:28)
[2020-04-26] MEDS: Primidone 50 MG Tablet PO (21:28)
[2020-04-26] MEDS: Mirtazapine 15 MG Tablet PO (21:28)
[2020-04-26] MEDS: Mag Hydrox/Al Hydrox/Simeth 30 ML UDC PO (22:51)
[2020-04-26] MEDS: Albuterol 2.5 MG/3 ML VIAL.NEB. INHALATION (23:19)
--- NOTE | 2020-04-27 01:27 | PCS.PANDOC ---
Addendum entered by Jose Luis Duke 04/27/20 01:28: adjust time to 1307 Original Note: PANDEMIC DOCUMENTATION INITIATED: Date: 04/26/2020 Time: 1301
[2020-04-27 02:32] VITALS: BP 116/60; PULSE 96; RESP 18; TEMP 36.8; O2SAT 98
[2020-04-27] MEDS: oxyCODONE 5 MG Tablet PO (02:35)
[2020-04-27 03:24] VITALS: PULSE 96; RESP 18
[2020-04-27] MEDS: Albuterol 2.5 MG/3 ML VIAL.NEB. INHALATION (03:24)
[2020-04-27] MEDS: Acetaminophen 325 MG Tablet PO (05:48)
[2020-04-27] MEDS: Cefazolin 1 GM/50 ML BAG IV ×2 (05:48→14:01)
[2020-04-27 07:06] VITALS: PULSE 98; RESP 20; O2SAT 96
[2020-04-27] MEDS: Ipratropium/Albuterol Sulfate 3 ML AMPUL.NEB INHALATION ×2 (07:06→10:40)
[2020-04-27 08:06] VITALS: BP 132/52; PULSE 92; RESP 20; TEMP 36.4; O2SAT 100
[2020-04-27] MEDS: Pantoprazole Sodium 40 MG Tablet PO (09:10)
[2020-04-27] MEDS: Digoxin 250 MCG Tablet 125 MCG PO (09:10)
[2020-04-27] MEDS: predniSONE 10 MG Tablet PO (09:10)
[2020-04-27] MEDS: Primidone 50 MG Tablet PO (09:10)
[2020-04-27] MEDS: Docusate Sodium 100 MG Capsule PO (09:10)
[2020-04-27] MEDS: Furosemide 40 MG Tablet PO (09:10)
[2020-04-27] MEDS: oxyCODONE 5 MG Tablet 2.5 MG PO (09:10)
[2020-04-27] MEDS: LORazepam 1 MG Tablet PO (09:10)
[2020-04-27] MEDS: Losartan Potassium 25 MG Tablet 12.5 MG PO (09:11)
--- NOTE | 2020-04-27 09:17 | CASEMGMT ---
Copies of the living will/POA in the summary tab of the echart. CHRISTA Lyon
[2020-04-27] MEDS: guaiFENesin 1,200 MG Tablet 1200 MG PO (09:28)
[2020-04-27] MEDS: 0.9% Normal Saline 1,000 ML 75 ML IV (10:21)
[2020-04-27 10:42] VITALS: PULSE 112; RESP 19
[2020-04-27 13:18] VITALS: BP 142/64; PULSE 119; RESP 18; TEMP 36.5; O2SAT 94
[2020-04-27] MEDS: Mag Hydrox/Al Hydrox/Simeth 30 ML UDC PO (13:21)
== END 2020-04-27 14:38 | disposition home or self-care (01) ==
LOC: SDC 13:07 → AC 13:08 → MS3 16:32
PROVIDERS: Anesthesiology; PCP Family Medicine; Referring Provider Urology; Visit Provider Urology
PROC: (CPT 52601; principal; 2020-04-26 15:00)
DX: N40.1 Benign prostatic hyperplasia with lower urinary tract symptoms (principal); N13.8 Other obstructive and reflux uropathy; R33.8 Other retention of urine; Z20.828 Contact with and (suspected) exposure to other viral communicable diseases; E11.22 Type 2 diabetes mellitus with diabetic chronic kidney disease; N18.2 Chronic kidney disease, stage 2 (mild); F32.9 Major depressive disorder, single episode, unspecified; F41.9 Anxiety disorder, unspecified; I25.10 Atherosclerotic heart disease of native coronary artery without angina pectoris; J44.9 Chronic obstructive pulmonary disease, unspecified; K21.9 Gastro-esophageal reflux disease without esophagitis; G47.33 Obstructive sleep apnea (adult) (pediatric); Z85.118 Personal history of other malignant neoplasm of bronchus and lung; Z87.440 Personal history of urinary (tract) infections; Z86.19 Personal history of other infectious and parasitic diseases; Z95.5 Presence of coronary angioplasty implant and graft; Z79.02 Long term (current) use of antithrombotics/antiplatelets; Z79.899 Other long term (current) drug therapy; Z87.891 Personal history of nicotine dependence
CPT/HCPCS: 00914; 52601; 36415; 80048; 83036; 85027; 87426; 88305; 94640; C9803; J7030; J7120; J2405

== ENCOUNTER 2020-05-02 14:16 | Outpatient (RCR) | payer MEDICARE, BC, SELFPAY ==
[2018-11-07 13:51] VITALS: BMI 23.5
[2020-04-26 13:37] VITALS: BMI 23.8
== END 2020-05-02 23:59 ==
LOC: IMMUN 14:16
PROVIDERS: PCP Family Medicine; Visit Provider Family Medicine
DX: Z23 Encounter for immunization (principal)
CPT/HCPCS: 0011A; 0012A; 91301

== ENCOUNTER 2023-12-05 17:05 | Inpatient (IN) | payer MEDICARE, BC, SELFPAY ==
[2018-11-07 13:51] VITALS: BMI 23.5
[2023-12-05 17:06] VITALS: BP 135/80; PULSE 64; RESP 18; TEMP 36.6; O2SAT 98; BMI 23.5
--- NOTE | 2023-12-05 18:15 | ED.VIS.BACK ---
HPI History of Present Illness Chief Complaint: Back Informant: patient and family Narrative Narrative: 83-year-old hospice patient (for COPD) noted to the emergency room with back pain. Patient states that he fell twice in the past couple weeks. The last about 9 days ago. He states that he fell striking his right lower back against a cabinetry. Hospice increased his pain medication but it was making him very sedated so they backed off and utilize Tylenol plus oxycodone. He is having difficulty moving and getting out of bed. He describes a sharp stabbing pain in the low back. He points to the right low back/flank area as the area that hurts. He had family of not noticed any bruising or blood in the urine. He denies any abdominal pain. They called hospice today stating its become increasingly hard to care for him because of this pain and that they were coming to the emergency room to find out what is causing his pain. [facility] Medical History (Updated 12/05/23 @ 22:[address] Asad Sims, DO) S/P coronary artery stent placement (~11/07/18) Atherosclerotic heart disease of [place] coronary artery without angina pectoris Abnormal stress test Former smoker GERD (gastroesophageal reflux disease) BPH (benign prostatic hyperplasia) History of malignant neoplasm of lung CARLIN (obstructive sleep apnea) Chronic renal failure, stage 2 (mild) Chest pain Type II diabetes mellitus COPD (chronic obstructive pulmonary disease) Anxiety disorder Home Medications ?Medication ?Instructions ?Recorded ?Last Taken ?Type theophylline 300 mg 300 mg PO DAILY breathing 11/13/15 10/10/18 09:00 History tablet,extended release,12 hr 300 mg albuterol sulfate 90 mcg/actuation 1 - 2 puff inhalation Q4H PRN PRN 08/26/17 05/08/19 Rx aerosol inhaler Sob &/Or Wheezing ##1 ipratropium 0.5 mg-albuterol 3 mg 3 ml inhalation 4X/DAY PRN PRN Sob 03/11/18 10/10/18 18:00 History (2.5 mg base)/3 mL nebulization &/Or Wheezing soln nitroglycerin 0.4 mg sublingual 0.4 mg sublingual Q5M PRN Chest 03/11/18 Unknown History tablet Pain primidone 50 mg tablet 150 mg PO TID seizures 10/27/18 05/08/19 History acetaminophen 325 mg capsule 650 mg PO Q4H PRN PRN pain/fever 04/11/19 Unknown History omeprazole 20 mg capsule,delayed 20 mg PO DAILY stomach 05/08/19 05/08/19 History release digoxin 250 mcg (0.25 mg) tablet 125 mcg PO DAILY heart 05/09/19 05/08/19 History azithromycin 250 mg tablet 250 mg PO DAILY 12/06/19 Unknown History budesonide-formoterol HFA 160 2 puff inhalation BID copd 12/06/19 Unknown History mcg-4.5 mcg/actuation aerosol inhaler furosemide 20 mg tablet 40 mg PO BID edema 12/06/19 Unknown History losartan 25 mg tablet 12.5 mg PO BID bp 12/06/19 Unknown History mirtazapine 15 mg tablet 15 mg PO QHS sleep 12/06/19 Unknown History oxycodone 5 mg tablet 5 mg PO Q6H 12/06/19 Unknown History roflumilast 500 mcg tablet 250 mcg PO BID breathing 12/06/19 Unknown History ipratropium 20 mcg-albuterol 100 1 puff inhalation DAILY 04/19/20 Unknown History mcg/actuation mist for inhalation aspirin 81 mg tablet,delayed 81 mg PO DAILY 06/13/20 Unknown History release (Adult Aspirin Regimen) guaifenesin 1,200 mg tablet, 1,200 mg PO QAM Congestion 06/13/20 Unknown History extended release 12 hr prednisone 10 mg tablet 20 mg PO DAILY 06/13/20 Unknown History finasteride 5 mg tablet 5 mg PO DAILY 12/05/23 Unknown History lorazepam 1 mg tablet 1 mg PO Q6H PRN anxiety 12/05/23 Unknown History sennosides 8.6 mg-docusate sodium 1 tab-cap PO QHS 12/05/23 Unknown History 50 mg tablet sertraline 100 mg tablet 100 mg PO DAILY 12/05/23 Unknown History Allergy/AdvReac Type Severity Reaction Status Date / Time esomeprazole Allergy Unknown NEEDS Verified 11/30/22 09:50 FOLLOW-UP gabapentin Allergy Unknown Unknown Verified 06/13/20 10:13 acetylcysteine (From Allergy Shortness Verified 06/13/20 10:13 Mucomyst) of breath alprazolam (From Xanax) Allergy breathing Verified 06/13/20 10:13 issues atorvastatin (From Lipitor) Allergy PT UNSURE Verified 06/13/20 10:13 OF REACTION belladonna alkaloids Allergy Unknown Verified 06/13/20 10:13 cephalexin Allergy Unknown Verified 06/13/20 10:13 ciprofloxacin (From Cipro) Allergy Unknown Verified 06/13/20 10:13 dicyclomine Allergy Unknown Verified 06/13/20 10:13 diltiazem Allergy Unknown Verified 06/13/20 10:13 doxycycline Allergy Shortness Verified 06/13/20 10:13 of breath ezetimibe Allergy Unknown Verified 06/13/20 10:13 fluvastatin Allergy Unknown Verified 06/13/20 10:13 metoprolol (From Toprol XL) Allergy Unknown Verified 06/13/20 10:13 nitrofurantoin Allergy Unknown Verified 06/13/20 10:13 phenobarbital Allergy Unknown Verified 06/13/20 10:13 prochlorperazine (From Allergy Unknown Verified 06/13/20 10:13 Compazine) promethazine Allergy PT UNSURE Verified 06/13/20 10:13 OF REACTION simvastatin (From Zocor) Allergy Unknown Verified 06/13/20 10:13 Bflhind-DBP-WjZ Reductase Allergy Unknown Verified 06/13/20 10:13 Inhibitor (Ohsprij-Tmx-Fuj Reductase Inhibitor) Sulfa (Sulfonamide Allergy PT UNSURE Verified 06/13/20 10:13 Antibiotics) OF REACTION sulfamethoxazole (From Allergy Unknown Verified 06/13/20 10:13 Bactrim) tamsulosin (From Flomax) Allergy Unknown Verified 06/13/20 10:13 trimethoprim (From Bactrim) Allergy Unknown Verified 06/13/20 10:13 carvedilol AdvReac Vomiting Verified 06/13/20 10:13 Family History Mother CAD (coronary artery disease) Hypertension Brother CAD (coronary artery disease) Hypertension Other Heart disease Surgical History History of transurethral resection of prostate (04/26/20) urolift (04/28/19) Presence of coronary angioplasty implant and graft (~11/07/18) History of lobectomy of lung Social History Smoking Status: Former smoker how long ago did patient quit smokin years ago alcohol intake: never substance use type: does not use caffeine: No ROS ROS ED Constitutional Constitutional ED: Denies chills, fever(s) or weight loss Eyes Eyes: Denies change in vision or diplopia ENT ENT ED: Denies ear pain, rhinorrhea or sore throat Cardiovascular Cardiovascular: Denies chest pain, orthopnea, palpitations or racing heartbeat Respiratory/Chest Respiratory/Chest: Denies cough, dyspnea or orthopnea Gastrointestinal Gastrointestinal: Denies abdominal pain, diarrhea, nausea or vomiting Genitourinary Genitourinary ED: Denies dysuria, hematuria or urinary frequency Musculoskeletal Musculoskeletal: Reports back pain; Denies arthralgias, myalgias or neck pain Integumentary Denies abscess or rash Neurologic Neurologic: Denies headache(s) or weakness Psychiatric Psychiatric: Denies anxiety, depression, suicidal ideation or suicidal thoughts Endocrine Endocrinology: Denies polydipsia, polyphagia or polyuria Allergic/Immunologic Allergic/Immunologic ED: Denies mouth swelling, tongue swelling or urticaria EXAM Physical Exam Const Vital Signs: 12/05/23 17:06 12/05/23 19:20 12/05/23 21:06 Temperature 97.8 F Temperature Source Temporal Pulse Rate 64 78 77 Respiratory Rate 18 16 16 Respiratory Pattern Normal Blood Pressure 135/80 H 164/82 H Blood Pressure Mean 98 109 Pulse Ox 98 98 Oxygen Delivery Method Room Air Room Air Positive well nourished and well developed General Appearance ED: well developed and NAD HEENT Reports normocephalic, head/scalp atraumatic and moist mucous membranes Eyes PERRL and EOMs intact bilaterally Neck no lymphadenopathy, supple and no JVD Resp normal respiratory effort and clear to auscultation bilaterally Cardio regular rate, regular rhythm and no murmurs GI normal to inspection, nondistended, normoactive bowel sounds and non-tender Palpation: soft Back/Spine no CVA tenderness and normal ROM Back/Spine Narrative: I do not appreciate any lower rib tenderness. He is got no tenderness over the iliac crest. He points to the paraspinal musculature. There is no ecchymosis. No subcutaneous emphysema. No midline tenderness. Extremity normal to inspection General Extremety ED: Negative for edema General Extremity: Negative for edema Neuro oriented x3 and CN's II-XII intact bilaterally Sensorium / Orientation: alert Motor Exam: strength 5/5 throughout Psych mental status grossly normal Mood & Affect: Negative for depressed or tearful Skin no rashes or lesions noted and no wounds MDM MDM MDM Narrative Medical decision making narrative: Differential diagnosis would include myofascial strain pelvic and lumbar fractures rib fracture retroperitoneal hematoma anemia renal and liver injuries White count 7.1 hemoglobin 12.8 platelet count of 282. Creatinine 1.09 with BUN of 18 glucose 140 urinalysis is 10-25 white cells 1+ bacteria nitrate positive. Cultures were sent. CT abdomen pelvis demonstrates an age-indeterminate L1 compression fracture. Last imaging I see is from many years ago. He does not have midline tenderness and the pain is he describes and locates to is lower lateral lumbar. There are thickened bowel wall concerning for cystitis which would go along with his urine. He received a dose of his lactam. Family wishes to revoke hospice and admitted into the hospital so that he can be placed in rehab unit as they are unable to care for him at home. Hospice came to fill out that paperwork. I will speak with the hospitalist. History & Record Review Discussion w/independent historian: Patient and Family Additional record(s) reviewed:: Prior ED visit and Prior labs Lab Data Attestation: I reviewed the patient's lab results. Labs: Laboratory Results - last 24 hr 12/05/23 12/05/23 18:23 21:35 WBC 7.1 RBC 4.28 L Hgb 12.8 L Hct 38.0 L MCV 88.8 MCH 29.9 MCHC 33.7 RDW Std Deviation 44.0 H RDW Coeff of Ye 13.5 Plt Count 282 MPV 10.0 Immature Gran % (Auto) 0.700 Neut % (Auto) 62.3 Lymph % (Auto) 25.7 [place] % (Auto) 8.9 Eos % (Auto) 1.8 Baso % (Auto) 0.6 Absolute Neuts (auto) 4.4 Absolute Lymphs (auto) 1.82 Nucleated RBC % 0 Sodium 136 Potassium 3.8 Chloride 100 Carbon Dioxide 30.0 Anion Gap 6 BUN 18 Creatinine 1.09 Estim Creat Clear Calc 43.10 Est GFR (MDRD) Af Amer 83 Est GFR (MDRD) Non-Af 68 BUN/Creatinine Ratio 16.5 Glucose 140 H Calcium 9.0 Total Bilirubin 0.30 Direct Bilirubin 0.09 AST 20 ALT 34 Alkaline Phosphatase 98 Total Protein 6.6 Albumin 3.6 Globulin 3.0 Urine Color Yellow Urine Clarity Sl. Cloudy Urine pH 8.0 Ur Specific [place] 1.010 Urine Protein 30 H Urine Glucose (UA) Normal Urine Ketones Negative Urine Occult Blood 25 H Urine Nitrite Positive H Urine Bilirubin Negative Urine Urobilinogen Normal Ur Leukocyte Esterase 500 H Urine RBC 0-5 SEEN Urine WBC 10-25 SEEN Ur Squamous Epith Cells 0 SEEN Urine Bacteria 1+ Urine Mucus 0 SEEN Radiography Diagnostic Testing: Clinical Impression(s) from Imaging Studies Abdomen/Pelvis CT 12/05/23 19:20 IMPRESSION: (NOT LISTED IN ORDER OF SIGNIFICANCE) Cystitis. L1 age indeterminate compression deformity. This is new since the prior CT of 2015. MRI can better evaluate Other findings as above. Electronically Signed: James Jose MD at 20:32 EDT Reading Location ID and State: [facility] / [place] , Service support , Management Discussion w/another healthcare provider: Hospitalist Discharge Plan Dx/Rx/DC Orders Clinical Impression: Acute lumbar myofascial strain, COPD (chronic obstructive pulmonary disease), Cystitis, Closed compression fracture of L1 vertebra Disposition Disposition: Acute Care Hospital [facility]
[2023-12-05 18:29] LABS: Absolute Lymphocyte Count 1.82 X10^3/uL (0.83-4.51); Absolute Neutrophil Count 4.4 X10^3/uL (2.0-7.7); Basophil# 0.04 X10^3/uL; Basophil% 0.6 % (0-1); Eosinophil# 0.13 X10^3/uL; Eosinophils% 1.8 % (0-5); Hemoglobin 12.8 g/dL (13.0-16.5); Lymphocyte # 1.82 X10^3/ul (0.83-4.51); Lymphocyte % 25.7 % (19-41); Mean Corp Hgb Conc 33.7 g/dL (32-36); Mean Corpuscular Hgb 29.9 pg (27.0-32.0); Mean Corpuscular Volume 88.8 fL (80-94); Monocyte# 0.63 X10^3/uL; Monocyte% 8.9 % (0-10); NRBC Flagged by Analyzer 0 % (0-5); Neutrophil # 4.42 X10^3/uL (2.7-7.7); Neutrophil % 62.3 % (47-70); Platelet Count 282 K/mm3 (150-450); RBC Distribution Width CV 13.5 % (11.6-14.6); Red Blood Count 4.28 M/mm3 (4.6-6.2); White Blood Count 7.1 K/mm3 (4.4-11.0)
[2023-12-05 18:45] LABS: AST(SGOT) 20 U/L (15-37); Alanine Aminotransfer ALT/SGPT 34 U/L (16-61); Albumin, Serum 3.6 g/dL (3.2-5.0); Alkaline Phosphatase 98 U/L (45-117); Anion Gap 6 (5-15); BUN 18 mg/dL (7-18); BUN/Creat Ratio 16.5 RATIO (10-20); Bilirubin, Direct 0.09 mg/dL (0.00-0.30); Chloride 100 mmol/L (98-107); Creatinine, Serum 1.09 mg/dL (0.70-1.30); EST Glomerular Filtration Rate 68 mL/min (>60); Est Glom Filt Rate - Afr Amer 83 mL/min (>60); Glucose 140 mg/dL (74-106); Potassium 3.8 mmol/L (3.5-5.1); Protein, Total 6.6 g/dL (6.4-8.2); Sodium Level 136 mmol/L (136-145)
[2023-12-05 19:20] VITALS: PULSE 78; RESP 16
[2023-12-05] MEDS: Ipratropium/Albuterol Sulfate 3 ML AMPUL.NEB INHALATION (19:20)
--- NOTE | 2023-12-05 19:20 | CT_ITS ---
STUDY: CT Abdomen And Pelvis W/ Contrast Injection 12/05/2023 8:29 PM REASON FOR EXAM: Male, 83 years old. Abdominal pain right flank injury Individualized dose optimization techniques were used for this CT. COMPARISON: 12/29/2015 TECHNIQUE: CT Abdomen And Pelvis W/ Contrast Injection IV 75mL [id number] FINDINGS: There are atherosclerotic calcifications of visualized coronary arteries. The visualized portions of the heart are within normal limits. Stable hypodensities of the liver. Normal gallbladder and extrahepatic biliary system. Normal spleen. Normal pancreas. Normal bilateral adrenal glands. No acute findings of the right kidney. There are hypodensities in the left kidney. These are consistent for cysts. No follow up required. Normal visualized stomach. Normal small intestine. There are multiple colonic diverticula consistent with diverticulosis. The appendix is visualized and appears normal. There are calcifications of the abdominal aorta. This is consistent for atherosclerotic disease. There is NO abdominal aortic aneurysm. Vascular workup can be obtained based on clinical correlation. Normal inferior vena cava. Subcentimeter mesenteric lymph nodes. There is a Colvin balloon catheter in the urinary bladder. Urinary bladder wall has wall thickening. This can be related to a partially contractile state. However, a cystitis is not excluded. Urinalysis should be performed in an effort to exclude cystitis. There are prostatic calcifications. Normal abdominal wall. There are diffuse degenerative changes of the visualized lumbar spine. L1 age indeterminate compression deformity. This is new since the prior CT of 2015. CT/Abdomen/Pelvis W IV Cont ONLY IMPRESSION: (NOT LISTED IN ORDER OF SIGNIFICANCE) Cystitis. L1 age indeterminate compression deformity. This is new since the prior CT of 2015. MRI can better evaluate Other findings as above. Electronically Signed: James Jose MD at 20:32 EDT ,
[2023-12-05 21:06] VITALS: BP 164/82; PULSE 77; RESP 16; O2SAT 98
[2023-12-05] MEDS: oxyCODONE 5 MG Tablet PO (21:10)
[2023-12-05] MEDS: LORazepam 1 MG Tablet PO (21:10)
[2023-12-05 21:39] LABS: Mucous, Urine 0 SEEN /hpf (<or=2+); Squamous Epithelial Cells - UA 0 SEEN /hpf (0-5)
[2023-12-05 21:40] LABS: Color, Urine Yellow (Yellow); Glucose, Dipstick Normal (Normal); Ketone-Dipstick Negative (Negative); Leukocyte Esterase-Dipstick 500 /ul (Negative); Nitrite-Dipstick Positive (Negative); Occult Blood-Urine 25 /ul (Negative); Protein-Dipstick 30 mg/dl (Negative); Urine Bilirubin Dipstick Negative (Negative); Urine Clarity Sl. Cloudy (Clear); Urine Urobilinogen Normal (Normal)
[2023-12-05 21:49] LABS: Bacteria 1+ /hpf (None Seen)
[2023-12-05 21:52] LABS: Red Blood Cells-Urine 0-5 SEEN /hpf (0-5); White Blood Cells 10-25 SEEN /hpf (0-5)
--- NOTE | 2023-12-05 22:16 | PCM.HP.STD ---
[facility] - General General Date of Admission: 12/05/23 Date of Service: 12/05/23 Chief Complaint: Persistent Back Pain after Fall. HPI Narrative NIESHA SHUKLA, is a 83 M with a past medical history of essential hypertension, hyperlipidemia, DM-2; of unknown control, CAD; s/p multiple stents (2018), history of tobacco abuse (quit ~30 years ago); with subsequent COPD on theophylline 300 mg p.o. twice daily and followed by hospice, history of malignant neoplasm of lung (~2010); s/p bilateral upper lobectomies, BPH; s/p TURP with UroLift (2020) with chronic urinary retention and chronic Colvin, history of acute cystitis with sepsis, CKD; stage II, history of normochromic normocytic anemia, depression, generalized anxiety with panic attacks; on lorazepam 1 mg p.o. twice daily, GERD, osteoarthritis; with chronic pain syndrome on oxycodone 2.5 mg p.o. twice daily and an extensive number of listed allergies particularly to numerous antibiotic agents with unknown reactions who presents to [facility] ER complaining of persistent back pain after recent fall. Mr. Brown reports he has had 2 mechanical falls in the past 2 weeks with the last fall ~9 days ago when he fell backwards striking his right lower back against a cabinet while he has his foot up on the toilet to empty the leg bag for his Colvin. Hospice personnel then increased his pain medications to ~q. 4 hours but it was making him very sedated so they decreased his opiate and increased his dose of Tylenol but with his symptoms still uncontrolled so the family decided to bring him in for further evaluation and treatment. He describes the pain as sharp, stabbing, severe, ~9/10, focused in the Right low back/flank area which is tender to palpation and is made worse with movement and better by rest but not completely relieved. He denies loss of consciousness or significant head trauma related to his falls. Both the patient and his family deny any bruising over the area or blood in his urine but his family called hospice today because they are having difficulty taking care of him because of his pain and they were instructed to come to the ER to hopefully ascertain the source of his pain and also because he is now requiring 24/7 care and monitoring and they are not able to do so at this time. He denies associated abdominal pain, nausea, vomiting, chills, chest pain or any acute worsening of his chronic shortness of breath. In the ER he was noted to have a CT scan of the L-spine which revealed an age-indeterminate L1 Compression Fracture complicated by Intractable Back Pain attributed to Acute Myofascial Strain after recent Mechanical Fall causing subsequent Generalized Weakness with Ambulatory Dysfunction compounded by urinalysis positive for Acute Cystitis; without hematuria due to chronic Colvin and he was then admitted to the general medical floor for ongoing care for status expected to extend beyond 2 midnights. [facility] Medical History S/P coronary artery stent placement (~11/07/18) Atherosclerotic heart disease of [place] coronary artery without angina pectoris Abnormal stress test Former smoker GERD (gastroesophageal reflux disease) BPH (benign prostatic hyperplasia) History of malignant neoplasm of lung CARLIN (obstructive sleep apnea) Chronic renal failure, stage 2 (mild) Chest pain Type II diabetes mellitus COPD (chronic obstructive pulmonary disease) Anxiety disorder Home Medications ?Medication ?Instructions ?Recorded ?Last Taken ?Type theophylline 300 mg 300 mg PO DAILY breathing 11/13/15 10/10/18 09:00 History tablet,extended release,12 hr 300 mg albuterol sulfate 90 mcg/actuation 1 - 2 puff inhalation Q4H PRN PRN 08/26/17 05/08/19 Rx aerosol inhaler Sob &/Or Wheezing ##1 ipratropium 0.5 mg-albuterol 3 mg 3 ml inhalation 4X/DAY PRN PRN Sob 03/11/18 10/10/18 18:00 History (2.5 mg base)/3 mL nebulization &/Or Wheezing soln nitroglycerin 0.4 mg sublingual 0.4 mg sublingual Q5M PRN Chest 03/11/18 Unknown History tablet Pain primidone 50 mg tablet 150 mg PO TID seizures 10/27/18 05/08/19 History acetaminophen 325 mg capsule 650 mg PO Q4H PRN PRN pain/fever 04/11/19 Unknown History omeprazole 20 mg capsule,delayed 20 mg PO DAILY stomach 05/08/19 05/08/19 History release digoxin 250 mcg (0.25 mg) tablet 125 mcg PO DAILY heart 05/09/19 05/08/19 History azithromycin 250 mg tablet 250 mg PO DAILY 12/06/19 Unknown History budesonide-formoterol HFA 160 2 puff inhalation BID copd 12/06/19 Unknown History mcg-4.5 mcg/actuation aerosol inhaler furosemide 20 mg tablet 40 mg PO BID edema 12/06/19 Unknown History losartan 25 mg tablet 12.5 mg PO BID bp 12/06/19 Unknown History mirtazapine 15 mg tablet 15 mg PO QHS sleep 12/06/19 Unknown History oxycodone 5 mg tablet 5 mg PO Q6H 12/06/19 Unknown History roflumilast 500 mcg tablet 250 mcg PO BID breathing 12/06/19 Unknown History ipratropium 20 mcg-albuterol 100 1 puff inhalation DAILY 04/19/20 Unknown History mcg/actuation mist for inhalation aspirin 81 mg tablet,delayed 81 mg PO DAILY 06/13/20 Unknown History release (Adult Aspirin Regimen) guaifenesin 1,200 mg tablet, 1,200 mg PO QAM Congestion 06/13/20 Unknown History extended release 12 hr prednisone 10 mg tablet 20 mg PO DAILY 06/13/20 Unknown History finasteride 5 mg tablet 5 mg PO DAILY 12/05/23 Unknown History lorazepam 1 mg tablet 1 mg PO Q6H PRN anxiety 12/05/23 Unknown History sennosides 8.6 mg-docusate sodium 1 tab-cap PO QHS 12/05/23 Unknown History 50 mg tablet sertraline 100 mg tablet 100 mg PO DAILY 12/05/23 Unknown History Allergy/AdvReac Type Severity Reaction Status Date / Time esomeprazole Allergy Unknown NEEDS Verified 11/30/22 09:50 FOLLOW-UP gabapentin Allergy Unknown Unknown Verified 06/13/20 10:13 acetylcysteine (From Allergy Shortness Verified 06/13/20 10:13 Mucomyst) of breath alprazolam (From Xanax) Allergy breathing Verified 06/13/20 10:13 issues atorvastatin (From Lipitor) Allergy PT UNSURE Verified 06/13/20 10:13 OF REACTION belladonna alkaloids Allergy Unknown Verified 06/13/20 10:13 cephalexin Allergy Unknown Verified 06/13/20 10:13 ciprofloxacin (From Cipro) Allergy Unknown Verified 06/13/20 10:13 dicyclomine Allergy Unknown Verified 06/13/20 10:13 diltiazem Allergy Unknown Verified 06/13/20 10:13 doxycycline Allergy Shortness Verified 06/13/20 10:13 of breath ezetimibe Allergy Unknown Verified 06/13/20 10:13 fluvastatin Allergy Unknown Verified 06/13/20 10:13 metoprolol (From Toprol XL) Allergy Unknown Verified 06/13/20 10:13 nitrofurantoin Allergy Unknown Verified 06/13/20 10:13 phenobarbital Allergy Unknown Verified 06/13/20 10:13 prochlorperazine (From Allergy Unknown Verified 06/13/20 10:13 Compazine) promethazine Allergy PT UNSURE Verified 06/13/20 10:13 OF REACTION simvastatin (From Zocor) Allergy Unknown Verified 06/13/20 10:13 Mmmhdtd-KEL-XuD Reductase Allergy Unknown Verified 06/13/20 10:13 Inhibitor (Tjenuwl-Dkv-Icq Reductase Inhibitor) Sulfa (Sulfonamide Allergy PT UNSURE Verified 06/13/20 10:13 Antibiotics) OF REACTION sulfamethoxazole (From Allergy Unknown Verified 06/13/20 10:13 Bactrim) tamsulosin (From Flomax) Allergy Unknown Verified 06/13/20 10:13 trimethoprim (From Bactrim) Allergy Unknown Verified 06/13/20 10:13 carvedilol AdvReac Vomiting Verified 06/13/20 10:13 Family History Mother CAD (coronary artery disease) Hypertension Brother CAD (coronary artery disease) Hypertension Other Heart disease Surgical History History of transurethral resection of prostate (04/26/20) urolift (04/28/19) Presence of coronary angioplasty implant and graft (~11/07/18) History of lobectomy of lung Social History Smoking Status: Former smoker how long ago did patient quit smokin years ago alcohol intake: never substance use type: does not use caffeine: No ROS ROS Narrative Review of systems: General: Patient denies fever or chills. HENT: Denies headache, denies stuffy nose, denies sore throat EYES: Denies changes in vision or discharge from eyes Resp: Denies cough, denies shortness of breath Cardiac: Denies chest pain, palpitations or heart racing. GI: Denies abdominal pain, denies changes in bowel, denies nausea or vomiting. : Denies changes in urination Extremity: Denies swelling Musculoskeletal: Feels somewhat generally weak and unwell with Right-sided low back pain as per HPI. Neuro: Patient denies headache, paresthesias or focal neurologic deficits Heme: Denies any bleeding or bruising Skin: Denies rashes Psychiatric: No complaints voiced related to uncontrolled depression or anxiety. Endocrine: No polyuria, polydipsia or polyphagia. The rest of the 14 point ROS was negative except for positives in HPI. Vital Signs Vital Signs Vital Signs: 12/05/23 17:06 12/05/23 19:20 12/05/23 21:06 Temperature 97.8 F Temperature Source Temporal Pulse Rate 64 78 77 Respiratory Rate 18 16 16 Respiratory Pattern Normal Blood Pressure 135/80 H 164/82 H Blood Pressure Mean 98 109 Pulse Ox 98 98 Oxygen Delivery Method Room Air Room Air Weight Weight: 141 lb 3.2 oz Body Mass Index (BMI) 23.5 Physical Exam Const alert, oriented x3 and average body habitus Constitutional Narrative: Mild distress noted with chronically ill appearance. General Appearance: cooperative HEENT normocephalic, head/scalp atraumatic, hearing grossly normal bilaterally and moist oral mucous membranes Eyes PERRL and EOMs intact bilaterally Neck no lymphadenopathy and supple Resp normal respiratory effort, no retractions, no use of accessory muscles and clear to auscultation bilaterally Cardio regular rate and regular rhythm GI normal to inspection, nondistended, normoactive bowel sounds, soft to palpation, non-tender and non-distended Extremity normal to inspection, full ROM and no clubbing, cyanosis or edema Skin Skin Narrative: Patient has no evidence of bruising or wound over right low back. He also has no evidence of rash, abscess or jaundice. Neuro oriented x3, CN's II-XII intact bilaterally, moves all extremities and no focal motor deficits Sensorium / Orientation: awake, alert, oriented to person, oriented to place and oriented to time Speech: speech normal Psych affect normal Results Medical Records Data Attestation: I reviewed the patient's medical records Lab / Micro Data Attestation: I reviewed the patient's lab results. 12/05/23 18:23 12/05/23 18:23 Labs: Laboratory Results - last 24 hr 12/05/23 18:23: WBC 7.1, RBC 4.28 L, Hgb 12.8 L, Hct 38.0 L, MCV 88.8, MCH 29.9, MCHC 33.7, RDW Std Deviation 44.0 H, RDW Coeff of Ye 13.5, Plt Count 282, MPV 10.0, Immature Gran % (Auto) 0.700, Neut % (Auto) 62.3, Lymph % (Auto) 25.7, [place] % (Auto) 8.9, Eos % (Auto) 1.8, Baso % (Auto) 0.6, Absolute Neuts (auto) 4.4, Absolute Lymphs (auto) 1.82, Nucleated RBC % 0, Sodium 136, Potassium 3.8, Chloride 100, Carbon Dioxide 30.0, Anion Gap 6, BUN 18, Creatinine 1.09, Estim Creat Clear Calc 43.10, Est GFR (MDRD) Af Amer 83, Est GFR (MDRD) Non-Af 68, BUN/Creatinine Ratio 16.5, Glucose 140 H, Calcium 9.0, Total Bilirubin 0.30, Direct Bilirubin 0.09, AST 20, ALT 34, Alkaline Phosphatase 98, Total Protein 6.6, Albumin 3.6, Globulin 3.0 12/05/23 21:35: Urine Color Yellow, Urine Clarity Sl. Cloudy, Urine pH 8.0, Ur Specific [place] 1.010, Urine Protein 30 H, Urine Glucose (UA) Normal, Urine Ketones Negative, Urine Occult Blood 25 H, Urine Nitrite Positive H, Urine Bilirubin Negative, Urine Urobilinogen Normal, Ur Leukocyte Esterase 500 H, Urine RBC 0-5 SEEN, Urine WBC 10-25 SEEN, Ur Squamous Epith Cells 0 SEEN, Urine Bacteria 1+, Urine Mucus 0 SEEN Imaging Radiology Impression Abdomen/Pelvis CT 12/05/23 19:20 IMPRESSION: (NOT LISTED IN ORDER OF SIGNIFICANCE) Cystitis. L1 age indeterminate compression deformity. This is new since the prior CT of 2016. MRI can better evaluate Other findings as above. Electronically Signed: James Jose MD at 20:32 EDT , Assessment & Plan Assessment/Plan (1) Closed compression fracture of L1 vertebra: QUALIFIERS: Encounter type: initial encounter Qualified Code(s): S32.010A - Wedge compression fracture of first lumbar vertebra, initial encounter for closed fracture (2) Acute lumbar myofascial strain: QUALIFIERS: Encounter type: initial encounter Qualified Code(s): S39.012A - Strain of muscle, fascia and tendon of lower back, initial encounter (3) Intractable low back pain: (4) Fall: QUALIFIERS: Encounter type: initial encounter Qualified Code(s): W19.XXXA - Unspecified fall, initial encounter (5) UTI (urinary tract infection) due to urinary indwelling Colvin catheter: QUALIFIERS: Encounter type: initial encounter Indwelling urinary catheter type: indwelling urethral catheter Qualified Code(s): T83.511A - Infection and inflammatory reaction due to indwelling urethral catheter, initial encounter; N39.0 - Urinary tract infection, site not specified (6) Acute cystitis without hematuria: (7) Generalized weakness: (8) Ambulatory dysfunction: (9) COPD (chronic obstructive pulmonary disease): QUALIFIERS: COPD type: unspecified COPD Qualified Code(s): J44.9 - Chronic obstructive pulmonary disease, unspecified PLAN: Plan 1. CT scan of the L-spine which revealed an age-indeterminate L1 compression fracture after 2 recent Mechanical Falls - Admit to general medical floor. Place Lidoderm patch over Right-side of low back 12h/day. Give Tylenol prn for mild (level 1-3/10) pain or fever. Give [place] prn for moderate (4-6/10) pain. Give Morphine IV prn for severe (level 6-10/10) pain. Finally, we will check MRI of the lumbar spine to establish acuity of L1 compression fracture to see if patient would be candidate for possible kyphoplasty. 2. Intractable Low Back Pain due to Acute Lumbar Myofascial Strain causing #1 in the setting of previously diagnosed osteoarthritis; with chronic pain syndrome on oxycodone 2.5 mg p.o. twice daily - We will consult PT/OT and Case Management to see this patient his admission with help appreciated in advance. Continue pain regimen outlined above. 3. Acute Cystitis; without hematuria due to chronic Colvin complicating #1 & #2 in the setting of known BPH; s/p TURP with UroLift (2020) with chronic urinary retention and chronic Colvin - Continue IV Azactam begun in the ER given his extensive list of allergies and await culture and sensitivity data. 4. History of tobacco abuse (quit ~30 years ago); with subsequent COPD on theophylline 300 mg p.o. twice daily and followed by hospice until this admission because he now wants rehabilitation compounding #1 - #3 - Noted. Continue home medications as previous with scheduled inhalers and as needed nebulizers. 5. History of malignant neoplasm of lung (~2010); s/p bilateral upper lobectomies - Noted. 6. Essential hypertension - Continue home regimen as previous. 7. Hyperlipidemia - Apparently stable with patient not on any antihyperlipidemic agents at this time. 8. DM-2; of unknown control - ADA diet. FSBS q. AC/HS plus SSI. Check HgbA1c to objectively assess quality of diabetic cintrol. 9. CAD; s/p multiple stents (2018) - Resume daily BASA as previous. 10. History of acute cystitis with sepsis - Noted. 11. CKD; stage II - Stable at this time. 12. History of normochromic normocytic anemia - Stable with hemoglobin of 12.8 g/dL present on admission. 13. Generalized anxiety with panic attacks; on lorazepam 1 mg p.o. twice daily - Current treatment regimen to be continued. 14. GERD - Resume PPI. 15. DVT prophylaxis - Lovenox 40 mg sq daily plus SCD's. Total time: Approximately 55 minutes. Charges/Coding Visit Charges Inpatient E&M: 88212 Init Hosp L2
[2023-12-05] MEDS: Aztreonam 2 GM in 0.9% Normal Saline (100mL MB+) 100 ML IV (23:27)
[2023-12-06] VITALS (15 sets, daily range): BP systolic 121–162; BP diastolic 66–94; PULSE 66–92; RESP 12–18; TEMP 35.8–36.8; O2SAT 93–98; BMI 20.2
[2023-12-06] MEDS: 0.9% Normal Saline (1000mL) 1,000 ML 50 ML IV ×2 (00:50→21:42)
[2023-12-06] MEDS: Morphine 2 MG/ML Syringe IV (00:51)
[2023-12-06] MEDS: Ipratropium/Albuterol Sulfate 3 ML AMPUL.NEB INHALATION ×5 (01:36→23:54)
[2023-12-06 06:26] LABS: Bedside Glucose 150 mg/dL (74-106)
[2023-12-06 06:36] LABS: Absolute Lymphocyte Count 1.95 X10^3/uL (0.83-4.51); Absolute Neutrophil Count 5.2 X10^3/uL (2.0-7.7); Basophil# 0.07 X10^3/uL; Basophil% 0.9 % (0-1); Eosinophil# 0.26 X10^3/uL; Eosinophils% 3.2 % (0-5); Hematocrit 37.7 % (40-54); Hemoglobin 12.3 g/dL (13.0-16.5); Lymphocyte # 1.95 X10^3/ul (0.83-4.51); Lymphocyte % 23.7 % (19-41); Mean Corp Hgb Conc 32.6 g/dL (32-36); Mean Corpuscular Hgb 29.2 pg (27.0-32.0); Mean Corpuscular Volume 89.5 fL (80-94); Mean Platelet Vol. 10.6 fl (6.2-12.0); Monocyte# 0.69 X10^3/uL; Monocyte% 8.4 % (0-10); NRBC Flagged by Analyzer 0 % (0-5); Neutrophil # 5.17 X10^3/uL (2.7-7.7); Neutrophil % 62.7 % (47-70); Platelet Count 284 K/mm3 (150-450); RBC Distribution Width CV 13.6 % (11.6-14.6); RBC Distribution Width SD 44.6 fl (35.1-43.9); Red Blood Count 4.21 M/mm3 (4.6-6.2); White Blood Count 8.2 K/mm3 (4.4-11.0)
[2023-12-06] MEDS: Albuterol 2.5 MG/3 ML VIAL.NEB. INHALATION (06:43)
[2023-12-06 07:12] LABS: Digoxin Level 1.09 ng/mL (0.80-2.00)
[2023-12-06 07:19] LABS: ALB/GLOB Ratio 1.3 RATIO (0.9-2.4); AST(SGOT) 25 U/L (15-37); Alanine Aminotransfer ALT/SGPT 34 U/L (16-61); Albumin, Serum 3.3 g/dL (3.2-5.0); Alkaline Phosphatase 90 U/L (45-117); Anion Gap 5 (5-15); BUN 16 mg/dL (7-18); BUN/Creat Ratio 16.9 RATIO (10-20); Calcium,Total 8.6 mg/dL (8.5-10.1); Chloride 104 mmol/L (98-107); Creatinine, Serum 0.95 mg/dL (0.70-1.30); EST Glomerular Filtration Rate 80 mL/min (>60); Est Glom Filt Rate - Afr Amer 97 mL/min (>60); Estimated Creatinine Clearance 45.91 ml/min; Globulin 2.6 g/dL (2.2-4.2); Glucose 130 mg/dL (74-106); Magnesium 2.5 mg/dL (1.6-2.6); Potassium 3.8 mmol/L (3.5-5.1); Protein, Total 5.9 g/dL (6.4-8.2); Sodium Level 138 mmol/L (136-145)
[2023-12-06 07:44] LABS: Hemoglobin A1c 6.8 % (3.8-5.6)
[2023-12-06] MEDS: Lactobacillis Acidophilus 1 CAP PO ×4 (07:45→21:43)
[2023-12-06] MEDS: Losartan Potassium 25 MG Tablet 12.5 MG PO ×2 (07:45→21:43)
[2023-12-06] MEDS: Primidone 50 MG Tablet 150 MG PO ×3 (07:45→17:20)
[2023-12-06] MEDS: Furosemide 40 MG Tablet PO ×2 (07:46→17:21)
[2023-12-06] MEDS: Sertraline 100 MG Tablet PO (07:46)
[2023-12-06] MEDS: Digoxin 125 MCG Tablet PO (07:47)
[2023-12-06] MEDS: Finasteride 5 MG Tablet PO (07:47)
[2023-12-06] MEDS: guaiFENesin 1,200 MG Tablet 1200 MG PO (07:47)
[2023-12-06] MEDS: Aspirin E.C. 81 MG Tablet PO (07:47)
[2023-12-06] MEDS: predniSONE 20 MG Tablet PO (07:47)
[2023-12-06] MEDS: Pantoprazole Sodium 20 MG Tablet PO (07:48)
[2023-12-06] MEDS: Enoxaparin 40 MG/0.4 ML Syringe SC (07:48)
[2023-12-06] MEDS: Acetaminophen 325 MG Tablet 650 MG PO (07:50)
[2023-12-06] MEDS: oxyCODONE 5 MG Tablet PO (07:50)
[2023-12-06] MEDS: Lidocaine 5% Patch 2 PATCH TOPICAL (07:51)
--- NOTE | 2023-12-06 09:18 | PCM.PN.HOSP ---
Reason for Visit Reason for Visit: Diagnoses Chronic obstructive pulmonary disease, unspecified (12/05/23) Other low back pain (12/05/23) Acute cystitis without hematuria (12/05/23) Urinary tract infection, site not specified (12/05/23) Difficulty in walking, not elsewhere classified (12/05/23) Weakness (12/05/23) Wedge compression fracture of first lumbar vertebra, initial encounter for closed fracture (12/05/23) Strain of muscle, fascia and tendon of lower back, initial encounter (12/05/23) Infection and inflammatory reaction due to indwelling urethral catheter, initial encounter (12/05/23) Unspecified fall, initial encounter (12/05/23) Subjective Subjective Patient was seen and examined today, he does complain about back pain this morning, I have elected to increase the patient's pain medication and place him on IV Decadron. Patient is also on antibiotics presently-he has a chronic indwelling Colvin and is my opinion that patient may not have a urinary tract infection. I asked the nurse taking care of him to ask about Macrodantin which she has listed as an allergy, if the patient does not remember anything concrete, I will switch the patient to Macrodantin. I stopped Azactam this morning. Objective Data Objective Data Vital Signs: Vital Signs Temp Pulse Resp BP Pulse Ox O2 Del Method O2 Flow Rate 97.9 F 85 16 139/94 H 98 Room Air 2 12/06/23 08:43 12/06/23 08:43 12/06/23 08:43 12/06/23 08:43 12/06/23 08:43 12/06/23 08:43 12/06/23 08:43 Oxygen Flow Rate (L/min) 2 Oxygen Delivery Method Room Air Weight: 57.1 kg Body Mass Index (BMI) 20.2 Intake & Output: Intake and Output for Last 24 Hours 12/04/23 12/05/23 12/06/23 23:59 23:59 23:59 Intake Total 475 / 475 Output Total 300 / 300 Balance 175 / 175 Lab / Micro Data 12/06/23 06:00 12/06/23 06:00 Labs: Laboratory Results - last 24 hr 12/05/23 18:23: WBC 7.1, RBC 4.28 L, Hgb 12.8 L, Hct 38.0 L, MCV 88.8, MCH 29.9, MCHC 33.7, RDW Std Deviation 44.0 H, RDW Coeff of Ye 13.5, Plt Count 282, MPV 10.0, Immature Gran % (Auto) 0.700, Neut % (Auto) 62.3, Lymph % (Auto) 25.7, [place] % (Auto) 8.9, Eos % (Auto) 1.8, Baso % (Auto) 0.6, Absolute Neuts (auto) 4.4, Absolute Lymphs (auto) 1.82, Nucleated RBC % 0, Sodium 136, Potassium 3.8, Chloride 100, Carbon Dioxide 30.0, Anion Gap 6, BUN 18, Creatinine 1.09, Estim Creat Clear Calc 43.10, Est GFR (MDRD) Af Amer 83, Est GFR (MDRD) Non-Af 68, BUN/Creatinine Ratio 16.5, Glucose 140 H, Calcium 9.0, Total Bilirubin 0.30, Direct Bilirubin 0.09, AST 20, ALT 34, Alkaline Phosphatase 98, Total Protein 6.6, Albumin 3.6, Globulin 3.0 12/05/23 21:35: Urine Color Yellow, Urine Clarity Sl. Cloudy, Urine pH 8.0, Ur Specific [place] 1.010, Urine Protein 30 H, Urine Glucose (UA) Normal, Urine Ketones Negative, Urine Occult Blood 25 H, Urine Nitrite Positive H, Urine Bilirubin Negative, Urine Urobilinogen Normal, Ur Leukocyte Esterase 500 H, Urine RBC 0-5 SEEN, Urine WBC 10-25 SEEN, Ur Squamous Epith Cells 0 SEEN, Urine Bacteria 1+, Urine Mucus 0 SEEN 12/06/23 06:00: WBC 8.2, RBC 4.21 L, Hgb 12.3 L, Hct 37.7 L, MCV 89.5, MCH 29.2, MCHC 32.6, RDW Std Deviation 44.6 H, RDW Coeff of Ye 13.6, Plt Count 284, MPV 10.6, Immature Gran % (Auto) 1.100 H, Neut % (Auto) 62.7, Lymph % (Auto) 23.7, [place] % (Auto) 8.4, Eos % (Auto) 3.2, Baso % (Auto) 0.9, Absolute Neuts (auto) 5.2, Absolute Lymphs (auto) 1.95, Nucleated RBC % 0, Sodium 138, Potassium 3.8, Chloride 104, Carbon Dioxide 29.0, Anion Gap 5, BUN 16, Creatinine 0.95, Estim Creat Clear Calc 45.91, Est GFR (MDRD) Af Amer 97, Est GFR (MDRD) Non-Af 80, BUN/Creatinine Ratio 16.9, Glucose 130 H, Hemoglobin A1c 6.8 H, Calcium 8.6, Phosphorus 2.0 L, Magnesium 2.5, Total Bilirubin 0.30, AST 25, ALT 34, Alkaline Phosphatase 90, Total Protein 5.9 L, Albumin 3.3, Globulin 2.6, Albumin/Globulin Ratio 1.3, TSH 3.730, Digoxin 1.09, Theophylline Cancelled 12/06/23 06:07: POC Glucose 150 H Radiography Diagnostic Testing: Radiology Impression Abdomen/Pelvis CT 12/05/23 19:20 IMPRESSION: (NOT LISTED IN ORDER OF SIGNIFICANCE) Cystitis. L1 age indeterminate compression deformity. This is new since the prior CT of 2015. MRI can better evaluate Other findings as above. Electronically Signed: James Jose MD at 20:32 EDT Reading Location ID and State: [facility] / [place] , Service support , Physical Exam Const alert, oriented x3 and no apparent distress Constitutional Narrative: Patient appears frail General Appearance: cooperative, well kempt and well developed Orientation / Consciousness: awake, oriented to person, oriented to place and oriented to time HEENT normocephalic, head/scalp atraumatic and moist oral mucous membranes Eyes PERRL, EOMs intact bilaterally and conjunctivae normal Neck supple, no JVD, thyroid normal and no carotid bruits General: trachea midline Resp normal respiratory effort, no retractions, no use of accessory muscles and clear to auscultation bilaterally Auscultation: Negative for rales, rhonchi or wheezes Cardio regular rate, regular rhythm, S1 normal heart sound, S2 normal heart sound, no murmurs, no rub and no gallops GI normal to inspection, nondistended, normoactive bowel sounds, soft to palpation, non-tender and non-distended Extremity no clubbing, cyanosis or edema Skin no rashes or lesions noted General Skin Exam: no breakdown Neuro oriented x3, CN's II-XII intact bilaterally, moves all extremities, no focal motor deficits and no sensory deficits noted Sensorium / Orientation: awake and alert Speech: speech normal Psych affect normal Assessment & Plan Assessment/Plan (1) Intractable low back pain: PLAN: Plan 1. Intractable back pain-probably secondary to L1 compression fracture-patient will have an MRI tomorrow, he will need to be seen by pain management for possible kyphoplasty #2 bacteriuria with pyuria-again I am doubtful the patient has a serious urinary tract infection, for now I will place him on Macrodantin-he told nursing he could not remember being allergic to that, she also asked him about other allergies and he denied other allergies. This is odd being that there are probably 20 allergies listed on his med list. #3 chronic obstructive pulmonary disease-patient is currently on oxygen and aerosol treatments, I will discontinue the patient's theophylline-my opinion is it is of minimal benefit. #4 chronic hypoxic respiratory failure-patient is currently on 2 L of oxygen #5 coronary artery disease-stable at this time Total clinical time spent by myself addressing the patient's medical issues, reviewing all of his data, and collaborating with patient's care team: 35 minutes Charges/Coding Visit Charges Inpatient E&M: 95272 Subs Hosp L2
[2023-12-06] MEDS: Glucerna Shake 120 ML LIQUID PO (09:23)
--- NOTE | 2023-12-06 10:00 | MRI_ITS ---
STUDY: MRI LUMBAR SPINE WITH AND WITHOUT CONTRAST REASON FOR EXAM: Male, 83 years old. Suspected subacute L1 compression fracture on CT. History of lung carcinoma. Back pain. TECHNIQUE: Standardized fat and water weighted pulse sequences were obtained in the sagittal and axial planes. 13 mL of IV Clariscan was administered for the contrast portion of the examination. COMPARISON: CT abdomen and pelvis with IV contrast 04/24/2023. FINDINGS: T10-T11: (Sagittal only). Normal endplates. Normal disc height and morphology. No ventral extradural defect. Normal central canal and bilateral intervertebral neuroforamina. T11-T12: (Sagittal only). Normal endplates. Mild disc space height narrowing. No ventral extradural defect. Normal central canal and bilateral intervertebral neuroforamina. Small perineural cyst in the right intervertebral neuroforamen. T12-L1: Normal T12 inferior endplate. Mild recent fracture across the upper L1 vertebral body with vertebral marrow edema extending to both L1 pedicles. This is nonpathologic fracture. Increased central disc space height. No ventral extradural defect. Normal facet joints. Normal central canal and bilateral lateral recesses. Normal bilateral intervertebral neuroforamina. Normal lumbar lordosis. There is no substantial scoliosis. Normal conus medullaris that terminates at the mid L1 vertebral body level. L1-2: Normal endplates. Normal disc height, hydration and morphology. Normal bilateral facet joints. Normal central canal and bilateral lateral recesses. Normal bilateral intervertebral neural foramina. L2-3: Normal endplates. Mild disc space height narrowing. Prominent ventral extradural defect due to posterior bulging annulus. Normal facet joints. Normal central canal and bilateral lateral recesses. Normal bilateral intervertebral neuroforamina. L3-4: Normal endplates. Minimal disc space height narrowing. Mild ventral extradural defect due to posterior bulging annulus. Normal facet joints. Mild dorsal epidural lipomatosis. Mild central canal stenosis with an apical diameter 10 mm. Normal bilateral lateral recesses. Mild stenosis of the bilateral intervertebral neuroforamina. L4-5: Normal endplates. Moderate disc space height narrowing. Left posterior ligamentum flavum hypertrophy. Mild asymmetric degenerative facet arthropathy. Normal central canal and bilateral lateral recesses. Moderate stenosis of the left intervertebral neuroforamen due to pronounced left-sided disc space height narrowing with left-sided posterior bulging annulus touching the undersurface of the left L4 nerve. Moderate stenosis of the right intervertebral neuroforamen due to disc space height narrowing and posterior bulging annulus but no impingement of the right L4 nerve which is surrounded by perineural fat. L5-S1: Normal endplates. Moderate posterior disc space height narrowing. Normal facet joints. Normal central canal and bilateral lateral recesses. Mild stenosis of the bilateral intervertebral neuroforamina. Normal visualized sacral ala. Normal visualized paraspinous soft tissue structures. Following IV contrast administration, there is contrast enhancement of the vertebral body are edema surrounding the fracture line across the upper L1 vertebral body and the bone edema in the L1 pedicles. There are no abnormally enhancing lesions intradurally and extradurally. MRI/Spine Lumbar W/WO Contrast IMPRESSION: 1. Enhancing recent traumatic fracture across the upper L1 vertebral body extending to both L1 pedicles. This is nonpathologic fracture. If patient has debilitating back pain referrable to this site, this is feasible for kyphoplasty. 2. No MRI evidence of lumbar extruded disc fragment. 3. Moderate stenosis of the left L4-L5 intervertebral neuroforamen due to pronounced disc space height narrowing and left posterior bulging annulus touching the undersurface of the left L4 nerve. Advise clinical correlation if there are symptoms of left L4 nerve radiculopathy particularly upon weightbearing. Electronically Signed: Lex Garcia MD at 12:13 EDT ,
[2023-12-06] MEDS: dexAMETHasone 4 MG/ML Vial IV ×2 (11:30→17:20)
[2023-12-06] MEDS: Ensure Plus High Protein 120 ML LIQUID PO ×2 (11:30→17:19)
[2023-12-06] MEDS: Morphine 4 MG/ML Syringe IV (11:37)
[2023-12-06] MEDS: oxyCODONE 5 MG Tablet 10 MG PO (13:38)
--- NOTE | 2023-12-06 13:41 | PCM.HOSP.N ---
Hospitalist Note I talked to the patient and his daughter Cielo today, patient has an L1 compression fracture that appears to be recent, I talked to the patient briefly about perhaps having a kyphoplasty done, I went over it briefly with him and I called Dr. Herman to see the patient tomorrow and let the daughter know that he would be seen by Dr. Herman. I will obtain an echocardiogram for surgical clearance. Patient has been on hospice for a few years due to COPD.
[2023-12-06] MEDS: Nitrofurantoin Macrocrystals 100 MG Capsule PO (17:19)
[2023-12-06] MEDS: Senna/Docusate Sodium 1 Tablet PO (21:42)
[2023-12-06] MEDS: Mirtazapine 15 MG Tablet PO (21:43)
[2023-12-06] MEDS: LORazepam 1 MG Tablet PO (21:51)
[2023-12-07] VITALS (12 sets, daily range): BP systolic 103–126; BP diastolic 52–73; PULSE 73–95; RESP 16–20; TEMP 36.5–37.3; O2SAT 95–98; BMI 20.6
[2023-12-07] MEDS: 0.9% Saline Lock 10 ML Syringe IV (00:17)
[2023-12-07] MEDS: dexAMETHasone 4 MG/ML Vial IV ×5 (00:17→23:48)
[2023-12-07] MEDS: Ipratropium/Albuterol Sulfate 3 ML AMPUL.NEB INHALATION ×6 (03:52→22:28)
--- NOTE | 2023-12-07 06:00 | ECHOD_ITS ---
Reason For Study: Pre Op- back surgery Procedure This was a 2D Doppler, Color Flow transthoracic echocardiogram. Technically difficult study, limited views were obtained due to poor acoustic windows. Patient scanned supine and slightly elevated from back injury. All images obtained in subcostal window. Exam performed portable in patient room. Left Ventricle Normal LV size. Mild concentric left ventricular hypertrophy. Left ventricular systolic function is normal. The left ventricular ejection fraction is 60 %. No regional wall motion abnormalities noted. Right Ventricle Normal RV size. Normal systolic function. Tricuspid Valve Normal tricuspid valve. Mild (1+) tricuspid valve insufficiency. Pulmonary artery systolic pressure is 37 mmHg. Great Vessels Normal aortic root. Pericardium/Pleural Small pericardial effusion. MMode/2D Measurements & Calculations LVIDd: 3.0 cm IVSd: 1.2 cm LA dimension: 3.4 cm LVIDs: 2.1 cm LVPWd: 1.2 cm FS: 29.8 % Doppler Measurements & Calculations PA V2 max: 113.4 cm/sec TR max dahiana: 287.1 cm/sec PA max PG (full): 0.51 mmHg TR max P.0 mmHg ECHO/Echo Complete Interpretation Summary Normal LV size. Left ventricular systolic function is normal. The left ventricular ejection fraction is 60 %. Mild concentric left ventricular hypertrophy. Small pericardial effusion. Ordering Physician: Ellis Sánchez Performed By: Sammy Patel RCS
[2023-12-07] MEDS: Ensure Plus High Protein 120 ML LIQUID PO ×3 (08:10→17:22)
[2023-12-07] MEDS: Aspirin E.C. 81 MG Tablet PO (08:11)
[2023-12-07] MEDS: Nitrofurantoin Macrocrystals 100 MG Capsule PO ×2 (08:11→17:19)
[2023-12-07] MEDS: Primidone 50 MG Tablet 150 MG PO ×3 (08:12→17:16)
--- NOTE | 2023-12-07 09:00 | PCM.CONS.GEN ---
Assessment & Plan Assessment/Plan (1) Intractable low back pain: (2) Closed compression fracture of L1 vertebra: QUALIFIERS: Encounter type: initial encounter Qualified Code(s): S32.010A - Wedge compression fracture of first lumbar vertebra, initial encounter for closed fracture PLAN: Plan Mr. Shukla was admitted for severe intractable back pain. MRI demonstrated recent L1 traumatic fracture in setting of recent fall. He has been started on IV steroids, p.r.n. 10 mg oxycodone and Tylenol. As of today his pain has significantly improved. He still has some right lower lumbar tenderness. He was able to stand without significant pain while I was in the room. He does however note that he has not undergone any physical therapy and in his not ambulated much since his arrival here. I encouraged him and spoke to nursing about getting him up and out of bed and moving more. I would like to see how his pain reacts according to this. It is likely that the steroid is benefitting him tremendously. I discussed at great length with the patient as well as his family the risks and benefits relating to kyphoplasty. I discussed conservative treatment options as well as procedural options. Of note he has COPD and is on room oxygen and needs regular treatments. We discussed the relative risks associated with anesthesia as well as the above procedure. He is at increased risk for respiratory complications in regards to anesthesia should kyphoplasty be performed. Given his significant improvement at this time, I will evaluate him once again tomorrow after he has ambulated and moved more to reassess the possibility for intervention. He is being treated for UTI, but this may be a colonization. Furthermore he is being treated with antibiotics now, so infection risks would be minimal. He will need placement after dispo due to debility. He will consider L1 kyphoplasty He is to continue steroid, PRN oxycodone and tylenol multimodal treatments. Of note he has allergy to cephalexin as well. HPI Consult Data Date of Consult: 12/07/23 HPI Narrative Reason for Consultation: Kyphoplasty consideration HPI Narrative: NIESHA SUHKLA, is a 83 M who presents with a recent history of back pain after a recent fall. The pain was severe to the point that he was having further difficulty with ADLs. he has baseline COPD and has significant funcitonal limitations due to this. He ended up in the ED and was admitted for evaluation. I am being consulted for back pain and kyphoplasty consideration. He has pmh of COPD (on hospice for years for this) on , ckd, CARLIN, GERD, CAD s/p angioplasty and T2DM. Has indwelling urinary catheter, but per primary team it appears not likely to be infectious cystitis, so abx to be de-escalated. Lumbar MRI demonstrated recent L1 vertebral fracture that was traumatic in nature and feasible for kyphoplasty. Dr. Sánchez has ordered an echo for preoperative clearance. Being treated with IV steroid, tylenol and prn oxycodone in hospital. He was taking oxycodone 5mg at home, but this was causing some sleepiness. tolerating the medication in hospital well. As of today he has had significant improvement in his pain. [facility] Medical History (Updated 12/06/23 @ 09:[address] Ellis Sánchez, DO) S/P coronary artery stent placement (~11/07/18) Atherosclerotic heart disease of [place] coronary artery without angina pectoris Abnormal stress test Former smoker GERD (gastroesophageal reflux disease) BPH (benign prostatic hyperplasia) History of malignant neoplasm of lung CARLIN (obstructive sleep apnea) Chronic renal failure, stage 2 (mild) Chest pain COPD (chronic obstructive pulmonary disease) Anxiety disorder Home Medications ?Medication ?Instructions ?Recorded ?Last Taken ?Type theophylline 300 mg 300 mg PO DAILY breathing 11/13/15 10/10/18 09:00 History tablet,extended release,12 hr 300 mg albuterol sulfate 90 mcg/actuation 1 - 2 puff inhalation Q4H PRN PRN 08/26/17 05/08/19 Rx aerosol inhaler Sob &/Or Wheezing ##1 ipratropium 0.5 mg-albuterol 3 mg 3 ml inhalation 4X/DAY PRN PRN Sob 03/11/18 10/10/18 18:00 History (2.5 mg base)/3 mL nebulization &/Or Wheezing soln nitroglycerin 0.4 mg sublingual 0.4 mg sublingual Q5M PRN Chest 03/11/18 Unknown History tablet Pain primidone 50 mg tablet 150 mg PO TID seizures 10/27/18 05/08/19 History acetaminophen 325 mg capsule 650 mg PO Q4H PRN PRN pain/fever 04/11/19 Unknown History omeprazole 20 mg capsule,delayed 20 mg PO DAILY stomach 05/08/19 05/08/19 History release digoxin 250 mcg (0.25 mg) tablet 125 mcg PO DAILY heart 05/09/19 05/08/19 History azithromycin 250 mg tablet 250 mg PO DAILY 12/06/19 Unknown History budesonide-formoterol HFA 160 2 puff inhalation BID copd 12/06/19 Unknown History mcg-4.5 mcg/actuation aerosol inhaler furosemide 20 mg tablet 40 mg PO BID edema 12/06/19 Unknown History losartan 25 mg tablet 12.5 mg PO BID bp 12/06/19 Unknown History mirtazapine 15 mg tablet 15 mg PO QHS sleep 12/06/19 Unknown History oxycodone 5 mg tablet 5 mg PO Q6H 12/06/19 Unknown History ipratropium 20 mcg-albuterol 100 1 puff inhalation DAILY 04/19/20 Unknown History mcg/actuation mist for inhalation aspirin 81 mg tablet,delayed 81 mg PO DAILY 06/13/20 Unknown History release (Adult Aspirin Regimen) guaifenesin 1,200 mg tablet, 1,200 mg PO QAM Congestion 06/13/20 Unknown History extended release 12 hr prednisone 10 mg tablet 20 mg PO DAILY 06/13/20 Unknown History finasteride 5 mg tablet 5 mg PO DAILY 12/05/23 Unknown History lorazepam 1 mg tablet 1 mg PO Q6H PRN anxiety 12/05/23 Unknown History sennosides 8.6 mg-docusate sodium 1 tab-cap PO QHS 12/05/23 Unknown History 50 mg tablet sertraline 100 mg tablet 100 mg PO DAILY 12/05/23 Unknown History Allergy/AdvReac Type Severity Reaction Status Date / Time esomeprazole Allergy Unknown NEEDS Verified 11/30/22 09:50 FOLLOW-UP gabapentin Allergy Unknown Unknown Verified 06/13/20 10:13 acetylcysteine (From Allergy Shortness Verified 06/13/20 10:13 Mucomyst) of breath alprazolam (From Xanax) Allergy breathing Verified 06/13/20 10:13 issues atorvastatin (From Lipitor) Allergy PT UNSURE Verified 06/13/20 10:13 OF REACTION belladonna alkaloids Allergy Unknown Verified 06/13/20 10:13 cephalexin Allergy Unknown Verified 06/13/20 10:13 ciprofloxacin (From Cipro) Allergy Unknown Verified 06/13/20 10:13 dicyclomine Allergy Unknown Verified 06/13/20 10:13 diltiazem Allergy Unknown Verified 06/13/20 10:13 doxycycline Allergy Shortness Verified 06/13/20 10:13 of breath ezetimibe Allergy Unknown Verified 06/13/20 10:13 fluvastatin Allergy Unknown Verified 06/13/20 10:13 metoprolol (From Toprol XL) Allergy Unknown Verified 06/13/20 10:13 nitrofurantoin Allergy Unknown Verified 06/13/20 10:13 phenobarbital Allergy Unknown Verified 06/13/20 10:13 prochlorperazine (From Allergy Unknown Verified 06/13/20 10:13 Compazine) promethazine Allergy PT UNSURE Verified 06/13/20 10:13 OF REACTION simvastatin (From Zocor) Allergy Unknown Verified 06/13/20 10:13 Yinzulz-STB-LaW Reductase Allergy Unknown Verified 06/13/20 10:13 Inhibitor (Oxcbbkc-Swy-Fnb Reductase Inhibitor) Sulfa (Sulfonamide Allergy PT UNSURE Verified 06/13/20 10:13 Antibiotics) OF REACTION sulfamethoxazole (From Allergy Unknown Verified 06/13/20 10:13 Bactrim) tamsulosin (From Flomax) Allergy Unknown Verified 06/13/20 10:13 trimethoprim (From Bactrim) Allergy Unknown Verified 06/13/20 10:13 carvedilol AdvReac Vomiting Verified 06/13/20 10:13 Family History Mother CAD (coronary artery disease) Hypertension Brother CAD (coronary artery disease) Hypertension Other Heart disease Surgical History History of transurethral resection of prostate (04/26/20) urolift (04/28/19) Presence of coronary angioplasty implant and graft (~11/07/18) History of lobectomy of lung Social History Smoking Status: Former smoker how long ago did patient quit smokin years ago alcohol intake: never substance use type: does not use caffeine: No ROS ROS Narrative Review of systems: General: Patient denies fever or chills. HENT: Denies headache, denies stuffy nose, denies sore throat EYES: Denies changes in vision or discharge from eyes Resp: Denies cough, denies shortness of breath Cardiac: Denies chest pain, palpitations or heart racing. GI: Denies abdominal pain, denies changes in bowel, denies nausea or vomiting. : Denies changes in urination Extremity: Denies swelling Musculoskeletal: + back pain Neuro: Patient denies headache, paresthesias or focal neurologic deficits Heme: Denies any bleeding or bruising Skin: Denies rashes Psychiatric: No complaints voiced related to uncontrolled depression or anxiety. Endocrine: No polyuria, polydipsia or polyphagia. The rest of the 14 point ROS was negative except for positives in HPI. Physical Exam Narrative Back: Mild right lower lumbar tenderness to the flank area. No tenderness to percussion. Negative facet load. SLR + right sided leg pain 5/5 strength in lower extremities. DTR physiologic in lower extremities. Normal sensation. No SI tenderness. Able to stand with assistance. Const alert and no apparent distress General Appearance: cooperative HEENT normocephalic Lab / Micro Data 12/06/23 06:00 12/06/23 06:00 Micro: Microbiology 12/06/23 07:01 Urine Catheter - Catheter Urine Culture - Preliminary Gram negative julissa Imaging Radiology Impression Lumbar Spine MRI 12/06/23 10:00 IMPRESSION: 1. Enhancing recent traumatic fracture across the upper L1 vertebral body extending to both L1 pedicles. This is nonpathologic fracture. If patient has debilitating back pain referrable to this site, this is feasible for kyphoplasty. 2. No MRI evidence of lumbar extruded disc fragment. 3. Moderate stenosis of the left L4-L5 intervertebral neuroforamen due to pronounced disc space height narrowing and left posterior bulging annulus touching the undersurface of the left L4 nerve. Advise clinical correlation if there are symptoms of left L4 nerve radiculopathy particularly upon weightbearing. Electronically Signed: Lex Garcia MD at 12:13 EDT ,
[2023-12-07] MEDS: Lactobacillis Acidophilus 1 CAP PO ×4 (09:43→21:29)
[2023-12-07] MEDS: Losartan Potassium 25 MG Tablet 12.5 MG PO ×2 (09:44→21:30)
[2023-12-07] MEDS: Digoxin 125 MCG Tablet PO (09:44)
[2023-12-07] MEDS: Furosemide 40 MG Tablet PO ×2 (09:45→17:16)
[2023-12-07] MEDS: Lidocaine 5% Patch 2 PATCH TOPICAL (09:46)
[2023-12-07] MEDS: Enoxaparin 40 MG/0.4 ML Syringe SC (09:46)
[2023-12-07] MEDS: guaiFENesin 1,200 MG Tablet 1200 MG PO (09:46)
[2023-12-07] MEDS: Pantoprazole Sodium 20 MG Tablet PO (09:47)
[2023-12-07] MEDS: Finasteride 5 MG Tablet PO (09:47)
[2023-12-07] MEDS: Sertraline 100 MG Tablet PO (09:47)
[2023-12-07] MEDS: Acetaminophen 325 MG Tablet 650 MG PO (15:31)
[2023-12-07] MEDS: oxyCODONE 5 MG Tablet 10 MG PO (15:32)
[2023-12-07] MEDS: 0.9% Normal Saline (1000mL) 1,000 ML 50 ML IV (17:22)
--- NOTE | 2023-12-07 17:26 | PCM.PN.HOSP ---
Reason for Visit Reason for Visit: Diagnoses Chronic obstructive pulmonary disease, unspecified (12/05/23) Acute cystitis without hematuria (12/05/23) Difficulty in walking, not elsewhere classified (12/05/23) Weakness (12/05/23) Strain of muscle, fascia and tendon of lower back, initial encounter (12/05/23) Subjective Subjective Patient was seen and examined today, he still complains of back pain, his echocardiogram was unremarkable today and did not show anything serious. Patient had mild pulmonary hypertension. LV function was normal. Patient was seen by pain management today, it is unknown whether he will undergo kyphoplasty tomorrow. Objective Data Objective Data Vital Signs: Vital Signs Temp Pulse Resp BP Pulse Ox O2 Del Method O2 Flow Rate 99.1 F 94 16 122/63 H 98 Room Air 2 12/07/23 14:36 12/07/23 14:36 12/07/23 14:36 12/07/23 14:36 12/07/23 16:12 12/07/23 14:36 12/07/23 16:41 Oxygen Flow Rate (L/min) 2 Oxygen Delivery Method Room Air Weight: 58.2 kg Body Mass Index (BMI) 20.6 Intake & Output: Intake and Output for Last 24 Hours 12/05/23 12/06/23 12/07/23 23:59 23:59 23:59 Intake Total 2092.5 / 2092.5 983.33 / 983.33 Output Total 3150 / 3150 1500 / 1500 Balance -1057.5 / -1057.5 -516.67 / -516.67 Lab / Micro Data 12/06/23 06:00 12/06/23 06:00 Micro: Microbiology 12/06/23 07:01 Urine Catheter - Catheter Urine Culture - Preliminary Gram negative julissa Radiography Diagnostic Testing: Radiology Impression Echocardiogram 12/07/23 06:00 Interpretation Summary Normal LV size. Left ventricular systolic function is normal. The left ventricular ejection fraction is 60 %. Mild concentric left ventricular hypertrophy. Small pericardial effusion. Ordering Physician: Ellis Sánchez Performed By: Sammy Patel RCS Physical Exam Narrative alert, oriented x3 and no apparent distress Constitutional Narrative: Patient appears frail General Appearance: cooperative, well kempt and well developed Orientation / Consciousness: awake, oriented to person, oriented to place and oriented to time HEENT normocephalic, head/scalp atraumatic and moist oral mucous membranes Eyes PERRL, EOMs intact bilaterally and conjunctivae normal Neck supple, no JVD, thyroid normal and no carotid bruits General: trachea midline Resp normal respiratory effort, no retractions, no use of accessory muscles and clear to auscultation bilaterally Auscultation: Negative for rales, rhonchi or wheezes Cardio regular rate, regular rhythm, S1 normal heart sound, S2 normal heart sound, no murmurs, no rub and no gallops GI normal to inspection, nondistended, normoactive bowel sounds, soft to palpation, non-tender and non-distended Extremity no clubbing, cyanosis or edema Skin no rashes or lesions noted General Skin Exam: no breakdown Neuro oriented x3, CN's II-XII intact bilaterally, moves all extremities, no focal motor deficits and no sensory deficits noted Sensorium / Orientation: awake and alert Speech: speech normal Psych affect normal Assessment & Plan Assessment/Plan (1) Intractable low back pain: PLAN: Plan 1. Intractable back pain-probably secondary to L1 compression fracture-this appears to be recent, he was seen by pain management today and most probably will undergo a kyphoplasty this admission, he may need placement in a penitentiary facility for rehab services rather than go home. #2 bacteriuria with pyuria-patient's urine culture grew out more than 100,000 colonies of gram-negative julissa, again the patient is asymptomatic and this may just be colonization with some pyuria. I have elected to continue the patient's Macrodantin for now. #3 chronic obstructive pulmonary disease-patient is currently on oxygen and aerosol treatments #4 chronic hypoxic respiratory failure-patient is currently on 2 L of oxygen #5 coronary artery disease-stable at this time Total clinical time spent by myself addressing the patient's medical issues, reviewing all of his data, and collaborating with patient's care team: 35 minutes Charges/Coding Visit Charges Inpatient E&M: 50036 Subs Hosp L2
[2023-12-07] MEDS: Senna/Docusate Sodium 1 Tablet PO (21:30)
[2023-12-07] MEDS: Mirtazapine 15 MG Tablet PO (21:31)
[2023-12-08] VITALS (10 sets, daily range): BP systolic 105–136; BP diastolic 65–70; PULSE 61–88; RESP 15–20; TEMP 36.4–36.6; O2SAT 97–100; BMI 21.2
[2023-12-08] MEDS: dexAMETHasone 4 MG/ML Vial IV ×3 (05:24→17:23)
[2023-12-08] MEDS: Ipratropium/Albuterol Sulfate 3 ML AMPUL.NEB INHALATION ×5 (05:37→22:42)
--- NOTE | 2023-12-08 07:44 | PN.HOSP_ITS ---
Reason for Visit Reason for Visit: Diagnoses Chronic obstructive pulmonary disease, unspecified (12/05/23) Other low back pain (12/05/23) Acute cystitis without hematuria (12/05/23) Difficulty in walking, not elsewhere classified (12/05/23) Weakness (12/05/23) Wedge compression fracture of first lumbar vertebra, initial encounter for closed fracture (12/05/23) Strain of muscle, fascia and tendon of lower back, initial encounter (12/05/23) Subjective Subjective Patient is an 83-year-old gentleman admitted with intractable back pain found to have L1 compression admitted to regular nursing floor for pain management Objective Data Objective Data Vital Signs: Vital Signs Temp Pulse Resp BP Pulse Ox O2 Del Method O2 Flow Rate 97.5 F L 61 20 H 134/70 H 98 Nasal Cannula 2 12/08/23 02:15 12/08/23 05:37 12/08/23 05:37 12/08/23 02:15 12/08/23 02:15 12/08/23 07:38 12/08/23 07:38 Oxygen Flow Rate (L/min) 2 Oxygen Delivery Method Nasal Cannula Weight: 59.783 kg Body Mass Index (BMI) 21.2 Intake & Output: Intake and Output for Last 24 Hours 12/06/23 12/07/23 12/08/23 23:59 23:59 23:59 Intake Total 2092.5 / 2092.5 1483.33 / 1483.33 150 / 150 Output Total 3150 / 3150 2100 / 2100 650 / 650 Balance -1057.5 / -1057.5 -616.67 / -616.67 -500 / -500 Lab / Micro Data 12/06/23 06:00 12/06/23 06:00 Micro: Microbiology 12/06/23 07:01 Urine Catheter - Catheter Urine Culture - Preliminary Gram negative julissa Radiography Diagnostic Testing: Radiology Impression Echocardiogram 12/07/23 06:00 Interpretation Summary Normal LV size. Left ventricular systolic function is normal. The left ventricular ejection fraction is 60 %. Mild concentric left ventricular hypertrophy. Small pericardial effusion. Ordering Physician: Ellis Sánchez Performed By: Sammy Patel RCS Physical Exam Narrative GENERAL: cooperative HEENT: Atraumatic; normocephalic EYES; Anicteric, Normal Conjunctiva NECK; supple, normal thyroid, RESPIRATORY: Diminished to auscultation CARDIOVASCULAR: Regular S1 S2, GI: soft, normoactive bowel sounds, : No Renal angle tenderness; EXTREMITIES: No edema, no clubbing, MUSCULOSKELETAL: no muscle wasting NEURO: Awake; no lateralizing signs. SKIN: No Rash PSYCH; Flat affect Assessment & Plan Assessment/Plan (1) Intractable low back pain: PLAN: Plan Patient is an 83-year-old gentleman admitted with intractable back pain found to have L1 compression admitted to regular nursing floor for pain management 1. Acute low back pain ? Secondary to L1 compression fracture. Patient admitted to regular nursing floor managed with pain meds with consultation placed to pain management with plans for patient to undergo kyphoplasty 2. Acute complicated cystitis with Pseudomonas ? Patient placed on Levaquin 3. COPD ? Without acute exacerbation aerosol treatments as needed 4. Chronic hypoxic respiratory failure ? Secondary to COPD patient is on baseline home oxygen 2 L at rest 5. Coronary artery disease ? With previous PCI patient is on guideline directed medical therapy 6. History of lung CA ? Currently in remission 7. BPH with lower urinary obstructive symptoms - Patient treated with finasteride 8. Depression with anxiety ? Patient is on sertraline 9. GERD ? On PPI 10. Diabetes mellitus type 2 ? Managed on diet placed on Accu-Cheks before meals and at bedtime with sliding scale coverage 11. Physical deconditioning ? Requested for PT OT eval and social media developer to assist with discharge planning 12. DVT prophylaxis ? On enoxaparin Time spent in the patient's overall evaluation,decision-making process, review of diagnostic data, adjustment of management, discussion with other providers, nursing nursing and ancillary staff involved in patient's care documentation, 53 Minutes Charges/Coding Visit Charges Inpatient E&M: 84079 [facility] Hosp L3
[2023-12-08] MEDS: Lidocaine 5% Patch 2 PATCH TOPICAL (08:56)
[2023-12-08] MEDS: Enoxaparin 40 MG/0.4 ML Syringe SC (09:00)
[2023-12-08] MEDS: Lactobacillis Acidophilus 1 CAP PO ×4 (09:00→22:13)
[2023-12-08] MEDS: guaiFENesin 1,200 MG Tablet 1200 MG PO (09:00)
[2023-12-08] MEDS: Finasteride 5 MG Tablet PO (09:00)
[2023-12-08] MEDS: Digoxin 125 MCG Tablet PO (09:00)
[2023-12-08] MEDS: Sertraline 100 MG Tablet PO (09:00)
[2023-12-08] MEDS: Pantoprazole Sodium 20 MG Tablet PO (09:00)
[2023-12-08] MEDS: Furosemide 40 MG Tablet PO ×2 (09:00→17:25)
[2023-12-08] MEDS: Nitrofurantoin Macrocrystals 100 MG Capsule PO (09:01)
[2023-12-08] MEDS: Primidone 50 MG Tablet 150 MG PO ×3 (09:01→17:24)
[2023-12-08] MEDS: Losartan Potassium 25 MG Tablet 12.5 MG PO ×2 (09:01→22:12)
[2023-12-08] MEDS: Aspirin E.C. 81 MG Tablet PO (09:01)
[2023-12-08] MEDS: oxyCODONE 5 MG Tablet 10 MG PO ×2 (09:07→17:33)
[2023-12-08] MEDS: Acetaminophen 325 MG Tablet 650 MG PO ×2 (09:08→17:33)
--- NOTE | 2023-12-08 15:41 | PCM.CONS.GEN ---
Assessment & Plan Assessment/Plan (1) Intractable low back pain: (2) Closed compression fracture of L1 vertebra: QUALIFIERS: Encounter type: initial encounter Qualified Code(s): S32.010A - Wedge compression fracture of first lumbar vertebra, initial encounter for closed fracture PLAN: Plan Mr. Shukla was admitted for severe intractable back pain likely due to L1 traumatic compression fracture. MRI demonstrated recent L1 traumatic fracture in setting of recent fall. He has been on IV steroids, p.r.n. 10 mg oxycodone and Tylenol. I discussed at great length with the patient as well as his family the risks and benefits relating to kyphoplasty. I discussed conservative treatment options as well as procedural options. Given has improvement with respect to pain, I recommend holding off on kyphoplasty at this time. This is partially due to the risk associated with the procedure anesthesia, as well as his significant comorbidities. The pain is 2 suddenly worsen or return after cessation of the antibiotics to a point where debility and severe pain is present, I will consider an L1 kyphoplasty. I spoke with Dr. Cabrera about the above plan mom as well as my recommendation to taper to an oral steroid taper from the IV in the next day or so. I also updated the family regarding this decision as per the patient request. Of note he has allergy to cephalexin as well. A total of 52 minutes was spent on preparation, [id number] time, speaking with nursing and Dr. Cabrera, speaking with family and and documentation the day of visit. HPI Consult Data Date of Consult: 12/08/23 HPI Narrative Reason for Consultation: back pain HPI Narrative: NIESHA SHUKLA, is a 83 M who presents with a recent history of back pain after a recent fall. The pain was severe to the point that he was having further difficulty with ADLs. he has baseline COPD and has significant funcitonal limitations due to this. He ended up in the ED and was admitted for evaluation. I am being consulted for back pain and kyphoplasty consideration. He has pmh of COPD (on hospice for years for this) on 02, ckd, CARLIN, GERD, CAD s/p angioplasty and T2DM. Lumbar MRI demonstrated recent L1 vertebral fracture that was traumatic in nature and feasible for kyphoplasty. Dr. Sánchez has ordered an echo for preoperative clearance. Being treated with IV steroid, tylenol and prn oxycodone in hospital. He was taking oxycodone 5mg at home, but this was causing some sleepiness. tolerating the medication in hospital well. NEW: He continues to do well. He has only needed 1 dose of oxycodone today as well as 1 dose yesterday. He says he was up and out of bed and able to ambulate a bit with support. Per nursing his pain level was only up to about a 4. PFSH Medical History (Updated 12/06/23 @ 09:[address] Ellis Sánchez, DO) S/P coronary artery stent placement (~11/07/18) Atherosclerotic heart disease of [place] coronary artery without angina pectoris Abnormal stress test Former smoker GERD (gastroesophageal reflux disease) BPH (benign prostatic hyperplasia) History of malignant neoplasm of lung CARLIN (obstructive sleep apnea) Chronic renal failure, stage 2 (mild) Chest pain COPD (chronic obstructive pulmonary disease) Anxiety disorder Home Medications ?Medication ?Instructions ?Recorded ?Last Taken ?Type theophylline 300 mg 300 mg PO DAILY breathing 11/13/15 10/10/18 09:00 History tablet,extended release,12 hr 300 mg albuterol sulfate 90 mcg/actuation 1 - 2 puff inhalation Q4H PRN PRN 08/26/17 05/08/19 Rx aerosol inhaler Sob &/Or Wheezing ##1 ipratropium 0.5 mg-albuterol 3 mg 3 ml inhalation 4X/DAY PRN PRN Sob 03/11/18 10/10/18 18:00 History (2.5 mg base)/3 mL nebulization &/Or Wheezing soln nitroglycerin 0.4 mg sublingual 0.4 mg sublingual Q5M PRN Chest 03/11/18 Unknown History tablet Pain primidone 50 mg tablet 150 mg PO TID seizures 10/27/18 05/08/19 History acetaminophen 325 mg capsule 650 mg PO Q4H PRN PRN pain/fever 04/11/19 Unknown History omeprazole 20 mg capsule,delayed 20 mg PO DAILY stomach 05/08/19 05/08/19 History release digoxin 250 mcg (0.25 mg) tablet 125 mcg PO DAILY heart 05/09/19 05/08/19 History azithromycin 250 mg tablet 250 mg PO DAILY 12/06/19 Unknown History budesonide-formoterol HFA 160 2 puff inhalation BID copd 12/06/19 Unknown History mcg-4.5 mcg/actuation aerosol inhaler furosemide 20 mg tablet 40 mg PO BID edema 12/06/19 Unknown History losartan 25 mg tablet 12.5 mg PO BID bp 12/06/19 Unknown History mirtazapine 15 mg tablet 15 mg PO QHS sleep 12/06/19 Unknown History oxycodone 5 mg tablet 5 mg PO Q6H 12/06/19 Unknown History ipratropium 20 mcg-albuterol 100 1 puff inhalation DAILY 04/19/20 Unknown History mcg/actuation mist for inhalation aspirin 81 mg tablet,delayed 81 mg PO DAILY 06/13/20 Unknown History release (Adult Aspirin Regimen) guaifenesin 1,200 mg tablet, 1,200 mg PO QAM Congestion 06/13/20 Unknown History extended release 12 hr prednisone 10 mg tablet 20 mg PO DAILY 06/13/20 Unknown History finasteride 5 mg tablet 5 mg PO DAILY 12/05/23 Unknown History lorazepam 1 mg tablet 1 mg PO Q6H PRN anxiety 12/05/23 Unknown History sennosides 8.6 mg-docusate sodium 1 tab-cap PO QHS 12/05/23 Unknown History 50 mg tablet sertraline 100 mg tablet 100 mg PO DAILY 12/05/23 Unknown History Allergy/AdvReac Type Severity Reaction Status Date / Time esomeprazole Allergy Unknown NEEDS Verified 11/30/22 09:50 FOLLOW-UP gabapentin Allergy Unknown Unknown Verified 06/13/20 10:13 acetylcysteine (From Allergy Shortness Verified 06/13/20 10:13 Mucomyst) of breath alprazolam (From Xanax) Allergy breathing Verified 06/13/20 10:13 issues atorvastatin (From Lipitor) Allergy PT UNSURE Verified 06/13/20 10:13 OF REACTION belladonna alkaloids Allergy Unknown Verified 06/13/20 10:13 cephalexin Allergy Unknown Verified 06/13/20 10:13 ciprofloxacin (From Cipro) Allergy Unknown Verified 06/13/20 10:13 dicyclomine Allergy Unknown Verified 06/13/20 10:13 diltiazem Allergy Unknown Verified 06/13/20 10:13 doxycycline Allergy Shortness Verified 06/13/20 10:13 of breath ezetimibe Allergy Unknown Verified 06/13/20 10:13 fluvastatin Allergy Unknown Verified 06/13/20 10:13 metoprolol (From Toprol XL) Allergy Unknown Verified 06/13/20 10:13 nitrofurantoin Allergy Unknown Verified 06/13/20 10:13 phenobarbital Allergy Unknown Verified 06/13/20 10:13 prochlorperazine (From Allergy Unknown Verified 06/13/20 10:13 Compazine) promethazine Allergy PT UNSURE Verified 06/13/20 10:13 OF REACTION simvastatin (From Zocor) Allergy Unknown Verified 06/13/20 10:13 Hcvhwfu-Dqv-Rub Reductase Allergy Unknown Verified 06/13/20 10:13 Inhibitor Sulfa (Sulfonamide Allergy PT UNSURE Verified 06/13/20 10:13 Antibiotics) OF REACTION sulfamethoxazole (From Allergy Unknown Verified 06/13/20 10:13 Bactrim) tamsulosin (From Flomax) Allergy Unknown Verified 06/13/20 10:13 trimethoprim (From Bactrim) Allergy Unknown Verified 06/13/20 10:13 carvedilol AdvReac Vomiting Verified 06/13/20 10:13 Family History Mother CAD (coronary artery disease) Hypertension Brother CAD (coronary artery disease) Hypertension Other Heart disease Surgical History History of transurethral resection of prostate (04/26/20) urolift (04/28/19) Presence of coronary angioplasty implant and graft (~11/07/18) History of lobectomy of lung Social History Smoking Status: Former smoker how long ago did patient quit smokin years ago alcohol intake: never substance use type: does not use caffeine: No Lab / Micro Data 12/06/23 06:00 12/06/23 06:00 Micro: Microbiology 12/06/23 07:01 Urine Catheter - Catheter Urine Culture - Final Pseudomonas aeruginosa
[2023-12-08] MEDS: levoFLOXacin 500 MG Tablet PO (17:23)
[2023-12-08] MEDS: Ensure Plus High Protein 120 ML LIQUID PO (17:32)
[2023-12-08] MEDS: Mirtazapine 15 MG Tablet PO (22:12)
[2023-12-08] MEDS: Senna/Docusate Sodium 1 Tablet PO (22:12)
[2023-12-09] VITALS (8 sets, daily range): BP systolic 120–132; BP diastolic 58–67; PULSE 78–87; RESP 15–18; TEMP 36.4–36.8; O2SAT 99–100; BMI 20.9
[2023-12-09] MEDS: dexAMETHasone 4 MG/ML Vial IV ×3 (00:26→12:42)
[2023-12-09] MEDS: 0.9% Saline Lock 10 ML Syringe IV ×2 (00:26→06:31)
[2023-12-09] MEDS: Ipratropium/Albuterol Sulfate 3 ML AMPUL.NEB INHALATION ×4 (03:05→15:41)
[2023-12-09] MEDS: Acetaminophen 325 MG Tablet 650 MG PO ×2 (04:30→10:32)
[2023-12-09] MEDS: oxyCODONE 5 MG Tablet 10 MG PO (04:31)
[2023-12-09] MEDS: levoFLOXacin 500 MG Tablet PO (06:29)
--- NOTE | 2023-12-09 07:33 | PCM.PN.HOSP ---
Reason for Visit Reason for Visit: Diagnoses Chronic obstructive pulmonary disease, unspecified (12/05/23) Other low back pain (12/05/23) Acute cystitis without hematuria (12/05/23) Difficulty in walking, not elsewhere classified (12/05/23) Weakness (12/05/23) Wedge compression fracture of first lumbar vertebra, initial encounter for closed fracture (12/05/23) Strain of muscle, fascia and tendon of lower back, initial encounter (12/05/23) Subjective Subjective Patient seen pain continue to improve with conservative management. Case was discussed with pain management plan is to pursue conservative management with no kyphoplasty planned. Objective Data Objective Data Vital Signs: Vital Signs Temp Pulse Resp BP Pulse Ox O2 Del Method O2 Flow Rate 97.9 F 78 15 120/62 100 Nasal Cannula 2 12/09/23 04:00 12/09/23 04:00 12/09/23 04:00 12/09/23 04:00 12/09/23 04:00 12/09/23 04:00 12/09/23 07:23 Oxygen Flow Rate (L/min) 2 Oxygen Delivery Method Nasal Cannula Weight: 59 kg Body Mass Index (BMI) 20.9 Intake & Output: Intake and Output for Last 24 Hours 12/07/23 12/08/23 12/09/23 23:59 23:59 23:59 Intake Total 1483.33 / 1483.33 1350 / 1450 100 / 100 Output Total 2100 / 2100 1550 / 2550 1800 / 1800 Balance -616.67 / -616.67 -200 / -1100 -1700 / -1700 Lab / Micro Data 12/09/23 07:08 12/06/23 06:00 Labs: Laboratory Results - last 24 hr 12/06/23 06:00: Miscellaneous Test Micro: Microbiology 12/06/23 07:01 Urine Catheter - Catheter Urine Culture - Final Pseudomonas aeruginosa Physical Exam Narrative GENERAL: cooperative HEENT: Atraumatic; normocephalic EYES; Anicteric, Normal Conjunctiva NECK; supple, normal thyroid, RESPIRATORY: Diminished to auscultation CARDIOVASCULAR: Regular S1 S2, GI: soft, normoactive bowel sounds, : No Renal angle tenderness; EXTREMITIES: No edema, no clubbing, MUSCULOSKELETAL: no muscle wasting NEURO: Awake; no lateralizing signs. SKIN: No Rash PSYCH; Flat affect Assessment & Plan Assessment/Plan (1) Intractable low back pain: PLAN: Plan Patient is an 83-year-old gentleman admitted with intractable back pain found to have L1 compression admitted to regular nursing floor for pain management 1. Acute low back pain ? Secondary to L1 compression fracture. Patient admitted to regular nursing floor managed with pain meds with consultation placed to pain management with plans for patient to undergo kyphoplasty ? 12/09/2023 ; Patient seen pain continue to improve with conservative management. Case was discussed with pain management plan is to pursue conservative management with no kyphoplasty planned. 2. Acute complicated cystitis with Pseudomonas ? Patient placed on Levaquin. ? 12/09/2023 patient had no reaction to Levaquin despite ciprofloxacin being listed as an allergy 3. COPD ? Without acute exacerbation aerosol treatments as needed 4. Chronic hypoxic respiratory failure ? Secondary to COPD patient is on baseline home oxygen 2 L at rest 5. Coronary artery disease ? With previous PCI patient is on guideline directed medical therapy 6. History of lung CA ? Currently in remission 7. BPH with lower urinary obstructive symptoms - Patient treated with finasteride 8. Depression with anxiety ? Patient is on sertraline 9. GERD ? On PPI 10. Diabetes mellitus type 2 ? Managed on diet placed on Accu-Cheks before meals and at bedtime with sliding scale coverage 11. Physical deconditioning ? Requested for PT OT eval and health and social care teacher to assist with discharge planning 12. DVT prophylaxis ? On enoxaparin Time spent in the patient's overall evaluation,decision-making process, review of diagnostic data, adjustment of management, discussion with other providers, nursing nursing and ancillary staff involved in patient's care documentation, 40 minutes Charges/Coding Visit Charges Inpatient E&M: 00938 Subs Hosp L2
[2023-12-09] MEDS: Lidocaine 5% Patch 2 PATCH TOPICAL (08:11)
[2023-12-09] MEDS: Primidone 50 MG Tablet 150 MG PO ×2 (08:11→12:42)
[2023-12-09] MEDS: Pantoprazole Sodium 20 MG Tablet PO (08:11)
[2023-12-09] MEDS: Losartan Potassium 25 MG Tablet 12.5 MG PO (08:12)
[2023-12-09] MEDS: Sertraline 100 MG Tablet PO (08:12)
[2023-12-09] MEDS: Digoxin 125 MCG Tablet PO (08:12)
[2023-12-09] MEDS: Lactobacillis Acidophilus 1 CAP PO ×2 (08:13→13:13)
[2023-12-09] MEDS: Aspirin E.C. 81 MG Tablet PO (08:13)
[2023-12-09] MEDS: Finasteride 5 MG Tablet PO (08:13)
[2023-12-09] MEDS: guaiFENesin 1,200 MG Tablet 1200 MG PO (08:13)
[2023-12-09 08:18] LABS: Absolute Lymphocyte Count 1.42 X10^3/uL (0.83-4.51); Absolute Neutrophil Count 4.8 X10^3/uL (2.0-7.7); Basophil# 0.03 X10^3/uL; Basophil% 0.4 % (0-1); Eosinophil# 0.05 X10^3/uL; Eosinophils% 0.7 % (0-5); Hematocrit 38.1 % (40-54); Hemoglobin 12.3 g/dL (13.0-16.5); Lymphocyte # 1.42 X10^3/ul (0.83-4.51); Lymphocyte % 20.4 % (19-41); Mean Corp Hgb Conc 32.3 g/dL (32-36); Mean Corpuscular Hgb 29.4 pg (27.0-32.0); Mean Corpuscular Volume 91.1 fL (80-94); Mean Platelet Vol. 10.4 fl (6.2-12.0); Monocyte# 0.55 X10^3/uL; Monocyte% 7.9 % (0-10); NRBC Flagged by Analyzer 0 % (0-5); Neutrophil # 4.81 X10^3/uL (2.7-7.7); Neutrophil % 69.3 % (47-70); Platelet Count 289 K/mm3 (150-450); RBC Distribution Width SD 47.4 fl (35.1-43.9); Red Blood Count 4.18 M/mm3 (4.6-6.2)
[2023-12-09 08:50] LABS: Bedside Glucose 159 mg/dL (74-106)
[2023-12-09 08:54] LABS: Anion Gap 8 (5-15); BUN 30 mg/dL (7-18); BUN/Creat Ratio 27.5 RATIO (10-20); Calcium,Total 8.7 mg/dL (8.5-10.1); Chloride 104 mmol/L (98-107); Creatinine, Serum 1.09 mg/dL (0.70-1.30); EST Glomerular Filtration Rate 68 mL/min (>60); Est Glom Filt Rate - Afr Amer 83 mL/min (>60); Estimated Creatinine Clearance 41.35 ml/min; Glucose 146 mg/dL (74-106); Magnesium 2.8 mg/dL (1.6-2.6); Phosphorus 2.6 mg/dL (2.5-4.9); Potassium 3.9 mmol/L (3.5-5.1); Sodium Level 141 mmol/L (136-145)
--- NOTE | 2023-12-09 10:11 | CASEMGMT ---
Discharge Planning A list of?SNF providers including quality and resource use data and consistent with the patient's preferred geographic region, medical needs, and insurance network was created in [facility] Guide.? This list was provided to the SW. Carla Herrera Discharge Planning Asst.
[2023-12-09] MEDS: Enoxaparin 40 MG/0.4 ML Syringe SC (10:30)
--- NOTE | 2023-12-09 11:36 | CASEMGMT ---
Social Work- SW met with pt and pt granddaughter. Pt states that he has been on hospice 3-4 years. Pt reports he has had trouble just prior to admission with weakness and inability to tolerate activity at prior level. Pt reports that he fell trying to empty catheter bag. Pt granddaughter reports that pt had been looking at [facility] prior to admittance d/t functional decline. A list of SNF providers including quality and resource use data and consistent with the patient?s preferred geographic region, medical needs, and insurance network were provided from the [facility] Guide. Pt and granddaughter asked SW to follow up with dtr Juliann for d/c plans. SW called pt dtr Juliann to discuss preferences at d/c. Julinan shared that since TCU does not have beds, [facility] is FOC. SW provided education on process. Juliann shared concerns about breathing treatment timing. SW researched and shared findings that treatments had been administer as scheduled. JUAN advised of referral request for [facility]. Juliann reports that the family wishes to revoke hospice for skilled stay d/t wanting coverage of skilled stay. JUAN advised. SANTOS Estrada
--- NOTE | 2023-12-09 11:59 | CASEMGMT ---
Addendum entered by Carla Herrera 12/09/23 14:21: [facility] has accepted. Debbie @ [facility] confirmed that hospice services have been revoked. SW updated. Carla Herrera DC Planning Asst. Original Note: Discharge Planning Referral sent to [facility]. Carla Herrera DC Planning Asst.
[2023-12-09] MEDS: Polyethylene Glycol 3350 17 GM PACKET PO (13:11)
[2023-12-09] MEDS: Senna/Docusate Sodium 1 Tablet 2 TABLET PO (13:11)
[2023-12-09] MEDS: Ensure Plus High Protein 120 ML LIQUID PO (13:13)
--- NOTE | 2023-12-09 13:25 | CASEMGMT ---
Addendum entered by Shanika Rice 12/09/23 15:05: TC to Gretchen at [facility] Registration, she is aware pt signed the [facility] decl[facility] and this [employer] PERSON is faxing form currently. [facility] form to [facility] transfer [facility] as well. Original Note: SO[facility] PERSON into pt room. Pt wishes to dc to SNF under his medicare. Discussed [facility] declination form with pt, pt signed form at this time. Pt denies any further questions.
--- NOTE | 2023-12-09 14:24 | PCM.TXEXTCAR ---
Diet Diet Order/Speech Therapy: 12/06/23 09:29 Diet: Regular - General Food consistency:: Regular Liquid Consistency:: Regular/Thin Dietary Modifications:: No Added Salt Type of Dietary Supplement:: Ensure Compact w/ break Wound(s) Elbow: Wound Type: Skin Tear Therapies Physical Therapy: Eval and Treat Occupational Therapy: Eval and Treat Problem/Diagnosis (1) Intractable low back pain: Status: Acute Code(s): M54.59 - Other low back pain Plan Patient is an 83-year-old gentleman admitted with intractable back pain found to have L1 compression admitted to regular nursing floor for pain management 1. Acute low back pain ? Secondary to L1 compression fracture. Patient admitted to regular nursing floor managed with pain meds with consultation placed to pain management with plans for patient to undergo kyphoplasty ? 12/09/2023 ; Patient seen pain continue to improve with conservative management. Case was discussed with pain management plan is to pursue conservative management with no kyphoplasty planned. 2. Acute complicated cystitis with Pseudomonas ? Patient placed on Levaquin. ? 12/09/2023 patient had no reaction to Levaquin despite ciprofloxacin being listed as an allergy 3. COPD ? Without acute exacerbation aerosol treatments as needed 4. Chronic hypoxic respiratory failure ? Secondary to COPD patient is on baseline home oxygen 2 L at rest 5. Coronary artery disease ? With previous PCI patient is on guideline directed medical therapy 6. History of lung CA ? Currently in remission 7. BPH with lower urinary obstructive symptoms - Patient treated with finasteride 8. Depression with anxiety ? Patient is on sertraline 9. GERD ? On PPI 10. Diabetes mellitus type 2 ? Managed on diet placed on Accu-Cheks before meals and at bedtime with sliding scale coverage 11. Physical deconditioning ? Requested for PT OT eval and social service technician to assist with discharge planning 12. DVT prophylaxis ? On enoxaparin Time spent in the patient's overall evaluation,decision-making process, review of diagnostic data, adjustment of management, discussion with other providers, nursing nursing and ancillary staff involved in patient's care documentation, 40 minutes Allergies/Procedures Done in Hospital Allergies esomeprazole Allergy (Unknown, Verified 11/30/22 09:50) NEEDS FOLLOW-UP gabapentin Allergy (Unknown, Verified 06/13/20 10:13) Unknown acetylcysteine (From Mucomyst) Allergy (Verified 06/13/20 10:13) Shortness of breath alprazolam (From Xanax) Allergy (Verified 06/13/20 10:13) breathing issues atorvastatin (From Lipitor) Allergy (Verified 06/13/20 10:13) PT UNSURE OF REACTION belladonna alkaloids Allergy (Verified 06/13/20 10:13) Unknown cephalexin Allergy (Verified 06/13/20 10:13) Unknown ciprofloxacin (From Cipro) Allergy (Verified 06/13/20 10:13) Unknown dicyclomine Allergy (Verified 06/13/20 10:13) Unknown diltiazem Allergy (Verified 06/13/20 10:13) Unknown doxycycline Allergy (Verified 06/13/20 10:13) Shortness of breath ezetimibe Allergy (Verified 06/13/20 10:13) Unknown fluvastatin Allergy (Verified 06/13/20 10:13) Unknown metoprolol (From Toprol XL) Allergy (Verified 06/13/20 10:13) Unknown nitrofurantoin Allergy (Verified 06/13/20 10:13) Unknown phenobarbital Allergy (Verified 06/13/20 10:13) Unknown prochlorperazine (From Compazine) Allergy (Verified 06/13/20 10:13) Unknown promethazine Allergy (Verified 06/13/20 10:13) PT UNSURE OF REACTION simvastatin (From Zocor) Allergy (Verified 06/13/20 10:13) Unknown Puulrwf-AFT-WmP Reductase Inhibitor (Ureisge-Yte-Hys Reductase Inhibitor) Allergy (Verified 06/13/20 10:13) Unknown Sulfa (Sulfonamide Antibiotics) Allergy (Verified 06/13/20 10:13) PT UNSURE OF REACTION sulfamethoxazole (From Bactrim) Allergy (Verified 06/13/20 10:13) Unknown tamsulosin (From Flomax) Allergy (Verified 06/13/20 10:13) Unknown trimethoprim (From Bactrim) Allergy (Verified 06/13/20 10:13) Unknown carvedilol Adverse Reaction (Verified 06/13/20 10:13) Vomiting Type of Care/Length of Stay Estimated LOS: Convalescent Care Less Than 30 days Type of Care Needed: Skilled Rehab Potential: Good Prognosis: Good Additional Orders/Day of Discharge Day of Discharge: 12/09/23 Dietary and Speech Recommendations Dietitian Recommendations/Changes: Will liberalize diet to regular/no added salt given advanced age and decreased appetite at meals. Will continue ensure plus HP w/ medpass as ordered. Will add ensure compact w/ breakfast tray. Will add extra ONS as needed to optimize PO and support weight. Discharge Plan Admission Admit Date/Time: 12/05/23 22:54 Attending Provider: Asad Cabrera Primary Care Provider: Care Physician,No Primary Consulting Providers: Asad Sims; Teto Herman; Ellis Sánchez Discharge Orders/Prescriptions Prescriptions: New lidocaine 5 % Adhesive Patch,Medicated 2 patch topical DAILY Qty: 0 0RF Protocol: *Topical Application Instructions APPLICATION INSTRUCTIONS: Apply to Low Back. levofloxacin 500 mg Tablet 500 mg PO DAILY@0600 Qty: 0 0RF alum-mag hydroxide-simeth [Almacone-2] 400-400-40 mg/5 mL Suspension 30 ml PO Q6H PRN PRN (Reason: Gastric Burning) Qty: 0 0RF L.acidoph,saliva-B.bif-S.therm 175 mg Capsule 1 cap PO 4X/DAY Qty: 0 0RF Ensure Plus High Protein 0.08 gram-1.5 kcal/mL Liquid 120 ml PO TIDCM Qty: 0 0RF oxycodone 5 mg capsule 5 mg PO Q6H PRN (Reason: pain) 5 Days Qty: 14 0RF Continued primidone 50 mg tablet 150 mg PO TID mirtazapine 15 mg tablet 15 mg PO QHS Patient Comments: SLEEP AIDE Rx Instructions: hold while on linezolid oxycodone 5 mg tablet 5 mg PO Q6H prednisone 10 mg tablet 20 mg PO DAILY aspirin [Adult Aspirin Regimen] 81 mg tablet,delayed release (DR/EC) 81 mg PO DAILY theophylline 300 MG tablet 300 mg PO DAILY Patient Comments: L[facility]G [facility] guaifenesin 1,200 mg tablet extended release 12hr 1,200 mg PO QAM albuterol sulfate 1 INHALER inhaler 1 - 2 puff INHALATION Q4H PRN PRN (Reason: Sob &/Or Wheezing) Qty: 1 0RF nitroglycerin 0.4 MG tablet 0.4 mg SL Q5M PRN (Reason: Chest Pain) ipratropium-albuterol 3 ML solution for nebulization 3 ml INHALATION 4X/DAY PRN PRN (Reason: Sob &/Or Wheezing) furosemide 20 mg tablet 40 mg PO BID Patient Comments: ONE TAB BY MOUTH NEEDED FOR SWELLING. UP TO ONE TAB TWICE WEEKLY. acetaminophen 325 MG capsule 650 mg PO Q4H PRN PRN (Reason: pain/fever) budesonide-formoterol 160-4.5 mcg/actuation HFA aerosol inhaler 2 puff INHALATION BID omeprazole 20 MG capsule,delayed release(DR/EC) 20 mg PO DAILY digoxin 250 MCG tablet 125 mcg PO DAILY losartan 25 mg tablet 12.5 mg PO BID ipratropium-albuterol 1 PUFF inhaler 1 puff INHALATION DAILY sertraline 100 mg tablet 100 mg PO DAILY finasteride 5 mg tablet 5 mg PO DAILY sennosides-docusate sodium 8.6-50 mg tablet 1 tab-cap PO QHS Changed lorazepam 1 MG tablet 1 mg PO Q6H PRN Qty: 8 0RF Discontinued azithromycin 250 mg tablet 250 mg PO DAILY Referrals / Follow Up: Teto Herman MD [Med Staff - Active Staff] - Within 2 Weeks Care Physician,No Primary [Primary Care Provider] -
--- NOTE | 2023-12-09 14:26 | DS.PCM_ITS ---
Providers Date of Admission: 12/05/23 Date of Discharge: 12/09/23 Primary Care Physician: Karol Primary Care Phys Consultations 12/06/23 12:47 Consult: Pain Management Routine Consulting Provider: Teto Herman Reason for Consult: L1 compression fracture EMERGENT Consult: No MD Notified: Yes Date Notified: 12/06/23 Time Notified: 12:48 Method of Notification: Verbal Reason For Visit: CLOSED L1 COMP FX AFTER FALL, INTRACTABLE BACK NORI Diagnosis Discharge Diagnosis (1) Intractable low back pain: Status: Acute Code(s): M54.59 - Other low back pain Plan Patient is an 83-year-old gentleman admitted with intractable back pain found to have L1 compression admitted to regular nursing floor for pain management 1. Acute low back pain ? Secondary to L1 compression fracture. Patient admitted to regular nursing floor managed with pain meds with consultation placed to pain management with plans for patient to undergo kyphoplasty ? 12/09/2023 ; Patient seen pain continue to improve with conservative management. Case was discussed with pain management plan is to pursue conservative management with no kyphoplasty planned. 2. Acute complicated cystitis with Pseudomonas ? Patient placed on Levaquin. ? 12/09/2023 patient had no reaction to Levaquin despite ciprofloxacin being listed as an allergy 3. COPD ? Without acute exacerbation aerosol treatments as needed 4. Chronic hypoxic respiratory failure ? Secondary to COPD patient is on baseline home oxygen 2 L at rest 5. Coronary artery disease ? With previous PCI patient is on guideline directed medical therapy 6. History of lung CA ? Currently in remission 7. BPH with lower urinary obstructive symptoms - Patient treated with finasteride 8. Depression with anxiety ? Patient is on sertraline 9. GERD ? On PPI 10. Diabetes mellitus type 2 ? Managed on diet placed on Accu-Cheks before meals and at bedtime with sliding scale coverage 11. Physical deconditioning ? Requested for PT OT eval and pediatric social worker to assist with discharge planning 12. DVT prophylaxis ? On enoxaparin Time spent in the patient's overall evaluation,decision-making process, review of diagnostic data, adjustment of management, discussion with other providers, nursing nursing and ancillary staff involved in patient's care documentation, 40 minutes Medications at Discharge Home Medications theophylline 300 mg tablet,extended release,12 hr 300 mg PO DAILY breathing 11/13/15 albuterol sulfate 90 mcg/actuation aerosol inhaler 1 - 2 puff inhalation Q4H PRN PRN Sob &/Or Wheezing ##1 08/26/17 ipratropium 0.5 mg-albuterol 3 mg (2.5 mg base)/3 mL nebulization soln 3 ml inhalation 4X/DAY PRN PRN Sob &/Or Wheezing 03/11/18 nitroglycerin 0.4 mg sublingual tablet 0.4 mg sublingual Q5M PRN Chest Pain 03/11/18 primidone 50 mg tablet 150 mg PO TID seizures 10/27/18 acetaminophen 325 mg capsule 650 mg PO Q4H PRN PRN pain/fever 04/11/19 omeprazole 20 mg capsule,delayed release 20 mg PO DAILY stomach 05/08/19 digoxin 250 mcg (0.25 mg) tablet 125 mcg PO DAILY heart 05/09/19 budesonide-formoterol HFA 160 mcg-4.5 mcg/actuation aerosol inhaler 2 puff inhalation BID copd 12/06/19 furosemide 20 mg tablet 40 mg PO BID edema 12/06/19 losartan 25 mg tablet 12.5 mg PO BID bp 12/06/19 mirtazapine 15 mg tablet 15 mg PO QHS sleep 12/06/19 oxycodone 5 mg tablet 5 mg PO Q6H 12/06/19 ipratropium 20 mcg-albuterol 100 mcg/actuation mist for inhalation 1 puff inhalation DAILY 04/19/20 aspirin 81 mg tablet,delayed release (Adult Aspirin Regimen) 81 mg PO DAILY 06/13/20 guaifenesin 1,200 mg tablet, extended release 12 hr 1,200 mg PO QAM Congestion 06/13/20 prednisone 10 mg tablet 20 mg PO DAILY 06/13/20 finasteride 5 mg tablet 5 mg PO DAILY 12/05/23 sennosides 8.6 mg-docusate sodium 50 mg tablet 1 tab-cap PO QHS 12/05/23 sertraline 100 mg tablet 100 mg PO DAILY 12/05/23 L.acidophil,salivari-Bifido bifidum-Strep thermoph 175 mg capsule 1 cap PO 4X/DAY #0 caps 12/09/23 aluminum-mag hydroxide-simethicone 400 mg-400 mg-40 mg/5 mL oral susp (Almacone- 2) 30 ml PO Q6H PRN PRN Gastric Burning #0 mL 12/09/23 food supplemt, lactose-reduced 0.08 gram-1.5 kcal/mL oral liquid (Ensure Plus High Protein) 120 ml PO TIDCM #0 mL 12/09/23 levofloxacin 500 mg tablet 500 mg PO DAILY@0600 #0 tabs 12/09/23 lidocaine 5 % topical patch 2 patch topical DAILY #0 ea 12/09/23 lorazepam 1 mg tablet 1 mg PO Q6H PRN anxiety #8 tabs 12/09/23 oxycodone 5 mg capsule 5 mg PO Q6H PRN pain 5 days #14 caps 12/09/23 Physical Exam Narrative GENERAL: cooperative HEENT: Atraumatic; normocephalic EYES; Anicteric, Normal Conjunctiva NECK; supple, normal thyroid, RESPIRATORY: Diminished to auscultation CARDIOVASCULAR: Regular S1 S2, GI: soft, normoactive bowel sounds, : No Renal angle tenderness; EXTREMITIES: No edema, no clubbing, MUSCULOSKELETAL: no muscle wasting NEURO: Awake; no lateralizing signs. SKIN: No Rash PSYCH; Flat affect Weight / BMI Weight Weight: 59 kg Body Mass Index (BMI) 20.9 ABG / Lab / Microbiology Data 12/09/23 07:08 12/09/23 07:08 Laboratory: Laboratory Results - last 24 hr 12/06/23 06:00: Miscellaneous Test 12/09/23 07:08: WBC 7.0, RBC 4.18 L, Hgb 12.3 L, Hct 38.1 L, MCV 91.1, MCH 29.4, MCHC 32.3, RDW Std Deviation 47.4 H, RDW Coeff of Ye 14.0, Plt Count 289, MPV 10.4, Immature Gran % (Auto) 1.300 H, Neut % (Auto) 69.3, Lymph % (Auto) 20.4, [place] % (Auto) 7.9, Eos % (Auto) 0.7, Baso % (Auto) 0.4, Absolute Neuts (auto) 4.8, Absolute Lymphs (auto) 1.42, Nucleated RBC % 0, Sodium 141, Potassium 3.9, Chloride 104, Carbon Dioxide 29.0, Anion Gap 8, BUN 30 H, Creatinine 1.09, Estim Creat Clear Calc 41.35, Est GFR (MDRD) Af Amer 83, Est GFR (MDRD) Non-Af 68, B UN/Creatinine Ratio 27.5 H, Glucose 146 H, Calcium 8.7, Phosphorus 2.6, M agnesium 2.8 H 12/09/23 08:21: POC Glucose 159 H Microbiology: Microbiology 12/06/23 07:01 Urine Catheter - Catheter Urine Culture - Final Pseudomonas aeruginosa D/C Instructions Discharge Diet: No restrictions Discharge Activity: Return to Normal Activity Call your doctor if you observe: Fever of 101 or Higher, Shortness of breath, Fainting spells and Chest pain Meaningful Use Info Meaningful Use Meaningful Use Diagnoses (Choose all that apply): None applicable Ischemic Stroke Statin Dosing Therapy Reference: STATIN DOSE THERAPY REFERENCE: * Patients > 75 years receive moderate or high dose statin therapy. * Patients 75 years or YOUNGER should receive HIGH intensity statin dose unless contraindicated. You will be required to document reason for non-treatment if statin daily dose does not meet guidelines. HIGH DOSE STATIN THERAPY DAILY Atorvastatin > than or = to 40 mg Rosuvastatin > than or = to 20 mg Amlodipine + Atorvastatin > than or = to 2.5/40 mg Ezetimibe + Simvastatin 10/80 mg Simvastatin 80mg Discharge Plan Admission Admit Date/Time: 12/05/23 22:54 Attending Provider: Asad Cabrera Primary Care Provider: Care Physician,No Primary Consulting Providers: Asad Sims; Teto Herman; Ellis Sánchez Discharge Orders/Prescriptions Prescriptions: New lidocaine 5 % Adhesive Patch,Medicated 2 patch topical DAILY Qty: 0 0RF Protocol: *Topical Application Instructions APPLICATION INSTRUCTIONS: Apply to Low Back. levofloxacin 500 mg Tablet 500 mg PO DAILY@0600 Qty: 0 0RF alum-mag hydroxide-simeth [Almacone-2] 400-400-40 mg/5 mL Suspension 30 ml PO Q6H PRN PRN (Reason: Gastric Burning) Qty: 0 0RF L.acidoph,saliva-B.bif-S.therm 175 mg Capsule 1 cap PO 4X/DAY Qty: 0 0RF Ensure Plus High Protein 0.08 gram-1.5 kcal/mL Liquid 120 ml PO TIDCM Qty: 0 0RF oxycodone 5 mg capsule 5 mg PO Q6H PRN (Reason: pain) 5 Days Qty: 14 0RF Continued primidone 50 mg tablet 150 mg PO TID mirtazapine 15 mg tablet 15 mg PO QHS Patient Comments: SLEEP AIDE Rx Instructions: hold while on linezolid oxycodone 5 mg tablet 5 mg PO Q6H prednisone 10 mg tablet 20 mg PO DAILY aspirin [Adult Aspirin Regimen] 81 mg tablet,delayed release (DR/EC) 81 mg PO DAILY theophylline 300 MG tablet 300 mg PO DAILY Patient Comments: LUNG HEALTH guaifenesin 1,200 mg tablet extended release 12hr 1,200 mg PO QAM albuterol sulfate 1 INHALER inhaler 1 - 2 puff INHALATION Q4H PRN PRN (Reason: Sob &/Or Wheezing) Qty: 1 0RF nitroglycerin 0.4 MG tablet 0.4 mg SL Q5M PRN (Reason: Chest Pain) ipratropium-albuterol 3 ML solution for nebulization 3 ml INHALATION 4X/DAY PRN PRN (Reason: Sob &/Or Wheezing) furosemide 20 mg tablet 40 mg PO BID Patient Comments: ONE TAB BY MOUTH NEEDED FOR SWELLING. UP TO ONE TAB TWICE WEEKLY. acetaminophen 325 MG capsule 650 mg PO Q4H PRN PRN (Reason: pain/fever) budesonide-formoterol 160-4.5 mcg/actuation HFA aerosol inhaler 2 puff INHALATION BID omeprazole 20 MG capsule,delayed release(DR/EC) 20 mg PO DAILY digoxin 250 MCG tablet 125 mcg PO DAILY losartan 25 mg tablet 12.5 mg PO BID ipratropium-albuterol 1 PUFF inhaler 1 puff INHALATION DAILY sertraline 100 mg tablet 100 mg PO DAILY finasteride 5 mg tablet 5 mg PO DAILY sennosides-docusate sodium 8.6-50 mg tablet 1 tab-cap PO QHS Changed lorazepam 1 MG tablet 1 mg PO Q6H PRN Qty: 8 0RF Discontinued azithromycin 250 mg tablet 250 mg PO DAILY Referrals / Follow Up: Teto Herman MD [Med Staff - Active Staff] - Within 2 Weeks Care Physician,No Primary [Primary Care Provider] - Disposition Disposition (needs filled in before D/C Order can be placed): Assisted Facility Charges/Coding Visit Charges Inpatient E&M: 82245 Disch Hosp >30min
--- NOTE | 2023-12-09 15:10 | CASEMGMT ---
Social Work Precert has been obtained for pt to discharge to [facility]. Physician updated and pt is ready for dc today. 7000 exemption form completed in [facility]. Transportation arranged with [facility] for 4pm bulk picker via wheelchair van. Discharge orders sent to [facility] via [facility]. Pt, Pt's dgt, nursing and [facility] notified of bulk picker time. Disposition: [facility], skilled level of care under convalescent stay [facility]
== END 2023-12-09 16:26 | disposition skilled nursing facility (03) | DRG 552 ==
LOC: ED 22:14 → MS3 23:12
PROVIDERS: Admitting Provider Internal Medicine; Emergency Provider Emergency Medicine; Visit Provider Internal Medicine
DX: S32.010A Wedge compression fracture of first lumbar vertebra, initial encounter for closed fracture (principal); J96.11 Chronic respiratory failure with hypoxia; T83.511A Infection and inflammatory reaction due to indwelling urethral catheter, initial encounter; N30.00 Acute cystitis without hematuria; I27.20 Pulmonary hypertension, unspecified; E11.22 Type 2 diabetes mellitus with diabetic chronic kidney disease; B96.5 Pseudomonas (aeruginosa) (mallei) (pseudomallei) as the cause of diseases classified elsewhere; J44.9 Chronic obstructive pulmonary disease, unspecified; I12.9 Hypertensive chronic kidney disease with stage 1 through stage 4 chronic kidney disease, or unspecified chronic kidney disease; E78.5 Hyperlipidemia, unspecified; I25.10 Atherosclerotic heart disease of native coronary artery without angina pectoris; K21.9 Gastro-esophageal reflux disease without esophagitis; S39.012A Strain of muscle, fascia and tendon of lower back, initial encounter; N18.2 Chronic kidney disease, stage 2 (mild); F41.8 Other specified anxiety disorders; W18.39XA Other fall on same level, initial encounter; M19.90 Unspecified osteoarthritis, unspecified site; R26.2 Difficulty in walking, not elsewhere classified; Z95.5 Presence of coronary angioplasty implant and graft; R53.1 Weakness; Z87.891 Personal history of nicotine dependence; G89.4 Chronic pain syndrome; Z79.82 Long term (current) use of aspirin; R82.71 Bacteriuria; R82.81 Pyuria; N40.1 Benign prostatic hyperplasia with lower urinary tract symptoms; Z85.118 Personal history of other malignant neoplasm of bronchus and lung; Z79.899 Other long term (current) drug therapy; Z79.51 Long term (current) use of inhaled steroids; Y93.89 Activity, other specified
CPT/HCPCS: 36415; 72158; 74177; 80048; 80053; 80076; 80162; 81001; 82962; 83036; 83735; 84100; 84443; 85025; 87077; 87086; 87088; 87186; 93306; 94640; 94668; 97110; 97116; 97162; 97166; 97802; 99281; A9575; J7030; Q9957; Q9967; A4216

== ENCOUNTER → 2024-01-11 | Outpatient (CLI) | payer MEDICARE, BC, SELFPAY ==
[2018-11-07 13:51] VITALS: BMI 23.5
== END | disposition home or self-care (01) ==
LOC: LABSPEC 13:24
PROVIDERS: Referring Provider Nurse Practitioner; Visit Provider Nurse Practitioner
DX: N39.0 Urinary tract infection, site not specified (principal)
CPT/HCPCS: 87077; 87086; 87088; 87186

== ENCOUNTER → 2024-03-27 | Outpatient (CLI) | payer MEDICARE, BC, SELFPAY ==
[2018-11-07 13:51] VITALS: BMI 23.5
== END | disposition home or self-care (01) ==
DX: R82.90 Unspecified abnormal findings in urine (principal)
CPT/HCPCS: 87077; 87086; 87088; 87186